=== PATIENT | female | born 1935 | race Hispanic/Latino ===

== ENCOUNTER 2016-06-07 09:10 | Inpatient (IN) | payer MEDICARE, OTHER ==
[2016-06-07 09:58] VITALS: BMI 37.9
[2016-06-07 11:01] LABS: ADD MANUAL DIFF? NO
[2016-06-07 11:23] LABS: BILIRUBIN,TOTAL 0.6 mg/dL (0.2-1.3); CALCIUM 9.8 mg/dL (8.4-10.5); POTASSIUM 4.5 mmol/L (3.6-5.0); TOTAL PROTEIN 7.9 g/dL (5.8-8.3)
[2016-06-07 11:24] LABS: BASO # 0.04 K/mm3 (0.0-2.0); BASO % 0.4 % (0.0-3.0); EOS # 0.3 (0.0-0.7); EOS % 3.7 % (1.5-5.0); GRAN % 56.1 % (50.0-68.0); HEMATOCRIT 35.9 % (36.0-48.0); LYMPH # 2.9 (1.2-3.4); LYMPH % 32.4 % (22.0-35.0); MEAN CELL VOLUME 94.5 fL (80.0-105.0); MEAN CORPUSCULAR HEMOGLOBIN 30.5 pg (25.0-35.0); MEAN CORPUSCULAR HGB CONC 32.3 g/dl (31.0-37.0); MEAN PLATELET VOLUME 11.4 fl (7.0-11.0); MONO # 0.7 (0.1-0.6); MONO % 7.4 % (1.0-6.0); PLATELET COUNT 271 10^3/uL (120.0-450.0); RED CELL DISTRIBUTION WIDTH 14.1 % (11.5-14.5); WHITE BLOOD COUNT 8.9 10^3/ul (4.5-11.0)
[2016-06-07] MEDS ORDERED: Dextrose 50% SYRINGE Inj (50 ml) IVP STA (11:33)
[2016-06-07] MEDS ORDERED: AMPICILLIN IVPB ONE (11:38)
[2016-06-07] MEDS ORDERED: SULBACTAM IVPB ONE (11:38)
--- NOTE | 2016-06-07 11:54 | ED PDOC ---
Arrival/HPI - General Historian: Patient, Family - General Chief Complaint: Lower Extremity Problem/Injury Time Seen by Provider: 06/07/16 10:16 - History of Present Illness Narrative History of Present Illness (Text): 06/07/16 11:52 80-year-old female presents today sent in by Dr. Patterson for osteomyelitis of the right second toe. Patient had second toe amputation in February has been on Levaquin at home. Patient had MRI on the which showed osteomyelitis of the distal metatarsal and proximal phalanx. Patient sent in for admission for amputation. (Haley Pan) Past Medical History - Provider Review Nursing Documentation Reviewed: Yes - Travel History Have you recently traveled outside [place] w/in the past 3 mons?: No - Infectious Disease Hx of Infectious Diseases: None - Reproductive Menopause: Yes - Cardiac Hx Hypertension: Yes - Pulmonary Hx Respiratory Disorders: No - Neurological Hx Neurological Disorder: No - HEENT Hx HEENT Disorder: No - Renal Hx Renal Disorder: No - Endocrine/Metabolic Hx Diabetes Mellitus Type 2: Yes Hx Hypothyroidism: Yes - Hematological/Oncological Hx Blood Disorders: No - Integumentary Hx Dermatological Disorder: No - Musculoskeletal/Rheumatological Hx Arthritis: Yes - Gastrointestinal Hx Gastrointestinal Disorders: No - Genitourinary/Gynecological Hx Reproductive Disorders: No - Psychiatric Hx Psychophysiologic Disorder: Yes Hx Depression: Yes Hx Substance Use: No - Surgical History Hx Amputation: Yes (LEFT GREAT TOE, RIGHT 2ND TOE) Hx Musculoskeletal Surgery: Yes - Anesthesia Hx Anesthesia: Yes Hx Anesthesia Reactions: (not known) Hx Malignant Hyperthermia: No - Suicidal Assessment Feels Threatened In Home Enviroment: No Family/Social History - Physician Review Nursing Documentation Reviewed: Yes Family/Social History: Unknown Family HX Smoking Status: Never Smoked Hx Alcohol Use: No Hx Substance Use: No Hx Substance Use Treatment: No Allergies/Home Meds Allergies/Adverse Reactions: Allergies No Known Allergies Allergy (Verified 06/07/16 09:54) Home Medications: Home Meds Medication Instructions Recorded Confirmed Acetaminophen [Tylenol 325mg tab] 650 mg PO Q4 PRN 12/27/15 06/07/16 Amino Acids/Protein Hydrolys 30 ml PO DAILY 12/27/15 06/07/16 [Pro-Stat Profile Liquid] Insulin Human NPH/Reg [HumuLIN 45 units SC QAM 12/27/15 06/07/16 70/30 (NPH/Reg)] QUEtiapine [Seroquel] 25 mg PO HS 02/23/16 06/07/16 Insulin NPH Hum/Reg Insulin Hm 20 units SC QPM 02/24/16 06/07/16 [Humulin 70-30 Vial] Metoprolol Succinate [Toprol XL] 50 mg PO DAILY 02/24/16 06/07/16 Multivit-Min/FA/Lycopen/Lutein 1 each PO DAILY 02/24/16 06/07/16 [Centrum Silver Tablet] Vitamins A and D [Vitamin A and D] 1 tab PO DAILY 02/24/16 06/07/16 levoFLOXacin [Levaquin] 500 mg PO DAILY 06/07/16 06/07/16 Review of Systems - Review of Systems Constitutional: absent: Fatigue, Fevers Respiratory: absent: SOB, Cough Cardiovascular: absent: Chest Pain, Palpitations Gastrointestinal: absent: Abdominal Pain, Nausea, Vomiting Genitourinary Female: absent: Dysuria Musculoskeletal: absent: Arthralgias Skin: Cellulitis Neurological: absent: Headache Physical Exam Vital Signs Reviewed: Yes Temperature: Afebrile Blood Pressure: Normal Pulse: Regular Respiratory Rate: Normal Appearance: Positive for: Well-Appearing, Non-Toxic, Comfortable Pain Distress: None Mental Status: Positive for: Alert and Oriented X 3 - Systems Exam Head: Present: Atraumatic Respiratory/Chest: Present: Clear to Auscultation Cardiovascular: Present: Regular Rate and Rhythm Lower Extremity: Present: Normal ROM, Swelling, Erythema, Capillary Refill < 2 s , Other (+ edema and warmth noted to left 2nd toe; ). No: CALF TENDERNESS, Tenderness, Deformity Vital Signs Temp Pulse Resp BP Pulse Ox 06/07/16 13:43 68 18 121/63 99 06/07/16 12:37 71 18 122/61 99 06/07/16 11:00 79 18 124/65 99 06/07/16 09:49 98.2 F 82 19 126/61 99 Medical Decision Making ED Course and Treatment: 06/07/16 12:46 I was available for consultation during PA evaluation. The chart reviewed by me , and I agree with disposition. The documented history was done by the physician sr. payroll processor. The documented physical exam was done by physician sr. payroll processor. The documented procedures were done by physician sr. payroll processor. (Dread Dove) 06/07/16 11:54 80-year-old female presents today for admission for right second toe osteomyelitis Patient's sent in with prescription for Unasyn and consult Dr. Oneill. CBC wnl CMP: glucose; 49 finger stick; 39 amp of d50 given. blood cultures pending: Unasyn ordered IV pt reassessment; pt non toxic; fingerstick; 101 eating sandwich in er. case discussed with dr. toledo; who saw patient at bedside discussed patients blood glucose level with dr. dove; impression: osteomyelitis admit to med/surg (Haley Pan) - Lab Interpretations Lab Results: 06/07/16 11:00 06/07/16 11:00 Lab Results 06/07/16 12:35: POC Glucose (mg/dL) 101 06/07/16 11:43: POC Glucose (mg/dL) 38 L* 06/07/16 11:00: WBC 8.9, RBC 3.80, Hgb 11.6 L, Hct 35.9 L, MCV 94.5, MCH 30.5, MCHC 32.3, RDW 14.1, Plt Count 271, MPV 11.4 H, Gran % 56.1, Lymph % (Auto) 32.4 , [place] % (Auto) 7.4 H, Eos % (Auto) 3.7, Baso % (Auto) 0.4, Gran # 5.00, Lymph # 2.9, [place] # 0.7 H, Eos # 0.3, Baso # 0.04, Sodium 140, Potassium 4.5, Chloride 102, Carbon Dioxide 30, Anion Gap 13, BUN 51 H, Creatinine 1.6 H, Est GFR ( Amer) 38, Est GFR (Non-Af Amer) 31, Random Glucose 49 L* D, Calcium 9.8, Total Bilirubin 0.6, AST 50 H, ALT 27, Alkaline Phosphatase 228 H, Total Protein 7.9, Albumin 3.9, Globulin 4.0, Albumin/Globulin Ratio 1.0 L - Medication Orders Current Medication Orders: Acetaminophen (Tylenol 325mg Tab) 650 mg PO Q4 PRN PRN Reason: Pain, Mild (1-3) Atorvastatin Calcium (Lipitor) 20 mg PO DAILY [facility] Furosemide (Lasix) 40 mg PO DAILY [facility]AME Last Admin: 06/07/16 15:58 Dose: Piperacillin Sod/Tazobactam Sod (Zosyn 3.375 In Ns 100ml) 100 mls @ 200 mls/hr IVPB Q8 [facility] PRN Reason: Protocol Stop: 06/14/16 14:01 Insulin Human Lispro (Humalog Med) 0 units SC ACHS [facility] PRN Reason: Protocol Levothyroxine Sodium (Synthroid) 75 mcg PO DAILY [facility] Last Admin: 06/07/16 16:00 Dose: Metoprolol Succinate (Toprol Xl) 50 mg PO DAILY [facility] Last Admin: 06/07/16 16:00 Dose: Non-Formulary Medication (Calcium Carbonate/Vitamin D [Caltrate 600 + D 600 Mg- 200 Iu]) 1 tab PO BID [facility] Pantoprazole Sodium (Protonix Ec Tab) 40 mg PO 0730 [facility] Potassium Chloride (K-Dur 20 Meq Er Tab) 20 meq PO DAILY [facility] Last Admin: 06/07/16 15:58 Dose: Quetiapine Fumarate (Seroquel) 25 mg PO HS [facility] PRN Reason: Protocol Discontinued Medications Dextrose (Dextrose 50% Inj) 50 ml IVP STAT STA Stop: 06/07/16 11:34 Last Admin: 06/07/16 11:52 Dose: 50 ML IVP Administration Document 06/07/16 11:52 EQ (Rec: 06/07/16 11:52 EQ [id number]) Charges for Administration # of IVP Administrations 1 Ampicillin Sodium/Sulbactam Sodium (Unasyn 1 Gm-0.5 Gm) 100 mls @ 100 mls/hr IVPB ONCE ONE PRN Reason: Protocol Stop: 06/07/16 12:37 Last Admin: 06/07/16 12:42 Dose: 100 MLS/HR eMAR Start Stop Document 06/07/16 12:42 EQ (Rec: 06/07/16 12:43 EQ [id number]) Intravenous Solution Start Date 06/07/16 Start Time 12:42 Disposition/Present on Arrival - Present on Arrival Any Indicators Present on Arrival: Yes History of DVT/PE: No History of Uncontrolled Diabetes: Yes Urinary Catheter: No History of Decub. Ulcer: No History Surgical Site Infection Following: None - Disposition Have Diagnosis and Disposition been Completed?: Yes Disposition Time: 11:20 Patient Plan: Admission - Disposition Diagnosis: Osteomyelitis Disposition: HOSPITALIZED Patient Problems: Current Active Problems Problem Status Diagnosed Osteomyelitis Acute Condition: FAIR
[2016-06-07] MEDS ORDERED: Vancomycin 1gm in NS 250ml 250 ML IVPB SCH (13:00)
[2016-06-07] MEDS ORDERED: Levothyroxine 75 MCG TAB PO SCH (13:00)
[2016-06-07] MEDS ORDERED: Metoprolol Succinate 50 mg XL Tab PO SCH (13:00)
--- NOTE | 2016-06-07 13:45 | HP ---
The patient is a 80-year-old white female who was seen by Dr. Patterson this morning. She was being fo llowed by Dr. Patterson in the wound care center. She felt that patient has osteomyelitis of right sec ond toe, so she ordered MRI on 06/04, that shows osteomyelitis of distal metatarsal and proximal phala nx and so she is being referred to be admitted and possible amputation. Denies any fever or chills. No history of nausea or vomiting. She has been strictly controlling her diabetes lately. No histor y of cough, congestion. No nausea or vomiting. PAST MEDICAL HISTORY: Significant for: 1. Insulin-dependent diabetes. 2. Hypertension. 3. Chronic left heel ulcer. 4. Peripheral vascular disease. 5. 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 6. Status post fall and had ____ trochanteric fracture. 7. Morbid obesity. 8. Hypertension. ALLERGIES: She is not allergic to any medications. MEDICATIONS AT HOME: She is on Seroquel 25 at bedtime, potassium 20 mEq daily, Protonix 40 daily, mu ltivitamin, levothyroxine 75 mcg daily, Levemir 8 units at bedtime, atorvastatin 20 mg daily. SOCIAL HISTORY: She is single, lives with her daughter. Denies smoking, drinking or alcohol use. REVIEW OF SYSTEMS: Significant for bilateral hand deformity, difficulty grabbing things with good st rength. 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 Complained of back pain, complained of discomfort in the feet. PHYSICAL EXAMINATION: GENERAL: On examination, she is awake and alert, communicative. VITAL SIGNS: She is afebrile, pulse 79, respirations 18, blood pressure 122/61. LUNGS: Bilateral good airflow, no rhonchi or crackle. HEART: S1, S2 audible, no murmur. ABDOMEN: Soft, nontender, no rebound, no guarding. NEUROLOGIC: The patient is awake and alert, communicative. Moves all extremities. Status post left greater toe and second toe amputation. Left second toe positive erythema, edema. ASSESSMENT AND PLAN: 1. Right second toe osteomyelitis. 2. Insulin-dependent diabetes. 3. Hypertension. 4. Hyperlipidemia. 5. Peripheral vascular disease. 6. Deconditioning and difficulty walking. PLAN: The patient will be started on IV antibiotic. Cultures have been done. We will monitor blood sugar closely. Resume her usual medication. Dr. Patterson and ID on consult. Liam Fernandez MD cc: [phone] TT: 06/07/2016 13:44:27 sn
[2016-06-07] MEDS ORDERED: Piperacillin/Tazobact 3.375 gm 100 ML IVPB SCH (14:00)
[2016-06-07] MEDS: Potassium Chloride 20 mEq ER Tab PO SCH (15:58)
[2016-06-07] MEDS ORDERED: CALCIUM CARBONATE PO SCH (18:00)
[2016-06-07] MEDS ORDERED: VITAMIN D PO SCH (18:00)
[2016-06-07] MEDS ORDERED: [UNRECOGNIZED DRUG - OTHER] PO SCH (18:00)
[2016-06-07] MEDS: Insulin Lispro (humaLOG) MEDIUM Coverage SC SCH ×2 (18:02→22:30)
[2016-06-07] MEDS: Insulin Human NPH/Reg 70/30 Vial(3 ml) SC SCH (18:03)
[2016-06-07] MEDS ORDERED: Dextrose 5%/0.45% NS 1,000 ML IV SCH (19:00)
--- NOTE | 2016-06-07 19:59 | US ---
PROCEDURE: Lower extremity MCKENNA exam HISTORY: Peripheral vascular disease with pain and ulceration.. Diabetes. PHYSICIAN(S): Grant De La Rosa MD. FINDINGS: The resting MCKENNA's are normal: right, 1.01and left, 1.02. The brachial systolic pressures are symmetric. The low thigh pressures and waveforms are relatively normal. The calf PVR waveforms augment normally. No significant gradients are noted across the thighs. The ankle and metatarsal waveforms are relatively normal and symmetric. No significant pressure gradients are noted across the lower legs. IMPRESSION: 1. Relatively normal MCKENNA and PVR examination at rest.
--- NOTE | 2016-06-07 20:51 | CARD ---
APPROVED REPORT EKG Measurement Heart [id number] <Conclusion> Sinus rhythm with 1st degree AV block Moderate voltage criteria for LVH, may be normal variant Cannot rule out Septal infarct, age undetermined Abnormal ECG
[2016-06-07] MEDS ORDERED: Influenza Vaccine 45 MCG/0.5 ml IM ONE (20:52)
[2016-06-07] MEDS ORDERED: Pneumococcal 23-Valent Vaccine IM ONE (20:52)
[2016-06-07] MEDS: Piperacillin/Tazobact 3.375 gm 100 ML IVPB SCH (21:22)
[2016-06-08] MEDS: Piperacillin/Tazobact 3.375 gm 100 ML IVPB SCH ×3 (05:17→23:34)
[2016-06-08] MEDS ORDERED: Lidocaine 2% Inj (20ml) ONE (07:25)
[2016-06-08] MEDS ORDERED: Gentamicin 80 mg/2mL Inj. ONE (07:25)
[2016-06-08] MEDS: Insulin Lispro (humaLOG) MEDIUM Coverage SC SCH ×4 (07:30→21:44)
[2016-06-08] MEDS ORDERED: HYDROmorphone 0.5 mg/0.5 ml ISec IVP PRN (07:52)
[2016-06-08] MEDS ORDERED: Propofol 10 mg/ml Inj (20 ML) ONE (08:02)
[2016-06-08] MEDS ORDERED: Midazolam 5 MG/5 ML VIAL ONE (08:02)
--- NOTE | 2016-06-08 09:28 | PCM.SURG1 ---
Surgeon's Initial Post Op Note - Surgeon's Notes Surgeon: Dr. Patterson Model Set Artist: Dr. Taylor PGY-1 Type of Anesthesia: IV Sedation, Local Anesthesia Administered By: Dr. Owens Pre-Operative Diagnosis: right foot 2nd digit osteomyelitis Operative Findings: see dictation. 16ml 2% lidocaine plain. 3-0 vicryl, 3-0 nylon. KARO drain Post-Operative Diagnosis: same as preop Operation Performed: right foot 2nd digit amputation with metatarsal head resection Specimen/Specimens Removed: bone and soft tissue Estimated Blood Loss: EBL {In ML}: 20 Blood Products Given: N/A Drains Used: Haim Apple Post-Op Condition: Good Date of Surgery/Procedure: 06/08/16 Time of Surgery/Procedure: 08:00
[2016-06-08] MEDS ORDERED: Oxycodone/Acetaminophen 5/325 mg Tab PO PRN ×2 (09:29)
--- NOTE | 2016-06-08 10:41 | RAD ---
HISTORY: pre-op COMPARISON: Comparison is made to 02/23/2016 FINDINGS: LUNGS: No evidence of new infiltrate or consolidation in the lungs. PLEURA: No significant pleural effusion identified, no pneumothorax apparent. CARDIOVASCULAR: Normal. OSSEOUS STRUCTURES: No significant abnormalities. VISUALIZED UPPER ABDOMEN: Normal. OTHER FINDINGS: None. IMPRESSION: No active disease.
[2016-06-08] MEDS: Insulin Human NPH/Reg 70/30 Vial(3 ml) SC SCH ×2 (11:00→17:20)
[2016-06-08] MEDS: Potassium Chloride 20 mEq ER Tab PO SCH (11:15)
[2016-06-08] MEDS: Cholecalciferol 400 Intl Units Tab PO SCH (11:16)
[2016-06-08] MEDS: Levothyroxine 75 MCG TAB PO SCH (11:16)
[2016-06-08] MEDS: Metoprolol Succinate 25 mg XL Tab PO SCH (11:16)
[2016-06-08] MEDS: Pantoprazole 40 mg EC Tab PO SCH (11:16)
[2016-06-08] MEDS ORDERED: Metoprolol Succinate 50 mg XL Tab PO SCH (13:00)
--- NOTE | 2016-06-08 13:20 | PN ---
DATE: 06/08/2016 The patient is a 80-year-old. She is examined lying in bed. She just came from surgery. She had ri ght 2nd toe amputation done today with KARO drain in. PHYSICAL EXAMINATION: GENERAL: She is awake, alert, oriented, communicative, not in any distress. VITAL SIGNS: She is afebrile, pulse 93, respirations 20, blood pressure 157/79. LUNGS: Bilateral fair airflow, no rhonchi or crackle. HEART: S1, S2 audible. ABDOMEN: Soft, obese, nontender, no rebound, no guarding. NEUROLOGIC: She is awake and alert, communicative. EXTREMITIES: Moves all extremities. The right foot is wrapped. The left heel is also wrapped in dr ness. LABORATORY: ESR is 66. Chemistry: Blood sugar is 249. Blood cultures are negative. ASSESSMENT AND PLAN: 1. Right 2nd toe osteomyelitis, status post amputation. 2. Non-insulin dependent diabetes. 3. Hypertension. 4. Left heel ulcer healing. 5. Microvascular disease. 6. Bilateral hand deformities status post multiple surgeries by . 7. Morbid obesity. 8. Hypertension. 9. Healing right buttock ulcer. PLAN: Currently, the patient is on aspirin 81 daily. She is on losartan. Monitor blood sugar. She is on potassium supplementation. She is getting p.o. Lasix, statins, painkillers have been started, Percocet by Dr. Patterson. Started on some Colace for opiate-induced constipation. She is getting Zo syn q. 8 hours and will continue that. We will start her on DVT prophylaxis . Follow up CBC an d CMP in a.m. Liam Fernandez MD cc: [id number] TT: 06/08/2016 13:19:01 Confirmation # [id number] Dictation # [id number]
--- NOTE | 2016-06-08 13:37 | RAD ---
PROCEDURE: Right Foot Radiographs. HISTORY: s/p right foot surgery COMPARISON: Preoperative study 06/07/2016. FINDINGS: BONES: Status post resection of 2nd digit and distal 2nd metatarsal. Surgical drains identified. Otherwise no interval change. Stable appearance of distal 5th metatarsal fracture. JOINTS: Findings suggest Charcot common neuropathic foot. SOFT TISSUES: Normal. OTHER FINDINGS: None. IMPRESSION: Satisfactory postoperative status.
--- NOTE | 2016-06-08 13:59 | CP.PCM.CON ---
History of Present Illness - History of Present Illness History of Present Illness: 80 year old female with PMH of obesity with BMI 38, osteoarthritis, HTN, DM, hypothyroidism, S/P left toe amputation, S/P right hip surgery was sent by Dr. Patterson for admission because of osteomyelitis of the right 2nd toe (proximal phalanx and distal metatarsal area) as seen on the MRI which was done on June 04. The patient is for OR today and I saw her shortly before the surgery. Infectious Diseases consult is requested for antibiotic management. The patient prior to OR had no fever or chills, no nausea or vomiting, no chest pain, no headache, no diarrhea, no dysuria. Social history: no smoking, no alcohol abuse, no illicit drug use Review of Systems - Review of Systems All systems: reviewed and no additional remarkable complaints except (as per HPI ) Past Patient History - Infectious Disease Hx of Infectious Diseases: None - Past Medical History & Family History Past Medical History?: Yes Past Family History: Reviewed and not pertinent - Past Social History Smoking Status: Never Smoked Alcohol: None Drugs: Denies - CARDIAC Hx Hypertension: Yes - PULMONARY Hx Respiratory Disorders: No - NEUROLOGICAL Hx Neurological Disorder: No - HEENT Hx HEENT Problems: No - RENAL Hx Chronic Kidney Disease: No - ENDOCRINE/METABOLIC Hx Diabetes Mellitus Type 2: Yes Hx Hypothyroidism: Yes - HEMATOLOGICAL/ONCOLOGICAL Hx Blood Disorders: No - INTEGUMENTARY Hx Dermatological Problems: No - MUSCULOSKELETAL/RHEUMATOLOGICAL Hx Arthritis: Yes - GASTROINTESTINAL Hx Gastrointestinal Disorders: No - GENITOURINARY/GYNECOLOGICAL Hx Reproductive Disorders: No - PSYCHIATRIC Hx Psychophysiologic Disorder: Yes Hx Depression: Yes Hx Substance Use: No - SURGICAL HISTORY Hx Amputation: Yes (LEFT GREAT TOE, RIGHT 2ND TOE) Hx Musculoskeletal Surgery: Yes - ANESTHESIA Hx Anesthesia: Yes Hx Anesthesia Reactions: (not known) Hx Malignant Hyperthermia: No Meds Allergies/Adverse Reactions: Allergies Allergy/AdvReac Type Severity Reaction Status Date / Time No Known Allergies Allergy Verified 06/07/16 18:35 - Medications Medications: Current Medications Acetaminophen (Tylenol 325mg Tab) 650 mg PO Q4 PRN PRN Reason: Pain, Mild (1-3) Atorvastatin Calcium (Lipitor) 20 mg PO DAILY [facility] Furosemide (Lasix) 40 mg PO DAILY [facility] Vancomycin HCl (Vancomycin 1gm) 250 mls @ 167 mls/hr IVPB Q12H [facility] PRN Reason: Protocol Piperacillin Sod/Tazobactam Sod (Zosyn 3.375 In Ns 100ml) 100 mls @ 200 mls/hr IVPB Q8 [facility] PRN Reason: Protocol Stop: 06/07/16 22:29 Insulin Human Lispro (Humalog Med) 0 units SC ACHS [facility] PRN Reason: Protocol Levothyroxine Sodium (Synthroid) 75 mcg PO DAILY [facility] Metoprolol Succinate (Toprol Xl) 50 mg PO DAILY [facility] Non-Formulary Medication (Calcium Carbonate/Vitamin D [Caltrate 600 + D 600 Mg- 200 Iu]) 1 tab PO BID [facility] Pantoprazole Sodium (Protonix Ec Tab) 40 mg PO 0730 [facility] Potassium Chloride (K-Dur 20 Meq Er Tab) 20 meq PO DAILY [facility] Quetiapine Fumarate (Seroquel) 25 mg PO HS [facility] PRN Reason: Protocol Physical Exam - Constitutional Appears: Non-toxic, No Acute Distress - Head Exam Head Exam: NORMAL INSPECTION - Respiratory Exam Respiratory Exam: Decreased Breath Sounds - Cardiovascular Exam Cardiovascular Exam: +S1, +S2 - GI/Abdominal Exam GI & Abdominal Exam: Soft. absent: Tenderness - Extremities Exam Additional comments: right foot with dressings in place Results - Vital Signs Recent Vital Signs: Last Vital Signs Temp 98.2 F 06/07/16 09:49 Pulse 68 06/07/16 13:43 Resp 18 06/07/16 13:43 BP 121/63 06/07/16 13:43 Pulse Ox 99 06/07/16 13:43 - Labs Result Diagrams: 06/07/16 11:00 06/07/16 11:00 Assessment & Plan - Assessment and Plan (Free Text) Plan: Assessment 2nd right toe and metatarsal head osteomyelitis S/P surgery today chronic renal failure obesity with BMI 38 osteoarthritis HTN DM hypothyroidism S/P left toe amputation S/P right hip surgery Plan Started patient on Zyvox and Zosyn pending blood cx, OR cx and pathology Will follow clinically
[2016-06-08] MEDS: Linezolid 600 mg in D5W 300 ml 300 ML IVPB SCH (14:00)
--- NOTE | 2016-06-08 14:52 | RAD ---
PROCEDURE: Right Foot Radiographs. HISTORY: DM/PVD COMPARISON: 02/26/2016. FINDINGS: BONES: Ostial lipases primarily at the level of the 2nd metatarsal consistent with acute osteomyelitis, these are new findings compared to the prior study. JOINTS: Normal. SOFT TISSUES: Neck considerable soft tissue swelling primarily centered about the 2nd digit. Overall soft tissue swelling is increased compared to the prior study. OTHER FINDINGS: None. IMPRESSION: Finding consistent with an highly suggestive of acute osteomyelitis at the level of the 2nd distal metatarsal.
[2016-06-08 15:56] LABS: HEMATOCRIT 32.4 % (36.0-48.0); MEAN CELL VOLUME 92.8 fL (80.0-105.0); MEAN CORPUSCULAR HEMOGLOBIN 30.4 pg (25.0-35.0); MEAN CORPUSCULAR HGB CONC 32.7 g/dl (31.0-37.0); MEAN PLATELET VOLUME 11.1 fl (7.0-11.0); RED CELL DISTRIBUTION WIDTH 13.9 % (11.5-14.5); WHITE BLOOD COUNT 6.9 10^3/ul (4.5-11.0)
[2016-06-08 16:09] LABS: ALB/GLOB RATIO 0.9 (1.1-1.8); BILIRUBIN,TOTAL 0.5 mg/dL (0.2-1.3); CALCIUM 8.8 mg/dL (8.4-10.5); POTASSIUM 4.3 mmol/L (3.6-5.0); TOTAL PROTEIN 6.7 g/dL (5.8-8.3)
--- NOTE | 2016-06-08 21:26 | OP ---
PROCEDURE DATE: 06/08/2016 SURGEON: Dr. Patterson. ELECTRICAL SYSTEMS DESIGNER: Dr. Alan, PGY 1. ANESTHESIOLOGIST: Dr. Owens. ANESTHESIA: IV sedation with local anesthetic. PREOPERATIVE DIAGNOSIS: Right foot second digit osteomyelitis. POSTOPERATIVE DIAGNOSIS: Right foot second digit osteomyelitis. PROCEDURE PERFORMED: Right foot second digit amputation with metatarsal head resection. INDICATIONS: The patient is a 80-year-old female with the above diagnoses. The patient has exhauste d all conservative treatment at this time and now requires surgical intervention. The patient signed the consent after careful explanation of risks, benefits, complications and alternatives for surgica l procedure. No guarantees were given nor implied. N.p.o. status was confirmed prior to taking the patient to the operating room. The patient was then brought into the operating room and placed on e operating room table in a supine position. Timeout was performed for identification of the correct patient and procedure. After induction of IV sedation, the patient received a total of 16 mL of 2% lidocaine plain in a local block type fashion to the right foot. The right foot was then prepped and draped in a normal sterile manner and the procedure began. No tourniquet was used during the proced ure. DESCRIPTION OF PROCEDURE: Attention was then drawn to the right second digit where a linear longitud inal incision was made just along the distal metatarsal shaft extending as a racquet type incision ar ound the second digit circumferentially using a #15 blade. The incision was then extended down throu gh subcutaneous tissue down to the level of bone. Using a bone clamp to stabilize the toe, all of e soft tissue structures were released and detached from its insertion. The second digit was then di sarticulated from the foot at the level of the second metatarsophalangeal joint. Upon examination of the second digit, the bone was noted to be soft with erosive changes. The specimen was then passed from the operative field and sent to pathology. At this time, using a sagittal saw, the distal aspec t of the second metatarsal at the level of the metatarsal neck was resected. A rongeur was then used to remove a specimen of the second metatarsal and sent to pathology. Using a fresh #15 blade, all n ecrotic and nonviable tissue was then excisionally debrided from the surgical site. The surgical sit e was then copiously flushed with a 3 liter bag of saline using a pulse lavage. At this time, the dhillon bcutaneous tissue was then reapproximated using 3-0 Vicryl, and skin layers were then reapproximated and coapted using 3-0 nylon in a simple suture technique. The right foot was then dressed with Adapt ic, 4 x 4 gauze, Kerlix, and Satish. Immediate capillary refill time was noted to the surgical site. POSTOPERATIVE CONDITION: The patient tolerated the anesthesia and procedure well and was escorted to the recovery room with vital signs stable and neurovascular status intact to the right foot. Podana rodarte will continue to follow the patient while the patient remains in the hospital. The patient will f ollow up with Dr. Patterson upon discharge. MIO ALAN DPM Brinda Patterson DPM cc: [id number] TT: 06/08/2016 21:26:03 spike
[2016-06-09] MEDS: Piperacillin/Tazobact 3.375 gm 100 ML IVPB SCH ×3 (05:31→21:04)
[2016-06-09] MEDS: Levothyroxine 75 MCG TAB PO SCH (08:26)
[2016-06-09] MEDS: Insulin Lispro (humaLOG) MEDIUM Coverage SC SCH ×4 (08:26→22:20)
[2016-06-09] MEDS: Pantoprazole 40 mg EC Tab PO SCH (08:26)
--- NOTE | 2016-06-09 08:49 | CP.PCM.PN ---
<Wil Taylora - Last Filed: 06/09/16 08:45> Subjective - Date & Time of Evaluation Date of Evaluation: 06/09/16 Time of Evaluation: 08:46 - Subjective Subjective: 80 y/o female seen at bedside 1 day s/p right 2nd digit amputation with metatarsal head resection. Patient was seen with attending Dr. Patterson. Patient denies any acute events overnight. Her dressing remains clean,dry,intact, multipodus boot intact to left foot. Patient denies any n/f/c/v/d/sob. Objective - Vital Signs/Intake and Output Vital Signs (last 24 hours): Temp Pulse Resp BP Pulse Ox 98.2 F 71 18 105/59 L 95 06/09/16 08:31 06/09/16 08:31 06/09/16 08:31 06/09/16 08:31 06/09/16 08:31 Intake and Output: 06/09/16 06/09/16 06:59 18:59 Output Total 315 Balance -315 - Medications Medications: Current Medications Acetaminophen (Tylenol 325mg Tab) 650 mg PO Q4 PRN PRN Reason: Pain, Mild (1-3) Last Admin: 06/08/16 17:32 Dose: 650 mg Aspirin (Aspirin Chewable) 81 mg PO DAILY [facility] Last Admin: 06/08/16 11:14 Dose: 81 mg Atorvastatin Calcium (Lipitor) 20 mg PO HS [facility] Last Admin: 06/08/16 21:09 Dose: 20 mg Calcium Carbonate (Caltrate) 600 mg PO BID [facility] Last Admin: 06/08/16 17:21 Dose: 600 mg Docusate Sodium (Colace) 200 mg PO DAILY [facility] Last Admin: 06/08/16 13:00 Dose: 200 mg Enoxaparin Sodium (Lovenox) 40 mg SC DAILY [facility] PRN Reason: Protocol Furosemide (Lasix) 20 mg PO DAILY [facility] Piperacillin Sod/Tazobactam Sod (Zosyn 3.375 In Ns 100ml) 100 mls @ 200 mls/hr IVPB Q8 [facility] PRN Reason: Protocol Stop: 06/14/16 14:01 Last Admin: 06/09/16 05:31 Dose: 200 mls/hr Linezolid (Zyvox 600mg/300ml D5w) 300 mls @ 200 mls/hr IVPB Q12 [facility] PRN Reason: Protocol Stop: 06/15/16 14:01 Last Admin: 06/08/16 14:00 Dose: 200 mls/hr Insulin Human Lispro (Humalog Med) 0 units SC ACHS [facility] PRN Reason: Protocol Last Admin: 06/09/16 08:26 Dose: 1 units Levothyroxine Sodium (Synthroid) 75 mcg PO 0800 [facility] Last Admin: 06/09/16 08:26 Dose: 75 mcg Losartan Potassium (Cozaar) 25 mg PO DAILY [facility] Last Admin: 06/08/16 11:14 Dose: 25 mg Metoprolol Succinate (Toprol Xl) 25 mg PO DAILY [facility] Last Admin: 06/08/16 11:16 Dose: 25 mg Oxycodone/Acetaminophen (Percocet 5/325 Mg Tab) 1 tab PO Q4H PRN PRN Reason: Pain, moderate (4-7) Stop: 06/11/16 09:30 Oxycodone/Acetaminophen (Percocet 5/325 Mg Tab) 2 tab PO Q4H PRN PRN Reason: Pain, severe (8-10) Stop: 06/11/16 09:30 Last Admin: 06/09/16 00:30 Dose: 2 tab Pantoprazole Sodium (Protonix Ec Tab) 40 mg PO 0730 [facility] Last Admin: 06/09/16 08:26 Dose: 40 mg Potassium Chloride (K-Dur 20 Meq Er Tab) 20 meq PO DAILY [facility] Last Admin: 06/08/16 11:15 Dose: 20 meq Quetiapine Fumarate (Seroquel) 50 mg PO HS [facility] PRN Reason: Protocol Last Admin: 06/08/16 21:09 Dose: 50 mg Vitamin D (Vitamin D 400 Intl Units Tab) 400 intlu PO DAILY [facility] Last Admin: 06/08/16 11:16 Dose: 400 intlu - Labs Labs: 06/08/16 15:52 06/08/16 15:52 - Constitutional Appears: Well, Non-toxic, No Acute Distress - Extremities Exam Additional comments: Vasc: palpable DP and PT pulses, CFT < 3 sec to all digits, TG wnl, nonpitting edema to right foot noted neuro: grossly diminished derm: nonpitting edema, no erythema, sutures intact, surgical incision site well coapted,no dehiscence, no drainage, no purulence, no active bleeding, KARO drain intact left heel- superficial ulceration with fibrotic base and hyperkeratotic border measuring 2cm x 2cm x 0.2 cm, mild serous drainage, no purulence, no acute clinical signs of infection ortho: no pain on palpation to surgical site - Neurological Exam Neurological Exam: Alert, Awake, Oriented x3 - Psychiatric Exam Psychiatric exam: Normal Affect, Normal Mood Assessment and Plan - Assessment and Plan (Free Text) Assessment: 80 y/o female seen at bedside 1 day s/p right 2nd digit amputation with metatarsal head resection Plan: patient evaluated and chart reviewed seen at bedside with attending Dr. Patterson labs and vitals reviewed, afebrile continue IV abx as per ID KARO drain pulled from right foot cleansed surgical site with saline, applied xeroform, DSD, kerlix, OLGA LIDIA to right foot cleansed left foot with saline, applied xeroform, DSD, kerlix to left heel continue wearing multipodus boot while in bed podiatry will continue to monitor while patient remains in house <Brinda Patterson - Last Filed: 06/11/16 14:55> Objective - Vital Signs/Intake and Output Vital Signs (last 24 hours): Temp Pulse Resp BP Pulse Ox 98.8 F 84 18 90/64 L 98 06/10/16 16:00 06/10/16 16:00 06/10/16 16:00 06/10/16 16:30 06/10/16 16:00 - Labs Labs: 06/10/16 07:00 06/10/16 07:00 Attending/Attestation - Attestation I have personally seen and examined this patient.: Yes I have fully participated in the care of the patient.: Yes I have reviewed all pertinent clinical information, including history, physical exam and plan: Yes
[2016-06-09] MEDS: Potassium Chloride 20 mEq ER Tab PO SCH (10:01)
[2016-06-09] MEDS: Metoprolol Succinate 25 mg XL Tab PO SCH (10:02)
[2016-06-09] MEDS: Cholecalciferol 400 Intl Units Tab PO SCH (10:02)
[2016-06-09] MEDS: Insulin Human NPH/Reg 70/30 Vial(3 ml) SC SCH ×2 (10:03→17:19)
[2016-06-09] MEDS: Enoxaparin 40 mg Syringe SC SCH (10:03)
[2016-06-09] MEDS: Linezolid 600 mg in D5W 300 ml 300 ML IVPB SCH (10:04)
[2016-06-09] MEDS: Nystatin 100,000 Units/gm Topical Pow(15 gm) TOP SCH ×2 (15:30→17:18)
--- NOTE | 2016-06-10 04:29 | CP.PCM.CON ---
History of Present Illness - History of Present Illness History of Present Illness: 80 year old female with PMH of obesity with BMI 38, osteoarthritis, HTN, DM, hypothyroidism, S/P left toe amputation is admitted for osteomyelitis of the right 2nd toe (proximal phalanx and distal metatarsal area). Surgery consult is requested for sacral decubitous ulcer. This pt is known to Dr. Elliott for treating sacral decubitous ulcer. She had fall injury in 11/2015 and hava been having limited mobility since then. In 12/2015 she developed sacral ulcer and was treated with iodine and sanytyl. Currently wet to dry daily dressing change. Last time dressing change was last night. Pt denies pain on the location and reports that she has been turning sides. Pt reports having lose stool. She was on recent ABX regimen for foot infection. Pt is POD 2 s/p R toe amputation. The patient prior to OR had no fever or chills, no nausea or vomiting, no chest pain, no headache, no diarrhea, no dysuria. WBC 7k. blood Cx has no growth for 48hrs. Social history: no smoking, no alcohol abuse, no illicit drug use PMH: Osteomyelitis, obesity with BMI 38, osteoarthritis, HTN, DM, hypothyroidism PSH: b/l toe amputation Review of Systems - Constitutional Constitutional: absent: Anorexia, Chills, Fatigue, Fever, Malaise - EENT Eyes: absent: Blurred Vision Ears: absent: Decreased Hearing, Dizziness - Cardiovascular Cardiovascular: absent: Chest Pain - Respiratory Respiratory: absent: Cough - Gastrointestinal Gastrointestinal: Diarrhea, Loose Stools. absent: Abdominal Pain Past Patient History - Infectious Disease Hx of Infectious Diseases: None - Past Medical History & Family History Past Medical History?: Yes Past Family History: Reviewed and not pertinent - Past Social History Smoking Status: Never Smoked Alcohol: None Drugs: Denies - CARDIAC Hx Cardiac Disorders: Yes Hx Hypertension: Yes - PULMONARY Hx Respiratory Disorders: No - NEUROLOGICAL Hx Neurological Disorder: No - HEENT Hx HEENT Problems: No - RENAL Hx Chronic Kidney Disease: No - ENDOCRINE/METABOLIC Hx Diabetes Mellitus Type 2: Yes Hx Hypothyroidism: Yes - HEMATOLOGICAL/ONCOLOGICAL Hx Blood Disorders: No - INTEGUMENTARY Hx Dermatological Problems: No - MUSCULOSKELETAL/RHEUMATOLOGICAL Hx Arthritis: Yes - GASTROINTESTINAL Hx Gastrointestinal Disorders: No - GENITOURINARY/GYNECOLOGICAL Hx Reproductive Disorders: No - PSYCHIATRIC Hx Psychophysiologic Disorder: Yes Hx Depression: Yes Hx Substance Use: No - SURGICAL HISTORY Hx Amputation: Yes (LEFT GREAT TOE, RIGHT 2ND TOE) Hx Musculoskeletal Surgery: Yes - ANESTHESIA Hx Anesthesia: Yes Hx Anesthesia Reactions: (not known) Hx Malignant Hyperthermia: No Meds Allergies/Adverse Reactions: Allergies Allergy/AdvReac Type Severity Reaction Status Date / Time No Known Allergies Allergy Verified 06/07/16 18:35 - Medications Medications: Current Medications Acetaminophen (Tylenol 325mg Tab) 650 mg PO Q4 PRN PRN Reason: Pain, Mild (1-3) Last Admin: 06/09/16 21:50 Dose: 650 mg Aspirin (Aspirin Chewable) 81 mg PO DAILY [facility] Last Admin: 06/09/16 10:01 Dose: 81 mg Atorvastatin Calcium (Lipitor) 20 mg PO HS [facility] Last Admin: 06/09/16 21:01 Dose: 20 mg Calcium Carbonate (Caltrate) 600 mg PO BID [facility] Last Admin: 06/09/16 17:18 Dose: 600 mg Docusate Sodium (Colace) 200 mg PO DAILY [facility] Last Admin: 06/09/16 10:06 Dose: Not Given Enoxaparin Sodium (Lovenox) 40 mg SC DAILY [facility] PRN Reason: Protocol Last Admin: 06/09/16 10:03 Dose: 40 mg Furosemide (Lasix) 20 mg PO DAILY [facility] Last Admin: 06/09/16 10:00 Dose: 20 mg Piperacillin Sod/Tazobactam Sod (Zosyn 3.375 In Ns 100ml) 100 mls @ 200 mls/hr IVPB Q8 [facility] PRN Reason: Protocol Stop: 06/14/16 14:01 Last Admin: 06/09/16 21:04 Dose: 200 mls/hr Insulin Human Regular (Humulin R Low) 0 units SC ACHS [facility] PRN Reason: Protocol Levothyroxine Sodium (Synthroid) 75 mcg PO 0800 [facility] Last Admin: 06/09/16 08:26 Dose: 75 mcg Linezolid (Zyvox) 600 mg PO BID [facility] PRN Reason: Protocol Last Admin: 06/09/16 17:18 Dose: 600 mg Losartan Potassium (Cozaar) 25 mg PO DAILY [facility] Last Admin: 06/09/16 10:02 Dose: Not Given Metoprolol Succinate (Toprol Xl) 25 mg PO DAILY [facility] Last Admin: 06/09/16 10:02 Dose: Not Given Nystatin (Nystop Topical Powder) 0 gm TOP BID [facility] Last Admin: 06/09/16 17:18 Dose: 1 unit Oxycodone/Acetaminophen (Percocet 5/325 Mg Tab) 1 tab PO Q4H PRN PRN Reason: Pain, moderate (4-7) Stop: 06/11/16 09:30 Oxycodone/Acetaminophen (Percocet 5/325 Mg Tab) 2 tab PO Q4H PRN PRN Reason: Pain, severe (8-10) Stop: 06/11/16 09:30 Last Admin: 06/09/16 00:30 Dose: 2 tab Pantoprazole Sodium (Protonix Ec Tab) 40 mg PO 0730 [facility] Last Admin: 06/09/16 08:26 Dose: 40 mg Potassium Chloride (K-Dur 20 Meq Er Tab) 20 meq PO DAILY [facility] Last Admin: 06/09/16 10:01 Dose: 20 meq Quetiapine Fumarate (Seroquel) 50 mg PO HS [facility] PRN Reason: Protocol Last Admin: 06/09/16 21:46 Dose: 50 mg Vitamin D (Vitamin D 400 Intl Units Tab) 400 intlu PO DAILY [facility] Last Admin: 06/09/16 10:02 Dose: 400 intlu Physical Exam - Constitutional Appears: No Acute Distress - Head Exam Head Exam: ATRAUMATIC, NORMAL INSPECTION, NORMOCEPHALIC - Eye Exam Eye Exam: EOMI, Normal appearance, PERRL Pupil Exam: NORMAL ACCOMODATION, PERRL - ENT Exam ENT Exam: Mucous Membranes Moist, Normal Exam - Neck Exam Neck exam: Positive for: Normal Inspection - Respiratory Exam Respiratory Exam: Clear to Auscultation Bilateral, NORMAL BREATHING PATTERN - Cardiovascular Exam Cardiovascular Exam: REGULAR RHYTHM - GI/Abdominal Exam GI & Abdominal Exam: Normal Bowel Sounds, Soft. absent: Distended, Firm, Tenderness - Rectal Exam Rectal Exam: NORMAL INSPECTION - Exam Exam: NORMAL INSPECTION - Extremities Exam Extremities exam: Positive for: normal inspection - Back Exam Back exam: NORMAL INSPECTION - Neurological Exam Neurological exam: Alert, CN II-XII Intact, Oriented x3, Reflexes Normal - Psychiatric Exam Psychiatric exam: Normal Affect, Normal Mood - Skin Skin Exam: Dry, Erythema, Intact, Warm Additional comments: L hip: 1cm central excoriation. 3cm erythema. Mild induration. No fluctuant. Optiform in place Results - Vital Signs Recent Vital Signs: Last Vital Signs Temp 98.5 F 06/09/16 16:00 Pulse 92 H 06/09/16 16:00 Resp 18 06/09/16 16:00 BP 131/60 06/09/16 16:00 Pulse Ox 96 06/09/16 16:00 - Labs Result Diagrams: 06/08/16 15:52 06/08/16 15:52 Labs: Laboratory Results - last 24 hr 06/09/16 06/09/16 06/09/16 07:22 11:33 16:07 POC Glucose (mg/dL) 177 H 333 H 176 H 06/09/16 21:51 POC Glucose (mg/dL) 108 Assessment & Plan - Assessment and Plan (Free Text) Assessment: Sacral decubitous ulcer stage 1 -continue dressing change by nursing: wet/dry dressing. Optiform -turn q2 -Medical management -Glucose control -No surgical intervention at this time JC Elliott
[2016-06-10] MEDS: Piperacillin/Tazobact 3.375 gm 100 ML IVPB SCH ×2 (05:29→13:51)
[2016-06-10 07:18] LABS: ADD MANUAL DIFF? NO
[2016-06-10 07:23] LABS: BASO # 0.04 K/mm3 (0.0-2.0); BASO % 0.6 % (0.0-3.0); EOS # 0.5 (0.0-0.7); EOS % 6.7 % (1.5-5.0); GRAN # 3.56 (1.4-6.5); GRAN % 52.2 % (50.0-68.0); HEMATOCRIT 32.7 % (36.0-48.0); LYMPH # 1.9 (1.2-3.4); LYMPH % 27.5 % (22.0-35.0); MEAN CELL VOLUME 93.7 fL (80.0-105.0); MEAN CORPUSCULAR HEMOGLOBIN 29.8 pg (25.0-35.0); MEAN CORPUSCULAR HGB CONC 31.8 g/dl (31.0-37.0); MEAN PLATELET VOLUME 10.9 fl (7.0-11.0); MONO # 0.9 (0.1-0.6); PLATELET COUNT 213 10^3/uL (120.0-450.0); RED CELL DISTRIBUTION WIDTH 14.1 % (11.5-14.5); WHITE BLOOD COUNT 6.8 10^3/ul (4.5-11.0)
[2016-06-10] MEDS ORDERED: Insulin Human NPH/Reg 70/30 Vial(3 ml) SC SCH ×3 (07:30→16:30)
[2016-06-10 07:55] LABS: ALB/GLOB RATIO 0.9 (1.1-1.8); BILIRUBIN,TOTAL 0.9 mg/dL (0.2-1.3); CALCIUM 9.2 mg/dL (8.4-10.5); TOTAL PROTEIN 6.9 g/dL (5.8-8.3)
--- NOTE | 2016-06-10 08:07 | PN ---
DATE: 06/09/2016 The patient is 80 years old, seen and examined, lying in bed, seems to be comfortable. Did walk toda y and is very happy about it. Complaining about blood sugar being high. She is upset about her bloo d sugar being high. Otherwise, doing well. No fever. No chills. No nausea, vomiting. No diarrhea . PHYSICAL EXAMINATION: VITAL SIGNS: She is afebrile, pulse 80, respirations 18, blood pressure 102/51. LUNGS: Bilateral fair airflow. No rhonchi or crackle. HEART: S1, S2 audible. No murmur. ABDOMEN: Soft, obese, nontender. No rebound. No guarding. NEUROLOGIC: She is awake and alert, communicative. Moves all extremities. Right foot is in the jerri ssing. Her right KARO drain was removed. ASSESSMENT: 1. Status post right second toe amputation. 2. Insulin-dependent diabetes. 3. Healing right buttock ulcer. 4. Hypertension. 5. Morbid obesity. 6. Healing left heel ulcer. PLAN: I will request for Dr. Maliha Palmer to evaluate her for better control of her diabetes as her blo od sugar has been fluctuating. We will continue her on DVT prophylaxis. She is on her usual medicat ions. She is currently on Zyvox. I will order for CBC and CMP for a.m. We will request for Dr. Jake alex's evaluation for her buttock ulcer, and I will re-evaluate the patient in a.m. Liam Fernandez MD cc: [phone] TT: 06/10/2016 05:12:55 Confirmation # [id number] Dictation # [id number] tn
[2016-06-10 08:12] LABS: THYROID STIMULATING HORMONE 2.6 mIU/mL (0.46-4.68)
--- NOTE | 2016-06-10 08:20 | CON ---
DATE: 06/09/2016 ROOM: 371. HISTORY OF PRESENT ILLNESS: This is a 80-year-old female with known history of type 2 insulin-requir ing diabetes, presenting here with right foot osteomyelitis and is now being referred for diabetic ev aluation because of persistent hyperglycemic accelerations as noted thereof. PAST MEDICAL HISTORY: As mentioned above, history of type 2 insulin-requiring diabetes on a premixed insulin regimen at home using Humulin 70/30 given as 45 units in a.m. and 20 units in p.m. and curre ntly on a sliding scale coverage also in the hospital; history of hypertensive cardiovascular disease and dyslipidemia; history of hypothyroidism, currently on levothyroxine given at 75 mcg daily; histo ry of coronary artery disease and peripheral arterial disease and vasculopathy, and was previously ad mitted in 02/2016 and underwent a second toe amputation as noted. At this time, she also has osteomy elitis of the distal metatarsal and proximal phalanx of the right second toe and has been scheduled f or toe amputation with this admission. FAMILY HISTORY: Positive for hypertension and diabetes. SOCIAL HISTORY: The patient has a supportive family. No known substance use. REVIEW OF SYSTEMS: Admits to generalized body weakness with easy fatigability and tiredness and subo ptimal energy level. Also admits to episodic bouts of dizziness and lightheadedness, worse on the da y of admission. No chest pains or palpitations or PNDs. Her oral intake has been variable with naus ea, dyspepsia, and vague upper abdominal pains. Also admits to persistent nocturia. PHYSICAL EXAMINATION: GENERAL: This is an overweight female in no apparent distress. VITAL SIGNS: Blood pressure of 144/80, pulse of 74 beats per minute and regular, temperature 98, res pirations 20. Height is 5 feet 6 inches, weight is 235 pounds. HEENT: Head normocephalic. Eyes anicteric with pink conjunctivae. Fundoscopy not possible at this time. Ears, nose and throat otherwise normal. NECK: Supple. Thyroid gland is normal size. No carotid bruits or cervical adenopathy. CARDIOPULMONARY: Revealed an adynamic precordium. S1, S2 is rapid and regular. LUNGS: Show scattered rhonchi. ABDOMEN: Flat, soft with positive bowel sounds. EXTREMITIES: No peripheral edema. Pulses are diminished peripherally, and the right foot shows cell ulitis in the dorsum of the right foot and the previous right second toe amputation. In fact, at thi s time there is a dressing over the recent incisional site of the second digit amputation with metata rsal head resection as noted. LABORATORY DATA: The chemistry showed a BUN of 38, sodium 137, potassium 4.3, chloride 100, CO2 27, glucose 304 and creatinine 1.2. Her glucose levels have ranged from 176-309 and 333 mg/dL. ASSESSMENT: This is a 80-year-old female with uncontrolled and decompensated type 2 insulin-requirin g diabetes, presenting here with osteomyelitis of the right second toe and recently underwent a secon d toe amputation with metatarsal head resection as mentioned. She has diabetic microvascular complic ations of retinopathy and polyneuropathy with diabetic macrovascular complications of coronary artery disease and peripheral arterial disease and vasculopathy. PLAN OF MANAGEMENT: As discussed with the patient and the staff, will modify her current insulin reg imen and titrate and increase her premixed insulin regimen with Humulin 70/30 given as 50 units a.c. breakfast and 30 units a.c. dinner as ordered. Will modify the coverage scale to obviate hypoglycemi a, and detailed orders have been given. Will obtain serial chemistries and supplement accordingly as needed. Will also repeat the thyroid studies and adjust her levothyroxine dose accordingly. Hemogl obin A1c will be sent out to confirm her prior glycemic control, and serial chemistries will be obtai adarsh. Will follow and advise accordingly. Maliha Palmer MD cc: [phone] TT: 06/10/2016 08:19:37 Confirmation # [id number] Dictation # [id number]
[2016-06-10] MEDS: Insulin Reg-LOW-Coverage SC SCH ×3 (08:22→16:45)
[2016-06-10] MEDS: Pantoprazole 40 mg EC Tab PO SCH (08:26)
[2016-06-10] MEDS: Levothyroxine 75 MCG TAB PO SCH (08:27)
[2016-06-10] MEDS: Potassium Chloride 20 mEq ER Tab PO SCH (10:12)
[2016-06-10] MEDS: Enoxaparin 40 mg Syringe SC SCH (10:12)
[2016-06-10] MEDS: Nystatin 100,000 Units/gm Topical Pow(15 gm) TOP SCH (10:12)
[2016-06-10] MEDS: Metoprolol Succinate 25 mg XL Tab PO SCH (10:18)
[2016-06-10] MEDS: Cholecalciferol 400 Intl Units Tab PO SCH (10:18)
--- NOTE | 2016-06-10 11:01 | CP.PCM.PN ---
Subjective - Date & Time of Evaluation Date of Evaluation: 06/10/16 Time of Evaluation: 10:58 - Subjective Subjective: 80 y/o female seen at bedside 2 days s/p right 2nd digit amputation with metatarsal head resection. Patient was seen with attending Dr. Patterson. Patient denies any acute events overnight. Her dressing remains clean,dry,intact, multipodus boot intact to left foot. Patient denies any n/f/c/v/d/sob. Objective - Vital Signs/Intake and Output Vital Signs (last 24 hours): Temp Pulse Resp BP Pulse Ox 97.9 F 90 20 82/46 L 95 06/10/16 08:58 06/10/16 10:23 06/10/16 08:58 06/10/16 10:23 06/10/16 08:58 Intake and Output: 06/10/16 06/10/16 06:59 18:59 Intake Total 600 Output Total 500 Balance 100 - Medications Medications: Current Medications Acetaminophen (Tylenol 325mg Tab) 650 mg PO Q4 PRN PRN Reason: Pain, Mild (1-3) Last Admin: 06/09/16 21:50 Dose: 650 mg Aspirin (Aspirin Chewable) 81 mg PO DAILY [facility] Last Admin: 06/10/16 10:12 Dose: 81 mg Atorvastatin Calcium (Lipitor) 20 mg PO HS [facility] Last Admin: 06/09/16 21:01 Dose: 20 mg Calcium Carbonate (Caltrate) 600 mg PO BID [facility] Last Admin: 06/10/16 10:15 Dose: 600 mg Collagenase (Santyl) 0 gm TOP DAILY [facility] Docusate Sodium (Colace) 200 mg PO DAILY [facility] Last Admin: 06/10/16 10:14 Dose: Not Given Enoxaparin Sodium (Lovenox) 40 mg SC DAILY [facility] PRN Reason: Protocol Last Admin: 06/10/16 10:12 Dose: 40 mg Furosemide (Lasix) 20 mg PO DAILY [facility] Last Admin: 06/10/16 10:16 Dose: 20 mg Piperacillin Sod/Tazobactam Sod (Zosyn 3.375 In Ns 100ml) 100 mls @ 200 mls/hr IVPB Q8 [facility] PRN Reason: Protocol Stop: 06/14/16 14:01 Last Admin: 06/10/16 05:29 Dose: 200 mls/hr Insulin Human Regular (Humulin R Low) 0 units SC ACHS [facility] PRN Reason: Protocol Last Admin: 06/10/16 08:22 Dose: Not Given Levothyroxine Sodium (Synthroid) 75 mcg PO 0800 [facility] Last Admin: 06/10/16 08:27 Dose: 75 mcg Linezolid (Zyvox) 600 mg PO BID [facility] PRN Reason: Protocol Last Admin: 06/10/16 10:12 Dose: 600 mg Losartan Potassium (Cozaar) 25 mg PO DAILY [facility] Last Admin: 06/10/16 10:23 Dose: Not Given Metoprolol Succinate (Toprol Xl) 25 mg PO DAILY [facility] Last Admin: 06/10/16 10:18 Dose: Not Given Nystatin (Nystop Topical Powder) 0 gm TOP BID [facility] Last Admin: 06/10/16 10:12 Dose: 1 unit Oxycodone/Acetaminophen (Percocet 5/325 Mg Tab) 1 tab PO Q4H PRN PRN Reason: Pain, moderate (4-7) Stop: 06/11/16 09:30 Oxycodone/Acetaminophen (Percocet 5/325 Mg Tab) 2 tab PO Q4H PRN PRN Reason: Pain, severe (8-10) Stop: 06/11/16 09:30 Last Admin: 06/09/16 00:30 Dose: 2 tab Pantoprazole Sodium (Protonix Ec Tab) 40 mg PO 0730 [facility] Last Admin: 06/10/16 08:26 Dose: 40 mg Potassium Chloride (K-Dur 20 Meq Er Tab) 20 meq PO DAILY [facility] Last Admin: 06/10/16 10:12 Dose: 20 meq Quetiapine Fumarate (Seroquel) 50 mg PO HS [facility] PRN Reason: Protocol Last Admin: 06/09/16 21:46 Dose: 50 mg Vitamin D (Vitamin D 400 Intl Units Tab) 400 intlu PO DAILY [facility] Last Admin: 06/10/16 10:18 Dose: 400 intlu - Labs Labs: 06/10/16 07:00 06/10/16 07:00 - Constitutional Appears: Well, Non-toxic, No Acute Distress - Extremities Exam Additional comments: dressing to right foot remains c/d/i. Vasc: palpable DP and PT pulses, CFT < 3 sec to all digits, TG wnl, nonpitting edema to right foot noted neuro: grossly diminished derm: nonpitting edema, no erythema, sutures intact, surgical incision site well coapted,no dehiscence, no drainage, no purulence, no active bleeding, KARO drain intact left heel- superficial ulceration with fibrotic base and hyperkeratotic border measuring 2cm x 2cm x 0.2 cm, mild serous drainage, no purulence, no acute clinical signs of infection ortho: no pain on palpation to surgical site - Neurological Exam Neurological Exam: Alert, Awake, Oriented x3 - Psychiatric Exam Psychiatric exam: Normal Affect, Normal Mood Assessment and Plan - Assessment and Plan (Free Text) Assessment: 80 y/o female seen at bedside 2 days s/p right 2nd digit amputation with metatarsal head resection , 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 Patterson labs and vitals reviewed, afebrile continue IV abx as per ID dressing to right foot remains c/d/i. left intact cleansed left foot with saline, gauze, optifoam Rx santyl for left foot continue wearing multipodus boot while in bed podiatry will continue to monitor while patient remains in house
--- NOTE | 2016-06-10 13:40 | PN ---
DATE: 06/10/2016 SUBJECTIVE: The patient is a 80-year-old, seen and examined, doing well. Blood sugar seems to be be tter. Complained of pain in the right foot. No nausea, vomiting or diarrhea. PHYSICAL EXAMINATION: VITAL SIGNS: She is afebrile, pulse 80, respirations 20, blood pressure 120/70. LUNGS: Bilateral good airflow, no rhonchi or crackle. HEART: S1, S2 audible. No murmur. ABDOMEN: Soft, obese, nontender, no rebound, no guarding. NEUROLOGIC: The patient is awake and alert, communicative. LABORATORY EXAMINATION: WBC 6.8, hemoglobin 10.4, hematocrit 32.7, platelets of 213. Chemistry: So dium 138, potassium 4.0, chloride 100, CO2 30, BUN 37, creatinine 1.4, blood sugar of 90, AST 144, AL T 94. Alk phos 245. ASSESSMENT: 1. Status post right second toe osteomyelitis, status post amputation. 2. Hypertension. 3. Insulin-dependent diabetes. 4. Hyperlipidemia. 5. Deconditioning and difficulty walking. 6. Insomnia. PLAN: We will continue patient on current medication. I will discontinue Seroquel. We try her on A tivan for sleep because patient does not want to take Ambien and Seroquel. Her blood sugar is being closely monitored. Dr. Bentley's input noted and appreciated. Liam Fernandez MD cc: [phone] TT: 06/10/2016 13:40:15 Confirmation # [id number] Dictation # [id number] tn
--- NOTE | 2016-06-10 16:17 | PN ---
DATE: 06/10/2016 ROOM: 371 This is a 80-year-old female with recent uncontrolled type 2 insulin-requiring diabetes, presenting h ere with an osteomyelitis of the right second toe and underwent an amputation of the second toe with metatarsal resection thereof and is now being followed closely for metabolic management. Her glycemi c levels are fluctuating, but much improved at this time and today's glucose levels have ranged from 85-196 mg/dL. It was 108 at bedtime last night. The latest chemistry showed a BUN of 37, sodium 138 , potassium 4.0, chloride 100, CO2 of 30, glucose 90 and creatinine 1.4. She has elevated liver [place] saminases as noted thereof. So, for now, we will actually adjust and modify her basal and bolus insulin regimen and lower the Hum ulin 70/30 to 44 units before meals breakfast and 24 units before meals dinner to start today. We wi ll titrate incrementally as indicated to optimize metabolic control. We will continue the low-dose c orrection scale using regular insulin as ordered. We will obtain serial chemistries and supplement a ccordingly as needed. We will follow. Maliha Palmer MD cc: [phone] TT: 06/10/2016 16:16:34 Confirmation # [id number] Dictation # [id number]
--- NOTE | 2016-06-10 16:18 | CP.PCM.PN ---
Subjective - Date & Time of Evaluation Date of Evaluation: 06/10/16 Time of Evaluation: 10:15 - Subjective Subjective: Comfortable in bed, not in distress, no fevers. Objective - Vital Signs/Intake and Output Vital Signs (last 24 hours): Temp Pulse Resp BP Pulse Ox 97.9 F 80 20 120/70 95 06/10/16 08:58 06/10/16 11:00 06/10/16 08:58 06/10/16 11:00 06/10/16 08:58 Intake and Output: 06/10/16 06/10/16 06:59 18:59 Intake Total 600 600 Output Total 500 400 Balance 100 200 - Medications Medications: Current Medications Acetaminophen (Tylenol 325mg Tab) 650 mg PO Q4 PRN PRN Reason: Pain, Mild (1-3) Last Admin: 06/09/16 21:50 Dose: 650 mg Aspirin (Aspirin Chewable) 81 mg PO DAILY [facility] Last Admin: 06/10/16 10:12 Dose: 81 mg Atorvastatin Calcium (Lipitor) 20 mg PO HS [facility] Last Admin: 06/09/16 21:01 Dose: 20 mg Calcium Carbonate (Caltrate) 600 mg PO BID [facility] Last Admin: 06/10/16 10:15 Dose: 600 mg Collagenase (Santyl) 0 gm TOP DAILY [facility] Docusate Sodium (Colace) 200 mg PO DAILY [facility] Last Admin: 06/10/16 10:14 Dose: Not Given Enoxaparin Sodium (Lovenox) 40 mg SC DAILY [facility] PRN Reason: Protocol Last Admin: 06/10/16 10:12 Dose: 40 mg Furosemide (Lasix) 20 mg PO DAILY [facility] Last Admin: 06/10/16 10:16 Dose: 20 mg Piperacillin Sod/Tazobactam Sod (Zosyn 3.375 In Ns 100ml) 100 mls @ 200 mls/hr IVPB Q8 [facility] PRN Reason: Protocol Stop: 06/14/16 14:01 Last Admin: 06/10/16 13:51 Dose: 200 mls/hr Insulin Human Regular (Humulin R Low) 0 units SC ACHS [facility] PRN Reason: Protocol Last Admin: 06/10/16 11:39 Dose: Not Given Levothyroxine Sodium (Synthroid) 75 mcg PO 0800 [facility] Last Admin: 06/10/16 08:27 Dose: 75 mcg Linezolid (Zyvox) 600 mg PO BID [facility] PRN Reason: Protocol Last Admin: 06/10/16 10:12 Dose: 600 mg Lorazepam (Ativan) 2 mg PO HS [facility] PRN Reason: Protocol Losartan Potassium (Cozaar) 25 mg PO DAILY [facility] Last Admin: 06/10/16 10:23 Dose: Not Given Metoprolol Succinate (Toprol Xl) 25 mg PO DAILY [facility] Last Admin: 06/10/16 10:18 Dose: Not Given Nystatin (Nystop Topical Powder) 0 gm TOP BID [facility] Last Admin: 06/10/16 10:12 Dose: 1 unit Oxycodone/Acetaminophen (Percocet 5/325 Mg Tab) 1 tab PO Q4H PRN PRN Reason: Pain, moderate (4-7) Stop: 06/11/16 09:30 Oxycodone/Acetaminophen (Percocet 5/325 Mg Tab) 2 tab PO Q4H PRN PRN Reason: Pain, severe (8-10) Stop: 06/11/16 09:30 Last Admin: 06/09/16 00:30 Dose: 2 tab Pantoprazole Sodium (Protonix Ec Tab) 40 mg PO 0730 [facility] Last Admin: 06/10/16 08:26 Dose: 40 mg Potassium Chloride (K-Dur 20 Meq Er Tab) 20 meq PO DAILY [facility] Last Admin: 06/10/16 10:12 Dose: 20 meq Vitamin D (Vitamin D 400 Intl Units Tab) 400 intlu PO DAILY [facility] Last Admin: 06/10/16 10:18 Dose: 400 intlu - Labs Labs: 06/10/16 07:00 06/10/16 07:00 - Constitutional Appears: Non-toxic, No Acute Distress - Head Exam Head Exam: NORMAL INSPECTION - Neck Exam Neck Exam: absent: Lymphadenopathy, Meningismus - Respiratory Exam Respiratory Exam: Decreased Breath Sounds - Cardiovascular Exam Cardiovascular Exam: +S1, +S2 - GI/Abdominal Exam GI & Abdominal Exam: Soft. absent: Tenderness Assessment and Plan - Assessment and Plan (Free Text) Plan: Assessment 2nd right toe and metatarsal head osteomyelitis S/P surgery POD #2 chronic renal failure obesity with BMI 38 osteoarthritis HTN DM hypothyroidism S/P left toe amputation S/P right hip surgery Plan Started patient on Zyvox and Zosyn pending blood cx, OR cx and pathology Will continue to follow clinically
[2016-06-10 18:16] VITALS: BP 90/64; PULSE 84; RESP 18; TEMP 98.8; O2SAT 98
[2016-06-11] MEDS ORDERED: Insulin Human NPH/Reg 70/30 Vial(3 ml) SC SCH (07:30)
[2016-06-11] MEDS ORDERED: Collagenase 250 Units/gm Ointment(30 gm) TOP SCH (10:00)
== END 2016-06-10 19:48 | DRG 617 ==
LOC: ED 09:10 → ERH 12:47 → 3RSO 13:56
PROVIDERS: ADMIT Internal Medicine; ATTEND Internal Medicine
PROC: 0Y6R0Z0 Detachment at Right 2nd Toe, Complete, Open Approach (ICD-10-PCS; principal; 2016-06-08 07:30)
DX: E11.69 Type 2 diabetes mellitus with other specified complication (principal); M86.8X7 Other osteomyelitis, ankle and foot; E11.65 Type 2 diabetes mellitus with hyperglycemia; E11.22 Type 2 diabetes mellitus with diabetic chronic kidney disease; I13.10 Hypertensive heart and chronic kidney disease without heart failure, with stage 1 through stage 4 chronic kidney disease, or unspecified chronic kidney disease; E11.621 Type 2 diabetes mellitus with foot ulcer; L97.429 Non-pressure chronic ulcer of left heel and midfoot with unspecified severity; E11.51 Type 2 diabetes mellitus with diabetic peripheral angiopathy without gangrene; E78.5 Hyperlipidemia, unspecified; R26.2 Difficulty in walking, not elsewhere classified; E03.9 Hypothyroidism, unspecified; I25.10 Atherosclerotic heart disease of native coronary artery without angina pectoris; N18.9 Chronic kidney disease, unspecified; G47.00 Insomnia, unspecified; M19.90 Unspecified osteoarthritis, unspecified site; E11.319 Type 2 diabetes mellitus with unspecified diabetic retinopathy without macular edema; E11.42 Type 2 diabetes mellitus with diabetic polyneuropathy; E66.01 Morbid (severe) obesity due to excess calories; Z68.38 Body mass index [BMI] 38.0-38.9, adult; Z79.4 Long term (current) use of insulin; Z83.3 Family history of diabetes mellitus; Z82.49 Family history of ischemic heart disease and other diseases of the circulatory system

== ENCOUNTER 2016-06-10 19:44 | Inpatient (IN) | payer OTHER ==
[2016-06-10] MEDS ORDERED: Oxycodone/Acetaminophen 5/325 mg Tab PO PRN ×2 (20:18→20:19)
[2016-06-10] MEDS: Insulin Reg-LOW-Coverage SC SCH (21:48)
[2016-06-10] MEDS ORDERED: Piperacillin/Tazobact 3.375 gm 100 ML IVPB SCH (22:00)
[2016-06-11] MEDS: Piperacillin/Tazobact 3.375 gm 100 ML IVPB SCH ×3 (05:30→21:48)
[2016-06-11] MEDS: Enoxaparin 40 mg Syringe SC SCH (05:31)
[2016-06-11] MEDS: Levothyroxine 75 MCG TAB PO SCH (05:32)
[2016-06-11] MEDS: Pantoprazole 40 mg EC Tab PO SCH (05:32)
[2016-06-11] MEDS: Insulin Reg-LOW-Coverage SC SCH ×4 (06:47→21:47)
[2016-06-11] MEDS: Insulin Human NPH/Reg 70/30 Vial(3 ml) SC SCH (07:30)
[2016-06-11] MEDS: Metoprolol Succinate 25 mg XL Tab PO SCH (07:45)
[2016-06-11] MEDS ORDERED: Metoprolol Succinate 50 mg XL Tab PO SCH (10:00)
[2016-06-11] MEDS: Potassium Chloride 20 mEq ER Tab PO SCH (10:07)
[2016-06-11] MEDS: Collagenase 250 Units/gm Ointment(30 gm) TOP SCH (10:11)
[2016-06-11] MEDS: Nystatin 100,000 Units/gm Topical Pow(15 gm) TOP SCH ×2 (10:11→17:46)
[2016-06-11] MEDS: Cholecalciferol 400 Intl Units Tab PO SCH (10:12)
--- NOTE | 2016-06-11 13:14 | HP ---
HISTORY OF PRESENT ILLNESS: The patient is a 80-year-old who initially came after she was seen by Dr Evelyn Patterson and found to have second toe osteomyelitis after she had MRI done as outpatient, so she was referred for amputation. The patient underwent right second toe amputation on 06/09, transferred to TCU for wound care, rehabilitation, close monitoring of blood sugar. PAST MEDICAL HISTORY: Significant for: 1. Insulin-dependent diabetes. 2. Hypertension. 3. Hyperlipidemia. 4. Morbid obesity. 5. Status post fall, left trochanteric fracture and she received rehabilitation, able to walk with a walker now. ALLERGIES: She is not allergic to any medications. MEDICATIONS AT HOME: She was on Levaquin, but has discontinued. She was on Seroquel 25 at bedtime. She was on Protonix, multivitamin, metoprolol, losartan, levothyroxine, insulin, she is on Lipitor. SOCIAL HISTORY: She is single, lives with her daughter who is very caring. REVIEW OF SYSTEMS: Significant for some right foot discomfort and difficulty walking. PHYSICAL EXAMINATION: GENERAL: She is awake and alert, communicative. VITAL SIGNS: She is afebrile, pulse 87, respirations 20, blood pressure 102/47. LUNGS: Bilateral good airflow, no rhonchi or crackle. HEART: S1, S2 audible. No murmur. ABDOMEN: Soft, nontender, no rebound, no guarding. NEUROLOGIC: The patient is awake and alert. EXTREMITIES: Bilateral legs good airflow. Right foot is in dressing. Left foot is also in dressing because of her healing wound ulcer. ASSESSMENT: 1. Status post right second toe amputation because of osteomyelitis. 2. Hypertension. 3. Hyperlipidemia. PLAN: I will cut down her losartan from 25 to 12.5 in the morning. Hold her Lasix for today since h er blood pressure is running low. She is on metoprolol 25. Will continue on metoprolol. Hold if e blood pressure is below 100. Continue wound care. Monitor blood sugar. and is followin g the patient. Liam Fernandez MD cc: [phone] TT: 06/11/2016 13:14:03 [email or web address]
--- NOTE | 2016-06-11 13:18 | CP.PCM.PN ---
<Heydi Taylor - Last Filed: 06/11/16 13:16> Subjective - Date & Time of Evaluation Date of Evaluation: 06/11/16 Time of Evaluation: 13:16 - Subjective Subjective: 80 y/o female seen at bedside 3 days s/p right 2nd digit amputation with metatarsal head resection.\. Patient denies any acute events overnight. Her dressing remains clean,dry,intact, multipodus boot intact to left foot. Patient denies any n/f/c/v/d/sob. Objective - Vital Signs/Intake and Output Vital Signs (last 24 hours): Temp Pulse Resp BP Pulse Ox 98 F 87 20 107/47 L 87 L 06/11/16 10:00 06/11/16 10:05 06/11/16 10:00 06/11/16 11:31 06/11/16 10:00 Intake and Output: 06/11/16 06/11/16 06:59 18:59 Intake Total 120 Output Total 250 Balance -130 - Medications Medications: Current Medications Acetaminophen (Tylenol 325mg Tab) 650 mg PO Q4 PRN PRN Reason: Pain, Mild (1-3) Last Admin: 06/10/16 21:45 Dose: 650 mg Atorvastatin Calcium (Lipitor) 20 mg PO HS [facility] Last Admin: 06/10/16 21:45 Dose: 20 mg Calcium Carbonate (Caltrate) 600 mg PO BID [facility] Last Admin: 06/11/16 10:04 Dose: 600 mg Collagenase (Santyl) 1 gm TOP DAILY [facility] Last Admin: 06/11/16 10:11 Dose: Not Given Docusate Sodium (Colace) 200 mg PO DAILY [facility] Last Admin: 06/11/16 10:05 Dose: Not Given Enoxaparin Sodium (Lovenox) 40 mg SC 0630 [facility] PRN Reason: Protocol Last Admin: 06/11/16 05:31 Dose: 40 mg Furosemide (Lasix) 20 mg PO DAILY [facility] Last Admin: 06/11/16 11:31 Dose: Not Given Piperacillin Sod/Tazobactam Sod (Zosyn 3.375 In Ns 100ml) 100 mls @ 200 mls/hr IVPB Q8 [facility] PRN Reason: Protocol Stop: 06/17/16 22:01 Last Admin: 06/11/16 05:30 Dose: 200 mls/hr Insulin Human Regular (Humulin R Low) 0 units SC ACHS [facility] PRN Reason: Protocol Last Admin: 06/11/16 12:14 Dose: 1 units Levothyroxine Sodium (Synthroid) 75 mcg PO 0630 [facility] Last Admin: 06/11/16 05:32 Dose: 75 mcg Linezolid (Zyvox) 600 mg PO BID [facility] PRN Reason: Protocol Last Admin: 06/11/16 10:12 Dose: 600 mg Lorazepam (Ativan) 2 mg PO HS [facility] PRN Reason: Protocol Last Admin: 06/10/16 23:04 Dose: 2 mg Losartan Potassium (Cozaar) 12.5 mg PO DAILY [facility] Metoprolol Succinate (Toprol Xl) 25 mg PO BRK [facility] Last Admin: 06/11/16 07:45 Dose: Not Given Nystatin (Nystop Topical Powder) 1 gm TOP BID [facility] Last Admin: 06/11/16 10:11 Dose: 1 applic Oxycodone/Acetaminophen (Percocet 5/325 Mg Tab) 2 tab PO Q4H PRN PRN Reason: severe pain ( 8-10) Stop: 06/13/16 20:19 Oxycodone/Acetaminophen (Percocet 5/325 Mg Tab) 1 tab PO Q4H PRN PRN Reason: moderate pain ( 4-10) Stop: 06/13/16 20:20 Pantoprazole Sodium (Protonix Ec Tab) 40 mg PO 629 [facility] Last Admin: 06/11/16 05:32 Dose: 40 mg Potassium Chloride (K-Dur 20 Meq Er Tab) 20 meq PO DAILY [facility] Last Admin: 06/11/16 10:07 Dose: 20 meq Vitamin D (Vitamin D 400 Intl Units Tab) 400 intlu PO DAILY [facility] Last Admin: 06/11/16 10:12 Dose: 400 intlu - Constitutional Appears: Well, Non-toxic, No Acute Distress - Extremities Exam Additional comments: Vasc: palpable DP and PT pulses, CFT < 3 sec to all digits, TG wnl, nonpitting edema to right foot noted neuro: grossly diminished derm: nonpitting edema, no erythema, sutures intact, surgical incision site well coapted,no dehiscence, no drainage, no purulence, no active bleeding left heel- superficial ulceration with fibrotic base and hyperkeratotic border measuring 2cm x 2cm x 0.2 cm, mild serous drainage, no purulence, no acute clinical signs of infection ortho: no pain on palpation to surgical site - Neurological Exam Neurological Exam: Alert, Awake, Oriented x3 - Psychiatric Exam Psychiatric exam: Normal Affect, Normal Mood Assessment and Plan - Assessment and Plan (Free Text) Assessment: 80 y/o female seen at bedside 3 days s/p right 2nd digit amputation with metatarsal head resection , 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 Owusu labs and vitals reviewed, afebrile continue IV abx as per ID cleansed wounds with saline applied xeroform DSD, kerlix to R foot applied santyl optifoam to L heel continue wearing multipodus boot while in bed podiatry will continue to monitor while patient remains in house <Robby Owusu - Last Filed: 06/12/16 07:26> Objective - Vital Signs/Intake and Output Vital Signs (last 24 hours): Temp Pulse Resp BP Pulse Ox 97.9 F 101 H 18 139/70 96 06/11/16 16:00 06/11/16 16:00 06/11/16 16:00 06/11/16 16:00 06/11/16 16:00 Intake and Output: 06/12/16 06/12/16 06:59 18:59 Intake Total 680 Output Total 600 Balance 80 - Medications Medications: Current Medications Acetaminophen (Tylenol 325mg Tab) 650 mg PO Q4 PRN PRN Reason: Pain, Mild (1-3) Last Admin: 06/11/16 21:50 Dose: 650 mg Atorvastatin Calcium (Lipitor) 20 mg PO HS [facility] Last Admin: 06/11/16 21:48 Dose: 20 mg Calcium Carbonate (Caltrate) 600 mg PO BID [facility] Last Admin: 06/11/16 17:46 Dose: 600 mg Collagenase (Santyl) 1 gm TOP DAILY [facility] Last Admin: 06/11/16 10:11 Dose: Not Given Docusate Sodium (Colace) 200 mg PO DAILY [facility] Last Admin: 06/11/16 10:05 Dose: Not Given Enoxaparin Sodium (Lovenox) 40 mg SC 0630 [facility] PRN Reason: Protocol Last Admin: 06/12/16 05:48 Dose: 40 mg Furosemide (Lasix) 20 mg PO DAILY [facility] Last Admin: 06/11/16 11:31 Dose: Not Given Piperacillin Sod/Tazobactam Sod (Zosyn 3.375 In Ns 100ml) 100 mls @ 200 mls/hr IVPB Q8 [facility] PRN Reason: Protocol Stop: 06/17/16 22:01 Last Admin: 06/12/16 05:47 Dose: 200 mls/hr Insulin Human Regular (Humulin R Low) 0 units SC ACHS [facility] PRN Reason: Protocol Last Admin: 06/12/16 06:55 Dose: 2 units Levothyroxine Sodium (Synthroid) 75 mcg PO 0630 [facility] Last Admin: 06/12/16 05:47 Dose: 75 mcg Linezolid (Zyvox) 600 mg PO BID [facility] PRN Reason: Protocol Last Admin: 06/11/16 17:46 Dose: 600 mg Lorazepam (Ativan) 2 mg PO HS [facility] PRN Reason: Protocol Last Admin: 06/11/16 23:30 Dose: 2 mg Losartan Potassium (Cozaar) 12.5 mg PO DAILY [facility] Metoprolol Succinate (Toprol Xl) 25 mg PO BRK [facility] Last Admin: 06/11/16 07:45 Dose: Not Given Nystatin (Nystop Topical Powder) 1 gm TOP BID [facility] Last Admin: 06/11/16 17:46 Dose: 1 applic Oxycodone/Acetaminophen (Percocet 5/325 Mg Tab) 2 tab PO Q4H PRN PRN Reason: severe pain ( 8-10) Stop: 06/13/16 20:19 Oxycodone/Acetaminophen (Percocet 5/325 Mg Tab) 1 tab PO Q4H PRN PRN Reason: moderate pain ( 4-10) Stop: 06/13/16 20:20 Pantoprazole Sodium (Protonix Ec Tab) 40 mg PO 0630 [facility] Last Admin: 06/12/16 05:47 Dose: 40 mg Potassium Chloride (K-Dur 20 Meq Er Tab) 20 meq PO DAILY [facility] Last Admin: 06/11/16 10:07 Dose: 20 meq Vitamin D (Vitamin D 400 Intl Units Tab) 400 intlu PO DAILY [facility] Last Admin: 06/11/16 10:12 Dose: 400 intlu Attending/Attestation - Attestation I have personally seen and examined this patient.: Yes I have fully participated in the care of the patient.: Yes I have reviewed all pertinent clinical information, including history, physical exam and plan: Yes
[2016-06-11] MEDS ORDERED: Insulin Human NPH/Reg 70/30 Vial(3 ml) SC SCH (16:30)
[2016-06-11 16:33] VITALS: RESP 18
--- NOTE | 2016-06-11 17:04 | CP.PCM.CON ---
History of Present Illness - History of Present Illness History of Present Illness: 80 year old female with PMH of obesity with BMI 36, osteoarthritis, HTN, DM, hypothyroidism, S/P left toe amputation, S/P right hip surgery was initially admitted in [facility] because of infection of the 2nd right toe. It was amputated and she is now transferred to [facility] for continued medical therapy and physical rehabilitation. Infectious Diseases consult is requested to continue her antibiotic therapy. Currently the patient denies ever or chills , no nausea or vomiting, no diarrhea, no dysuria, no chest pain, no SOB, no headache or dizziness, no sore throat, no dysphagia. Her right foot is not hurting currently. Social history: no smoking, no alcohol abuse, no illicit drug use Review of Systems - Review of Systems All systems: reviewed and no additional remarkable complaints except (as per HPI ) Past Patient History - Infectious Disease Hx of Infectious Diseases: None - Tetanus Immunizations Tetanus Immunization: Unknown - Past Medical History & Family History Past Medical History?: Yes Past Family History: Reviewed and not pertinent - Past Social History Smoking Status: Never Smoked Alcohol: None Drugs: Denies - CARDIAC Hx Cardiac Disorders: Yes Hx Hypertension: Yes - PULMONARY Hx Respiratory Disorders: No - NEUROLOGICAL Hx Neurological Disorder: No - HEENT Hx HEENT Problems: No - RENAL Hx Chronic Kidney Disease: No - ENDOCRINE/METABOLIC Hx Diabetes Mellitus Type 2: Yes Hx Hypothyroidism: Yes - HEMATOLOGICAL/ONCOLOGICAL Hx Blood Disorders: No - INTEGUMENTARY Hx Dermatological Problems: No - MUSCULOSKELETAL/RHEUMATOLOGICAL Hx Arthritis: Yes - GASTROINTESTINAL Hx Gastrointestinal Disorders: No - GENITOURINARY/GYNECOLOGICAL Hx Genitourinary Disorders: No - PSYCHIATRIC Hx Psychophysiologic Disorder: Yes Hx Depression: Yes - SURGICAL HISTORY Hx Amputation: Yes (LEFT GREAT TOE, RIGHT 2ND TOE) Hx Musculoskeletal Surgery: Yes - ANESTHESIA Hx Anesthesia: Yes Hx Anesthesia Reactions: (not known) Hx Malignant Hyperthermia: No Meds Allergies/Adverse Reactions: Allergies Allergy/AdvReac Type Severity Reaction Status Date / Time No Known Allergies Allergy Verified 06/10/16 20:02 - Medications Medications: Current Medications Acetaminophen (Tylenol 325mg Tab) 650 mg PO Q4 PRN PRN Reason: Pain, Mild (1-3) Last Admin: 06/10/16 21:45 Dose: 650 mg Atorvastatin Calcium (Lipitor) 20 mg PO HS [facility] Last Admin: 06/10/16 21:45 Dose: 20 mg Calcium Carbonate (Caltrate) 600 mg PO BID [facility] Collagenase (Santyl) 1 gm TOP DAILY [facility] Docusate Sodium (Colace) 200 mg PO DAILY [facility] Enoxaparin Sodium (Lovenox) 40 mg SC 0630 [facility] PRN Reason: Protocol Furosemide (Lasix) 20 mg PO DAILY [facility] Piperacillin Sod/Tazobactam Sod (Zosyn 3.375 In Ns 100ml) 100 mls @ 200 mls/hr IVPB Q8 [facility] PRN Reason: Protocol Stop: 06/17/16 22:01 Insulin Human Regular (Humulin R Low) 0 units SC ACHS [facility] PRN Reason: Protocol Last Admin: 06/10/16 21:48 Dose: Not Given Levothyroxine Sodium (Synthroid) 75 mcg PO 0630 [facility] Linezolid (Zyvox) 600 mg PO BID [facility] PRN Reason: Protocol Lorazepam (Ativan) 2 mg PO HS [facility] PRN Reason: Protocol Losartan Potassium (Cozaar) 25 mg PO DAILY [facility] Metoprolol Succinate (Toprol Xl) 25 mg PO BRK [facility] Nystatin (Nystop Topical Powder) 1 gm TOP BID [facility] Oxycodone/Acetaminophen (Percocet 5/325 Mg Tab) 2 tab PO Q4H PRN PRN Reason: severe pain ( 8-10) Stop: 06/13/16 20:19 Oxycodone/Acetaminophen (Percocet 5/325 Mg Tab) 1 tab PO Q4H PRN PRN Reason: moderate pain ( 4-10) Stop: 06/13/16 20:20 Pantoprazole Sodium (Protonix Ec Tab) 40 mg PO 0630 [facility] Potassium Chloride (K-Dur 20 Meq Er Tab) 20 meq PO DAILY [facility] Vitamin D (Vitamin D 400 Intl Units Tab) 400 intlu PO DAILY [facility] Physical Exam - Constitutional Appears: Non-toxic, No Acute Distress - Head Exam Head Exam: NORMAL INSPECTION - ENT Exam ENT Exam: Mucous Membranes Moist - Neck Exam Neck exam: Negative for: Lymphadenopathy, Meningismus - Respiratory Exam Respiratory Exam: Decreased Breath Sounds - Cardiovascular Exam Cardiovascular Exam: +S1, +S2 - GI/Abdominal Exam GI & Abdominal Exam: Soft. absent: Tenderness - Extremities Exam Additional comments: right foot with dry dressings in place Assessment & Plan - Assessment and Plan (Free Text) Plan: Assessment 2nd right toe and metatarsal head osteomyelitis S/P surgery POD #3 chronic renal failure obesity with BMI 38 osteoarthritis HTN DM hypothyroidism S/P left toe amputation S/P right hip surgery Plan continue Zyvox and Zosyn pending OR cx and pathology Will continue to follow clinically
[2016-06-12] MEDS: Piperacillin/Tazobact 3.375 gm 100 ML IVPB SCH ×3 (05:47→22:27)
[2016-06-12] MEDS: Levothyroxine 75 MCG TAB PO SCH (05:47)
[2016-06-12] MEDS: Pantoprazole 40 mg EC Tab PO SCH (05:47)
[2016-06-12] MEDS: Enoxaparin 40 mg Syringe SC SCH (05:48)
[2016-06-12] MEDS: Insulin Human NPH/Reg 70/30 Vial(3 ml) SC SCH (06:54)
[2016-06-12] MEDS: Insulin Reg-LOW-Coverage SC SCH ×4 (06:55→22:26)
[2016-06-12] MEDS: Metoprolol Succinate 25 mg XL Tab PO SCH (07:47)
--- NOTE | 2016-06-12 11:07 | PN ---
DATE: 06/12/2016 ROOM: 320. SUBJECTIVE: This is a 80-year-old female with recent uncontrolled type 2 insulin-requiring diabetes now being followed closely for metabolic management. She underwent a recent second toe amputation in the right foot for osteomyelitis with concomitant resection of the metatarsal head in the same area and is now being followed closely for metabolic management. She was actually placed on the premixed insulin regimen in the acute medical floor with a low dose correction scale as ordered. Her glycemic levels are fluctuating, but improved as noted today and the latest glucose values as reviewed today showed glucose levels ranging from 202 to 240 and 247 mg/dL. Her latest chemistries are actually pen ding and there were none done for this admission here as noted. So at this time, we will actually mo dify her premixed insulin regimen and increase the Humulin 70/30 to 48 units a.c. breakfast and 28 un its a.c. dinner to start today. We will modify the correction scale using regular insulin at a very low dose algorithm and detailed orders have been given. We will repeat the chemistries and CBC and a lso the thyroid function studies and adjust her dose regimen accordingly. We will follow. Maliha Palmer MD cc: [phone] TT: 06/12/2016 11:06:41 Confirmation # [id number] Dictation # [id number] tn
[2016-06-12] MEDS: Potassium Chloride 20 mEq ER Tab PO SCH (11:13)
[2016-06-12] MEDS: Nystatin 100,000 Units/gm Topical Pow(15 gm) TOP SCH ×2 (11:14→17:18)
[2016-06-12] MEDS: Cholecalciferol 400 Intl Units Tab PO SCH (11:15)
[2016-06-12] MEDS: Collagenase 250 Units/gm Ointment(30 gm) TOP SCH (11:16)
--- NOTE | 2016-06-12 12:50 | PN ---
DATE: 06/12/2016 A 80-year-old female seen at bedside, status post second metatarsal head resection and second digit amputation on the right foot. She denies experiencing any fever, chills, nausea or vomiting and offers no complaints. There are noted to be foam Multi-Podus boots in place at bedside. VITAL SIGNS: Reveal a temperature of 97.9, pulse rate of 83, blood pressure of 124/71, respiratory rate of 18. LABORATORY FINDINGS: Reveal a blood glucose of 202. Most recent white cell count was 6.8, hemoglobin was 10.4, hematocrit was 32.7, platelet count was 213. OBJECTIVE: Surgical site on the right foot presents with amputated right second digit. All sutures are well coapted with no signs of dehiscence, drainage or abscess formation. Left heel presents with a full thickness ulceration that is primarily fibrotic. There is noted to be serous drainage, no purulence. The wound does not probe to tendon or bone. ASSESSMENT: Status post right second digit amputation and second metatarsal head resection, full thickness diabetic left heel ulceration. PLAN: The patient's left heel was examined, cleansed with normal sterile saline and application of Santyl, Xeroform and a dry sterile dressing was applied. The patient's surgical site was redressed with non-stick Adaptic sterile and a dry sterile dressing. The patient's left heel ulcer will be changed tomorrow. We will keep the right surgical dressing on and intact until Tuesday. Robby Owusu DPM cc: [phone] TT: 06/12/2016 12:50:35 Confirmation # [id number] Dictation # [id number] jean HERMOSILLO
--- NOTE | 2016-06-12 12:54 | PN ---
DATE: 06/12/2016 The patient is in bed in no acute distress, nontoxic. On exam, the patient was seen earlier today in room 320 with a temperature of 97, blood pressure is 1 30/70, respiratory rate of 18. EXAMINATION OF HENT: Unremarkable. NECK: Supple. LUNGS: Have decreased breath sounds. HEART EXAMINATION: Normal S1, S2. ABDOMINAL EXAMINATION: Soft, nontender. LABORATORY EXAMINATION: Reviewed. ASSESSMENT AND PLAN: A 80-year-old female seen in room 320, with right 2nd toe and metatarsal head osteomyelitis status post surgery, post-procedure day #4 with a chronic renal failure, obesity, BMI o f 38, with osteoarthritis, hypertension, diabetes, hypothyroidism, status post left toe amputation, s tatus post right hip surgery on Zyvox and Zosyn, and awaiting for OR cultures and pathology report. Will follow with you. Clay Oneill MD cc: [phone] TT: 06/12/2016 12:53:55 Confirmation # [id number] Dictation # [id number] octavio
[2016-06-12] MEDS ORDERED: Insulin Human NPH/Reg 70/30 Vial(3 ml) SC SCH (16:30)
--- NOTE | 2016-06-12 18:30 | PN ---
DATE: 06/12/2016 The patient is a 80-year-old, seen and examined. Complained of diarrhea, had 3 bowel movements sinc e morning. Denies any abdominal pain. States she is sleeping better with Ativan. PHYSICAL EXAMINATION: VITAL SIGNS: She is afebrile, pulse 81, respirations 18, blood pressure 134/63. LUNGS: Bilateral fair airflow, no rhonchi or crackle. HEART: S1, S2 audible. ABDOMEN: Soft, obese, nontender, no rebound, no guarding. NEUROLOGIC: She is awake and alert, communicative. Moves all extremities. EXTREMITIES: Left foot is wrapped in the dressing and so is the right heel. LABORATORY: Blood sugar this morning was 202. ASSESSMENT: 1. Diarrhea, rule out Clostridium difficile. 2. Left second toe amputation secondary to osteomyelitis. 3. Hypertension. 4. Hypothyroidism. PLAN: Currently, the patient is on Zyvox and Zosyn. I will discontinue Colace, give her one dose of loperamide, check stool for C. dif. I will follow up CBC and CMP in a.m. Dr. Maliha Palmer is followin g her for her diabetes. Liam Fernandez MD cc: [phone] TT: 06/12/2016 18:29:31 Confirmation # [id number] Dictation # [id number] octavio
[2016-06-13] MEDS: Enoxaparin 40 mg Syringe SC SCH (05:48)
[2016-06-13] MEDS: Levothyroxine 75 MCG TAB PO SCH (05:49)
[2016-06-13] MEDS: Pantoprazole 40 mg EC Tab PO SCH (05:49)
[2016-06-13] MEDS: Piperacillin/Tazobact 3.375 gm 100 ML IVPB SCH (05:49)
[2016-06-13] MEDS: Insulin Reg-LOW-Coverage SC SCH ×4 (06:29→22:18)
[2016-06-13] MEDS ORDERED: Insulin Human NPH/Reg 70/30 Vial(3 ml) SC SCH ×2 (07:30→16:30)
[2016-06-13 08:02] LABS: ADD MANUAL DIFF? NO
[2016-06-13 08:05] LABS: BASO # 0.04 K/mm3 (0.0-2.0); BASO % 0.6 % (0.0-3.0); EOS # 0.5 (0.0-0.7); GRAN # 3.66 (1.4-6.5); GRAN % 56.5 % (50.0-68.0); HEMATOCRIT 32.4 % (36.0-48.0); LYMPH # 1.7 (1.2-3.4); LYMPH % 26.9 % (22.0-35.0); MEAN CELL VOLUME 93.1 fL (80.0-105.0); MEAN CORPUSCULAR HEMOGLOBIN 30.7 pg (25.0-35.0); MEAN PLATELET VOLUME 11.3 fl (7.0-11.0); MONO # 0.5 (0.1-0.6); PLATELET COUNT 204 10^3/uL (120.0-450.0); RED CELL DISTRIBUTION WIDTH 14.2 % (11.5-14.5); WHITE BLOOD COUNT 6.5 10^3/ul (4.5-11.0)
[2016-06-13 08:23] LABS: ALB/GLOB RATIO 0.9 (1.1-1.8); BILIRUBIN,TOTAL 0.9 mg/dL (0.2-1.3); CALCIUM 8.9 mg/dL (8.4-10.5); TOTAL PROTEIN 7.3 g/dL (5.8-8.3)
[2016-06-13 08:44] LABS: T4 8.3 ug/dL (5.5-11.0)
[2016-06-13] MEDS: Metoprolol Succinate 25 mg XL Tab PO SCH (08:47)
[2016-06-13 08:58] LABS: THYROID STIMULATING HORMONE 4.19 mIU/mL (0.46-4.68)
[2016-06-13] MEDS ORDERED: Cefpodoxime (Vantin) 200 mg Tab PO SCH (10:00)
--- NOTE | 2016-06-13 10:14 | PN ---
DATE: 06/13/2016 The patient is in bed in no acute distress, nontoxic. PHYSICAL EXAMINATION: VITAL SIGNS: Temperature is 98. Blood pressure is 130/70, respiratory rate of 18, heart rate of 81. HEENT: Unremarkable. NECK: Supple. LUNGS: Have decreased breath sounds. HEART: Normal S1, S2. ABDOMEN: Soft. LABORATORY EXAMINATION: Reveals a white count of 6.5, hemoglobin of 10, platelets of 204, BUN of 28, creatinine of 1.2. ASSESSMENT AND PLAN: This is a 80-year-old female with a right second toe metatarsal head osteomyelitis status post surgery, post-procedure 5, chronic renal failure, obesity, osteoarthritis, hypertension, diabetes, hypothyroidism, status post left toe amputation on Zosyn and Zyvox. The patient had diarrhea yesterday, and stool for Clostridium difficile was requested. Review of the chart reveals the patient's surgery of the resection of the head of the metatarsal was amputated and the second digit on 06/08. The pathology report of the toe from 06/08 reveals the patient's portion of the toe showing reparative bone changes and surrounding soft tissue and acute and chronic inflammation with granulation tissue. Resection margin is viable showing inflammation of soft tissue, but no inflammation in the bone. Margins are free of osteomyelitis. Microbiology reveals the blood cultures are negative. Anaerobic cultures of the toe are no organisms seen on gram stain and no growth from the , and earlier cultures did have coag negative enterococcus from the toe on the and corynebacterium. At this point, the patient is postop day #5. We will discontinue the Zyvox and Zosyn since the cultures are negative. We will complete with Vantin x 5 days , pending stool for Clostridium difficile,also will check abdominal ultrasound due to elevated Lfts and alk phos. We will follow closely with you. Clay Oneill MD cc: [phone] TT: 06/13/2016 10:13:23 Confirmation # [id number] Dictation # [id number] jn [id number]
[2016-06-13] MEDS: Potassium Chloride 20 mEq ER Tab PO SCH (10:17)
[2016-06-13] MEDS: Cholecalciferol 400 Intl Units Tab PO SCH (10:18)
[2016-06-13] MEDS: Collagenase 250 Units/gm Ointment(30 gm) TOP SCH (10:19)
[2016-06-13] MEDS: Cefpodoxime (Vantin) 100 mg Tab PO SCH ×2 (10:35→22:23)
[2016-06-13] MEDS: Nystatin 100,000 Units/gm Topical Pow(15 gm) TOP SCH ×2 (10:36→17:27)
--- NOTE | 2016-06-13 11:25 | PN ---
DATE: 06/13/2016 ROOM: 320 U. SUBJECTIVE: This is a 80-year-old female with recent uncontrolled type 2 insulin-requiring diabetes, admitted here with osteomyelitis and underwent an amputation of the right second digit of the right foot, as noted. She has severe underlying diabetic vasculopathy and peripheral arterial disease as n oted. Her oral intake, however, is quite variable with glycemic fluctuations as noted and today's gl ucose levels have ranged from 78 to 89 and 125 mg/dL. Her latest chemistry showed BUN of 28, sodium 138, potassium 4.0, chloride 102, CO2 27, glucose 93 and creatinine 1.2. Her repeat thyroid study sh owed a T4 of 8.3 with a TSH of 4.19. So at this time, we will actually continue the levothyroxine gi brody at 75 mcg daily as ordered. We will also modify the premixed insulin regimen and lower the Humul in 70/30 to 44 units a.c. breakfast and 24 units a.c. dinner to start tonight. We will titrate incr ementally as indicated to optimize metabolic control. We will also continue the low dose correction scale using regular insulin as ordered. We will follow. Maliha Palmer MD cc: [phone] TT: 06/13/2016 11:25:17 Confirmation # [id number] Dictation # [id number] octavio
--- NOTE | 2016-06-13 14:20 | US ---
HISTORY: inc LFT's size of cbd , bg didtention COMPARISON: None. TECHNIQUE: Grayscale imaging was performed. FINDINGS: LIVER: Measures 15.2 cm. There is diffuse increased echogenicity of the liver parenchyma. No mass. No intrahepatic bile duct dilatation. GALLBLADDER: There is sludge within the gallbladder. No gallstones. COMMON BILE DUCT: Measures 3.0 mm. No stones. No dilatation. PANCREAS: Unremarkable as visualized. No mass. No ductal dilatation. RIGHT KIDNEY: Measures 11.8cm. Normal echogenicity. No calculus, mass, or hydronephrosis. LEFT KIDNEY: Measures 9.5cm. Normal echogenicity. No calculus, mass, or hydronephrosis. There is a 1.7 x 0.9 by 1.4 cm cyst in the lower pole. SPLEEN: Normal in size and contour. No mass. AORTA: No aneurysmal dilatation. IVC: Unremarkable. OTHER FINDINGS: None. IMPRESSION: Diffuse increased echogenicity in the liver may reflect hepatic steatosis however parenchymal infectious/ inflammatory etiologies cannot be entirely excluded. Clinical and laboratory correlation is advised. No cholelithiasis or biliary dilatation.
--- NOTE | 2016-06-13 19:05 | PN ---
DATE: 06/13/2016 SUBJECTIVE: The patient is a 80-year-old, seen and examined, lying in bed, complained of diarrhea, h ad 2 bowel movements this morning. Otherwise, doing well. PHYSICAL EXAMINATION: VITAL SIGNS: She is afebrile, pulse 80, respirations 18, blood pressure /53. LUNGS: Bilateral fair airflow, no rhonchi or crackle. HEART: S1, S2 audible. ABDOMEN: Soft, obese, nontender, no rebound, no guarding. NEUROLOGIC: She is awake and alert, communicative, able to move all extremities, but has generalized weakness, unable to walk on her own. Bilateral legs, no edema. Her left foot is in dressing. Righ t heel is in dressing. LABORATORY EXAMINATION: WBC 6.5, hemoglobin 10.7, hematocrit 32.4, platelet of 204. Chemistry: Sod ium 138, potassium 4.0, chloride 102. CO2 of 27, BUN 28, creatinine 1.2. Blood sugar of 93. AST is 183, ALT 141, alkaline phosphatase is 361. Stool for C. diff is pending. ASSESSMENT: 1. Left second toe osteomyelitis, status post amputation. 2. Diarrhea, rule out Clostridium difficile. 3. Insulin-dependent diabetes, being monitored by Dr. Maliha Palmer. 4. Deconditioning and difficulty walking. 5. Hypertension. 6. Hyperlipidemia. 7. Abnormal LFTs. PLAN: I will order for CBC and CMP for morning. If trend is upward, we will get abdominal sonogram. Her laxative has been discontinued. We will follow up on electrolytes in the a.m. Liam Fernandez MD cc: [phone] TT: 06/13/2016 19:04:41 Confirmation # [id number] Dictation # [id number] mn
[2016-06-13] MEDS ORDERED: Alum-Mag Hydrox-Simethicone Susp (30 mL) PO STA (21:09)
--- NOTE | 2016-06-13 21:09 | CP.PCM.PN ---
Subjective - Date & Time of Evaluation Date of Evaluation: 06/13/16 Time of Evaluation: 21:06 - Subjective Subjective: S:Patient was seen at bedside because she requested tylenol.As per nurse LFT's were elevated .She called me to give something else instead of tylenol. Patient does not want liquid mylatna when I offered it with motrin that I ordered. She has mild pain in hands. Medical record was reviewed. O: Last Vital Signs 3 Temp 97 F L 06/13/16 16:00 Pulse 77 06/13/16 16:00 Resp 18 06/13/16 16:00 BP 120/58 L 06/13/16 16:00 Pulse Ox 100 06/13/16 16:00 Awake,alert, not in distress. LUNGS: Normal breathing pattern. SKELETAL:Hands-No deformity.Right middle finger mild flexon deformity? A:Pain in hands. P:Motrin 800 mg PO now, Pepcid 20 mg PO now. Objective - Vital Signs/Intake and Output Vital Signs (last 24 hours): Temp Pulse Resp BP Pulse Ox 97 F L 77 18 120/58 L 100 06/13/16 16:00 06/13/16 16:00 06/13/16 16:00 06/13/16 16:00 06/13/16 16:00 Intake and Output: 06/13/16 06/14/16 18:59 06:59 Intake Total 420 Balance 420 - Medications Medications: Current Medications Acetaminophen (Tylenol 325mg Tab) 650 mg PO Q4 PRN PRN Reason: Pain, Mild (1-3) Last Admin: 06/12/16 22:31 Dose: 650 mg Atorvastatin Calcium (Lipitor) 20 mg PO HS [facility] Last Admin: 06/12/16 21:09 Dose: 20 mg Calcium Carbonate (Caltrate) 600 mg PO BID [facility] Last Admin: 06/13/16 17:29 Dose: 600 mg Cefpodoxime Proxetil (Vantin) 100 mg PO Q12 [facility] PRN Reason: Protocol Stop: 06/18/16 10:01 Last Admin: 06/13/16 10:35 Dose: 100 mg Collagenase (Santyl) 1 gm TOP DAILY [facility] Last Admin: 06/13/16 10:19 Dose: 1 cer Enoxaparin Sodium (Lovenox) 40 mg SC 0630 [facility] PRN Reason: Protocol Last Admin: 06/13/16 05:48 Dose: 40 mg Furosemide (Lasix) 20 mg PO DAILY [facility] Last Admin: 06/13/16 10:37 Dose: 20 mg Insulin Human Regular (Humulin R Low) 0 units SC ACHS [facility] PRN Reason: Protocol Last Admin: 06/13/16 17:26 Dose: 2 units Levothyroxine Sodium (Synthroid) 75 mcg PO 0630 [facility] Last Admin: 06/13/16 05:49 Dose: 75 mcg Loratadine (Claritin) 10 mg PO DAILY [facility] Last Admin: 06/13/16 10:40 Dose: 10 mg Lorazepam (Ativan) 2 mg PO HS [facility] PRN Reason: Protocol Last Admin: 06/12/16 21:09 Dose: 2 mg Losartan Potassium (Cozaar) 12.5 mg PO DAILY [facility] Last Admin: 06/13/16 10:38 Dose: 12.5 mg Metoprolol Succinate (Toprol Xl) 25 mg PO BRK [facility] Last Admin: 06/13/16 08:47 Dose: 25 mg Nystatin (Nystop Topical Powder) 1 gm TOP BID [facility] Last Admin: 06/13/16 17:27 Dose: 1 applic Pantoprazole Sodium (Protonix Ec Tab) 40 mg PO 0630 [facility] Last Admin: 06/13/16 05:49 Dose: 40 mg Potassium Chloride (K-Dur 20 Meq Er Tab) 20 meq PO DAILY [facility] Last Admin: 06/13/16 10:17 Dose: 20 meq Vitamin D (Vitamin D 400 Intl Units Tab) 400 intlu PO DAILY [facility] Last Admin: 06/13/16 10:18 Dose: 400 intlu - Labs Labs: 06/13/16 08:01 06/13/16 08:01
[2016-06-14] MEDS: Pantoprazole 40 mg EC Tab PO SCH (05:33)
[2016-06-14] MEDS: Enoxaparin 40 mg Syringe SC SCH (05:33)
[2016-06-14] MEDS: Levothyroxine 75 MCG TAB PO SCH (05:34)
[2016-06-14 06:12] LABS: ADD MANUAL DIFF? NO
[2016-06-14 06:18] LABS: BASO # 0.03 K/mm3 (0.0-2.0); BASO % 0.5 % (0.0-3.0); EOS # 0.4 (0.0-0.7); EOS % 7.3 % (1.5-5.0); GRAN # 2.74 (1.4-6.5); GRAN % 46.8 % (50.0-68.0); LYMPH # 1.9 (1.2-3.4); LYMPH % 33.1 % (22.0-35.0); MEAN CELL VOLUME 93.8 fL (80.0-105.0); MEAN CORPUSCULAR HEMOGLOBIN 30.6 pg (25.0-35.0); MEAN CORPUSCULAR HGB CONC 32.7 g/dl (31.0-37.0); MEAN PLATELET VOLUME 10.8 fl (7.0-11.0); MONO # 0.7 (0.1-0.6); MONO % 12.3 % (1.0-6.0); PLATELET COUNT 192 10^3/uL (120.0-450.0); WHITE BLOOD COUNT 5.9 10^3/ul (4.5-11.0)
[2016-06-14 06:40] LABS: ALB/GLOB RATIO 0.9 (1.1-1.8); BILIRUBIN,TOTAL 0.6 mg/dL (0.2-1.3); CALCIUM 8.9 mg/dL (8.4-10.5); TOTAL PROTEIN 6.9 g/dL (5.8-8.3)
[2016-06-14] MEDS ORDERED: Insulin Human NPH/Reg 70/30 Vial(3 ml) SC SCH (07:30)
[2016-06-14] MEDS: Metoprolol Succinate 25 mg XL Tab PO SCH (08:21)
[2016-06-14] MEDS: Insulin Reg-LOW-Coverage SC SCH ×4 (08:25→22:41)
[2016-06-14] MEDS: Cholecalciferol 400 Intl Units Tab PO SCH (09:52)
[2016-06-14] MEDS: Potassium Chloride 20 mEq ER Tab PO SCH (09:52)
[2016-06-14] MEDS: Cefpodoxime (Vantin) 100 mg Tab PO SCH ×2 (09:52→22:42)
[2016-06-14] MEDS: Collagenase 250 Units/gm Ointment(30 gm) TOP SCH (09:54)
[2016-06-14] MEDS: Nystatin 100,000 Units/gm Topical Pow(15 gm) TOP SCH ×2 (09:54→17:26)
--- NOTE | 2016-06-14 13:36 | PN ---
DATE: 06/14/2016 SUBJECTIVE: The patient is 80 years old, seen and examined, sitting in chair. Complained of perirec susan burning, also complained of diarrhea. Had 2 loose bowel movements this morning. No abdominal pa in, no nausea. Eating and tolerating. PHYSICAL EXAMINATION: VITAL SIGNS: The patient is afebrile, pulse 76, respirations 18, blood pressure 118/56. LUNGS: Bilateral fair airflow, no rhonchi or crackle. HEART: S1, S2 audible. No murmur. ABDOMEN: Soft, obese, nontender, no rebound, no guarding. NEUROLOGIC: She is awake and alert, communicative, unable to stand up on her own. Bilateral feet ar e in dressing. Her left buttock wound has healed. LABORATORY EXAMINATION: WBC is 5.9, hemoglobin 9.8, hematocrit 30, platelets 192. Chemistry: Sodiu m 139, potassium 4.0, chloride 102, CO2 of 27, BUN 35, creatinine 1.2, blood sugar 153, AST 185, ALT 152, alk phos is 385. She has abdominal sonogram done that shows diffuse increased echogenicity in t he liver, may reflect hepatic steatosis. However, parenchymal infectious inflammatory etiology canno t be entirely excluded ____ laboratory correlation. ASSESSMENT AND PLAN: 1. Abnormal LFTs, probably related to antibiotic. 2. Hypertension. 3. Hyperlipidemia. 4. Insulin dependent diabetes. PLAN: Currently, patient is on Vantin. Her IV antibiotic has been discontinued. She is on DVT prop hylaxis. She is on IV Lasix. She is on beta sesar and levothyroxine. She is on PPI. Stool for C . diff is negative. We will give her 1 dose of Imodium stat and then monitor it and we will reevalua te patient in a.m. Liam Fernandez MD cc: [phone] TT: 06/14/2016 13:35:43 Confirmation # [id number] Dictation # [id number]
--- NOTE | 2016-06-14 15:32 | CP.PCM.PN ---
Subjective - Date & Time of Evaluation Date of Evaluation: 06/14/16 Time of Evaluation: 10:50 - Subjective Subjective: Comfortable in bed, had loose stools the other day but has now resolved. No fevers overnight, no pain in the foot currently. Objective - Vital Signs/Intake and Output Vital Signs (last 24 hours): Temp Pulse Resp BP Pulse Ox 97 F L 76 18 118/56 L 100 06/14/16 10:00 06/14/16 10:00 06/14/16 10:00 06/14/16 10:00 06/14/16 10:00 Intake and Output: 06/14/16 06/14/16 06:59 18:59 Intake Total 420 Balance 420 - Medications Medications: Current Medications Acetaminophen (Tylenol 325mg Tab) 650 mg PO Q4 PRN PRN Reason: Pain, Mild (1-3) Last Admin: 06/12/16 22:31 Dose: 650 mg Atorvastatin Calcium (Lipitor) 20 mg PO HS [facility] Last Admin: 06/13/16 22:22 Dose: 20 mg Calcium Carbonate (Caltrate) 600 mg PO BID [facility] Last Admin: 06/14/16 09:52 Dose: 600 mg Cefpodoxime Proxetil (Vantin) 100 mg PO Q12 [facility] PRN Reason: Protocol Stop: 06/18/16 10:01 Last Admin: 06/14/16 09:52 Dose: 100 mg Collagenase (Santyl) 1 gm TOP DAILY [facility] Last Admin: 06/14/16 09:54 Dose: 1 cer Enoxaparin Sodium (Lovenox) 40 mg SC 0630 [facility] PRN Reason: Protocol Last Admin: 06/14/16 05:33 Dose: 40 mg Furosemide (Lasix) 20 mg PO DAILY [facility] Last Admin: 06/14/16 09:53 Dose: 20 mg Insulin Human Regular (Humulin R Low) 0 units SC ACHS [facility] PRN Reason: Protocol Last Admin: 06/14/16 11:33 Dose: Not Given Levothyroxine Sodium (Synthroid) 75 mcg PO 0630 [facility] Last Admin: 06/14/16 05:34 Dose: 75 mcg Loperamide HCl (Imodium) 2 mg PO QID PRN PRN Reason: Diarrhea Last Admin: 06/14/16 12:47 Dose: 2 mg Lorazepam (Ativan) 2 mg PO HS [facility] PRN Reason: Protocol Last Admin: 06/13/16 22:20 Dose: 2 mg Losartan Potassium (Cozaar) 12.5 mg PO DAILY [facility] Last Admin: 06/14/16 09:52 Dose: 12.5 mg Metoprolol Succinate (Toprol Xl) 25 mg PO BRK [facility] Last Admin: 06/14/16 08:21 Dose: 25 mg Nystatin (Nystop Topical Powder) 1 gm TOP BID [facility] Last Admin: 06/14/16 09:54 Dose: 1 applic Pantoprazole Sodium (Protonix Ec Tab) 40 mg PO 0630 [facility] Last Admin: 06/14/16 05:33 Dose: 40 mg Potassium Chloride (K-Dur 20 Meq Er Tab) 20 meq PO DAILY [facility] Last Admin: 06/14/16 09:52 Dose: 20 meq Vitamin D (Vitamin D 400 Intl Units Tab) 400 intlu PO DAILY [facility] Last Admin: 06/14/16 09:52 Dose: 400 intlu - Labs Labs: 06/14/16 06:00 06/14/16 06:00 - Constitutional Appears: Non-toxic, No Acute Distress - Head Exam Head Exam: NORMAL INSPECTION - Neck Exam Neck Exam: absent: Lymphadenopathy, Meningismus - Respiratory Exam Respiratory Exam: Decreased Breath Sounds - Cardiovascular Exam Cardiovascular Exam: +S1, +S2 - GI/Abdominal Exam GI & Abdominal Exam: Soft. absent: Tenderness Assessment and Plan - Assessment and Plan (Free Text) Plan: Assessment 2nd right toe and metatarsal head osteomyelitis S/P surgery POD #6; no inflammation in the bone noted, and on the margins, it is only the soft tissue that has inflammation chronic renal failure obesity with BMI 38 osteoarthritis HTN DM hypothyroidism S/P left toe amputation S/P right hip surgery Plan continue PO Vantin (day 2 of 5) Will continue to follow clinically; monitor bowel movements
[2016-06-14] MEDS: Insulin Human NPH/Reg 70/30 Vial(3 ml) SC SCH (17:25)
[2016-06-14] MEDS: Vitamins A & D Oint UD Foilpak TOP SCH ×2 (17:27→22:42)
--- NOTE | 2016-06-14 18:45 | PN ---
DATE: 06/14/2016 This is a 80-year-old diabetic female status post amputation of the second digit and second metatarsa l head on her right foot secondary to osteomyelitis and infection. The patient is seen in transition al care. The patient also has an ulceration on her left heel. She is wearing offloading shoes for t he heel and a surgical shoe on the right. I did speak with physical therapy today and the patient is allowed to weightbear with her surgical shoes on. VITAL SIGNS: Noted. Her temperature is 97, blood pressure is 118/56, respirations are 18. LABORATORY DATA: Show a white blood cell count of 5.9. The H and H is 9.8 and 30.0. The platelets are 192 and the granulocytes have come down to 46.8. The lymphocytes are now normal. The patient's chemistry shows a BUN of 35, creatinine is 1.2, blood glucose is 153 in the blood. She does have inc reased liver functions and an increased alk phos. Microbiology for the OR was deep tissue culture an d bone culture was no growth. We are still awaiting the pathology report. The patient's feet were evaluated. She has sutures in the right foot and they are all intact. There is no dehiscence. There is mild edema to the foot and leg. However, there is no cellulitis. There is no fluctuance and there is no pain or discomfort. Capillary refill to the toes is within normal limits. The patient's left leg has the heel ulceration. We have been using Santyl collagenase, whic h has helped with some granulation tissue. At this time, the wound is improved since first being adm itted. She is on IV antibiotics as per infectious disease and there is no sinus tract. There is min imal drainage on the dressing and there are no signs of any infection. ASSESSMENT: A diabetic with neuropathy with a stage III ulceration to the left heel and that is a Wa gner grade II. Status post amputation of the 2nd toe and metatarsal on the right. PLAN OF TREATMENT: As both legs and feet were cleansed, Betadine placed surgical site with dry steri le dressing and Tubigrips for mild edema control. The left was dressed with Santyl foam and a dry st erile dressing and the Tubigrips. The patient's surgical dressing will not be changed until . However, the left heel must be a daily dressing. The patient will be seen in followup. Brinda Patterson DPM cc: [phone] TT: 06/14/2016 18:44:34 Confirmation # [id number] Dictation # [id number] mn
[2016-06-15] MEDS: Enoxaparin 40 mg Syringe SC SCH (06:07)
[2016-06-15] MEDS: Levothyroxine 75 MCG TAB PO SCH (06:08)
[2016-06-15] MEDS: Pantoprazole 40 mg EC Tab PO SCH (06:08)
[2016-06-15] MEDS: Insulin Human NPH/Reg 70/30 Vial(3 ml) SC SCH ×2 (06:46→17:06)
[2016-06-15] MEDS: Insulin Reg-LOW-Coverage SC SCH ×4 (06:46→22:08)
[2016-06-15] MEDS: Metoprolol Succinate 25 mg XL Tab PO SCH (08:38)
--- NOTE | 2016-06-15 09:02 | PN ---
DATE: 06/14/2016 ENDO FOLLOWUP NOTE ROOM: 320. This is a 80-year-old female with recent uncontrolled type 2 insulin-requiring diabetes who recently underwent an amputation of the right second digit in the right foot with underlying osteomyelitis, an d is now being followed closely for metabolic management. Her oral intake is quite variable at this time, and her glycemic fluctuations improved as noted. LABORATORY DATA: Her glucose levels have ranged from 237-280 and 178 mg/dL. The latest chemistry sh owed a BUN of 35, sodium 139, potassium 4.0, chloride 102, CO2 of 27, glucose 153, and creatinine 1.2 . So, at this time, we will modify her premixed insulin regimen and increase the Humulin 70/30 to 46 un its a.c. breakfast and 26 units a.c. dinner to start tonight. We will obtain serial chemistries and supplement accordingly as needed. We will follow. Maliha Palmer MD cc: [phone] TT: 06/15/2016 09:01:43 Confirmation # [id number] Dictation # [id number] jn
[2016-06-15] MEDS: Collagenase 250 Units/gm Ointment(30 gm) TOP SCH (10:46)
[2016-06-15] MEDS: Cholecalciferol 400 Intl Units Tab PO SCH (10:46)
[2016-06-15] MEDS: Potassium Chloride 20 mEq ER Tab PO SCH (10:47)
[2016-06-15] MEDS: Cefpodoxime (Vantin) 100 mg Tab PO SCH ×2 (10:47→21:26)
[2016-06-15] MEDS: Vitamins A & D Oint UD Foilpak TOP SCH ×3 (10:48→17:05)
[2016-06-15] MEDS: Nystatin 100,000 Units/gm Topical Pow(15 gm) TOP SCH ×2 (10:48→17:05)
--- NOTE | 2016-06-15 11:55 | CP.PCM.PN ---
<BrandonHeydi - Last Filed: 06/15/16 11:48> Subjective - Date & Time of Evaluation Date of Evaluation: 06/15/16 Time of Evaluation: 11:48 - Subjective Subjective: 80 y/o female seen at bedside in TCU 7 days s/p right 2nd digit amputation with metatarsal head resection and also for left heel ulceration. Patient denies any acute events overnight. Her dressing remains clean,dry,intact,surgical shoes intact to both feet. Patient denies any n/f/c/v/d/sob. Objective - Vital Signs/Intake and Output Vital Signs (last 24 hours): Temp Pulse Resp BP Pulse Ox 97 F L 89 18 130/73 100 06/14/16 10:00 06/15/16 10:47 06/14/16 10:00 06/15/16 10:47 06/14/16 10:00 Intake and Output: 06/15/16 06/15/16 06:59 18:59 Intake Total 420 Balance 420 - Medications Medications: Current Medications Acetaminophen (Tylenol 325mg Tab) 650 mg PO Q4 PRN PRN Reason: Pain, Mild (1-3) Last Admin: 06/12/16 22:31 Dose: 650 mg Atorvastatin Calcium (Lipitor) 20 mg PO HS [facility] Last Admin: 06/14/16 22:41 Dose: 20 mg Calcium Carbonate (Caltrate) 600 mg PO BID [facility] Last Admin: 06/15/16 10:47 Dose: 600 mg Cefpodoxime Proxetil (Vantin) 100 mg PO Q12 [facility] PRN Reason: Protocol Stop: 06/18/16 10:01 Last Admin: 06/15/16 10:47 Dose: 100 mg Collagenase (Santyl) 1 gm TOP DAILY [facility] Last Admin: 06/15/16 10:46 Dose: 1 cer Enoxaparin Sodium (Lovenox) 40 mg SC 0630 [facility] PRN Reason: Protocol Last Admin: 06/15/16 06:07 Dose: 40 mg Furosemide (Lasix) 20 mg PO DAILY [facility] Last Admin: 06/15/16 10:46 Dose: 20 mg Ibuprofen (Motrin Tab) 400 mg PO Q6H PRN; Protocol PRN Reason: mild pain Insulin Human Regular (Humulin R Low) 0 units SC ACHS [facility] PRN Reason: Protocol Last Admin: 06/15/16 06:46 Dose: Not Given Levothyroxine Sodium (Synthroid) 75 mcg PO 0630 [facility] Last Admin: 06/15/16 06:08 Dose: 75 mcg Loperamide HCl (Imodium) 2 mg PO QID PRN PRN Reason: Diarrhea Last Admin: 06/15/16 10:46 Dose: 2 mg Loratadine (Claritin) 10 mg PO DAILY PRN PRN Reason: itchiness Lorazepam (Ativan) 2 mg PO HS [facility] PRN Reason: Protocol Last Admin: 06/14/16 22:41 Dose: 2 mg Losartan Potassium (Cozaar) 12.5 mg PO DAILY [facility] Last Admin: 06/15/16 10:47 Dose: 12.5 mg Metoprolol Succinate (Toprol Xl) 25 mg PO BRK [facility] Last Admin: 06/15/16 08:38 Dose: 25 mg Nystatin (Nystop Topical Powder) 1 gm TOP BID [facility] Last Admin: 06/15/16 10:48 Dose: 1 applic Pantoprazole Sodium (Protonix Ec Tab) 40 mg PO 629 [facility] Last Admin: 06/15/16 06:08 Dose: 40 mg Potassium Chloride (K-Dur 20 Meq Er Tab) 20 meq PO DAILY [facility] Last Admin: 06/15/16 10:47 Dose: 20 meq Vitamin A (Vitamin A & D Oint Ud Foilpak) 1 ea TOP QID [facility] Last Admin: 06/15/16 10:48 Dose: 1 ea Vitamin D (Vitamin D 400 Intl Units Tab) 400 intlu PO DAILY [facility] Last Admin: 06/15/16 10:46 Dose: 400 intlu - Labs Labs: 06/14/16 06:00 06/14/16 06:00 - Constitutional Appears: Well, Non-toxic, No Acute Distress - Extremities Exam Additional comments: Vasc: palpable DP and PT pulses, CFT < 3 sec to all digits, TG wnl, nonpitting edema to right foot noted neuro: grossly diminished derm: nonpitting edema, no erythema, sutures intact, surgical incision site well coapted,no dehiscence, no drainage, no purulence, no active bleeding left heel- superficial ulceration with fibrotic base and hyperkeratotic border measuring 2cm x 2cm x 0.2 cm, mild serous drainage, no purulence, no acute clinical signs of infection ortho: no pain on palpation to surgical site - Neurological Exam Neurological Exam: Alert, Awake, Oriented x3 - Psychiatric Exam Psychiatric exam: Normal Affect, Normal Mood Assessment and Plan - Assessment and Plan (Free Text) Assessment: 80 y/o female seen at bedside 7 days s/p right 2nd digit amputation with metatarsal head resection , 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 Owusu labs and vitals reviewed, afebrile continue IV abx as per ID cleansed wounds with saline dressing to right foot remains c/d/i left foot cleansed with saline, applied santyl optifoam to L heel continue wearing multipodus boot while in bed podiatry will continue to monitor while patient remains in house <Robby Owusu - Last Filed: 06/15/16 12:41> Objective - Vital Signs/Intake and Output Vital Signs (last 24 hours): Temp Pulse Resp BP Pulse Ox 97 F L 89 18 130/73 100 06/14/16 10:00 06/15/16 10:47 06/14/16 10:00 06/15/16 10:47 06/14/16 10:00 Intake and Output: 06/15/16 06/15/16 06:59 18:59 Intake Total 420 Balance 420 - Medications Medications: Current Medications Acetaminophen (Tylenol 325mg Tab) 650 mg PO Q4 PRN PRN Reason: Pain, Mild (1-3) Last Admin: 06/12/16 22:31 Dose: 650 mg Atorvastatin Calcium (Lipitor) 20 mg PO HS [facility] Last Admin: 06/14/16 22:41 Dose: 20 mg Calcium Carbonate (Caltrate) 600 mg PO BID [facility] Last Admin: 06/15/16 10:47 Dose: 600 mg Cefpodoxime Proxetil (Vantin) 100 mg PO Q12 [facility] PRN Reason: Protocol Stop: 06/18/16 10:01 Last Admin: 06/15/16 10:47 Dose: 100 mg Collagenase (Santyl) 1 gm TOP DAILY [facility] Last Admin: 06/15/16 10:46 Dose: 1 cer Enoxaparin Sodium (Lovenox) 40 mg SC 0630 [facility] PRN Reason: Protocol Last Admin: 06/15/16 06:07 Dose: 40 mg Furosemide (Lasix) 20 mg PO DAILY [facility] Last Admin: 03/28/17 10:46 Dose: 20 mg Ibuprofen (Motrin Tab) 400 mg PO Q6H PRN; Protocol PRN Reason: mild pain Insulin Human Regular (Humulin R Low) 0 units SC ACHS [facility] PRN Reason: Protocol Last Admin: 06/15/16 12:20 Dose: Not Given Levothyroxine Sodium (Synthroid) 75 mcg PO 0630 [facility] Last Admin: 06/15/16 06:08 Dose: 75 mcg Loperamide HCl (Imodium) 2 mg PO QID PRN PRN Reason: Diarrhea Last Admin: 06/15/16 10:46 Dose: 2 mg Loratadine (Claritin) 10 mg PO DAILY PRN PRN Reason: itchiness Lorazepam (Ativan) 2 mg PO HS [facility] PRN Reason: Protocol Last Admin: 06/14/16 22:41 Dose: 2 mg Losartan Potassium (Cozaar) 12.5 mg PO DAILY [facility] Last Admin: 06/15/16 10:47 Dose: 12.5 mg Metoprolol Succinate (Toprol Xl) 25 mg PO BRK [facility] Last Admin: 06/15/16 08:38 Dose: 25 mg Nystatin (Nystop Topical Powder) 1 gm TOP BID [facility] Last Admin: 06/15/16 10:48 Dose: 1 applic Pantoprazole Sodium (Protonix Ec Tab) 40 mg PO 0630 [facility] Last Admin: 06/15/16 06:08 Dose: 40 mg Potassium Chloride (K-Dur 20 Meq Er Tab) 20 meq PO DAILY [facility] Last Admin: 06/15/16 10:47 Dose: 20 meq Vitamin A (Vitamin A & D Oint Ud Foilpak) 1 ea TOP QID [facility] Last Admin: 06/15/16 10:48 Dose: 1 ea Vitamin D (Vitamin D 400 Intl Units Tab) 400 intlu PO DAILY [facility] Last Admin: 06/15/16 10:46 Dose: 400 intlu - Labs Labs: 06/14/16 06:00 06/14/16 06:00 Attending/Attestation - Attestation I have personally seen and examined this patient.: Yes I have fully participated in the care of the patient.: Yes I have reviewed all pertinent clinical information, including history, physical exam and plan: Yes
--- NOTE | 2016-06-15 15:28 | PN ---
DATE: 06/15/2016 ROOM: 320 SUBJECTIVE: This is a 80-year-old female with recent uncontrolled type 2 insulin-requiring diabetes who underwent a right 2nd digit amputation in the right foot following persistent osteomyelitis and i s now being followed closely for metabolic management. Her glycemic levels are fluctuating, but impr dada, and today's glucose levels have ranged from 172-181 and 200 mg/dL. The latest chemistry showed a BUN of 35, sodium 139, potassium 4.0, chloride 102, CO2 27, glucose 153 and creatinine 1.2. So, at this time, we will continue the same premixed insulin regimen to allow for dose equilibration and keep her on the Humulin 70/30 given as 46 units a.c. breakfast and 26 units a.c. dinner as ordere d. Will continue the low-dose correction scale using regular insulin as ordered. Will titrate incre mentally as indicated to optimize metabolic control. Will follow and advise accordingly. Maliha Palmer MD cc: [phone] TT: 06/15/2016 15:27:56 Confirmation # [id number] Dictation # [id number] [email or web address]
[2016-06-16] MEDS: Vitamins A & D Oint UD Foilpak TOP SCH ×5 (01:38→21:38)
--- NOTE | 2016-06-16 02:01 | PN ---
DATE: 06/15/2016 SUBJECTIVE: The patient is a 80-year-old, seen and examined. Still has multiple complaints. She st ates diarrhea seems to be wet, complains of feeling itchy around the mouth and inside the mouth. Als o has some discomfort in her perirectal area because of diarrhea. PHYSICAL EXAMINATION: VITAL SIGNS: She is afebrile, pulse 89, respirations 18, blood pressure 130/73. LUNGS: Bilateral fair airflow, no rhonchi or crackle. HEART: S1, S2 audible. ABDOMEN: Soft, obese, nontender, no rebound, no guarding. NEUROLOGIC: She is awake and alert, sitting in chair and complained of some left foot discomfo rt. ASSESSMENT: 1. Hypertension. 2. Insulin-dependent diabetes. 3. Left second toe amputation because of osteomyelitis. 4. Right heel wound granulating. 5. Hypertension. 6. Hyperlipidemia. 7. Fungal skin rash on her left breast. 8. Hypothyroidism. PLAN: Currently, the patient is on oral Vantin, local wound care by Dr. Patterson is being given for r ecent left foot surgery. We will monitor blood sugar and insulin is being adjusted by Dr. Maliha Palmer. Will reevaluate the patient in a.m. Liam Fernandez MD cc: [phone] TT: 06/16/2016 02:00:41 Confirmation # [id number] Dictation # [id number]
[2016-06-16] MEDS: Enoxaparin 40 mg Syringe SC SCH (05:40)
[2016-06-16] MEDS: Pantoprazole 40 mg EC Tab PO SCH (05:41)
[2016-06-16] MEDS: Levothyroxine 75 MCG TAB PO SCH (05:42)
[2016-06-16] MEDS: Insulin Human NPH/Reg 70/30 Vial(3 ml) SC SCH ×2 (06:57→18:29)
[2016-06-16] MEDS: Insulin Reg-LOW-Coverage SC SCH ×4 (06:58→21:36)
[2016-06-16] MEDS: Metoprolol Succinate 25 mg XL Tab PO SCH (08:32)
--- NOTE | 2016-06-16 09:21 | PN ---
DATE: 06/16/2016 This is a 80-year-old diabetic female seen status post 1 week amputation of the second ray on her rig ht foot and for followup of a left heel ulcer. The patient is seen at bedside. Dressings are clean, dry and intact and her heels are offloaded. The patient is going home Tuesday. The patient's patholo gy report came back and the pathology report is negative for any osteomyelitis remaining in the foot. You will have to look under all visits and you will see the PTH surgical specimen for the toe. The re was inflammation in the soft tissue; however, the resected margin is viable. No inflammation in t he bone. The patient's sutures are intact. There is no dehiscence. There is no edema to the foot a nd there is no cellulitis to the foot. The left heel has an ulceration which is closing; however, th ere is still some slough on the wound bed. There is just one bud of granulation tissue, but this wou nd is clean with no signs of cellulitis, edema, Calor or purulence. LABORATORY DATA: The patient's labs are reviewed. Her last labs were from the . No new labs hav e been ordered since. ASSESSMENT: A diabetic with neuropathy and status post amputation to the right foot with clean bone pathology and heel ulceration, Alcantara 2, on the left heel with no signs of infection. PLAN OF TREATMENT: The right foot was cleansed with Betadine and a dry sterile dressing. That dressi ng will be changed again on Tuesday before patient is to go home. She has visiting nurses and they sh ould resume treatment. That foot is to be changed twice a week by visiting nurses, to cleanse it wit h Betadine and dry sterile dressing. The heel needs to be done Tuesday, Tuesday and Tuesday with Lennon tyl and a dry sterile dressing. The patient will be seen and followed until that time. She also need s Tubigrips to help maintain the edema. Brinda Patterson DPM cc: [phone] TT: 06/16/2016 09:21:12 Confirmation # [id number] Dictation # [id number] [email or web address]
[2016-06-16] MEDS: Potassium Chloride 20 mEq ER Tab PO SCH (11:07)
[2016-06-16] MEDS: Collagenase 250 Units/gm Ointment(30 gm) TOP SCH (11:08)
[2016-06-16] MEDS: Cefpodoxime (Vantin) 100 mg Tab PO SCH ×2 (11:08→21:38)
[2016-06-16] MEDS: Nystatin 100,000 Units/gm Topical Pow(15 gm) TOP SCH ×2 (11:08→18:07)
[2016-06-16] MEDS: Cholecalciferol 400 Intl Units Tab PO SCH (11:10)
--- NOTE | 2016-06-16 12:33 | CP.PCM.PN ---
Subjective - Date & Time of Evaluation Date of Evaluation: 06/16/16 Time of Evaluation: 10:00 - Subjective Subjective: Comfortable in bed, afebrile, not in distress. Objective - Vital Signs/Intake and Output Vital Signs (last 24 hours): Temp Pulse Resp BP Pulse Ox 97 F L 89 18 130/73 100 06/14/16 10:00 06/15/16 10:47 06/14/16 10:00 06/15/16 10:47 06/14/16 10:00 - Medications Medications: Current Medications Acetaminophen (Tylenol 325mg Tab) 650 mg PO Q4 PRN PRN Reason: Pain, Mild (1-3) Last Admin: 06/12/16 22:31 Dose: 650 mg Atorvastatin Calcium (Lipitor) 20 mg PO HS [facility] Last Admin: 06/15/16 21:25 Dose: 20 mg Calcium Carbonate (Caltrate) 600 mg PO BID [facility] Last Admin: 06/15/16 17:04 Dose: 600 mg Cefpodoxime Proxetil (Vantin) 100 mg PO Q12 [facility] PRN Reason: Protocol Stop: 06/18/16 10:01 Last Admin: 06/15/16 21:26 Dose: 100 mg Collagenase (Santyl) 1 gm TOP DAILY [facility] Last Admin: 06/15/16 10:46 Dose: 1 cer Enoxaparin Sodium (Lovenox) 40 mg SC 0630 [facility] PRN Reason: Protocol Last Admin: 06/16/16 05:40 Dose: 40 mg Furosemide (Lasix) 20 mg PO DAILY [facility] Last Admin: 06/15/16 10:46 Dose: 20 mg Ibuprofen (Motrin Tab) 400 mg PO Q6H PRN; Protocol PRN Reason: mild pain Last Admin: 06/15/16 21:25 Dose: 400 mg Insulin Human Regular (Humulin R Low) 0 units SC ACHS [facility] PRN Reason: Protocol Last Admin: 06/16/16 06:58 Dose: Not Given Levothyroxine Sodium (Synthroid) 75 mcg PO 0630 [facility] Last Admin: 06/16/16 05:42 Dose: 75 mcg Loperamide HCl (Imodium) 2 mg PO QID PRN PRN Reason: Diarrhea Last Admin: 06/15/16 10:46 Dose: 2 mg Loratadine (Claritin) 10 mg PO DAILY PRN PRN Reason: itchiness Last Admin: 06/15/16 21:25 Dose: 10 mg Lorazepam (Ativan) 2 mg PO HS [facility] PRN Reason: Protocol Last Admin: 06/15/16 21:24 Dose: 2 mg Losartan Potassium (Cozaar) 12.5 mg PO DAILY [facility] Last Admin: 06/15/16 10:47 Dose: 12.5 mg Metoprolol Succinate (Toprol Xl) 25 mg PO BRK [facility] Last Admin: 06/15/16 08:38 Dose: 25 mg Nystatin (Nystop Topical Powder) 1 gm TOP BID [facility] Last Admin: 06/15/16 17:05 Dose: 1 applic Pantoprazole Sodium (Protonix Ec Tab) 40 mg PO 0630 [facility] Last Admin: 06/16/16 05:41 Dose: 40 mg Potassium Chloride (K-Dur 20 Meq Er Tab) 20 meq PO DAILY [facility] Last Admin: 06/15/16 10:47 Dose: 20 meq Vitamin A (Vitamin A & D Oint Ud Foilpak) 1 ea TOP QID [facility] Last Admin: 06/16/16 01:38 Dose: 1 ea Vitamin D (Vitamin D 400 Intl Units Tab) 400 intlu PO DAILY [facility] Last Admin: 06/15/16 10:46 Dose: 400 intlu - Labs Labs: 06/14/16 06:00 06/14/16 06:00 - Constitutional Appears: Non-toxic, No Acute Distress - Head Exam Head Exam: NORMAL INSPECTION - Respiratory Exam Respiratory Exam: Decreased Breath Sounds - Cardiovascular Exam Cardiovascular Exam: +S1, +S2 - GI/Abdominal Exam GI & Abdominal Exam: Soft. absent: Tenderness Assessment and Plan - Assessment and Plan (Free Text) Plan: Assessment 2nd right toe and metatarsal head osteomyelitis S/P surgery POD #8; no inflammation in the bone noted, and on the margins, it is only the soft tissue that has inflammation chronic renal failure obesity with BMI 38 osteoarthritis HTN DM hypothyroidism S/P left toe amputation S/P right hip surgery Plan continue PO Vantin (day 4 of 5) Will continue to follow clinically; continue to monitor bowel movements
--- NOTE | 2016-06-16 13:21 | PN ---
DATE: 06/16/2016 SUBJECTIVE: The patient is a 80-year-old, seen and examined, sitting in chair, appears to be comfort able, states her diarrhea has subsided and she has some burning in her perirectal area, but it is imp roving. She has discomfort under her left breast. PHYSICAL EXAMINATION: VITAL SIGNS: She is afebrile, pulse 82, respirations 18, blood pressure 95/47. LUNGS: Bilateral good airflow, no rhonchi or crackle. HEART: S1, S2 audible. No murmur. ABDOMEN: Soft, nontender, no rebound, no guarding. NEUROLOGIC: The patient is awake and alert, communicative, moves all extremities. EXTREMITIES: Bilateral feet: They are wrapped in dressing. ASSESSMENT: 1. Status post left second toe amputation because of osteomyelitis. 2. Right heel chronic diabetic ulcer seems to be improving. 3. Insulin-dependent diabetes. 4. Hypertension. 5. Hyperlipidemia. 6. Morbid obesity. PLAN: The patient has been switched to p.o. antibiotics. Continue her on current insulin regimen. She is off of IV antibiotics. Discharge plan is for Tuesday. Liam Fernandez MD cc: [phone] TT: 06/16/2016 13:20:18 Confirmation # [id number] Dictation # [id number]
[2016-06-17] MEDS: Enoxaparin 40 mg Syringe SC SCH (05:36)
[2016-06-17] MEDS: Pantoprazole 40 mg EC Tab PO SCH (05:37)
[2016-06-17] MEDS: Levothyroxine 75 MCG TAB PO SCH (05:38)
[2016-06-17] MEDS: Insulin Reg-LOW-Coverage SC SCH ×4 (06:34→21:52)
[2016-06-17] MEDS: Insulin Human NPH/Reg 70/30 Vial(3 ml) SC SCH ×2 (06:34→18:56)
[2016-06-17] MEDS: Metoprolol Succinate 25 mg XL Tab PO SCH (08:12)
--- NOTE | 2016-06-17 08:14 | PN ---
DATE: 06/16/2016 ROOM: 320. SUBJECTIVE: This is a 80-year-old female with recent uncontrolled type 2 insulin-requiring diabetes now being followed closely for diabetes management. Of note, she underwent a recent toe amputa tion in the right second digit with underlying osteomyelitis and cellulitis of the . Hum ulin 70/30 units a.c. breakfast and 26 units a.c. . Continue to low dose correction ____ _ regular insulin as noted. Maliha Palmer MD cc: [phone] TT: 06/16/2016 16:40:54 Confirmation # [id number] Dictation # [id number] an
--- NOTE | 2016-06-17 09:33 | CP.PCM.PN ---
<BrandonHeydi - Last Filed: 06/17/16 09:32> Subjective - Date & Time of Evaluation Date of Evaluation: 06/17/16 Time of Evaluation: 09:32 - Subjective Subjective: 80 y/o female seen at bedside in TCU 8 days s/p right 2nd digit amputation with metatarsal head resection and also for left heel ulceration. Patient denies any acute events overnight. Her dressing remains clean,dry,intact,surgical shoes intact to both feet. Patient denies any n/f/c/v/d/sob. Objective - Vital Signs/Intake and Output Vital Signs (last 24 hours): Temp Pulse Resp BP Pulse Ox 97 F L 80 18 124/80 96 06/14/16 10:00 06/17/16 08:12 06/16/16 10:00 06/17/16 08:12 06/16/16 10:00 Intake and Output: 06/17/16 06/17/16 06:59 18:59 Intake Total 480 Output Total 400 Balance 80 - Medications Medications: Current Medications Acetaminophen (Tylenol 325mg Tab) 650 mg PO Q4 PRN PRN Reason: Pain, Mild (1-3) Last Admin: 06/12/16 22:31 Dose: 650 mg Atorvastatin Calcium (Lipitor) 20 mg PO HS [facility] Last Admin: 06/16/16 21:37 Dose: 20 mg Calcium Carbonate (Caltrate) 600 mg PO BID [facility] Last Admin: 06/16/16 18:00 Dose: 600 mg Cefpodoxime Proxetil (Vantin) 100 mg PO Q12 [facility] PRN Reason: Protocol Stop: 06/18/16 10:01 Last Admin: 06/16/16 21:38 Dose: 100 mg Collagenase (Santyl) 1 gm TOP DAILY [facility] Last Admin: 06/16/16 11:08 Dose: 1 cer Enoxaparin Sodium (Lovenox) 40 mg SC 0630 [facility] PRN Reason: Protocol Last Admin: 06/17/16 05:36 Dose: 40 mg Furosemide (Lasix) 20 mg PO DAILY [facility] Last Admin: 06/16/16 11:07 Dose: Not Given Ibuprofen (Motrin Tab) 400 mg PO Q6H PRN; Protocol PRN Reason: mild pain Last Admin: 06/16/16 21:38 Dose: 400 mg Insulin Human Regular (Humulin R Low) 0 units SC ACHS [facility] PRN Reason: Protocol Last Admin: 06/17/16 06:34 Dose: Not Given Levothyroxine Sodium (Synthroid) 75 mcg PO 0630 [facility] Last Admin: 06/17/16 05:38 Dose: 75 mcg Loperamide HCl (Imodium) 2 mg PO QID PRN PRN Reason: Diarrhea Last Admin: 06/16/16 21:37 Dose: 2 mg Loratadine (Claritin) 10 mg PO DAILY PRN PRN Reason: itchiness Last Admin: 06/16/16 21:36 Dose: 10 mg Lorazepam (Ativan) 2 mg PO HS [facility] PRN Reason: Protocol Last Admin: 06/16/16 21:35 Dose: 2 mg Losartan Potassium (Cozaar) 12.5 mg PO DAILY [facility] Last Admin: 06/16/16 11:06 Dose: Not Given Metoprolol Succinate (Toprol Xl) 25 mg PO BRK [facility] Last Admin: 06/17/16 08:12 Dose: 25 mg Nystatin (Nystop Topical Powder) 1 gm TOP BID [facility] Last Admin: 06/16/16 18:07 Dose: 1 applic Pantoprazole Sodium (Protonix Ec Tab) 40 mg PO 629 [facility] Last Admin: 06/17/16 05:37 Dose: 40 mg Potassium Chloride (K-Dur 20 Meq Er Tab) 20 meq PO DAILY [facility] Last Admin: 06/16/16 11:07 Dose: 20 meq Vitamin A (Vitamin A & D Oint Ud Foilpak) 1 ea TOP QID [facility] Last Admin: 06/16/16 21:38 Dose: 1 ea Vitamin D (Vitamin D 400 Intl Units Tab) 400 intlu PO DAILY [facility] Last Admin: 06/16/16 11:10 Dose: 400 intlu - Labs Labs: 06/14/16 06:00 06/14/16 06:00 - Constitutional Appears: Well, Non-toxic, No Acute Distress - Extremities Exam Additional comments: Vasc: palpable DP and PT pulses, CFT < 3 sec to all digits, TG wnl, nonpitting edema to right foot noted neuro: grossly diminished derm: nonpitting edema, no erythema, sutures intact, surgical incision site well coapted,no dehiscence, no drainage, no purulence, no active bleeding left heel- superficial ulceration with fibrotic base and hyperkeratotic border measuring 2cm x 2cm x 0.2 cm, mild serous drainage, no purulence, no acute clinical signs of infection ortho: no pain on palpation to surgical site - Neurological Exam Neurological Exam: Alert, Awake, Oriented x3 - Psychiatric Exam Psychiatric exam: Normal Affect, Normal Mood Assessment and Plan - Assessment and Plan (Free Text) Assessment: 80 y/o female seen at bedside 8 days s/p right 2nd digit amputation with metatarsal head resection , 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 Patterson labs and vitals reviewed, afebrile continue IV abx as per ID cleansed wounds with saline dressing to right foot remains c/d/i left foot cleansed with saline, applied santyl optifoam to L heel continue wearing multipodus boot while in bed podiatry will continue to monitor while patient remains in house <Brinda Patterson - Last Filed: 06/20/16 12:26> Objective - Vital Signs/Intake and Output Vital Signs (last 24 hours): Temp Pulse Resp BP Pulse Ox 98.1 F 79 18 111/59 L 98 06/18/16 06:00 06/18/16 10:50 06/18/16 06:00 06/18/16 10:55 06/18/16 06:00 - Labs Labs: 06/14/16 06:00 06/14/16 06:00 Attending/Attestation - Attestation I have personally seen and examined this patient.: Yes I have fully participated in the care of the patient.: Yes I have reviewed all pertinent clinical information, including history, physical exam and plan: Yes
[2016-06-17] MEDS: Potassium Chloride 20 mEq ER Tab PO SCH (09:39)
[2016-06-17] MEDS: Cefpodoxime (Vantin) 100 mg Tab PO SCH ×2 (09:42→21:53)
[2016-06-17] MEDS: Nystatin 100,000 Units/gm Topical Pow(15 gm) TOP SCH ×2 (09:42→18:03)
[2016-06-17] MEDS: Vitamins A & D Oint UD Foilpak TOP SCH ×4 (09:43→21:53)
[2016-06-17] MEDS: Cholecalciferol 400 Intl Units Tab PO SCH (09:43)
[2016-06-17] MEDS: Collagenase 250 Units/gm Ointment(30 gm) TOP SCH (11:39)
--- NOTE | 2016-06-17 13:21 | PN ---
DATE: 06/17/2016 SUBJECTIVE: The patient is a 80-year-old, seen and examined. Still lying in bed. States she feels a little tired today and feels dizzy. PHYSICAL EXAMINATION: VITAL SIGNS: She is afebrile, pulse 81, respirations 18, blood pressure 95/44. LUNGS: Bilateral good airflow, no rhonchi or crackle. HEART: S1, S2 audible. ABDOMEN: Soft, obese, nontender, no rebound, no guarding. NEUROLOGIC: The patient is awake and alert, communicative, walks with a walker with assistance with physical therapist. ASSESSMENT: 1. Left second toe osteomyelitis, status post amputation. 2. Hypertension, now hypotensive. 3. Insulin-dependent diabetes. 4. Deconditioning and difficulty walking. 5. Diarrhea that has resolved, probably secondary to antibiotics. 6. Hypothyroidism that is stable. PLAN: Currently patient is on Vantin. She is on metoprolol 25 daily. We will continue that. She i s on losartan 12.5 and she is also getting Lasix 20 mg daily. We will continue that. Continue her o n DVT prophylaxis. The patient is scheduled to be discharged tomorrow. Will reevaluate the patient in a.m. Liam Fernandez MD cc: [phone] TT: 06/17/2016 13:21:23 Confirmation # [id number] Dictation # [id number] [email or web address]
--- NOTE | 2016-06-17 18:42 | PN ---
DATE: 06/17/2016 ROOM: 320. SUBJECTIVE: This is a 80-year-old female with recent uncontrolled type 2 insulin-requiring diabetes, now being followed closely for metabolic management. She underwent a recent right toe, second digit amputation for underlying osteomyelitis and cellulitis as noted thereof. Her glycemic levels are fl uctuating, but much improved and have ranged from 120-174 mg/dL. Her latest chemistry showed a BUN o f 35, sodium 139, potassium 4.0, chloride 102, CO2 27, glucose 153 and creatinine 1.2. So, at this time, we will continue the same dosing regimen of the premixed insulin regimen as given t wice daily as ordered. We will continue the low-dose correction scale using regular insulin as order ed. We will titrate incrementally as indicated to optimize metabolic control. We will follow. Maliha Palmer MD cc: [phone] TT: 06/17/2016 18:41:46 Confirmation # [id number] Dictation # [id number] sangeeta
[2016-06-18] MEDS: Levothyroxine 75 MCG TAB PO SCH (06:17)
[2016-06-18] MEDS: Enoxaparin 40 mg Syringe SC SCH (06:17)
[2016-06-18] MEDS: Pantoprazole 40 mg EC Tab PO SCH (06:17)
[2016-06-18 06:32] VITALS: TEMP 98.1; O2SAT 98
[2016-06-18] MEDS: Insulin Human NPH/Reg 70/30 Vial(3 ml) SC SCH ×2 (06:38→16:33)
[2016-06-18] MEDS: Insulin Reg-LOW-Coverage SC SCH ×3 (06:40→16:28)
[2016-06-18] MEDS: Metoprolol Succinate 25 mg XL Tab PO SCH (08:35)
[2016-06-18] MEDS: Collagenase 250 Units/gm Ointment(30 gm) TOP SCH (10:17)
[2016-06-18] MEDS: Nystatin 100,000 Units/gm Topical Pow(15 gm) TOP SCH ×2 (10:19→17:59)
[2016-06-18] MEDS: Vitamins A & D Oint UD Foilpak TOP SCH ×3 (10:19→17:59)
[2016-06-18] MEDS: Cholecalciferol 400 Intl Units Tab PO SCH (10:20)
[2016-06-18] MEDS: Potassium Chloride 20 mEq ER Tab PO SCH (10:52)
[2016-06-18 10:55] VITALS: BP 111/59; PULSE 79
--- NOTE | 2016-06-18 15:36 | PN ---
DATE: 06/18/2016 A 80-year-old female seen at bedside in transitional care unit status post right second digit amputat ion with metatarsal head resection. She is also suffering from a chronic left heel ulceration. The patient states she has been afebrile and is offering no new complaints. She states she is set for di scharge today. VITAL SIGNS: The patient's temperature is 98.1, blood pressure of 121/63, pulse rate of 83, respirat ory rate of 18. LABORATORY DATA: Reveal a white count of 5.9, hemoglobin of 9.8, hematocrit of 30, platelet count of 192. OBJECTIVE: Operative site on the right foot presents with sutures intact. There is no drainage. Th ere is no dehiscence. No signs of active bleeding. The area is not cellulitic and shows no signs of ascending cellulitis. There is a chronic left heel ulceration on the left heel. Base of the wound is primarily fibrotic with hyperkeratotic tissue border. The wound measures approximately 2.1 cm x 2 .2 cm x 0.2 cm. There is noted to be minimal serous drainage. There is no purulence, no malodor. T he wound does not probe to tendon or bone, and there are no acute signs of bacterial infection noted. ASSESSMENT: Status post right second digit amputation with accompanying metatarsal head resection, c hronic left heel ulceration secondary to longstanding uncontrolled diabetes. PLAN: The patient was evaluated and his chart was reviewed. The surgical site was dressed with Beta dine and a dry sterile dressing. The left heel was cleansed with normal sterile saline and we will a pply Santyl ointment, Xeroform and a dry sterile dressing. The patient is set for discharge today. She will be discharged home and follow up at the wound center. We will keep a dry sterile dressing o n her operative foot, and her left heel wound needs to be changed daily with an application of saline cleanse, Santyl ointment, Xeroform and a dry sterile dressing. The patient was told to call the off ice immediately or go to the Emergency Room if she experiences fever, chills, nausea or vomiting when discharged. Robby Owusu DPM cc: [phone] TT: 06/18/2016 15:35:07 Confirmation # [id number] Dictation # [id number] mn
--- NOTE | 2016-06-18 21:41 | DS ---
The patient is 80 years old who was admitted with left foot swelling, and she was seen by Dr. Patterson in wound care center. Her left 2nd toe is swollen and red, so had MRI done; that shows osteomyeliti s. The patient ended up having amputation. She also has a chronic wound on her right heel. So, the patient is on acute care floor where she has amputation done, and transferred to TCU for wound care and continuation of antibiotic. The patient will finished her course of IV antibiotics. It was [facility] to [facility]. She received a total of 14 days; did well. No fever, no chills. Did have an episode of diarrhea, probably secondary to antibiotic, that was limiting. Stool for C. difficile was negati ve. On examination, she is awake and alert, communicative. VITAL SIGNS: She is afebrile, pulse 79, respirations 18, her blood pressure 110/59. LUNGS: Bilateral fair airflow. No rhonchi or crackle. HEART: S1, S2 audible. No murmur. ABDOMEN: Soft, nontender, no rebound, no guarding. Obese, no hepatosplenomegaly. NEUROLOGICALLY: The patient is awake and alert; able to communicate. Bilateral legs: No edema. Bilateral Feet: They are in dressing. LABORATORY EXAMINATION: WBC is 5.9, hemoglobin 9.8, hematocrit 30, platelets 192. Chemistry: Blood sugar is 246. Stool for C. diff sent on 06/12 is negative for C. difficile. ASSESSMENT AND PLAN: 1. Left 2nd toe amputation secondary to osteomyelitis. 2. Hypertension. 3. Hyperlipidemia. 4. Insulin-dependent diabetes. 5. Morbid obesity. 6. Deconditioning and difficulty walking. PLAN: The patient is being discharged home on potassium 20 mEq daily, Protonix 40 daily, metoprolol 25 in the morning, Cozaar 25 daily, levothyroxine 75 mcg daily. She is going to be on 70/30 as 20 un its in the evening and 45 units in the morning, Lasix 40 daily, Lipitor 20 mg daily, and she will fol low up with Dr. Patterson next Tuesday, and [facility] visiting nurses will monitor her wound at home. Liam Fernandez MD cc: [phone] TT: 06/18/2016 21:40:32 jn
--- NOTE | 2016-06-20 20:32 | PN ---
DATE: 06/18/2016 ROOM: ____. This is a 80-year-old female with recent uncontrolled type 2 insulin-requiring diabetes, presenting h ere with acute osteomyelitis and ____ on the right toe and now receiving IV antibiotics and also bein g followed closely for metabolic management. Her glycemic levels are fluctuating and have ranged fro m 233-291 and 291 mg/dL. Her latest chemistry showed a BUN of 32, ____, chloride 102, CO2 of 27, glu cose 153 and creatinine 1.2. So, at this time, we will continue the same premixed insulin regimen as given with Humulin 70/30 give n as 44 units before meals breakfast and 24 units before meals dinner as ordered. We will titrate in crementally as indicated to optimize metabolic control. We will follow and advise accordingly. Maliha Palmer MD cc: [phone] TT: 06/18/2016 17:09:19 Confirmation # [id number] Dictation # [id number] sn
== END 2016-06-18 19:34 | disposition home or self-care (01) | DRG 556 ==
LOC: TRCU 19:44
PROVIDERS: ADMIT Internal Medicine; ATTEND Internal Medicine
PROC: F07Z8FZ Transfer Training Treatment using Assistive, Adaptive, Supportive or Protective Equipment (ICD-10-PCS; 2016-06-12)
PROC: F07Z5ZZ Bed Mobility Treatment (ICD-10-PCS; 2016-06-12)
PROC: F07L6YZ Therapeutic Exercise Treatment of Musculoskeletal System - Lower Back / Lower Extremity using Other Equipment (ICD-10-PCS; 2016-06-12)
PROC: F07Z9FZ Gait Training/Functional Ambulation Treatment using Assistive, Adaptive, Supportive or Protective Equipment (ICD-10-PCS; principal; 2016-06-14)
DX: R26.2 Difficulty in walking, not elsewhere classified (principal); E11.69 Type 2 diabetes mellitus with other specified complication; E11.22 Type 2 diabetes mellitus with diabetic chronic kidney disease; M86.8X7 Other osteomyelitis, ankle and foot; Z47.81 Encounter for orthopedic aftercare following surgical amputation; Z89.421 Acquired absence of other right toe(s); E11.40 Type 2 diabetes mellitus with diabetic neuropathy, unspecified; E66.01 Morbid (severe) obesity due to excess calories; L97.429 Non-pressure chronic ulcer of left heel and midfoot with unspecified severity; E11.51 Type 2 diabetes mellitus with diabetic peripheral angiopathy without gangrene; E11.622 Type 2 diabetes mellitus with other skin ulcer; E78.5 Hyperlipidemia, unspecified; I12.9 Hypertensive chronic kidney disease with stage 1 through stage 4 chronic kidney disease, or unspecified chronic kidney disease; N18.9 Chronic kidney disease, unspecified; M19.90 Unspecified osteoarthritis, unspecified site; E03.9 Hypothyroidism, unspecified; E11.65 Type 2 diabetes mellitus with hyperglycemia; R19.7 Diarrhea, unspecified; M79.643 Pain in unspecified hand; B36.9 Superficial mycosis, unspecified; Z68.38 Body mass index [BMI] 38.0-38.9, adult; Z79.4 Long term (current) use of insulin

== ENCOUNTER 2017-03-23 09:37 | Inpatient (IN) | payer MEDICARE, OTHER ==
[2017-03-23 10:05] VITALS: BMI 38.2
--- NOTE | 2017-03-23 10:48 | RAD ---
HISTORY: admission COMPARISON: No prior. FINDINGS: LUNGS: No active pulmonary disease. PLEURA: No significant pleural effusion identified, no pneumothorax apparent. CARDIOVASCULAR: Normal. OSSEOUS STRUCTURES: No significant abnormalities. VISUALIZED UPPER ABDOMEN: Normal. OTHER FINDINGS: None. IMPRESSION: No active disease.
--- NOTE | 2017-03-23 10:52 | ED PDOC ---
Arrival/HPI - General Chief Complaint: Lower Extremity Problem/Injury Time Seen by Provider: 03/23/17 09:59 Historian: Patient, Family - History of Present Illness Narrative History of Present Illness (Text): 03/23/17 10:52 81yo female with PMhx of Diabetes, hypertension, CAD with cardiac catherization referred to ED by Dr. Patterson for admission. The grand daughter who is by the bedside states patient started having pus discharge from the ulccer on her heel 4days ago. She usually sees Dr. Patterson and was seen SECURITIES RESEARCH ANALYST. States wound was cleaned and dress and she is referred to ED for IV abx and debridment. Denies fever, chills, any other complaint. Past Medical History - Provider Review Nursing Documentation Reviewed: Yes - Infectious Disease Hx of Infectious Diseases: None - Tetanus Immunization Tetanus Immunization: Unknown - Cardiac Hx Cardiac Disorders: Yes Hx Hypertension: Yes - Pulmonary Hx Respiratory Disorders: No - Neurological Hx Neurological Disorder: No - HEENT Hx HEENT Disorder: No - Renal Hx Renal Disorder: No - Endocrine/Metabolic Hx Diabetes Mellitus Type 2: Yes Hx Hypothyroidism: Yes - Hematological/Oncological Hx Blood Disorders: No - Integumentary Hx Dermatological Disorder: No - Musculoskeletal/Rheumatological Hx Arthritis: Yes - Gastrointestinal Hx Gastrointestinal Disorders: No - Genitourinary/Gynecological Hx Genitourinary Disorders: No - Psychiatric Hx Psychophysiologic Disorder: Yes Hx Depression: Yes Hx Substance Use: No - Surgical History Hx Amputation: Yes (LEFT GREAT TOE, RIGHT 2ND TOE) Hx Musculoskeletal Surgery: Yes - Anesthesia Hx Anesthesia: Yes Hx Anesthesia Reactions: (not known) Hx Malignant Hyperthermia: No - Suicidal Assessment Feels Threatened In Home Enviroment: No Family/Social History - Physician Review Nursing Documentation Reviewed: Yes Family/Social History: Unknown Family HX Smoking Status: Never Smoked Hx Alcohol Use: No Hx Substance Use: No Hx Substance Use Treatment: No Allergies/Home Meds Allergies/Adverse Reactions: Allergies Penicillins Allergy (Verified 03/23/17 10:27) ITCHING Home Medications: Home Meds Medication Instructions Recorded Confirmed Acetaminophen [Tylenol 325mg tab] 650 mg PO Q4 PRN 12/27/15 03/23/17 Amino Acids/Protein Hydrolys 30 ml PO DAILY 12/27/15 03/23/17 [Pro-Stat Profile Liquid] Insulin Human NPH/Reg [HumuLIN 45 units SC QAM 12/27/15 03/23/17 70/30 (NPH/Reg)] Insulin NPH Hum/Reg Insulin Hm 20 units SC QPM 02/24/16 03/23/17 [Humulin 70-30 Vial] Metoprolol Succinate [Toprol XL] 25 mg PO DAILY 02/24/16 03/23/17 Multivit-Min/FA/Lycopen/Lutein 1 each PO DAILY 02/24/16 03/23/17 [Centrum Silver Tablet] Losartan [Cozaar] 25 mg PO DAILY 06/07/16 03/23/17 Aspirin [Portal Aspirin] 81 mg PO DAILY 03/23/17 03/23/17 QUEtiapine [SEROquel] 25 mg PO HS 03/23/17 03/23/17 Review of Systems - Physician Review All systems were reviewed & negative as marked: Yes - Review of Systems Constitutional: Normal Eyes: Normal ENT: Normal Respiratory: Normal Cardiovascular: Normal Gastrointestinal: Normal Genitourinary Female: Normal Musculoskeletal: Arthralgias (Left heel infection) Skin: Normal Neurological: Normal Endocrine: Normal Hemo/Lymphatic: Normal Psychiatric: Normal Physical Exam Vital Signs Reviewed: Yes Vital Signs Pulse Resp BP Pulse Ox 03/23/17 11:23 81 18 150/78 100 Temperature: Afebrile Blood Pressure: Normal Pulse: Regular Respiratory Rate: Normal Appearance: Positive for: Well-Appearing, Non-Toxic, Comfortable Pain Distress: None Mental Status: Positive for: Alert and Oriented X 3 - Systems Exam Head: Present: Atraumatic, Normocephalic Pupils: Present: PERRL Extroacular Muscles: Present: EOMI Conjunctiva: Present: Normal Mouth: Present: Moist Mucous Membranes Neck: Present: Normal Range of Motion Respiratory/Chest: Present: Clear to Auscultation, Good Air Exchange. No: Respiratory Distress, Accessory Muscle Use Cardiovascular: Present: Regular Rate and Rhythm, Normal S1, S2. No: Murmurs Abdomen: Present: Normal Bowel Sounds. No: Tenderness, Distention, Peritoneal Signs Back: Present: Normal Inspection Upper Extremity: Present: Normal Inspection. No: Cyanosis, Edema Lower Extremity: Present: Other (Clean dressing noted in place to left foot). No: Edema Neurological: Present: GCS=15, CN II-XII Intact, Speech Normal Skin: Present: Warm, Dry, Normal Color. No: Rashes Psychiatric: Present: Alert, Oriented x 3, Normal Insight, Normal Concentration Medical Decision Making ED Course and Treatment: 03/23/17 18:20 Pt with history of diabetic foot, with purulent discharge x 4days. Referred to ED for IV abx and debridment. Case was DW Dr. Fernandez and pt was admitted. - Lab Interpretations Lab Results: 03/23/17 10:40 03/23/17 10:40 Lab Results 03/23/17 10:43: POC Glucose (mg/dL) 89 03/23/17 10:40: Sodium 144, Potassium 4.6, Chloride 102, Carbon Dioxide 31, Anion Gap 15, BUN 27 H, Creatinine 1.1, Est GFR ( Amer) 58, Est GFR (Non- Af Amer) 48, Random Glucose 92, Calcium 10.3, Total Bilirubin 0.6, AST 56 H, ALT 48, Alkaline Phosphatase 238 H, Total Protein 8.1, Albumin 4.1, Globulin 4.0 , Albumin/Globulin Ratio 1.0 L 03/23/17 10:40: PT 12.9 H, INR 1.12 H, APTT 32.4 03/23/17 10:40: WBC 8.5 D, RBC 3.99, Hgb 12.5, Hct 38.3, MCV 96.0, MCH 31.3, MCHC 32.6, RDW 13.1, Plt Count 207, MPV 12.0 H, Gran % 60.6, Lymph % (Auto) 27.2 , Wilkes % (Auto) 8.9 H, Eos % (Auto) 3.1, Baso % (Auto) 0.2, Gran # 5.14, Lymph # 2.3, Wilkes # 0.8 H, Eos # 0.3, Baso # 0.02 - RAD Interpretation Radiology Orders: 03/23/17 10:06 CHEST PORTABLE [RAD] Stat - Medication Orders Current Medication Orders: Acetaminophen (Tylenol 325mg Tab) 650 mg PO Q4 PRN PRN Reason: Pain, Mild (1-3) Aspirin (Ecotrin) 81 mg PO DAILY MAAME Atorvastatin Calcium (Lipitor) 20 mg PO DIN [facility] Last Admin: 03/23/17 17:50 Dose: 20 mg Insulin Human Regular (Humulin R Med) 0 units SC ACHS [facility] PRN Reason: Protocol Last Admin: 03/23/17 17:50 Dose: 1 units MAR Blood Glucose Document 03/23/17 17:50 GM (Rec: 03/23/17 17:51 GM [id number]) Blood Glucose Finger Stick Blood Glucose (70-120) 198 Subcutaneous Administrations Document 03/23/17 17:50 GM (Rec: 03/23/17 17:51 GM [id number]) Charges for Administration # of Subcutaneous Administrations 1 Levothyroxine Sodium (Synthroid) 75 mcg PO DAILY MAAME Lorazepam (Ativan) 2 mg PO HS PRN; Protocol PRN Reason: Anxiety Losartan Potassium (Cozaar) 25 mg PO DAILY MAAME Metoprolol Succinate (Toprol Xl) 25 mg PO DAILY MAAME Pantoprazole Sodium (Protonix Ec Tab) 40 mg PO 30 MAAME Quetiapine Fumarate (Seroquel) 25 mg PO HS PRN; Protocol PRN Reason: Sleep Discontinued Medications Vancomycin HCl (Vancomycin 1gm) 1 gm in 250 mls @ 167 mls/hr IVPB STAT STA PRN Reason: Protocol Stop: 03/23/17 12:59 Last Admin: 03/23/17 12:12 Dose: 167 mls/hr eMAR Start Stop Document 03/23/17 12:12 OCS (Rec: 03/23/17 12:12 [email or web address] Intravenous Solution Start Date 03/23/17 Start Time 12:12 End Date 03/23/17 End time 13:42 Total Infusion Time 90 Disposition/Present on Arrival - Present on Arrival Any Indicators Present on Arrival: No History of DVT/PE: No History of Uncontrolled Diabetes: Yes Urinary Catheter: No History of Decub. Ulcer: Yes History Surgical Site Infection Following: None - Disposition Have Diagnosis and Disposition been Completed?: Yes Diagnosis: Infected wound Disposition: HOSPITALIZED Disposition Time: 11:30 Patient Problems: Current Active Problems Problem Status Onset Infected wound Acute Condition: FAIR
[2017-03-23 10:57] LABS: BASO # 0.02 K/mm3 (0.0-2.0); BASO % 0.2 % (0.0-3.0); EOS # 0.3 (0.0-0.7); EOS % 3.1 % (1.5-5.0); GRAN # 5.14 (1.4-6.5); GRAN % 60.6 % (50.0-68.0); HEMOGLOBIN 12.5 g/dL (12.0-16.0); LYMPH # 2.3 (1.2-3.4); LYMPH % 27.2 % (22.0-35.0); MEAN CORPUSCULAR HEMOGLOBIN 31.3 pg (25.0-35.0); MEAN CORPUSCULAR HGB CONC 32.6 g/dl (31.0-37.0); MONO # 0.8 (0.1-0.6); MONO % 8.9 % (1.0-6.0); RBC 3.99 10^6/uL (3.5-6.1); RED CELL DISTRIBUTION WIDTH 13.1 % (11.5-14.5); WHITE BLOOD COUNT 8.5 10^3/ul (4.5-11.0)
[2017-03-23 11:05] LABS: ALBUMIN 4.1 g/dL (3.0-4.8); CALCIUM 10.3 mg/dL (8.4-10.5)
[2017-03-23 11:26] LABS: INR 1.12 (0.93-1.08); PARTIAL THROMBOPLASTIN TIME 32.4 Seconds (25.1-36.5); PROTHROMBIN TIME 12.9 SECONDS (9.4-12.5)
[2017-03-23] MEDS ORDERED: Vancomycin 1gm in NS 250ml 1 GM/250 ML BAG IVPB STA (11:30)
[2017-03-23] MEDS: Insulin Reg-MEDIUM-Coverage SC SCH ×2 (17:50→22:09)
--- NOTE | 2017-03-24 02:55 | HP ---
HISTORY OF PRESENT ILLNESS: The patient is a 81 years old, known to me from office practice. The patient was seen by Dr. Patterson today. According to her granddaughter who is the nurse in [facility] [place] that she has a little scab on her left heel and when she tried to manipulate and squeeze, a lot of pus came out. She has been watching it for the last three days, so today she was brought to Dr. Patterson who debrided the scab and she was found to have a lot of granulation tissue with tissue, so she is being admitted for IV antibiotics. Denies any fever or chills. No history of nausea or vomiting. No history of diarrhea. The patient has been very compliant with her medication lately and states her blood sugar has been running well. PAST MEDICAL HISTORY: Significant for; 1. Non-insulin dependent diabetes. 2. Hypertension. 3. Hyperlipidemia. 4. History of fall, status post left greater trochanteric fracture, did not require any intervention. 5. Sacral decubitus that has healed. 6. 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 7. Peripheral vascular disease. 8. Deconditioning and difficulty walking. 9. Hyperlipidemia. 10. Intermittent bilateral leg swelling. 11. Hypothyroidism. 12. Right second toe amputation. ALLERGIES: SHE IS ALLERGIC TO PENICILLIN. MEDICATIONS AT HOME: She is on Seroquel 25 mg at bedtime, aspirin 81 daily, Lasix 40 mg daily, omeprazole, Protonix 40 daily, metoprolol 25 daily, losartan 25 daily, levothyroxine 75 mcg daily, lorazepam 2 mg at bedtime, NPH 20 units q.p.m. and 45 units q.a.m., and Lipitor 20 mg daily. SOCIAL HISTORY: She lives with her daughter. Denies smoking or drinking. She walks little distance at a time. PHYSICAL EXAMINATION: GENERAL: She is awake, alert, oriented, and communicative. VITAL SIGNS: She is afebrile, pulse 89, respirations 20, blood pressure 127/78. LUNGS: Bilateral good airflow. No rhonchi or crackles. HEART: S1 and S2 audible. ABDOMEN: Soft and nontender. No rebound. No guarding. NEUROLOGIC: The patient is awake, alert, oriented, and communicative. EXTREMITIES: Her left heel is in the dressing after debridement done by Dr. Patterson. LABORATORY DATA: WBC is 8.5, hemoglobin is 12.5, hematocrit 38, platelet of 207. PT 12.9, INR 1.12. Chemistry: Sodium 144, potassium 4.6, chloride 102, CO2 of 31, BUN 27, creatinine 1.1, blood sugar of 198. LFTs are within normal limits. ASSESSMENT: 1. Left heel cellulitis. 2. Peripheral vascular disease. 3. Non-insulin dependent diabetes. 4. Hypertension. 5. Hyperlipidemia. PLAN: The patient will resume her medication. She has been started on vancomycin and start her on meropenem and Dr. Patterson for consult. We will follow up this patient in the a.m. Liam Fernandez MD
[2017-03-24] MEDS: Aztreonam 1 Gm in NS 100mL 100 ML IVPB SCH ×3 (07:15→21:08)
[2017-03-24 07:46] LABS: CALCIUM 8.9 mg/dL (8.4-10.5)
[2017-03-24 08:12] LABS: ALBUMIN 3.3 g/dL (3.0-4.8)
[2017-03-24] MEDS: Insulin Reg-MEDIUM-Coverage SC SCH ×4 (08:14→21:39)
[2017-03-24] MEDS: Pantoprazole 40 mg EC Tab PO SCH (08:18)
[2017-03-24] MEDS: Levothyroxine 75 MCG TAB PO SCH (09:17)
[2017-03-24] MEDS: Linezolid 600 mg in D5W 300 ml 600 MG/300 ML BAG IVPB SCH ×2 (09:24→21:53)
[2017-03-24] MEDS ORDERED: Metoprolol Succinate 25 mg XL Tab PO SCH (10:00)
[2017-03-24] MEDS ORDERED: Insulin Human NPH/Reg 70/30 Vial(3 ml) SC SCH ×2 (10:00→18:00)
--- NOTE | 2017-03-24 12:53 | CP.PCM.CON ---
History of Present Illness - History of Present Illness History of Present Illness: 81 year old female with PMH of obesity with BMI 38, osteoarthritis, HTN, DM, hypothyroidism, S/P left toe amputation, S/P right hip surgery was sent in by her Diet Counselor because of worsening heel ulcer on her left foot. It has been draining pus for the past 3-4 days and was cleaned as an outpatient by Podiatry. She denies walking barefoot on soil, no fever or chills, no animal contacts with the foot, no soaking of feet in water, no nausea or vomiting, no headache or dizziness, no chest pain, no SOB, no abdominal pain, no diarrhea, no dysuria. Infectious Diseases consult is requested to further evaluate and manage. Review of Systems - Review of Systems All systems: reviewed and no additional remarkable complaints except (as per hPI ) Past Patient History - Infectious Disease Hx of Infectious Diseases: None - Tetanus Immunizations Tetanus Immunization: Unknown - Past Medical History & Family History Past Medical History?: Yes - Past Social History Smoking Status: Never Smoked - CARDIAC Hx Cardiac Disorders: Yes Hx Hypertension: Yes - PULMONARY Hx Respiratory Disorders: No - NEUROLOGICAL Hx Neurological Disorder: No - HEENT Hx HEENT Problems: No - RENAL Hx Chronic Kidney Disease: No - ENDOCRINE/METABOLIC Hx Diabetes Mellitus Type 2: Yes Hx Hypothyroidism: Yes - HEMATOLOGICAL/ONCOLOGICAL Hx Blood Disorders: No - INTEGUMENTARY Hx Dermatological Problems: No - MUSCULOSKELETAL/RHEUMATOLOGICAL Hx Arthritis: Yes - GASTROINTESTINAL Hx Gastrointestinal Disorders: No - GENITOURINARY/GYNECOLOGICAL Hx Genitourinary Disorders: No - PSYCHIATRIC Hx Psychophysiologic Disorder: Yes Hx Depression: Yes Hx Substance Use: No - SURGICAL HISTORY Hx Amputation: Yes (LEFT GREAT TOE, RIGHT 2ND TOE) Hx Musculoskeletal Surgery: Yes - ANESTHESIA Hx Anesthesia: Yes Hx Anesthesia Reactions: (not known) Hx Malignant Hyperthermia: No Meds Allergies/Adverse Reactions: Allergies Allergy/AdvReac Type Severity Reaction Status Date / Time Penicillins Allergy ITCHING Verified 03/23/17 10:27 - Medications Medications: Current Medications Acetaminophen (Tylenol 325mg Tab) 650 mg PO Q4 PRN PRN Reason: Pain, Mild (1-3) Last Admin: 03/23/17 22:14 Dose: 650 mg Aspirin (Ecotrin) 81 mg PO DAILY MAAME Atorvastatin Calcium (Lipitor) 20 mg PO DIN MAAME Last Admin: 03/23/17 17:50 Dose: 20 mg Aztreonam (Azactam 1 Gm) 100 mls @ 100 mls/hr IVPB Q8 MAAME PRN Reason: Protocol Stop: 03/31/17 06:46 Linezolid (Zyvox 600mg/300ml D5w) 600 mg in 300 mls @ 200 mls/hr IVPB Q12 MAAME PRN Reason: Protocol Stop: 03/31/17 10:01 Insulin Human Regular (Humulin R Med) 0 units SC ACHS MAAME PRN Reason: Protocol Last Admin: 03/23/17 22:09 Dose: Not Given Levothyroxine Sodium (Synthroid) 75 mcg PO DAILY MAAME Lorazepam (Ativan) 2 mg PO HS PRN; Protocol PRN Reason: Anxiety Losartan Potassium (Cozaar) 25 mg PO DAILY MAAME Metoprolol Succinate (Toprol Xl) 25 mg PO DAILY MAAME Pantoprazole Sodium (Protonix Ec Tab) 40 mg PO 0730 MAAME Quetiapine Fumarate (Seroquel) 25 mg PO HS PRN; Protocol PRN Reason: Sleep Last Admin: 03/23/17 23:46 Dose: 25 mg Physical Exam - Constitutional Appears: Non-toxic - Head Exam Head Exam: NORMAL INSPECTION - ENT Exam ENT Exam: Mucous Membranes Moist - Neck Exam Neck exam: Negative for: Lymphadenopathy, Meningismus - Respiratory Exam Respiratory Exam: Decreased Breath Sounds - Cardiovascular Exam Cardiovascular Exam: +S1, +S2 - GI/Abdominal Exam GI & Abdominal Exam: Soft. absent: Tenderness Results - Vital Signs Recent Vital Signs: Last Vital Signs Temp 98.4 F 03/23/17 16:00 Pulse 89 03/23/17 16:00 Resp 20 03/23/17 16:00 BP 127/78 03/23/17 16:00 Pulse Ox 97 03/23/17 16:00 - Labs Result Diagrams: 03/23/17 10:40 03/24/17 06:00 Labs: Laboratory Results - last 24 hr 03/23/17 03/23/17 16:29 21:27 POC Glucose (mg/dL) 198 H 241 H Assessment & Plan - Assessment and Plan (Free Text) Plan: Assessment left heel infected ulcer with cellulitis R/O osteomyelitis history of 2nd right toe and metatarsal head osteomyelitis S/P surgery chronic renal failure obesity with BMI 38 osteoarthritis HTN DM hypothyroidism S/P left toe amputation S/P right hip surgery Plan started patient on Zyvox and Azactam pending blood and wound cx; patient to undergo MRI as well and will await results will monitor clinically
--- NOTE | 2017-03-24 13:29 | RAD ---
PROCEDURE: Left Foot Radiographs. HISTORY: heel ulcer left COMPARISON: None. FINDINGS: BONES: There is no evidence of osteomyelitis of the calcaneus. JOINTS: Chronic degenerative changes are seen in the toes. The 1st toe is been amputated. Degenerative changes are also seen in the midfoot. SOFT TISSUES: Normal. OTHER FINDINGS: None. IMPRESSION: No evidence of acute osteomyelitis
--- NOTE | 2017-03-24 13:36 | MRI ---
PROCEDURE: MRI of the left foot without contrast HISTORY: heel ulcer left COMPARISON: TECHNIQUE: MRI of the left foot was performed multiple planes using multiple pulse sequences. FINDINGS: There is no marrow edema to suggest osteomyelitis. Specifically there is no evidence of calcaneal osteomyelitis. There is a soft tissue ulcer in the heel. The Achilles tendon attachment is unremarkable. There is some thickening and abnormal signal intensity of the plantar fascia at the calcaneal attachment. There is also a calcaneal spur. Degenerative changes are seen in the midfoot. IMPRESSION: No evidence of acute osteomyelitis
[2017-03-24] MEDS: Non Formulary Medication (Multivit-Min/Fa/Lycopen/Lutein [Centrum Silver Tablet] 1 EACH) PO SCH (17:24)
[2017-03-24] MEDS: Potassium Chloride 20 mEq ER Tab PO SCH (17:31)
--- NOTE | 2017-03-24 18:22 | US ---
PROCEDURE: Lower extremity MCKENNA exam HISTORY: Peripheral vascular disease with pain and ulceration. Diabetes. PHYSICIAN(S): Grant De La Rosa MD. FINDINGS: The resting MCKENNA's are normal: right, 1.08and left, 1 7. The brachial systolic pressures are symmetric. The low thigh pressures and waveforms are relatively normal. The calf PVR waveforms augment normally. No significant gradients are noted across the thighs. The ankle and metatarsal waveforms are relatively normal and symmetric. No significant pressure gradients are noted across the lower legs. IMPRESSION: 1. Normal MCKENNA and PVR examination at rest.
--- NOTE | 2017-03-24 18:47 | PN ---
DATE: SUBJECTIVE: The patient is a 81-year-old, seen and examined, offers no complaints. No nausea No vomiting. No diarrhea. PHYSICAL EXAMINATION: VITAL SIGNS: She is afebrile. pulse 65, respirations 20, and blood pressure 98/47. HEAD AND NECK: Nonicteric sclerae. [place] conjunctivae. HEART: S1 and S2 audible. ABDOMEN: Soft, nontender. No rebound. No guarding. NEUROLOGIC: The patient is awake, alert, oriented, able to communicate. LABORATORY DATA: ESR is 55. Chemistry, sodium 141, potassium 3.7, chloride 106, CO2 of 25, BUN 29, and creatinine 1.1. Blood sugar is 83. The patient had MRI of the lower extremity done, that shows no evidence of acute osteomyelitis. ASSESSMENT: 1. Left heel cellulitis. 2. Insulin-dependent diabetes. 3. Hypertension, but currently hypotensive. 4. Peripheral vascular disease. 5. Hyperlipidemia. PLAN: The patient's blood sugar is running low. I will cut down her morning insulin from 45 to 35 and monitor blood sugar. Continue antibiotics. Might be a candidate of TCU to complete her course of antibiotics and wound care. Liam Fernandez MD
[2017-03-24] MEDS: Metoprolol Succinate 25 mg XL Tab PO SCH (21:47)
--- NOTE | 2017-03-24 22:00 | CON ---
DATE: 03/24/2017 REFERRING MD: Dr. Fernandez. REASON FOR CONSULTATION: Evaluation of the patient with an elevated BUN who presents for IV antibiotic therapy for left heel infection and cellulitis. The patient is unknown to me. HISTORY OF PRESENT ILLNESS: The patient is a pleasant 81-year-old white female with a left heel infection and cellulitis, coming in for IV antibiotic therapy, history of NIDDM, now on insulin, history of hypertension, hyperlipidemia, history of peripheral vascular disease, past history of mild renal insufficiency, history of hypothyroidism, history of cataract surgery. The patient presents to the hospital for IV antibiotic therapy. On admission, her BUN had been mildly elevated in the 27-29 range. Creatinine has been stable at 1.1. We are asked to evaluate the patient for elevated BUN and to monitor her renal parameters during her time that she will be receiving IV antibiotic therapy. PAST MEDICAL HISTORY: Significant for NIDDM, currently on insulin; hypertension; hyperlipidemia; history of peripheral vascular disease, status post amputation of her left big toe and right second toe. Past history of mild renal insufficiency. History of hypothyroidism, status post partial thyroid resection. History of bilateral cataract surgery. Baseline creatinine in the 1.1 range. MEDICATIONS AT HOME: Include that of Seroquel, aspirin, p.o. Lasix, Protonix, Centrum Silver, Toprol, losartan, Synthroid, Ativan, insulin, Lipitor, Tylenol p.r.n. and potassium. Current medications in hospital include that of Ativan, Azactam, losartan, Ecotrin, insulin, Lipitor, Protonix, Seroquel, Synthroid, Toprol, Tylenol p.r.n., and Zyvox. ALLERGIES: THE PATIENT IS ALLERGIC TO PENICILLIN. SOCIAL HISTORY: No history of cigarette smoking. No history of alcohol use. FAMILY HISTORY: Father of complications of diabetes. Mother of heart disease. REVIEW OF SYSTEMS: GENERAL: The patient states appetite and weight have been stable. ENT: Denies any hearing or visual problems. No history of diabetic retinopathy. PULMONARY: No history of COPD, bronchitis, emphysema, asthma or pneumonia. CARDIAC: No history of ASHD known to the patient. GI: No nausea, vomiting. No diarrhea, no constipation. No abdominal pain. : No history of chronic kidney disease. No history of UTIs. PRIZE FIGHTER: Postmenopausal. ENDOCRINE: Positive diabetes mellitus. MUSCULOSKELETAL: No complaints. NEUROLOGIC: No past history of CVA, TIA, seizures or syncope. HEME/ONC: No history of anemia or malignancy. PSYCHIATRIC HISTORY: Negative. PHYSICAL EXAMINATION: GENERAL: The patient is currently seen on 3R. She is lying comfortable, supine in bed, IV antibiotics are infusing. VITAL SIGNS: Blood pressure is ranging from 98 systolic to 127 systolic, diastolics ranging from 47 to 78. Temperature 98.4. Respiratory rate is 20 with a pulse of 65. HEENT: Exam shows her to be normocephalic, atraumatic. Conjunctivae are pink. Sclerae are nonicteric. Pupils equal, round, and reactive to light and accommodation. Extraocular muscles are intact. Posterior pharynx is normal. NECK: Supple. No neck vein distention. Thyroid resection scar. No bruits. No lymphadenopathy. CHEST: Clear to auscultation and percussion. No rales. No rhonchi or wheezing. CARDIOVASCULAR: Shows a regular rate and rhythm without murmurs, rubs or gallops. ABDOMEN: Soft. Bowel sounds normal. No rebound or guarding. No masses. BACK: No CVAT. No spinal tenderness. EXTREMITIES: Show no cyanosis, clubbing, or edema. She has dressings bilaterally on her feet. These were not removed. NEUROLOGIC: Shows her to be alert and oriented x3 with no gross focal motor or sensory deficits noted. LABORATORY DATA AND IMAGING: Admitting chest x-ray showed no acute pulmonary disease. Labs: CBC, white blood cell count 8.5, hemoglobin 12.5 with a platelet count of 207,000. Coags are normal. Chemistries showed normal electrolytes. BUN 29 today, it was 27 on admission. Creatinine is stable at 1.1. Her baseline creatinine is in the 1 to 1.1 range. She has had elevations of her creatinine to 1.5, 1.6 during the last year. Liver enzymes, mild elevation of AST at 44. Alkaline phosphatase 199. Albumin is 3.3, down from 4.1. Glucose was 241. No urine is available for comment. Microbiology, blood cultures are negative at 24 hours. Outpatient culture of her left heel infection is unavailable to me at time of dictation. ASSESSMENT: 1. Mild elevation of BUN in a patient with a stable creatinine of 1.1. The patient in the past has had mild elevations of her BUN and creatinine, perhaps secondary to diuretic therapy. 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 No urine is available for comment. I will obtain a baseline 24 hr urine for creatinine clearance and protein. 2. Left heel infection with cellulitis. The patient will receive appropriate antibiotic therapy under the guidance of Infectious Disease and Podiatry. 3. History of hypertension. Blood pressure control is acceptable. The patient may continue present blood pressure medication with parameters. 4. History of hyperlipidemia. The patient will continue diet and statin therapy. 5. History of hypothyroidism. The patient will continue thyroid replacement therapy. We will check her T4 and TSH. 6. History of peripheral vascular disease status post amputation of her left big toe and right second toe. PLAN: 1. The patient reassured that at present her renal parameters are close to her baseline range. We will continue to monitor closely. She is receiving IV antibiotic therapy for her left heel infection and cellulitis. At present, the patient may remain on angiotensin receptor sesar therapy, and she may remain off of diuretic therapy unless she develops any edema. 2. Continue to monitor accurate I's and O's. 3. Continue to follow labs on a daily basis. 4. Followup outpatient cultures for her left heel infection. 5. Avoid any nephrotoxic agents. 6. The patient reassured that at present she does not have any significant issue with her kidney, and we will continue to monitor her along with you during her hospitalization. Thank you for letting me partake and share in the care of your patient. Erwin Reyes MD JAIMEE
[2017-03-25] MEDS: Aztreonam 1 Gm in NS 100mL 100 ML IVPB SCH ×3 (05:08→21:45)
[2017-03-25 06:18] LABS: HEMOGLOBIN 10.8 g/dL (12.0-16.0); MEAN CORPUSCULAR HEMOGLOBIN 30.9 pg (25.0-35.0); MEAN CORPUSCULAR HGB CONC 32.1 g/dl (31.0-37.0); MEAN PLATELET VOLUME 12.3 fl (7.0-11.0); RBC 3.5 10^6/uL (3.5-6.1); RED CELL DISTRIBUTION WIDTH 13.4 % (11.5-14.5); WHITE BLOOD COUNT 6.7 10^3/ul (4.5-11.0)
[2017-03-25 06:54] LABS: ALBUMIN 3.3 g/dL (3.0-4.8); CALCIUM 8.3 mg/dL (8.4-10.5); MAGNESIUM 1.9 mg/dL (1.7-2.2)
[2017-03-25 07:43] LABS: T4 7.3 ug/dL (5.5-11.0)
--- NOTE | 2017-03-25 08:41 | PN ---
DATE: 03/24/2017 SUBJECTIVE: This is a 81-year-old diabetic female seen for an infected left heel ulcer. The [facility] at which time she was noted to have cellulitis and purulent drainage coming from an ulceration to her left heel. The patient was admitted at that time. The patient is seen in bedside, her feet are offloaded with boots and she is without any new complaints. PHYSICAL EXAMINATION: VITAL SIGNS: Reviewed. Her temperature is 98.4, pulse was 89, blood pressure is 127/78 and respirations are 20. LABORATORY DATA: Reviewed. Her white blood cell count is 8.5, H and H is 12.5 and 38.3 and platelets of 207. The patient does have ESR of 55. Her chemistries were reviewed. Her SMA was grossly within normal limits, the random glucose was 93 with blood test, her finger stick was 241 yesterday and it is 163 today. AST was 44, ALT 99. C-reactive protein was also high at 5.71. Microbiology, the blood cultures have no growth, after 24 hours. We did do a wound culture yesterday at the [facility], the Gram stain is moderate growth of Gram-positive cocci and moderate gram bacilli. The final culture and sensitivity results are still pending. The patient had a chest x-ray and chest x-ray shows no active disease. The patient's lower extremities were evaluated. She has nonpalpable pedal pulses bilaterally. She does have capillary refill time to her lower extremities. She is missing several digits on her right foot secondary to having had amputations in the past for osteomyelitis. The patient's left foot has a heel ulceration, which has gone on to heal; however, it had reopened over the last week or so at home. The patient did have an extremity ultrasound back in 05/2016 at that time the extremity ultrasound showed she had relatively normal ABIs and PVRs at rest; however, because of the new wound and opening we are going to repeat that test. The patient's left heel has an ulceration on the plantar and lateral aspect measuring approximately 3 cm x 3 cm x 0.3 cm. The tissue at the wound bed is the mix of pale granular tissue with some fiber tissue. There is no sinus tract and there is no longer any pus and we did opened it yesterday at the [facility]. There is no fluctuance or erythema around the heel, it is starting to improve with antibiotics. ASSESSMENT: Diabetic with neuropathy. 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 PLAN OF TREATMENT: We did order a hemoglobin A1c. We ordered a foot x-ray. We also ordered the repeat ABIs as noted above and we ordered MRI to rule out osteomyelitis. The patient dressing was done today with hydrogel, Bactroban ointment has been ordered and that will be placed on the wound with Optifoam. The patient will continue offloading with the pads and she will be seen on a daily basis. She may get up and walk to tolerance. Brinda Patterson DPM
[2017-03-25] MEDS: Insulin Reg-MEDIUM-Coverage SC SCH ×4 (08:43→22:30)
[2017-03-25] MEDS: Pantoprazole 40 mg EC Tab PO SCH (08:43)
[2017-03-25] MEDS: Levothyroxine 75 MCG TAB PO SCH (10:00)
[2017-03-25] MEDS: Potassium Chloride 20 mEq ER Tab PO SCH (10:00)
[2017-03-25] MEDS: Linezolid 600 mg in D5W 300 ml 600 MG/300 ML BAG IVPB SCH ×2 (10:00→21:53)
[2017-03-25] MEDS ORDERED: Insulin Human NPH/Reg 70/30 Vial(3 ml) SC SCH (10:00)
[2017-03-25] MEDS: Insulin Human NPH/Reg 70/30 Vial(3 ml) SC SCH (10:01)
[2017-03-25] MEDS: Furosemide 40 mg/5 mL Oral Soln UD PO SCH ×2 (11:27→12:09)
[2017-03-25] MEDS: Non Formulary Medication (Multivit-Min/Fa/Lycopen/Lutein [Centrum Silver Tablet] 1 EACH) PO SCH (11:28)
[2017-03-25] MEDS ORDERED: Potassium Chloride 20 mEq ER Tab PO SCH (12:28)
--- NOTE | 2017-03-25 12:32 | CP.PCM.PN ---
Subjective - Date & Time of Evaluation Date of Evaluation: 03/25/17 Time of Evaluation: 11:10 - Subjective Subjective: No pain in the left foot or heel, no fevers overnight, not in distress, no diarrhea, no nausea. Objective - Vital Signs/Intake and Output Vital Signs (last 24 hours): Temp Pulse Resp BP Pulse Ox 97.9 F 80 19 113/48 L 96 03/25/17 08:57 03/25/17 08:57 03/25/17 08:57 03/25/17 11:27 03/25/17 08:57 Intake and Output: 03/25/17 03/25/17 06:59 18:59 Intake Total 900 Output Total 400 Balance 500 - Medications Medications: Current Medications Acetaminophen (Tylenol 325mg Tab) 650 mg PO Q4 PRN PRN Reason: Pain, Mild (1-3) Last Admin: 03/23/17 22:14 Dose: 650 mg Aspirin (Ecotrin) 81 mg PO DAILY [facility] Last Admin: 03/25/17 10:00 Dose: 81 mg Atorvastatin Calcium (Lipitor) 20 mg PO DIN [facility] Last Admin: 03/24/17 17:30 Dose: 20 mg Furosemide (Lasix) 20 mg PO DAILY [facility] Last Admin: 03/25/17 11:27 Dose: Not Given Aztreonam (Azactam 1 Gm) 100 mls @ 100 mls/hr IVPB Q8 [facility] PRN Reason: Protocol Stop: 03/31/17 06:46 Last Admin: 03/25/17 05:08 Dose: 100 mls/hr Linezolid (Zyvox 600mg/300ml D5w) 600 mg in 300 mls @ 200 mls/hr IVPB Q12 [facility] PRN Reason: Protocol Stop: 03/31/17 10:01 Last Admin: 03/25/17 10:00 Dose: 200 mls/hr Insulin Human Regular (Humulin R Med) 0 units SC ACHS [facility] PRN Reason: Protocol Last Admin: 03/25/17 08:43 Dose: 3 units Levothyroxine Sodium (Synthroid) 75 mcg PO DAILY [facility] Last Admin: 03/25/17 10:00 Dose: 75 mcg Lorazepam (Ativan) 2 mg PO HS PRN; Protocol PRN Reason: Anxiety Losartan Potassium (Cozaar) 25 mg PO DAILY [facility] Metoprolol Succinate (Toprol Xl) 25 mg PO HS [facility] Last Admin: 03/24/17 21:47 Dose: Not Given Mupirocin (Bactroban Ointment) 0 gm TOP BID [facility] Last Admin: 03/25/17 11:27 Dose: 1 applic Non-Formulary Medication (Multivit-Min/Fa/Lycopen/Lutein [Centrum Silver Tablet] ) 1 each PO DAILY [facility] Last Admin: 03/25/17 11:28 Dose: Not Given Pantoprazole Sodium (Protonix Ec Tab) 40 mg PO 0730 [facility] Last Admin: 03/25/17 08:43 Dose: 40 mg Potassium Chloride (K-Dur 20 Meq Er Tab) 20 meq PO DAILY [facility] Last Admin: 03/25/17 10:00 Dose: 20 meq Quetiapine Fumarate (Seroquel) 25 mg PO HS PRN; Protocol PRN Reason: Sleep Last Admin: 03/25/17 01:17 Dose: 25 mg - Labs Labs: 03/25/17 06:00 03/25/17 06:00 PT 12.9 SECONDS (9.4-12.5) H 03/23/17 10:40 INR 1.12 (0.93-1.08) H 03/23/17 10:40 APTT 32.4 Seconds (25.1-36.5) 03/23/17 10:40 - Constitutional Appears: Non-toxic - Head Exam Head Exam: NORMAL INSPECTION - ENT Exam ENT Exam: Mucous Membranes Moist - Neck Exam Neck Exam: absent: Meningismus - Respiratory Exam Respiratory Exam: Decreased Breath Sounds - Cardiovascular Exam Cardiovascular Exam: +S1, +S2 - GI/Abdominal Exam GI & Abdominal Exam: Soft. absent: Tenderness - Extremities Exam Additional comments: left foot with dressings in place Assessment and Plan - Assessment and Plan (Free Text) Plan: Assessment left heel infected ulcer with cellulitis without evidence of osteomyelitis on MRI history of 2nd right toe and metatarsal head osteomyelitis S/P surgery chronic renal failure obesity with BMI 38 osteoarthritis HTN DM hypothyroidism S/P left toe amputation S/P right hip surgery Plan on Zyvox and Azactam day 2; wound cx showing only E. faecalis; will get EKG - if QT is not prolonged, can switch patient to PO Zyvox and Levaquin for 7-10 days with outpatient follow up with Podiatry Reviewed doppler U/S of left leg which showed normal MCKENNA and PVR
[2017-03-25] MEDS ORDERED: Potassium Chloride 10 mEq ER Tab PO ONE (12:45)
--- NOTE | 2017-03-25 13:31 | PN ---
DATE: SUBJECTIVE: A 81-year-old diabetic female seen at bedside for continued evaluation and management of an infected diabetic left heel wound ulceration. The patient has been afebrile and reports no pain in her heels. OBJECTIVE: VITAL SIGNS: Revealed temperature of 97.9, pulse rate of 80, blood pressure of 113/48, and respiratory rate of 19. EXTREMITIES: Nonpalpable pedal pulses noted bilaterally. Capillary refilling time is delayed. There are noted to be several amputated digits on the right foot. The left foot presents with a full-thickness ulceration that measures approximately 3 x 3 x 0.3 cm. The base of the ulceration is primarily granular tissue with some fibrotic tissue dispersed. There is no purulence to suggest underlying abscess formation. There is no sinus tract. There is no probing to bone. There is no acute active cellulitis clinically noted. LABORATORY DATA: Reveal white count of 6.7, hemoglobin of 10.8, hematocrit of 33.6, and platelet count of 174. Her ESR is elevated at 55. Wound culture was taken on 03/23/2017, which reveals Enterococcus faecalis growth and is sensitive to ampicillin and penicillin. X-rays taken revealed no radiographic evidence of osteomyelitis at the underlying bone and MRI taken reveals no radiographic evidence of cortical destruction at the calcaneal bone underlying the ulceration site. ASSESSMENT: Full-thickness ulceration to the left heel secondary to diabetic neuropathy. PLAN AND TREATMENT: X-rays and MRI reviewed, no evidence of osteomyelitis. Arterial ultrasound reveals relatively normal wave lengths at the ankle and metatarsal. The wound was cleansed with normal sterile saline. We will apply Bactroban ointment, hydrogel, and a dry sterile dressing daily. It is imperative that we continue to offload the heel at all times while in bed and a reverse wedge shoe was ordered to offload the heel when she is ambulating with a walker. Dr. Garcia's note was read and appreciated. We will continue with IV antibiotics as per Infectious Disease and final culture results from 2 days ago. The patient will be seen and followed daily. Robby Owusu DPM
--- NOTE | 2017-03-25 14:08 | PN ---
DATE: SUBJECTIVE: The patient is a 81-year-old female, seen and examined. She is sitting in chair, seems to be comfortable. No nausea, vomiting, or diarrhea. No abdominal pain. No foot pain. PHYSICAL EXAMINATION: VITAL SIGNS: She is afebrile, pulse is 80, respirations are 19, and blood pressure is 113/48. LUNGS: Bilateral fair airflow. No rhonchi or crackle. HEART: Reveals S1 and S2 audible. ABDOMEN: Soft and nontender. No rebound and no guarding. NEUROLOGIC: The patient is awake, alert, and oriented. Able to communicate. EXTREMITIES: Left foot is in the dressing. LABORATORY DATA: WBC of 6.7, hemoglobin of 10.8, hematocrit of 33.6, and platelets of 174. Chemistry: Sodium of 137, potassium of 4.1, chloride of 102, CO2 of 25, BUN of 28, creatinine of 1.1, and blood sugar of 157. Blood cultures are negative. Wound culture done in [facility] shows Enterococcus faecalis in the left heel culture. DIAGNOSTIC DATA: Arterial Doppler was done yesterday that shows normal MCKENNA and PVR. Examination addressed and she had MRI of the left foot done, no evidence of acute osteomyelitis. ASSESSMENT AND PLAN: 1. Left heel diabetic ulcer. 2. Hypertension. 3. Hyperlipidemia. 4. Hypothyroidism. 5. Insulin dependent diabetes. PLAN: Currently, the patient is on Azactam. She is getting local wound treatment. We will continue her on losartan. We will decrease her Lasix to 20 mg daily and potassium also to 10 mEq daily. Since the patient does not have osteomyelitis, she will be maintained on Zyvox and Azactam. Further plan according to supervisor electric motor testing and ID input for disposition plan. Liam Fernandez MD
--- NOTE | 2017-03-25 15:33 | CARD ---
APPROVED REPORT EKG Measurement Heart [id number] <Conclusion> Normal sinus rhythm Voltage criteria for left ventricular hypertrophy Abnormal ECG
--- NOTE | 2017-03-25 17:15 | PN ---
DATE: 03/25/2017 SUBJECTIVE: The patient is seen lying in bed. She is awake, she is alert. She denies any pain. She denies any shortness of breath. She denies any chest tightness. CURRENT MEDICATIONS: Ativan, Azactam, Bactroban, Cozaar 25 daily, aspirin, potassium 10 mEq, Lasix 20, Lipitor 20, Protonix 40, Seroquel, Toprol XL, Tylenol, Zyvox. PHYSICAL EXAMINATION: GENERAL: Morbidly obese elderly lady lying in bed. VITAL SIGNS: Blood pressure 145/73, heart rate 80, respiratory rate 20, temperature 97.9. HEENT: Normocephalic, atraumatic. NECK: Supple, no JVD. LUNGS: Bilateral equal air entry, no rales. CARDIAC: S1 and S2, regular rate and rhythm, no murmur, no rub. ABDOMEN: Obese, distended, soft, nontender, bowel sounds present. EXTREMITIES: Dressing of the left heel, 2+ pitting edema. INTAKE AND OUTPUT: 1740/1200. LABORATORY DATA: WBC 6.5, hemoglobin 10.8, hematocrit 34, platelets 174. Sodium 137, potassium 4.1, chloride 102, CO2 25, BUN 28, creatinine 1.1, glucose 284, calcium 8.3, phosphorus 2.9, magnesium 1.9, albumin 3.3. Cultures negative. Lower extremity MRI, no evidence of acute osteomyelitis. ASSESSMENT: 1. 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 2. Left heel cellulitis. 3. Hypertension. 4. Hyperlipidemia. 5. Hypothyroidism. 6. Peripheral vascular disease. 7. Morbid obesity. PLAN: 1. Followup 24 hour urine. 2. Okay to continue ARB. 3. Continue antibiotics. 4. Avoid nephrotoxins. 5. Will continue to follow with you. Nhung Alejandre MD
[2017-03-25 17:41] VITALS: RESP 20
[2017-03-25] MEDS: Metoprolol Succinate 25 mg XL Tab PO SCH (21:47)
[2017-03-26] MEDS: Aztreonam 1 Gm in NS 100mL 100 ML IVPB SCH (06:30)
[2017-03-26] MEDS ORDERED: Levothyroxine 75 MCG TAB PO SCH (07:00)
[2017-03-26 07:55] LABS: ALBUMIN 3.3 g/dL (3.0-4.8); ALT/SGPT 41 U/L (7-56); AST/SGOT 41 U/L (14-36); BLOOD UREA NITROGEN 23 mg/dL (7-21); CALCIUM 8.7 mg/dL (8.4-10.5); GFR AFRICAN-AMERICAN > 60; GFR NON-AFRICAN AMERICAN 53
[2017-03-26] MEDS ORDERED: Potassium Chloride 10 mEq ER Tab PO SCH (08:00)
[2017-03-26] MEDS: Insulin Reg-MEDIUM-Coverage SC SCH ×2 (08:07→11:43)
[2017-03-26] MEDS: Pantoprazole 40 mg EC Tab PO SCH (08:11)
[2017-03-26 08:13] LABS: MEAN CELL VOLUME 95.5 fl (80.0-105.0); MEAN CORPUSCULAR HEMOGLOBIN 30.9 pg (25.0-35.0); MEAN CORPUSCULAR HGB CONC 32.4 g/dl (31.0-37.0); MEAN PLATELET VOLUME 12.1 fl (7.0-11.0); RBC 3.56 10^6/uL (3.5-6.1); RED CELL DISTRIBUTION WIDTH 13.2 % (11.5-14.5); WHITE BLOOD COUNT 6.8 10^3/ul (4.5-11.0)
[2017-03-26] MEDS: Insulin Human NPH/Reg 70/30 Vial(3 ml) SC SCH (09:34)
[2017-03-26] MEDS: Linezolid 600 mg in D5W 300 ml 600 MG/300 ML BAG IVPB SCH (09:35)
[2017-03-26] MEDS: Non Formulary Medication (Multivit-Min/Fa/Lycopen/Lutein [Centrum Silver Tablet] 1 EACH) PO SCH (09:36)
[2017-03-26 09:46] VITALS: BP 110/48
--- NOTE | 2017-03-26 09:55 | PN ---
DATE: SUBJECTIVE: A 81-year-old diabetic female seen at bedside for continued evaluation and management of a slowly resolving infected left heel ulceration. The patient has been afebrile and continues to report no pain in her heels. Vital signs revealed temperature of 96.9, pulse rate of 80, blood pressure of 124/55, respiratory rate of 20. Laboratory findings reveal a white count of 6.8, hemoglobin of 11, hematocrit of 34, platelet count of 189. Her ESR is elevated at 55. Last culture result shows no organisms preliminarily. X-rays and MRI have ruled out the presence of osteomyelitis. OBJECTIVE: Nonpalpable pedal pulses noted bilaterally. There are noted to be several amputated digits. Capillary filling time is delayed. There is a full-thickness left heel ulceration that measures approximately 3 cm x 3 cm x 0.3 cm. Base of the ulceration remains primarily granular with minimal fibrotic tissue. There is no sinus tracking. There is no probing to bone. There is no purulence or malodor to suggest underlying abscess formation. ASSESSMENT: Full-thickness diabetic ulceration to the left heel. PLAN: A reverse heel wedge shoe was ordered but she needs a MEDIUM SIZE so the large was returned to PT and a new rx for a medium reverse heel wedge shoe will be ordered. The patient's wound was cleansed with normal sterile saline. We will continue to apply Bactroban ointment, a small amount of hydrogel, and a dry sterile dressing daily. We will continue to offload both heels using the foam Multi-Podus Boots at bedside. Dr. Garcia's note was read and appreciated. She is set to be transferred to TCU.The patient can be discharged home on p.o. antibiotics and follow up at the wound center weekly with visiting nurses to come to the home twice weekly to change the dressings after her TCU discharge. The patient will be seen and followed until discharge. Robby Owusu DPM [facility]
[2017-03-26] MEDS ORDERED: Cholecalciferol 1,000 INTLU TAB PO SCH (10:00)
[2017-03-26 11:08] VITALS: PULSE 77; TEMP 98.2; O2SAT 97
--- NOTE | 2017-03-26 12:04 | PN ---
DATE: SUBJECTIVE: Patient has no complaints of any chest pain or shortness of breath or headache or dizziness. PHYSICAL EXAMINATION VITAL SIGNS: Temperature is 96.9, pulse of 87, blood pressure 124/55, respirations 20. GENERAL: The patient is lying in bed, flat, comfortable. HEENT: No oral lesion. Anicteric sclerae. Moist mucosa. NECK: No JVD, adenopathy, or thyromegaly. CARDIOVASCULAR: S1 and S2, regular. No murmurs, rubs, or gallops. LUNGS: Clear to auscultation bilaterally. No wheeze, rales, or rhonchi. ABDOMEN: Bowel sounds are positive, soft, nontender and nondistended. EXTREMITIES: no cyanosis, clubbing or edema. LABORATORY DATA: Reviewed. ASSESSMENT: 1. Acute kidney injury. 2. Left diabetic heel ulcer. 3. Hypertension. 4. Dyslipidemia. 5. Hypothyroidism. 6. Diabetes type 2. 7. Peripheral arterial disease. 8. Obesity with body mass index of 38. PLAN: The patient is currently comfortable. She is on Zyvox and Azactam. The patient's wound cultures showed only Enterococcus faecalis. The patient may need to be switched over to p.o. antibiotics with Zyvox and Levaquin. The patient had an EKG done yesterday. The EKG was lacking for QT prolongation. The patient's QTc is 437. An abnormal QTc is greater than 470 milliseconds. The patient's QTC is considered normal. I will discharge the patient home today. I will have her follow up with her ambulatory service representative and with Dr. Fernandez. CONDITION: Stable.. ACTIVITIES: Increase as tolerated. Chriss Ivey MD
[2017-03-26 12:11] LABS: URINE COLLECTION TIME 24 HOURS; URINE TOTAL VOLUME 2300 mL (800-1400)
[2017-03-26 12:15] LABS: URINE 24 HOUR TOTAL PROTEIN 230 mg/24HR (42-225); URINE CREATININE 22.8 mg/dL
--- NOTE | 2017-03-26 12:46 | CP.PCM.PN ---
Subjective - Date & Time of Evaluation Date of Evaluation: 03/26/17 Time of Evaluation: 11:30 - Subjective Subjective: No new fevers, no pain in the left heel, no diarrhea, no nausea. Objective - Vital Signs/Intake and Output Vital Signs (last 24 hours): Temp Pulse Resp BP Pulse Ox 96.9 F L 87 20 110/48 L 94 L 03/25/17 16:00 03/25/17 21:47 03/25/17 16:00 03/26/17 09:33 03/25/17 16:00 Intake and Output: 03/26/17 03/26/17 06:59 18:59 Intake Total 840 120 Output Total 2300 500 Balance -1460 -380 - Medications Medications: Current Medications Acetaminophen (Tylenol 325mg Tab) 650 mg PO Q4 PRN PRN Reason: Pain, Mild (1-3) Last Admin: 03/23/17 22:14 Dose: 650 mg Aspirin (Ecotrin) 81 mg PO DAILY [facility] Last Admin: 03/26/17 09:33 Dose: 81 mg Atorvastatin Calcium (Lipitor) 20 mg PO DIN [facility] Last Admin: 03/25/17 17:27 Dose: 20 mg Calcium Carbonate (Caltrate) 600 mg PO DAILY [facility] Last Admin: 03/26/17 09:34 Dose: 600 mg Cholecalciferol (Vitamin D) 1,000 intlu PO DAILY [facility] Last Admin: 03/26/17 09:33 Dose: 1,000 intlu Furosemide (Lasix) 20 mg PO DAILY [facility] Last Admin: 03/26/17 09:33 Dose: 20 mg Aztreonam (Azactam 1 Gm) 100 mls @ 100 mls/hr IVPB Q8 [facility] PRN Reason: Protocol Stop: 03/31/17 06:46 Last Admin: 03/26/17 06:30 Dose: 100 mls/hr Linezolid (Zyvox 600mg/300ml D5w) 600 mg in 300 mls @ 200 mls/hr IVPB Q12 [facility] PRN Reason: Protocol Stop: 03/31/17 10:01 Last Admin: 03/26/17 09:35 Dose: 200 mls/hr Insulin Human Regular (Humulin R Med) 0 units SC ACHS [facility] PRN Reason: Protocol Last Admin: 03/26/17 08:07 Dose: Not Given Levothyroxine Sodium (Synthroid) 75 mcg PO 0700 [facility] Last Admin: 03/26/17 06:31 Dose: 75 mcg Lorazepam (Ativan) 2 mg PO HS PRN; Protocol PRN Reason: Anxiety Losartan Potassium (Cozaar) 25 mg PO DAILY [facility] Last Admin: 03/26/17 09:34 Dose: 25 mg Metoprolol Succinate (Toprol Xl) 25 mg PO HS [facility] Last Admin: 03/25/17 21:47 Dose: 25 mg Mupirocin (Bactroban Ointment) 0 gm TOP BID [facility] Last Admin: 03/26/17 09:35 Dose: 1 applic Non-Formulary Medication (Multivit-Min/Fa/Lycopen/Lutein [Centrum Silver Tablet] ) 1 each PO DAILY [facility] Last Admin: 03/26/17 09:36 Dose: Not Given Pantoprazole Sodium (Protonix Ec Tab) 40 mg PO 0730 [facility] Last Admin: 03/26/17 08:11 Dose: 40 mg Potassium Chloride (Klor-Con 10) 10 meq PO BRK [facility] Last Admin: 03/26/17 08:11 Dose: 10 meq Quetiapine Fumarate (Seroquel) 25 mg PO HS PRN; Protocol PRN Reason: Sleep Last Admin: 03/25/17 23:13 Dose: 25 mg - Labs Labs: 03/26/17 07:00 03/26/17 07:00 PT 12.9 SECONDS (9.4-12.5) H 03/23/17 10:40 INR 1.12 (0.93-1.08) H 03/23/17 10:40 APTT 32.4 Seconds (25.1-36.5) 03/23/17 10:40 - Constitutional Appears: Non-toxic - Head Exam Head Exam: NORMAL INSPECTION - Neck Exam Neck Exam: absent: Meningismus - Respiratory Exam Respiratory Exam: Decreased Breath Sounds - Cardiovascular Exam Cardiovascular Exam: +S1, +S2 - GI/Abdominal Exam GI & Abdominal Exam: Soft. absent: Tenderness - Extremities Exam Additional comments: left foot with dressings in place Assessment and Plan - Assessment and Plan (Free Text) Plan: Assessment left heel infected ulcer with cellulitis without evidence of osteomyelitis on MRI history of 2nd right toe and metatarsal head osteomyelitis S/P surgery chronic renal failure obesity with BMI 38 osteoarthritis HTN DM hypothyroidism S/P left toe amputation S/P right hip surgery Plan on Zyvox and Azactam day 3; wound cx showing only E. faecalis; follow repeat wound cx results Reviewed doppler U/S of left leg which showed normal MCKENNA and PVR
--- NOTE | 2017-03-26 15:46 | PN ---
DATE: 03/26/2017 SUBJECTIVE: The patient is seen sitting in a chair. She is awake. She is alert. She is comfortable. She denies any pain. She denies any shortness of breath. PHYSICAL EXAMINATION: GENERAL: Obese elderly lady sitting in chair. VITAL SIGNS; Blood pressure 110/48, heart rate 77, respiratory rate 20, and temperature 98.2. HEENT: Normocephalic, atraumatic. NECK: Supple, no JVD. LUNGS: Bilateral equal air entry, bilateral equal expansion, no rales. CARDIAC: Regular rate and rhythm, no murmur, no rub. ABDOMEN: Obese, distended, soft, and nontender, bowel sounds present. EXTREMITIES: Dressing of the left heel. Trace edema. INTAKE AND OUTPUT: 840/2300. LABORATORY DATA: WBC 6.8, hemoglobin 11, hematocrit 34, and platelets 189. Sodium 141, potassium 3.9, chloride 105, CO2 27, BUN 23, creatinine 1.0, glucose 90, calcium 8.7, AST 41, ALT 41, and albumin 3.3. Urine total volume 2300, urine protein 230, creatinine clearance pending. Cultures negative. CURRENT MEDICATIONS: Ativan, Azactam, calcium carbonate, Cozaar 25, Ecotrin, insulin, potassium chloride 10 mEq daily, Lasix 20 daily, Lipitor, Protonix, Synthroid, Seroquel, Toprol-XL 25, Tylenol, and Zyvox. ASSESSMENT: 1. Acute kidney injury, mild prerenal azotemia, resolved. 2. Underlying chronic kidney disease stage II/III, suspect secondary to age. 3. Morbid obesity. 4. Left heel cellulitis. 5. Hypertension. 6. Hyperlipidemia. 7. Hypothyroidism. 8. Peripheral vascular disease. PLAN: 1. Followup 24-hour urine. 2. Continue current antihypertensives. 3. Continue low-dose Lasix. 4. Continue antibiotics for cellulitis. 5. Avoid nephrotoxins. Nhung Alejandre MD
== END 2017-03-26 13:36 | disposition home or self-care (01) | DRG 638 ==
LOC: ED 09:37 → ERH 11:32 → 3RNO 12:25
PROVIDERS: ADMIT Internal Medicine; ATTEND Internal Medicine
DX: E11.621 Type 2 diabetes mellitus with foot ulcer (principal); L03.116 Cellulitis of left lower limb; L97.429 Non-pressure chronic ulcer of left heel and midfoot with unspecified severity; N17.9 Acute kidney failure, unspecified; E11.22 Type 2 diabetes mellitus with diabetic chronic kidney disease; E11.41 Type 2 diabetes mellitus with diabetic mononeuropathy; I48.91 Unspecified atrial fibrillation; E66.01 Morbid (severe) obesity due to excess calories; E03.9 Hypothyroidism, unspecified; E11.51 Type 2 diabetes mellitus with diabetic peripheral angiopathy without gangrene; E11.622 Type 2 diabetes mellitus with other skin ulcer; E78.5 Hyperlipidemia, unspecified; I12.9 Hypertensive chronic kidney disease with stage 1 through stage 4 chronic kidney disease, or unspecified chronic kidney disease; I25.10 Atherosclerotic heart disease of native coronary artery without angina pectoris; M19.90 Unspecified osteoarthritis, unspecified site; N18.2 Chronic kidney disease, stage 2 (mild); Z68.38 Body mass index [BMI] 38.0-38.9, adult; Z79.4 Long term (current) use of insulin; Z79.82 Long term (current) use of aspirin; Z79.899 Other long term (current) drug therapy; Z82.49 Family history of ischemic heart disease and other diseases of the circulatory system; Z83.3 Family history of diabetes mellitus; Z89.412 Acquired absence of left great toe; Z89.421 Acquired absence of other right toe(s); Z88.0 Allergy status to penicillin; B95.2 Enterococcus as the cause of diseases classified elsewhere

== ENCOUNTER 2017-03-26 13:38 | Inpatient (IN) | payer OTHER ==
[2017-03-26] MEDS: Insulin Reg-MEDIUM-Coverage SC SCH ×2 (17:58→22:10)
[2017-03-26] MEDS: Bacitracin Ointment 30 GM TUBE TOP SCH (17:59)
[2017-03-26] MEDS ORDERED: Linezolid 600 mg in D5W 300 ml 600 MG/300 ML BAG IVPB SCH (18:00)
[2017-03-26] MEDS ORDERED: Pneumococcal 23-Valent Vaccine IM ONE (19:11)
[2017-03-26] MEDS ORDERED: Influenza Vaccine 60 mcg/0.5 mL SYR (4YR UP) IM ONE (19:11)
[2017-03-26] MEDS: Aztreonam 1 Gm in NS 100mL 100 ML IVPB SCH (22:34)
[2017-03-27] MEDS: Pantoprazole 40 mg EC Tab PO SCH (06:34)
[2017-03-27] MEDS: Levothyroxine 75 MCG TAB PO SCH (06:34)
[2017-03-27] MEDS: Aztreonam 1 Gm in NS 100mL 100 ML IVPB SCH ×3 (06:34→22:21)
[2017-03-27] MEDS: Insulin Reg-MEDIUM-Coverage SC SCH ×4 (06:45→22:39)
[2017-03-27] MEDS ORDERED: Aztreonam 1 Gm in NS 100mL 100 ML IVPB SCH (07:45)
[2017-03-27] MEDS: Metoprolol Succinate 25 mg XL Tab PO SCH (08:12)
[2017-03-27] MEDS: Potassium Chloride 10 mEq ER Tab PO SCH (08:12)
[2017-03-27] MEDS ORDERED: Linezolid 600 mg in D5W 300 ml 600 MG/300 ML BAG IVPB SCH (10:00)
[2017-03-27] MEDS: Bacitracin Ointment 30 GM TUBE TOP SCH ×2 (10:22→17:08)
[2017-03-27] MEDS: Cholecalciferol 1,000 INTLU TAB PO SCH (10:23)
[2017-03-27] MEDS: [UNRECOGNIZED DRUG - MIXTURE] PO SCH (10:26)
[2017-03-27] MEDS: Prostat 15 g packet GT SCH (10:30)
--- NOTE | 2017-03-27 11:48 | CP.PCM.CON ---
History of Present Illness - History of Present Illness History of Present Illness: 81 year old female with PMH of obesity with BMI 38, osteoarthritis, HTN, DM, hypothyroidism, S/P left toe amputation, S/P right hip surgery was initially admitted in [facility] because of worsening left heel ulcer. Osteomyelitis was ruled out by MRI but patient still needs wound care and antibiotics. She is now transferred to [facility] for continued medical therapy and physical rehab. Infectious Diseases consult is requested to further evaluate and manage. Currently the patient is comfortable on a chair, not in distress, no pain in the left foot, no fever or chills, no nausea or vomiting, no chest pain, no SOB, no headache or dizziness, no abdominal pain, no diarrhea, no dysuria, no cough or colds. Review of Systems - Review of Systems All systems: reviewed and no additional remarkable complaints except (as per HPI ) Past Patient History - Infectious Disease Hx of Infectious Diseases: None - Tetanus Immunizations Tetanus Immunization: Unknown - Past Medical History & Family History Past Medical History?: Yes - Past Social History Smoking Status: Never Smoked - CARDIAC Hx Cardiac Disorders: Yes Hx Hypertension: Yes - PULMONARY Hx Respiratory Disorders: No - NEUROLOGICAL Hx Neurological Disorder: No - HEENT Hx HEENT Problems: No - RENAL Hx Chronic Kidney Disease: No - ENDOCRINE/METABOLIC Hx Diabetes Mellitus Type 2: Yes Hx Hypothyroidism: Yes - HEMATOLOGICAL/ONCOLOGICAL Hx Blood Disorders: No - INTEGUMENTARY Hx Dermatological Problems: No - MUSCULOSKELETAL/RHEUMATOLOGICAL Hx Falls: Yes - GASTROINTESTINAL Hx Gastrointestinal Disorders: No - GENITOURINARY/GYNECOLOGICAL Hx Genitourinary Disorders: Yes (urgency frequency) Hx Reproductive Disorders: No - PSYCHIATRIC Hx Psychophysiologic Disorder: Yes Hx Depression: Yes Hx Substance Use: No - SURGICAL HISTORY Hx Amputation: Yes (LEFT GREAT TOE, RIGHT 2ND TOE) Hx Musculoskeletal Surgery: Yes - ANESTHESIA Hx Anesthesia: Yes Hx Anesthesia Reactions: (not known) Hx Malignant Hyperthermia: No Meds Allergies/Adverse Reactions: Allergies Allergy/AdvReac Type Severity Reaction Status Date / Time Penicillins Allergy ITCHING Verified 03/26/17 17:25 - Medications Medications: Current Medications Acetaminophen (Tylenol 325mg Tab) 650 mg PO Q4H PRN; Protocol PRN Reason: pain Aspirin (Ecotrin) 81 mg PO 0800 [facility] PRN Reason: Protocol Atorvastatin Calcium (Lipitor) 20 mg PO DIN [facility] PRN Reason: Protocol Last Admin: 03/26/17 17:58 Dose: 20 mg Bacitracin (Bacitracin) 0 gm TOP BID [facility] PRN Reason: Protocol Last Admin: 03/26/17 17:59 Dose: 1 applic Calcium Carbonate (Caltrate) 600 mg PO DAILY [facility] PRN Reason: Protocol Cholecalciferol (Vitamin D) 1,000 intlu PO DAILY [facility] PRN Reason: Protocol Furosemide (Lasix) 20 mg PO DAILY [facility] PRN Reason: Protocol Home Med (Home Med) 1 unit PO DAILY [facility] PRN Reason: Protocol Aztreonam (Azactam 1 Gm) 100 mls @ 100 mls/hr IVPB Q8 [facility] PRN Reason: Protocol Stop: 04/03/17 07:46 Linezolid (Zyvox 600mg/300ml D5w) 600 mg in 300 mls @ 200 mls/hr IVPB Q12 [facility] PRN Reason: Protocol Stop: 04/03/17 10:01 Insulin Human Regular (Humulin R Med) 0 units SC ACHS [facility] PRN Reason: Protocol Last Admin: 03/27/17 06:45 Dose: 1 units Levothyroxine Sodium (Synthroid) 75 mcg PO 0600 [facility] PRN Reason: Protocol Last Admin: 03/27/17 06:34 Dose: 75 mcg Lorazepam (Ativan) 2 mg PO HS PRN; Protocol PRN Reason: Anxiety Losartan Potassium (Cozaar) 25 mg PO DAILY [facility] PRN Reason: Protocol Metoprolol Succinate (Toprol Xl) 25 mg PO BRK [facility] PRN Reason: Protocol Pantoprazole Sodium (Protonix Ec Tab) 40 mg PO 0600 [facility] PRN Reason: Protocol Last Admin: 03/27/17 06:34 Dose: 40 mg Potassium Chloride (Klor-Con 10) 10 meq PO 0800 [facility] PRN Reason: Protocol Quetiapine Fumarate (Seroquel) 25 mg PO HS [facility] PRN Reason: Protocol Last Admin: 03/26/17 22:35 Dose: 25 mg Physical Exam - Constitutional Appears: Non-toxic - Head Exam Head Exam: NORMAL INSPECTION - ENT Exam ENT Exam: Mucous Membranes Moist - Neck Exam Neck exam: Negative for: Lymphadenopathy, Meningismus - Respiratory Exam Respiratory Exam: Decreased Breath Sounds. absent: Rales - Cardiovascular Exam Cardiovascular Exam: +S1, +S2 - GI/Abdominal Exam GI & Abdominal Exam: Soft. absent: Tenderness - Extremities Exam Additional comments: left foot with dressings in place Results - Vital Signs Recent Vital Signs: Last Vital Signs Temp 98.5 F 03/26/17 18:57 Pulse 84 03/26/17 18:57 Resp 18 03/26/17 18:57 BP 98/59 L 03/26/17 18:57 Pulse Ox 98 03/26/17 16:55 - Labs Labs: Laboratory Results - last 24 hr 03/26/17 03/26/17 03/27/17 17:03 21:29 06:40 POC Glucose (mg/dL) 119 H 217 H 173 H Assessment & Plan - Assessment and Plan (Free Text) Plan: Assessment left heel infected ulcer with cellulitis without evidence of osteomyelitis on MRI history of 2nd right toe and metatarsal head osteomyelitis S/P surgery chronic renal failure obesity with BMI 38 osteoarthritis HTN DM hypothyroidism S/P left toe amputation S/P right hip surgery Plan on Zyvox and Azactam day 4; wound cx showing only E. faecalis; follow repeat wound cx results - should complete 7-10 days of antibiotics Reviewed doppler U/S of left leg which showed normal MCKENNA and PVR
--- NOTE | 2017-03-27 12:35 | PN ---
DATE: SUBJECTIVE: The patient's initial H and P reviewed and I agree with. The patient has no complaints of any chest pain. No shortness of breath. No headaches or dizziness. She has been transferred to the transitional care unit for rehab. She has been followed by Nephrology and by Podiatry. PHYSICAL EXAMINATION: VITAL SIGNS: Temperature is 98.5, pulse of 84, blood pressure is 98/59, and respirations are 18. GENERAL: The patient is lying in bed, flat, comfortable. HEENT: No oral lesion. Anicteric sclerae. Moist mucosa. NECK: No JVD, adenopathy, or thyromegaly. CARDIOVASCULAR: S1 and S2, regular. No murmurs, rubs, or gallops. LUNGS: Clear to auscultation bilaterally. No wheeze, rales, or rhonchi. ABDOMEN: Bowel sounds are positive, soft, nontender and nondistended. EXTREMITIES: No cyanosis, clubbing or edema. ASSESSMENT: 1. Acute kidney injury. 2. Left diabetic heel ulcer. 3. Hypertension. 4. Dyslipidemia. 5. Hypothyroidism. 6. Diabetes type 2. 7. Peripheral arterial disease. 8. Obesity with body mass index of 38. PLAN: The patient is on aztreonam for antibiotics. She is going to continue with Caltrate for calcium replacement. The patient is on losartan for her hypertension. She is receiving potassium replacement. She is on Lasix daily. Her creatinine is back to baseline. The patient is on Lipitor for dyslipidemia. She is on Protonix. She is on Synthroid for hypothyroidism. She is also on vitamin D. She is going to continue with linezolid. She is going to follow with Infectious Disease as well. Chriss Ivey MD
--- NOTE | 2017-03-27 16:30 | CP.PCM.PN ---
Subjective - Date & Time of Evaluation Date of Evaluation: 03/27/17 Time of Evaluation: 16:26 - Subjective Subjective: 81 year old diabetic female seen and evaluated in TCU for slowly resolving infected left heel ulceration. Patient hemodynamically stable and NAD. NAEO. Surgical shoes present bilaterally. Denies any pain to left heel. Denies N/V/F/ D/C/SOB. Objective - Vital Signs/Intake and Output Vital Signs (last 24 hours): Temp Pulse Resp BP Pulse Ox 98.3 F 84 18 102/56 L 97 03/27/17 10:24 03/27/17 10:24 03/27/17 10:24 03/27/17 10:24 03/27/17 10:24 - Medications Medications: Current Medications Acetaminophen (Tylenol 325mg Tab) 650 mg PO Q4H PRN; Protocol PRN Reason: pain Aspirin (Ecotrin) 81 mg PO 0800 [facility] PRN Reason: Protocol Last Admin: 03/27/17 08:12 Dose: 81 mg Atorvastatin Calcium (Lipitor) 20 mg PO DIN [facility] PRN Reason: Protocol Last Admin: 03/26/17 17:58 Dose: 20 mg Bacitracin (Bacitracin) 0 gm TOP BID [facility] PRN Reason: Protocol Last Admin: 03/27/17 10:22 Dose: 1 applic Calcium Carbonate (Caltrate) 600 mg PO DAILY [facility] PRN Reason: Protocol Last Admin: 03/27/17 10:22 Dose: 600 mg Cholecalciferol (Vitamin D) 1,000 intlu PO DAILY [facility] PRN Reason: Protocol Last Admin: 03/27/17 10:23 Dose: 1,000 intlu Furosemide (Lasix) 20 mg PO DAILY [facility] PRN Reason: Protocol Last Admin: 03/27/17 10:23 Dose: 20 mg Home Med (Home Med) 1 unit PO DAILY [facility] PRN Reason: Protocol Last Admin: 03/27/17 10:26 Dose: Not Given Aztreonam (Azactam 1 Gm) 100 mls @ 100 mls/hr IVPB 0600,1400,2200 [facility] PRN Reason: Protocol Stop: 04/03/17 07:01 Last Admin: 03/27/17 13:59 Dose: 100 mls/hr Linezolid (Zyvox 600mg/300ml D5w) 600 mg in 300 mls @ 200 mls/hr IVPB 0600, 1800 [facility] PRN Reason: Protocol Stop: 04/03/17 18:01 Insulin Human Regular (Humulin R Med) 0 units SC ACHS [facility] PRN Reason: Protocol Last Admin: 03/27/17 12:21 Dose: 5 units Levothyroxine Sodium (Synthroid) 75 mcg PO 0600 [facility] PRN Reason: Protocol Last Admin: 03/27/17 06:34 Dose: 75 mcg Lorazepam (Ativan) 2 mg PO HS PRN; Protocol PRN Reason: Anxiety Losartan Potassium (Cozaar) 25 mg PO DAILY [facility] PRN Reason: Protocol Last Admin: 03/27/17 10:22 Dose: 25 mg Metoprolol Succinate (Toprol Xl) 25 mg PO BRK [facility] PRN Reason: Protocol Last Admin: 03/27/17 08:12 Dose: 25 mg Pantoprazole Sodium (Protonix Ec Tab) 40 mg PO 0600 [facility] PRN Reason: Protocol Last Admin: 03/27/17 06:34 Dose: 40 mg Potassium Chloride (Klor-Con 10) 10 meq PO 0800 [facility] PRN Reason: Protocol Last Admin: 03/27/17 08:12 Dose: 10 meq Quetiapine Fumarate (Seroquel) 25 mg PO HS [facility] PRN Reason: Protocol Last Admin: 03/26/17 22:35 Dose: 25 mg - Constitutional Appears: Well, Non-toxic, No Acute Distress - Extremities Exam Additional comments: VASC: DP and PT pulses nonpalpable b/l. CFT delayed. Temperature gradient warm to warm. Bilateral lower extremity edema noted. NEURO: Gross sensation absent. DERM: Full thickness ulceration located to plantar aspect of left heel measuring approximately 3 x 3 x 0.3 cm - wound base is primarily granular with minimal fibrotic tissue; mild serosanguinous drainage noted; no purulence, no malodor, no fluctuance, no undermining, no tunneling. ORTHO: Multiple amputated digits. No pain on palpation bilateral lower extremity. - Neurological Exam Neurological Exam: Alert, Awake, Oriented x3 - Psychiatric Exam Psychiatric exam: Normal Affect, Normal Mood Assessment and Plan - Assessment and Plan (Free Text) Assessment: 81 year old female with full thickness diabetic ulceration to left heel Plan: Patient seen and evaluated at bedside Discussed with attending, Dr. Patterson Afebrile Reverse heel wedge shoe ordered however the shoe dispensed was size large. PT notified for re-evaluation and to dispense medium sized shoe. Left heel wound cleansed with normal saline, bactroban applied to wound, and dressed with DSD. Continue heel offloading boots at all times while in bed Continue abx per ID - on Zyvox and Azactam day 4 Podiatry will continue to follow patient while in house
[2017-03-27] MEDS: Linezolid 600 mg in D5W 300 ml 600 MG/300 ML BAG IVPB SCH (17:09)
[2017-03-28] MEDS: Aztreonam 1 Gm in NS 100mL 100 ML IVPB SCH ×3 (06:34→22:07)
[2017-03-28] MEDS: Linezolid 600 mg in D5W 300 ml 600 MG/300 ML BAG IVPB SCH ×2 (06:35→17:45)
[2017-03-28] MEDS: Levothyroxine 75 MCG TAB PO SCH (06:36)
[2017-03-28] MEDS: Pantoprazole 40 mg EC Tab PO SCH (06:36)
[2017-03-28] MEDS: Insulin Reg-MEDIUM-Coverage SC SCH ×4 (06:38→22:07)
[2017-03-28 06:53] LABS: HEMOGLOBIN 10.5 g/dL (12.0-16.0); MEAN CELL VOLUME 95.4 fl (80.0-105.0); MEAN CORPUSCULAR HEMOGLOBIN 30.3 pg (25.0-35.0); MEAN CORPUSCULAR HGB CONC 31.8 g/dl (31.0-37.0); MEAN PLATELET VOLUME 11.7 fl (7.0-11.0); RBC 3.46 10^6/uL (3.5-6.1); RED CELL DISTRIBUTION WIDTH 13.3 % (11.5-14.5); WHITE BLOOD COUNT 5.3 10^3/ul (4.5-11.0)
[2017-03-28 07:47] LABS: ALBUMIN 3.2 g/dL (3.0-4.8); CALCIUM 8.7 mg/dL (8.4-10.5)
[2017-03-28] MEDS: Potassium Chloride 10 mEq ER Tab PO SCH (08:23)
[2017-03-28] MEDS: Metoprolol Succinate 25 mg XL Tab PO SCH (08:23)
[2017-03-28] MEDS: Cholecalciferol 1,000 INTLU TAB PO SCH (10:10)
[2017-03-28] MEDS: Bacitracin Ointment 30 GM TUBE TOP SCH ×2 (10:13→17:38)
[2017-03-28] MEDS: [UNRECOGNIZED DRUG - MIXTURE] PO SCH (10:13)
[2017-03-28] MEDS: Prostat 15 g packet GT SCH (13:40)
--- NOTE | 2017-03-28 14:11 | CP.PCM.PN ---
Subjective - Date & Time of Evaluation Date of Evaluation: 03/28/17 Time of Evaluation: 10:30 - Subjective Subjective: Comfortable, no fevers. Objective - Vital Signs/Intake and Output Vital Signs (last 24 hours): Temp Pulse Resp BP Pulse Ox 98.6 F 80 18 104/58 L 95 03/28/17 06:00 03/28/17 08:23 03/28/17 06:00 03/28/17 08:23 03/28/17 06:00 - Medications Medications: Current Medications Acetaminophen (Tylenol 325mg Tab) 650 mg PO Q4H PRN; Protocol PRN Reason: pain Last Admin: 03/27/17 22:24 Dose: 650 mg Aspirin (Ecotrin) 81 mg PO 0800 [facility] PRN Reason: Protocol Last Admin: 03/28/17 08:23 Dose: 81 mg Atorvastatin Calcium (Lipitor) 20 mg PO DIN [facility] PRN Reason: Protocol Last Admin: 03/27/17 17:08 Dose: 20 mg Bacitracin (Bacitracin) 0 gm TOP BID [facility] PRN Reason: Protocol Last Admin: 03/27/17 17:08 Dose: 1 applic Calcium Carbonate (Caltrate) 600 mg PO DAILY [facility] PRN Reason: Protocol Last Admin: 03/27/17 10:22 Dose: 600 mg Cholecalciferol (Vitamin D) 1,000 intlu PO DAILY [facility] PRN Reason: Protocol Last Admin: 03/27/17 10:23 Dose: 1,000 intlu Furosemide (Lasix) 20 mg PO DAILY [facility] PRN Reason: Protocol Last Admin: 03/27/17 10:23 Dose: 20 mg Home Med (Home Med) 1 unit PO DAILY [facility] PRN Reason: Protocol Last Admin: 03/27/17 10:26 Dose: Not Given Aztreonam (Azactam 1 Gm) 100 mls @ 100 mls/hr IVPB 0600,1400,2200 [facility] PRN Reason: Protocol Stop: 04/03/17 07:01 Last Admin: 03/28/17 06:34 Dose: 100 mls/hr Linezolid (Zyvox 600mg/300ml D5w) 600 mg in 300 mls @ 200 mls/hr IVPB 0600, 1800 [facility] PRN Reason: Protocol Stop: 04/03/17 18:01 Last Admin: 03/28/17 06:35 Dose: 200 mls/hr Insulin Human Regular (Humulin R Med) 0 units SC ACHS [facility] PRN Reason: Protocol Last Admin: 03/28/17 06:38 Dose: 3 units Levothyroxine Sodium (Synthroid) 75 mcg PO 0600 [facility] PRN Reason: Protocol Last Admin: 03/28/17 06:36 Dose: 75 mcg Lorazepam (Ativan) 2 mg PO HS PRN; Protocol PRN Reason: Anxiety Losartan Potassium (Cozaar) 25 mg PO DAILY [facility] PRN Reason: Protocol Last Admin: 03/27/17 10:22 Dose: 25 mg Metoprolol Succinate (Toprol Xl) 25 mg PO BRK [facility] PRN Reason: Protocol Last Admin: 03/28/17 08:23 Dose: Not Given Pantoprazole Sodium (Protonix Ec Tab) 40 mg PO 0600 [facility] PRN Reason: Protocol Last Admin: 03/28/17 06:36 Dose: 40 mg Potassium Chloride (Klor-Con 10) 10 meq PO 0800 [facility] PRN Reason: Protocol Last Admin: 03/28/17 08:23 Dose: 10 meq Quetiapine Fumarate (Seroquel) 25 mg PO HS [facility] PRN Reason: Protocol Last Admin: 03/27/17 22:21 Dose: 25 mg - Labs Labs: 03/28/17 06:30 03/28/17 06:30 - Constitutional Appears: Non-toxic - Head Exam Head Exam: NORMAL INSPECTION - Respiratory Exam Respiratory Exam: Decreased Breath Sounds - Cardiovascular Exam Cardiovascular Exam: +S1, +S2 - GI/Abdominal Exam GI & Abdominal Exam: Soft. absent: Tenderness - Extremities Exam Additional comments: left foot with dressings in place Assessment and Plan - Assessment and Plan (Free Text) Plan: Assessment left heel infected ulcer with cellulitis without evidence of osteomyelitis on MRI history of 2nd right toe and metatarsal head osteomyelitis S/P surgery chronic renal failure obesity with BMI 38 osteoarthritis HTN DM hypothyroidism S/P left toe amputation S/P right hip surgery Plan on Zyvox and Azactam day 5; wound cx showing only E. faecalis; follow repeat wound cx results - should complete 7-10 days of antibiotics Reviewed doppler U/S of left leg which showed normal MCKENNA and PVR
--- NOTE | 2017-03-28 23:33 | CON ---
DATE: 03/28/2017 REASON FOR CONSULTATION: Prerenal azotemia, chronic kidney disease stage 3. HISTORY OF PRESENT ILLNESS: A 81-year-old lady, known to me from recent evaluation on the medical side. The patient was admitted with ulcer of her left heel. The patient was being treated with antibiotics. She was found to have prerenal azotemia/acute kidney injury. She is now in the transitional care unit completing her antibiotics plus receiving physical therapy. She is sitting in chair. She is awake. She is alert. She is comfortable. She denies any pain. She denies any shortness of breath. PAST MEDICAL AND SURGICAL HISTORY: Obesity, osteoarthritis, hypertension, NIDDM, hypothyroidism, history of right hip surgery, chronic kidney disease stage 3. FAMILY HISTORY: Noncontributory. SOCIAL HISTORY: No smoking, no alcohol use, no IV drug abuse. ALLERGIES: PENICILLIN. CURRENT MEDICATIONS: Ativan, Azactam 1 gm q.8, bacitracin, Caltrate, losartan 25 daily, aspirin, insulin, potassium chloride, Lasix, Lipitor, Protonix, Seroquel, Synthroid, Toprol XL, Tylenol, Zyvox. REVIEW OF SYSTEMS: All systems are reviewed, pertinent positives are mentioned in history of presenting illness, rest unremarkable. ASSESSMENT AND PLAN: 1. Morbid obesity. 2. Hypertension. 3. Nsi-ebvvrkb-xrcldocll diabetes mellitus. 4. Chronic kidney disease stage 3. 5. Mild prerenal azotemia. 6. Ulcer left heel. PLAN: 1. Continue ARB. 2. Continue low-dose Lasix. 3. Avoid nephrotoxins. 4. The patient is reassured regarding her renal parameters. Her renal function is stable. I have discussed with her that her renal function is not normal but it is acceptable for her age. Thank you for the courtesy of the consultation. We will follow this patient closely with you. Nhung Alejandre MD
--- NOTE | 2017-03-29 01:56 | CON ---
DATE: IDENTIFYING INFORMATION: The patient is a 81-year-old white female with a past medical history of obesity and with BMI of 38. She also has a history of diabetes mellitus, hypertension, hypothyroidism, osteoarthritis. In 2005, she had a left toe amputation. She also had a right hip surgery and now was admitted because of worsening of the left heel ulcer. Osteomyelitis had been ruled out by MRI, but the patient still needs wound care and was transferred to the TCU. The patient resides with her daughter after having lived by herself, but concern was initiated due to her medical condition. She is [place] she grew up in as a high school graduate. She in her teens and had been until 25 years ago when her of alcohol-related causes (he may have aspirated). The couple had 5 children; however, approximately 9 years ago, her son just short of his 44th birthday, suddenly of an aortic aneurysm. The patient denies a prior psychiatric history, although she gets Ativan p.r.n. and has been on Seroquel 25 mg at bedtime which the patient indicates has been for sleep and that was started by a prior PMD (Dr. Rivers). This was continued by her next PMD, Dr. Guerrero (with both of these physicians having retired). Presently, she is under the care of Dr. Fernandez. She indicates that she keeps busy enough. She presented as being alert, oriented, cooperative, without mood or thought disturbance with her insight and judgment intact. A CBC and differential today showed lowered RBC 3.46, hemoglobin 10.5, hematocrit 33.0. Blood sugar today at 21:35 was 290. She has an elevated BUN also of 27, slightly elevated AST of 66, ALT 62 and elevated alkaline phosphatase of 214. DIAGNOSIS: Sleep disorder, not otherwise specified. I would maintain the patient on present medication. Thank you for this consultation Isac Osuna MD/ PhD
[2017-03-29] MEDS: Aztreonam 1 Gm in NS 100mL 100 ML IVPB SCH ×3 (05:28→22:00)
[2017-03-29] MEDS: Linezolid 600 mg in D5W 300 ml 600 MG/300 ML BAG IVPB SCH ×2 (05:29→18:37)
[2017-03-29] MEDS: Levothyroxine 75 MCG TAB PO SCH (05:29)
[2017-03-29] MEDS: Pantoprazole 40 mg EC Tab PO SCH (05:29)
[2017-03-29] MEDS: Insulin Reg-MEDIUM-Coverage SC SCH ×4 (07:01→22:45)
[2017-03-29] MEDS: Potassium Chloride 10 mEq ER Tab PO SCH (08:16)
[2017-03-29] MEDS: Metoprolol Succinate 25 mg XL Tab PO SCH (08:16)
[2017-03-29] MEDS: [UNRECOGNIZED DRUG - MIXTURE] PO SCH (09:51)
[2017-03-29] MEDS: Cholecalciferol 1,000 INTLU TAB PO SCH (09:52)
[2017-03-29] MEDS: Bacitracin Ointment 30 GM TUBE TOP SCH ×2 (09:57→18:26)
--- NOTE | 2017-03-29 12:23 | CP.PCM.PN ---
<Wayne Flores - Last Filed: 03/29/17 12:08> Subjective - Date & Time of Evaluation Date of Evaluation: 03/29/17 Time of Evaluation: 12:08 - Subjective Subjective: Podiatry note for Dr. Patterson/Dr. Owusu 81 year old diabetic female seen and evaluated in TCU for slowly resolving infected left heel ulceration. Patient is AAO x 3 and NAD resting comfortably in bed at time of visit. Denies any new pedal complaints. Denies any acute overnight events. Surgical shoes present bilaterally. Denies N/V/F/D/C/SOB. Objective - Vital Signs/Intake and Output Vital Signs (last 24 hours): Temp Pulse Resp BP Pulse Ox 98.6 F 80 18 110/54 L 96 03/28/17 17:41 03/29/17 08:16 03/28/17 17:41 03/29/17 09:52 03/28/17 17:41 - Medications Medications: Current Medications Acetaminophen (Tylenol 325mg Tab) 650 mg PO Q4H PRN; Protocol PRN Reason: pain Last Admin: 03/27/17 22:24 Dose: 650 mg Aspirin (Ecotrin) 81 mg PO 0800 [facility]AME PRN Reason: Protocol Last Admin: 03/29/17 08:15 Dose: 81 mg Atorvastatin Calcium (Lipitor) 20 mg PO DIN MAAME PRN Reason: Protocol Last Admin: 03/28/17 17:36 Dose: 20 mg Bacitracin (Bacitracin) 0 gm TOP BID MAAME PRN Reason: Protocol Last Admin: 03/29/17 09:57 Dose: Not Given Calcium Carbonate (Caltrate) 600 mg PO 0800 [facility]AME PRN Reason: Protocol Cholecalciferol (Vitamin D) 1,000 intlu PO DAILY [facility]AME PRN Reason: Protocol Last Admin: 03/29/17 09:52 Dose: 1,000 intlu Collagenase (Santyl) 0 gm TOP DAILY [facility] Furosemide (Lasix) 20 mg PO DAILY [facility]AME PRN Reason: Protocol Last Admin: 03/29/17 09:52 Dose: 20 mg Glipizide (Glucotrol) 2.5 mg PO 0730 [facility]AME PRN Reason: Protocol Last Admin: 03/29/17 09:50 Dose: 2.5 mg Home Med (Home Med) 1 unit PO DAILY [facility]AME PRN Reason: Protocol Last Admin: 03/29/17 09:51 Dose: Not Given Aztreonam (Azactam 1 Gm) 100 mls @ 100 mls/hr IVPB 0600,1400,2200 MAAME PRN Reason: Protocol Stop: 04/03/17 07:01 Last Admin: 03/29/17 05:28 Dose: 100 mls/hr Linezolid (Zyvox 600mg/300ml D5w) 600 mg in 300 mls @ 200 mls/hr IVPB 0600, 1800 [facility]AME PRN Reason: Protocol Stop: 04/03/17 18:01 Last Admin: 03/29/17 05:29 Dose: 200 mls/hr Insulin Human Regular (Humulin R Med) 0 units SC ACHS MAAME PRN Reason: Protocol Last Admin: 03/29/17 07:01 Dose: 3 units Levothyroxine Sodium (Synthroid) 75 mcg PO 0600 [facility]AME PRN Reason: Protocol Last Admin: 03/29/17 05:29 Dose: 75 mcg Lorazepam (Ativan) 2 mg PO HS PRN; Protocol PRN Reason: Anxiety Losartan Potassium (Cozaar) 25 mg PO DAILY [facility]AME PRN Reason: Protocol Last Admin: 03/29/17 09:49 Dose: Not Given Metoprolol Succinate (Toprol Xl) 25 mg PO BRK [facility]AME PRN Reason: Protocol Last Admin: 03/29/17 08:16 Dose: Not Given Pantoprazole Sodium (Protonix Ec Tab) 40 mg PO 0600 MAAME PRN Reason: Protocol Last Admin: 03/29/17 05:29 Dose: 40 mg Potassium Chloride (Klor-Con 10) 10 meq PO 0800 [facility]AME PRN Reason: Protocol Last Admin: 03/29/17 08:16 Dose: 10 meq Quetiapine Fumarate (Seroquel) 25 mg PO HS [facility]AME PRN Reason: Protocol Last Admin: 03/28/17 22:08 Dose: 25 mg - Labs Labs: 03/28/17 06:30 03/28/17 06:30 - Constitutional Appears: Well, Non-toxic, No Acute Distress - Extremities Exam Additional comments: VASC: DP and PT pulses nonpalpable b/l. CFT delayed. Temperature gradient warm to warm. Bilateral lower extremity edema noted. NEURO: Gross sensation absent. DERM: Full thickness ulceration located to plantar aspect of left heel measuring approximately 3 x 3 x 0.3 cm - wound base is primarily granular with moderate fibrotic tissue; mild serosanguinous drainage noted; no purulence, no malodor, no fluctuance, no undermining, no tunneling. ORTHO: Multiple amputated digits. No pain on palpation bilateral lower extremity. 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 Owusu Afebrile, Absent leukocytosis yesterday 03/28/17 Continue abx Wound dressed with bactroban, DSD Santyl ordered to be applied to wound tomorrow Podiatry will continue to follow while patient in house <Robby Owusu - Last Filed: 04/01/17 11:23> Objective - Vital Signs/Intake and Output Vital Signs (last 24 hours): Temp Pulse Resp BP Pulse Ox 98.5 F 91 H 18 122/61 98 03/31/17 17:15 04/01/17 08:11 03/31/17 17:15 04/01/17 08:11 03/31/17 17:15 - Medications Medications: Current Medications Acetaminophen (Tylenol 325mg Tab) 650 mg PO Q4H PRN; Protocol PRN Reason: pain Last Admin: 03/30/17 22:41 Dose: 650 mg Aspirin (Ecotrin) 81 mg PO 0800 [facility]AME PRN Reason: Protocol Last Admin: 04/01/17 08:11 Dose: 81 mg Atorvastatin Calcium (Lipitor) 20 mg PO DIN MAAME PRN Reason: Protocol Last Admin: 03/31/17 17:44 Dose: 20 mg Bacitracin (Bacitracin) 0 gm TOP BID MAAME PRN Reason: Protocol Last Admin: 03/31/17 17:40 Dose: 1 applic Calcium Carbonate (Caltrate) 600 mg PO 0800 MAAME PRN Reason: Protocol Last Admin: 04/01/17 08:10 Dose: 600 mg Cholecalciferol (Vitamin D) 1,000 intlu PO DAILY MAAME PRN Reason: Protocol Last Admin: 03/31/17 11:00 Dose: 1,000 intlu Collagenase (Santyl) 0 gm TOP DAILY [facility] Last Admin: 03/31/17 11:00 Dose: 1 applic Furosemide (Lasix) 20 mg PO DAILY MAAME PRN Reason: Protocol Last Admin: 03/31/17 11:00 Dose: 20 mg Glipizide (Glucotrol) 2.5 mg PO 0730 MAAME PRN Reason: Protocol Last Admin: 04/01/17 08:10 Dose: 2.5 mg Home Med (Home Med) 1 unit PO DAILY MAAME PRN Reason: Protocol Last Admin: 03/31/17 11:00 Dose: Not Given Aztreonam (Azactam 1 Gm) 100 mls @ 100 mls/hr IVPB 0600,1400,2200 MAAME PRN Reason: Protocol Stop: 04/03/17 07:01 Last Admin: 04/01/17 06:36 Dose: 100 mls/hr Linezolid (Zyvox 600mg/300ml D5w) 600 mg in 300 mls @ 200 mls/hr IVPB 0600, 1800 MAAME PRN Reason: Protocol Stop: 04/03/17 18:01 Last Admin: 04/01/17 06:37 Dose: 200 mls/hr Insulin Human Regular (Humulin R Med) 0 units SC ACHS MAAME PRN Reason: Protocol Last Admin: 04/01/17 06:38 Dose: 3 units Levothyroxine Sodium (Synthroid) 75 mcg PO 0600 [facility]AME PRN Reason: Protocol Last Admin: 04/01/17 06:35 Dose: 75 mcg Lorazepam (Ativan) 2 mg PO HS PRN; Protocol PRN Reason: Anxiety Losartan Potassium (Cozaar) 25 mg PO DAILY [facility]AME PRN Reason: Protocol Last Admin: 03/31/17 11:00 Dose: 25 mg Metoprolol Succinate (Toprol Xl) 25 mg PO BRK [facility]AME PRN Reason: Protocol Last Admin: 04/01/17 08:11 Dose: 25 mg Pantoprazole Sodium (Protonix Ec Tab) 40 mg PO 0600 [facility]AME PRN Reason: Protocol Last Admin: 04/01/17 06:35 Dose: 40 mg Potassium Chloride (Klor-Con 10) 10 meq PO 0800 [facility]AME PRN Reason: Protocol Last Admin: 04/01/17 08:11 Dose: 10 meq Quetiapine Fumarate (Seroquel) 25 mg PO HS MAAME PRN Reason: Protocol Last Admin: 03/31/17 22:35 Dose: 25 mg - Labs Labs: 03/28/17 06:30 03/28/17 06:30 Attending/Attestation - Attestation I have personally seen and examined this patient.: Yes I have fully participated in the care of the patient.: Yes I have reviewed all pertinent clinical information, including history, physical exam and plan: Yes
--- NOTE | 2017-03-29 12:36 | CP.PCM.PN ---
Subjective - Date & Time of Evaluation Date of Evaluation: 03/29/17 Time of Evaluation: 10:20 - Subjective Subjective: Comfortable, no fevers, not in distress. Objective - Vital Signs/Intake and Output Vital Signs (last 24 hours): Temp Pulse Resp BP Pulse Ox 98.6 F 80 18 110/54 L 96 03/28/17 17:41 03/29/17 08:16 03/28/17 17:41 03/29/17 08:16 03/28/17 17:41 - Medications Medications: Current Medications Acetaminophen (Tylenol 325mg Tab) 650 mg PO Q4H PRN; Protocol PRN Reason: pain Last Admin: 03/27/17 22:24 Dose: 650 mg Aspirin (Ecotrin) 81 mg PO 0800 [facility]AME PRN Reason: Protocol Last Admin: 03/29/17 08:15 Dose: 81 mg Atorvastatin Calcium (Lipitor) 20 mg PO DIN [facility]AME PRN Reason: Protocol Last Admin: 03/28/17 17:36 Dose: 20 mg Bacitracin (Bacitracin) 0 gm TOP BID [facility]AME PRN Reason: Protocol Last Admin: 03/28/17 17:38 Dose: 1 applic Calcium Carbonate (Caltrate) 600 mg PO 0800 [facility]AME PRN Reason: Protocol Cholecalciferol (Vitamin D) 1,000 intlu PO DAILY [facility]AME PRN Reason: Protocol Last Admin: 03/28/17 10:10 Dose: 1,000 intlu Furosemide (Lasix) 20 mg PO DAILY [facility]AME PRN Reason: Protocol Last Admin: 03/28/17 10:11 Dose: 20 mg Glipizide (Glucotrol) 2.5 mg PO 0730 MAAME PRN Reason: Protocol Home Med (Home Med) 1 unit PO DAILY [facility]AME PRN Reason: Protocol Last Admin: 03/28/17 10:13 Dose: Not Given Aztreonam (Azactam 1 Gm) 100 mls @ 100 mls/hr IVPB 0600,1400,2200 MAAME PRN Reason: Protocol Stop: 04/03/17 07:01 Last Admin: 03/29/17 05:28 Dose: 100 mls/hr Linezolid (Zyvox 600mg/300ml D5w) 600 mg in 300 mls @ 200 mls/hr IVPB 0600, 1800 [facility]AME PRN Reason: Protocol Stop: 04/03/17 18:01 Last Admin: 03/29/17 05:29 Dose: 200 mls/hr Insulin Human Regular (Humulin R Med) 0 units SC ACHS MAAME PRN Reason: Protocol Last Admin: 03/29/17 07:01 Dose: 3 units Levothyroxine Sodium (Synthroid) 75 mcg PO 0600 MAAME PRN Reason: Protocol Last Admin: 03/29/17 05:29 Dose: 75 mcg Lorazepam (Ativan) 2 mg PO HS PRN; Protocol PRN Reason: Anxiety Losartan Potassium (Cozaar) 25 mg PO DAILY [facility]AME PRN Reason: Protocol Last Admin: 03/28/17 10:10 Dose: 25 mg Metoprolol Succinate (Toprol Xl) 25 mg PO BRK MAAME PRN Reason: Protocol Last Admin: 03/29/17 08:16 Dose: Not Given Pantoprazole Sodium (Protonix Ec Tab) 40 mg PO 0600 [facility]AME PRN Reason: Protocol Last Admin: 03/29/17 05:29 Dose: 40 mg Potassium Chloride (Klor-Con 10) 10 meq PO 0800 MAAME PRN Reason: Protocol Last Admin: 03/29/17 08:16 Dose: 10 meq Quetiapine Fumarate (Seroquel) 25 mg PO HS MAAME PRN Reason: Protocol Last Admin: 03/28/17 22:08 Dose: 25 mg - Labs Labs: 03/28/17 06:30 03/28/17 06:30 - Constitutional Appears: Non-toxic, Chronically Ill - Head Exam Head Exam: NORMAL INSPECTION - ENT Exam ENT Exam: Mucous Membranes Moist - Respiratory Exam Respiratory Exam: Decreased Breath Sounds - Cardiovascular Exam Cardiovascular Exam: +S1, +S2 - GI/Abdominal Exam GI & Abdominal Exam: Soft. absent: Tenderness - Extremities Exam Additional comments: left foot with dressings in place Assessment and Plan - Assessment and Plan (Free Text) Plan: Assessment left heel infected ulcer with cellulitis without evidence of osteomyelitis on MRI history of 2nd right toe and metatarsal head osteomyelitis S/P surgery chronic renal failure obesity with BMI 38 osteoarthritis HTN DM hypothyroidism S/P left toe amputation S/P right hip surgery Plan on Zyvox and Azactam day 6; wound cx showing only E. faecalis; follow repeat wound cx results - should complete 7-10 days of antibiotics Reviewed doppler U/S of left leg which showed normal MCKENNA and PVR
--- NOTE | 2017-03-29 17:16 | PN ---
DATE: SUBJECTIVE: The patient is currently seen in the TCU. She is lying comfortable, sitting in a chair. She is continuing antibiotic therapy for the ulcer of her left heel. She appears to be in no acute distress. MEDICATIONS: Medication reviewed. The patient is on Ativan, Azactam, bacitracin, Caltrate, losartan, Ecotrin, Glucotrol, Centrum Silver, insulin, K-Tabs, Lasix, Lipitor, Protonix, Santyl, Seroquel, Synthroid, Toprol, Tylenol p.r.n., vitamin D, and IV Zyvox. OBJECTIVE: VITAL SIGNS: Blood pressure 110/54, heart rate 80, temperature 98.6, respiratory rate is 18. HEENT: Shows her to be normocephalic, atraumatic. Conjunctivae are pale. Sclerae are nonicteric. NECK: Supple. No neck vein distention. CHEST: Clear to auscultation and percussion. No rales, no rhonchi, or wheezing. CARDIOVASCULAR: Shows a regular rate and rhythm without murmurs, rubs, or gallops. ABDOMEN: Soft. Bowel sounds normal. No rebound or guarding or masses. EXTREMITIES: Show no cyanosis, clubbing, or edema. Both legs are wrapped with an Satish bandage. She has dressings on her feet bilaterally. These were not removed. LABORATORY DATA AND IMAGING: CBC from yesterday white blood cell count 5.3, hemoglobin 10.5, platelet count 170,000. Chemistries from yesterday showed normal electrolytes. BUN slightly elevated at 27. The patient is on Lasix, creatinine 1.1, stable. Glucose 227. Calcium 8.7. Mild elevation of her liver enzymes. Albumin is 3.2. ASSESSMENT: 1. Mild elevation of BUN in a patient with a creatinine which is stable at 1-1.1 range. 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 Mild elevation of BUN is likely secondary to continued use of low-dose diuretic therapy. A 24-hour urine was done on acute care showed a creatinine clearance of 35 mL per minute with 230 mg of protein in her urine. 3. Left heel infection with cellulitis. The patient is receiving appropriate antibiotic therapy as per Infectious Disease. 4. History of hypertension. Blood pressure control is acceptable. 5. Hyperlipidemia. The patient will continue diet and statin therapy. 6. History of hypothyroidism. The patient will continue thyroid replacement therapy. 7. History of peripheral vascular disease, status post amputation of her left big toe and right second toe. PLAN: 1. From a renal standpoint, the patient appears to be entirely stable. Slight elevation of BUN is likely secondary to continued use of low-dose diuretic therapy. 2. As per Infectious Disease, the patient will complete a course of IV antibiotic therapy. 3. Continue to monitor her diabetes closely with adjustment of her sliding scale insulin. 4. I will discontinue renal followup at this time. Please re-consult on a p.r.n. basis. Erwin Reyes MD
[2017-03-30] MEDS: Aztreonam 1 Gm in NS 100mL 100 ML IVPB SCH ×3 (05:43→22:38)
[2017-03-30] MEDS: Pantoprazole 40 mg EC Tab PO SCH (05:44)
[2017-03-30] MEDS: Levothyroxine 75 MCG TAB PO SCH (05:44)
[2017-03-30] MEDS: Linezolid 600 mg in D5W 300 ml 600 MG/300 ML BAG IVPB SCH ×2 (05:45→17:18)
[2017-03-30] MEDS: Potassium Chloride 10 mEq ER Tab PO SCH (08:57)
[2017-03-30] MEDS: Metoprolol Succinate 25 mg XL Tab PO SCH (08:58)
[2017-03-30] MEDS ORDERED: Insulin Human NPH/Reg 70/30 Vial(3 ml) SC SCH (10:00)
[2017-03-30] MEDS ORDERED: Collagenase 250 Units/gm Ointment(30 gm) TOP SCH (10:00)
[2017-03-30] MEDS: Bacitracin Ointment 30 GM TUBE TOP SCH ×2 (10:05→17:17)
[2017-03-30] MEDS: [UNRECOGNIZED DRUG - MIXTURE] PO SCH (10:08)
[2017-03-30] MEDS: Cholecalciferol 1,000 INTLU TAB PO SCH (10:11)
[2017-03-30] MEDS: Collagenase 250 Units/gm Ointment(30 gm) TOP SCH (10:11)
[2017-03-30] MEDS: Insulin Reg-MEDIUM-Coverage SC SCH ×3 (11:56→22:58)
--- NOTE | 2017-03-30 16:36 | CP.PCM.PN ---
Subjective - Date & Time of Evaluation Date of Evaluation: 03/30/17 Time of Evaluation: 11:05 - Subjective Subjective: Comfortable, not in distress, afebrile, no nausea or diarrhea. Objective - Vital Signs/Intake and Output Vital Signs (last 24 hours): Temp Pulse Resp BP Pulse Ox 98.5 F 89 17 135/72 96 03/29/17 17:34 03/30/17 08:58 03/29/17 17:34 03/30/17 08:58 03/28/17 17:41 - Medications Medications: Current Medications Acetaminophen (Tylenol 325mg Tab) 650 mg PO Q4H PRN; Protocol PRN Reason: pain Last Admin: 03/29/17 22:07 Dose: 325 mg Aspirin (Ecotrin) 81 mg PO 0800 [facility]AME PRN Reason: Protocol Last Admin: 03/30/17 08:57 Dose: 81 mg Atorvastatin Calcium (Lipitor) 20 mg PO DIN [facility]AME PRN Reason: Protocol Last Admin: 03/29/17 18:35 Dose: 20 mg Bacitracin (Bacitracin) 0 gm TOP BID [facility]AME PRN Reason: Protocol Last Admin: 03/29/17 18:26 Dose: Not Given Calcium Carbonate (Caltrate) 600 mg PO 0800 [facility]AME PRN Reason: Protocol Last Admin: 03/30/17 08:57 Dose: 600 mg Cholecalciferol (Vitamin D) 1,000 intlu PO DAILY [facility] PRN Reason: Protocol Last Admin: 03/29/17 09:52 Dose: 1,000 intlu Collagenase (Santyl) 0 gm TOP DAILY [facility] Furosemide (Lasix) 20 mg PO DAILY [facility]AME PRN Reason: Protocol Last Admin: 03/29/17 09:52 Dose: 20 mg Glipizide (Glucotrol) 2.5 mg PO 0730 [facility]AME PRN Reason: Protocol Last Admin: 03/30/17 08:56 Dose: 2.5 mg Home Med (Home Med) 1 unit PO DAILY [facility]AME PRN Reason: Protocol Last Admin: 03/29/17 09:51 Dose: Not Given Aztreonam (Azactam 1 Gm) 100 mls @ 100 mls/hr IVPB 0600,1400,2200 MAAME PRN Reason: Protocol Stop: 04/03/17 07:01 Last Admin: 03/30/17 05:43 Dose: 100 mls/hr Linezolid (Zyvox 600mg/300ml D5w) 600 mg in 300 mls @ 200 mls/hr IVPB 0600, 1800 MAAME PRN Reason: Protocol Stop: 04/03/17 18:01 Last Admin: 03/30/17 05:45 Dose: 200 mls/hr Insulin Human Regular (Humulin R Med) 0 units SC ACHS [facility]AME PRN Reason: Protocol Last Admin: 03/29/17 22:45 Dose: Not Given Levothyroxine Sodium (Synthroid) 75 mcg PO 0600 [facility]AME PRN Reason: Protocol Last Admin: 03/30/17 05:44 Dose: 75 mcg Lorazepam (Ativan) 2 mg PO HS PRN; Protocol PRN Reason: Anxiety Losartan Potassium (Cozaar) 25 mg PO DAILY [facility]AME PRN Reason: Protocol Last Admin: 03/29/17 09:49 Dose: Not Given Metoprolol Succinate (Toprol Xl) 25 mg PO BRK [facility]AME PRN Reason: Protocol Last Admin: 03/30/17 08:58 Dose: 25 mg Pantoprazole Sodium (Protonix Ec Tab) 40 mg PO 0600 MAAME PRN Reason: Protocol Last Admin: 03/30/17 05:44 Dose: 40 mg Potassium Chloride (Klor-Con 10) 10 meq PO 0800 MAAME PRN Reason: Protocol Last Admin: 03/30/17 08:57 Dose: 10 meq Quetiapine Fumarate (Seroquel) 25 mg PO HS MAAME PRN Reason: Protocol Last Admin: 03/29/17 22:01 Dose: 25 mg - Labs Labs: 03/28/17 06:30 03/28/17 06:30 - Constitutional Appears: Non-toxic - Head Exam Head Exam: NORMAL INSPECTION - ENT Exam ENT Exam: Mucous Membranes Moist - Neck Exam Neck Exam: absent: Meningismus - Respiratory Exam Respiratory Exam: Decreased Breath Sounds - Cardiovascular Exam Cardiovascular Exam: +S1, +S2 - GI/Abdominal Exam GI & Abdominal Exam: Soft. absent: Tenderness - Extremities Exam Additional comments: left foot with dressings in place Assessment and Plan - Assessment and Plan (Free Text) Plan: Assessment left heel infected ulcer with cellulitis without evidence of osteomyelitis on MRI history of 2nd right toe and metatarsal head osteomyelitis S/P surgery chronic renal failure obesity with BMI 38 osteoarthritis HTN DM hypothyroidism S/P left toe amputation S/P right hip surgery Plan on Zyvox and Azactam day 7; wound cx showing only E. faecalis; follow repeat wound cx results - should complete 7-10 days of antibiotics Reviewed doppler U/S of left leg which showed normal MCKENNA and PVR
[2017-03-30] MEDS: Insulin Human NPH/Reg 70/30 Vial(3 ml) SC SCH (17:17)
--- NOTE | 2017-03-30 18:22 | CP.PCM.PN ---
Subjective - Date & Time of Evaluation Date of Evaluation: 03/30/17 Time of Evaluation: 18:20 - Subjective Subjective: Podiatry note for Dr. Patterson/Dr. Owusu 81 year old diabetic female seen and evaluated in TCU for slowly resolving infected left heel ulceration. Patient is AAO x 3 and NAD resting comfortably in chair at time of visit. Denies any new pedal complaints. Denies any acute overnight events. Surgical shoes present bilaterally. Denies N/V/F/D/C/SOB. Objective - Vital Signs/Intake and Output Vital Signs (last 24 hours): Temp Pulse Resp BP Pulse Ox 98 F 90 16 132/63 97 03/30/17 16:00 03/30/17 16:00 03/30/17 16:00 03/30/17 16:00 03/30/17 16:00 - Medications Medications: Current Medications Acetaminophen (Tylenol 325mg Tab) 650 mg PO Q4H PRN; Protocol PRN Reason: pain Last Admin: 03/29/17 22:07 Dose: 325 mg Aspirin (Ecotrin) 81 mg PO 0800 [facility]AME PRN Reason: Protocol Last Admin: 03/30/17 08:57 Dose: 81 mg Atorvastatin Calcium (Lipitor) 20 mg PO DIN [facility]AME PRN Reason: Protocol Last Admin: 03/30/17 17:20 Dose: 20 mg Bacitracin (Bacitracin) 0 gm TOP BID [facility]AME PRN Reason: Protocol Last Admin: 03/30/17 17:17 Dose: 1 applic Calcium Carbonate (Caltrate) 600 mg PO 0800 [facility]AME PRN Reason: Protocol Last Admin: 03/30/17 08:57 Dose: 600 mg Cholecalciferol (Vitamin D) 1,000 intlu PO DAILY [facility]AME PRN Reason: Protocol Last Admin: 03/30/17 10:11 Dose: 1,000 intlu Collagenase (Santyl) 0 gm TOP DAILY [facility]AME Last Admin: 03/30/17 10:11 Dose: 1 applic Furosemide (Lasix) 20 mg PO DAILY [facility]AME PRN Reason: Protocol Last Admin: 03/30/17 10:10 Dose: 20 mg Glipizide (Glucotrol) 2.5 mg PO 0730 [facility]AME PRN Reason: Protocol Last Admin: 03/30/17 08:56 Dose: 2.5 mg Home Med (Home Med) 1 unit PO DAILY [facility]AME PRN Reason: Protocol Last Admin: 03/30/17 10:08 Dose: Not Given Aztreonam (Azactam 1 Gm) 100 mls @ 100 mls/hr IVPB 0600,1400,2200 [facility]AME PRN Reason: Protocol Stop: 04/03/17 07:01 Last Admin: 03/30/17 14:58 Dose: 100 mls/hr Linezolid (Zyvox 600mg/300ml D5w) 600 mg in 300 mls @ 200 mls/hr IVPB 0600, 1800 [facility]AME PRN Reason: Protocol Stop: 04/03/17 18:01 Last Admin: 03/30/17 17:18 Dose: 200 mls/hr Insulin Human Regular (Humulin R Med) 0 units SC ACHS [facility]AME PRN Reason: Protocol Last Admin: 03/30/17 17:17 Dose: 1 units Levothyroxine Sodium (Synthroid) 75 mcg PO 0600 [facility]AME PRN Reason: Protocol Last Admin: 03/30/17 05:44 Dose: 75 mcg Lorazepam (Ativan) 2 mg PO HS PRN; Protocol PRN Reason: Anxiety Losartan Potassium (Cozaar) 25 mg PO DAILY [facility]AME PRN Reason: Protocol Last Admin: 03/30/17 10:09 Dose: 25 mg Metoprolol Succinate (Toprol Xl) 25 mg PO BRK [facility]AME PRN Reason: Protocol Last Admin: 03/30/17 08:58 Dose: 25 mg Pantoprazole Sodium (Protonix Ec Tab) 40 mg PO 0600 [facility]AME PRN Reason: Protocol Last Admin: 03/30/17 05:44 Dose: 40 mg Potassium Chloride (Klor-Con 10) 10 meq PO 0800 [facility]AME PRN Reason: Protocol Last Admin: 03/30/17 08:57 Dose: 10 meq Quetiapine Fumarate (Seroquel) 25 mg PO HS [facility]AME PRN Reason: Protocol Last Admin: 03/29/17 22:01 Dose: 25 mg - Labs Labs: 03/28/17 06:30 03/28/17 06:30 - Constitutional Appears: Well, Non-toxic, No Acute Distress - Extremities Exam Additional comments: VASC: DP and PT pulses nonpalpable b/l. CFT delayed. Temperature gradient warm to warm. Bilateral lower extremity edema noted. NEURO: Gross sensation absent. DERM: Full thickness ulceration located to plantar aspect of left heel measuring approximately 3 x 3 x 0.3 cm - wound base is primarily granular with moderate fibrotic tissue; mild serosanguinous drainage noted; no purulence, no malodor, no fluctuance, no undermining, no tunneling. ORTHO: Multiple amputated digits. No pain on palpation bilateral lower extremity. 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 Leonardo Rhoadesle Santyl applied to posterior heel wound and wound dressed with gauze, kirlix and tubigrip Podiatry will continue to follow while patient in house
--- NOTE | 2017-03-30 21:29 | PN ---
SUBJECTIVE: Patient has no complaints. No headache, no dizziness, no nausea. PHYSICAL EXAMINATION VITAL SIGNS: Temperature is 98, pulse is 90, blood pressure is 132/63, respirations 16. GENERAL: Patient is lying in bed, flat, comfortable. HEENT: No oral lesion. Anicteric sclerae. Moist mucosa. NECK: No JVD, adenopathy, or thyromegaly. CARDIOVASCULAR: S1 and S2, regular. No murmurs, rubs, or gallops. LUNGS: Clear to auscultation bilaterally. No wheeze, rales, or rhonchi. ABDOMEN: Bowel sounds are positive, soft, nontender and nondistended. EXTREMITIES: No cyanosis, clubbing or edema. LABS: White count 5.3, hemoglobin 10.5, creatinine is 1.1. ASSESSMENT: 1. Acute kidney injury, improved. 2. Left diabetic foot ulcer. 3. Hypertension. 4. Dyslipidemia. 5. Hypothyroidism. 6. Diabetes type 2. 7. Peripheral arterial disease. 8. Obesity with BMI of 38. PLAN: The patient is currently comfortable. Patient has creatinine back to baseline at 1.1. She is on Ativan. She is going to continue with calcium replacement. She is on losartan. She is on aspirin. She is going to continue with Glucotrol for her diabetes. She is on insulin for her elevated sugars. Her sugars have been improving as I started her on insulin. The patient is on Lasix daily. She is receiving Synthroid for hypothyroidism. She is on linezolid for her antibiotics. Patient is on Azactam 7 out of 7 days. Doppler's have been normal for signs of peripheral arterial disease. Chriss Ivey MD
[2017-03-31] MEDS: Pantoprazole 40 mg EC Tab PO SCH (06:32)
[2017-03-31] MEDS: Aztreonam 1 Gm in NS 100mL 100 ML IVPB SCH ×3 (06:32→22:36)
[2017-03-31] MEDS: Levothyroxine 75 MCG TAB PO SCH (06:33)
[2017-03-31] MEDS: Insulin Human NPH/Reg 70/30 Vial(3 ml) SC SCH ×2 (06:35→17:42)
[2017-03-31] MEDS: Insulin Reg-MEDIUM-Coverage SC SCH ×4 (06:39→22:43)
[2017-03-31] MEDS: Potassium Chloride 10 mEq ER Tab PO SCH (08:05)
[2017-03-31] MEDS: Linezolid 600 mg in D5W 300 ml 600 MG/300 ML BAG IVPB SCH ×2 (08:39→17:45)
[2017-03-31] MEDS: Metoprolol Succinate 25 mg XL Tab PO SCH (08:40)
[2017-03-31] MEDS: Collagenase 250 Units/gm Ointment(30 gm) TOP SCH (11:00)
[2017-03-31] MEDS: Cholecalciferol 1,000 INTLU TAB PO SCH (11:00)
[2017-03-31] MEDS: Bacitracin Ointment 30 GM TUBE TOP SCH ×2 (11:00→17:40)
[2017-03-31] MEDS: [UNRECOGNIZED DRUG - MIXTURE] PO SCH (11:00)
--- NOTE | 2017-03-31 13:57 | CP.PCM.PN ---
Subjective - Date & Time of Evaluation Date of Evaluation: 03/31/17 Time of Evaluation: 13:55 - Subjective Subjective: Podiatry note for Dr. Patterson/Dr. Owusu 81 year old diabetic female seen and evaluated in TCU for slowly resolving infected left heel ulceration. Patient is AAO x 3 and NAD resting comfortably in chair at time of visit. Denies any new pedal complaints. Denies any acute overnight events. States that PT is going well. Surgical shoes present bilaterally. Denies N/V/F/D/C/SOB. Objective - Vital Signs/Intake and Output Vital Signs (last 24 hours): Temp Pulse Resp BP Pulse Ox 97.9 F 89 18 141/68 96 03/31/17 06:00 03/31/17 11:00 03/31/17 06:00 03/31/17 11:00 03/31/17 06:00 - Medications Medications: Current Medications Acetaminophen (Tylenol 325mg Tab) 650 mg PO Q4H PRN; Protocol PRN Reason: pain Last Admin: 03/30/17 22:41 Dose: 650 mg Aspirin (Ecotrin) 81 mg PO 0800 [facility] PRN Reason: Protocol Last Admin: 03/31/17 08:04 Dose: 81 mg Atorvastatin Calcium (Lipitor) 20 mg PO DIN [facility] PRN Reason: Protocol Last Admin: 03/30/17 17:20 Dose: 20 mg Bacitracin (Bacitracin) 0 gm TOP BID [facility] PRN Reason: Protocol Last Admin: 03/31/17 11:00 Dose: 1 applic Calcium Carbonate (Caltrate) 600 mg PO 0800 [facility] PRN Reason: Protocol Last Admin: 03/31/17 08:03 Dose: 600 mg Cholecalciferol (Vitamin D) 1,000 intlu PO DAILY [facility] PRN Reason: Protocol Last Admin: 03/31/17 11:00 Dose: 1,000 intlu Collagenase (Santyl) 0 gm TOP DAILY [facility] Last Admin: 03/31/17 11:00 Dose: 1 applic Furosemide (Lasix) 20 mg PO DAILY [facility] PRN Reason: Protocol Last Admin: 03/31/17 11:00 Dose: 20 mg Glipizide (Glucotrol) 2.5 mg PO 0730 [facility] PRN Reason: Protocol Last Admin: 03/31/17 08:04 Dose: 2.5 mg Home Med (Home Med) 1 unit PO DAILY [facility] PRN Reason: Protocol Last Admin: 03/31/17 11:00 Dose: Not Given Aztreonam (Azactam 1 Gm) 100 mls @ 100 mls/hr IVPB 0600,1400,2200 [facility] PRN Reason: Protocol Stop: 04/03/17 07:01 Last Admin: 03/31/17 13:38 Dose: 100 mls/hr Linezolid (Zyvox 600mg/300ml D5w) 600 mg in 300 mls @ 200 mls/hr IVPB 0600, 1800 [facility] PRN Reason: Protocol Stop: 04/03/17 18:01 Last Admin: 03/31/17 08:39 Dose: 200 mls/hr Insulin Human Regular (Humulin R Med) 0 units SC ACHS [facility] PRN Reason: Protocol Last Admin: 03/31/17 12:30 Dose: 1 units Levothyroxine Sodium (Synthroid) 75 mcg PO 0600 [facility] PRN Reason: Protocol Last Admin: 03/31/17 06:33 Dose: 75 mcg Lorazepam (Ativan) 2 mg PO HS PRN; Protocol PRN Reason: Anxiety Losartan Potassium (Cozaar) 25 mg PO DAILY [facility] PRN Reason: Protocol Last Admin: 03/31/17 11:00 Dose: 25 mg Metoprolol Succinate (Toprol Xl) 25 mg PO BRK [facility] PRN Reason: Protocol Last Admin: 03/31/17 08:40 Dose: 25 mg Pantoprazole Sodium (Protonix Ec Tab) 40 mg PO 0600 [facility] PRN Reason: Protocol Last Admin: 03/31/17 06:32 Dose: 40 mg Potassium Chloride (Klor-Con 10) 10 meq PO 0800 [facility] PRN Reason: Protocol Last Admin: 03/31/17 08:05 Dose: 10 meq Quetiapine Fumarate (Seroquel) 25 mg PO HS [facility] PRN Reason: Protocol Last Admin: 03/30/17 22:39 Dose: 25 mg - Labs Labs: 03/28/17 06:30 03/28/17 06:30 - Constitutional Appears: Well, Non-toxic, No Acute Distress - Extremities Exam Additional comments: VASC: DP and PT pulses nonpalpable b/l. CFT delayed. Temperature gradient warm to warm. Bilateral lower extremity edema noted. NEURO: Gross sensation absent. DERM: Full thickness ulceration located to plantar aspect of left heel measuring approximately 3 x 3 x 0.3 cm - wound base is primarily granular with moderate fibrotic tissue; mild serosanguinous drainage noted; no purulence, no malodor, no fluctuance, no undermining, no tunneling. ORTHO: Multiple amputated digits. No pain on palpation bilateral lower extremity. 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 Patterson Afebrile Left heel wound mechanically debrided with saline soaked gauze Santyl applied to posterior heel wound and wound dressed with gauze, kirlix and tubigrip No surgical intervention planned at this time Podiatry will continue to follow while patient in house
--- NOTE | 2017-03-31 14:41 | CP.PCM.PN ---
Subjective - Date & Time of Evaluation Date of Evaluation: 03/31/17 Time of Evaluation: 12:15 - Subjective Subjective: Comfortable on a chair, no pain in her left heel currently, no fever, no diarrhea. Objective - Vital Signs/Intake and Output Vital Signs (last 24 hours): Temp Pulse Resp BP Pulse Ox 98 F 90 16 132/63 97 03/30/17 16:00 03/30/17 16:00 03/30/17 16:00 03/30/17 16:00 03/30/17 16:00 - Medications Medications: Current Medications Acetaminophen (Tylenol 325mg Tab) 650 mg PO Q4H PRN; Protocol PRN Reason: pain Last Admin: 03/30/17 22:41 Dose: 650 mg Aspirin (Ecotrin) 81 mg PO 0800 [facility] PRN Reason: Protocol Last Admin: 03/30/17 08:57 Dose: 81 mg Atorvastatin Calcium (Lipitor) 20 mg PO DIN [facility] PRN Reason: Protocol Last Admin: 03/30/17 17:20 Dose: 20 mg Bacitracin (Bacitracin) 0 gm TOP BID [facility] PRN Reason: Protocol Last Admin: 03/30/17 17:17 Dose: 1 applic Calcium Carbonate (Caltrate) 600 mg PO 0800 [facility] PRN Reason: Protocol Last Admin: 03/30/17 08:57 Dose: 600 mg Cholecalciferol (Vitamin D) 1,000 intlu PO DAILY [facility] PRN Reason: Protocol Last Admin: 03/30/17 10:11 Dose: 1,000 intlu Collagenase (Santyl) 0 gm TOP DAILY [facility] Last Admin: 03/30/17 10:11 Dose: 1 applic Furosemide (Lasix) 20 mg PO DAILY [facility] PRN Reason: Protocol Last Admin: 03/30/17 10:10 Dose: 20 mg Glipizide (Glucotrol) 2.5 mg PO 0730 [facility] PRN Reason: Protocol Last Admin: 03/30/17 08:56 Dose: 2.5 mg Home Med (Home Med) 1 unit PO DAILY [facility] PRN Reason: Protocol Last Admin: 03/30/17 10:08 Dose: Not Given Aztreonam (Azactam 1 Gm) 100 mls @ 100 mls/hr IVPB 0600,1400,2200 [facility] PRN Reason: Protocol Stop: 04/03/17 07:01 Last Admin: 03/31/17 06:32 Dose: 100 mls/hr Linezolid (Zyvox 600mg/300ml D5w) 600 mg in 300 mls @ 200 mls/hr IVPB 0600, 1800 [facility] PRN Reason: Protocol Stop: 04/03/17 18:01 Last Admin: 03/30/17 17:18 Dose: 200 mls/hr Insulin Human Regular (Humulin R Med) 0 units SC ACHS [facility] PRN Reason: Protocol Last Admin: 03/31/17 06:39 Dose: Not Given Levothyroxine Sodium (Synthroid) 75 mcg PO 0600 [facility] PRN Reason: Protocol Last Admin: 03/31/17 06:33 Dose: 75 mcg Lorazepam (Ativan) 2 mg PO HS PRN; Protocol PRN Reason: Anxiety Losartan Potassium (Cozaar) 25 mg PO DAILY [facility] PRN Reason: Protocol Last Admin: 03/30/17 10:09 Dose: 25 mg Metoprolol Succinate (Toprol Xl) 25 mg PO BRK [facility] PRN Reason: Protocol Last Admin: 03/30/17 08:58 Dose: 25 mg Pantoprazole Sodium (Protonix Ec Tab) 40 mg PO 0600 [facility] PRN Reason: Protocol Last Admin: 03/31/17 06:32 Dose: 40 mg Potassium Chloride (Klor-Con 10) 10 meq PO 0800 [facility] PRN Reason: Protocol Last Admin: 03/30/17 08:57 Dose: 10 meq Quetiapine Fumarate (Seroquel) 25 mg PO HS [facility] PRN Reason: Protocol Last Admin: 03/30/17 22:39 Dose: 25 mg - Labs Labs: 03/28/17 06:30 03/28/17 06:30 - Constitutional Appears: Non-toxic - Head Exam Head Exam: NORMAL INSPECTION - ENT Exam ENT Exam: Mucous Membranes Moist - Neck Exam Neck Exam: absent: Meningismus - Respiratory Exam Respiratory Exam: Decreased Breath Sounds - Cardiovascular Exam Cardiovascular Exam: +S1, +S2 - GI/Abdominal Exam GI & Abdominal Exam: Soft. absent: Tenderness Assessment and Plan - Assessment and Plan (Free Text) Plan: Assessment left heel infected ulcer with cellulitis without evidence of osteomyelitis on MRI history of 2nd right toe and metatarsal head osteomyelitis S/P surgery chronic renal failure obesity with BMI 38 osteoarthritis HTN DM hypothyroidism S/P left toe amputation S/P right hip surgery Plan on Zyvox and Azactam day 8; wound cx showing only E. faecalis; follow repeat wound cx results - should complete 7-10 days of antibiotics Reviewed doppler U/S of left leg which showed normal MCKENNA and PVR
[2017-04-01] MEDS: Levothyroxine 75 MCG TAB PO SCH (06:35)
[2017-04-01] MEDS: Pantoprazole 40 mg EC Tab PO SCH (06:35)
[2017-04-01] MEDS: Aztreonam 1 Gm in NS 100mL 100 ML IVPB SCH ×3 (06:36→23:17)
[2017-04-01] MEDS: Linezolid 600 mg in D5W 300 ml 600 MG/300 ML BAG IVPB SCH ×2 (06:37→17:23)
[2017-04-01] MEDS: Insulin Reg-MEDIUM-Coverage SC SCH ×4 (06:38→22:55)
[2017-04-01] MEDS: Insulin Human NPH/Reg 70/30 Vial(3 ml) SC SCH ×2 (06:39→17:23)
[2017-04-01] MEDS: Potassium Chloride 10 mEq ER Tab PO SCH (08:11)
[2017-04-01] MEDS: Metoprolol Succinate 25 mg XL Tab PO SCH (08:11)
[2017-04-01] MEDS: Bacitracin Ointment 30 GM TUBE TOP SCH ×2 (10:06→17:22)
[2017-04-01] MEDS: Collagenase 250 Units/gm Ointment(30 gm) TOP SCH (10:09)
[2017-04-01] MEDS: [UNRECOGNIZED DRUG - MIXTURE] PO SCH (10:09)
[2017-04-01] MEDS: Cholecalciferol 1,000 INTLU TAB PO SCH (11:35)
--- NOTE | 2017-04-01 14:05 | CP.PCM.PN ---
Subjective - Date & Time of Evaluation Date of Evaluation: 04/01/17 Time of Evaluation: 12:00 - Subjective Subjective: Comfortable on a chair, no pain in the left foot, no nausea or diarrhea. No fevers. Objective - Vital Signs/Intake and Output Vital Signs (last 24 hours): Temp Pulse Resp BP Pulse Ox 98.5 F 94 H 18 101/46 L 98 03/31/17 17:15 03/31/17 17:15 03/31/17 17:15 03/31/17 17:15 03/31/17 17:15 - Medications Medications: Current Medications Acetaminophen (Tylenol 325mg Tab) 650 mg PO Q4H PRN; Protocol PRN Reason: pain Last Admin: 03/30/17 22:41 Dose: 650 mg Aspirin (Ecotrin) 81 mg PO 0800 [facility] PRN Reason: Protocol Last Admin: 03/31/17 08:04 Dose: 81 mg Atorvastatin Calcium (Lipitor) 20 mg PO DIN [facility] PRN Reason: Protocol Last Admin: 03/31/17 17:44 Dose: 20 mg Bacitracin (Bacitracin) 0 gm TOP BID [facility] PRN Reason: Protocol Last Admin: 03/31/17 17:40 Dose: 1 applic Calcium Carbonate (Caltrate) 600 mg PO 0800 [facility] PRN Reason: Protocol Last Admin: 03/31/17 08:03 Dose: 600 mg Cholecalciferol (Vitamin D) 1,000 intlu PO DAILY [facility] PRN Reason: Protocol Last Admin: 03/31/17 11:00 Dose: 1,000 intlu Collagenase (Santyl) 0 gm TOP DAILY [facility] Last Admin: 03/31/17 11:00 Dose: 1 applic Furosemide (Lasix) 20 mg PO DAILY [facility] PRN Reason: Protocol Last Admin: 03/31/17 11:00 Dose: 20 mg Glipizide (Glucotrol) 2.5 mg PO 0730 [facility] PRN Reason: Protocol Last Admin: 03/31/17 08:04 Dose: 2.5 mg Home Med (Home Med) 1 unit PO DAILY [facility] PRN Reason: Protocol Last Admin: 03/31/17 11:00 Dose: Not Given Aztreonam (Azactam 1 Gm) 100 mls @ 100 mls/hr IVPB 0600,1400,2200 [facility] PRN Reason: Protocol Stop: 04/03/17 07:01 Last Admin: 04/01/17 06:36 Dose: 100 mls/hr Linezolid (Zyvox 600mg/300ml D5w) 600 mg in 300 mls @ 200 mls/hr IVPB 0600, 1800 [facility] PRN Reason: Protocol Stop: 04/03/17 18:01 Last Admin: 04/01/17 06:37 Dose: 200 mls/hr Insulin Human Regular (Humulin R Med) 0 units SC ACHS [facility] PRN Reason: Protocol Last Admin: 04/01/17 06:38 Dose: 3 units Levothyroxine Sodium (Synthroid) 75 mcg PO 0600 [facility] PRN Reason: Protocol Last Admin: 04/01/17 06:35 Dose: 75 mcg Lorazepam (Ativan) 2 mg PO HS PRN; Protocol PRN Reason: Anxiety Losartan Potassium (Cozaar) 25 mg PO DAILY [facility] PRN Reason: Protocol Last Admin: 03/31/17 11:00 Dose: 25 mg Metoprolol Succinate (Toprol Xl) 25 mg PO BRK [facility] PRN Reason: Protocol Last Admin: 03/31/17 08:40 Dose: 25 mg Pantoprazole Sodium (Protonix Ec Tab) 40 mg PO 0600 [facility] PRN Reason: Protocol Last Admin: 04/01/17 06:35 Dose: 40 mg Potassium Chloride (Klor-Con 10) 10 meq PO 0800 [facility] PRN Reason: Protocol Last Admin: 03/31/17 08:05 Dose: 10 meq Quetiapine Fumarate (Seroquel) 25 mg PO HS [facility] PRN Reason: Protocol Last Admin: 03/31/17 22:35 Dose: 25 mg - Labs Labs: 03/28/17 06:30 03/28/17 06:30 - Constitutional Appears: Non-toxic - Head Exam Head Exam: NORMAL INSPECTION - ENT Exam ENT Exam: Mucous Membranes Moist - Neck Exam Neck Exam: absent: Meningismus - Respiratory Exam Respiratory Exam: Decreased Breath Sounds - Cardiovascular Exam Cardiovascular Exam: +S1, +S2 - GI/Abdominal Exam GI & Abdominal Exam: Soft. 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 faecalis; should complete 7 -10 days of antibiotics Reviewed doppler U/S of left leg which showed normal MCKENNA and PVR
--- NOTE | 2017-04-01 18:33 | CP.PCM.PN ---
<Wayne Flores - Last Filed: 04/01/17 18:29> Subjective - Date & Time of Evaluation Date of Evaluation: 04/01/17 Time of Evaluation: 18:30 - Subjective Subjective: Podiatry note for Dr. Patterson/Dr. Owusu 81 year old diabetic female seen and evaluated in TCU for slowly resolving infected left heel ulceration. Patient is AAO x 3 and NAD resting comfortably in chair at time of visit. States that her feet are sore after riding the bike in PT today but says that PT is going well. Denies any acute overnight events. Surgical shoes present bilaterally. Denies N/V/F/D/C/SOB. Objective - Vital Signs/Intake and Output Vital Signs (last 24 hours): Temp Pulse Resp BP Pulse Ox 98.5 F 98 H 18 99/55 L 98 03/31/17 17:15 04/01/17 11:35 03/31/17 17:15 04/01/17 11:35 03/31/17 17:15 - Medications Medications: Current Medications Acetaminophen (Tylenol 325mg Tab) 650 mg PO Q4H PRN; Protocol PRN Reason: pain Last Admin: 03/30/17 22:41 Dose: 650 mg Aspirin (Ecotrin) 81 mg PO 0800 [facility] PRN Reason: Protocol Last Admin: 04/01/17 08:11 Dose: 81 mg Atorvastatin Calcium (Lipitor) 20 mg PO DIN [facility] PRN Reason: Protocol Last Admin: 04/01/17 17:22 Dose: 20 mg Bacitracin (Bacitracin) 0 gm TOP BID [facility] PRN Reason: Protocol Last Admin: 04/01/17 17:22 Dose: 1 applic Calcium Carbonate (Caltrate) 600 mg PO 0800 [facility] PRN Reason: Protocol Last Admin: 04/01/17 08:10 Dose: 600 mg Cholecalciferol (Vitamin D) 1,000 intlu PO DAILY [facility] PRN Reason: Protocol Last Admin: 04/01/17 11:35 Dose: 1,000 intlu Collagenase (Santyl) 0 gm TOP DAILY [facility] Last Admin: 04/01/17 10:09 Dose: 1 applic Furosemide (Lasix) 20 mg PO DAILY [facility] PRN Reason: Protocol Last Admin: 04/01/17 11:35 Dose: 20 mg Glipizide (Glucotrol) 2.5 mg PO 0730 [facility] PRN Reason: Protocol Last Admin: 04/01/17 08:10 Dose: 2.5 mg Home Med (Home Med) 1 unit PO DAILY [facility] PRN Reason: Protocol Last Admin: 04/01/17 10:09 Dose: Not Given Aztreonam (Azactam 1 Gm) 100 mls @ 100 mls/hr IVPB 0600,1400,2200 [facility] PRN Reason: Protocol Stop: 04/03/17 07:01 Last Admin: 04/01/17 14:35 Dose: 100 mls/hr Linezolid (Zyvox 600mg/300ml D5w) 600 mg in 300 mls @ 200 mls/hr IVPB 0600, 1800 [facility] PRN Reason: Protocol Stop: 04/03/17 18:01 Last Admin: 04/01/17 17:23 Dose: 200 mls/hr Insulin Human Regular (Humulin R Med) 0 units SC ACHS [facility] PRN Reason: Protocol Last Admin: 04/01/17 17:22 Dose: Not Given Levothyroxine Sodium (Synthroid) 75 mcg PO 0600 [facility] PRN Reason: Protocol Last Admin: 04/01/17 06:35 Dose: 75 mcg Lorazepam (Ativan) 2 mg PO HS PRN; Protocol PRN Reason: Anxiety Losartan Potassium (Cozaar) 25 mg PO DAILY [facility] PRN Reason: Protocol Last Admin: 04/01/17 11:35 Dose: Not Given Metoprolol Succinate (Toprol Xl) 25 mg PO BRK [facility] PRN Reason: Protocol Last Admin: 04/01/17 08:11 Dose: 25 mg Pantoprazole Sodium (Protonix Ec Tab) 40 mg PO 0600 [facility] PRN Reason: Protocol Last Admin: 04/01/17 06:35 Dose: 40 mg Potassium Chloride (Klor-Con 10) 10 meq PO 0800 [facility] PRN Reason: Protocol Last Admin: 04/01/17 08:11 Dose: 10 meq Quetiapine Fumarate (Seroquel) 25 mg PO HS [facility] PRN Reason: Protocol Last Admin: 03/31/17 22:35 Dose: 25 mg - Labs Labs: 03/28/17 06:30 03/28/17 06:30 - Constitutional Appears: Well, Non-toxic, No Acute Distress - Extremities Exam Additional comments: VASC: DP and PT pulses nonpalpable b/l. CFT delayed. Temperature gradient warm to warm. Bilateral lower extremity edema noted. NEURO: Gross sensation absent. DERM: Full thickness ulceration located to plantar aspect of left heel measuring approximately 3 x 3 x 0.3 cm - wound base is primarily granular with moderate fibrotic tissue; minimal serosanguinous drainage noted; no purulence, no malodor, no fluctuance, no undermining, no tunneling. ORTHO: Multiple amputated digits. No pain on palpation bilateral lower extremity. - Neurological Exam Neurological Exam: Alert, Awake, Oriented x3 - Psychiatric Exam Psychiatric exam: Normal Affect, Normal Mood Assessment and Plan - Assessment and Plan (Free Text) Assessment: 81 year old female with diabetic ulceration to left heel- stable and healing Plan: Patient seen and evaluated at bedside Plan discussed with attending Dr. Owusu Left heel wound mechanically debrided with saline soaked gauze Santyl applied to posterior heel wound and wound dressed with gauze, kirlix and tubigrip No surgical intervention planned at this time Podiatry will continue to follow while patient in house <Robby Owusu - Last Filed: 04/02/17 08:32> Objective - Vital Signs/Intake and Output Vital Signs (last 24 hours): Temp Pulse Resp BP Pulse Ox 97.7 F 96 H 18 132/68 97 04/02/17 06:00 04/02/17 08:21 04/02/17 06:00 04/02/17 08:21 04/02/17 06:00 - Medications Medications: Current Medications Acetaminophen (Tylenol 325mg Tab) 650 mg PO Q4H PRN; Protocol PRN Reason: pain Last Admin: 03/30/17 22:41 Dose: 650 mg Aspirin (Ecotrin) 81 mg PO 0800 [facility] PRN Reason: Protocol Last Admin: 04/02/17 08:20 Dose: 81 mg Atorvastatin Calcium (Lipitor) 20 mg PO DIN [facility] PRN Reason: Protocol Last Admin: 04/01/17 17:22 Dose: 20 mg Bacitracin (Bacitracin) 0 gm TOP BID [facility] PRN Reason: Protocol Last Admin: 04/01/17 17:22 Dose: 1 applic Calcium Carbonate (Caltrate) 600 mg PO 0800 [facility] PRN Reason: Protocol Last Admin: 04/02/17 08:20 Dose: 600 mg Cholecalciferol (Vitamin D) 1,000 intlu PO DAILY [facility] PRN Reason: Protocol Last Admin: 04/01/17 11:35 Dose: 1,000 intlu Collagenase (Santyl) 0 gm TOP DAILY [facility] Last Admin: 04/01/17 10:09 Dose: 1 applic Furosemide (Lasix) 20 mg PO DAILY [facility] PRN Reason: Protocol Last Admin: 04/01/17 11:35 Dose: 20 mg Glipizide (Glucotrol) 2.5 mg PO 0730 [facility] PRN Reason: Protocol Last Admin: 04/02/17 08:19 Dose: 2.5 mg Home Med (Home Med) 1 unit PO DAILY [facility] PRN Reason: Protocol Last Admin: 04/01/17 10:09 Dose: Not Given Aztreonam (Azactam 1 Gm) 100 mls @ 100 mls/hr IVPB 0600,1400,2200 [facility] PRN Reason: Protocol Stop: 04/03/17 07:01 Last Admin: 04/02/17 06:17 Dose: 100 mls/hr Linezolid (Zyvox 600mg/300ml D5w) 600 mg in 300 mls @ 200 mls/hr IVPB 0600, 1800 [facility] PRN Reason: Protocol Stop: 04/03/17 18:01 Last Admin: 04/02/17 06:18 Dose: 200 mls/hr Insulin Human Regular (Humulin R Med) 0 units SC ACHS [facility] PRN Reason: Protocol Last Admin: 04/02/17 06:41 Dose: 5 units Levothyroxine Sodium (Synthroid) 75 mcg PO 0600 [facility] PRN Reason: Protocol Last Admin: 04/02/17 06:19 Dose: 75 mcg Lorazepam (Ativan) 2 mg PO HS PRN; Protocol PRN Reason: Anxiety Losartan Potassium (Cozaar) 25 mg PO DAILY [facility] PRN Reason: Protocol Last Admin: 04/01/17 11:35 Dose: Not Given Metoprolol Succinate (Toprol Xl) 25 mg PO BRK [facility] PRN Reason: Protocol Last Admin: 04/02/17 08:21 Dose: 25 mg Pantoprazole Sodium (Protonix Ec Tab) 40 mg PO 0600 [facility] PRN Reason: Protocol Last Admin: 04/02/17 06:19 Dose: 40 mg Potassium Chloride (Klor-Con 10) 10 meq PO 0800 [facility] PRN Reason: Protocol Last Admin: 04/02/17 08:20 Dose: 10 meq Quetiapine Fumarate (Seroquel) 25 mg PO HS [facility] PRN Reason: Protocol Last Admin: 04/01/17 23:11 Dose: 25 mg - Labs Labs: 03/28/17 06:30 03/28/17 06:30 Attending/Attestation - Attestation I have personally seen and examined this patient.: Yes I have fully participated in the care of the patient.: Yes I have reviewed all pertinent clinical information, including history, physical exam and plan: Yes
[2017-04-02] MEDS: Aztreonam 1 Gm in NS 100mL 100 ML IVPB SCH ×3 (06:17→21:35)
[2017-04-02] MEDS: Linezolid 600 mg in D5W 300 ml 600 MG/300 ML BAG IVPB SCH ×2 (06:18→18:16)
[2017-04-02] MEDS: Pantoprazole 40 mg EC Tab PO SCH (06:19)
[2017-04-02] MEDS: Levothyroxine 75 MCG TAB PO SCH (06:19)
[2017-04-02] MEDS: Insulin Human NPH/Reg 70/30 Vial(3 ml) SC SCH ×2 (06:41→18:13)
[2017-04-02] MEDS: Insulin Reg-MEDIUM-Coverage SC SCH ×4 (06:41→22:45)
[2017-04-02] MEDS: Potassium Chloride 10 mEq ER Tab PO SCH (08:20)
[2017-04-02] MEDS: Metoprolol Succinate 25 mg XL Tab PO SCH (08:21)
[2017-04-02] MEDS: Cholecalciferol 1,000 INTLU TAB PO SCH (11:00)
[2017-04-02] MEDS: Bacitracin Ointment 30 GM TUBE TOP SCH ×2 (11:00→18:12)
--- NOTE | 2017-04-02 11:00 | CP.PCM.PN ---
Subjective - Date & Time of Evaluation Date of Evaluation: 04/02/17 Time of Evaluation: 10:56 - Subjective Subjective: Podiatry note for Dr. Patterson/Dr. Owusu 81 year old diabetic female seen and evaluated in TCU for slowly resolving infected left heel ulceration. Patient is AAO x 3 and NAD resting comfortably in chair at time of visit. Patient is seen wearing compression stockings with dressing clean, and intact. Denies any acute overnight events. Surgical shoes present bilaterally. Denies N/V/F/D/C/SOB. Patient reports that she will be going home tomorrow. Objective - Vital Signs/Intake and Output Vital Signs (last 24 hours): Temp Pulse Resp BP Pulse Ox 97.7 F 96 H 18 132/68 97 04/02/17 06:00 04/02/17 08:21 04/02/17 06:00 04/02/17 08:21 04/02/17 06:00 - Medications Medications: Current Medications Acetaminophen (Tylenol 325mg Tab) 650 mg PO Q4H PRN; Protocol PRN Reason: pain Last Admin: 03/30/17 22:41 Dose: 650 mg Aspirin (Ecotrin) 81 mg PO 0800 [facility] PRN Reason: Protocol Last Admin: 04/02/17 08:20 Dose: 81 mg Atorvastatin Calcium (Lipitor) 20 mg PO DIN [facility] PRN Reason: Protocol Last Admin: 04/01/17 17:22 Dose: 20 mg Bacitracin (Bacitracin) 0 gm TOP BID [facility] PRN Reason: Protocol Last Admin: 04/01/17 17:22 Dose: 1 applic Calcium Carbonate (Caltrate) 600 mg PO 0800 [facility] PRN Reason: Protocol Last Admin: 04/02/17 08:20 Dose: 600 mg Cholecalciferol (Vitamin D) 1,000 intlu PO DAILY [facility] PRN Reason: Protocol Last Admin: 04/01/17 11:35 Dose: 1,000 intlu Collagenase (Santyl) 0 gm TOP DAILY [facility] Last Admin: 04/01/17 10:09 Dose: 1 applic Furosemide (Lasix) 20 mg PO DAILY [facility] PRN Reason: Protocol Last Admin: 04/01/17 11:35 Dose: 20 mg Glipizide (Glucotrol) 2.5 mg PO 0730 [facility] PRN Reason: Protocol Last Admin: 04/02/17 08:19 Dose: 2.5 mg Home Med (Home Med) 1 unit PO DAILY [facility] PRN Reason: Protocol Last Admin: 04/01/17 10:09 Dose: Not Given Aztreonam (Azactam 1 Gm) 100 mls @ 100 mls/hr IVPB 0600,1400,2200 [facility] PRN Reason: Protocol Stop: 04/03/17 07:01 Last Admin: 04/02/17 06:17 Dose: 100 mls/hr Linezolid (Zyvox 600mg/300ml D5w) 600 mg in 300 mls @ 200 mls/hr IVPB 0600, 1800 [facility] PRN Reason: Protocol Stop: 04/03/17 18:01 Last Admin: 04/02/17 06:18 Dose: 200 mls/hr Insulin Human Regular (Humulin R Med) 0 units SC ACHS [facility] PRN Reason: Protocol Last Admin: 04/02/17 06:41 Dose: 5 units Levothyroxine Sodium (Synthroid) 75 mcg PO 0600 [facility] PRN Reason: Protocol Last Admin: 04/02/17 06:19 Dose: 75 mcg Lorazepam (Ativan) 2 mg PO HS PRN; Protocol PRN Reason: Anxiety Losartan Potassium (Cozaar) 25 mg PO DAILY [facility] PRN Reason: Protocol Last Admin: 04/01/17 11:35 Dose: Not Given Metoprolol Succinate (Toprol Xl) 25 mg PO BRK [facility] PRN Reason: Protocol Last Admin: 04/02/17 08:21 Dose: 25 mg Pantoprazole Sodium (Protonix Ec Tab) 40 mg PO 0600 [facility] PRN Reason: Protocol Last Admin: 04/02/17 06:19 Dose: 40 mg Potassium Chloride (Klor-Con 10) 10 meq PO 0800 [facility] PRN Reason: Protocol Last Admin: 04/02/17 08:20 Dose: 10 meq Quetiapine Fumarate (Seroquel) 25 mg PO HS [facility] PRN Reason: Protocol Last Admin: 04/01/17 23:11 Dose: 25 mg - Labs Labs: 03/28/17 06:30 03/28/17 06:30 - Constitutional Appears: Well, No Acute Distress - Extremities Exam Extremities Exam: absent: Calf Tenderness Additional comments: VASC: DP and PT pulses nonpalpable b/l. CFT delayed. Temperature gradient warm to warm. Bilateral lower extremity edema noted. NEURO: Gross sensation absent. DERM: Full thickness ulceration located to plantar aspect of left heel measuring approximately 3 x 3 x 0.3 cm - wound base is primarily granular with moderate fibrotic tissue; minimal serosanguinous drainage noted; no purulence, no malodor, no fluctuance, no undermining, no tunneling. ORTHO: Multiple amputated digits. No pain on palpation bilateral lower extremity. - Neurological Exam Neurological Exam: Alert, Awake, Oriented x3 - Psychiatric Exam Psychiatric exam: Normal Affect, Normal Mood Assessment and Plan - Assessment and Plan (Free Text) Assessment: 81 year old female with diabetic ulceration to left heel- stable and healing Plan: Patient seen and evaluated at bedside Plan discussed with attending Dr. Owusu Left heel cleansed with saline Santyl applied to posterior heel wound and wound dressed with gauze, kirlix and tubigrip No surgical intervention planned at this time Podiatry will continue to follow while patient in house Patient is stable per podiatry standpoint
[2017-04-02] MEDS: Collagenase 250 Units/gm Ointment(30 gm) TOP SCH (11:01)
[2017-04-02] MEDS: [UNRECOGNIZED DRUG - MIXTURE] PO SCH (11:01)
--- NOTE | 2017-04-02 14:26 | PN ---
DATE: 04/02/2017 SUBJECTIVE: Patient is in bed, in no acute distress, nontoxic. PHYSICAL EXAMINATION: VITAL SIGNS: Temperature is 98, blood pressure is 120/70, respiratory rate of 16. HEENT: Unremarkable. NECK: Supple. LUNGS: Have decreased breath sounds. HEART: Normal S1, S2. ABDOMEN: Soft. LABORATORY EXAMINATION: Reveals the patient's white count is 5.3, hemoglobin of 10 and platelets of 170. Creatinine is 1.1. ASSESSMENT AND PLAN: This is a 81-year-old with a left heel infected ulcer and cellulitis and osteomyelitis on MRI with a history of second toe and metatarsal head osteomyelitis status post surgery and chronic renal failure and obesity with a BMI of 38, osteoarthritis, hypertension, diabetes, hypothyroidism on Zyvox and the Azactam day #10 with wound culture showing only Enterococcus faecalis with complete 7-10 days of antibiotics. The aztreonam is still active. We will follow with you. Clay Oneill MD
[2017-04-02 17:09] VITALS: RESP 16; TEMP 98.6; O2SAT 98
[2017-04-03] MEDS: Linezolid 600 mg in D5W 300 ml 600 MG/300 ML BAG IVPB SCH (06:07)
[2017-04-03] MEDS: Aztreonam 1 Gm in NS 100mL 100 ML IVPB SCH (06:07)
[2017-04-03] MEDS: Pantoprazole 40 mg EC Tab PO SCH (06:07)
[2017-04-03] MEDS: Levothyroxine 75 MCG TAB PO SCH (06:07)
[2017-04-03] MEDS: Insulin Reg-MEDIUM-Coverage SC SCH ×2 (07:01→11:55)
[2017-04-03] MEDS: Insulin Human NPH/Reg 70/30 Vial(3 ml) SC SCH (07:02)
[2017-04-03] MEDS: Potassium Chloride 10 mEq ER Tab PO SCH (08:36)
[2017-04-03] MEDS: Metoprolol Succinate 25 mg XL Tab PO SCH (08:37)
[2017-04-03] MEDS: Cholecalciferol 1,000 INTLU TAB PO SCH (09:42)
[2017-04-03 09:46] VITALS: BP 117/56; PULSE 70
[2017-04-03] MEDS: Bacitracin Ointment 30 GM TUBE TOP SCH (10:00)
--- NOTE | 2017-04-03 11:31 | PN ---
DATE: 04/03/2017 SUBJECTIVE: The patient is in bed, in no acute distress and she is doing well. She was seen earlier in 316. PHYSICAL EXAMINATION: VITAL SIGNS: Temperature was 98, blood pressure was 116/50, respiratory rate of 16. HEENT: Unremarkable. NECK: Supple. LUNGS: Have decreased breath sounds. HEART: Normal S1, S2. ABDOMEN: Soft. LABORATORY EXAMINATION: Reveals a white count of 5.3, hemoglobin of 10. Chemistries reveals the patient has a BUN of 27 and creatinine of 1.1. ASSESSMENT: A 81-year-old with a left heel infected ulcer and cellulitis and osteomyelitis on MRI and a history of second toe and metatarsal head osteomyelitis, status post surgery, chronic renal failure and obesity with a body mass index of 38, osteoarthritis, hypertension, diabetes, hypothyroidism. Has had 10 days of Zyvox and Azactam. The patient for possible discharge today. No further antibiotics. We will discontinue the antibiotics and no further antibiotics as outpatient. Clay Oneill MD
[2017-04-03] MEDS: [UNRECOGNIZED DRUG - MIXTURE] PO SCH (12:48)
[2017-04-03] MEDS: Collagenase 250 Units/gm Ointment(30 gm) TOP SCH (12:53)
--- NOTE | 2017-04-03 16:18 | CP.PCM.PN ---
Subjective - Date & Time of Evaluation Date of Evaluation: 04/03/17 Time of Evaluation: 11:30 - Subjective Subjective: Podiatry note for Dr. Patterson/Dr. Owusu 81 year old diabetic female seen and evaluated in TCU for slowly resolving infected left heel ulceration. Patient is AAO x 3 and NAD resting comfortably in chair at time of visit. Patient is seen wearing compression stockings with dressing clean, and intact. Denies any acute overnight events. Surgical shoes present bilaterally. Denies N/V/F/D/C/SOB. Patient will be going home today. Objective - Vital Signs/Intake and Output Vital Signs (last 24 hours): Temp Pulse Resp BP Pulse Ox 98.6 F 70 16 117/56 L 98 04/02/17 16:00 04/03/17 09:43 04/02/17 16:00 04/03/17 09:43 04/02/17 16:00 - Labs Labs: 03/28/17 06:30 03/28/17 06:30 - Constitutional Appears: Well, Non-toxic, No Acute Distress - Extremities Exam Additional comments: VASC: DP and PT pulses nonpalpable b/l. CFT delayed. Temperature gradient warm to warm. Bilateral lower extremity edema noted. NEURO: Gross sensation absent. DERM: Full thickness ulceration located to plantar aspect of left heel measuring approximately 3 x 3 x 0.3 cm - wound base is mix granular with moderate fibrotic tissue; minimal serosanguinous drainage noted; no purulence, no malodor, no fluctuance, no undermining, no tunneling. ORTHO: Multiple amputated digits. No pain on palpation bilateral lower extremity - Neurological Exam Neurological Exam: Alert, Awake, Oriented x3 - Psychiatric Exam Psychiatric exam: Normal Affect, Normal Mood Assessment and Plan - Assessment and Plan (Free Text) Assessment: 81 year old female with diabetic ulceration to left heel- stable and healing Plan: Patient seen and evaluated at bedside Plan discussed with attending Dr. Owusu Left heel cleansed with saline Santyl applied to posterior heel wound and wound dressed with gauze, kirlix and tubigrip No surgical intervention planned at this time Patient is stable per podiatry standpoint to be discharged Nursing visitation in place: will change dressing MWF Patient will f/u with Dr. Patterson in wound care Tuesday
--- NOTE | 2017-04-03 19:03 | DS ---
DISCHARGE DIAGNOSES: 1. Acute kidney injury, resolved. 2. Left foot diabetic ulcer. 3. Hypertension. 4. Diabetes mellitus type 2. 5. Morbid obesity. 6. Peripheral arterial disease. 7. Chronic anemia. HOSPITAL COURSE: The patient was admitted with a heal ulcer, treated with antibiotics. Acute renal failure resolved. Diabetes mellitus type 2 was controlled with current medications. Hypothyroidism treatment continued during hospitalization, ID program evaluation consultant followed during hospitalization. She is being discharged in stable condition. She completed the course of antibiotics for the left heel ulcer and cellulitis. PHYSICAL EXAMINATION ON DISCHARGE: VITAL SIGNS: Temperature 97.8, heart rate is 80 per minute, blood pressure 130/60, respiratory rate 18 per minute. HEENT: Pallor positive. HEENT Normal. NECK: No lymphadenopathy. CHEST: Fair air entry present and equal bilateral. No added sounds. CARDIOVASCULAR: S1 and S2 normal. No murmur. No gallop. ABDOMEN: Soft and nontender. No hepatosplenomegaly. EXTREMITIES: No edema. No cyanosis. FIELD AUDITOR: Alert and oriented x3. No focal sensory, motor deficit. SKIN: No petechiae, no rash. CONDITION ON DISCHARGE: Stable. DISPOSITION: Discharge home. DISCHARGE MEDICATIONS: Seroquel 25 mg p.o. at bedtime, potassium 20 mEq daily, Protonix 40 mg daily, Synthroid 75 mcg daily, losartan 25 mg daily, metoprolol XL 25 mg daily, insulin 20 units 70/30 subcu p.m. and 45 units in the morning, Lasix 40 mg daily, and aspirin 81 mg daily. Follow up with in one week. DIET: Hearty-healthy diet. Activity as tolerated. All prescription given to the patient. Time spent in preparing discharge and coordinating care, 60 minutes Mariya Cruz MD
--- NOTE | 2017-04-03 19:19 | PN ---
DATE: 04/02/2017 FOLLOWUP NOTE SUBJECTIVE: She is comfortable in bed, in no acute distress, participating in physical therapy. Left heel ulcer, improved. Sugar is controlled on current medications. Hypothyroidism controlled with current medications of Synthroid 75 mcg daily. REVIEW OF SYSTEMS: As per HPI. Rest of 12-point review of system reviewed negative. PHYSICAL EXAMINATION GENERAL: Comfortable in bed, in no acute distress. VITAL SIGNS: Temperature 98.7, heart rate 80 per minutes, blood pressure 130/60 and respiratory rate 18 per minute. HEENT: Normal. Oral mucosa pale. NECK: Supple. No lymphadenopathy. CHEST: Fair air entry present equal and bilateral. No added sounds. CARDIOVASCULAR: S1 and S2 normal. No murmur. No gallop. ABDOMEN: Soft and nontender. No hepatosplenomegaly. EXTREMITIES: No edema. CENTRAL NERVOUS SYSTEM: Alert and oriented x3. No focal, sensory or motor deficits. LABORATORY DATA: Reviewed. White blood cells 5.3 and hemoglobin 10.5. Creatinine 1.1. MEDICATIONS: Tylenol 650 q. 6 hours p.r.n., aspirin 81 mg daily, Lipitor 20 mg daily, Azactam b.i.d., Bacitracin local application, vitamin D, Collagenase, glipizide 2.5 mg daily, Synthroid 75 mcg daily and linezolid. ASSESSMENT: 1. Acute kidney injury, resolved. 2. Left foot diabetic ulcer. 3. Hypertension. 4. Diabetes mellitus type 2. 5. Chronic anemia. 6. Peripheral arterial disease. PLAN: We will continue current medications. She is on IV antibiotics as per ID. Tomorrow is the last day of antibiotics. We will do the discharge planning. We will continue Tylenol 650 q. 6 hours p.r.n., Lipitor 20 mg daily. We will continue Synthroid. Continue current dose of insulin. Participating in physical therapy. Condition stable. Discharge plan for tomorrow. Mariya Cruz MD
== END 2017-04-03 15:21 | disposition home or self-care (01) | DRG 638 ==
LOC: TRCU 13:38
PROVIDERS: ADMIT Internal Medicine Nephrology; ATTEND Internal Medicine Nephrology
PROC: F07Z9FZ Gait Training/Functional Ambulation Treatment using Assistive, Adaptive, Supportive or Protective Equipment (ICD-10-PCS; principal; 2017-03-28)
PROC: F07Z8ZZ Transfer Training Treatment (ICD-10-PCS; 2017-03-28)
PROC: F07L6ZZ Therapeutic Exercise Treatment of Musculoskeletal System - Lower Back / Lower Extremity (ICD-10-PCS; 2017-03-28)
PROC: F08Z2FZ Grooming/Personal Hygiene Treatment using Assistive, Adaptive, Supportive or Protective Equipment (ICD-10-PCS; 2017-03-30)
PROC: F08Z1FZ Dressing Techniques Treatment using Assistive, Adaptive, Supportive or Protective Equipment (ICD-10-PCS; 2017-03-30)
PROC: 0HDNXZZ Extraction of Left Foot Skin, External Approach (ICD-10-PCS; 2017-03-31)
DX: E11.621 Type 2 diabetes mellitus with foot ulcer (principal); L97.429 Non-pressure chronic ulcer of left heel and midfoot with unspecified severity; N17.9 Acute kidney failure, unspecified; E11.51 Type 2 diabetes mellitus with diabetic peripheral angiopathy without gangrene; E11.22 Type 2 diabetes mellitus with diabetic chronic kidney disease; L03.116 Cellulitis of left lower limb; I12.9 Hypertensive chronic kidney disease with stage 1 through stage 4 chronic kidney disease, or unspecified chronic kidney disease; N18.3 Chronic kidney disease, stage 3 (moderate); D64.9 Anemia, unspecified; E03.9 Hypothyroidism, unspecified; E66.01 Morbid (severe) obesity due to excess calories; M19.90 Unspecified osteoarthritis, unspecified site; G47.9 Sleep disorder, unspecified; E78.5 Hyperlipidemia, unspecified; B95.2 Enterococcus as the cause of diseases classified elsewhere; Z68.38 Body mass index [BMI] 38.0-38.9, adult; Z79.4 Long term (current) use of insulin; Z89.412 Acquired absence of left great toe; Z89.411 Acquired absence of right great toe; Z88.0 Allergy status to penicillin

== ENCOUNTER 2017-08-01 10:11 | Inpatient (IN) | payer MEDICARE, OTHER ==
[2017-08-01 11:08] LABS: BASO # 0.04 K/mm3 (0.0-2.0); BASO % 0.5 % (0.0-3.0); EOS # 0.3 (0.0-0.7); EOS % 3.5 % (1.5-5.0); GRAN # 4.55 (1.4-6.5); GRAN % 53.1 % (50.0-68.0); HEMOGLOBIN 12.1 g/dL (12.0-16.0); LYMPH # 2.8 (1.2-3.4); LYMPH % 32.4 % (22.0-35.0); MEAN CELL VOLUME 93.9 fl (80.0-105.0); MEAN CORPUSCULAR HEMOGLOBIN 30.9 pg (25.0-35.0); MONO # 0.9 (0.1-0.6); MONO % 10.5 % (1.0-6.0); RBC 3.91 10^6/uL (3.5-6.1); RED CELL DISTRIBUTION WIDTH 13.4 % (11.5-14.5); WHITE BLOOD COUNT 8.6 10^3/ul (4.5-11.0)
[2017-08-01 11:11] LABS: VENOUS BLOOD GAS BASE EXCESS 5.1 mmol/L (0.0-2.0); VENOUS BLOOD GAS PO2 47 mm/Hg (30-55); VENOUS BLOOD PH 7.33 (7.32-7.43)
[2017-08-01 11:13] LABS: ALB/GLOB RATIO 1.1 (1.1-1.8); ALBUMIN 4.2 g/dL (3.0-4.8); CALCIUM 10.3 mg/dL (8.4-10.5)
[2017-08-01 11:16] LABS: INR 1.08 (0.93-1.08); PARTIAL THROMBOPLASTIN TIME 31.8 Seconds (25.1-36.5); PROTHROMBIN TIME 12.4 SECONDS (9.4-12.5)
[2017-08-01] MEDS ORDERED: Vancomycin 1gm in NS 250ml 1 GM/250 ML BAG IVPB STA ×4 (11:28→15:30)
[2017-08-01] MEDS ORDERED: Aztreonam 1 Gm in NS 100mL 100 ML IVPB STA (11:28)
--- NOTE | 2017-08-01 11:50 | ED PDOC ---
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 Dr. Patterson requesting admission concerning failed outpatient antibiotics. Patient reports increased redness in right ankle and lower leg over the past few days. Patient was on unknown antibiotics at home. Patient denies any fever, chills, nausea, vomiting, abdominal pain, chest pain, shortness of breath or any other complaints. Patient reports her sugar usually fluctuates and checks fs 3 times a day. Time/Duration: Other (few days) Symptom Course: Worsening Context: Home Past Medical History - Provider Review Nursing Documentation Reviewed: Yes - Infectious Disease Hx of Infectious Diseases: None - Tetanus Immunization Tetanus Immunization: Unknown - Cardiac Hx Cardiac Disorders: Yes Hx Hypertension: Yes - Pulmonary Hx Respiratory Disorders: No - Neurological Hx Neurological Disorder: No - HEENT Hx HEENT Disorder: No - Renal Hx Renal Disorder: No - Endocrine/Metabolic Hx Diabetes Mellitus Type 2: Yes Hx Hypothyroidism: Yes - Hematological/Oncological Hx Blood Disorders: No - Integumentary Hx Dermatological Disorder: No - Musculoskeletal/Rheumatological Hx Falls: Yes - Gastrointestinal Hx Gastrointestinal Disorders: No - Genitourinary/Gynecological Hx Genitourinary Disorders: Yes (urgency frequency) Hx Reproductive Disorders: No - Psychiatric Hx Psychophysiologic Disorder: Yes Hx Depression: Yes Hx Substance Use: No - Surgical History Hx Amputation: Yes (LEFT GREAT TOE, RIGHT 2ND TOE) Hx Musculoskeletal Surgery: Yes - Anesthesia Hx Anesthesia: Yes Hx Anesthesia Reactions: (not known) Hx Malignant Hyperthermia: No - Suicidal Assessment Feels Threatened In Home Enviroment: No Family/Social History - Physician Review Nursing Documentation Reviewed: Yes Family/Social History: No Known Family HX Smoking Status: Never Smoked Hx Alcohol Use: No Hx Substance Use: No Hx Substance Use Treatment: No Allergies/Home Meds Allergies/Adverse Reactions: Allergies Penicillins Allergy (Verified 08/01/17 10:32) ITCHING Home Medications: Home Meds Medication Instructions Recorded Confirmed Acetaminophen [Tylenol 325mg tab] 650 mg PO Q4 PRN 12/27/15 08/01/17 Amino Acids/Protein Hydrolys 30 ml PO DAILY 12/27/15 08/01/17 [Pro-Stat Profile Liquid] Insulin Human NPH/Reg [HumuLIN 45 units SC QAM 12/27/15 08/01/17 70/30 (NPH/Reg)] Insulin NPH Hum/Reg Insulin Hm 20 units SC QPM 02/24/16 08/01/17 [Humulin 70-30 Vial] Metoprolol Succinate [Toprol XL] 25 mg PO DAILY 02/24/16 08/01/17 Multivit-Min/FA/Lycopen/Lutein 1 each PO DAILY 02/24/16 08/01/17 [Centrum Silver Tablet] Losartan [Cozaar] 25 mg PO DAILY 06/07/16 08/01/17 Aspirin [[place] Aspirin] 81 mg PO DAILY 03/23/17 08/01/17 QUEtiapine [Seroquel] 25 mg PO HS 03/23/17 08/01/17 Review of Systems - Physician Review All systems were reviewed & negative as marked: Yes - Review of Systems Constitutional: absent: Fevers, Night Sweats Respiratory: absent: SOB Cardiovascular: absent: Chest Pain Gastrointestinal: absent: Abdominal Pain, Nausea, Vomiting Skin: Ulcer (infected right heel ulcer), Other (increased redness to right ankle and lower leg) Physical Exam Vital Signs Reviewed: Yes Vital Signs Temp Pulse Resp BP Pulse Ox 08/01/17 10:32 98.3 F 83 18 128/72 100 Temperature: Afebrile Blood Pressure: Normal Pulse: Regular Respiratory Rate: Normal Appearance: Positive for: Well-Appearing Pain Distress: None Mental Status: Positive for: Alert and Oriented X 3 Finger Stick Blood Glucose: 108 - Systems Exam Head: Present: Atraumatic, Normocephalic Conjunctiva: Present: Normal Mouth: Present: Moist Mucous Membranes Neck: Present: Normal Range of Motion Respiratory/Chest: Present: Clear to Auscultation, Good Air Exchange. No: Respiratory Distress, Accessory Muscle Use Cardiovascular: Present: Regular Rate and Rhythm, Normal S1, S2. No: Murmurs Abdomen: No: Tenderness Upper Extremity: Present: Normal Inspection Lower Extremity: Present: NORMAL PULSES (DP pulses intact), Normal ROM, Neurovascularly Intact, Capillary Refill < 2 s, Other (Ulcer noted to right posterior heel with surrounding erythema extending from plantar aspect of heel, ankle and distal 3rd of lower leg). No: Edema, CALF TENDERNESS, Temperature Abnormalties Neurological: Present: GCS=15, Speech Normal Skin: Present: Warm, Dry, Normal Color Psychiatric: Present: Alert, Oriented x 3 Medical Decision Making ED Course and Treatment: 08/01/17 11:41 Impression: A 81 year old female sent in by Dr. Patterson for infected right heel ulcer Plan: -- Labs -- Blood culture -- Azactam and Vancomycin Progress Notes: 08/01/17 12:45 all results discussed with patient in depth; case discussed with the patients family member; pt does not want to be admitted to dr. toledo due to insurance issues. pt does not want to be admitted to dr. mireles; pt and family would prefer to be admitted to hospitalist service. case discussed with Dr. clark in depth; accepts admission impression; cellulitis, infected wound, foot admit to med/surg - Lab Interpretations Lab Results: 08/01/17 10:56 08/01/17 10:56 Lab Results 08/01/17 11:00: pO2 47, VBG pH 7.33, VBG pCO2 62.0 H, VBG HCO3 32.7 H, VBG Total CO2 34.6 H, VBG O2 Sat (Calc) 86.7 H, VBG Base Excess 5.1 H, VBG Potassium 4.1, Glucose 114 H, Lactate 2.1, FiO2 21.0, Sodium 139.0, Chloride 102.0, Venous Blood Potassium 4.1 08/01/17 10:56: PT 12.4, INR 1.08, APTT 31.8 08/01/17 10:56: Sodium 146, Potassium 4.3, Chloride 101, Carbon Dioxide 32, Anion Gap 17, BUN 32 H, Creatinine 1.1, Est GFR ( Amer) 58, Est GFR (Non- Af Amer) 48, Random Glucose 115 H, Calcium 10.3, Total Bilirubin 0.5, AST 46 H D , ALT 29, Alkaline Phosphatase 217 H, Total Protein 8.0, Albumin 4.2, Globulin 3.9, Albumin/Globulin Ratio 1.1 08/01/17 10:56: WBC 8.6 D, RBC 3.91, Hgb 12.1, Hct 36.7, MCV 93.9, MCH 30.9, MCHC 33.0, RDW 13.4, Plt Count 232, MPV 12.0 H, Gran % 53.1, Lymph % (Auto) 32.4 , [place] % (Auto) 10.5 H, Eos % (Auto) 3.5, Baso % (Auto) 0.5, Gran # 4.55, Lymph # (Auto) 2.8, [place] # (Auto) 0.9 H, Eos # (Auto) 0.3, Baso # (Auto) 0.04 08/01/17 10:48: POC Glucose (mg/dL) 108 I have reviewed the lab results: Yes - Medication Orders Current Medication Orders: Vancomycin HCl (Vancomycin 1gm) 1 gm in 250 mls @ 167 mls/hr IVPB STAT STA PRN Reason: Protocol Stop: 08/01/17 12:57 Discontinued Medications Aztreonam (Azactam 1 Gm) 100 mls @ 100 mls/hr IVPB STAT STA PRN Reason: Protocol Stop: 08/01/17 12:27 Last Admin: 08/01/17 12:03 Dose: 100 mls/hr eMAR Start Stop Document 08/01/17 12:03 [facility] (Rec: 08/01/17 12:03 [facility] [id number]) Intravenous Solution Start Date 08/01/17 Start Time 12:03 End Date 08/01/17 End time 12:05 Total Infusion Time 2 - Scribe Statement The provider has reviewed the documentation as recorded by the Gabrielle Andrews Provider Scribe Attestation: All medical record entries made by the Scribe were at my direction and personally dictated by me. I have reviewed the chart and agree that the record accurately reflects my personal performance of the history, physical exam, medical decision making, and the department course for this patient. I have also personally directed, reviewed, and agree with the discharge instructions and disposition. Disposition/Present on Arrival - Present on Arrival Any Indicators Present on Arrival: No History of DVT/PE: No History of Uncontrolled Diabetes: No Urinary Catheter: No History of Decub. Ulcer: No History Surgical Site Infection Following: None - Disposition Have Diagnosis and Disposition been Completed?: Yes Diagnosis: Cellulitis, Infected wound Disposition: HOSPITALIZED Disposition Time: 12:02 Patient Plan: Admission Patient Problems: Current Active Problems Problem Status Onset Cellulitis Acute Infected wound Acute Condition: FAIR
--- NOTE | 2017-08-01 13:25 | CP.PCM.HP ---
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 She is a patient of Dr Patterson patient for non-healing ulcer at the heels of L foot. Wound culture was drawn and showed MRSA sensitive to clindamycin, which patient has finished a 1- week course of that. VNA at home changes dressings. Pt has new diabetic shoes. On 07/18, There is a new open wound to posterior R heel. Dr Patterson endorsed that it could be from the new diabetic shoes. Today's pt went to podiatry and found that her L heel became black/purplish with old wound reopened on L foot. Patient reports increased redness in right ankle and lower leg over the past few days. (+) ambulating difficulty but no pain, (+) urinary frequency ROS - Denies fever, chills, CP, SOB, nausea, vomiting, abdominal pain, dysuria . Patient checl sugar 3 times a day. PMHx: CAD/HTN, no stents DM2 x >30 years. A1C 7.3 (Mar 2017) Hypothyroidism Hx falls Insomnia PSH: amputation of L great toe and R second toe Gamma marisol (ORIF) R hip Thyroid removal for nodule Carpal tunnel surgery R wrist FH: DM, HTN SH: Ambulating with walker. Live with Daughter Kika [phone], who sought her med VNA MWF Smoke never Etoh, holidays only drug - denies All: Penicillins Med: Toprol XL 25, Losartan 25, K-Dur 20 ER Protonix, MV, synthroid 75 mcg, Glargine 46 u qAM Glipizide if BS > 100. 1 table AM, 2 table dinner Quetiapine 25 HS, ativan PRN, PMD: [place] pharmacy: [facility] on [address] Present on Admission - Present on Admission Any Indicators Present on Admission: No Past Patient History - Infectious Disease Hx of Infectious Diseases: None - Tetanus Immunizations Tetanus Immunization: Unknown - Past Medical History & Family History Past Medical History?: Yes - Past Social History Smoking Status: Never Smoked - CARDIAC Hx Cardiac Disorders: Yes Hx Hypertension: Yes - PULMONARY Hx Respiratory Disorders: No - NEUROLOGICAL Hx Neurological Disorder: No - HEENT Hx HEENT Problems: No - RENAL Hx Chronic Kidney Disease: No - ENDOCRINE/METABOLIC Hx Diabetes Mellitus Type 2: Yes Hx Hypothyroidism: Yes - HEMATOLOGICAL/ONCOLOGICAL Hx Blood Disorders: No - INTEGUMENTARY Hx Dermatological Problems: No - MUSCULOSKELETAL/RHEUMATOLOGICAL Hx Falls: Yes - GASTROINTESTINAL Hx Gastrointestinal Disorders: No - GENITOURINARY/GYNECOLOGICAL Hx Genitourinary Disorders: Yes (urgency frequency) Hx Reproductive Disorders: No - PSYCHIATRIC Hx Psychophysiologic Disorder: Yes Hx Depression: Yes Hx Substance Use: No - SURGICAL HISTORY Hx Amputation: Yes (LEFT GREAT TOE, RIGHT 2ND TOE) Hx Musculoskeletal Surgery: Yes - ANESTHESIA Hx Anesthesia: Yes Hx Anesthesia Reactions: (not known) Hx Malignant Hyperthermia: No Meds Allergies/Adverse Reactions: Allergies Allergy/AdvReac Type Severity Reaction Status Date / Time Penicillins Allergy ITCHING Verified 08/01/17 10:32 Physical Exam - Constitutional Appears: No Acute Distress - Head Exam Head Exam: ATRAUMATIC, NORMAL INSPECTION, NORMOCEPHALIC - Eye Exam Eye Exam: EOMI, Normal appearance, PERRL. absent: Scleral icterus Pupil Exam: NORMAL ACCOMODATION - ENT Exam ENT Exam: Mucous Membranes Moist - Neck Exam Neck exam: Negative for: Thyromegaly Additional comments: supple - Respiratory Exam Respiratory Exam: Clear to Auscultation Bilateral, NORMAL BREATHING PATTERN. absent: Rales, Rhonchi, Wheezes - Cardiovascular Exam Cardiovascular Exam: REGULAR RHYTHM, +S1, +S2. absent: Systolic Murmur - GI/Abdominal Exam GI & Abdominal Exam: Normal Bowel Sounds, Soft. absent: Distended, Guarding - Extremities Exam Extremities exam: Positive for: normal capillary refill, pedal edema (pitting), pedal pulses present. Negative for: calf tenderness - Neurological Exam Neurological exam: Alert, Oriented x3 Additional comments: Motor 5/5 UE, 4/5 LE Sensory diminished distal LE b/l. 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 Diabetic ulcers with MRSA cellulitis R ankle R heel necrosis - No leukocytosis. Lactate 2.1. s/p 1 dose of aztreonam and vanco in ED - Repeat wound culture today (08/01) - x-ray ankles to r/o osteomyelitis, ESR, CRP - ID consult - Mutipodus boot on L - Contact isolation - Turn Q2 Hx CAD - ASA, lipitor, toprol 25 Diabetes - pending A1C - Home glargin 45 AM. I'll reduce it to 30u AM - [id number] - Glipizide 2.5 TID Insomia - quetiapine 25 HS Hypothyroidism - synthroid 75 mcg. Prophylaxis - Protonix, heparin Sq q8 s/r/d/w Dr Mancuso <Ricardo Mancuso - Last Filed: 08/01/17 17:06> Results - Vital Signs Recent Vital Signs: Last Vital Signs Temp 97.6 F 08/01/17 14:00 Pulse 78 08/01/17 14:00 Resp 20 08/01/17 14:00 BP 111/47 L 08/01/17 14:00 Pulse Ox 98 08/01/17 14:00 - Labs Result Diagrams: 08/01/17 10:56 08/01/17 10:56 Labs: Laboratory Results - last 24 hr 08/01/17 08/01/17 15:35 16:41 pO2 30 VBG pH 7.39 VBG pCO2 56.0 VBG HCO3 33.9 H VBG Total CO2 35.6 H VBG O2 Sat (Calc) 64.5 VBG Base Excess 7.1 H VBG Potassium 4.8 Sodium 140.0 Chloride 104.0 Glucose 168 H Lactate 2.0 FiO2 21.0 POC Glucose (mg/dL) 155 H Venous Blood Potassium 4.8 Attending/Attestation - Attestation I have personally seen and examined this patient.: Yes I have fully participated in the care of the patient.: Yes I have reviewed all pertinent clinical information: Yes Notes (Text): 08/01/17 17:02 attending note; Patient seen with resident. Patient is a 81-year-old female with asked medical history of hypertension, Diabetes, insomnia, neuropathy, amputation of L great toe and R second toe was sent into ED from wound care center by equipment hire manager for an infected right heel ulcer. patient had recent culture positive for MRSA. Treated with clindamycin. Did not respond to treatment well. Currently sent in for IV anti-biotics. Started on IV vancomycin and Azactam. Patient is allergic to penicillin. diabetes; continue Levemir With sliding scale. Local wound care by podiatry. ID evaluation requested. upon discharge patient will follow up with PMD .
[2017-08-01 13:33] LABS: HDL CHOLESTEROL 40 mg/dL (29-60)
[2017-08-01 13:43] LABS: LDL CHOLESTEROL 47 mg/dL (0-129)
[2017-08-01 13:59] LABS: FREE T4 1.32 ng/dL (0.78-2.19)
[2017-08-01] MEDS ORDERED: Insulin Detemir 100 units/ml Vial (Levemir) SC SCH ×2 (15:15→15:22)
[2017-08-01 15:45] LABS: VENOUS BLOOD GAS BASE EXCESS 7.1 mmol/L (0.0-2.0); VENOUS BLOOD GAS PO2 30 mm/Hg (30-55); VENOUS BLOOD PH 7.39 (7.32-7.43)
[2017-08-01] MEDS ORDERED: Vancomycin 1.5 GM in Sodium Chloride 0.9% 500 ML IVPB ONE (16:15)
--- NOTE | 2017-08-01 16:22 | RAD ---
PROCEDURE: Bilateral Ankle Radiographs. HISTORY: r/o osteomyelitis COMPARISON: None FINDINGS: BONES: Right Ankle: Degenerative changes in the midfoot with flattening of the plantar arch. No evidence of osteomyelitis Left Ankle: Degenerative changes in the midfoot with flattening of the plantar arch. No evidence of osteomyelitis JOINTS: Right Ankle: Normal. No osteoarthritis. Ankle mortise maintained. Talar dome intact. Left Ankle: Normal. No osteoarthritis. Ankle mortise maintained. Talar dome intact. SOFT TISSUES: Right Ankle: Normal. Left Ankle: Normal. OTHER FINDINGS: None. IMPRESSION: Degenerative changes in the midfoot with flattening of the plantar arch. No evidence of osteomyelitis
[2017-08-01] MEDS: Insulin Reg-MEDIUM-Coverage SC SCH ×2 (17:00→22:29)
[2017-08-01] MEDS: Naproxen 275 mg Tab PO SCH (21:45)
[2017-08-02] MEDS ORDERED: Vancomycin 500 mg Inj IVPB ONE (01:00)
[2017-08-02] MEDS ORDERED: Aztreonam 1 Gm in NS 100mL 100 ML IVPB ONE (01:00)
[2017-08-02] MEDS ORDERED: Vancomycin 1.5 GM in Sodium Chloride 0.9% 500 ML IVPB ONE (01:00)
[2017-08-02 01:11] VITALS: BMI 35.8
[2017-08-02] MEDS ORDERED: Pneumococcal 23-Valent Vaccine IM ONE (01:11)
[2017-08-02] MEDS: Aztreonam 1 Gm in NS 100mL 100 ML IVPB SCH ×3 (05:43→21:48)
[2017-08-02] MEDS: Pantoprazole 40 mg EC Tab PO SCH (05:44)
[2017-08-02 06:29] LABS: BASO # 0.04 K/mm3 (0.0-2.0); BASO % 0.6 % (0.0-3.0); EOS # 0.3 (0.0-0.7); EOS % 4.6 % (1.5-5.0); GRAN # 3.81 (1.4-6.5); GRAN % 52.5 % (50.0-68.0); HEMOGLOBIN 10.2 g/dL (12.0-16.0); LYMPH # 2.3 (1.2-3.4); MEAN CORPUSCULAR HEMOGLOBIN 30.5 pg (25.0-35.0); MEAN CORPUSCULAR HGB CONC 32.5 g/dl (31.0-37.0); MEAN PLATELET VOLUME 11.9 fl (7.0-11.0); MONO # 0.8 (0.1-0.6); MONO % 11.3 % (1.0-6.0); RBC 3.34 10^6/uL (3.5-6.1); RED CELL DISTRIBUTION WIDTH 13.6 % (11.5-14.5); WHITE BLOOD COUNT 7.3 10^3/ul (4.5-11.0)
[2017-08-02 06:41] LABS: ALBUMIN 3.1 g/dL (3.0-4.8); CALCIUM 8.8 mg/dL (8.4-10.5)
[2017-08-02] MEDS: Insulin Reg-MEDIUM-Coverage SC SCH (07:43)
[2017-08-02] MEDS ORDERED: Metoprolol Succinate 25 mg XL Tab PO SCH ×2 (08:00→12:02)
[2017-08-02 08:22] VITALS: RESP 20
[2017-08-02] MEDS: Naproxen 275 mg Tab PO SCH (09:07)
[2017-08-02] MEDS: Mupirocin 2% Ointment 15 GM TUBE NS SCH (09:15)
[2017-08-02] MEDS ORDERED: Metoprolol Succinate 50 mg XL Tab PO SCH (10:00)
[2017-08-02] MEDS ORDERED: Levothyroxine 75 MCG TAB PO SCH (10:00)
[2017-08-02] MEDS: Linezolid 600 mg in D5W 300 ml 600 MG/300 ML BAG IVPB SCH ×2 (11:03→23:11)
[2017-08-02] MEDS: Insulin Lispro (humaLOG) LOW Coverage SC SCH ×3 (11:43→21:52)
--- NOTE | 2017-08-02 11:59 | CP.PCM.CON ---
History of Present Illness - History of Present Illness History of Present Illness: 81 year old female with PMH of obesity with BMI 36, osteoarthritis, HTN, DM, hypothyroidism, S/P left toe amputation, S/P right hip surgery was sent in by Dr. Patterson from the wound care center for admission because of worsening right heel ulcer which has been present since 3 weeks ago. It started as an open ulcer and it started getting bigger, with surrounding swelling and erythema and some discharge. The patient has been regularly seeing Dr. Patterson in the wound care center for the left heel ulcer. Prior to this admission, she was recently treated in June 2017 for the left heel ulcer which grew MRSA and was given a week of Clindamycin. She denies animal contacts, no fever or chills, no soaking of her feet in water, no nausea or vomiting, no headache or dizziness, no chest pain, no abdominal pain, no diarrhea, no dysuria. Infectious Diseases consult is requested to further evaluate and manage. Review of Systems - Review of Systems All systems: reviewed and no additional remarkable complaints except (as per HPI ) Past Patient History - Infectious Disease Hx of Infectious Diseases: None - Tetanus Immunizations Tetanus Immunization: Unknown - Past Medical History & Family History Past Medical History?: Yes - Past Social History Smoking Status: Never Smoked - CARDIAC Hx Cardiac Disorders: Yes Hx Hypertension: Yes - PULMONARY Hx Respiratory Disorders: No - NEUROLOGICAL Hx Neurological Disorder: No - HEENT Hx HEENT Problems: No - RENAL Hx Chronic Kidney Disease: No - ENDOCRINE/METABOLIC Hx Diabetes Mellitus Type 2: Yes Hx Hypothyroidism: Yes - HEMATOLOGICAL/ONCOLOGICAL Hx Blood Disorders: No - INTEGUMENTARY Hx Dermatological Problems: No - MUSCULOSKELETAL/RHEUMATOLOGICAL Hx Falls: Yes - GASTROINTESTINAL Hx Gastrointestinal Disorders: No - GENITOURINARY/GYNECOLOGICAL Hx Genitourinary Disorders: Yes (urgency frequency) Hx Reproductive Disorders: No - PSYCHIATRIC Hx Psychophysiologic Disorder: Yes Hx Depression: Yes Hx Substance Use: No - SURGICAL HISTORY Hx Amputation: Yes (LEFT GREAT TOE, RIGHT 2ND TOE) Hx Musculoskeletal Surgery: Yes - ANESTHESIA Hx Anesthesia: Yes Hx Anesthesia Reactions: (not known) Hx Malignant Hyperthermia: No Meds Allergies/Adverse Reactions: Allergies Allergy/AdvReac Type Severity Reaction Status Date / Time Penicillins Allergy ITCHING Verified 08/01/17 22:35 - Medications Medications: Current Medications Acetaminophen (Tylenol 325mg Tab) 650 mg PO Q4 PRN PRN Reason: Pain, Mild (1-3) Aspirin (Ecotrin) 81 mg PO DAILY [facility] Atorvastatin Calcium (Lipitor) 20 mg PO HS [facility] Last Admin: 08/01/17 21:48 Dose: 20 mg Glipizide (Glucotrol) 2.5 mg PO BID [facility] Last Admin: 08/01/17 18:15 Dose: 2.5 mg Heparin Sodium (Porcine) (Heparin) 5,000 units SC Q8 [facility] PRN Reason: Protocol Last Admin: 08/01/17 21:44 Dose: 5,000 units Aztreonam (Azactam 1 Gm) 100 mls @ 100 mls/hr IVPB ONCE ONE PRN Reason: Protocol Stop: 08/02/17 01:59 Vancomycin HCl 1.5 gm/ Sodium (Chloride) 500 mls @ 167 mls/hr IVPB ONCE ONE Stop: 08/02/17 03:59 Insulin Detemir (Levemir) 30 unit SC DAILY [facility] Insulin Human Regular (Humulin R Med) 0 units SC ACHS [facility] PRN Reason: Protocol Last Admin: 08/01/17 17:00 Dose: 1 units Levothyroxine Sodium (Synthroid) 75 mcg PO DAILY [facility] Losartan Potassium (Cozaar) 25 mg PO DAILY [facility] Metoprolol Succinate (Toprol Xl) 25 mg PO BRK [facility] Mupirocin (Bactroban Ointment) 0 gm NS BID [facility] Stop: 08/06/17 10:01 Naproxen (Anaprox) 275 mg PO BID [facility] Last Admin: 08/01/17 21:45 Dose: 275 mg Pantoprazole Sodium (Protonix Ec Tab) 40 mg PO 0600 [facility] Quetiapine Fumarate (Seroquel) 25 mg PO HS [facility] PRN Reason: Protocol Last Admin: 08/01/17 21:48 Dose: 25 mg Physical Exam - Constitutional Appears: Non-toxic, No Acute Distress - Head Exam Head Exam: NORMAL INSPECTION - ENT Exam ENT Exam: Mucous Membranes Moist - Neck Exam Neck exam: Negative for: Lymphadenopathy, Meningismus - Respiratory Exam Respiratory Exam: Decreased Breath Sounds. absent: Rales - Cardiovascular Exam Cardiovascular Exam: +S1, +S2 - GI/Abdominal Exam GI & Abdominal Exam: Soft. absent: Tenderness - Extremities Exam Additional comments: both feet with dressings in place Results - Vital Signs Recent Vital Signs: Last Vital Signs Temp 98.8 F 08/01/17 17:49 Pulse 83 08/01/17 17:49 Resp 19 08/01/17 17:49 BP 109/43 L 08/01/17 17:49 Pulse Ox 96 08/01/17 17:49 - Labs Result Diagrams: 08/02/17 06:00 08/02/17 06:00 Labs: Laboratory Results - last 24 hr 08/01/17 08/01/17 08/01/17 15:35 16:41 21:42 pO2 30 VBG pH 7.39 VBG pCO2 56.0 VBG HCO3 33.9 H VBG Total CO2 35.6 H VBG O2 Sat (Calc) 64.5 VBG Base Excess 7.1 H VBG Potassium 4.8 Sodium 140.0 Chloride 104.0 Glucose 168 H Lactate 2.0 FiO2 21.0 POC Glucose (mg/dL) 155 H 125 H Venous Blood Potassium 4.8 Assessment & Plan - Assessment and Plan (Free Text) Plan: Assessment right heel ulcer, infected, R/O osteomyelitis peripheral arterial disease history of left heel infected ulcer with cellulitis without evidence of osteomyelitis on MRI history of 2nd right toe and metatarsal head osteomyelitis S/P surgery chronic renal failure obesity with BMI 38 osteoarthritis HTN DM hypothyroidism S/P left toe amputation S/P right hip surgery Plan started Zyvox and Azactam pending wound cx , blood cx, MRI of right foot follow up Podiatry recommendations will monitor clinically
[2017-08-02] MEDS ORDERED: Naproxen 275 mg Tab PO PRN (12:02)
--- NOTE | 2017-08-02 12:57 | CP.PCM.PN ---
<Tatum Messer - Last Filed: 08/02/17 12:53> Subjective - Date & Time of Evaluation Date of Evaluation: 08/02/17 Time of Evaluation: 10:15 - Subjective Subjective: IM progress note for Dr. Mancuso-Tatum Messer, PGY-1 Pt S & E at bedside at 0740 Pt reports numbness of B/L feet. Denies F & C, N & V, tolerating diet. Sleeping ok. Moving bowels ok. Per nursing- pt w/candidia under breasts bilaterally- has been holding BP meds due to hypotension, held long acting insulin due to low BS. Objective - Vital Signs/Intake and Output Vital Signs (last 24 hours): Temp Pulse Resp BP Pulse Ox 97.6 F 80 20 101/48 L 97 08/02/17 08:22 08/02/17 09:16 08/02/17 08:22 08/02/17 09:16 08/02/17 08:22 - Medications Medications: Current Medications Acetaminophen (Tylenol 325mg Tab) 650 mg PO Q4 PRN PRN Reason: Pain, Mild (1-3) Aspirin (Ecotrin) 81 mg PO DAILY [facility] Last Admin: 08/02/17 09:06 Dose: 81 mg Atorvastatin Calcium (Lipitor) 20 mg PO HS [facility] Last Admin: 08/01/17 21:48 Dose: 20 mg Heparin Sodium (Porcine) (Heparin) 5,000 units SC Q8 [facility] PRN Reason: Protocol Last Admin: 08/02/17 05:44 Dose: 5,000 units Aztreonam (Azactam 1 Gm) 100 mls @ 100 mls/hr IVPB Q8 [facility] PRN Reason: Protocol Last Admin: 08/02/17 05:43 Dose: 100 mls/hr Linezolid (Zyvox 600mg/300ml D5w) 600 mg in 300 mls @ 200 mls/hr IVPB Q12 [facility] PRN Reason: Protocol Stop: 08/09/17 10:01 Last Admin: 08/02/17 11:03 Dose: 200 mls/hr Insulin Detemir (Levemir) 30 unit SC DAILY [facility] Last Admin: 08/02/17 09:16 Dose: Not Given Insulin Human Lispro (Humalog Low) 0 units SC ACHS [facility] PRN Reason: Protocol Last Admin: 08/02/17 11:43 Dose: 2 units Levothyroxine Sodium (Synthroid) 75 mcg PO ACB [facility] Losartan Potassium (Cozaar) 25 mg PO DAILY [facility] Metoprolol Succinate (Toprol Xl) 25 mg PO BRK [facility] Mupirocin (Bactroban Ointment) 0 gm NS BID [facility] Stop: 08/06/17 10:01 Last Admin: 08/02/17 09:15 Dose: 1 applic Naproxen (Anaprox) 275 mg PO BID PRN PRN Reason: Pain, moderate (4-7) Nystatin (Nystop Topical Powder) 0 gm TOP Q4H [facility] Pantoprazole Sodium (Protonix Ec Tab) 40 mg PO 0600 [facility] Last Admin: 08/02/17 05:44 Dose: 40 mg Quetiapine Fumarate (Seroquel) 25 mg PO HS [facility] PRN Reason: Protocol Last Admin: 08/01/17 21:48 Dose: 25 mg - Labs Labs: 08/02/17 06:00 08/02/17 06:00 PT 12.4 SECONDS (9.4-12.5) 08/01/17 10:56 INR 1.08 (0.93-1.08) 08/01/17 10:56 APTT 31.8 Seconds (25.1-36.5) 08/01/17 10:56 - Constitutional Appears: Non-toxic, No Acute Distress - Head Exam Head Exam: ATRAUMATIC, NORMAL INSPECTION, NORMOCEPHALIC - Eye Exam Eye Exam: EOMI, Normal appearance - ENT Exam ENT Exam: Mucous Membranes Moist, Normal Exam - Neck Exam Neck Exam: Full ROM, Normal Inspection - Respiratory Exam Respiratory Exam: Clear to Ausculation Bilateral, NORMAL BREATHING PATTERN - Cardiovascular Exam Cardiovascular Exam: REGULAR RHYTHM, +S1, +S2 - GI/Abdominal Exam GI & Abdominal Exam: Soft. absent: Distended (obese), Tenderness - Extremities Exam Extremities Exam: Pedal Edema (bilaterally) Additional comments: Left foot with optifoam in place over heel, right foot with kirlex dressing in place around heel/ankle- clean/dry/intact - Neurological Exam Neurological Exam: Alert, Awake, CN II-XII Intact, Oriented x3 - Psychiatric Exam Psychiatric exam: Normal Affect, Normal Mood - Skin Skin Exam: Dry, Intact, Warm. absent: Normal Color (skin darkening of lower extremities bilaterally) Assessment and Plan - Assessment and Plan (Free Text) Assessment: 81F w/PMH sig for CAD, DM, PAD, neuropathy, hx transmetatarsal amputation of L hallux & R 2nd toe, admitted for failure of outpatient Abx for L heel wound Plan: DM foot ulcer of R ankle FU repeat wound fx x-ray neg for osteo Multipodus boots for feet Cont contact isolation Turn Q2H Tylenol PRN Naproxen changed to PRN ID following- Started on zyvox & Azactam, FU cxrs, rec MRI of R foot Poditary following - awaiting recs CAD ASA Lipitor Toprol Cozaar Parameters for BP medication entered DM A1c D/c Glipizide ISS low Accuchecks Hold Levemir if BS<140 CCHO diet Supplements Insomnia Seroquel Hypothyroidism Synthroid Breast candidasis Nystatin topical Monitor GI/DVT ppx Protonix Hep SQ PT/OT eval DW attending Ayde, PGY-1 <Ricardo Mancuso - Last Filed: 08/02/17 14:55> Objective - Vital Signs/Intake and Output Vital Signs (last 24 hours): Temp Pulse Resp BP Pulse Ox 97.6 F 80 20 101/48 L 97 08/02/17 08:22 08/02/17 09:16 08/02/17 08:22 08/02/17 09:16 08/02/17 08:22 - Medications Medications: Current Medications Acetaminophen (Tylenol 325mg Tab) 650 mg PO Q4 PRN PRN Reason: Pain, Mild (1-3) Aspirin (Ecotrin) 81 mg PO DAILY [facility] Last Admin: 08/02/17 09:06 Dose: 81 mg Atorvastatin Calcium (Lipitor) 20 mg PO HS [facility] Last Admin: 08/01/17 21:48 Dose: 20 mg Heparin Sodium (Porcine) (Heparin) 5,000 units SC Q8 [facility] PRN Reason: Protocol Last Admin: 08/02/17 05:44 Dose: 5,000 units Aztreonam (Azactam 1 Gm) 100 mls @ 100 mls/hr IVPB Q8 [facility] PRN Reason: Protocol Last Admin: 08/02/17 05:43 Dose: 100 mls/hr Linezolid (Zyvox 600mg/300ml D5w) 600 mg in 300 mls @ 200 mls/hr IVPB Q12 [facility] PRN Reason: Protocol Stop: 08/09/17 10:01 Last Admin: 08/02/17 11:03 Dose: 200 mls/hr Insulin Detemir (Levemir) 30 unit SC DAILY [facility] Last Admin: 08/02/17 09:16 Dose: Not Given Insulin Human Lispro (Humalog Low) 0 units SC ACHS [facility] PRN Reason: Protocol Last Admin: 08/02/17 11:43 Dose: 2 units Levothyroxine Sodium (Synthroid) 75 mcg PO ACB [facility] Losartan Potassium (Cozaar) 25 mg PO DAILY [facility] Metoprolol Succinate (Toprol Xl) 25 mg PO BRK [facility] Mupirocin (Bactroban Ointment) 0 gm NS BID [facility] Stop: 08/06/17 10:01 Last Admin: 08/02/17 09:15 Dose: 1 applic Naproxen (Anaprox) 275 mg PO BID PRN PRN Reason: Pain, moderate (4-7) Nystatin (Nystop Topical Powder) 0 gm TOP Q4H [facility] Pantoprazole Sodium (Protonix Ec Tab) 40 mg PO 0600 [facility] Last Admin: 08/02/17 05:44 Dose: 40 mg Quetiapine Fumarate (Seroquel) 25 mg PO HS [facility] PRN Reason: Protocol Last Admin: 08/01/17 21:48 Dose: 25 mg - Labs Labs: 08/02/17 06:00 08/02/17 06:00 PT 12.4 SECONDS (9.4-12.5) 08/01/17 10:56 INR 1.08 (0.93-1.08) 08/01/17 10:56 APTT 31.8 Seconds (25.1-36.5) 08/01/17 10:56 Attending/Attestation - Attestation I have personally seen and examined this patient.: Yes I have fully participated in the care of the patient.: Yes I have reviewed all pertinent clinical information, including history, physical exam and plan: Yes Notes (Text): 08/02/17 14:50 attending note; Patient seen and examined with resident. Patient is a 81-year-old female with asked medical history of hypertension, Diabetes, insomnia, neuropathy, amputation of L great toe and R second toe was sent into ED from wound care center by absorber operator for an infected right heel ulcer. patient had recent culture positive for MRSA. Treated with clindamycin as outpatient. Did not respond to treatment well. Currently sent in for IV anti-biotics. Started on IV Zyvox and Azactam. Patient is allergic to penicillin. x-ray of the ankle is negative. MRI of the right foot ordered to rule out osteomyelitis. diabetes; continue sliding scale. patient had episode of hypoglycemia. glipizide discontinued. Levemir on hold. hypertension; continue Cozaar and metoprolol. Holding parameters ordered. Local wound care by podiatry. ID evaluation appreciated. upon discharge patient will follow up with PMD .
[2017-08-02] MEDS: Nystatin 100,000 Units/gm Topical Pow(15 gm) TOP SCH ×3 (14:49→21:53)
--- NOTE | 2017-08-02 16:11 | CP.PCM.CON ---
<Mary Guillaume - Last Filed: 08/02/17 16:16> History of Present Illness - History of Present Illness History of Present Illness: 81 y/o female with PMHx of CAD, Diabetes, PAD, neuropathy, and previous amputations of L great toe and R second toes seen and examined at bedside with attending Dr. Owusu regarding bilateral heel ulcerations. Pt states she was seen in the [facility] yesterday and Dr. Patterson recommended she come into the hospital. She states she has been treated for the left heel black and blue for awhile but states the right heel wound is new and just opened up. Pt states she has been wearing new shoegear and thinks this may be the cause. At present, denies pain to the lower extremities, as she does not have sensation in her feet. Denies F/C/N/V/CP/SOB Review of Systems - Review of Systems All systems: reviewed and no additional remarkable complaints except (per HPI) Past Patient History - Infectious Disease Hx of Infectious Diseases: None - Tetanus Immunizations Tetanus Immunization: Unknown - Past Medical History & Family History Past Medical History?: Yes - Past Social History Smoking Status: Never Smoked - CARDIAC Hx Cardiac Disorders: Yes Hx Hypertension: Yes - PULMONARY Hx Respiratory Disorders: No - NEUROLOGICAL Hx Neurological Disorder: No - HEENT Hx HEENT Problems: No - RENAL Hx Chronic Kidney Disease: No - ENDOCRINE/METABOLIC Hx Diabetes Mellitus Type 2: Yes Hx Hypothyroidism: Yes - HEMATOLOGICAL/ONCOLOGICAL Hx Blood Disorders: No - INTEGUMENTARY Hx Dermatological Problems: No - MUSCULOSKELETAL/RHEUMATOLOGICAL Hx Falls: Yes - GASTROINTESTINAL Hx Gastrointestinal Disorders: No - GENITOURINARY/GYNECOLOGICAL Hx Genitourinary Disorders: Yes (urgency frequency) Hx Reproductive Disorders: No - PSYCHIATRIC Hx Psychophysiologic Disorder: Yes Hx Depression: Yes Hx Substance Use: No - SURGICAL HISTORY Hx Amputation: Yes (LEFT GREAT TOE, RIGHT 2ND TOE) Hx Musculoskeletal Surgery: Yes - ANESTHESIA Hx Anesthesia: Yes Hx Anesthesia Reactions: (not known) Hx Malignant Hyperthermia: No Meds Allergies/Adverse Reactions: Allergies Allergy/AdvReac Type Severity Reaction Status Date / Time Penicillins Allergy ITCHING Verified 08/01/17 22:35 - Medications Medications: Current Medications Acetaminophen (Tylenol 325mg Tab) 650 mg PO Q4 PRN PRN Reason: Pain, Mild (1-3) Aspirin (Ecotrin) 81 mg PO DAILY [facility] Last Admin: 08/02/17 09:06 Dose: 81 mg Atorvastatin Calcium (Lipitor) 20 mg PO HS [facility] Last Admin: 08/01/17 21:48 Dose: 20 mg Heparin Sodium (Porcine) (Heparin) 5,000 units SC Q8 [facility] PRN Reason: Protocol Last Admin: 08/02/17 14:44 Dose: 5,000 units Aztreonam (Azactam 1 Gm) 100 mls @ 100 mls/hr IVPB Q8 [facility] PRN Reason: Protocol Last Admin: 08/02/17 14:47 Dose: 100 mls/hr Linezolid (Zyvox 600mg/300ml D5w) 600 mg in 300 mls @ 200 mls/hr IVPB Q12 [facility] PRN Reason: Protocol Stop: 08/09/17 10:01 Last Admin: 08/02/17 11:03 Dose: 200 mls/hr Insulin Detemir (Levemir) 30 unit SC DAILY [facility] Last Admin: 08/02/17 09:16 Dose: Not Given Insulin Human Lispro (Humalog Low) 0 units SC ACHS [facility] PRN Reason: Protocol Last Admin: 08/02/17 11:43 Dose: 2 units Levothyroxine Sodium (Synthroid) 75 mcg PO ACB [facility] Losartan Potassium (Cozaar) 25 mg PO DAILY [facility] Metoprolol Succinate (Toprol Xl) 25 mg PO BRK [facility] Mupirocin (Bactroban Ointment) 0 gm NS BID [facility] Stop: 08/06/17 10:01 Last Admin: 08/02/17 09:15 Dose: 1 applic Naproxen (Anaprox) 275 mg PO BID PRN PRN Reason: Pain, moderate (4-7) Nystatin (Nystop Topical Powder) 0 gm TOP Q4H [facility] Last Admin: 08/02/17 14:49 Dose: 1 applic Pantoprazole Sodium (Protonix Ec Tab) 40 mg PO 0600 [facility] Last Admin: 08/02/17 05:44 Dose: 40 mg Quetiapine Fumarate (Seroquel) 25 mg PO HS [facility] PRN Reason: Protocol Last Admin: 08/01/17 21:48 Dose: 25 mg Physical Exam - Constitutional Appears: Well, Non-toxic, No Acute Distress - Extremities Exam Additional comments: VASC: DP and PT pulses nonpalpable B/L. CFT delayed but present. Temperature gradient warm to warm. Bilateral non-pitting lower extremity edema noted. NEURO: Gross sensation absent. DERM: Full thickness ulceration located to plantar medial aspect of right heel measuring approximately 2cm x 2cm x 0.2 cm - wound base is a mixture of granular and fibrotic tissue. Mild serosanguinous drainage noted on inner dressing. Mild malodor present. Roselyn wound exhibits skin erythema >2cm in margins. No purulence, no fluctuance, no undermining, no tunneling. Deep tissue injury noted to plantar posterior aspect of left heel with black and blue discoloration. Distal to DTI there is a healed pressure ulceration with overlying hyperkeratotic skin present. ORTHO: Multiple amputated digits. No pain on palpation bilateral lower extremity. - Neurological Exam Neurological exam: Alert, Oriented x3 - Psychiatric Exam Psychiatric exam: Normal Affect, Normal Mood Results - Vital Signs Recent Vital Signs: Last Vital Signs Temp 97.6 F 08/02/17 08:22 Pulse 80 08/02/17 09:16 Resp 20 08/02/17 08:22 BP 101/48 L 08/02/17 09:16 Pulse Ox 97 08/02/17 08:22 - Labs Result Diagrams: 08/02/17 06:00 08/02/17 06:00 Labs: Laboratory Results - last 24 hr 08/01/17 08/01/17 08/02/17 16:41 21:42 06:00 WBC 7.3 RBC 3.34 L Hgb 10.2 L Hct 31.4 L MCV 94.0 MCH 30.5 MCHC 32.5 RDW 13.6 Plt Count 199 MPV 11.9 H Gran % 52.5 Lymph % (Auto) 31.0 Mineral % (Auto) 11.3 H Eos % (Auto) 4.6 Baso % (Auto) 0.6 Gran # 3.81 Lymph # (Auto) 2.3 Mineral # (Auto) 0.8 H Eos # (Auto) 0.3 Baso # (Auto) 0.04 Sodium Potassium Chloride Carbon Dioxide Anion Gap BUN Creatinine Est GFR ( Amer) Est GFR (Non-Af Amer) POC Glucose (mg/dL) 155 H 125 H Random Glucose Calcium Total Bilirubin AST ALT Alkaline Phosphatase Total Protein Albumin Globulin Albumin/Globulin Ratio 08/02/17 08/02/17 08/02/17 06:00 07:38 08:13 WBC RBC Hgb Hct MCV MCH MCHC RDW Plt Count MPV Gran % Lymph % (Auto) Mineral % (Auto) Eos % (Auto) Baso % (Auto) Gran # Lymph # (Auto) Mineral # (Auto) Eos # (Auto) Baso # (Auto) Sodium 145 Potassium 3.8 Chloride 108 H Carbon Dioxide 29 Anion Gap 12 BUN 28 H Creatinine 1.2 Est GFR ( Amer) 52 Est GFR (Non-Af Amer) 43 POC Glucose (mg/dL) 44 L 66 Random Glucose 54 L Calcium 8.8 Total Bilirubin 0.4 AST 35 ALT 25 Alkaline Phosphatase 148 H D Total Protein 6.4 Albumin 3.1 Globulin 3.2 Albumin/Globulin Ratio 1.0 L 08/02/17 08/02/17 11:26 16:01 WBC RBC Hgb Hct MCV MCH MCHC RDW Plt Count MPV Gran % Lymph % (Auto) Mineral % (Auto) Eos % (Auto) Baso % (Auto) Gran # Lymph # (Auto) Mineral # (Auto) Eos # (Auto) Baso # (Auto) Sodium Potassium Chloride Carbon Dioxide Anion Gap BUN Creatinine Est GFR ( Amer) Est GFR (Non-Af Amer) POC Glucose (mg/dL) 233 H 197 H Random Glucose Calcium Total Bilirubin AST ALT Alkaline Phosphatase Total Protein Albumin Globulin Albumin/Globulin Ratio Assessment & Plan - Assessment and Plan (Free Text) Assessment: 81 year old female with 1) right plantar heel ulceration and 2) left heel deep tissue injury Plan: Patient seen and evaluated at bedside with attending Dr. Owusu X-rays (-) for any signs of osteomyelitis Foot MRI taken, report pending New wound cx taken of right heel ulcer Bilateral heel wounds cleansed with saline R heel wound dressed with maxorb, adaptic, ABD, DSD; L heel dressed with xeroform, ABD, DSD Continue heel offloading boots at all times while in bed Continue abx per ID Podiatry will continue to follow patient while in house <Robby Owusu - Last Filed: 08/03/17 18:17> Meds - Medications Medications: Current Medications Acetaminophen (Tylenol 325mg Tab) 650 mg PO Q4 PRN PRN Reason: Pain, Mild (1-3) Aspirin (Ecotrin) 81 mg PO DAILY [facility] Last Admin: 08/03/17 10:36 Dose: 81 mg Atorvastatin Calcium (Lipitor) 20 mg PO HS [facility] Last Admin: 08/02/17 21:52 Dose: 20 mg Cadexomer Iodine (Iodosorb) 0 gm TOP DAILY [facility] Last Admin: 08/03/17 10:37 Dose: 1 gm Heparin Sodium (Porcine) (Heparin) 5,000 units SC Q8 [facility] PRN Reason: Protocol Last Admin: 08/03/17 14:23 Dose: 5,000 units Aztreonam (Azactam 1 Gm) 100 mls @ 100 mls/hr IVPB Q8 [facility] PRN Reason: Protocol Last Admin: 08/03/17 14:23 Dose: 100 mls/hr Linezolid (Zyvox 600mg/300ml D5w) 600 mg in 300 mls @ 200 mls/hr IVPB Q12 [facility] PRN Reason: Protocol Stop: 08/09/17 10:01 Last Admin: 08/03/17 10:36 Dose: 200 mls/hr Insulin Detemir (Levemir) 10 unit SC DAILY [facility] Insulin Human Lispro (Humalog Low) 0 units SC ACHS [facility] PRN Reason: Protocol Last Admin: 08/03/17 17:38 Dose: 2 units Levothyroxine Sodium (Synthroid) 75 mcg PO ACB [facility] Last Admin: 08/03/17 07:56 Dose: 75 mcg Losartan Potassium (Cozaar) 25 mg PO DAILY [facility] Last Admin: 08/03/17 10:36 Dose: 25 mg Metoprolol Succinate (Toprol Xl) 25 mg PO BRK [facility] Last Admin: 08/03/17 07:55 Dose: 25 mg Naproxen (Anaprox) 275 mg PO BID PRN PRN Reason: Pain, moderate (4-7) Last Admin: 08/02/17 21:56 Dose: 275 mg Nystatin (Nystop Topical Powder) 0 gm TOP Q4H [facility] Last Admin: 08/03/17 17:39 Dose: 1 applic Pantoprazole Sodium (Protonix Ec Tab) 40 mg PO 0600 [facility] Last Admin: 08/03/17 06:04 Dose: 40 mg Quetiapine Fumarate (Seroquel) 25 mg PO HS [facility] PRN Reason: Protocol Last Admin: 08/02/17 21:54 Dose: 25 mg Results - Vital Signs Recent Vital Signs: Last Vital Signs Temp 98.5 F 08/03/17 18:08 Pulse 81 08/03/17 18:08 Resp 20 08/03/17 18:08 BP 100/51 L 08/03/17 18:08 Pulse Ox 97 08/03/17 18:08 - Labs Result Diagrams: 08/03/17 06:30 08/03/17 06:30 Labs: Laboratory Results - last 24 hr 08/02/17 08/03/17 08/03/17 21:19 06:09 06:30 WBC 6.4 RBC 3.51 Hgb 10.7 L Hct 32.8 L MCV 93.4 MCH 30.5 MCHC 32.6 RDW 13.3 Plt Count 192 MPV 11.7 H Gran % 54.5 Lymph % (Auto) 29.4 Mineral % (Auto) 9.3 H Eos % (Auto) 6.3 H Baso % (Auto) 0.5 Gran # 3.47 Lymph # (Auto) 1.9 Mineral # (Auto) 0.6 Eos # (Auto) 0.4 Baso # (Auto) 0.03 Sodium Potassium Chloride Carbon Dioxide Anion Gap BUN Creatinine Est GFR ( Amer) Est GFR (Non-Af Amer) POC Glucose (mg/dL) 176 H 149 H Random Glucose Calcium Total Bilirubin AST ALT Alkaline Phosphatase Total Protein Albumin Globulin Albumin/Globulin Ratio 08/03/17 08/03/17 08/03/17 06:30 11:25 16:32 WBC RBC Hgb Hct MCV MCH MCHC RDW Plt Count MPV Gran % Lymph % (Auto) Mineral % (Auto) Eos % (Auto) Baso % (Auto) Gran # Lymph # (Auto) Mineral # (Auto) Eos # (Auto) Baso # (Auto) Sodium 143 Potassium 4.1 Chloride 106 Carbon Dioxide 28 Anion Gap 13 BUN 27 H Creatinine 1.0 Est GFR ( Amer) > 60 Est GFR (Non-Af Amer) 53 POC Glucose (mg/dL) 284 H 231 H Random Glucose 161 H Calcium 8.5 Total Bilirubin 0.3 AST 38 H ALT 28 Alkaline Phosphatase 184 H D Total Protein 6.6 Albumin 3.3 Globulin 3.3 Albumin/Globulin Ratio 1.0 L Attending/Attestation - Attestation I have personally seen and examined this patient.: Yes I have fully participated in the care of the patient.: Yes I have reviewed all pertinent clinical information: Yes
--- NOTE | 2017-08-02 16:33 | MRI ---
PROCEDURE: MRI of the right foot without contrast HISTORY: rule out osteomyelitis COMPARISON: TECHNIQUE: MRI of the right foot was performed in multiple planes using multiple pulse sequences. FINDINGS: There is no marrow edema in the calcaneus to suggest osteomyelitis. There is a large plantar calcaneal spur. The Achilles tendon is unremarkable. Degenerative changes are seen in the midfoot. IMPRESSION: No evidence of osteomyelitis
[2017-08-03] MEDS: Nystatin 100,000 Units/gm Topical Pow(15 gm) TOP SCH ×6 (01:01→17:39)
[2017-08-03] MEDS: Aztreonam 1 Gm in NS 100mL 100 ML IVPB SCH ×3 (06:03→21:59)
[2017-08-03] MEDS: Pantoprazole 40 mg EC Tab PO SCH (06:04)
[2017-08-03 07:11] LABS: BASO # 0.03 K/mm3 (0.0-2.0); BASO % 0.5 % (0.0-3.0); EOS # 0.4 (0.0-0.7); EOS % 6.3 % (1.5-5.0); GRAN # 3.47 (1.4-6.5); GRAN % 54.5 % (50.0-68.0); HEMOGLOBIN 10.7 g/dL (12.0-16.0); LYMPH # 1.9 (1.2-3.4); LYMPH % 29.4 % (22.0-35.0); MEAN CELL VOLUME 93.4 fl (80.0-105.0); MEAN CORPUSCULAR HEMOGLOBIN 30.5 pg (25.0-35.0); MEAN CORPUSCULAR HGB CONC 32.6 g/dl (31.0-37.0); MEAN PLATELET VOLUME 11.7 fl (7.0-11.0); MONO # 0.6 (0.1-0.6); MONO % 9.3 % (1.0-6.0); RBC 3.51 10^6/uL (3.5-6.1); RED CELL DISTRIBUTION WIDTH 13.3 % (11.5-14.5); WHITE BLOOD COUNT 6.4 10^3/ul (4.5-11.0)
[2017-08-03 07:31] LABS: ALBUMIN 3.3 g/dL (3.0-4.8); ALT/SGPT 28 U/L (7-56); AST/SGOT 38 U/L (14-36); BLOOD UREA NITROGEN 27 mg/dL (7-21); CALCIUM 8.5 mg/dL (8.4-10.5); GFR AFRICAN-AMERICAN > 60; GFR NON-AFRICAN AMERICAN 53
[2017-08-03] MEDS: Insulin Lispro (humaLOG) LOW Coverage SC SCH ×4 (07:56→21:56)
[2017-08-03] MEDS: Levothyroxine 75 MCG TAB PO SCH (07:56)
--- NOTE | 2017-08-03 09:19 | CP.PCM.PN ---
Subjective - Date & Time of Evaluation Date of Evaluation: 08/03/17 Time of Evaluation: 09:15 - Subjective Subjective: 81 y/o female seen and evaluated at bedside this morning with attending Dr. Patterson regarding right posterior heel ulceration and left heel deep tissue injury. Pt resting comfortably in bed with multipodus boots on at time of visit. Denies any pain to her lower extremities. Denies F/C/N/V/CP/SOB. Has no new pedal complaints today Objective - Vital Signs/Intake and Output Vital Signs (last 24 hours): Temp Pulse Resp BP Pulse Ox 97.2 F L 98 H 20 145/69 98 08/03/17 08:32 08/03/17 08:32 08/03/17 08:32 08/03/17 08:32 08/03/17 08:32 Intake and Output: 08/03/17 08/03/17 06:59 18:59 Intake Total 540 Output Total 400 Balance 140 - Medications Medications: Current Medications Acetaminophen (Tylenol 325mg Tab) 650 mg PO Q4 PRN PRN Reason: Pain, Mild (1-3) Aspirin (Ecotrin) 81 mg PO DAILY [facility] Last Admin: 08/02/17 09:06 Dose: 81 mg Atorvastatin Calcium (Lipitor) 20 mg PO HS [facility] Last Admin: 08/02/17 21:52 Dose: 20 mg Cadexomer Iodine (Iodosorb) 0 gm TOP DAILY [facility] Heparin Sodium (Porcine) (Heparin) 5,000 units SC Q8 [facility] PRN Reason: Protocol Last Admin: 08/03/17 06:03 Dose: 5,000 units Aztreonam (Azactam 1 Gm) 100 mls @ 100 mls/hr IVPB Q8 [facility] PRN Reason: Protocol Last Admin: 08/03/17 06:03 Dose: 100 mls/hr Linezolid (Zyvox 600mg/300ml D5w) 600 mg in 300 mls @ 200 mls/hr IVPB Q12 [facility] PRN Reason: Protocol Stop: 08/09/17 10:01 Last Admin: 08/02/17 23:11 Dose: 200 mls/hr Insulin Detemir (Levemir) 30 unit SC DAILY [facility] Last Admin: 08/02/17 09:16 Dose: Not Given Insulin Human Lispro (Humalog Low) 0 units SC ACHS [facility] PRN Reason: Protocol Last Admin: 08/03/17 07:56 Dose: Not Given Levothyroxine Sodium (Synthroid) 75 mcg PO ACB [facility] Last Admin: 08/03/17 07:56 Dose: 75 mcg Losartan Potassium (Cozaar) 25 mg PO DAILY [facility] Metoprolol Succinate (Toprol Xl) 25 mg PO BRK [facility] Last Admin: 08/03/17 07:55 Dose: 25 mg Mupirocin (Bactroban Ointment) 0 gm NS BID [facility] Stop: 08/06/17 10:01 Last Admin: 08/02/17 09:15 Dose: 1 applic Naproxen (Anaprox) 275 mg PO BID [facility] PRN Reason: Pain, moderate (4-7) Last Admin: 08/02/17 21:56 Dose: 275 mg Nystatin (Nystop Topical Powder) 0 gm TOP Q4H [facility] Last Admin: 08/03/17 07:56 Dose: 1 applic Pantoprazole Sodium (Protonix Ec Tab) 40 mg PO 0600 [facility] Last Admin: 08/03/17 06:04 Dose: 40 mg Quetiapine Fumarate (Seroquel) 25 mg PO HS [facility] PRN Reason: Protocol Last Admin: 08/02/17 21:54 Dose: 25 mg - Labs Labs: 08/03/17 06:30 08/03/17 06:30 PT 12.4 SECONDS (9.4-12.5) 08/01/17 10:56 INR 1.08 (0.93-1.08) 08/01/17 10:56 APTT 31.8 Seconds (25.1-36.5) 08/01/17 10:56 - Constitutional Appears: Well, Non-toxic, No Acute Distress - Extremities Exam Additional comments: VASC: DP and PT pulses nonpalpable B/L. CFT delayed but present. Temperature gradient warm to warm. Bilateral non-pitting lower extremity edema noted. NEURO: Gross sensation absent. DERM: Full thickness ulceration located to posteromedial aspect of right heel measuring approximately 2cm x 2cm x 0.2 cm - wound base is a mixture of granular and fibrotic tissue. Mild serosanguinous drainage noted on inner dressing. Mild malodor present. Roselyn wound exhibits skin erythema >2cm in margins. No purulence, no fluctuance, no undermining, no tunneling. Deep tissue injury noted to plantar posterior aspect of left heel with black and blue discoloration. Distal to DTI there is a healed pressure ulceration with overlying hyperkeratotic skin present. Central to ulceration is a small open fissure which exhibits minimal sanguinous drainage on inner dressing. No purulence, no fluctuance, no malodor. ORTHO: Multiple amputated digits. No pain on palpation bilateral lower extremity. - Neurological Exam Neurological Exam: Alert, Awake, Oriented x3 - Psychiatric Exam Psychiatric exam: Normal Affect, Normal Mood Assessment and Plan - Assessment and Plan (Free Text) Assessment: 81 year old female with 1) right posterior heel ulceration and 2) left plantar heel deep tissue injury with skin fissure - likely secondary to new diabetic shoes Plan: Patient seen and evaluated at bedside with attending Dr. Patterson X-rays (-) for any signs of osteomyelitis R foot MRI negative for osteomyelitis, no signs of bone marrow edema, no acute findings Wound cx taken of right heel ulcer pending Bilateral heel wounds cleansed with saline R heel wound dressed with iodosorb ABD, DSD; L heel dressed with ABD, DSD Continue heel offloading boots at all times while in bed Pt may be full weight bearing, with regular surgical shoe on R foot, Darco heel relief shoe on L foot (pt has been dispensed heel relief shoe on previous visit) Wounds likely due to new shoegear - pt advised to discontinue upon discharge Continue IV abx per ID - await cx for tailored abx therapy Podiatry will continue to follow patient while in house
[2017-08-03] MEDS: Linezolid 600 mg in D5W 300 ml 600 MG/300 ML BAG IVPB SCH ×2 (10:36→22:00)
[2017-08-03] MEDS: Mupirocin 2% Ointment 15 GM TUBE NS SCH (10:37)
[2017-08-03] MEDS: CADEXOMER IODINE 0.9% GEL 10G TOP SCH (10:37)
--- NOTE | 2017-08-03 14:23 | CP.PCM.DIS ---
Addendum entered and electronically signed by Tatum Messer DO 08/04/17 12:48: Pt requiring 3 night hospital admission prior to transfer to TCU, now ready for transfer after evaluation/acceptance to unit. Pt seen/examined this AM without any new complaints. Ayde, PGY-1 Original Note: <Tatum Messer - Last Filed: 08/03/17 14:38> Provider - Provider Date of Admission: 08/01/17 12:26 Attending physician: Ricardo Mancuso MD Primary care physician: Shaheen Consults: Podiatry- Leonardo Garcia TCU Time Spent in preparation of Discharge (in minutes): 35 Hospital Course - Lab Results Lab Results: Micro Results 08/02/17 16:08 Foot - Right Gram Stain - Final 08/02/17 16:08 Foot - Right Wound Culture - Preliminary Staphylococcus Aureus 08/01/17 16:20 Abdomen Gram Stain - Final 08/01/17 16:20 Abdomen Wound Culture - Final Methicillin Resistant S Aureus Most Recent Lab Values WBC 6.4 10^3/ul (4.5-11.0) 08/03/17 06:30 RBC 3.51 10^6/uL (3.5-6.1) 08/03/17 06:30 Hgb 10.7 g/dL (12.0-16.0) L 08/03/17 06:30 Hct 32.8 % (36.0-48.0) L 08/03/17 06:30 MCV 93.4 fl (80.0-105.0) 08/03/17 06:30 MCH 30.5 pg (25.0-35.0) 08/03/17 06:30 MCHC 32.6 g/dl (31.0-37.0) 08/03/17 06:30 RDW 13.3 % (11.5-14.5) 08/03/17 06:30 Plt Count 192 10^3/uL (120.0-450.0) 08/03/17 06:30 MPV 11.7 fl (7.0-11.0) H 08/03/17 06:30 Gran % 54.5 % (50.0-68.0) 08/03/17 06:30 Lymph % (Auto) 29.4 % (22.0-35.0) 08/03/17 06:30 [place] % (Auto) 9.3 % (1.0-6.0) H 08/03/17 06:30 Eos % (Auto) 6.3 % (1.5-5.0) H 08/03/17 06:30 Baso % (Auto) 0.5 % (0.0-3.0) 08/03/17 06:30 Gran # 3.47 (1.4-6.5) 08/03/17 06:30 Lymph # (Auto) 1.9 (1.2-3.4) 08/03/17 06:30 [place] # (Auto) 0.6 (0.1-0.6) 08/03/17 06:30 Eos # (Auto) 0.4 (0.0-0.7) 08/03/17 06:30 Baso # (Auto) 0.03 K/mm3 (0.0-2.0) 08/03/17 06:30 ESR 100 mm/hr (0.0-20.0) H 08/01/17 11:00 PT 12.4 SECONDS (9.4-12.5) 08/01/17 10:56 INR 1.08 (0.93-1.08) 08/01/17 10:56 APTT 31.8 Seconds (25.1-36.5) 08/01/17 10:56 pO2 30 mm/Hg (30-55) 08/01/17 15:35 VBG pH 7.39 (7.32-7.43) 08/01/17 15:35 VBG pCO2 56.0 (40-60) 08/01/17 15:35 VBG HCO3 33.9 mmol/l (21-28) H 08/01/17 15:35 VBG Total CO2 35.6 mmol.L (22-28) H 08/01/17 15:35 VBG O2 Sat (Calc) 64.5 % (40-65) 08/01/17 15:35 VBG Base Excess 7.1 mmol/L (0.0-2.0) H 08/01/17 15:35 VBG Potassium 4.8 mmol/L (3.6-5.2) 08/01/17 15:35 Sodium 140.0 mmol/L (132-148) 08/01/17 15:35 Chloride 104.0 mmol/L (98-107) 08/01/17 15:35 Glucose 168 mg/dl (65-105) H 08/01/17 15:35 Lactate 2.0 mmol/L (0.7-2.1) 08/01/17 15:35 FiO2 21.0 % 08/01/17 15:35 Sodium 143 mmol/L (132-148) 08/03/17 06:30 Potassium 4.1 mmol/L (3.6-5.0) 08/03/17 06:30 Chloride 106 mmol/L (98-107) 08/03/17 06:30 Carbon Dioxide 28 mmol/L (21-33) 08/03/17 06:30 Anion Gap 13 (10-20) 08/03/17 06:30 BUN 27 mg/dL (7-21) H 08/03/17 06:30 Creatinine 1.0 mg/dl (0.7-1.2) 08/03/17 06:30 Est GFR ( Amer) > 60 08/03/17 06:30 Est GFR (Non-Af Amer) 53 08/03/17 06:30 POC Glucose (mg/dL) 284 mg/dL (65-110) H 08/03/17 11:25 Random Glucose 161 mg/dL (70-110) H 08/03/17 06:30 Hemoglobin A1c 7.7 % (4.2-6.5) H 08/01/17 07:00 Calcium 8.5 mg/dL (8.4-10.5) 08/03/17 06:30 Total Bilirubin 0.3 mg/dL (0.2-1.3) 08/03/17 06:30 AST 38 U/L (14-36) H 08/03/17 06:30 ALT 28 U/L (7-56) 08/03/17 06:30 Alkaline Phosphatase 184 U/L (38-126) H D 08/03/17 06:30 C-React Prot High Sens 12.60 mg/L (1.00-3.00) H 08/01/17 07:00 Total Protein 6.6 g/dL (5.8-8.3) 08/03/17 06:30 Albumin 3.3 g/dL (3.0-4.8) 08/03/17 06:30 Globulin 3.3 gm/dL 08/03/17 06:30 Albumin/Globulin Ratio 1.0 (1.1-1.8) L 08/03/17 06:30 Triglycerides 103 mg/dL (35-160) 08/01/17 07:00 Cholesterol 118 mg/dL (130-200) L 08/01/17 07:00 LDL Cholesterol Direct 47 mg/dL (0-129) 08/01/17 07:00 HDL Cholesterol 40 mg/dL (29-60) 08/01/17 07:00 Free T4 1.32 ng/dL (0.78-2.19) 08/01/17 07:00 TSH 3rd Generation 3.60 mIU/mL (0.46-4.68) 08/01/17 07:00 Venous Blood Potassium 4.8 mmol/L (3.6-5.2) 08/01/17 15:35 - Hospital Course Hospital Course: 81F with PMHx CAD, Diabetes, PAD, neuropathy, 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 She is a patient of Dr Patterson patient for non- healing ulcer at the heels of L foot. Wound culture was drawn and showed MRSA sensitive to clindamycin, which patient has finished a 1- week course of that. VNA at home changes dressings. Pt has new diabetic shoes. On 07/18, There is a new open wound to posterior R heel. Dr Patterson endorsed that it could be from the new diabetic shoes. Today's pt went to podiatry and found that her L heel became black/purplish with old wound reopened on L foot. Patient reports increased redness in right ankle and lower leg over the past few days. Pt admitted to hospital, started on IV Abx. Home meds restarted. Pt seen/ evaluated by podiatry with recs for wound care, foot care, full weight bearing with regular surgical shoe for right foot and Darco heel relief shoe on Left foot. Pt seen/evalauted by ID with recs for Abx therapy. X-ray & MRI of right heel done- negative for osteomyelitis. Pt treated for fungal skin infection under breasts. Pt seen/evaluted by PT with recs for TCU placement due to deconditioning. Pt stable, ready for transfer to TCU. Diagnoses Osteoarthritis DM HTN Hypothyroidism s/p left toe amputation s/p right hip surgery obesity Right heel ulcer- infected PAD chronic renal failure adrian of skin under breast - Date & Time of H&P Date of H&P: 08/01/17 Time of H&P: 13:25 Discharge Exam - Head Exam Head Exam: ATRAUMATIC, NORMAL INSPECTION, NORMOCEPHALIC - Eye Exam Eye Exam: EOMI, Normal appearance - ENT Exam ENT Exam: Mucous Membranes Moist, Normal Exam - Neck Exam Neck exam: Full Rom, Normal Inspection - Respiratory Exam Respiratory Exam: Clear to PA & Lateral, NORMAL BREATHING PATTERN, UNREMARKABLE - Cardiovascular Exam Cardiovascular Exam: REGULAR RHYTHM, +S1, +S2 - GI/Abdominal Exam GI & Abdominal Exam: Normal Bowel Sounds, Soft, Unremarkable. absent: Tenderness - Extremities Exam Additional comments: B/L foot with dressings in place- clean/dry/intact, multipodus boots in place - Neurological Exam Neurological exam: Alert, CN II-XII Intact, Oriented x3 - Psychiatric Exam Psychiatric exam: Normal Affect, Normal Mood - Skin Skin Exam: Dry, Intact, Warm Additional comments: excluding feet. Distal lower extremities with skin darkening Discharge Plan - Follow Up Plan Condition: STABLE Disposition: REHAB FACILITY/REHAB UNIT Additional Instructions: Please re-start all meds as per EMR on hospital admission- no Glipizide <Ricardo Mancuso - Last Filed: 08/03/17 16:21> Provider - Provider Date of Admission: 08/01/17 12:26 Attending physician: Ricardo Mancuso MD Hospital Course - Lab Results Lab Results: Micro Results 08/02/17 16:08 Foot - Right Gram Stain - Final 08/02/17 16:08 Foot - Right Wound Culture - Preliminary Staphylococcus Aureus 08/01/17 16:20 Abdomen Gram Stain - Final 08/01/17 16:20 Abdomen Wound Culture - Final Methicillin Resistant S Aureus Most Recent Lab Values WBC 6.4 10^3/ul (4.5-11.0) 08/03/17 06:30 RBC 3.51 10^6/uL (3.5-6.1) 08/03/17 06:30 Hgb 10.7 g/dL (12.0-16.0) L 08/03/17 06:30 Hct 32.8 % (36.0-48.0) L 08/03/17 06:30 MCV 93.4 fl (80.0-105.0) 08/03/17 06:30 MCH 30.5 pg (25.0-35.0) 08/03/17 06:30 MCHC 32.6 g/dl (31.0-37.0) 08/03/17 06:30 RDW 13.3 % (11.5-14.5) 08/03/17 06:30 Plt Count 192 10^3/uL (120.0-450.0) 08/03/17 06:30 MPV 11.7 fl (7.0-11.0) H 08/03/17 06:30 Gran % 54.5 % (50.0-68.0) 08/03/17 06:30 Lymph % (Auto) 29.4 % (22.0-35.0) 08/03/17 06:30 [place] % (Auto) 9.3 % (1.0-6.0) H 08/03/17 06:30 Eos % (Auto) 6.3 % (1.5-5.0) H 08/03/17 06:30 Baso % (Auto) 0.5 % (0.0-3.0) 08/03/17 06:30 Gran # 3.47 (1.4-6.5) 08/03/17 06:30 Lymph # (Auto) 1.9 (1.2-3.4) 08/03/17 06:30 [place] # (Auto) 0.6 (0.1-0.6) 08/03/17 06:30 Eos # (Auto) 0.4 (0.0-0.7) 08/03/17 06:30 Baso # (Auto) 0.03 K/mm3 (0.0-2.0) 08/03/17 06:30 ESR 100 mm/hr (0.0-20.0) H 08/01/17 11:00 PT 12.4 SECONDS (9.4-12.5) 08/01/17 10:56 INR 1.08 (0.93-1.08) 08/01/17 10:56 APTT 31.8 Seconds (25.1-36.5) 08/01/17 10:56 pO2 30 mm/Hg (30-55) 08/01/17 15:35 VBG pH 7.39 (7.32-7.43) 08/01/17 15:35 VBG pCO2 56.0 (40-60) 08/01/17 15:35 VBG HCO3 33.9 mmol/l (21-28) H 08/01/17 15:35 VBG Total CO2 35.6 mmol.L (22-28) H 08/01/17 15:35 VBG O2 Sat (Calc) 64.5 % (40-65) 08/01/17 15:35 VBG Base Excess 7.1 mmol/L (0.0-2.0) H 08/01/17 15:35 VBG Potassium 4.8 mmol/L (3.6-5.2) 08/01/17 15:35 Sodium 140.0 mmol/L (132-148) 08/01/17 15:35 Chloride 104.0 mmol/L (98-107) 08/01/17 15:35 Glucose 168 mg/dl (65-105) H 08/01/17 15:35 Lactate 2.0 mmol/L (0.7-2.1) 08/01/17 15:35 FiO2 21.0 % 08/01/17 15:35 Sodium 143 mmol/L (132-148) 08/03/17 06:30 Potassium 4.1 mmol/L (3.6-5.0) 08/03/17 06:30 Chloride 106 mmol/L (98-107) 08/03/17 06:30 Carbon Dioxide 28 mmol/L (21-33) 08/03/17 06:30 Anion Gap 13 (10-20) 08/03/17 06:30 BUN 27 mg/dL (7-21) H 08/03/17 06:30 Creatinine 1.0 mg/dl (0.7-1.2) 08/03/17 06:30 Est GFR ( Amer) > 60 08/03/17 06:30 Est GFR (Non-Af Amer) 53 08/03/17 06:30 POC Glucose (mg/dL) 284 mg/dL (65-110) H 08/03/17 11:25 Random Glucose 161 mg/dL (70-110) H 08/03/17 06:30 Hemoglobin A1c 7.7 % (4.2-6.5) H 08/01/17 07:00 Calcium 8.5 mg/dL (8.4-10.5) 08/03/17 06:30 Total Bilirubin 0.3 mg/dL (0.2-1.3) 08/03/17 06:30 AST 38 U/L (14-36) H 08/03/17 06:30 ALT 28 U/L (7-56) 08/03/17 06:30 Alkaline Phosphatase 184 U/L (38-126) H D 08/03/17 06:30 C-React Prot High Sens 12.60 mg/L (1.00-3.00) H 08/01/17 07:00 Total Protein 6.6 g/dL (5.8-8.3) 08/03/17 06:30 Albumin 3.3 g/dL (3.0-4.8) 08/03/17 06:30 Globulin 3.3 gm/dL 08/03/17 06:30 Albumin/Globulin Ratio 1.0 (1.1-1.8) L 08/03/17 06:30 Triglycerides 103 mg/dL (35-160) 08/01/17 07:00 Cholesterol 118 mg/dL (130-200) L 08/01/17 07:00 LDL Cholesterol Direct 47 mg/dL (0-129) 08/01/17 07:00 HDL Cholesterol 40 mg/dL (29-60) 08/01/17 07:00 Free T4 1.32 ng/dL (0.78-2.19) 08/01/17 07:00 TSH 3rd Generation 3.60 mIU/mL (0.46-4.68) 08/01/17 07:00 Venous Blood Potassium 4.8 mmol/L (3.6-5.2) 08/01/17 15:35 Attending/Attestation - Attestation I have personally seen and examined this patient.: Yes I have fully participated in the care of the patient.: Yes I have reviewed all pertinent clinical information, including history, physical exam and plan: Yes Notes (Text): 08/03/17 16:19 attending note; Patient seen and examined with resident. Patient is a 81-year-old female with asked medical history of hypertension, Diabetes, insomnia, neuropathy, amputation of L great toe and R second toe was sent into ED from wound care center by wireworker for an infected right heel ulcer. patient had recent culture positive for MRSA. Treated with clindamycin as outpatient. Started on IV Zyvox and Azactam. Patient is allergic to penicillin. x-ray of the ankle is negative. MRI of the right foot is negative for osteomyelitis. diabetes; continue sliding scale.continue low-dose Levemir. hypertension; continue Cozaar and metoprolol. case discussed with podiatry and ID in detail. TCU evaluation requested. upon discharge patient will follow up with PMD . 08/03/17 16:21
[2017-08-03] MEDS ORDERED: Insulin Detemir 100 units/ml Vial (Levemir) SC SCH (16:20)
[2017-08-03 18:08] VITALS: O2SAT 97
--- NOTE | 2017-08-03 20:55 | PN ---
DATE: 08/03/2017 SUBJECTIVE: The patient is in bed, in no acute distress, nontoxic. No fevers and chills. PHYSICAL EXAMINATION: VITAL SIGNS: Temperature is 98, blood pressure is 100/50, respiratory rate of 20, heart rate of 94. HEENT: Unremarkable. NECK: Supple. LUNGS: Have decreased breath sounds. HEART: Normal S1 and S2. ABDOMEN: Soft, nontender. LABORATORY DATA: Reveals a white count of 6.4, hemoglobin of 10, platelets of 192. Chemistries reveals a BUN of 27, creatinine of 1. Microbiology reveals the abdominal culture is positive for MRSA that was from 08/01/2017, and there is staph aureus from the right foot and sensitivity of that is still pending. Review of orders reveals the patient to be on aztreonam and Zyvox. ASSESSMENT AND PLAN: This is a 81-year-old female who was seen early this morning in room 368, bed 1. Awake and alert, with right heel ulcer with staph aureus, and the patient is diabetic, hypertensive, osteomyelitis with an MRI which is negative for bones. The patient for a possible transfer to transitional care. Of note, the MRI is negative. We will follow with you. Case discussed with primary medical doctor. Clay Oneill MD
[2017-08-04] MEDS: Nystatin 100,000 Units/gm Topical Pow(15 gm) TOP SCH ×4 (01:51→13:10)
[2017-08-04] MEDS: Pantoprazole 40 mg EC Tab PO SCH (05:35)
[2017-08-04] MEDS: Aztreonam 1 Gm in NS 100mL 100 ML IVPB SCH (05:35)
[2017-08-04 06:43] LABS: BASO # 0.02 K/mm3 (0.0-2.0); BASO % 0.3 % (0.0-3.0); EOS # 0.4 (0.0-0.7); EOS % 6.8 % (1.5-5.0); GRAN # 2.7 (1.4-6.5); GRAN % 47.3 % (50.0-68.0); HEMOGLOBIN 10.1 g/dL (12.0-16.0); LYMPH # 2.1 (1.2-3.4); LYMPH % 36.2 % (22.0-35.0); MEAN CORPUSCULAR HEMOGLOBIN 30.5 pg (25.0-35.0); MEAN CORPUSCULAR HGB CONC 32.5 g/dl (31.0-37.0); MEAN PLATELET VOLUME 12.2 fl (7.0-11.0); MONO # 0.5 (0.1-0.6); MONO % 9.4 % (1.0-6.0); RBC 3.31 10^6/uL (3.5-6.1); RED CELL DISTRIBUTION WIDTH 13.2 % (11.5-14.5); WHITE BLOOD COUNT 5.7 10^3/ul (4.5-11.0)
[2017-08-04 06:51] LABS: ALB/GLOB RATIO 0.9 (1.1-1.8); ALT/SGPT 25 U/L (7-56); AST/SGOT 35 U/L (14-36); BLOOD UREA NITROGEN 25 mg/dL (7-21); CALCIUM 8.2 mg/dL (8.4-10.5); GFR AFRICAN-AMERICAN > 60; GFR NON-AFRICAN AMERICAN 53
[2017-08-04] MEDS: Levothyroxine 75 MCG TAB PO SCH (07:55)
[2017-08-04 08:03] VITALS: PULSE 76; TEMP 97.7
[2017-08-04] MEDS: Linezolid 600 mg in D5W 300 ml 600 MG/300 ML BAG IVPB SCH (09:06)
[2017-08-04] MEDS: Insulin Lispro (humaLOG) LOW Coverage SC SCH ×2 (09:06→13:09)
[2017-08-04] MEDS: CADEXOMER IODINE 0.9% GEL 10G TOP SCH (09:07)
[2017-08-04 09:14] VITALS: BP 154/78
--- NOTE | 2017-08-04 14:08 | CP.PCM.PN ---
Subjective - Date & Time of Evaluation Date of Evaluation: 08/04/17 Time of Evaluation: 11:01 - Subjective Subjective: Podiatry Progress Note- Dr. Patterson 81 year old female seen and evaluated at bedside this morning with attending Dr. Patterson regarding right posterior heel ulceration and left heel deep tissue injury. Pt resting comfortably in bed with multipodus boots on at time of visit. Denies any pain to her lower extremities. Denies F/C/N/V/CP/SOB. Has no new pedal complaints today Objective - Vital Signs/Intake and Output Vital Signs (last 24 hours): Temp Pulse Resp BP Pulse Ox 97.7 F 76 20 154/78 H 97 08/04/17 08:03 08/04/17 08:03 08/04/17 08:03 08/04/17 09:05 08/04/17 08:03 Intake and Output: 08/04/17 08/04/17 06:59 18:59 Intake Total 420 Balance 420 - Medications Medications: Current Medications Acetaminophen (Tylenol 325mg Tab) 650 mg PO Q4 PRN PRN Reason: Pain, Mild (1-3) Aspirin (Ecotrin) 81 mg PO DAILY [facility] Last Admin: 08/04/17 09:05 Dose: 81 mg Atorvastatin Calcium (Lipitor) 20 mg PO HS [facility] Last Admin: 08/03/17 21:59 Dose: 20 mg Cadexomer Iodine (Iodosorb) 0 gm TOP DAILY [facility] Last Admin: 08/04/17 09:07 Dose: Not Given Heparin Sodium (Porcine) (Heparin) 5,000 units SC Q8 [facility] PRN Reason: Protocol Last Admin: 08/04/17 13:10 Dose: 5,000 units Insulin Detemir (Levemir) 10 unit SC DAILY [facility] Last Admin: 08/04/17 09:05 Dose: 10 unit Insulin Human Lispro (Humalog Low) 0 units SC ACHS [facility] PRN Reason: Protocol Last Admin: 08/04/17 13:09 Dose: 3 units Levothyroxine Sodium (Synthroid) 75 mcg PO ACB [facility] Last Admin: 08/04/17 07:55 Dose: 75 mcg Linezolid (Zyvox) 600 mg PO BID [facility] PRN Reason: Protocol Stop: 08/09/17 18:01 Losartan Potassium (Cozaar) 25 mg PO DAILY [facility] Last Admin: 08/04/17 09:05 Dose: 25 mg Metoprolol Succinate (Toprol Xl) 25 mg PO BRK [facility] Last Admin: 08/03/17 07:55 Dose: 25 mg Naproxen (Anaprox) 275 mg PO BID PRN PRN Reason: Pain, moderate (4-7) Last Admin: 08/02/17 21:56 Dose: 275 mg Nystatin (Nystop Topical Powder) 0 gm TOP Q4H [facility] Last Admin: 08/04/17 13:10 Dose: 1 applic Pantoprazole Sodium (Protonix Ec Tab) 40 mg PO 0600 [facility] Last Admin: 08/04/17 05:35 Dose: 40 mg Quetiapine Fumarate (Seroquel) 25 mg PO HS [facility] PRN Reason: Protocol Last Admin: 08/03/17 22:00 Dose: 25 mg - Labs Labs: 08/04/17 05:30 08/04/17 05:45 PT 12.4 SECONDS (9.4-12.5) 08/01/17 10:56 INR 1.08 (0.93-1.08) 08/01/17 10:56 APTT 31.8 Seconds (25.1-36.5) 08/01/17 10:56 - Constitutional Appears: Well, Non-toxic, No Acute Distress - Extremities Exam Extremities Exam: absent: Calf Tenderness Additional comments: VASC: DP and PT pulses nonpalpable B/L. CFT delayed but present. Temperature gradient warm to warm. Bilateral non-pitting lower extremity edema noted. NEURO: Gross sensation absent. DERM: Full thickness ulceration located to posteromedial aspect of right heel measuring approximately 2cm x 2cm x 0.2 cm - wound base is a mixture of granular and fibrotic tissue. Mild serosanguinous drainage noted on inner dressing. Mild malodor present. Roselyn wound exhibits skin erythema >2cm in margins. No purulence, no fluctuance, no undermining, no tunneling. Deep tissue injury noted to plantar posterior aspect of left heel with black and blue discoloration. Distal to DTI there is a healed pressure ulceration with overlying hyperkeratotic skin present. Central to ulceration is a small open fissure which exhibits minimal sanguinous drainage on inner dressing. No purulence, no fluctuance, no malodor. ORTHO: Multiple amputated digits. No pain on palpation bilateral lower extremity. - Neurological Exam Neurological Exam: Alert, Awake, Oriented x3 - Psychiatric Exam Psychiatric exam: Normal Affect, Normal Mood Assessment and Plan - Assessment and Plan (Free Text) Assessment: 81 year old female with 1) right posterior heel ulceration and 2) left plantar heel deep tissue injury with skin fissure - likely secondary to new diabetic shoes Plan: Patient seen and evaluated at bedside with attending Dr. Patterson X-rays (-) for any signs of osteomyelitis R foot MRI negative for osteomyelitis, no signs of bone marrow edema, no acute findings Wound cx taken of right heel ulcer pending Bilateral heel wounds cleansed with saline R heel wound dressed with iodosorb ABD, DSD; L heel dressed with ABD, DSD Continue heel offloading boots at all times while in bed Pt may be full weight bearing, with regular surgical shoe on R foot, Darco heel relief shoe on L foot (pt has been dispensed heel relief shoe on previous visit ) Wounds likely due to new shoegear - pt advised to discontinue upon discharge Continue IV abx per ID - await cx for tailored abx therapy Podiatry will continue to follow patient while in house
--- NOTE | 2017-08-04 15:17 | PN ---
DATE: 08/04/2017 SUBJECTIVE: The patient is in bed, in no acute distress, was seen in [facility], bed 1. No fevers. No chills. PHYSICAL EXAMINATION: VITAL SIGNS: Temperature is 98, blood pressure is 162/80, respiratory rate of 20, heart rate of 94. HEENT: Examination of HEENT is unremarkable. NECK: Supple. LUNGS: Have decreased breath sounds. HEART: Normal S1 and S2. ABDOMEN: Soft, nontender. No rebound. No guarding. No masses. LABORATORY DATA: Laboratory examination reveals a white count of 5.7, hemoglobin of 10, platelets of 184. Coagulation is noted and chemistries reveals a BUN of 25, creatinine of 1 and microbiology reveals right foot with MRSA. Sensitive to linezolid. Vancomycin CHIKA is less than 0.5. Review of the orders reveals the patient is on IV Zyvox and the Azactam. ASSESSMENT AND PLAN: A 81-year-old female who was seen earlier today in [facility], bed 1. Awake and alert with a right heel ulcer with methicillin-resistant Staphylococcus aureus, diabetic, hypertensive with a negative MRI for osteomyelitis. We will change to p.o. Zyvox. Discontinue the aztreonam. Local wound care. We will follow with you. Of note that the patient was started on Seroquel by . Concerned about drug to drug interaction with the Zyvox. We will follow closely. This patient is allergic to penicillin and the methicillin-resistant Staphylococcus aureus is resistant to doxycycline. Limited options. Maybe able to use vancomycin. The patient has GFR of 53. We will complete a short course of Zyvox. lCay Oneill MD
[2017-08-04] MEDS ORDERED: Insulin Detemir 100 units/ml Vial (Levemir) SC SCH (16:35)
--- NOTE | 2017-08-05 01:27 | CON ---
DATE: 08/02/2017 The patient is a 81-year-old white female, admitted presently to treatment of an infected right heel ulcer. 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 She is under the care of Dr. Patterson for a nonhealing ulcer at the heels of her left foot. I had seen the patient in this past March. Her life was reviewed at that time and is reviewed presently. She is a . She has five children, one of whom of a cerebrovascular incident. She had been started on Seroquel for sleep initially by her PMD, Dr. Yany Rivers, continued by Dr. Guerrero (both of whom have retired) and continued on this by her present PMD, Dr. Fernandez). She is a [employer] [place], high school graduate. She is living at the daughter because of her ambulatory and medical condition, but seems to be in good spirits presently, alert, oriented, cooperative, had good recall of our prior interaction and seems quite competent and likable. A CBC and differential today shows a hemoglobin 10.1, hematocrit 31.1. A biochemical profile shows elevated BUN of 25 and elevated blood glucose of 292. Blood pressure 154/78, temperature 97.7, respiratory rate 20, pulse rate 76. The patient can stay on her present medication regimen, would likely benefit from transfer to the TCU. I have no specific new recommendations for this woman who has chronic sleep difficulties. Isac Osuna MD/ PhD
== END 2017-08-04 16:33 | DRG 638 ==
LOC: ED 10:11 → ERH 12:26 → 3RNO 13:11
PROVIDERS: ADMIT Internal Medicine; ATTEND Internal Medicine
DX: E11.621 Type 2 diabetes mellitus with foot ulcer (principal); L97.419 Non-pressure chronic ulcer of right heel and midfoot with unspecified severity; L97.429 Non-pressure chronic ulcer of left heel and midfoot with unspecified severity; L03.115 Cellulitis of right lower limb; B95.62 Methicillin resistant Staphylococcus aureus infection as the cause of diseases classified elsewhere; E11.40 Type 2 diabetes mellitus with diabetic neuropathy, unspecified; E11.51 Type 2 diabetes mellitus with diabetic peripheral angiopathy without gangrene; E11.22 Type 2 diabetes mellitus with diabetic chronic kidney disease; I12.9 Hypertensive chronic kidney disease with stage 1 through stage 4 chronic kidney disease, or unspecified chronic kidney disease; E11.649 Type 2 diabetes mellitus with hypoglycemia without coma; I25.10 Atherosclerotic heart disease of native coronary artery without angina pectoris; N18.9 Chronic kidney disease, unspecified; B37.2 Candidiasis of skin and nail; E03.9 Hypothyroidism, unspecified; G47.00 Insomnia, unspecified; M19.90 Unspecified osteoarthritis, unspecified site; E66.9 Obesity, unspecified; Z68.36 Body mass index [BMI] 36.0-36.9, adult; Z89.412 Acquired absence of left great toe; Z89.421 Acquired absence of other right toe(s); Z88.0 Allergy status to penicillin

== ENCOUNTER 2017-08-04 16:33 | Inpatient (IN) | payer OTHER ==
--- NOTE | 2017-08-04 17:24 | CP.PCM.DIS ---
Provider - Provider Date of Admission: 08/04/17 16:33 Attending physician: Ricardo Mancuso MD Time Spent in preparation of Discharge (in minutes): 35 Hospital Course - Hospital Course Hospital Course: attending note; Patient seen and examined with resident. 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 patient had recent culture positive for MRSA. Treated with clindamycin as outpatient. currently on IV Zyvox and Azactam. Patient is allergic to penicillin. x-ray of the ankle is negative. MRI of the right foot is negative for osteomyelitis. diabetes; continue sliding scale.continue low-dose Levemir. hypertension; continue Cozaar and metoprolol. case discussed with podiatry and ID in detail. patient will be transferred to TCU for physical therapy and gait training. Wound Care evaluation by podiatry appreciated. upon discharge patient will follow up with PMD . Diagnosis; Right heel ulcer Diabetes MRSA infection Hypertension Depression Discharge Exam - Head Exam Head Exam: NORMAL INSPECTION - ENT Exam ENT Exam: Mucous Membranes Moist - Respiratory Exam Respiratory Exam: NORMAL BREATHING PATTERN - Cardiovascular Exam Cardiovascular Exam: REGULAR RHYTHM - GI/Abdominal Exam GI & Abdominal Exam: Normal Bowel Sounds. absent: Rebound, Rigid - Extremities Exam Additional comments: R heel in dressing left heel in dressing. pulse intact - Neurological Exam Neurological exam: Alert, Oriented x3 - Psychiatric Exam Psychiatric exam: Normal Affect - Skin Skin Exam: Normal Color Discharge Plan - Follow Up Plan Condition: GOOD Disposition: HOME/ ROUTINE
[2017-08-04] MEDS ORDERED: Insulin Lispro (humaLOG) LOW Coverage SC SCH ×2 (17:57→22:00)
[2017-08-04] MEDS: Nystatin 100,000 Units/gm Topical Pow(15 gm) TOP SCH ×2 (18:19→22:19)
[2017-08-04] MEDS: Insulin Detemir 100 units/ml Vial (Levemir) SC SCH (22:17)
[2017-08-04] MEDS: Insulin Lispro (humaLOG) LOW Coverage SC SCH (22:39)
[2017-08-04] MEDS ORDERED: Pneumococcal 23-Valent Vaccine IM ONE (23:30)
[2017-08-05] MEDS: Levothyroxine 75 MCG TAB PO SCH (06:42)
[2017-08-05] MEDS: Pantoprazole 40 mg EC Tab PO SCH (06:42)
[2017-08-05] MEDS: Insulin Lispro (humaLOG) LOW Coverage SC SCH ×4 (06:43→21:43)
[2017-08-05] MEDS: Multivitamin Therapeutic Tab PO SCH (10:00)
[2017-08-05] MEDS: Cholecalciferol 1,000 INTLU TAB PO SCH (10:01)
[2017-08-05] MEDS: Nystatin 100,000 Units/gm Topical Pow(15 gm) TOP SCH ×5 (10:05→21:44)
[2017-08-05] MEDS: Metoprolol Succinate 25 mg XL Tab PO SCH (10:06)
--- NOTE | 2017-08-05 13:26 | CP.PCM.CON ---
History of Present Illness - History of Present Illness History of Present Illness: 81 year old female with PMH of obesity with BMI 36, osteoarthritis, HTN, DM, hypothyroidism, S/P left toe amputation, S/P right hip surgery was [place] [facility] [place] of new right heel ulcer which was infected. Wound cx grew MRSA and MRI of the foot did not reveal osteomyelitis. She has been doing better and is now transferred to [facility] for continued medical therapy and physical rehab. Infectious diseases consult is requested to continue her antibiotic therapy. She is comfortable on a chair, less pain in the right foot, no nausea or vomiting, no chest pain, no abdominal pain, no headache or dizziness, no SOB, no cough or colds, no diarrhea, no dysuria. Review of Systems - Review of Systems All systems: reviewed and no additional remarkable complaints except Past Patient History - Infectious Disease Hx of Infectious Diseases: None - Tetanus Immunizations Tetanus Immunization: Unknown - Past Medical History & Family History Past Medical History?: Yes - Past Social History Smoking Status: Never Smoked - CARDIAC Hx Cardiac Disorders: Yes Hx Hypertension: Yes - PULMONARY Hx Respiratory Disorders: No - NEUROLOGICAL Hx Neurological Disorder: No - HEENT Hx HEENT Problems: No - RENAL Hx Chronic Kidney Disease: No - ENDOCRINE/METABOLIC Hx Diabetes Mellitus Type 2: Yes Hx Hypothyroidism: Yes - HEMATOLOGICAL/ONCOLOGICAL Hx Blood Disorders: No - INTEGUMENTARY Hx Dermatological Problems: No - MUSCULOSKELETAL/RHEUMATOLOGICAL Hx Falls: Yes - GASTROINTESTINAL Hx Gastrointestinal Disorders: No - GENITOURINARY/GYNECOLOGICAL Hx Genitourinary Disorders: Yes (URINARY FREQUENCY,URGENCY) Hx Reproductive Disorders: No - PSYCHIATRIC Hx Psychophysiologic Disorder: Yes Hx Depression: Yes Hx Substance Use: No - SURGICAL HISTORY Hx Amputation: Yes (LEFT GREAT TOE, RIGHT 2ND TOE) Hx Musculoskeletal Surgery: Yes - ANESTHESIA Hx Anesthesia: Yes Hx Anesthesia Reactions: (not known) Hx Malignant Hyperthermia: No Meds Allergies/Adverse Reactions: Allergies Allergy/AdvReac Type Severity Reaction Status Date / Time Penicillins Allergy ITCHING Verified 08/01/17 22:35 - Medications Medications: Current Medications Acetaminophen (Tylenol 325mg Tab) 650 mg PO Q4H PRN; Protocol PRN Reason: Pain, Mild (1-3) Aspirin (Ecotrin) 81 mg PO 0800 MAAME PRN Reason: Protocol Last Admin: 08/05/17 10:00 Dose: 81 mg Atorvastatin Calcium (Lipitor) 20 mg PO DIN MAAME PRN Reason: Protocol Cadexomer Iodine (Iodosorb) 0 gm TOP DAILY MAAME PRN Reason: Protocol Calcium Carbonate (Caltrate) 600 mg PO DAILY MAAME PRN Reason: Protocol Last Admin: 08/05/17 09:59 Dose: 600 mg Cholecalciferol (Vitamin D) 1,000 intlu PO DAILY MAAME PRN Reason: Protocol Last Admin: 08/05/17 10:01 Dose: 1,000 intlu Heparin Sodium (Porcine) (Heparin) 5,000 units SC Q8 MAAME PRN Reason: Protocol Last Admin: 08/05/17 06:45 Dose: 5,000 units Insulin Detemir (Levemir) 20 unit SC HS MAAME PRN Reason: Protocol Last Admin: 08/04/17 22:17 Dose: 20 unit Insulin Human Lispro (Humalog Low) 0 units SC ACHS MAAME PRN Reason: Protocol Last Admin: 08/05/17 06:43 Dose: 2 units Levothyroxine Sodium (Synthroid) 75 mcg PO 0600 MAAME PRN Reason: Protocol Last Admin: 08/05/17 06:42 Dose: 75 mcg Linezolid (Zyvox) 600 mg PO BID MAAME PRN Reason: Protocol Stop: 08/10/17 10:01 Last Admin: 08/05/17 10:01 Dose: 600 mg Losartan Potassium (Cozaar) 25 mg PO DAILY MAAME PRN Reason: Protocol Last Admin: 08/05/17 10:04 Dose: Not Given Metoprolol Succinate (Toprol Xl) 25 mg PO BRK MAAME PRN Reason: Protocol Last Admin: 08/05/17 10:06 Dose: Not Given Multivitamins (Thera Tab) 1 tab PO 0800 MAAME PRN Reason: Protocol Last Admin: 08/05/17 10:00 Dose: 1 tab Nystatin (Nystop Topical Powder) 0 gm TOP Q4H MAAME PRN Reason: Protocol Last Admin: 08/05/17 10:05 Dose: 1 applic Pantoprazole Sodium (Protonix Ec Tab) 40 mg PO 0600 MAAME PRN Reason: Protocol Last Admin: 08/05/17 06:42 Dose: 40 mg Quetiapine Fumarate (Seroquel) 25 mg PO HS MAAME PRN Reason: Protocol Last Admin: 08/04/17 22:19 Dose: 25 mg Physical Exam - Constitutional Appears: Non-toxic, No Acute Distress - Head Exam Head Exam: NORMAL INSPECTION - ENT Exam ENT Exam: Mucous Membranes Moist - Neck Exam Neck exam: Negative for: Lymphadenopathy, Meningismus - Respiratory Exam Respiratory Exam: absent: Rales, Rhonchi - Cardiovascular Exam Cardiovascular Exam: +S1, +S2 - GI/Abdominal Exam GI & Abdominal Exam: Soft. absent: Tenderness - Extremities Exam Additional comments: both feet with dressings in place Results - Vital Signs Recent Vital Signs: Last Vital Signs Temp 98.2 F 08/04/17 23:21 Pulse 88 08/04/17 23:21 Resp 18 08/04/17 23:21 BP 103/60 08/05/17 10:04 Pulse Ox 100 08/04/17 17:00 - Labs Labs: Laboratory Results - last 24 hr 08/05/17 08/05/17 08/05/17 02:02 06:39 11:10 POC Glucose (mg/dL) 236 H 201 H 239 H Assessment & Plan - Assessment and Plan (Free Text) Plan: Assessment right heel ulcer, infected with MRSA with no evidence of osteomyelitis on MRI peripheral arterial disease history of left heel infected ulcer with cellulitis without evidence of osteomyelitis on MRI history of 2nd right toe and metatarsal head osteomyelitis S/P surgery chronic renal failure obesity with BMI 38 osteoarthritis HTN DM hypothyroidism S/P left toe amputation S/P right hip surgery Plan continue Zyvox and will monitor the patient clinically
--- NOTE | 2017-08-05 17:36 | CP.PCM.HP ---
<GlendaLio - Last Filed: 08/05/17 17:44> History of Present Illness - History of Present Illness History of Present Illness: PGY1 Medicine H+P for Dr. Mancuso 81F with PMHx CAD, Diabetes, PAD, neuropathy, past amputation of L great toe and R second toes, who was originally sent into ED from wound care center by coppersmith helper for an infected right heel ulcer. Patient was admitted and treat for her right heel wound. Wound cultures showed MRSA sensitive to clindamycin, which patient has finished a 1- week course of that. Home meds were restarted. Pt seen/evaluated by podiatry with recs for wound care, foot care, full weight bearing with regular surgical shoe for right foot and Darco heel relief shoe on Left foot. Pt seen/evalauted by ID with recs for Abx therapy. X-ray & MRI of right heel were negative for osteomyelitis. Patient was also treated for fungal skin infection under breasts. Physical Therapy saw patient and recommended for TCU placement due to deconditioning. Patient reports difficulty with ambulation but no pain. Patient has no complaints today. Denies fevers, chills, nausea, vomiting, chest pain, shortness of breath, palpitations, abdominal pain, dysuria, lightheadedness, dizziness. PMD: [facility] Podiatry: Leonardo PMHx: CAD (no stents), HTN, DM2, Hypothyroidism, Hx falls, Insomnia PSH: Amputation of L great toe and R second toe, Gamma marisol (ORIF) R hip, Thyroid removal for nodule, Carpal tunnel surgery R wrist FH: DM, HTN SH: Ambulating with walker. Live with Daughter Kika , who sought her med Denies tobacco, social alcohol and denies illicit drug use Allergies : Penicillins Present on Admission - Present on Admission Any Indicators Present on Admission: No Review of Systems - Review of Systems All systems: reviewed and no additional remarkable complaints except - Constitutional Constitutional: As Per HPI - EENT Eyes: As Per HPI Ears: As Per HPI Nose/Mouth/Throat: As Per HPI - Breasts Breasts: As Per HPI - Cardiovascular Cardiovascular: As Per HPI - Respiratory Respiratory: As Per HPI - Gastrointestinal Gastrointestinal: As Per HPI - Genitourinary Genitourinary: As Per HPI - Menstruation Menstruation: As Per HPI - Musculoskeletal Musculoskeletal: As Per HPI - Integumentary Integumentary: As Per HPI - Neurological Neurological: As Per HPI - Psychiatric Psychiatric: As Per HPI - Endocrine Endocrine: As Per HPI - Hematologic/Lymphatic Hematologic: As Per HPI Past Patient History - Infectious Disease Hx of Infectious Diseases: None - Tetanus Immunizations Tetanus Immunization: Unknown - Past Medical History & Family History Past Medical History?: Yes - Past Social History Smoking Status: Never Smoked - CARDIAC Hx Cardiac Disorders: Yes Hx Hypertension: Yes - PULMONARY Hx Respiratory Disorders: No - NEUROLOGICAL Hx Neurological Disorder: No - HEENT Hx HEENT Problems: No - RENAL Hx Chronic Kidney Disease: No - ENDOCRINE/METABOLIC Hx Diabetes Mellitus Type 2: Yes Hx Hypothyroidism: Yes - HEMATOLOGICAL/ONCOLOGICAL Hx Blood Disorders: No - INTEGUMENTARY Hx Dermatological Problems: No - MUSCULOSKELETAL/RHEUMATOLOGICAL Hx Falls: Yes - GASTROINTESTINAL Hx Gastrointestinal Disorders: No - GENITOURINARY/GYNECOLOGICAL Hx Genitourinary Disorders: Yes (URINARY FREQUENCY,URGENCY) Hx Reproductive Disorders: No - PSYCHIATRIC Hx Psychophysiologic Disorder: Yes Hx Depression: Yes Hx Substance Use: No - SURGICAL HISTORY Hx Amputation: Yes (LEFT GREAT TOE, RIGHT 2ND TOE) Hx Musculoskeletal Surgery: Yes - ANESTHESIA Hx Anesthesia: Yes Hx Anesthesia Reactions: (not known) Hx Malignant Hyperthermia: No Meds Allergies/Adverse Reactions: Allergies Allergy/AdvReac Type Severity Reaction Status Date / Time Penicillins Allergy ITCHING Verified 08/01/17 22:35 Physical Exam - Constitutional Appears: Non-toxic, No Acute Distress - Head Exam Head Exam: ATRAUMATIC, NORMOCEPHALIC - Eye Exam Eye Exam: EOMI, Normal appearance - ENT Exam ENT Exam: Mucous Membranes Moist - Neck Exam Neck exam: Negative for: Lymphadenopathy - Respiratory Exam Respiratory Exam: Clear to Auscultation Bilateral, NORMAL BREATHING PATTERN. absent: Accessory Muscle Use, Rales, Rhonchi, Wheezes, Respiratory Distress - Cardiovascular Exam Cardiovascular Exam: REGULAR RHYTHM, +S1, +S2 - GI/Abdominal Exam GI & Abdominal Exam: Normal Bowel Sounds, Soft. absent: Distended, Firm, Guarding, Rigid, Tenderness - Extremities Exam Extremities exam: Negative for: calf tenderness, pedal edema Additional comments: Dressings on both feet in place. - Neurological Exam Neurological exam: Alert, CN II-XII Intact, Oriented x3 - Psychiatric Exam Psychiatric exam: Normal Affect, Normal Mood - Skin Skin Exam: Dry, Warm Results - Vital Signs Recent Vital Signs: Last Vital Signs Temp 98.3 F 08/05/17 16:30 Pulse 84 08/05/17 16:30 Resp 18 08/05/17 16:30 BP 123/55 L 08/05/17 16:30 Pulse Ox 98 08/05/17 16:30 - Labs Labs: Laboratory Results - last 24 hr 08/05/17 08/05/17 08/05/17 02:02 06:39 11:10 POC Glucose (mg/dL) 236 H 201 H 239 H Assessment & Plan - Assessment and Plan (Free Text) Assessment: Elizabeth Cheng, 81F, with PMHx CAD, Diabetes, PAD, neuropathy, past amputation of L great toe and R second toes, was sent into ED from wound care center by coppersmith helper for an infected right heel ulcer failed outpatient clindamycin and R heel 1x1 necrosis. Treated with IV antibiotics and transferred to TCU for rehab. 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 Garcia - Podiatry consulted, Dr. Patterson - Linezolid 600mg PO BID (first dose 08/05, last dose 08/10) - Multipodus Boot - Dressings per podiatry Fungal Rash - Nystatin Powder Hx CAD/HTN - ASA 81 mg PO daily - Losartan 25mg PO daily - Metoprolol Succ. 25mg PO BRK Diabetes - Levemir 20 units SC HS - ISS - low Insomia - Psych consulted, Dr. Osuna - quetiapine 25 PO HS Hypothyroidism - synthroid 75 mcg PO daily Prophylactic Care - Protonix - Lovenox 40mg SC daily Case discussed with Dr. Jamee Vaca Glenda PGY1 <Ricardo Mancuso - Last Filed: 08/05/17 18:01> Results - Vital Signs Recent Vital Signs: Last Vital Signs Temp 98.3 F 08/05/17 16:30 Pulse 84 08/05/17 16:30 Resp 18 08/05/17 16:30 BP 123/55 L 08/05/17 16:30 Pulse Ox 98 08/05/17 16:30 - Labs Labs: Laboratory Results - last 24 hr 08/05/17 08/05/17 08/05/17 02:02 06:39 11:10 POC Glucose (mg/dL) 236 H 201 H 239 H Attending/Attestation - Attestation I have personally seen and examined this patient.: Yes I have fully participated in the care of the patient.: Yes I have reviewed all pertinent clinical information: Yes Notes (Text): 08/05/17 18:00 attending note; Patient seen and examined with resident in TCU. 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 patient had recent culture positive for MRSA. Currently on by mouth Zyvox. Patient is allergic to penicillin. x-ray of the ankle is negative. MRI of the right foot is negative for osteomyelitis. Continue offloading boot. diabetes; continue sliding scale.continue low-dose Levemir. Adjust dose as needed. hypertension; continue Cozaar and metoprolol. upon discharge patient will follow up with PMD .
[2017-08-05] MEDS: Insulin Detemir 100 units/ml Vial (Levemir) SC SCH (21:43)
[2017-08-06] MEDS: Enoxaparin 40 mg Syringe SC SCH (05:32)
[2017-08-06] MEDS: Pantoprazole 40 mg EC Tab PO SCH (05:33)
[2017-08-06] MEDS: Levothyroxine 75 MCG TAB PO SCH (05:33)
[2017-08-06] MEDS: Nystatin 100,000 Units/gm Topical Pow(15 gm) TOP SCH ×6 (05:39→22:37)
[2017-08-06] MEDS: Insulin Lispro (humaLOG) LOW Coverage SC SCH ×2 (07:24→12:33)
[2017-08-06] MEDS: Cholecalciferol 1,000 INTLU TAB PO SCH (09:15)
[2017-08-06] MEDS: Multivitamin Therapeutic Tab PO SCH (09:15)
[2017-08-06] MEDS: Metoprolol Succinate 25 mg XL Tab PO SCH (09:15)
[2017-08-06] MEDS ORDERED: Enoxaparin 40 mg Syringe SC SCH (10:00)
--- NOTE | 2017-08-06 10:02 | CP.PCM.PN ---
<Kirstie Mejia - Last Filed: 08/06/17 09:59> Subjective - Date & Time of Evaluation Date of Evaluation: 08/06/17 Time of Evaluation: 09:59 - Subjective Subjective: Podiatry Progress Note- Dr. Owusu 81 year old female seen and evaluated at bedside this morning with attending Dr. Owusu regarding right posterior heel ulceration and left heel deep tissue injury. Pt resting comfortably in her chair without multipodus boots. Denies any pain to her lower extremities. Denies F/C/N/V/CP/SOB. Has no new pedal complaints today Objective - Vital Signs/Intake and Output Vital Signs (last 24 hours): Temp Pulse Resp BP Pulse Ox 98.3 F 84 18 90/45 L 98 08/05/17 16:30 08/05/17 16:30 08/05/17 16:30 08/06/17 09:15 08/05/17 16:30 - Medications Medications: Current Medications Acetaminophen (Tylenol 325mg Tab) 650 mg PO Q4H PRN; Protocol PRN Reason: Pain, Mild (1-3) Aspirin (Ecotrin) 81 mg PO 0800 MAAME PRN Reason: Protocol Last Admin: 08/06/17 09:14 Dose: 81 mg Atorvastatin Calcium (Lipitor) 20 mg PO DIN MAAME PRN Reason: Protocol Last Admin: 08/05/17 17:35 Dose: 20 mg Cadexomer Iodine (Iodosorb) 0 gm TOP DAILY MAAME PRN Reason: Protocol Calcium Carbonate (Caltrate) 600 mg PO DAILY MAAME PRN Reason: Protocol Last Admin: 08/06/17 09:10 Dose: 600 mg Cholecalciferol (Vitamin D) 1,000 intlu PO DAILY MAAME PRN Reason: Protocol Last Admin: 08/06/17 09:15 Dose: 1,000 intlu Enoxaparin Sodium (Lovenox) 40 mg SC 0600 MAAME PRN Reason: Protocol Last Admin: 08/06/17 05:32 Dose: 40 mg Insulin Detemir (Levemir) 20 unit SC HS MAAME PRN Reason: Protocol Last Admin: 08/05/17 21:43 Dose: 20 unit Insulin Human Lispro (Humalog Low) 0 units SC ACHS MAAME PRN Reason: Protocol Last Admin: 08/06/17 07:24 Dose: 3 units Levothyroxine Sodium (Synthroid) 75 mcg PO 0600 MAAME PRN Reason: Protocol Last Admin: 08/06/17 05:33 Dose: 75 mcg Linezolid (Zyvox) 600 mg PO BID MAAME PRN Reason: Protocol Stop: 08/10/17 10:01 Last Admin: 08/06/17 09:16 Dose: 600 mg Losartan Potassium (Cozaar) 25 mg PO DAILY MAAME PRN Reason: Protocol Last Admin: 08/06/17 09:14 Dose: Not Given Metoprolol Succinate (Toprol Xl) 25 mg PO BRK MAAME PRN Reason: Protocol Last Admin: 08/06/17 09:15 Dose: Not Given Multivitamins (Thera Tab) 1 tab PO 0800 MAAME PRN Reason: Protocol Last Admin: 08/06/17 09:15 Dose: 1 tab Nystatin (Nystop Topical Powder) 0 gm TOP Q4H MAAME PRN Reason: Protocol Last Admin: 08/06/17 09:15 Dose: 1 applic Pantoprazole Sodium (Protonix Ec Tab) 40 mg PO 0600 MAAME PRN Reason: Protocol Last Admin: 08/06/17 05:33 Dose: 40 mg Quetiapine Fumarate (Seroquel) 25 mg PO HS MAAME PRN Reason: Protocol Last Admin: 08/05/17 21:44 Dose: 25 mg - Constitutional Appears: Well, Non-toxic, No Acute Distress - Extremities Exam Additional comments: lower extremity focused exam: VASC: DP and PT pulses non-palpable B/L. CFT delayed but present. Temperature gradient warm to warm. Bilateral non-pitting lower extremity edema noted. NEURO: Gross sensation absent. DERM: Full thickness ulceration located to posteromedial aspect of right heel measuring approximately 2 cm x 2 cm x 0.2 cm - wound base is a mixture of granular and fibrotic tissue. Mild serosanguinous drainage noted on inner dressing. Mild malodor present. Roselyn wound exhibits skin erythema >2cm in margins. No purulence, no fluctuance, no undermining, no tunneling. Deep tissue injury noted to plantar posterior aspect of left heel with black and blue discoloration. Distal to DTI there is a healed pressure ulceration with overlying hyperkeratotic skin present. Central to ulceration is a small open fissure which exhibits minimal sanguinous drainage on inner dressing. No purulence, no fluctuance, no malodor. ORTHO: Multiple amputated digits. No pain on palpation bilateral lower extremity. - Neurological Exam Neurological Exam: Alert, Awake, Oriented x3 - Psychiatric Exam Psychiatric exam: Normal Affect, Normal Mood Assessment and Plan - Assessment and Plan (Free Text) Assessment: 81 year old female with 1) right posterior heel ulceration and 2) left plantar heel deep tissue injury with skin fissure - likely secondary to new diabetic shoes Plan: Patient seen and evaluated at bedside with attending Dr. Patterson X-rays (-) for any signs of osteomyelitis R foot MRI negative for osteomyelitis, no signs of bone marrow edema, no acute findings Right foot cx-MRSA Bilateral heel wounds cleansed with saline R heel wound dressed with iodosorb ABD, DSD; L heel dressed with ABD, DSD, L leg dressed with optifoam Bactroban ordered, to be applied to left leg Continue heel offloading boots at all times while in bed Pt may be full weight bearing, with regular surgical shoe on R foot, Darco heel relief shoe on L foot (pt has been dispensed heel relief shoe on previous visit ) Wounds likely due to new shoegear - pt advised to discontinue upon discharge Continue IV abx per ID Podiatry will continue to follow patient while in house <Robby Owusu - Last Filed: 08/09/17 11:49> Objective - Vital Signs/Intake and Output Vital Signs (last 24 hours): Temp Pulse Resp BP Pulse Ox 98.7 F 80 18 92/41 L 96 08/09/17 11:27 08/09/17 11:27 08/09/17 11:27 08/09/17 11:27 08/09/17 11:27 - Medications Medications: Current Medications Acetaminophen (Tylenol 325mg Tab) 650 mg PO Q4H PRN; Protocol PRN Reason: Pain, Mild (1-3) Last Admin: 08/06/17 22:46 Dose: 650 mg Aspirin (Ecotrin) 81 mg PO 0800 MAAME PRN Reason: Protocol Last Admin: 08/09/17 08:50 Dose: 81 mg Atorvastatin Calcium (Lipitor) 20 mg PO DIN MAAME PRN Reason: Protocol Last Admin: 08/08/17 17:15 Dose: 20 mg Cadexomer Iodine (Iodosorb) 0 gm TOP DAILY MAAME PRN Reason: Protocol Last Admin: 08/08/17 10:08 Dose: 1 gm Calcium Carbonate (Caltrate) 600 mg PO DAILY MAAME PRN Reason: Protocol Last Admin: 08/09/17 10:34 Dose: 600 mg Cholecalciferol (Vitamin D) 1,000 intlu PO DAILY MAAME PRN Reason: Protocol Last Admin: 08/09/17 10:36 Dose: 1,000 intlu Collagenase (Santyl) 1 gm TOP DAILY MAAME Diphenhydramine HCl (Benadryl) 12.5 mg PO BID PRN PRN Reason: Itching / Pruritus Last Admin: 08/08/17 05:23 Dose: 12.5 mg Diphenhydramine HCl (Benadryl) 25 mg PO HS PRN PRN Reason: Insomnia Last Admin: 08/08/17 22:20 Dose: 25 mg Enoxaparin Sodium (Lovenox) 40 mg SC 0600 MAAME PRN Reason: Protocol Last Admin: 08/09/17 07:00 Dose: 40 mg Insulin Detemir (Levemir) 30 unit SC HS MAAME PRN Reason: Protocol Last Admin: 08/08/17 21:54 Dose: 30 unit Insulin Human Regular (Humulin R Med) 0 units SC ACHS MAAME PRN Reason: Protocol Last Admin: 08/09/17 07:00 Dose: 1 units Levothyroxine Sodium (Synthroid) 75 mcg PO 0600 MAAME PRN Reason: Protocol Last Admin: 08/09/17 07:01 Dose: 75 mcg Losartan Potassium (Cozaar) 25 mg PO DAILY MAAME PRN Reason: Protocol Last Admin: 08/08/17 10:45 Dose: 25 mg Metoprolol Succinate (Toprol Xl) 25 mg PO BRK MAAME PRN Reason: Protocol Last Admin: 08/09/17 08:51 Dose: 25 mg Multivitamins (Thera Tab) 1 tab PO 0800 MAAME PRN Reason: Protocol Last Admin: 08/09/17 08:51 Dose: 1 tab Mupirocin (Bactroban Ointment) 0 gm TOP DAILY MAAME Last Admin: 08/08/17 10:08 Dose: 1 oin Nystatin (Nystop Topical Powder) 0 gm TOP Q4H MAAME PRN Reason: Protocol Last Admin: 08/09/17 10:36 Dose: 1 applic Pantoprazole Sodium (Protonix Ec Tab) 40 mg PO 0600 MAAME PRN Reason: Protocol Last Admin: 08/09/17 07:00 Dose: 40 mg Quetiapine Fumarate (Seroquel) 25 mg PO HS MAAME PRN Reason: Protocol Attending/Attestation - Attestation I have personally seen and examined this patient.: Yes I have fully participated in the care of the patient.: Yes I have reviewed all pertinent clinical information, including history, physical exam and plan: Yes
--- NOTE | 2017-08-06 11:25 | PN ---
DATE: 08/06/2017 SUBJECTIVE: The patient is in bed in no acute distress, nontoxic. No fevers. OBJECTIVE: VITAL SIGNS: Temperature is 98, blood pressure is 120/70, respiratory rate of 18. HEENT: Examination is unremarkable. NECK: Supple. LUNGS: Have decreased breath sounds. HEART: Normal S1, S2. ABDOMEN: Soft, nontender. No rebound or guarding. No masses. DATA: Laboratory examination is noted. Microbiology is reviewed. ASSESSMENT AND PLAN: This is a 81-year-old female seen in room 315 with obesity, body mass index of 36, osteoarthritis, hypertension, diabetes, hypothyroidism, status post left toe amputation, status post right hip surgery initially admitted because of a right heel ulcer, which is infected, grew MRSA; MRI did not show osteomyelitis, currently with right heel ulcer with MRSA cellulitis, which is improving. We will complete a short course of Zyvox. We will follow with you. Clay Oneill MD
[2017-08-06] MEDS ORDERED: Insulin Detemir 100 units/ml Vial (Levemir) SC SCH (14:41)
[2017-08-06] MEDS: Insulin Reg-MEDIUM-Coverage SC SCH ×2 (17:24→21:47)
--- NOTE | 2017-08-06 21:43 | CON ---
DATE: 08/06/2017 HISTORY OF PRESENT ILLNESS: Patient is a 81-year-old white female who is being treated in the transitional care unit and for her Psychiatry was requested and psychiatric consult due to patient being on Seroquel. I reviewed patient's note including patient's recent hospitalization on the medical floor. Patient was seen by Dr. Osuna at that time, who indicated medication regimen. Patient is currently taking Seroquel and reported this medication has been beneficial for sleep. Patient denies of any psychotic symptoms and indicated that Seroquel is only being given to her for sleep difficulties. Patient was alert and oriented to month, year, location and circumstances this morning, I agree with Dr. Osuna, she appears to be in fairly good spirits, can communicate and eat well, and she is well aware of Dr. Osuna's visit with her a few days ago. Patient again denies any hallucinations, and her thought process is organized and coherent and her responses are relevant and consistent with questioning. Patient denies having any new issues. She denies being suicidal or homicidal. She denies hallucinations as noted, and presents fairly well. Her insight and judgment are considered to fair. VITAL SIGNS: Reviewed. LABORATORY DATA: Reviewed. RELEVANT PSYCHIATRIC MEDICATIONS: Only include Seroquel 25 mg at bedtime being prescribed for sleep difficulty. IMPRESSION: Chronic sleep difficulties. Patient denies other symptoms at this time. RECOMMENDATIONS: We will continue with Seroquel 25 mg at bedtime and there is no indications to change her medication at this time. Patient feels this medication is beneficial for her. Patient is stable and there appears to be no acute psychiatric issues at this time. She is not a danger to herself or others. Psychiatry will sign off at this time. Please re-consult as necessary if there are any acute changes to patient's presentation. Vandana Galaviz MD
[2017-08-07] MEDS: Mupirocin 2% Ointment 15 GM TUBE TOP SCH ×2 (00:01→14:45)
[2017-08-07] MEDS: Nystatin 100,000 Units/gm Topical Pow(15 gm) TOP SCH ×7 (02:55→21:21)
[2017-08-07] MEDS: Enoxaparin 40 mg Syringe SC SCH (05:39)
[2017-08-07] MEDS: Pantoprazole 40 mg EC Tab PO SCH (05:40)
[2017-08-07] MEDS: Levothyroxine 75 MCG TAB PO SCH (05:40)
[2017-08-07] MEDS: Insulin Reg-MEDIUM-Coverage SC SCH ×4 (06:51→21:49)
[2017-08-07] MEDS: Multivitamin Therapeutic Tab PO SCH (08:10)
[2017-08-07] MEDS: Metoprolol Succinate 25 mg XL Tab PO SCH (08:11)
--- NOTE | 2017-08-07 09:46 | CP.PCM.PN ---
<Lio Doshi - Last Filed: 08/07/17 09:42> Subjective - Date & Time of Evaluation Date of Evaluation: 08/07/17 Time of Evaluation: 08:00 - Subjective Subjective: PGY1 Medicine Note for Dr. Mancuso Patient seen and examined this morning at bedside. No acute events overnight. Patient was sitting up eating breakfast in bed. She states she is feeling well and has walking well with her therapy. She had a few questions about antibiotics and the duration need to treat her infection. Dr. Mancuso addressed all of the patient's questions and gave her a chance to ask any additional questions. Patient also reported mild itching on her upper extremities. Mild relief with moisturizing cream. Patient stated she was happy and did not have any more questions. Denies fevers, chills, nausea, vomiting, chest pain, shortness of breath, palpitations, abdominal pain, dysuria, lightheadedness, dizziness. Objective - Vital Signs/Intake and Output Vital Signs (last 24 hours): Temp Pulse Resp BP Pulse Ox 98.3 F 79 18 106/57 L 98 08/05/17 16:30 08/07/17 08:11 08/05/17 16:30 08/07/17 08:11 08/05/17 16:30 - Medications Medications: Current Medications Acetaminophen (Tylenol 325mg Tab) 650 mg PO Q4H PRN; Protocol PRN Reason: Pain, Mild (1-3) Last Admin: 08/06/17 22:46 Dose: 650 mg Aspirin (Ecotrin) 81 mg PO 0800 [facility]AME PRN Reason: Protocol Last Admin: 08/07/17 08:10 Dose: 81 mg Atorvastatin Calcium (Lipitor) 20 mg PO DIN [facility]AME PRN Reason: Protocol Last Admin: 08/06/17 17:25 Dose: 20 mg Cadexomer Iodine (Iodosorb) 0 gm TOP DAILY [facility]AME PRN Reason: Protocol Calcium Carbonate (Caltrate) 600 mg PO DAILY [facility]AME PRN Reason: Protocol Last Admin: 08/06/17 09:10 Dose: 600 mg Cholecalciferol (Vitamin D) 1,000 intlu PO DAILY [facility]AME PRN Reason: Protocol Last Admin: 08/06/17 09:15 Dose: 1,000 intlu Enoxaparin Sodium (Lovenox) 40 mg SC 0600 [facility]AME PRN Reason: Protocol Last Admin: 08/07/17 05:39 Dose: 40 mg Insulin Detemir (Levemir) 30 unit SC HS [facility]AME PRN Reason: Protocol Insulin Human Regular (Humulin R Med) 0 units SC ACHS MAAME PRN Reason: Protocol Last Admin: 08/07/17 06:51 Dose: 3 units Levothyroxine Sodium (Synthroid) 75 mcg PO 0600 [facility]AME PRN Reason: Protocol Last Admin: 08/07/17 05:40 Dose: 75 mcg Linezolid (Zyvox) 600 mg PO BID MAAME PRN Reason: Protocol Stop: 08/10/17 10:01 Last Admin: 08/06/17 17:26 Dose: 600 mg Losartan Potassium (Cozaar) 25 mg PO DAILY [facility]AME PRN Reason: Protocol Last Admin: 08/06/17 09:14 Dose: Not Given Metoprolol Succinate (Toprol Xl) 25 mg PO BRK [facility]AME PRN Reason: Protocol Last Admin: 08/07/17 08:11 Dose: 25 mg Multivitamins (Thera Tab) 1 tab PO 0800 MAAME PRN Reason: Protocol Last Admin: 08/07/17 08:10 Dose: 1 tab Mupirocin (Bactroban Ointment) 0 gm TOP DAILY [facility] Last Admin: 08/07/17 00:01 Dose: Not Given Nystatin (Nystop Topical Powder) 0 gm TOP Q4H [facility]AME PRN Reason: Protocol Last Admin: 08/07/17 05:51 Dose: Not Given Pantoprazole Sodium (Protonix Ec Tab) 40 mg PO 0600 [facility]AME PRN Reason: Protocol Last Admin: 08/07/17 05:40 Dose: 40 mg - Constitutional Appears: Non-toxic, No Acute Distress - Head Exam Head Exam: ATRAUMATIC, NORMOCEPHALIC - Eye Exam Eye Exam: Normal appearance - ENT Exam ENT Exam: Mucous Membranes Moist - Respiratory Exam Respiratory Exam: NORMAL BREATHING PATTERN. absent: Accessory Muscle Use, Respiratory Distress - Cardiovascular Exam Cardiovascular Exam: +S1 - GI/Abdominal Exam GI & Abdominal Exam: Soft. absent: Distended, Firm, Guarding, Rigid, Tenderness - Extremities Exam Extremities Exam: Pedal Edema (non pitting edema b/l). absent: Calf Tenderness Additional comments: UE: No erythema noted. skin has normal appearance b/l. LE: pressure ulcer boots in place b/l Right foot dressing in place. * Per podiatry note, full thickness ulceration located to posteromedial aspect of right heel measuring approximately 2 cm x 2 cm x 0.2 cm - wound base is a mixture of granular and fibrotic tissue. Mild serosanguinous drainage noted on inner dressing. - Neurological Exam Neurological Exam: Alert, Awake, Oriented x3 - Psychiatric Exam Psychiatric exam: Normal Affect, Normal Mood - Skin Skin Exam: Dry, Warm Assessment and Plan - Assessment and Plan (Free Text) Assessment: Elizabeth Cheng, 81F, with PMHx CAD, Diabetes, PAD, neuropathy, past amputation of L great toe and R second toes, was sent into ED from wound care center by [employer] for an infected right heel ulcer failed outpatient clindamycin and R heel 1x1 necrosis. Treated with IV antibiotics and transferred to TCU for rehab. 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 Garcia - Podiatry consulted, Dr. Pattreson - Linezolid 600mg PO BID (first dose 08/05, last dose 08/10) - Multipodus Boot - Dressings per podiatry Fungal Rash - Nystatin Powder Hx CAD/HTN - ASA 81 mg PO daily - Losartan 25mg PO daily - Metoprolol Succ. 25mg PO BRK - Atorvastatin 20 mg PO HS Diabetes - Levemir 20 units SC HS --> increased to 30 units SC HS - ISS - low Insomia - Psych consulted, Dr. Osuna - patient does not want to speak to psych any longer as she does not having any mental complaints. - quetiapine 25 PO HS Hypothyroidism - synthroid 75 mcg PO daily Upper Extremity Pruritus - No erythema noted, normal skin appearance - Patient to use moisturizing cream as needed - Benadryl 12.5mg PO BID prn Prophylactic Care - Protonix 40mg PO dialy - Lovenox 40mg SC daily Case discussed with Dr. Jamee Vaca Glenda PGY1 <Ricardo Mancuso - Last Filed: 08/07/17 10:38> Objective - Vital Signs/Intake and Output Vital Signs (last 24 hours): Temp Pulse Resp BP Pulse Ox 98.2 F 79 20 106/57 L 99 08/06/17 16:00 08/07/17 10:08 08/06/17 16:00 08/07/17 10:08 08/06/17 16:00 - Medications Medications: Current Medications Acetaminophen (Tylenol 325mg Tab) 650 mg PO Q4H PRN; Protocol PRN Reason: Pain, Mild (1-3) Last Admin: 08/06/17 22:46 Dose: 650 mg Aspirin (Ecotrin) 81 mg PO 0800 [facility]AME PRN Reason: Protocol Last Admin: 08/07/17 08:10 Dose: 81 mg Atorvastatin Calcium (Lipitor) 20 mg PO DIN [facility] PRN Reason: Protocol Last Admin: 08/06/17 17:25 Dose: 20 mg Cadexomer Iodine (Iodosorb) 0 gm TOP DAILY [facility] PRN Reason: Protocol Calcium Carbonate (Caltrate) 600 mg PO DAILY [facility] PRN Reason: Protocol Last Admin: 08/07/17 10:08 Dose: 600 mg Cholecalciferol (Vitamin D) 1,000 intlu PO DAILY [facility] PRN Reason: Protocol Last Admin: 08/07/17 10:11 Dose: 1,000 intlu Diphenhydramine HCl (Benadryl) 12.5 mg PO BID PRN PRN Reason: Itching / Pruritus Enoxaparin Sodium (Lovenox) 40 mg SC 0600 [facility]AME PRN Reason: Protocol Last Admin: 08/07/17 05:39 Dose: 40 mg Insulin Detemir (Levemir) 30 unit SC HS [facility] PRN Reason: Protocol Insulin Human Regular (Humulin R Med) 0 units SC ACHS [facility] PRN Reason: Protocol Last Admin: 08/07/17 06:51 Dose: 3 units Levothyroxine Sodium (Synthroid) 75 mcg PO 0600 [facility]AME PRN Reason: Protocol Last Admin: 08/07/17 05:40 Dose: 75 mcg Linezolid (Zyvox) 600 mg PO BID [facility]AME PRN Reason: Protocol Stop: 08/10/17 10:01 Last Admin: 08/07/17 10:11 Dose: 600 mg Losartan Potassium (Cozaar) 25 mg PO DAILY [facility] PRN Reason: Protocol Last Admin: 08/07/17 10:08 Dose: 25 mg Metoprolol Succinate (Toprol Xl) 25 mg PO BRK [facility] PRN Reason: Protocol Last Admin: 08/07/17 08:11 Dose: 25 mg Multivitamins (Thera Tab) 1 tab PO 0800 [facility]AME PRN Reason: Protocol Last Admin: 08/07/17 08:10 Dose: 1 tab Mupirocin (Bactroban Ointment) 0 gm TOP DAILY [facility] Last Admin: 08/07/17 00:01 Dose: Not Given Nystatin (Nystop Topical Powder) 0 gm TOP Q4H [facility] PRN Reason: Protocol Last Admin: 08/07/17 10:10 Dose: 1 applic Pantoprazole Sodium (Protonix Ec Tab) 40 mg PO 0600 [facility]AME PRN Reason: Protocol Last Admin: 08/07/17 05:40 Dose: 40 mg Attending/Attestation - Attestation I have personally seen and examined this patient.: Yes I have fully participated in the care of the patient.: Yes I have reviewed all pertinent clinical information, including history, physical exam and plan: Yes Notes (Text): 08/07/17 10:36 attending note; Patient seen and examined with resident in TCU. 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 patient had recent culture positive for MRSA. Currently on by mouth Zyvox. Patient is allergic to penicillin. x-ray of the ankle is negative. MRI of the right foot is negative for osteomyelitis. Continue offloading boot per podiatry. continue local wound care. diabetes; continue sliding scale.continue low-dose Levemir. dose increased. hypertension; continue Cozaar and metoprolol. upon discharge patient will follow up with PMD .
[2017-08-07] MEDS: Cholecalciferol 1,000 INTLU TAB PO SCH (10:11)
[2017-08-07] MEDS: CADEXOMER IODINE 0.9% GEL 10G TOP SCH (10:48)
--- NOTE | 2017-08-07 11:10 | PN ---
DATE: 08/07/2017 SUBJECTIVE: The patient is in bed, in no acute distress, nontoxic. PHYSICAL EXAMINATION: VITAL SIGNS: Temperature is 98, blood pressure is 90/40, respiratory rate of 18. HEENT: Unremarkable. ASSESSMENT AND PLAN: This is a 81-year-old female was seen earlier today in room 315 with obesity, body mass index of 36, osteoarthritis, hypertension, diabetes, hypothyroidism, status post left toe amputation, status post right hip surgery initially admitted because of a right heel ulcer, grew methicillin-resistant Staphylococcus aureus. MRI did not show any osteomyelitis. Currently has heel ulcer with methicillin-resistant Staphylococcus aureus cellulitis and she is improving. Short course of Zyvox p.o. The patient was started on Seroquel by Dr. Mancuso for sleep. We will discontinue that, concerned about drug-drug interaction and serotonin syndrome, will discontinue Zyvox within the next 24 to 48 hours. Clay Oneill MD
--- NOTE | 2017-08-07 12:14 | CP.PCM.PN ---
Subjective - Date & Time of Evaluation Date of Evaluation: 08/07/17 Time of Evaluation: 12:11 - Subjective Subjective: Podiatry Progress Note- Dr. Patterson 81 year old female seen and evaluated at bedside this morning regarding right posterior heel ulceration and left heel deep tissue injury. Pt resting comfortably in her chair without multipodus boots. Denies any pain to her lower extremities. Denies F/C/N/V/CP/SOB. Has no new pedal complaints today Objective - Vital Signs/Intake and Output Vital Signs (last 24 hours): Temp Pulse Resp BP Pulse Ox 98.2 F 79 20 106/57 L 99 08/06/17 16:00 08/07/17 10:08 08/06/17 16:00 08/07/17 10:08 08/06/17 16:00 - Medications Medications: Current Medications Acetaminophen (Tylenol 325mg Tab) 650 mg PO Q4H PRN; Protocol PRN Reason: Pain, Mild (1-3) Last Admin: 08/06/17 22:46 Dose: 650 mg Aspirin (Ecotrin) 81 mg PO 0800 [facility]AME PRN Reason: Protocol Last Admin: 08/07/17 08:10 Dose: 81 mg Atorvastatin Calcium (Lipitor) 20 mg PO DIN [facility]AME PRN Reason: Protocol Last Admin: 08/06/17 17:25 Dose: 20 mg Cadexomer Iodine (Iodosorb) 0 gm TOP DAILY [facility] PRN Reason: Protocol Calcium Carbonate (Caltrate) 600 mg PO DAILY [facility] PRN Reason: Protocol Last Admin: 08/07/17 10:08 Dose: 600 mg Cholecalciferol (Vitamin D) 1,000 intlu PO DAILY [facility] PRN Reason: Protocol Last Admin: 08/07/17 10:11 Dose: 1,000 intlu Diphenhydramine HCl (Benadryl) 12.5 mg PO BID PRN PRN Reason: Itching / Pruritus Enoxaparin Sodium (Lovenox) 40 mg SC 0600 [facility]AME PRN Reason: Protocol Last Admin: 08/07/17 05:39 Dose: 40 mg Insulin Detemir (Levemir) 30 unit SC HS [facility] PRN Reason: Protocol Insulin Human Regular (Humulin R Med) 0 units SC ACHS [facility] PRN Reason: Protocol Last Admin: 08/07/17 06:51 Dose: 3 units Levothyroxine Sodium (Synthroid) 75 mcg PO 0600 [facility] PRN Reason: Protocol Last Admin: 08/07/17 05:40 Dose: 75 mcg Linezolid (Zyvox) 600 mg PO BID [facility] PRN Reason: Protocol Stop: 08/10/17 10:01 Last Admin: 08/07/17 10:11 Dose: 600 mg Losartan Potassium (Cozaar) 25 mg PO DAILY [facility] PRN Reason: Protocol Last Admin: 08/07/17 10:08 Dose: 25 mg Metoprolol Succinate (Toprol Xl) 25 mg PO BRK [facility]AME PRN Reason: Protocol Last Admin: 08/07/17 08:11 Dose: 25 mg Multivitamins (Thera Tab) 1 tab PO 0800 [facility] PRN Reason: Protocol Last Admin: 08/07/17 08:10 Dose: 1 tab Mupirocin (Bactroban Ointment) 0 gm TOP DAILY [facility] Last Admin: 08/07/17 00:01 Dose: Not Given Nystatin (Nystop Topical Powder) 0 gm TOP Q4H [facility] PRN Reason: Protocol Last Admin: 08/07/17 10:10 Dose: 1 applic Pantoprazole Sodium (Protonix Ec Tab) 40 mg PO 0600 [facility]AME PRN Reason: Protocol Last Admin: 08/07/17 05:40 Dose: 40 mg - Constitutional Appears: Well, Non-toxic, No Acute Distress - Extremities Exam Additional comments: lower extremity focused exam: VASC: DP and PT pulses non-palpable B/L. CFT delayed but present. Temperature gradient warm to warm. Bilateral non-pitting lower extremity edema noted. NEURO: Gross sensation absent. DERM: Full thickness ulceration located to posteromedial aspect of right heel measuring approximately 2 cm x 2 cm x 0.2 cm - wound base is a mixture of granular and fibrotic tissue. Mild serosanguinous drainage noted on inner dressing. No malodor present. Roselyn wound exhibits skin erythema >2cm in margins. No purulence, no fluctuance, no undermining, no tunneling. Deep tissue injury noted to plantar posterior aspect of left heel with black and blue discoloration. Distal to DTI there is a healed pressure ulceration with overlying hyperkeratotic skin present. Central to ulceration is a small open fissure which exhibits minimal sanguinous drainage on inner dressing. No purulence, no fluctuance, no malodor. Small scab noted to the anterior aspect of the leg leg, no drainage, no malodor, no acute signs of infection noted. ORTHO: Multiple amputated digits. No pain on palpation bilateral lower extremity. - Neurological Exam Neurological Exam: Alert, Awake, Oriented x3 - Psychiatric Exam Psychiatric exam: Normal Affect, Normal Mood Assessment and Plan - Assessment and Plan (Free Text) Assessment: 81 year old female with 1) right posterior heel ulceration and 2) left plantar heel deep tissue injury with skin fissure - likely secondary to new diabetic shoes 3) left anterior duenas wound-healed Plan: Patient seen and evaluated at bedside Discussed with attending Dr. Patterson X-rays (-) for any signs of osteomyelitis R foot MRI negative for osteomyelitis, no signs of bone marrow edema, no acute findings Right foot cx-MRSA Bilateral heel wounds cleansed with saline R heel wound dressed with iodosorb ABD, DSD; L heel dressed with ABD, DSD, L leg dressed with bactroban,optifoam Bactroban ordered, to be applied to left leg Continue heel offloading boots at all times while in bed Pt may be full weight bearing, with regular surgical shoe on R foot, Darco heel relief shoe on L foot (pt has been dispensed heel relief shoe on previous visit ) Wounds likely due to new shoegear - pt advised to discontinue upon discharge Continue IV abx per ID Podiatry will continue to follow patient while in house
[2017-08-07] MEDS: Insulin Detemir 100 units/ml Vial (Levemir) SC SCH (21:48)
[2017-08-07] MEDS: DiphenhydrAMINE 12.5 mg/5 ml LIQ UD (5 ml) PO PRN (21:51)
[2017-08-08] MEDS: Nystatin 100,000 Units/gm Topical Pow(15 gm) TOP SCH ×6 (02:00→21:26)
[2017-08-08] MEDS: Enoxaparin 40 mg Syringe SC SCH (05:21)
[2017-08-08] MEDS: Pantoprazole 40 mg EC Tab PO SCH (05:22)
[2017-08-08] MEDS: Levothyroxine 75 MCG TAB PO SCH (05:22)
[2017-08-08] MEDS: DiphenhydrAMINE 12.5 mg/5 ml LIQ UD (5 ml) PO PRN (05:23)
[2017-08-08] MEDS: Insulin Reg-MEDIUM-Coverage SC SCH ×3 (06:56→21:53)
[2017-08-08] MEDS: Metoprolol Succinate 25 mg XL Tab PO SCH (07:53)
[2017-08-08] MEDS: Multivitamin Therapeutic Tab PO SCH (07:53)
[2017-08-08] MEDS: CADEXOMER IODINE 0.9% GEL 10G TOP SCH (10:08)
[2017-08-08] MEDS: Mupirocin 2% Ointment 15 GM TUBE TOP SCH (10:08)
[2017-08-08] MEDS: Cholecalciferol 1,000 INTLU TAB PO SCH (10:09)
--- NOTE | 2017-08-08 10:49 | CP.PCM.PCO ---
Physician Communication Note - Physician Communication Note Physician Communication Note: psychiatric team signed off
--- NOTE | 2017-08-08 14:25 | CP.PCM.PN ---
Subjective - Date & Time of Evaluation Date of Evaluation: 08/08/17 Time of Evaluation: 14:20 - Subjective Subjective: Podiatry Progress Note- Dr. Patterson 81 year old female seen and evaluated at bedside for right posterior heel ulceration and left heel deep tissue injury. Pt resting comfortably in her chair. Patient reports that she is doing well. Denies any pain to her lower extremities. Denies F/C/N/V/CP/SOB. Has no new pedal complaints today Objective - Vital Signs/Intake and Output Vital Signs (last 24 hours): Temp Pulse Resp BP Pulse Ox 98.2 F 82 16 114/63 98 08/07/17 16:00 08/08/17 10:45 08/07/17 16:00 08/08/17 10:45 08/07/17 16:00 - Medications Medications: Current Medications Acetaminophen (Tylenol 325mg Tab) 650 mg PO Q4H PRN; Protocol PRN Reason: Pain, Mild (1-3) Last Admin: 08/06/17 22:46 Dose: 650 mg Aspirin (Ecotrin) 81 mg PO 0800 MAAME PRN Reason: Protocol Last Admin: 08/08/17 07:53 Dose: 81 mg Atorvastatin Calcium (Lipitor) 20 mg PO DIN [facility]AME PRN Reason: Protocol Last Admin: 08/07/17 18:02 Dose: 20 mg Cadexomer Iodine (Iodosorb) 0 gm TOP DAILY [facility] PRN Reason: Protocol Last Admin: 08/08/17 10:08 Dose: 1 gm Calcium Carbonate (Caltrate) 600 mg PO DAILY [facility] PRN Reason: Protocol Last Admin: 08/08/17 10:09 Dose: 600 mg Cholecalciferol (Vitamin D) 1,000 intlu PO DAILY [facility] PRN Reason: Protocol Last Admin: 08/08/17 10:09 Dose: 1,000 intlu Diphenhydramine HCl (Benadryl) 12.5 mg PO BID PRN PRN Reason: Itching / Pruritus Last Admin: 08/08/17 05:23 Dose: 12.5 mg Diphenhydramine HCl (Benadryl) 25 mg PO HS PRN PRN Reason: Insomnia Last Admin: 08/07/17 23:36 Dose: 25 mg Enoxaparin Sodium (Lovenox) 40 mg SC 0600 [facility]AME PRN Reason: Protocol Last Admin: 08/08/17 05:21 Dose: 40 mg Insulin Detemir (Levemir) 30 unit SC HS [facility] PRN Reason: Protocol Last Admin: 08/07/17 21:48 Dose: 30 unit Insulin Human Regular (Humulin R Med) 0 units SC ACHS [facility] PRN Reason: Protocol Last Admin: 08/08/17 12:21 Dose: 1 units Levothyroxine Sodium (Synthroid) 75 mcg PO 0600 [facility]AME PRN Reason: Protocol Last Admin: 08/08/17 05:22 Dose: 75 mcg Linezolid (Zyvox) 600 mg PO BID [facility]AME PRN Reason: Protocol Stop: 08/10/17 10:01 Last Admin: 08/08/17 10:09 Dose: 600 mg Losartan Potassium (Cozaar) 25 mg PO DAILY [facility] PRN Reason: Protocol Last Admin: 08/08/17 10:45 Dose: 25 mg Metoprolol Succinate (Toprol Xl) 25 mg PO BRK [facility] PRN Reason: Protocol Last Admin: 08/08/17 07:53 Dose: 25 mg Multivitamins (Thera Tab) 1 tab PO 0800 [facility] PRN Reason: Protocol Last Admin: 08/08/17 07:53 Dose: 1 tab Mupirocin (Bactroban Ointment) 0 gm TOP DAILY [facility] Last Admin: 08/08/17 10:08 Dose: 1 oin Nystatin (Nystop Topical Powder) 0 gm TOP Q4H [facility] PRN Reason: Protocol Last Admin: 08/08/17 13:14 Dose: Not Given Pantoprazole Sodium (Protonix Ec Tab) 40 mg PO 0600 [facility] PRN Reason: Protocol Last Admin: 08/08/17 05:22 Dose: 40 mg - Constitutional Appears: Well, Non-toxic, No Acute Distress - Extremities Exam Extremities Exam: absent: Calf Tenderness Additional comments: lower extremity focused exam: VASC: DP and PT pulses non-palpable B/L. CFT delayed but present. Temperature gradient warm to warm. Bilateral non-pitting lower extremity edema noted. NEURO: Gross sensation absent. DERM: Full thickness ulceration located to posteromedial aspect of right heel measuring approximately 2 cm x 2 cm x 0.2 cm - wound base is mainly necrotic with fibrous tissue. No malodor present. Roselyn wound exhibits skin erythema has improved, less. No purulence, no fluctuance, no undermining, no tunneling. Deep tissue injury noted to plantar posterior aspect of left heel with black and blue discoloration. Distal to DTI there is a healed pressure ulceration with overlying hyperkeratotic skin present. Central to ulceration is a small open fissure which exhibits minimal sanguinous drainage on inner dressing. No purulence, no fluctuance, no malodor. Small scab noted to the anterior aspect of the leg leg, no drainage, no malodor, no acute signs of infection noted. ORTHO: Multiple amputated digits. No pain on palpation bilateral lower extremity. - Neurological Exam Neurological Exam: Alert, Awake, Oriented x3 Assessment and Plan - Assessment and Plan (Free Text) Assessment: 81 year old female with 1) right posterior heel ulceration and 2) left plantar heel deep tissue injury with skin fissure - likely secondary to new diabetic shoes 3) left anterior duenas wound Plan: Patient seen and evaluated at bedside Discussed with attending Dr. Patterson X-rays (-) for any signs of osteomyelitis R foot MRI negative for osteomyelitis, no signs of bone marrow edema, no acute findings Right foot cx-MRSA Bilateral heel wounds cleansed with saline Iodosorb discontinued. Will order Santyl for tomorrow Wounds all cleansed with saline solution; R heel wound dressed with mupricin and optifoam; L heel dressed with bactroban,optifoam, L anterior ulceration dressed with bactroban and optifoam Bactroban ordered, to be applied to left leg Continue heel offloading boots at all times while in bed Pt may be full weight bearing, with regular surgical shoe on R foot, Darco heel relief shoe on L foot (pt has been dispensed heel relief shoe on previous visit ) Wounds likely due to new shoegear - pt advised to discontinue upon discharge Continue IV abx per ID Podiatry will continue to follow patient while in house
--- NOTE | 2017-08-08 17:13 | CP.PCM.PN ---
Subjective - Date & Time of Evaluation Date of Evaluation: 08/08/17 Time of Evaluation: 09:55 - Subjective Subjective: Comfortable, less pain in the feet. Concerned she's not getting Seroquel. Objective - Vital Signs/Intake and Output Vital Signs (last 24 hours): Temp Pulse Resp BP Pulse Ox 98.2 F 89 16 119/59 L 98 08/07/17 16:00 08/07/17 16:00 08/07/17 16:00 08/07/17 16:00 08/07/17 16:00 - Medications Medications: Current Medications Acetaminophen (Tylenol 325mg Tab) 650 mg PO Q4H PRN; Protocol PRN Reason: Pain, Mild (1-3) Last Admin: 08/06/17 22:46 Dose: 650 mg Aspirin (Ecotrin) 81 mg PO 0800 [facility]AME PRN Reason: Protocol Last Admin: 08/07/17 08:10 Dose: 81 mg Atorvastatin Calcium (Lipitor) 20 mg PO DIN [facility]AME PRN Reason: Protocol Last Admin: 08/07/17 18:02 Dose: 20 mg Cadexomer Iodine (Iodosorb) 0 gm TOP DAILY [facility] PRN Reason: Protocol Last Admin: 08/07/17 10:48 Dose: 1 gm Calcium Carbonate (Caltrate) 600 mg PO DAILY [facility] PRN Reason: Protocol Last Admin: 08/07/17 10:08 Dose: 600 mg Cholecalciferol (Vitamin D) 1,000 intlu PO DAILY [facility] PRN Reason: Protocol Last Admin: 08/07/17 10:11 Dose: 1,000 intlu Diphenhydramine HCl (Benadryl) 12.5 mg PO BID PRN PRN Reason: Itching / Pruritus Last Admin: 08/08/17 05:23 Dose: 12.5 mg Diphenhydramine HCl (Benadryl) 25 mg PO HS PRN PRN Reason: Insomnia Last Admin: 08/07/17 23:36 Dose: 25 mg Enoxaparin Sodium (Lovenox) 40 mg SC 0600 [facility]AME PRN Reason: Protocol Last Admin: 08/08/17 05:21 Dose: 40 mg Insulin Detemir (Levemir) 30 unit SC HS [facility] PRN Reason: Protocol Last Admin: 08/07/17 21:48 Dose: 30 unit Insulin Human Regular (Humulin R Med) 0 units SC ACHS [facility] PRN Reason: Protocol Last Admin: 08/07/17 21:49 Dose: Not Given Levothyroxine Sodium (Synthroid) 75 mcg PO 0600 [facility] PRN Reason: Protocol Last Admin: 08/08/17 05:22 Dose: 75 mcg Linezolid (Zyvox) 600 mg PO BID [facility]AME PRN Reason: Protocol Stop: 08/10/17 10:01 Last Admin: 08/07/17 18:03 Dose: 600 mg Losartan Potassium (Cozaar) 25 mg PO DAILY [facility] PRN Reason: Protocol Last Admin: 08/07/17 10:08 Dose: 25 mg Metoprolol Succinate (Toprol Xl) 25 mg PO BRK [facility] PRN Reason: Protocol Last Admin: 08/07/17 08:11 Dose: 25 mg Multivitamins (Thera Tab) 1 tab PO 0800 [facility]AME PRN Reason: Protocol Last Admin: 08/07/17 08:10 Dose: 1 tab Mupirocin (Bactroban Ointment) 0 gm TOP DAILY [facility] Last Admin: 08/07/17 14:45 Dose: 2 oin Nystatin (Nystop Topical Powder) 0 gm TOP Q4H [facility] PRN Reason: Protocol Last Admin: 08/08/17 05:26 Dose: Not Given Pantoprazole Sodium (Protonix Ec Tab) 40 mg PO 0600 [facility] PRN Reason: Protocol Last Admin: 08/08/17 05:22 Dose: 40 mg - Constitutional Appears: Non-toxic, Chronically Ill - Head Exam Head Exam: NORMAL INSPECTION - Neck Exam Neck Exam: absent: Meningismus - Cardiovascular Exam Cardiovascular Exam: +S1, +S2 - GI/Abdominal Exam GI & Abdominal Exam: Soft. absent: Tenderness Assessment and Plan - Assessment and Plan (Free Text) Plan: Assessment right heel ulcer, infected with MRSA with no evidence of osteomyelitis on MRI peripheral arterial disease history of left heel infected ulcer with cellulitis without evidence of osteomyelitis on MRI history of 2nd right toe and metatarsal head osteomyelitis S/P surgery chronic renal failure obesity with BMI 38 osteoarthritis HTN DM hypothyroidism S/P left toe amputation S/P right hip surgery Plan will d/c Zyvox today and will monitor the patient clinically patient may resume her Seroquel once Zyvox is discontinued
[2017-08-08] MEDS: Insulin Detemir 100 units/ml Vial (Levemir) SC SCH (21:54)
--- NOTE | 2017-08-09 06:50 | CP.PCM.PN ---
<Simon Owens - Last Filed: 08/09/17 11:28> Subjective - Date & Time of Evaluation Date of Evaluation: 08/09/17 Time of Evaluation: 06:00 - Subjective Subjective: Patient seen and evaluated bedside. No acute issues overnight. Patient denies any complaints. Denies chest pain, shortness of breath, fever, chills or any other complaints at this time. Objective - Vital Signs/Intake and Output Vital Signs (last 24 hours): Temp Pulse Resp BP Pulse Ox 98.2 F 96 H 16 114/63 93 L 08/07/17 16:00 08/08/17 16:36 08/07/17 16:00 08/08/17 10:45 08/08/17 16:36 - Medications Medications: Current Medications Acetaminophen (Tylenol 325mg Tab) 650 mg PO Q4H PRN; Protocol PRN Reason: Pain, Mild (1-3) Last Admin: 08/06/17 22:46 Dose: 650 mg Aspirin (Ecotrin) 81 mg PO 0800 MAAME PRN Reason: Protocol Last Admin: 08/08/17 07:53 Dose: 81 mg Atorvastatin Calcium (Lipitor) 20 mg PO DIN MAAME PRN Reason: Protocol Last Admin: 08/08/17 17:15 Dose: 20 mg Cadexomer Iodine (Iodosorb) 0 gm TOP DAILY MAAME PRN Reason: Protocol Last Admin: 08/08/17 10:08 Dose: 1 gm Calcium Carbonate (Caltrate) 600 mg PO DAILY MAAME PRN Reason: Protocol Last Admin: 08/08/17 10:09 Dose: 600 mg Cholecalciferol (Vitamin D) 1,000 intlu PO DAILY MAAME PRN Reason: Protocol Last Admin: 08/08/17 10:09 Dose: 1,000 intlu Collagenase (Santyl) 1 gm TOP DAILY [facility]AME Diphenhydramine HCl (Benadryl) 12.5 mg PO BID PRN PRN Reason: Itching / Pruritus Last Admin: 08/08/17 05:23 Dose: 12.5 mg Diphenhydramine HCl (Benadryl) 25 mg PO HS PRN PRN Reason: Insomnia Last Admin: 08/08/17 22:20 Dose: 25 mg Enoxaparin Sodium (Lovenox) 40 mg SC 0600 MAAME PRN Reason: Protocol Last Admin: 08/08/17 05:21 Dose: 40 mg Insulin Detemir (Levemir) 30 unit SC HS MAAME PRN Reason: Protocol Last Admin: 08/08/17 21:54 Dose: 30 unit Insulin Human Regular (Humulin R Med) 0 units SC ACHS MAAME PRN Reason: Protocol Last Admin: 08/08/17 21:53 Dose: Not Given Levothyroxine Sodium (Synthroid) 75 mcg PO 0600 MAAME PRN Reason: Protocol Last Admin: 08/08/17 05:22 Dose: 75 mcg Losartan Potassium (Cozaar) 25 mg PO DAILY MAAME PRN Reason: Protocol Last Admin: 08/08/17 10:45 Dose: 25 mg Metoprolol Succinate (Toprol Xl) 25 mg PO BRK MAAME PRN Reason: Protocol Last Admin: 08/08/17 07:53 Dose: 25 mg Multivitamins (Thera Tab) 1 tab PO 0800 MAAME PRN Reason: Protocol Last Admin: 08/08/17 07:53 Dose: 1 tab Mupirocin (Bactroban Ointment) 0 gm TOP DAILY [facility] Last Admin: 08/08/17 10:08 Dose: 1 oin Nystatin (Nystop Topical Powder) 0 gm TOP Q4H MAAME PRN Reason: Protocol Last Admin: 08/08/17 21:26 Dose: 1 applic Pantoprazole Sodium (Protonix Ec Tab) 40 mg PO 0600 MAAME PRN Reason: Protocol Last Admin: 08/08/17 05:22 Dose: 40 mg - Constitutional Appears: Non-toxic, No Acute Distress - Eye Exam Eye Exam: Normal appearance - ENT Exam ENT Exam: Mucous Membranes Moist - Neck Exam Neck Exam: Normal Inspection - Cardiovascular Exam Cardiovascular Exam: REGULAR RHYTHM - GI/Abdominal Exam GI & Abdominal Exam: Soft - Extremities Exam Additional comments: bandage on lower extremity - Neurological Exam Neurological Exam: Alert, Awake, Oriented x3 Assessment and Plan - Assessment and Plan (Free Text) Assessment: Elizabeth Cheng, 81F, with PMHx CAD, Diabetes, PAD, neuropathy, past 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 Treated with IV antibiotics and transferred to TCU for rehab. 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 Garcia - Podiatry consulted, Dr. Patterson - Linezolid 600mg finished course - Multipodus Boot - Dressings per podiatry Fungal Rash - Nystatin Powder Hx CAD/HTN - ASA 81 mg PO daily - Losartan 25mg PO daily - Metoprolol Succ. 25mg PO BRK - Atorvastatin 20 mg PO HS Diabetes - Levemir 20 units SC HS --> increased to 30 units SC HS - ISS - low Insomia - Psych consulted, Dr. Osuna - patient does not want to speak to psych any longer as she does not having any mental complaints. - quetiapine 25 PO HS Hypothyroidism - synthroid 75 mcg PO daily Upper Extremity Pruritus - No erythema noted, normal skin appearance - Patient to use moisturizing cream as needed - Benadryl 12.5mg PO BID prn Prophylactic Care - Protonix 40mg PO dialy - Lovenox 40mg SC daily <Diego Haley - Last Filed: 08/09/17 12:29> Objective - Vital Signs/Intake and Output Vital Signs (last 24 hours): Temp Pulse Resp BP Pulse Ox 98.7 F 80 18 92/41 L 96 08/09/17 11:27 08/09/17 11:27 08/09/17 11:27 08/09/17 11:27 08/09/17 11:27 - Medications Medications: Current Medications Acetaminophen (Tylenol 325mg Tab) 650 mg PO Q4H PRN; Protocol PRN Reason: Pain, Mild (1-3) Last Admin: 08/06/17 22:46 Dose: 650 mg Aspirin (Ecotrin) 81 mg PO 0800 MAAME PRN Reason: Protocol Last Admin: 08/09/17 08:50 Dose: 81 mg Atorvastatin Calcium (Lipitor) 20 mg PO DIN MAAME PRN Reason: Protocol Last Admin: 08/08/17 17:15 Dose: 20 mg Cadexomer Iodine (Iodosorb) 0 gm TOP DAILY [facility]AME PRN Reason: Protocol Last Admin: 08/08/17 10:08 Dose: 1 gm Calcium Carbonate (Caltrate) 600 mg PO DAILY [facility]AME PRN Reason: Protocol Last Admin: 08/09/17 10:34 Dose: 600 mg Cholecalciferol (Vitamin D) 1,000 intlu PO DAILY [facility]AME PRN Reason: Protocol Last Admin: 05/22/18 10:36 Dose: 1,000 intlu Collagenase (Santyl) 1 gm TOP DAILY [facility] Diphenhydramine HCl (Benadryl) 12.5 mg PO BID PRN PRN Reason: Itching / Pruritus Last Admin: 08/08/17 05:23 Dose: 12.5 mg Diphenhydramine HCl (Benadryl) 25 mg PO HS PRN PRN Reason: Insomnia Last Admin: 08/08/17 22:20 Dose: 25 mg Enoxaparin Sodium (Lovenox) 40 mg SC 0600 MAAME PRN Reason: Protocol Last Admin: 08/09/17 07:00 Dose: 40 mg Insulin Detemir (Levemir) 30 unit SC HS MAAME PRN Reason: Protocol Last Admin: 08/08/17 21:54 Dose: 30 unit Insulin Human Regular (Humulin R Med) 0 units SC ACHS MAAME PRN Reason: Protocol Last Admin: 08/09/17 07:00 Dose: 1 units Levothyroxine Sodium (Synthroid) 75 mcg PO 0600 MAAME PRN Reason: Protocol Last Admin: 08/09/17 07:01 Dose: 75 mcg Losartan Potassium (Cozaar) 25 mg PO DAILY [facility]AME PRN Reason: Protocol Last Admin: 08/08/17 10:45 Dose: 25 mg Metoprolol Succinate (Toprol Xl) 25 mg PO BRK MAAME PRN Reason: Protocol Last Admin: 08/09/17 08:51 Dose: 25 mg Multivitamins (Thera Tab) 1 tab PO 0800 MAAME PRN Reason: Protocol Last Admin: 08/09/17 08:51 Dose: 1 tab Mupirocin (Bactroban Ointment) 0 gm TOP DAILY [facility]AME Last Admin: 08/08/17 10:08 Dose: 1 oin Nystatin (Nystop Topical Powder) 0 gm TOP Q4H MAAME PRN Reason: Protocol Last Admin: 08/09/17 10:36 Dose: 1 applic Pantoprazole Sodium (Protonix Ec Tab) 40 mg PO 0600 MAAME PRN Reason: Protocol Last Admin: 08/09/17 07:00 Dose: 40 mg Quetiapine Fumarate (Seroquel) 25 mg PO HS MAAME PRN Reason: Protocol Attending/Attestation - Attestation I have personally seen and examined this patient.: Yes I have fully participated in the care of the patient.: Yes I have reviewed all pertinent clinical information, including history, physical exam and plan: Yes Notes (Text): 08/09/17 12:27 81 year old female with past medical history of hypertension, diabetes, neuropathy and left great / right second toe amputations who was sent by wound care center for infected right heel ulcer. Recent culture was positive for MRSA. Xray and MRI were negative for osteomyelitis. She is being followed by ID and podiatry. She was completed course of zyvox as per ID. Continue with wound care as per podiatry. Continue with physical therapy while in TCU. Diego Haley MD Hospitalist.
[2017-08-09] MEDS: Nystatin 100,000 Units/gm Topical Pow(15 gm) TOP SCH ×5 (07:00→21:54)
[2017-08-09] MEDS: Enoxaparin 40 mg Syringe SC SCH (07:00)
[2017-08-09] MEDS: Pantoprazole 40 mg EC Tab PO SCH (07:00)
[2017-08-09] MEDS: Insulin Reg-MEDIUM-Coverage SC SCH ×4 (07:00→22:28)
[2017-08-09] MEDS: Levothyroxine 75 MCG TAB PO SCH (07:01)
[2017-08-09] MEDS: Multivitamin Therapeutic Tab PO SCH (08:51)
[2017-08-09] MEDS: Metoprolol Succinate 25 mg XL Tab PO SCH (08:51)
[2017-08-09] MEDS ORDERED: Collagenase 250 Units/gm Ointment(30 gm) TOP SCH (10:00)
[2017-08-09] MEDS: Cholecalciferol 1,000 INTLU TAB PO SCH (10:36)
--- NOTE | 2017-08-09 14:45 | PN ---
DATE: 08/09/2017 SUBJECTIVE: The patient seen in bed, in no acute distress, nontoxic. PHYSICAL EXAMINATION: VITAL SIGNS: Temperature is 98, blood pressure is 100/60, respiratory rate of 18, heart rate of 96. HEENT: Examination of HEENT is unremarkable. NECK: Supple. LUNGS: Have decreased breath sounds. HEART: Normal S1, S2. ABDOMINAL: Soft, nontender. LABORATORY DATA: Laboratory examination is reviewed. Review of medications reveals the patient is off of antibiotics. ASSESSMENT AND PLAN: A 81-year-old female, who is seen earlier today in room 315, doing well with a right heel ulcer was infected with methicillin-resistant Staphylococcus aureus with no evidence of osteomyelitis on the MRI in a patient with peripheral arterial disease and diabetes, hypertension, hypothyroidism and right hip surgery, had left toe amputation. Complete the Zyvox therapy and now the patient is back on Seroquel. We will follow with you. The patient is for possible discharge. Clay Oneill MD
--- NOTE | 2017-08-09 15:26 | CP.PCM.PN ---
<Jason Pruett - Last Filed: 08/09/17 15:23> Subjective - Date & Time of Evaluation Date of Evaluation: 08/09/17 Time of Evaluation: 15:23 - Subjective Subjective: Podiatry Progress Note- Dr. Owusu 81 year old female seen and evaluated at bedside for right posterior heel ulceration and left heel deep tissue injury. Pt resting comfortably in her chair. Patient reports that she is doing well. Denies any pain to her lower extremities. Reports that she has been doing well in physical therapy. Denies F/ C/N/V/CP/SOB. Has no new pedal complaints today Objective - Vital Signs/Intake and Output Vital Signs (last 24 hours): Temp Pulse Resp BP Pulse Ox 98.7 F 80 18 92/41 L 96 08/09/17 11:27 08/09/17 11:27 08/09/17 11:27 08/09/17 11:27 08/09/17 11:27 - Medications Medications: Current Medications Acetaminophen (Tylenol 325mg Tab) 650 mg PO Q4H PRN; Protocol PRN Reason: Pain, Mild (1-3) Last Admin: 08/06/17 22:46 Dose: 650 mg Aspirin (Ecotrin) 81 mg PO 0800 MAAME PRN Reason: Protocol Last Admin: 08/09/17 08:50 Dose: 81 mg Atorvastatin Calcium (Lipitor) 20 mg PO DIN MAAME PRN Reason: Protocol Last Admin: 08/08/17 17:15 Dose: 20 mg Cadexomer Iodine (Iodosorb) 0 gm TOP DAILY MAAME PRN Reason: Protocol Last Admin: 08/08/17 10:08 Dose: 1 gm Calcium Carbonate (Caltrate) 600 mg PO DAILY MAAME PRN Reason: Protocol Last Admin: 08/09/17 10:34 Dose: 600 mg Cholecalciferol (Vitamin D) 1,000 intlu PO DAILY MAAME PRN Reason: Protocol Last Admin: 08/09/17 10:36 Dose: 1,000 intlu Collagenase (Santyl) 1 gm TOP DAILY [facility]AME Diphenhydramine HCl (Benadryl) 12.5 mg PO BID PRN PRN Reason: Itching / Pruritus Last Admin: 08/08/17 05:23 Dose: 12.5 mg Diphenhydramine HCl (Benadryl) 25 mg PO HS PRN PRN Reason: Insomnia Last Admin: 08/08/17 22:20 Dose: 25 mg Enoxaparin Sodium (Lovenox) 40 mg SC 0600 MAAME PRN Reason: Protocol Last Admin: 08/09/17 07:00 Dose: 40 mg Insulin Detemir (Levemir) 30 unit SC HS MAAME PRN Reason: Protocol Last Admin: 08/08/17 21:54 Dose: 30 unit Insulin Human Regular (Humulin R Med) 0 units SC ACHS MAAME PRN Reason: Protocol Last Admin: 08/09/17 12:30 Dose: 3 units Levothyroxine Sodium (Synthroid) 75 mcg PO 0600 MAAME PRN Reason: Protocol Last Admin: 08/09/17 07:01 Dose: 75 mcg Losartan Potassium (Cozaar) 25 mg PO DAILY MAAME PRN Reason: Protocol Last Admin: 08/08/17 10:45 Dose: 25 mg Metoprolol Succinate (Toprol Xl) 25 mg PO BRK MAAME PRN Reason: Protocol Last Admin: 08/09/17 08:51 Dose: 25 mg Multivitamins (Thera Tab) 1 tab PO 0800 MAAME PRN Reason: Protocol Last Admin: 08/09/17 08:51 Dose: 1 tab Mupirocin (Bactroban Ointment) 0 gm TOP DAILY [facility] Last Admin: 08/08/17 10:08 Dose: 1 oin Nystatin (Nystop Topical Powder) 0 gm TOP Q4H MAAME PRN Reason: Protocol Last Admin: 08/09/17 14:00 Dose: Not Given Pantoprazole Sodium (Protonix Ec Tab) 40 mg PO 0600 MAAME PRN Reason: Protocol Last Admin: 08/09/17 07:00 Dose: 40 mg Quetiapine Fumarate (Seroquel) 25 mg PO HS MAAME PRN Reason: Protocol - Constitutional Appears: Well, Non-toxic, No Acute Distress - Extremities Exam Extremities Exam: absent: Calf Tenderness Additional comments: Lower extremity focused exam: VASC: DP and PT pulses non-palpable B/L. CFT delayed but present. Temperature gradient warm to warm. Bilateral non-pitting lower extremity edema noted. NEURO: Gross sensation absent. DERM: Full thickness ulceration located to posteromedial aspect of right heel measuring approximately 2 cm x 2 cm x 0.2 cm - wound base is mainly necrotic with fibrous tissue. No malodor present. Roselyn wound exhibits skin erythema has improved, less. No purulence, no fluctuance, no undermining, no tunneling. Deep tissue injury noted to plantar posterior aspect of left heel with black and blue discoloration. Distal to DTI there is a healed pressure ulceration with overlying hyperkeratotic skin present. Central to ulceration is a small open fissure which exhibits minimal sanguinous drainage on inner dressing. No purulence, no fluctuance, no malodor. Small scab noted to the anterior aspect of the leg leg, no drainage, no malodor, no acute signs of infection noted. ORTHO: Multiple amputated digits. No pain on palpation bilateral lower extremity. - Neurological Exam Neurological Exam: Alert, Awake, Oriented x3 - Psychiatric Exam Psychiatric exam: Normal Affect, Normal Mood Assessment and Plan - Assessment and Plan (Free Text) Assessment: 81 year old female with 1) right posterior heel ulceration and 2) left plantar heel deep tissue injury with skin fissure - likely secondary to new diabetic shoes 3) left anterior duenas wound Plan: Patient seen and evaluated at bedside Discussed with attending Dr. Owusu X-rays (-) for any signs of osteomyelitis R foot MRI negative for osteomyelitis, no signs of bone marrow edema, no acute findings Right foot cx-MRSA Bilateral heel wounds cleansed with saline Wounds all cleansed with saline solution; R heel wound dressed with Santyl and Optifoam; L heel dressed with bactroban,optifoam, L anterior ulceration dressed with bactroban and optifoam Bactroban ordered, to be applied to left leg Continue heel offloading boots at all times while in bed Pt may be full weight bearing, with regular surgical shoe on R foot, Darco heel relief shoe on L foot (pt has been dispensed heel relief shoe on previous visit ) Wounds likely due to new shoegear - pt advised to discontinue upon discharge Continue IV abx per ID Podiatry will continue to follow patient while in house <Robby Owusu - Last Filed: 08/12/17 11:24> Objective - Vital Signs/Intake and Output Vital Signs (last 24 hours): Temp Pulse Resp BP Pulse Ox 97.3 F L 93 H 18 99/46 L 98 08/11/17 10:00 08/11/17 16:21 08/11/17 10:00 08/12/17 08:18 08/11/17 16:21 - Medications Medications: Current Medications Acetaminophen (Tylenol 325mg Tab) 650 mg PO Q4H PRN; Protocol PRN Reason: Pain, Mild (1-3) Last Admin: 08/06/17 22:46 Dose: 650 mg Aspirin (Ecotrin) 81 mg PO 0800 MAAME PRN Reason: Protocol Last Admin: 08/12/17 08:19 Dose: 81 mg Atorvastatin Calcium (Lipitor) 20 mg PO DIN MAAME PRN Reason: Protocol Last Admin: 08/11/17 17:38 Dose: 20 mg Cadexomer Iodine (Iodosorb) 0 gm TOP DAILY MAAME PRN Reason: Protocol Last Admin: 08/11/17 14:26 Dose: Not Given Calcium Carbonate (Caltrate) 600 mg PO DAILY MAAME PRN Reason: Protocol Last Admin: 08/12/17 09:23 Dose: 600 mg Cholecalciferol (Vitamin D) 1,000 intlu PO DAILY MAAME PRN Reason: Protocol Last Admin: 08/11/17 09:48 Dose: 1,000 intlu Collagenase (Santyl) 0 gm TOP DAILY [facility] Last Admin: 08/11/17 09:44 Dose: Not Given Diphenhydramine HCl (Benadryl) 12.5 mg PO BID PRN PRN Reason: Itching / Pruritus Last Admin: 08/08/17 05:23 Dose: 12.5 mg Diphenhydramine HCl (Benadryl) 25 mg PO HS PRN PRN Reason: Insomnia Last Admin: 08/08/17 22:20 Dose: 25 mg Enoxaparin Sodium (Lovenox) 40 mg SC 0600 MAAME PRN Reason: Protocol Last Admin: 08/12/17 05:21 Dose: 40 mg Insulin Detemir (Levemir) 30 unit SC HS MAAME PRN Reason: Protocol Last Admin: 08/11/17 21:46 Dose: 30 unit Insulin Human Regular (Humulin R High) 0 units SC ACHS MAAME PRN Reason: Protocol Last Admin: 08/12/17 06:57 Dose: 4 units Insulin Human Regular (Humulin R) 3 units SC AC [facility] Last Admin: 08/12/17 07:30 Dose: Not Given Levothyroxine Sodium (Synthroid) 75 mcg PO 0600 MAAME PRN Reason: Protocol Last Admin: 08/12/17 05:22 Dose: 75 mcg Losartan Potassium (Cozaar) 12.5 mg PO DAILY MAAME PRN Reason: Protocol Metoprolol Succinate (Toprol Xl) 25 mg PO BRK MAAME PRN Reason: Protocol Last Admin: 08/12/17 08:18 Dose: Not Given Multivitamins (Thera Tab) 1 tab PO 0800 MAAME PRN Reason: Protocol Last Admin: 08/12/17 08:19 Dose: 1 tab Mupirocin (Bactroban Ointment) 0 gm TOP DAILY [facility] Last Admin: 08/11/17 09:41 Dose: Not Given Nystatin (Nystop Topical Powder) 0 gm TOP Q4H MAAME PRN Reason: Protocol Last Admin: 08/12/17 05:21 Dose: 1 applic Pantoprazole Sodium (Protonix Ec Tab) 40 mg PO 0600 MAAME PRN Reason: Protocol Last Admin: 08/12/17 05:22 Dose: 40 mg Quetiapine Fumarate (Seroquel) 25 mg PO HS MAAME PRN Reason: Protocol Last Admin: 08/11/17 21:48 Dose: 25 mg Attending/Attestation - Attestation I have personally seen and examined this patient.: Yes I have fully participated in the care of the patient.: Yes I have reviewed all pertinent clinical information, including history, physical exam and plan: Yes
[2017-08-09] MEDS: Mupirocin 2% Ointment 15 GM TUBE TOP SCH (17:46)
[2017-08-09] MEDS: CADEXOMER IODINE 0.9% GEL 10G TOP SCH (17:54)
[2017-08-09] MEDS: Insulin Detemir 100 units/ml Vial (Levemir) SC SCH (22:28)
[2017-08-10] MEDS: Nystatin 100,000 Units/gm Topical Pow(15 gm) TOP SCH ×6 (03:10→21:22)
[2017-08-10] MEDS: Insulin Reg-MEDIUM-Coverage SC SCH (07:26)
[2017-08-10] MEDS: Pantoprazole 40 mg EC Tab PO SCH (07:27)
[2017-08-10] MEDS: Enoxaparin 40 mg Syringe SC SCH (07:27)
[2017-08-10] MEDS: Levothyroxine 75 MCG TAB PO SCH (07:28)
[2017-08-10] MEDS: Metoprolol Succinate 25 mg XL Tab PO SCH (08:16)
[2017-08-10] MEDS: Multivitamin Therapeutic Tab PO SCH (08:16)
[2017-08-10] MEDS: CADEXOMER IODINE 0.9% GEL 10G TOP SCH (09:49)
[2017-08-10] MEDS: Mupirocin 2% Ointment 15 GM TUBE TOP SCH (09:50)
[2017-08-10] MEDS: Collagenase 250 Units/gm Ointment(30 gm) TOP SCH (09:51)
[2017-08-10] MEDS: Cholecalciferol 1,000 INTLU TAB PO SCH (09:51)
--- NOTE | 2017-08-10 11:29 | PN ---
DATE: 08/10/2017 SUBJECTIVE: The patient is in bed, in no acute distress, nontoxic. PHYSICAL EXAMINATION: VITAL SIGNS: Temperature is 99 and blood pressure is 120/70, respiratory rate of 18, heart rate of 80. HEENT: Examination of HEENT is unremarkable. NECK: Supple. LUNGS: Have decreased breath sounds. HEART: Normal S1, S2. ABDOMEN: Soft, nontender. LABORATORY EXAMINATION: I reviewed. ASSESSMENT AND PLAN: This is a 81-year-old female, seen earlier this morning in 315 with right heel ulcer with methicillin-resistant Staphylococcus aureus with no evidence of osteomyelitis on MRI with peripheral arterial disease and diabetes, hypertension and hypothyroidism, right hip surgery, left toe amputation. Complete the Zyvox therapy. Review of orders reveals the patient is currently off of antibiotics. Clay Oneill MD
[2017-08-10] MEDS: Insulin Reg-HIGH-Coverage SC SCH ×3 (11:45→22:25)
--- NOTE | 2017-08-10 17:07 | CP.PCM.PN ---
Subjective - Date & Time of Evaluation Date of Evaluation: 08/10/17 Time of Evaluation: 17:04 - Subjective Subjective: Podiatry Progress Note- Dr. Patterson 81 year old female seen and evaluated at bedside for right posterior heel ulceration and left heel deep tissue injury with anterior leg ulcer. Patient is seen resting comfortably in her chair, in NAD, and AA0x3. Patient reports that she is doing well. Continues to do physical therapy. Denies any pain to her lower extremities . Denies F/C/N/V/CP/SOB. Has no new pedal complaints today Objective - Vital Signs/Intake and Output Vital Signs (last 24 hours): Temp Pulse Resp BP Pulse Ox 97.4 F L 84 18 84/49 L 96 08/10/17 10:00 08/10/17 10:00 08/10/17 10:00 08/10/17 10:00 08/10/17 10:00 - Medications Medications: Current Medications Acetaminophen (Tylenol 325mg Tab) 650 mg PO Q4H PRN; Protocol PRN Reason: Pain, Mild (1-3) Last Admin: 08/06/17 22:46 Dose: 650 mg Aspirin (Ecotrin) 81 mg PO 0800 MAAME PRN Reason: Protocol Last Admin: 08/10/17 08:17 Dose: 81 mg Atorvastatin Calcium (Lipitor) 20 mg PO DIN MAAME PRN Reason: Protocol Last Admin: 08/09/17 17:55 Dose: 20 mg Cadexomer Iodine (Iodosorb) 0 gm TOP DAILY [facility]AME PRN Reason: Protocol Last Admin: 08/10/17 09:49 Dose: 10 gm Calcium Carbonate (Caltrate) 600 mg PO DAILY [facility]AME PRN Reason: Protocol Last Admin: 08/10/17 09:52 Dose: 600 mg Cholecalciferol (Vitamin D) 1,000 intlu PO DAILY [facility]AME PRN Reason: Protocol Last Admin: 08/10/17 09:51 Dose: 1,000 intlu Collagenase (Santyl) 0 gm TOP DAILY [facility] Last Admin: 08/10/17 09:51 Dose: Not Given Diphenhydramine HCl (Benadryl) 12.5 mg PO BID PRN PRN Reason: Itching / Pruritus Last Admin: 08/08/17 05:23 Dose: 12.5 mg Diphenhydramine HCl (Benadryl) 25 mg PO HS PRN PRN Reason: Insomnia Last Admin: 08/08/17 22:20 Dose: 25 mg Enoxaparin Sodium (Lovenox) 40 mg SC 0600 MAAME PRN Reason: Protocol Last Admin: 08/10/17 07:27 Dose: 40 mg Insulin Detemir (Levemir) 30 unit SC HS MAAME PRN Reason: Protocol Last Admin: 08/09/17 22:28 Dose: 30 unit Insulin Human Regular (Humulin R High) 0 units SC ACHS MAAME PRN Reason: Protocol Last Admin: 08/10/17 11:45 Dose: 7 units Levothyroxine Sodium (Synthroid) 75 mcg PO 0600 MAAME PRN Reason: Protocol Last Admin: 08/10/17 07:28 Dose: 75 mcg Losartan Potassium (Cozaar) 25 mg PO DAILY [facility]AME PRN Reason: Protocol Last Admin: 08/10/17 09:52 Dose: Not Given Metoprolol Succinate (Toprol Xl) 25 mg PO BRK MAAME PRN Reason: Protocol Last Admin: 08/10/17 08:16 Dose: 25 mg Multivitamins (Thera Tab) 1 tab PO 0800 MAAME PRN Reason: Protocol Last Admin: 08/10/17 08:16 Dose: 1 tab Mupirocin (Bactroban Ointment) 0 gm TOP DAILY [facility] Last Admin: 08/10/17 09:50 Dose: Not Given Nystatin (Nystop Topical Powder) 0 gm TOP Q4H MAAME PRN Reason: Protocol Last Admin: 08/10/17 15:00 Dose: 1 applic Pantoprazole Sodium (Protonix Ec Tab) 40 mg PO 0600 MAAME PRN Reason: Protocol Last Admin: 08/10/17 07:27 Dose: 40 mg Quetiapine Fumarate (Seroquel) 25 mg PO HS MAAME PRN Reason: Protocol Last Admin: 08/09/17 21:54 Dose: 25 mg - Constitutional Appears: Well, Non-toxic, No Acute Distress - Extremities Exam Extremities Exam: absent: Calf Tenderness Additional comments: Lower extremity focused exam: VASC: DP and PT pulses non-palpable B/L. CFT delayed but present. Temperature gradient warm to warm. Bilateral non-pitting lower extremity edema noted. NEURO: Gross sensation absent. DERM: Full thickness ulceration located to posteromedial aspect of right heel measuring approximately 2 cm x 2 cm x 0.2 cm - wound base is mainly necrotic with fibrous tissue. No malodor present. Roselyn wound exhibits skin erythema has improved, less. No purulence, no fluctuance, no undermining, no tunneling. Deep tissue injury noted to plantar posterior aspect of left heel with black and blue discoloration. Distal to DTI there is a healed pressure ulceration with overlying hyperkeratotic skin present. Central to ulceration is a small open fissure which exhibits minimal sanguinous drainage on inner dressing. No purulence, no fluctuance, no malodor. Small scab noted to the anterior aspect of the leg leg, no drainage, no malodor, no acute signs of infection noted. ORTHO: Multiple amputated digits. No pain on palpation bilateral lower extremity. - Psychiatric Exam Psychiatric exam: Normal Affect, Normal Mood Assessment and Plan - Assessment and Plan (Free Text) Assessment: 81 year old female with 1) right posterior heel ulceration and 2) left plantar heel deep tissue injury with skin fissure - likely secondary to new diabetic shoes 3) left anterior duenas wound Plan: Patient seen and evaluated at bedside Discussed with attending Dr. Owusu X-rays (-) for any signs of osteomyelitis R foot MRI negative for osteomyelitis, no signs of bone marrow edema, no acute findings Right foot cx-MRSA Bilateral heel wounds cleansed with saline Wounds all cleansed with saline solution; Using a #15 blade, R heel necrotic tissue sharply excisionally debrided to level of healthier epithelized tissue without incident. Patient tolerated the procedure well without incident. Wound dressed with Santyl and Optifoam; L heel dressed and L anterior ulceration dressed with optifoam Continue heel offloading boots at all times while in bed Pt may be full weight bearing, with regular surgical shoe on R foot, Darco heel relief shoe on L foot (pt has been dispensed heel relief shoe on previous visit ) Wounds likely due to new shoegear - pt advised to discontinue upon discharge Podiatry will continue to follow patient while in house
[2017-08-10] MEDS: Insulin Detemir 100 units/ml Vial (Levemir) SC SCH (21:20)
[2017-08-11] MEDS: Nystatin 100,000 Units/gm Topical Pow(15 gm) TOP SCH ×6 (02:39→22:50)
[2017-08-11] MEDS: Enoxaparin 40 mg Syringe SC SCH (05:37)
[2017-08-11] MEDS: Levothyroxine 75 MCG TAB PO SCH (05:37)
[2017-08-11] MEDS: Pantoprazole 40 mg EC Tab PO SCH (05:38)
[2017-08-11] MEDS: Insulin Reg-HIGH-Coverage SC SCH ×4 (08:17→21:48)
[2017-08-11] MEDS: Metoprolol Succinate 25 mg XL Tab PO SCH (08:19)
[2017-08-11] MEDS: Multivitamin Therapeutic Tab PO SCH (08:19)
[2017-08-11] MEDS: Mupirocin 2% Ointment 15 GM TUBE TOP SCH (09:41)
[2017-08-11] MEDS: Collagenase 250 Units/gm Ointment(30 gm) TOP SCH (09:44)
[2017-08-11] MEDS: Cholecalciferol 1,000 INTLU TAB PO SCH (09:48)
--- NOTE | 2017-08-11 13:21 | CP.PCM.PN ---
Subjective - Date & Time of Evaluation Date of Evaluation: 08/11/17 Time of Evaluation: 13:17 - Subjective Subjective: Podiatry Progress Note- Dr. Patterson 81 year old female seen and evaluated at bedside for right posterior heel ulceration and left heel deep tissue injury with anterior leg ulcer. Patient is seen resting comfortably in her chair, in NAD, and AA0x3. Patient reports that she will be going home soon. She reports she is improving and feeling well. Denies acute overnight events. Denies nausea, fever, shortness of breath, chest pains or chills. No new pedal complaints. Dressing is clean dry intact without strikethrough Objective - Vital Signs/Intake and Output Vital Signs (last 24 hours): Temp Pulse Resp BP Pulse Ox 97.3 F L 84 18 93/53 L 92 L 08/11/17 10:00 08/11/17 10:00 08/11/17 10:00 08/11/17 10:00 08/11/17 10:00 - Medications Medications: Current Medications Acetaminophen (Tylenol 325mg Tab) 650 mg PO Q4H PRN; Protocol PRN Reason: Pain, Mild (1-3) Last Admin: 08/06/17 22:46 Dose: 650 mg Aspirin (Ecotrin) 81 mg PO 0800 MAAME PRN Reason: Protocol Last Admin: 08/11/17 08:16 Dose: 81 mg Atorvastatin Calcium (Lipitor) 20 mg PO DIN MAAME PRN Reason: Protocol Last Admin: 08/10/17 17:51 Dose: 20 mg Cadexomer Iodine (Iodosorb) 0 gm TOP DAILY MAAME PRN Reason: Protocol Last Admin: 08/10/17 09:49 Dose: 10 gm Calcium Carbonate (Caltrate) 600 mg PO DAILY MAAME PRN Reason: Protocol Last Admin: 08/11/17 09:41 Dose: 600 mg Cholecalciferol (Vitamin D) 1,000 intlu PO DAILY MAAME PRN Reason: Protocol Last Admin: 08/11/17 09:48 Dose: 1,000 intlu Collagenase (Santyl) 0 gm TOP DAILY MAAME Last Admin: 08/11/17 09:44 Dose: Not Given Diphenhydramine HCl (Benadryl) 12.5 mg PO BID PRN PRN Reason: Itching / Pruritus Last Admin: 08/08/17 05:23 Dose: 12.5 mg Diphenhydramine HCl (Benadryl) 25 mg PO HS PRN PRN Reason: Insomnia Last Admin: 08/08/17 22:20 Dose: 25 mg Enoxaparin Sodium (Lovenox) 40 mg SC 0600 MAAME PRN Reason: Protocol Last Admin: 08/11/17 05:37 Dose: 40 mg Insulin Detemir (Levemir) 30 unit SC HS MAAME PRN Reason: Protocol Last Admin: 08/10/17 21:20 Dose: 30 unit Insulin Human Regular (Humulin R High) 0 units SC ACHS MAAME PRN Reason: Protocol Last Admin: 08/11/17 12:06 Dose: 7 units Levothyroxine Sodium (Synthroid) 75 mcg PO 0600 MAAME PRN Reason: Protocol Last Admin: 08/11/17 05:37 Dose: 75 mcg Losartan Potassium (Cozaar) 25 mg PO DAILY MAAME PRN Reason: Protocol Last Admin: 08/11/17 09:41 Dose: Not Given Metoprolol Succinate (Toprol Xl) 25 mg PO BRK MAAME PRN Reason: Protocol Last Admin: 08/11/17 08:19 Dose: Not Given Multivitamins (Thera Tab) 1 tab PO 0800 MAAME PRN Reason: Protocol Last Admin: 08/11/17 08:19 Dose: 1 tab Mupirocin (Bactroban Ointment) 0 gm TOP DAILY MAAME Last Admin: 08/11/17 09:41 Dose: Not Given Nystatin (Nystop Topical Powder) 0 gm TOP Q4H MAAME PRN Reason: Protocol Last Admin: 08/11/17 09:43 Dose: 1 applic Pantoprazole Sodium (Protonix Ec Tab) 40 mg PO 0600 MAAME PRN Reason: Protocol Last Admin: 08/11/17 05:38 Dose: 40 mg Quetiapine Fumarate (Seroquel) 25 mg PO HS MAAME PRN Reason: Protocol Last Admin: 08/10/17 21:22 Dose: 25 mg - Constitutional Appears: Well, Non-toxic, No Acute Distress - Extremities Exam Extremities Exam: absent: Calf Tenderness Additional comments: Lower extremity focused exam: VASC: DP and PT pulses non-palpable B/L. CFT delayed but present. Temperature gradient warm to warm. Bilateral non-pitting lower extremity edema noted. NEURO: Gross sensation absent. DERM: Full thickness ulceration located to posteromedial aspect of right heel measuring approximately 2 cm x 2 cm x 0.2 cm - wound base is mainly necrotic with fibrous tissue. No malodor present. Roselyn wound exhibits skin erythema has improved, less. No purulence, no fluctuance, no undermining, no tunneling. Deep tissue injury noted to plantar posterior aspect of left heel with black and blue discoloration. Distal to DTI there is a healed pressure ulceration with overlying hyperkeratotic skin present. Central to ulceration is a small open fissure which exhibits minimal sanguinous drainage on inner dressing. No purulence, no fluctuance, no malodor. Small scab noted to the anterior aspect of the leg leg, no drainage, no malodor, no acute signs of infection noted. ORTHO: Multiple amputated digits. No pain on palpation bilateral lower extremity. - Neurological Exam Neurological Exam: Alert, Awake, Oriented x3 - Psychiatric Exam Psychiatric exam: Normal Affect, Normal Mood Assessment and Plan - Assessment and Plan (Free Text) Assessment: 81 year old female with 1) right posterior heel ulceration and 2) left plantar heel deep tissue injury with skin fissure - likely secondary to new diabetic shoes 3) left anterior duenas wound Plan: Patient seen and evaluated at bedside Discussed with attending Dr. Patterson X-rays (-) for any signs of osteomyelitis R foot MRI negative for osteomyelitis, no signs of bone marrow edema, no acute findings Right foot cx-MRSA Bilateral heel wounds cleansed with saline Wounds all cleansed with saline solution; Right wound dressed with Santyl and Optifoam; L heel dressed and L anterior ulceration dressed with optifoam Continue heel offloading boots at all times while in bed Pt may be full weight bearing, with regular surgical shoe on R foot, Darco heel relief shoe on L foot (pt has been dispensed heel relief shoe on previous visit) Will follow up with Dr. Patterson on Tuesday upon discharge Wounds likely due to new shoegear - pt advised to discontinue upon discharge Podiatry will continue to follow patient while in house
[2017-08-11] MEDS: CADEXOMER IODINE 0.9% GEL 10G TOP SCH (14:26)
--- NOTE | 2017-08-11 15:09 | CP.PCM.PN ---
<Carleen Richardson - Last Filed: 08/11/17 15:05> Subjective - Date & Time of Evaluation Date of Evaluation: 08/11/17 Time of Evaluation: 08:00 - Subjective Subjective: PGY-[address] Haley Pt was asleep, easily awaken. Tolerated PT well. No acute complaint. Objective - Vital Signs/Intake and Output Vital Signs (last 24 hours): Temp Pulse Resp BP Pulse Ox 97.3 F L 84 18 93/53 L 92 L 08/11/17 10:00 08/11/17 10:00 08/11/17 10:00 08/11/17 10:00 08/11/17 10:00 - Medications Medications: Current Medications Acetaminophen (Tylenol 325mg Tab) 650 mg PO Q4H PRN; Protocol PRN Reason: Pain, Mild (1-3) Last Admin: 08/06/17 22:46 Dose: 650 mg Aspirin (Ecotrin) 81 mg PO 0800 MAAME PRN Reason: Protocol Last Admin: 08/11/17 08:16 Dose: 81 mg Atorvastatin Calcium (Lipitor) 20 mg PO DIN MAAME PRN Reason: Protocol Last Admin: 08/10/17 17:51 Dose: 20 mg Cadexomer Iodine (Iodosorb) 0 gm TOP DAILY MAAME PRN Reason: Protocol Last Admin: 08/11/17 14:26 Dose: Not Given Calcium Carbonate (Caltrate) 600 mg PO DAILY MAAME PRN Reason: Protocol Last Admin: 08/11/17 09:41 Dose: 600 mg Cholecalciferol (Vitamin D) 1,000 intlu PO DAILY MAAME PRN Reason: Protocol Last Admin: 08/11/17 09:48 Dose: 1,000 intlu Collagenase (Santyl) 0 gm TOP DAILY MAAME Last Admin: 08/11/17 09:44 Dose: Not Given Diphenhydramine HCl (Benadryl) 12.5 mg PO BID PRN PRN Reason: Itching / Pruritus Last Admin: 08/08/17 05:23 Dose: 12.5 mg Diphenhydramine HCl (Benadryl) 25 mg PO HS PRN PRN Reason: Insomnia Last Admin: 08/08/17 22:20 Dose: 25 mg Enoxaparin Sodium (Lovenox) 40 mg SC 0600 MAAME PRN Reason: Protocol Last Admin: 08/11/17 05:37 Dose: 40 mg Insulin Detemir (Levemir) 30 unit SC HS MAAME PRN Reason: Protocol Last Admin: 08/10/17 21:20 Dose: 30 unit Insulin Human Regular (Humulin R High) 0 units SC ACHS MAAME PRN Reason: Protocol Last Admin: 08/11/17 12:06 Dose: 7 units Insulin Human Regular (Humulin R) 3 units SC AC MAAME Levothyroxine Sodium (Synthroid) 75 mcg PO 0600 MAAME PRN Reason: Protocol Last Admin: 08/11/17 05:37 Dose: 75 mcg Losartan Potassium (Cozaar) 12.5 mg PO DAILY MAAME PRN Reason: Protocol Metoprolol Succinate (Toprol Xl) 25 mg PO BRK MAAME PRN Reason: Protocol Last Admin: 08/11/17 08:19 Dose: Not Given Multivitamins (Thera Tab) 1 tab PO 0800 ON LICENSE OF [facility] PRN Reason: Protocol Last Admin: 08/11/17 08:19 Dose: 1 tab Mupirocin (Bactroban Ointment) 0 gm TOP DAILY ON LICENSE OF [facility] Last Admin: 08/11/17 09:41 Dose: Not Given Nystatin (Nystop Topical Powder) 0 gm TOP Q4H MAAME PRN Reason: Protocol Last Admin: 08/11/17 14:26 Dose: 1 applic Pantoprazole Sodium (Protonix Ec Tab) 40 mg PO 0600 ON LICENSE OF [facility] PRN Reason: Protocol Last Admin: 08/11/17 05:38 Dose: 40 mg Quetiapine Fumarate (Seroquel) 25 mg PO HS MAAME PRN Reason: Protocol Last Admin: 08/10/17 21:22 Dose: 25 mg - Constitutional Appears: No Acute Distress - Head Exam Head Exam: ATRAUMATIC, NORMAL INSPECTION, NORMOCEPHALIC - Eye Exam Eye Exam: EOMI, Normal appearance, PERRL. absent: Scleral icterus Pupil Exam: NORMAL ACCOMODATION - ENT Exam ENT Exam: Mucous Membranes Moist - Neck Exam Additional comments: supple, no jvd - Respiratory Exam Respiratory Exam: Clear to Ausculation Bilateral, NORMAL BREATHING PATTERN. absent: Rales, Rhonchi, Wheezes - Cardiovascular Exam Cardiovascular Exam: REGULAR RHYTHM, +S1, +S2 - GI/Abdominal Exam GI & Abdominal Exam: Soft, Normal Bowel Sounds. 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 Treated with Vancomycin and Azactam and transferred to TCU for rehab. 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 Garcia - Podiatry consulted, Dr. Patterson - Linezolid 600mg finished course - Multipodus Boot - Dressings per podiatry Fungal Rash - Nystatin Powder Hx CAD/HTN BP 90s - ASA 81 mg PO daily - Losartan is lowered to 12.5 daily - Metoprolol Succ. 25mg PO BRK - Atorvastatin 20 mg PO HS Diabetes, sugar 200 - Levemir 20 units SC HS --> increased to 30 units SC HS - ISS - high - Add standing 3 regular insulin with meal Insomia - Psych consulted, Dr. Osuna - patient does not want to speak to psych any longer as she does not having any mental complaints. - quetiapine 25 PO HS Hypothyroidism - synthroid 75 mcg PO daily Upper Extremity Pruritus - No erythema noted, normal skin appearance - Patient to use moisturizing cream as needed - Benadryl 12.5mg PO BID prn Prophylactic Care - Protonix 40mg PO dialy - Lovenox 40mg SC daily Dispositon - home tomorrow s/r/d/w Dr Haley <Diego Haley - Last Filed: 08/11/17 15:12> Objective - Vital Signs/Intake and Output Vital Signs (last 24 hours): Temp Pulse Resp BP Pulse Ox 97.3 F L 84 18 93/53 L 92 L 08/11/17 10:00 08/11/17 10:00 08/11/17 10:00 08/11/17 10:00 08/11/17 10:00 - Medications Medications: Current Medications Acetaminophen (Tylenol 325mg Tab) 650 mg PO Q4H PRN; Protocol PRN Reason: Pain, Mild (1-3) Last Admin: 08/06/17 22:46 Dose: 650 mg Aspirin (Ecotrin) 81 mg PO 0800 MAAME PRN Reason: Protocol Last Admin: 08/11/17 08:16 Dose: 81 mg Atorvastatin Calcium (Lipitor) 20 mg PO DIN MAAME PRN Reason: Protocol Last Admin: 08/10/17 17:51 Dose: 20 mg Cadexomer Iodine (Iodosorb) 0 gm TOP DAILY MAAME PRN Reason: Protocol Last Admin: 08/11/17 14:26 Dose: Not Given Calcium Carbonate (Caltrate) 600 mg PO DAILY MAAME PRN Reason: Protocol Last Admin: 08/11/17 09:41 Dose: 600 mg Cholecalciferol (Vitamin D) 1,000 intlu PO DAILY MAAME PRN Reason: Protocol Last Admin: 08/11/17 09:48 Dose: 1,000 intlu Collagenase (Santyl) 0 gm TOP DAILY MAAME Last Admin: 08/11/17 09:44 Dose: Not Given Diphenhydramine HCl (Benadryl) 12.5 mg PO BID PRN PRN Reason: Itching / Pruritus Last Admin: 08/08/17 05:23 Dose: 12.5 mg Diphenhydramine HCl (Benadryl) 25 mg PO HS PRN PRN Reason: Insomnia Last Admin: 08/08/17 22:20 Dose: 25 mg Enoxaparin Sodium (Lovenox) 40 mg SC 0600 MAAME PRN Reason: Protocol Last Admin: 08/11/17 05:37 Dose: 40 mg Insulin Detemir (Levemir) 30 unit SC HS MAAME PRN Reason: Protocol Last Admin: 08/10/17 21:20 Dose: 30 unit Insulin Human Regular (Humulin R High) 0 units SC ACHS MAAME PRN Reason: Protocol Last Admin: 08/11/17 12:06 Dose: 7 units Insulin Human Regular (Humulin R) 3 units SC AC MAAME Levothyroxine Sodium (Synthroid) 75 mcg PO 0600 MAAME PRN Reason: Protocol Last Admin: 08/11/17 05:37 Dose: 75 mcg Losartan Potassium (Cozaar) 12.5 mg PO DAILY MAAME PRN Reason: Protocol Metoprolol Succinate (Toprol Xl) 25 mg PO BRK MAAME PRN Reason: Protocol Last Admin: 08/11/17 08:19 Dose: Not Given Multivitamins (Thera Tab) 1 tab PO 0800 MAAME PRN Reason: Protocol Last Admin: 08/11/17 08:19 Dose: 1 tab Mupirocin (Bactroban Ointment) 0 gm TOP DAILY MAAME Last Admin: 08/11/17 09:41 Dose: Not Given Nystatin (Nystop Topical Powder) 0 gm TOP Q4H MAAME PRN Reason: Protocol Last Admin: 08/11/17 14:26 Dose: 1 applic Pantoprazole Sodium (Protonix Ec Tab) 40 mg PO 0600 MAAME PRN Reason: Protocol Last Admin: 08/11/17 05:38 Dose: 40 mg Quetiapine Fumarate (Seroquel) 25 mg PO HS MAAME PRN Reason: Protocol Last Admin: 08/10/17 21:22 Dose: 25 mg Attending/Attestation - Attestation I have personally seen and examined this patient.: Yes I have fully participated in the care of the patient.: Yes I have reviewed all pertinent clinical information, including history, physical exam and plan: Yes Notes (Text): 08/11/17 15:11 81 year old female with past medical history of hypertension, diabetes, neuropathy and left great / right second toe amputations who was sent by wound care center for infected right heel ulcer. Recent culture was positive for MRSA. Xray and MRI were negative for osteomyelitis. She is being followed by ID and podiatry. She was completed course of zyvox. Continue with wound care as per podiatry. Continue with physical therapy while in TCU. She is on levemir and insulin ss for diabetes. Blood pressure has been running low, patient is asymptomatic. Will reduce her losartan dose and monitor. Patient is doing well. D/c planning tomorrow. Diego Haley MD Hospitalist.
[2017-08-11] MEDS: Insulin Regular 1 UNITS/0.01 ML ML SC SCH (17:38)
[2017-08-11] MEDS: Insulin Detemir 100 units/ml Vial (Levemir) SC SCH (21:46)
--- NOTE | 2017-08-11 22:39 | PN ---
DATE: 08/11/2017 SUBJECTIVE: The patient is in bed, in no acute distress, nontoxic. PHYSICAL EXAMINATION: GENERAL: The patient is comfortable, was seen early this morning in room 315. VITAL SIGNS: Temperature of 97, blood pressure is 93/50, respiratory rate of 18, and heart rate of 93. HEENT: Unremarkable. NECK: Supple. LUNGS: Have decreased breath sounds. HEART: Normal S1, S2. ABDOMEN: Soft. LABORATORY EXAMINATION: I reviewed. The patient's review of orders reveals the patient to be off of antibiotics. ASSESSMENT AND PLAN: This is a 81-year-old female with right heel ulcer and methicillin-resistant Staphylococcus aureus, no evidence of osteomyelitis on MRI, peripheral artery disease, diabetes, hypertension, hypothyroidism, right hip surgery, left toe amputation, on Zyvox, completed currently, off of antibiotics, afebrile. Clay Oneill MD
[2017-08-12] MEDS: Nystatin 100,000 Units/gm Topical Pow(15 gm) TOP SCH ×3 (02:05→12:15)
[2017-08-12] MEDS: Enoxaparin 40 mg Syringe SC SCH (05:21)
[2017-08-12] MEDS: Pantoprazole 40 mg EC Tab PO SCH (05:22)
[2017-08-12] MEDS: Levothyroxine 75 MCG TAB PO SCH (05:22)
[2017-08-12] MEDS: Insulin Reg-HIGH-Coverage SC SCH ×2 (06:57→12:14)
[2017-08-12] MEDS: Insulin Regular 1 UNITS/0.01 ML ML SC SCH ×2 (07:30→12:15)
[2017-08-12] MEDS: Metoprolol Succinate 25 mg XL Tab PO SCH (08:18)
[2017-08-12] MEDS: Multivitamin Therapeutic Tab PO SCH (08:19)
[2017-08-12 12:13] VITALS: BP 95/44; PULSE 78
[2017-08-12 13:40] VITALS: RESP 16; TEMP 98.2; O2SAT 92
--- NOTE | 2017-08-12 14:14 | CP.PCM.DIS ---
Provider - Provider Date of Admission: 08/04/17 16:33 Attending physician: Diego Haley MD Hospital Course - Lab Results Lab Results: Most Recent Lab Values POC Glucose (mg/dL) 181 mg/dL (65-110) H 08/12/17 11:57 Discharge Exam - Head Exam Head Exam: ATRAUMATIC, NORMAL INSPECTION, NORMOCEPHALIC Discharge Plan - Discharge Medications Prescriptions: Aspirin [Ecotrin] 81 mg PO 0800 #30 tabec Atorvastatin [Lipitor] 20 mg PO DIN #30 tab Calcium Carbonate [Caltrate] 600 mg PO DAILY #30 tab Cholecalciferol [Vitamin D 1000 IU] 1,000 intlu PO DAILY #30 tab Collagenase [Santyl] 0 gm TOP DAILY #1 tube Insulin Regular [HumuLIN R] 3 units SC AC 30 Days ml Insulin Detemir [Levemir] 30 unit SC HS 30 Days unit Levothyroxine [Synthroid] 75 mcg PO 0600 #14 tab Losartan [Cozaar] 12.5 mg PO DAILY #14 tab Metoprolol Tartrate [Lopressor] 12.5 mg PO BID #28 tab Multivitamin Therapeutic Tab [Thera Tab] 1 tab PO 0800 #14 tab Mupirocin 2% Ointment [Bactroban Ointment] 1 appl TOP DAILY #1 tube Nystatin [Nystop Topical Powder] 0 gm TOP Q4H #1 bottle Pantoprazole [Protonix EC Tab] 40 mg PO 0600 #14 ect QUEtiapine [Seroquel] 25 mg PO HS #14 tab - Follow Up Plan Condition: GOOD Disposition: HOME/ ROUTINE Instructions: Cellulitis and Erysipelas (Skin Infections), Preventing Falls in the Older Adult, Diabetic Foot Ulcer (DC), Diabetes Type 2 (DC), Diabetic Neuropathy (DC), Coronary Heart Disease (DC) Additional Instructions: 1. Discontinue the diabetic shoe. This is likely causing heel ulcer. 2. Follow up with Dr Jamison, Primary care doctor, in 1 week after discharge 3. Follow up with Dr. Ramirez, Podiatry, within 1 week after discharge 4. Hold losartan, because recent blood pressure was in 90s. As for metoprolol, because it is a lower dose, need to take twice daily. Hold metoprolol if HR is less than 60
--- NOTE | 2017-08-12 14:45 | CP.PCM.PN ---
Subjective - Date & Time of Evaluation Date of Evaluation: 08/12/17 Time of Evaluation: 10:30 - Subjective Subjective: No fevers, not in distress, improved pain in the right foot, no diarrhea. Going home today. Objective - Vital Signs/Intake and Output Vital Signs (last 24 hours): Temp Pulse Resp BP Pulse Ox 97.3 F L 93 H 18 93/53 L 98 08/11/17 10:00 08/11/17 16:21 08/11/17 10:00 08/11/17 10:00 08/11/17 16:21 - Medications Medications: Current Medications Acetaminophen (Tylenol 325mg Tab) 650 mg PO Q4H PRN; Protocol PRN Reason: Pain, Mild (1-3) Last Admin: 08/06/17 22:46 Dose: 650 mg Aspirin (Ecotrin) 81 mg PO 0800 MAAME PRN Reason: Protocol Last Admin: 08/11/17 08:16 Dose: 81 mg Atorvastatin Calcium (Lipitor) 20 mg PO DIN MAAME PRN Reason: Protocol Last Admin: 08/11/17 17:38 Dose: 20 mg Cadexomer Iodine (Iodosorb) 0 gm TOP DAILY MAAME PRN Reason: Protocol Last Admin: 08/11/17 14:26 Dose: Not Given Calcium Carbonate (Caltrate) 600 mg PO DAILY MAAME PRN Reason: Protocol Last Admin: 08/11/17 09:41 Dose: 600 mg Cholecalciferol (Vitamin D) 1,000 intlu PO DAILY MAAME PRN Reason: Protocol Last Admin: 08/11/17 09:48 Dose: 1,000 intlu Collagenase (Santyl) 0 gm TOP DAILY MAAME Last Admin: 08/11/17 09:44 Dose: Not Given Diphenhydramine HCl (Benadryl) 12.5 mg PO BID PRN PRN Reason: Itching / Pruritus Last Admin: 08/08/17 05:23 Dose: 12.5 mg Diphenhydramine HCl (Benadryl) 25 mg PO HS PRN PRN Reason: Insomnia Last Admin: 08/08/17 22:20 Dose: 25 mg Enoxaparin Sodium (Lovenox) 40 mg SC 0600 MAAME PRN Reason: Protocol Last Admin: 08/12/17 05:21 Dose: 40 mg Insulin Detemir (Levemir) 30 unit SC HS MAAME PRN Reason: Protocol Last Admin: 08/11/17 21:46 Dose: 30 unit Insulin Human Regular (Humulin R High) 0 units SC ACHS MAAME PRN Reason: Protocol Last Admin: 08/11/17 21:48 Dose: Not Given Insulin Human Regular (Humulin R) 3 units SC AC [facility] Last Admin: 08/11/17 17:38 Dose: 3 units Levothyroxine Sodium (Synthroid) 75 mcg PO 0600 MAAME PRN Reason: Protocol Last Admin: 08/12/17 05:22 Dose: 75 mcg Losartan Potassium (Cozaar) 12.5 mg PO DAILY MAAME PRN Reason: Protocol Metoprolol Succinate (Toprol Xl) 25 mg PO BRK MAAME PRN Reason: Protocol Last Admin: 08/11/17 08:19 Dose: Not Given Multivitamins (Thera Tab) 1 tab PO 0800 MAAME PRN Reason: Protocol Last Admin: 08/11/17 08:19 Dose: 1 tab Mupirocin (Bactroban Ointment) 0 gm TOP DAILY [facility] Last Admin: 08/11/17 09:41 Dose: Not Given Nystatin (Nystop Topical Powder) 0 gm TOP Q4H MAAME PRN Reason: Protocol Last Admin: 08/12/17 05:21 Dose: 1 applic Pantoprazole Sodium (Protonix Ec Tab) 40 mg PO 0600 MAAME PRN Reason: Protocol Last Admin: 08/12/17 05:22 Dose: 40 mg Quetiapine Fumarate (Seroquel) 25 mg PO HS MAAME PRN Reason: Protocol Last Admin: 08/11/17 21:48 Dose: 25 mg - Constitutional Appears: Chronically Ill - Head Exam Head Exam: NORMAL INSPECTION - ENT Exam ENT Exam: Mucous Membranes Moist - Neck Exam Neck Exam: absent: Lymphadenopathy, Meningismus - Respiratory Exam Respiratory Exam: Decreased Breath Sounds - Cardiovascular Exam Cardiovascular Exam: +S1, +S2 - GI/Abdominal Exam GI & Abdominal Exam: Soft. absent: Tenderness Assessment and Plan - Assessment and Plan (Free Text) Plan: Assessment right heel ulcer, infected with MRSA with no evidence of osteomyelitis on MRI - S/P treatment with antibiotics peripheral arterial disease history of left heel infected ulcer with cellulitis without evidence of osteomyelitis on MRI history of 2nd right toe and metatarsal head osteomyelitis S/P surgery chronic renal failure obesity with BMI 38 osteoarthritis HTN DM hypothyroidism S/P left toe amputation S/P right hip surgery Plan monitor the patient off antibiotics
--- NOTE | 2017-08-12 21:40 | CP.PCM.PN ---
<Jason Pruett - Last Filed: 08/12/17 21:37> Subjective - Date & Time of Evaluation Date of Evaluation: 08/12/17 Time of Evaluation: 13:00 - Subjective Subjective: Podiatry Progress Note- Dr. Owusu 81 year old female seen and evaluated at bedside for right posterior heel ulceration and left heel deep tissue injury with anterior leg ulcer. Patient is seen resting comfortably in her chair, in NAD, and AA0x3. Patient is going home today.Feeling well. Denies acute overnight events. Denies nausea, fever, shortness of breath, chest pains or chills. No new pedal complaints. Dressing is clean dry intact without strikethrough Objective - Vital Signs/Intake and Output Vital Signs (last 24 hours): Temp Pulse Resp BP Pulse Ox 98.2 F 78 16 95/44 L 92 L 08/12/17 10:00 08/12/17 12:12 08/12/17 10:00 08/12/17 12:12 08/12/17 10:00 - Constitutional Appears: Well, Non-toxic, No Acute Distress - Extremities Exam Extremities Exam: absent: Calf Tenderness Additional comments: Lower extremity focused exam: VASC: DP and PT pulses non-palpable B/L. CFT delayed but present. Temperature gradient warm to warm. Bilateral non-pitting lower extremity edema noted. NEURO: Gross sensation absent. DERM: Full thickness ulceration located to posteromedial aspect of right heel measuring approximately 2 cm x 2 cm x 0.2 cm - wound base is mainly necrotic with fibrous tissue. No malodor present. Roselyn wound exhibits skin erythema has improved, less. No purulence, no fluctuance, no undermining, no tunneling. Deep tissue injury noted to plantar posterior aspect of left heel with black and blue discoloration. Distal to DTI there is a healed pressure ulceration with overlying hyperkeratotic skin present. Central to ulceration is a small open fissure which exhibits minimal sanguinous drainage on inner dressing. No purulence, no fluctuance, no malodor. Small scab noted to the anterior aspect of the leg leg, no drainage, no malodor, no acute signs of infection noted. ORTHO: Multiple amputated digits. No pain on palpation bilateral lower extremity. - Neurological Exam Neurological Exam: Alert, Awake, Oriented x3 - Psychiatric Exam Psychiatric exam: Normal Affect, Normal Mood Assessment and Plan - Assessment and Plan (Free Text) Assessment: 81 year old female with 1) right posterior heel ulceration and 2) left plantar heel deep tissue injury with skin fissure - likely secondary to new diabetic shoes 3) left anterior duenas wound Plan: Patient seen and evaluated at bedside Discussed with attending Dr. Patterson X-rays (-) for any signs of osteomyelitis R foot MRI negative for osteomyelitis, no signs of bone marrow edema, no acute findings Right foot cx-MRSA Bilateral heel wounds cleansed with saline Wounds all cleansed with saline solution; Right wound dressed with Santyl and Optifoam; L heel dressed and L anterior ulceration dressed with optifoam Continue heel offloading boots at all times while in bed Pt may be full weight bearing, with regular surgical shoe on R foot, Darco heel relief shoe on L foot (pt has been dispensed heel relief shoe on previous visit) Will follow up with Dr. Patterson on Tuesday upon discharge Wounds likely due to new shoegear - pt advised to discontinue upon discharge Upon discharge, patient will continue to change dressing daily: Right wound dressed with Santyl and Optifoam; L heel dressed and L anterior ulceration dressed with optifoam or bandage Patient to make an appointment with Dr. Patterson upon discharge <Robby Owusu - Last Filed: 08/13/17 08:42> Objective - Vital Signs/Intake and Output Vital Signs (last 24 hours): Temp Pulse Resp BP Pulse Ox 98.2 F 78 16 95/44 L 92 L 08/12/17 10:00 08/12/17 12:12 08/12/17 10:00 08/12/17 12:12 08/12/17 10:00 Attending/Attestation - Attestation I have personally seen and examined this patient.: Yes I have fully participated in the care of the patient.: Yes I have reviewed all pertinent clinical information, including history, physical exam and plan: Yes
== END 2017-08-12 17:04 | disposition home health service (06) | DRG 638 ==
LOC: TRCU 16:33
PROVIDERS: ADMIT Internal Medicine; ATTEND Internal Medicine
PROC: F07Z9FZ Gait Training/Functional Ambulation Treatment using Assistive, Adaptive, Supportive or Protective Equipment (ICD-10-PCS; principal; 2017-08-06)
PROC: F07L6YZ Therapeutic Exercise Treatment of Musculoskeletal System - Lower Back / Lower Extremity using Other Equipment (ICD-10-PCS; 2017-08-08)
PROC: F08Z2FZ Grooming/Personal Hygiene Treatment using Assistive, Adaptive, Supportive or Protective Equipment (ICD-10-PCS; 2017-08-08)
PROC: F08Z1FZ Dressing Techniques Treatment using Assistive, Adaptive, Supportive or Protective Equipment (ICD-10-PCS; 2017-08-08)
DX: E11.621 Type 2 diabetes mellitus with foot ulcer (principal); L97.419 Non-pressure chronic ulcer of right heel and midfoot with unspecified severity; L03.115 Cellulitis of right lower limb; E11.51 Type 2 diabetes mellitus with diabetic peripheral angiopathy without gangrene; E11.40 Type 2 diabetes mellitus with diabetic neuropathy, unspecified; B95.62 Methicillin resistant Staphylococcus aureus infection as the cause of diseases classified elsewhere; I25.10 Atherosclerotic heart disease of native coronary artery without angina pectoris; I10 Essential (primary) hypertension; F32.9 Major depressive disorder, single episode, unspecified; M19.90 Unspecified osteoarthritis, unspecified site; E66.9 Obesity, unspecified; E03.9 Hypothyroidism, unspecified; B36.9 Superficial mycosis, unspecified; R23.4 Changes in skin texture; G47.00 Insomnia, unspecified; Z79.4 Long term (current) use of insulin; Z89.412 Acquired absence of left great toe; Z68.38 Body mass index [BMI] 38.0-38.9, adult; Z88.0 Allergy status to penicillin; Z89.422 Acquired absence of other left toe(s)

== ENCOUNTER 2017-10-04 17:25 | Observation (INO) | payer MEDICARE, OTHER ==
[2017-10-04 17:36] VITALS: BMI 35.5
[2017-10-04] MEDS ORDERED: Sodium Chloride 0.9% 250 ML IV SCH (18:15)
--- NOTE | 2017-10-04 18:26 | ED PDOC ---
Arrival/HPI - History of Present Illness Time/Duration: 24 hours Symptom Onset: Sudden Activities at Onset: Light Context: Home <Emily Stevens - Last Filed: 10/04/17 21:51> <SincereVicki Ronnie - Last Filed: 10/04/17 23:08> - General Chief Complaint: GI Problem Time Seen by Provider: 10/04/17 17:46 - History of Present Illness Narrative History of Present Illness (Text): 10/04/17 18:20 This is a 81 year old female with PMH of HT, diabetes, peripheral neuropathy and foot ulcers presenting to the ER for one day history of vomiting and nausea. Patient admits to 15-20 episodes of NBNB vomiting and associated nausea that began when she woke up at 6am. She denies unusual food intake and has been taking doxycycline for a week for a right foot ulcer. She has not had an appetite today and has been unable to take her medications due to the vomiting. She denies CP, SOB, headaches, dizziness, abdominal pain, diarrhea, constipation, hematemesis, hematochezia, urinary symptoms, fevers, chills, recent travel, recent sickness and sick contacts at home. She is compliant with her medications. PCP: Dr. Jamison Aircraft Ordnance Technician: Dr. Samson (Emily Stevens) Past Medical History - Provider Review Nursing Documentation Reviewed: Yes - Infectious Disease Hx of Infectious Diseases: None - Tetanus Immunization Tetanus Immunization: Unknown - Cardiac Hx Cardiac Disorders: Yes Hx Hypertension: Yes - Pulmonary Hx Respiratory Disorders: No - Neurological Hx Neurological Disorder: No - HEENT Hx HEENT Disorder: No - Renal Hx Renal Disorder: No - Endocrine/Metabolic Hx Endocrine Disorders: Yes Hx Diabetes Mellitus Type 2: Yes Hx Hypothyroidism: Yes - Hematological/Oncological Hx Blood Disorders: No - Integumentary Hx Dermatological Disorder: Yes Hx Cellulitis: Yes - Musculoskeletal/Rheumatological Hx Musculoskeletal Disorders: Yes Hx Falls: Yes - Gastrointestinal Hx Gastrointestinal Disorders: No - Genitourinary/Gynecological Hx Genitourinary Disorders: Yes (URINARY FREQUENCY,URGENCY) Hx Reproductive Disorders: No - Psychiatric Hx Psychophysiologic Disorder: Yes Hx Depression: Yes Hx Substance Use: No - Surgical History Hx Amputation: Yes Hx Musculoskeletal Surgery: Yes - Anesthesia Hx Anesthesia: Yes Hx Anesthesia Reactions: (not known) Hx Malignant Hyperthermia: No - Suicidal Assessment Feels Threatened In Home Enviroment: No <Emily Stevens - Last Filed: 10/04/17 21:51> Family/Social History - Physician Review Nursing Documentation Reviewed: Yes Family/Social History: Unknown Family HX Smoking Status: Never Smoked Hx Alcohol Use: Yes (HOLIDAYS) Hx Substance Use: No Hx Substance Use Treatment: No <Emily Stevens - Last Filed: 10/04/17 21:51> Allergies/Home Meds <Emily Stevens - Last Filed: 10/04/17 21:51> <Vicki Post - Last Filed: 10/04/17 23:08> Allergies/Adverse Reactions: Allergies Penicillins Allergy (Verified 10/04/17 17:32) ITCHING Home Medications: Home Meds Medication Instructions Recorded Confirmed GlipiZIDE [Glucotrol] 2.5 mg PO TID 08/01/17 10/04/17 Doxycycline Hyclate [Doryx] 100 mg PO BID 10/04/17 10/04/17 Insulin Glargine,Hum.rec.anlog 46 unit SC DAILY 10/04/17 10/04/17 [Basaglar Kwikpen U-100] Losartan [Cozaar] 25 mg PO DAILY 10/04/17 10/04/17 Metoprolol Tartrate [Lopressor] 25 mg PO DAILY 10/04/17 10/04/17 Potassium Chloride [Klor-Con M20] 10 meq PO DAILY 10/04/17 10/04/17 Review of Systems - Physician Review All systems were reviewed & negative as marked: Yes - Review of Systems Constitutional: Normal. absent: Fevers Eyes: Normal. absent: Vision Changes ENT: Normal Respiratory: Normal. absent: SOB, Cough, Wheezing Cardiovascular: Normal. absent: Chest Pain, Palpitations, Syncope Gastrointestinal: Nausea, Vomiting. absent: Abdominal Pain, Constipation, Diarrhea, Hematochezia, Hematemesis Genitourinary Female: Normal. absent: Dysuria, Frequency, Hematuria Musculoskeletal: Normal Neurological: Normal. absent: Dizziness Endocrine: Normal. absent: Diaphoresis, Polyuria Psychiatric: Normal <Emily Stevens - Last Filed: 10/04/17 21:51> Physical Exam Vital Signs Reviewed: Yes Temperature: Afebrile Blood Pressure: Normal Pulse: Regular Respiratory Rate: Normal Appearance: Positive for: Well-Appearing, Non-Toxic, Comfortable Pain Distress: None Mental Status: Positive for: Alert and Oriented X 3 - Systems Exam Head: Present: Atraumatic, Normocephalic Pupils: Present: PERRL Extroacular Muscles: Present: EOMI Conjunctiva: Present: Normal Mouth: Present: Moist Mucous Membranes Neck: Present: Normal Range of Motion Respiratory/Chest: Present: Clear to Auscultation, Good Air Exchange. No: Respiratory Distress, Accessory Muscle Use, Wheezes Cardiovascular: Present: Regular Rate and Rhythm, Normal S1, S2. No: Murmurs Abdomen: Present: Normal Bowel Sounds. No: Tenderness, Distention, Peritoneal Signs, Rebound, Guarding, McBurney's Point Tender, Rovsing's Sign Present Back: Present: Normal Inspection Upper Extremity: Present: Normal Inspection. No: Cyanosis, Edema Lower Extremity: Present: Normal Inspection. No: Edema Neurological: Present: GCS=15, CN II-XII Intact, Speech Normal, Motor Func Grossly Intact, Normal Sensory Function, Normal 2Pt Descrimination Skin: Present: Warm, Dry, Normal Color. No: Rashes Psychiatric: Present: Alert, Oriented x 3, Normal Insight, Normal Concentration <Emily Stevens - Last Filed: 10/04/17 21:51> Vital Signs Temp Pulse Resp BP Pulse Ox 10/04/17 22:37 98.5 F 99 H 18 156/93 H 99 10/04/17 18:58 98.7 F 97 H 18 160/85 H 96 10/04/17 17:44 98.7 F 97 H 18 146/71 99 Medical Decision Making <Emily Stevens - Last Filed: 10/04/17 21:51> <Vicki Post - Last Filed: 10/04/17 23:08> ED Course and Treatment: 10/04/17 18:28 Impression: This is a 81 year old female with PMH of HT, diabetes, neuropathy and foot ulcers presenting to the ER for one day history of vomiting and nausea. Differential: Gastritis vs gastroenteritis vs diabetic gastroparesis vs stroke Plan: Ordered blood work and troponin. Will get Head CT to assess for stroke. Progress: 10/04/17 18:30 Patient resting comfortably, vital signs are stable and afebrile. 10/04/17 20:25 Patient unable to tolerate food and vomited. (Emily Stevens) 10/04/17 19:48 Patient seen by resident and then evaluated by me. Reports multiple episodes of vomiting today. No abdominal pain, no diarrhea/constipation or urinary complaints. Reports that she thinks symptoms are caused by Day 8 doxycycline. EKG shows sinus tachycardia at 101bpm with LAD and LVH. CT head shows Chronic ischemic changes bilaterally. Labs at baseline. 10/04/17 20:10 Patient has intractable vomiting and continued to vomit on reevaluation. Will observe under Dr. Fernandez. Dr. Patterson consult placed as patient gets wound care from her and Dr. Patterson aware that patient to be admitted. CT abd/ pelvis added to r/o intrabdominal pathology 10/04/17 23:07 FINDINGS: There is diffuse colonic diverticulosis without diverticulitis, bowel inflammation, obstruction, free intraperitoneal air, or ascites. The appendix is normal. Mild bibasilar atelectasis. Trace sludge in the gallbladder without evidence of acute cholecystitis. Pancreatic atrophy without visualized focal lesion. The liver, spleen, adrenal glands, uterus, adnexa, and urinary bladder are normal. Left renal scarring. No hydronephrosis or pyelonephritis on either side. Atherosclerosis of the abdominal aorta without aneurysm or dissection. There are severe chronic degenerative changes present throughout the spine. Moderate bilateral hip osteoarthritis with bilateral heterotopic ossification. Postsurgical changes in the right proximal femur. Healed left pubic fractures. IMPRESSION: No acute or pelvic abnormalities. Chronic findings as described. (Vicki Post) - Lab Interpretations Lab Results: 10/04/17 18:49 10/04/17 18:49 Lab Results 10/04/17 18:49: Sodium 141, Potassium 5.0, Chloride 101, Carbon Dioxide 28, Anion Gap 17, BUN 29 H, Creatinine 0.8, Est GFR ( Amer) > 60, Est GFR ( Non-Af Amer) > 60, Random Glucose 184 H, Calcium 9.5, Phosphorus 2.8, Magnesium 2.2, Total Bilirubin 0.8, AST 49 H D, ALT 31, Alkaline Phosphatase 228 H, Total Creatine Kinase 95, Troponin I < 0.01 D, Total Protein 8.2, Albumin 4.1, Globulin 4.1, Albumin/Globulin Ratio 1.0 L, Lipase 15 L 10/04/17 18:49: WBC 11.5 H D, RBC 3.98, Hgb 12.4 D, Hct 36.6, MCV 92.0, MCH 31.2, MCHC 33.9, RDW 13.6, Plt Count 259, MPV 11.7 H, Gran % 84.6 H, Lymph % ( Auto) 11.7 L, [place] % (Auto) 3.5, Eos % (Auto) 0.0 L, Baso % (Auto) 0.2, Gran # 9.75 H, Lymph # (Auto) 1.4, [place] # (Auto) 0.4, Eos # (Auto) 0.0, Baso # (Auto) 0.02 - RAD Interpretation Radiology Orders: 10/04/17 18:07 HEAD W/O CONTRAST [CT] Stat - Medication Orders Current Medication Orders: Aspirin (Ecotrin) 81 mg PO 0800 MAAME Atorvastatin Calcium (Lipitor) 20 mg PO DIN MAAME Calcium Carbonate (Caltrate) 600 mg PO DAILY MAAME Cholecalciferol (Vitamin D) 1,000 intlu PO DAILY MAAME Glipizide (Glucotrol) 2.5 mg PO TID MAAME Sodium Chloride (Sodium Chloride 0.45%) 1,000 mls @ 100 mls/hr IV .Q10H MAAME Insulin Human Lispro (Humalog Med) 0 units SC ACHS MAAME PRN Reason: Protocol Levothyroxine Sodium (Synthroid) 75 mcg PO 0600 MAAME Losartan Potassium (Cozaar) 25 mg PO DAILY MAAME Metoprolol Tartrate (Lopressor) 25 mg PO DAILY [facility] Multivitamins (Thera Tab) 1 tab PO 0800 MAAME Potassium Chloride (Klor-Con 10) 10 meq PO DAILY MAAME Quetiapine Fumarate (Seroquel) 25 mg PO HS MAAME PRN Reason: Protocol Discontinued Medications Diphenhydramine HCl (Benadryl) 12.5 mg IVP STAT STA Stop: 10/04/17 20:15 Last Admin: 10/04/17 20:36 Dose: 12.5 mg IVP Administration Document 10/04/17 20:36 OCS (Rec: 10/04/17 20:36 [email or web address] Charges for Administration # of IVP Administrations 1 Diphenhydramine HCl (Benadryl) 12.5 mg IVP STAT STA Stop: 10/04/17 22:19 Sodium Chloride (Sodium Chloride 0.9%) 250 mls @ 250 mls/hr IV .Q1H MAAME Last Admin: 10/04/17 18:30 Dose: 250 mls/hr eMAR Start Stop Document 10/04/17 18:30 OCS (Rec: 10/04/17 18:31 [email or web address] Intravenous Solution Start Date 10/04/17 Start Time 18:31 End Date 10/04/17 End time 19:31 Total Infusion Time 60 Metoclopramide HCl (Reglan) 10 mg IVP STAT STA Stop: 10/04/17 20:22 Last Admin: 10/04/17 20:36 Dose: 10 mg IVP Administration Document 10/04/17 20:36 OCS (Rec: 10/04/17 20:36 [email or web address] Charges for Administration # of IVP Administrations 1 Ondansetron HCl (Zofran Inj) 4 mg IVP STAT STA Stop: 10/04/17 18:08 Last Admin: 10/04/17 18:29 Dose: 4 mg IVP Administration Document 10/04/17 18:29 OCS (Rec: 10/04/17 18:29 [email or web address] Charges for Administration # of IVP Administrations 1 - PA / [employer] END FINDER / Resident Statement / has reviewed & agrees with the documentation as recorded. / has examined the patient and agrees with the treatment plan. <Emily Stevens - Last Filed: 10/04/17 21:51> Disposition/Present on Arrival - Present on Arrival Any Indicators Present on Arrival: No History of DVT/PE: No History of Uncontrolled Diabetes: No Urinary Catheter: No History of Decub. Ulcer: No History Surgical Site Infection Following: None - Disposition Have Diagnosis and Disposition been Completed?: Yes Patient Plan: Observation <Emily Stevens - Last Filed: 10/04/17 21:51> - Present on Arrival Any Indicators Present on Arrival: No - Disposition Have Diagnosis and Disposition been Completed?: Yes Disposition Time: 20:31 Patient Plan: Observation <Vicki Post - Last Filed: 10/04/17 23:08> - Disposition Diagnosis: Intractable vomiting Disposition: HOSPITALIZED Patient Problems: Current Active Problems Problem Status Onset Intractable vomiting Acute Condition: FAIR
[2017-10-04 19:03] LABS: BASO # 0.02 K/mm3 (0.0-2.0); BASO % 0.2 % (0.0-3.0); GRAN # 9.75 (1.4-6.5); GRAN % 84.6 % (50.0-68.0); HEMOGLOBIN 12.4 g/dL (12.0-16.0); LYMPH # 1.4 (1.2-3.4); LYMPH % 11.7 % (22.0-35.0); MEAN CORPUSCULAR HEMOGLOBIN 31.2 pg (25.0-35.0); MEAN CORPUSCULAR HGB CONC 33.9 g/dl (31.0-37.0); MEAN PLATELET VOLUME 11.7 fl (7.0-11.0); MONO # 0.4 (0.1-0.6); MONO % 3.5 % (1.0-6.0); RBC 3.98 10^6/uL (3.5-6.1); RED CELL DISTRIBUTION WIDTH 13.6 % (11.5-14.5); WHITE BLOOD COUNT 11.5 10^3/ul (4.5-11.0)
[2017-10-04 19:10] LABS: ALBUMIN 4.1 g/dL (3.0-4.8); CALCIUM 9.5 mg/dL (8.4-10.5); GFR AFRICAN-AMERICAN > 60; GFR NON-AFRICAN AMERICAN > 60; LIPASE 15 U/L (23-300)
[2017-10-04 19:11] LABS: ALT/SGPT 31 U/L (7-56); AST/SGOT 49 U/L (14-36); BLOOD UREA NITROGEN 29 mg/dL (7-21)
[2017-10-04 19:20] LABS: TROPONIN I < 0.01 ng/mL
[2017-10-04] MEDS ORDERED: DiphenhydrAMINE 50 mg/ml Inj IVP STA ×3 (20:05→22:18)
[2017-10-04] MEDS ORDERED: DiphenhydrAMINE 12.5 mg/5 ml LIQ UD (5 ml) PO STA (20:11)
[2017-10-04 20:51] LABS: URINE BILIRUBIN NEGATIVE (NEGATIVE); URINE BLOOD TRACE-INTACT (NEGATIVE); URINE GLUCOSE (UA) NEGATIVE (NEGATIVE); URINE LEUKOCYTE ESTERASE NEGATIVE Leu/uL (NEGATIVE); URINE PROTEIN NEGATIVE mg/dL (<30 mg/dL); URINE UROBILINOGEN 0.2 E.U./dL (<1 E.U./dL)
[2017-10-04 20:52] LABS: URINE APPEARANCE CLEAR (CLEAR); URINE COLOR YELLOW (YELLOW)
[2017-10-04 21:02] LABS: URINE RBC 0 - 2 /hpf (0-2); URINE WBC NEGATIVE /hpf (0-6)
[2017-10-05] MEDS: Sodium Chloride 0.45% 1,000 ML IV SCH ×2 (00:44→10:21)
[2017-10-05] MEDS ORDERED: Pneumococcal 23-Valent Vaccine IM ONE (02:09)
[2017-10-05] MEDS: Levothyroxine 75 MCG TAB PO SCH (06:52)
[2017-10-05] MEDS: Insulin Lispro (humaLOG) MEDIUM Coverage SC SCH ×4 (07:16→21:29)
--- NOTE | 2017-10-05 08:42 | CT ---
Date of service: 10/04/2017 PROCEDURE: CT HEAD WITHOUT CONTRAST. HISTORY: vomiting COMPARISON: 01/02/2013. TECHNIQUE: Axial computed tomography images were obtained through the head/brain without intravenous contrast. Radiation dose: Total exam DLP = 854.54 mGy-cm. This CT exam was performed using one or more of the following dose reduction techniques: Automated exposure control, adjustment of the mA and/or kV according to patient size, and/or use of iterative reconstruction technique. FINDINGS: HEMORRHAGE: No intracranial hemorrhage. BRAIN: There are mild chronic microangiopathic changes. There is no mass, mass effect or abnormal extra-axial fluid collection. There is no territorial infarction. There are coarse atherosclerotic calcifications in the cavernous carotid arteries. VENTRICLES: There is mild age-related global parenchymal volume loss and proportionate enlargement of the ventricles and cortical sulci. CALVARIUM: There is no calvarial fracture or extracranial soft tissue swelling. PARANASAL SINUSES: Predominantly clear. MASTOID AIR CELLS: Predominantly clear. OTHER FINDINGS: None. IMPRESSION: No acute intracranial abnormality. Mild chronic microangiopathic changes and mild age-related global parenchymal volume loss. A preliminary report was provided by [employer] services.
[2017-10-05] MEDS: Multivitamin Therapeutic Tab PO SCH (08:53)
--- NOTE | 2017-10-05 09:26 | CARD ---
APPROVED REPORT Date of service: 10/04/2017 EKG Measurement Heart [id number] ND 206P46 [id number] <Conclusion> Sinus tachycardia Left axis deviation Left ventricular hypertrophy with repolarization abnormality Prolonged ND interval.
--- NOTE | 2017-10-05 09:53 | CT ---
Date of service: 10/04/2017 PROCEDURE: CT Abdomen and Pelvis with contrast HISTORY: intractable vomiting COMPARISON: None. TECHNIQUE: Contrast dose: 138 mL of Omni 350 Radiation dose: Total exam DLP = 1214 mGy-cm. This CT exam was performed using one or more of the following dose reduction techniques: Automated exposure control, adjustment of the mA and/or kV according to patient size, and/or use of iterative reconstruction technique. FINDINGS: LOWER THORAX: Unremarkable. LIVER: Unremarkable. No gross lesion or ductal dilatation. GALLBLADDER AND BILE DUCTS: Unremarkable. PANCREAS: Unremarkable. No gross lesion or ductal dilatation. SPLEEN: Unremarkable. ADRENALS: Unremarkable. No mass. KIDNEYS AND URETERS: Unremarkable. No hydronephrosis. No solid mass. VASCULATURE: Unremarkable. No aortic aneurysm. BOWEL: Unremarkable. No obstruction. No gross mural thickening. APPENDIX: Normal appendix. PERITONEUM: Unremarkable. No free fluid. No free air. LYMPH NODES: Unremarkable. No enlarged lymph nodes. BLADDER: Unremarkable. REPRODUCTIVE: Unremarkable. BONES: Degenerative changes in the left hip. Previous internal fixation right hip. Degenerative changes in the lumbar spine OTHER FINDINGS: The report concurs with the preliminary [employer] report IMPRESSION: No acute intracranial findings
[2017-10-05] MEDS: Potassium Chloride 10 mEq ER Tab PO SCH (10:17)
[2017-10-05] MEDS: Cholecalciferol 1,000 INTLU TAB PO SCH (10:18)
--- NOTE | 2017-10-05 11:13 | CP.PCM.CON ---
<Jason Pruett - Last Filed: 10/05/17 11:23> History of Present Illness - History of Present Illness History of Present Illness: Podiatry Consult Note Dr. Patterson/Dr. Owusu 81 y/o female with PMHx of CAD, Diabetes, PAD, neuropathy, and previous amputations of L great toe and R second toes seen and examined at bedside with attending Dr. Patterson regarding bilateral heel ulcerations and blister on right 3rd digit, and superficial abrasion on left 2nd digit. Patient is seen resting comfortably in bed, in NAD, and AA0x3. Patient was admitted for intractable vomiting. Patient reports she thinks it's from the antibiotics that she was taking. Currently denies any lower extremity pain. Denies calf pain or tenderness. Reports have been having change dressing as instructed. Denies any fever, shortness of breath, chest pains or chills. Past Patient History - Infectious Disease Hx of Infectious Diseases: None - Tetanus Immunizations Tetanus Immunization: Unknown - Past Medical History & Family History Past Medical History?: Yes - Past Social History Smoking Status: Never Smoked - CARDIAC Hx Cardiac Disorders: Yes Hx Hypercholesterolemia: Yes Hx Hypertension: Yes - PULMONARY Hx Respiratory Disorders: No - NEUROLOGICAL Hx Neurological Disorder: No - HEENT Hx HEENT Problems: Yes Hx Cataracts: Yes (repair ou) - RENAL Hx Chronic Kidney Disease: No - ENDOCRINE/METABOLIC Hx Endocrine Disorders: Yes Hx Diabetes Mellitus Type 2: Yes Hx Hypothyroidism: Yes - HEMATOLOGICAL/ONCOLOGICAL Hx Blood Disorders: No - INTEGUMENTARY Hx Dermatological Problems: No - MUSCULOSKELETAL/RHEUMATOLOGICAL Hx Musculoskeletal Disorders: Yes Hx Arthritis: Yes Hx Falls: No Hx Fractures: Yes (vertebrae) - GASTROINTESTINAL Hx Gastrointestinal Disorders: No - GENITOURINARY/GYNECOLOGICAL Hx Genitourinary Disorders: Yes (URINARY FREQUENCY,URGENCY) - PSYCHIATRIC Hx Psychophysiologic Disorder: Yes Hx Depression: Yes (denied) Hx Substance Use: No - SURGICAL HISTORY Hx Surgeries: Yes Hx Amputation: Yes (L 1st toe, R 2nd toe) Hx Musculoskeletal Surgery: Yes Hx Orthopedic Surgery: Yes Other/Comment: FGx R hip with marisol insertion, carpal tunnel surgery bilaterally, partial thyroidectomy, - ANESTHESIA Hx Anesthesia: Yes Hx Anesthesia Reactions: (not known) Hx Malignant Hyperthermia: No Meds Allergies/Adverse Reactions: Allergies Allergy/AdvReac Type Severity Reaction Status Date / Time Penicillins Allergy Intermediate ITCHING Verified 10/05/17 02:19 - Medications Medications: Current Medications Aspirin (Ecotrin) 81 mg PO 0800 [facility] Last Admin: 10/05/17 08:52 Dose: 81 mg Atorvastatin Calcium (Lipitor) 20 mg PO DIN [facility] Last Admin: 10/05/17 00:41 Dose: 20 mg Calcium Carbonate (Caltrate) 600 mg PO DAILY [facility] Last Admin: 10/05/17 10:13 Dose: 600 mg Cholecalciferol (Vitamin D) 1,000 intlu PO DAILY [facility] Last Admin: 10/05/17 10:18 Dose: 1,000 intlu Glipizide (Glucotrol) 2.5 mg PO TID [facility] Last Admin: 10/05/17 10:15 Dose: 2.5 mg Sodium Chloride (Sodium Chloride 0.45%) 1,000 mls @ 100 mls/hr IV .Q10H [facility] Last Admin: 10/05/17 10:21 Dose: 100 mls/hr Insulin Human Lispro (Humalog Med) 0 units SC ACHS [facility] PRN Reason: Protocol Last Admin: 10/05/17 07:16 Dose: Not Given Levothyroxine Sodium (Synthroid) 75 mcg PO 0600 [facility] Last Admin: 10/05/17 06:52 Dose: 75 mcg Losartan Potassium (Cozaar) 25 mg PO DAILY [facility] Last Admin: 10/05/17 10:14 Dose: 25 mg Metoprolol Tartrate (Lopressor) 25 mg PO DAILY [facility] Last Admin: 10/05/17 10:17 Dose: Not Given Multivitamins (Thera Tab) 1 tab PO 0800 [facility] Last Admin: 10/05/17 08:53 Dose: 1 tab Potassium Chloride (Klor-Con 10) 10 meq PO DAILY [facility] Last Admin: 10/05/17 10:17 Dose: 10 meq Quetiapine Fumarate (Seroquel) 25 mg PO HS [facility] PRN Reason: Protocol Last Admin: 10/05/17 00:42 Dose: 25 mg Physical Exam - Extremities Exam Extremities exam: Negative for: calf tenderness Additional comments: Lower extremity focused exam: VASC: DP and PT pulses non-palpable B/L. CFT delayed but present. Temperature gradient warm to warm. Bilateral non-pitting lower extremity edema noted. NEURO: Gross sensation absent. DERM: Full thickness ulceration located to posteromedial aspect of right heel measuring approximately 2 cm x 2 cm x 0.2 cm - wound base is mixture of fibrotic and granular tissue. No malodor present. No erythema. No purulence, no fluctuance, no undermining, no tunneling. Deep tissue injury noted to plantar posterior aspect of left heel- almost resolving. Small dried blood blister noted to the dorsum of the right 3rd digit, very superficial abrasion of left 2nd digit. No clinical signs of infection. No malodor present. No erythema. No purulence, no fluctuance, no undermining, no tunneling. ORTHO: Multiple amputated digits. No pain on palpation bilateral lower extremity. Results - Vital Signs Recent Vital Signs: Last Vital Signs Temp 98.2 F 10/04/17 23:28 Pulse 105 H 10/04/17 23:28 Resp 20 10/04/17 23:28 BP 109/62 10/05/17 10:17 Pulse Ox 99 10/04/17 23:00 - Labs Result Diagrams: 10/04/17 18:49 10/04/17 18:49 Labs: Laboratory Results - last 24 hr 10/04/17 20:40 Urine Color Yellow Urine Appearance Clear Urine pH 6.0 Ur Specific [place] 1.010 Urine Protein Negative Urine Glucose (UA) Negative Urine Ketones Negative Urine Blood Trace-intact H Urine Nitrate Negative Urine Bilirubin Negative Urine Urobilinogen 0.2 Ur Leukocyte Esterase Negative Urine RBC 0 - 2 Urine WBC Negative Ur Epithelial Cells 1 - 3 Assessment & Plan - Assessment and Plan (Free Text) Assessment: 81 year old female with 1) right posterior heel ulceration secondary to DM and pressure 2) left plantar heel deep tissue injury secondary to DM and pressure 3 ) left 2nd digit superficial abrasion secondary to shoegear 4) right 3rd digit dried blood blister secondary shoegear All wounds stable with no clinical signs of infection Plan: Patient seen and evaluated at bedside Discussed plan with attending Dr. Patterson WBC=11.5, leukocytosis not from lower extremity wounds Bilaterally foot wounds cleansed with saline solution Dressed left and right heels with maxosorb and optifoam Dressed right 3rd digit dried blood blister with dsd and paper tape Left superficial abrasion left open to air dry Ordered multipodus boots to be worn at all times when in bed Patient may WBAT in [employer] shoes Thank you for allowing us to participate in patient's care Upon discharge, patient may continue current dressing regimen at home with silver, dsd to wounds Patient will follow up with Dr. Patterson within 1 week in wound care <Brinda Patterson - Last Filed: 10/09/17 16:46> Results - Vital Signs Recent Vital Signs: Last Vital Signs Temp 97.7 F 10/06/17 06:00 Pulse 87 10/06/17 06:00 Resp 18 10/06/17 06:00 BP 140/71 10/06/17 06:00 Pulse Ox 95 10/06/17 06:00 - Labs Result Diagrams: 10/06/17 06:00 10/06/17 06:00 Attending/Attestation - Attestation I have personally seen and examined this patient.: Yes I have fully participated in the care of the patient.: Yes I have reviewed all pertinent clinical information: Yes
[2017-10-05] MEDS ORDERED: Sodium Chloride 0.45% 1,000 ML IV SCH (19:26)
[2017-10-05] MEDS: Nystatin 100,000 Units/gm Topical Pow(15 gm) TOP SCH (22:16)
[2017-10-06] MEDS: Levothyroxine 75 MCG TAB PO SCH (06:12)
[2017-10-06 06:37] LABS: BASO # 0.03 K/mm3 (0.0-2.0); BASO % 0.4 % (0.0-3.0); EOS # 0.4 (0.0-0.7); EOS % 5.3 % (1.5-5.0); GRAN # 3.22 (1.4-6.5); GRAN % 46.4 % (50.0-68.0); HEMOGLOBIN 10.6 g/dL (12.0-16.0); LYMPH # 2.5 (1.2-3.4); LYMPH % 36.5 % (22.0-35.0); MEAN CELL VOLUME 93.4 fl (80.0-105.0); MEAN CORPUSCULAR HEMOGLOBIN 30.5 pg (25.0-35.0); MEAN CORPUSCULAR HGB CONC 32.6 g/dl (31.0-37.0); MEAN PLATELET VOLUME 11.1 fl (7.0-11.0); MONO # 0.8 (0.1-0.6); MONO % 11.4 % (1.0-6.0); RBC 3.48 10^6/uL (3.5-6.1); RED CELL DISTRIBUTION WIDTH 13.6 % (11.5-14.5)
[2017-10-06 06:48] LABS: WHITE BLOOD COUNT 6.9 10^3/ul (4.5-11.0)
[2017-10-06 06:53] LABS: ALB/GLOB RATIO 0.9 (1.1-1.8); ALBUMIN 3.2 g/dL (3.0-4.8); ALT/SGPT 32 U/L (7-56); AST/SGOT 40 U/L (14-36); BLOOD UREA NITROGEN 19 mg/dL (7-21); CALCIUM 8.7 mg/dL (8.4-10.5); GFR AFRICAN-AMERICAN > 60; GFR NON-AFRICAN AMERICAN > 60
--- NOTE | 2017-10-06 08:09 | HP ---
HISTORY OF PRESENT ILLNESS: The patient is 81 years old who has been followed by Dr. Patterson as outpatient. She had wound on her right third toe; for that, she was given antibiotics, doxycycline for 2 weeks. She started to have diarrhea that got worse yesterday. She felt nauseous, has been throwing up, was unable to hold any liquids, so she came to emergency room because of generalized weakness, intractable nausea, and was admitted overnight. She denies any fever or chills. No history of hemoptysis. No hematemesis. PAST MEDICAL HISTORY: She has a past medical history significant for; 1. Insulin-dependent diabetes. 2. Peripheral vascular disease. 3. History of coronary artery disease, status post angioplasty. 4. Diabetic neuropathy. 5. 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 She is also under care of Dr. Patterson for her chronic bilateral heel ulcerations. ALLERGIES: SHE IS ALLERGIC TO PENICILLIN. MEDICATIONS: At home, she is on aspirin 81 daily, Seroquel 25 at bedtime, potassium 10 mEq daily, multivitamin, metoprolol, losartan, levothyroxine, glipizide 5 mg twice a day. SOCIAL HISTORY: She lives with her daughter. Denies smoking, drinking or alcohol use. PHYSICAL EXAMINATION: GENERAL: She is awake, alert, oriented, communicative. VITAL SIGNS: She is afebrile, pulse 105, respirations 20, blood pressure 107/63. LUNGS: Bilateral fair airflow. No rhonchi or crackle. HEART: S1 and S2 audible. ABDOMEN: Soft, nontender. No rebound. No guarding. NEUROLOGICAL: She is awake, alert, oriented, communicative. Moves all extremities. EXTREMITIES: Right foot is in the dressing, and third toe wound seems to be healing. ASSESSMENT: 1. Status post intractable nausea probably secondary to oral antibiotics, not nauseous anymore. 2. insulin dependent diabetes. 3. Hypertension. 4. Hyperlipidemia. 5. Peripheral vascular disease. 6. Dehydration. PLAN: We will advance her diet. Follow up her CBC and CMP in a.m. Patient continued to tolerate her diet and her electrolytes improved. She will be discharged in the a.m. Liam Fernandez MD [facility] # [id number]
[2017-10-06 09:03] VITALS: BP 140/71; PULSE 87; RESP 18; TEMP 97.7; O2SAT 95
[2017-10-06] MEDS: Insulin Lispro (humaLOG) MEDIUM Coverage SC SCH ×4 (10:06→17:00)
[2017-10-06] MEDS: Multivitamin Therapeutic Tab PO SCH (10:11)
[2017-10-06] MEDS: Potassium Chloride 10 mEq ER Tab PO SCH (10:11)
[2017-10-06] MEDS: Cholecalciferol 1,000 INTLU TAB PO SCH (10:11)
[2017-10-06] MEDS: Nystatin 100,000 Units/gm Topical Pow(15 gm) TOP SCH ×2 (10:12→17:01)
--- NOTE | 2017-10-06 13:11 | CP.PCM.PN ---
<Jason Pruett - Last Filed: 10/06/17 13:07> Subjective - Date & Time of Evaluation Date of Evaluation: 10/06/17 Time of Evaluation: 13:07 - Subjective Subjective: Podiatry Progress Note Dr. Patterson/Dr. Owusu 81 y/o female with PMHx of CAD, Diabetes, PAD, neuropathy, and previous amputations of L great toe and R second toes seen and examined at bedside with attending Dr. Patterson regarding bilateral heel ulcerations and dried blood blister on right 3rd digit, and superficial abrasion on left 2nd digit. Patient is seen resting comfortably in bed, in NAD, and AA0x3. Patient reports that she ate breakfast this morning. Denies of any vomiting. Denies nausea, fever, shortness of breath, chest pains or chills. No other pedal complaints at this time. Denies of calf tenderness or pain Objective - Vital Signs/Intake and Output Vital Signs (last 24 hours): Temp Pulse Resp BP Pulse Ox 97.7 F 87 18 140/71 95 10/06/17 06:00 10/06/17 06:00 10/06/17 06:00 10/06/17 06:00 10/06/17 06:00 Intake and Output: 10/06/17 10/06/17 06:59 18:59 Intake Total 1480 Balance 1480 - Medications Medications: Current Medications Aspirin (Ecotrin) 81 mg PO 0800 [facility] Last Admin: 10/06/17 10:11 Dose: 81 mg Atorvastatin Calcium (Lipitor) 20 mg PO DIN [facility] Last Admin: 10/05/17 17:36 Dose: 20 mg Calcium Carbonate (Caltrate) 600 mg PO DAILY [facility] Last Admin: 10/06/17 10:11 Dose: 600 mg Cholecalciferol (Vitamin D) 1,000 intlu PO DAILY [facility] Last Admin: 10/06/17 10:11 Dose: 1,000 intlu Diphenhydramine HCl (Benadryl) 25 mg PO Q6 PRN PRN Reason: Itching / Pruritus Last Admin: 10/05/17 22:16 Dose: 25 mg Glipizide (Glucotrol) 2.5 mg PO TID [facility] Last Admin: 10/06/17 10:11 Dose: 2.5 mg Sodium Chloride (Sodium Chloride 0.45%) 1,000 mls @ 40 mls/hr IV .Q24H [facility] Last Admin: 10/05/17 20:30 Dose: 40 mls/hr Insulin Human Lispro (Humalog Med) 0 units SC ACHS [facility] PRN Reason: Protocol Last Admin: 10/06/17 11:40 Dose: Not Given Levothyroxine Sodium (Synthroid) 75 mcg PO 0600 [facility] Last Admin: 10/06/17 06:12 Dose: 75 mcg Losartan Potassium (Cozaar) 25 mg PO DAILY [facility] Last Admin: 10/06/17 10:11 Dose: 25 mg Metoprolol Tartrate (Lopressor) 25 mg PO DAILY [facility] Last Admin: 10/06/17 10:11 Dose: 25 mg Multivitamins (Thera Tab) 1 tab PO 0800 [facility] Last Admin: 10/06/17 10:11 Dose: 1 tab Nystatin (Nystop Topical Powder) 0 gm TOP BID [facility] Last Admin: 10/06/17 10:12 Dose: Not Given Potassium Chloride (Klor-Con 10) 10 meq PO DAILY [facility] Last Admin: 10/06/17 10:11 Dose: 10 meq Quetiapine Fumarate (Seroquel) 25 mg PO HS [facility] PRN Reason: Protocol Last Admin: 10/05/17 21:28 Dose: 25 mg - Labs Labs: 10/06/17 06:00 10/06/17 06:00 - Constitutional Appears: Well, Non-toxic, No Acute Distress - Extremities Exam Extremities Exam: absent: Calf Tenderness Additional comments: Lower extremity focused exam: VASC: DP and PT pulses non-palpable B/L. CFT delayed but present. Temperature gradient warm to warm. Bilateral non-pitting lower extremity edema noted. NEURO: Gross sensation absent. DERM: Full thickness ulceration located to posteromedial aspect of right heel measuring approximately 2 cm x 2 cm x 0.2 cm - wound base is mixture of fibrotic and granular tissue. No malodor present. No erythema. No purulence, no fluctuance, no undermining, no tunneling. Deep tissue injury noted to plantar posterior aspect of left heel- almost resolving. Small dried blood blister noted to the dorsum of the right 3rd digit, very superficial abrasion of left 2nd digit. No clinical signs of infection. No malodor present. No erythema. No purulence, no fluctuance, no undermining, no tunneling. ORTHO: Multiple amputated digits. No pain on palpation bilateral lower extremity. - Neurological Exam Neurological Exam: Alert, Awake, Oriented x3 - Psychiatric Exam Psychiatric exam: Normal Affect, Normal Mood Assessment and Plan - Assessment and Plan (Free Text) Assessment: 81 year old female with 1) right posterior heel ulceration secondary to DM and pressure 2) left plantar heel deep tissue injury secondary to DM and pressure 3 ) left 2nd digit superficial abrasion secondary to shoegear 4) right 3rd digit dried blood blister secondary shoegear All wounds stable with no clinical signs of infection Plan: Patient seen and evaluated at bedside Discussed plan with attending Dr. Patterson WBC=6.9, afebrile Bilaterally foot wounds cleansed with saline solution Dressed left and right heels with maxosorb and optifoam Dressed right 3rd digit dried blood blister with dsd and paper tape Left superficial abrasion left open to air dry Ordered multipodus boots to be worn at all times when in bed Patient may WBAT in [employer] shoes Thank you for allowing us to participate in patient's care Upon discharge, patient may continue current dressing regimen at home with silver, dsd to wounds Patient will follow up with Dr. Patterson within 1 week in wound care <Brinda Patterson - Last Filed: 10/09/17 16:48> Objective - Vital Signs/Intake and Output Vital Signs (last 24 hours): Temp Pulse Resp BP Pulse Ox 97.7 F 87 18 140/71 95 10/06/17 06:00 10/06/17 06:00 10/06/17 06:00 10/06/17 06:00 10/06/17 06:00 - Labs Labs: 10/06/17 06:00 10/06/17 06:00 Attending/Attestation - Attestation I have personally seen and examined this patient.: Yes I have fully participated in the care of the patient.: Yes I have reviewed all pertinent clinical information, including history, physical exam and plan: Yes
--- NOTE | 2017-10-06 16:10 | DS ---
HISTORY OF PRESENT ILLNESS: The patient is 81 years old, seen and examined, doing well. Had this morning, after some time felt funny when she took her medication. Otherwise, doing well. No nausea or vomiting. No diarrhea. PHYSICAL EXAMINATION: VITAL SIGNS: She is afebrile, pulse 87, respiration 18, blood pressure 140/71. LUNGS: Bilateral good airflow. No rhonchi or crackle. HEART: S1 and S2 audible. ABDOMEN: Soft, nontender. No rebound. No guarding. NEUROLOGICAL: The patient is awake, alert, oriented, able to communicate. EXTREMITIES: Her right foot is in the dressing, status post second toe amputation in remote past and she has dry wound on the third toe. LABORATORY EXAM: WBC 6.9, hemoglobin 10.6, hematocrit 32.5, platelet 211. Chemistry: Sodium 141, potassium 4.2, chloride 106, CO2 of 28, BUN 19, creatinine 0.9, blood sugar of 156. ASSESSMENT: 1. Intractable nausea that has resolved secondary to doxycycline. 2. Questionable gastroparesis. 3. Hypertension. 4. Insulin-dependent diabetes. 5. Morbid obesity. 6. Peripheral vascular disease, status post multiple toe amputations. PLAN: The patient is doing well. I will order for Zofran and the patient can be discharged. She will follow up with Dr. Patterson as outpatient. Liam Fernandez MD
== END 2017-10-06 17:45 | disposition home or self-care (01) ==
LOC: ED 17:25 → ERH 20:20 → 3RSO 22:55
PROVIDERS: ADMIT Internal Medicine; ATTEND Internal Medicine
DX: R11.0 Nausea (principal); T36.4X5A Adverse effect of tetracyclines, initial encounter; I10 Essential (primary) hypertension; E11.42 Type 2 diabetes mellitus with diabetic polyneuropathy; E11.51 Type 2 diabetes mellitus with diabetic peripheral angiopathy without gangrene; E11.621 Type 2 diabetes mellitus with foot ulcer; E03.9 Hypothyroidism, unspecified; E78.00 Pure hypercholesterolemia, unspecified; E78.5 Hyperlipidemia, unspecified; E86.0 Dehydration; I25.10 Atherosclerotic heart disease of native coronary artery without angina pectoris; L97.409 Non-pressure chronic ulcer of unspecified heel and midfoot with unspecified severity; L97.519 Non-pressure chronic ulcer of other part of right foot with unspecified severity; E66.01 Morbid (severe) obesity due to excess calories; Z79.4 Long term (current) use of insulin; Z89.412 Acquired absence of left great toe; Z89.421 Acquired absence of other right toe(s); Z98.61 Coronary angioplasty status; S90.424A Blister (nonthermal), right lesser toe(s), initial encounter; S90.415A Abrasion, left lesser toe(s), initial encounter; Z98.42 Cataract extraction status, left eye; Z98.41 Cataract extraction status, right eye; M19.90 Unspecified osteoarthritis, unspecified site; Z87.81 Personal history of (healed) traumatic fracture; Z88.0 Allergy status to penicillin; Z68.35 Body mass index [BMI] 35.0-35.9, adult
CPT/HCPCS: 36415; 70450; 74177; 80053; 81001; 82550; 82948; 83690; 83735; 84100; 84484; 85025; 93005; 96361; 96374; 96375; 97110; 97116; 97162; 99285; G0378; G8978; G8979; J1200; J2405; J2765; J7030; Q9967

== ENCOUNTER 2017-10-24 10:38 | Inpatient (IN) | payer MEDICARE, OTHER ==
[2017-10-24 10:38] VITALS: BMI 35.5
[2017-10-24] MEDS ORDERED: Meropenem IV 1 gm in NS 100 ML IVPB STA (11:22)
[2017-10-24] MEDS ORDERED: Vancomycin 1gm in NS 250ml 1 GM/250 ML BAG IVPB STA (11:22)
--- NOTE | 2017-10-24 11:26 | ED PDOC ---
Arrival/HPI - General Chief Complaint: Lower Extremity Problem/Injury Time Seen by Provider: 10/24/17 10:43 Historian: Patient - History of Present Illness Narrative History of Present Illness (Text): 10/24/17 11:20 81 year old female, with past medical history of CAD, Diabetes, PAD, peripheral neuropathy, and previous amputations of L great toe and R second toes, was referred to the Emergency department for evaluation of worsening right 3rd toe infection today. Patient states she was started on Vibramycin by Dr. Patterson one week ago for right 3rd toe infection however, symptoms worsened since then. Patient was seen in the wound care center today for the worsening symptoms and was referred to the Emergency department for evaluation. Patient additionally informs developing similar symptoms in the left foot and requests medical attention. Patient denies any fever, chills, nausea, vomiting, diarrhea, abdominal pain, chest pain, shortness of breath, trauma or any other complaints. PMD: Dr. Fernandez Time/Duration: Prior to Arrival Symptom Onset: Gradual Symptom Course: Unchanged Activities at Onset: Light Past Medical History - Provider Review Nursing Documentation Reviewed: Yes - Infectious Disease Hx of Infectious Diseases: None - Tetanus Immunization Tetanus Immunization: Unknown - Cardiac Hx Cardiac Disorders: Yes Hx Hypertension: Yes - Pulmonary Hx Respiratory Disorders: No - Neurological Hx Neurological Disorder: No - HEENT Hx HEENT Disorder: Yes Hx Cataracts: Yes - Renal Hx Renal Disorder: No - Endocrine/Metabolic Hx Endocrine Disorders: Yes Hx Diabetes Mellitus Type 2: Yes Hx Hypothyroidism: Yes - Hematological/Oncological Hx Blood Disorders: No - Integumentary Hx Dermatological Disorder: No - Musculoskeletal/Rheumatological Hx Musculoskeletal Disorders: Yes Hx Arthritis: Yes - Gastrointestinal Hx Gastrointestinal Disorders: No - Genitourinary/Gynecological Hx Genitourinary Disorders: Yes - Psychiatric Hx Psychophysiologic Disorder: Yes Hx Depression: Yes Hx Substance Use: No - Surgical History Hx Amputation: Yes (L 1st toe, R 2nd toe) Hx Musculoskeletal Surgery: Yes Hx Orthopedic Surgery: Yes - Anesthesia Hx Anesthesia: Yes Hx Anesthesia Reactions: (not known) Hx Malignant Hyperthermia: No - Suicidal Assessment Feels Threatened In Home Enviroment: No Family/Social History - Physician Review Nursing Documentation Reviewed: Yes Family/Social History: No Known Family HX Smoking Status: Never Smoked Hx Alcohol Use: No Hx Substance Use: No Hx Substance Use Treatment: No Allergies/Home Meds Allergies/Adverse Reactions: Allergies Penicillins Allergy (Intermediate, Verified 10/24/17 14:10) ITCHING Home Medications: Home Meds Medication Instructions Recorded Confirmed GlipiZIDE [Glucotrol] 2.5 mg PO DAILY PRN 08/01/17 10/24/17 Insulin Glargine,Hum.rec.anlog 46 unit SC DAILY 10/04/17 10/24/17 [Basaglar Kwikpen U-100] Losartan [Cozaar] 25 mg PO DAILY 10/04/17 10/24/17 Metoprolol Tartrate [Lopressor] 25 mg PO DAILY 10/04/17 10/24/17 Potassium Chloride [Klor-Con M20] 10 meq PO QOTHERDAY 10/04/17 10/24/17 GlipiZIDE [Glucotrol] 2 tab PO ACD 10/05/17 10/24/17 Review of Systems - Physician Review All systems were reviewed & negative as marked: Yes - Review of Systems Constitutional: Normal. absent: Fevers Eyes: Normal ENT: Normal Respiratory: Normal. absent: SOB Cardiovascular: Normal. absent: Chest Pain Gastrointestinal: Normal. absent: Abdominal Pain, Diarrhea, Nausea, Vomiting Genitourinary Female: Normal Musculoskeletal: Normal Skin: Ulcer, Other (right 3rd toe infection) Neurological: Normal Endocrine: Normal Hemo/Lymphatic: Normal Psychiatric: Normal Physical Exam Vital Signs Reviewed: Yes Vital Signs Temp Pulse Resp BP Pulse Ox 10/24/17 15:10 88 18 151/76 H 97 10/24/17 13:20 87 18 164/79 H 98 10/24/17 11:16 98.1 F 90 16 148/80 98 Temperature: Afebrile Blood Pressure: Normal Pulse: Regular Respiratory Rate: Normal Appearance: Positive for: Well-Appearing, Non-Toxic, Comfortable Pain Distress: None Mental Status: Positive for: Alert and Oriented X 3 - Systems Exam Head: Present: Atraumatic, Normocephalic Pupils: Present: PERRL Extroacular Muscles: Present: EOMI Conjunctiva: Present: Normal Respiratory/Chest: Present: Clear to Auscultation, Good Air Exchange. No: Respiratory Distress, Accessory Muscle Use Cardiovascular: Present: Regular Rate and Rhythm, Normal S1, S2. No: Murmurs Abdomen: No: Tenderness, Distention, Peritoneal Signs Upper Extremity: Present: Normal Inspection. No: Cyanosis, Edema Lower Extremity: Present: Normal Inspection, Neurovascularly Intact, Other ( Left great toe and Right second toes amputation noted). No: Edema Neurological: Present: GCS=15, CN II-XII Intact, Speech Normal Skin: Present: Warm, Dry, Normal Color, Other (dark spots noted on dorsal side aspect of 3rd toe with redness and warmth. Ulcer noted at back of right heel. ) . No: Rashes Psychiatric: Present: Alert, Oriented x 3, Normal Insight, Normal Concentration Medical Decision Making ED Course and Treatment: 10/24/17 11:30 Impression: 81 year old female presents to the Emergency department for worsening right 3rd toe infection. Plan: -- VBG -- EKG -- Labs -- Chest X-ray -- Meropenem -- Vancomycin -- Blood Culture -- Urine Culture -- X-ray of Right foot -- Urinalysis -- Reassess and disposition Prior Visits: Notes and results from previous visits were reviewed. Progress Notes: 10/24/17 11:43 EKG: NSR at [address] elevations, 1st degree AV block, LAD, LVH Patient was treated with antibiotics for gangrene of her toe and ulcer. Case was discussed in detail with Dr. Patterson and Dr. Fernandez. Consult placed for Dr. Oneill as per Dr. Fernandez's request. Patient's CXR showed possible infiltrate but patient does not have a cough. Is already on abx. CXR 2 view ordered and completed with no PNA. - Lab Interpretations Lab Results: 10/24/17 12:00 10/24/17 12:00 Lab Results 10/24/17 12:20: Urine Color Yellow, Urine Appearance Clear, Urine pH 6.0, Ur Specific Heber 1.010, Urine Protein Negative, Urine Glucose (UA) Negative, Urine Ketones Negative, Urine Blood Negative, Urine Nitrate Negative, Urine Bilirubin Negative, Urine Urobilinogen 0.2, Ur Leukocyte Esterase Trace H, Urine RBC 0 - 2, Urine WBC 2 - 5, Ur Epithelial Cells 4 - 5, Urine Bacteria Mod 10/24/17 12:00: TSH 3rd Generation 3.39 10/24/17 12:00: Sodium 144, Chloride 102, Potassium 5.2 H, Carbon Dioxide 32, Anion Gap 15, BUN 26 H, Creatinine 1.0, Est GFR ( Amer) > 60, Est GFR ( Non-Af Amer) 53, Random Glucose 200 H, Calcium 9.8, Phosphorus 3.5, Magnesium 2.1, Total Bilirubin 0.4, AST 39 H, ALT 20, Alkaline Phosphatase 212 H D, Total Protein 8.0, Albumin 4.0, Globulin 4.0, Albumin/Globulin Ratio 1.0 L 10/24/17 12:00: pO2 29 L, VBG pH 7.31 L, VBG pCO2 65.0 H, VBG HCO3 32.7 H, VBG Total CO2 34.7 H, VBG O2 Sat (Calc) 55.0, VBG Base Excess 4.4 H, VBG Potassium 4.5, Sodium 140.0, Chloride 103.0, Glucose 203 H, Lactate 2.0, FiO2 21.0, Venous Blood Potassium 4.5 10/24/17 12:00: PT 12.5, INR 1.09, APTT 30.8 10/24/17 12:00: WBC 9.6 D, RBC 3.90, Hgb 12.1, Hct 36.8, MCV 94.4, MCH 31.0, MCHC 32.9, RDW 13.6, Plt Count 237, MPV 11.6 H, Gran % 69.9 H, Lymph % (Auto) 21.4 L, Norman % (Auto) 6.8 H, Eos % (Auto) 1.7, Baso % (Auto) 0.2, Gran # 6.70 H , Lymph # (Auto) 2.1, Norman # (Auto) 0.7 H, Eos # (Auto) 0.2, Baso # (Auto) 0.02 - RAD Interpretation Radiology Orders: 10/24/17 11:22 CHEST PORTABLE [RAD] Stat 10/24/17 11:26 FOOT RIGHT 3 VIEWS ROUTINE [RAD] Stat Pressfitter: Radiologist - EKG Interpretation Interpreted by ED Physician: Yes Type: 12 lead EKG - Medication Orders Current Medication Orders: Discontinued Medications Meropenem (Merrem Iv 1 Gm Premix) 100 mls @ 100 mls/hr IVPB STAT STA PRN Reason: Protocol Stop: 10/24/17 12:21 Last Admin: 10/24/17 12:02 Dose: 100 mls/hr eMAR Start Stop Document 10/24/17 12:02 HI (Rec: 10/24/17 12:02 MA [id number]) Intravenous Solution Start Date 10/24/17 Start Time 12:02 Vancomycin HCl (Vancomycin 1gm) 1 gm in 250 mls @ 167 mls/hr IVPB STAT STA PRN Reason: Protocol Stop: 10/24/17 12:51 Last Admin: 10/24/17 13:14 Dose: 167 mls/hr eMAR Start Stop Document 10/24/17 13:14 HI (Rec: 10/24/17 13:15 MA [id number]) Intravenous Solution Start Date 10/24/17 Start Time 13:15 - Scribe Statement The provider has reviewed the documentation as recorded by the Scribe Roberth Crowley. All medical record entries made by the Maryibe were at my direction and personally dictated by me. I have reviewed the chart and agree that the record accurately reflects my personal performance of the history, physical exam, medical decision making, and the department course for this patient. I have also personally directed, reviewed, and agree with the discharge instructions and disposition. Disposition/Present on Arrival - Present on Arrival Any Indicators Present on Arrival: Yes History of DVT/PE: No History of Uncontrolled Diabetes: Yes Urinary Catheter: No History of Decub. Ulcer: No History Surgical Site Infection Following: None - Disposition Have Diagnosis and Disposition been Completed?: Yes Diagnosis: Osteomyelitis, Toe gangrene Disposition Time: 13:25 Patient Plan: Admission Condition: FAIR
--- NOTE | 2017-10-24 12:08 | RAD ---
Date of service: 10/24/2017 HISTORY: Sepsis Patient COMPARISON: No prior. FINDINGS: LUNGS: The lungs are well inflated. There is diffuse haziness in the right lung. The left lung is clear. PLEURA: No significant pleural effusion identified, no pneumothorax apparent. CARDIOVASCULAR: The heart is normal in size. Atherosclerotic aortic arch calcifications are present. OSSEOUS STRUCTURES: No significant abnormalities. VISUALIZED UPPER ABDOMEN: Normal. OTHER FINDINGS: None. IMPRESSION: Diffuse haziness in the right lung may represent layering pleural effusion or pulmonary edema. Follow-up PA and lateral radiographs are recommended for further evaluation.
[2017-10-24 12:11] LABS: VENOUS BLOOD GAS BASE EXCESS 4.4 mmol/L (0.0-2.0); VENOUS BLOOD GAS PO2 29 mm/Hg (30-55); VENOUS BLOOD PH 7.31 (7.32-7.43)
[2017-10-24 12:15] LABS: BASO # 0.02 K/mm3 (0.0-2.0); BASO % 0.2 % (0.0-3.0); EOS # 0.2 (0.0-0.7); EOS % 1.7 % (1.5-5.0); GRAN # 6.7 (1.4-6.5); GRAN % 69.9 % (50.0-68.0); HEMOGLOBIN 12.1 g/dL (12.0-16.0); LYMPH # 2.1 (1.2-3.4); LYMPH % 21.4 % (22.0-35.0); MEAN CELL VOLUME 94.4 fl (80.0-105.0); MEAN CORPUSCULAR HGB CONC 32.9 g/dl (31.0-37.0); MEAN PLATELET VOLUME 11.6 fl (7.0-11.0); MONO # 0.7 (0.1-0.6); MONO % 6.8 % (1.0-6.0); RBC 3.9 10^6/uL (3.5-6.1); RED CELL DISTRIBUTION WIDTH 13.6 % (11.5-14.5); WHITE BLOOD COUNT 9.6 10^3/ul (4.5-11.0)
[2017-10-24 12:22] LABS: INR 1.09; PROTHROMBIN TIME 12.5 SECONDS (9.4-12.5)
[2017-10-24 12:24] LABS: URINE BILIRUBIN NEGATIVE (NEGATIVE); URINE BLOOD NEGATIVE (NEGATIVE); URINE GLUCOSE (UA) NEGATIVE (NEGATIVE); URINE LEUKOCYTE ESTERASE TRACE Leu/uL (NEGATIVE); URINE PROTEIN NEGATIVE mg/dL (<30 mg/dL); URINE UROBILINOGEN 0.2 E.U./dL (<1 E.U./dL)
[2017-10-24 12:25] LABS: URINE APPEARANCE CLEAR (CLEAR); URINE COLOR YELLOW (YELLOW)
[2017-10-24 12:25] LABS: PARTIAL THROMBOPLASTIN TIME 30.8 Seconds (25.1-36.5)
[2017-10-24 12:29] LABS: URINE BACTERIA MOD (NEG); URINE RBC 0 - 2 /hpf (0-2)
[2017-10-24 12:36] LABS: ALT/SGPT 20 U/L (7-56); AST/SGOT 39 U/L (14-36); BLOOD UREA NITROGEN 26 mg/dL (7-21); CALCIUM 9.8 mg/dL (8.4-10.5); GFR AFRICAN-AMERICAN > 60; GFR NON-AFRICAN AMERICAN 53
--- NOTE | 2017-10-24 14:42 | RAD ---
Date of service: 10/24/2017 PROCEDURE: Right Foot Radiographs. HISTORY: r/o osteomyel COMPARISON: None. FINDINGS: BONES: Amputation of the distal 2nd metatarsal. Old fracture deformity of the 5th metatarsal. No evidence of osteomyelitis JOINTS: Normal. SOFT TISSUES: Normal. OTHER FINDINGS: None. IMPRESSION: No evidence of acute osteomyelitis
[2017-10-24 15:27] LABS: VENOUS BLOOD GAS BASE EXCESS 5.6 mmol/L (0.0-2.0); VENOUS BLOOD GAS PO2 37 mm/Hg (30-55); VENOUS BLOOD PH 7.35 (7.32-7.43)
--- NOTE | 2017-10-24 16:20 | RAD ---
HISTORY: COMPARISON: 10/24/2017. TECHNIQUE: Chest PA and lateral FINDINGS: LINES AND TUBES: None. LUNG AND PLEURA: The lungs are well inflated and clear. No pleural effusion or pneumothorax. HEART AND MEDIASTINUM: The heart is not enlarged. The hilar and mediastinal contours are within normal limits. SKELETAL STRUCTURES: The bony structures are within normal limits for the patient's age. VISUALIZED UPPER ABDOMEN: Normal. OTHER FINDINGS: None. IMPRESSION: No active pulmonary disease.
[2017-10-24] MEDS ORDERED: Pneumococcal 23-Valent Vaccine IM ONE (19:45)
[2017-10-24] MEDS: Linezolid 600 mg in D5W 300 ml 600 MG/300 ML BAG IVPB SCH (21:31)
--- NOTE | 2017-10-24 22:33 | CARD ---
APPROVED REPORT Date of service: 10/24/2017 EKG Measurement Heart [id number] <Conclusion> Sinus rhythm with 1st degree AV block Left axis deviation Moderate voltage criteria for LVH, may be normal variant Abnormal ECG
[2017-10-25] MEDS ORDERED: Levothyroxine 75 MCG TAB PO SCH (06:00)
--- NOTE | 2017-10-25 06:04 | HP ---
Copied To: Liam Fernandez MD Attending MD: Liam Fernandez MD HISTORY OF PRESENT ILLNESS: The patient is 81 years old, she was being followed by Dr. Patterson [facility]. Today when she was seen in [facility], she was found to have worsening wound infection of her right third toe. The patient was recently seen by Dr. Patterson, who started her on doxycycline a week ago, but did not improve; so, she came to the emergency room. No history of fever. No chills. No nausea, vomiting or diarrhea. No hemoptysis. No hematemesis. No abdominal pain. The patient also have bilateral heel ulcer that is also under care of Dr. Patterson. PAST MEDICAL HISTORY: Significant for: 1. Coronary artery disease, status post angioplasty. 2. Insulin-dependent diabetes. 3. Peripheral artery disease. 4. Chronic anemia. 5. Bilateral leg swelling. ALLERGIES: SHE IS ALLERGIC TO PENICILLIN. MEDICATIONS: At home, she is on aspirin 81 daily, glipizide two tablets 2.5 before dinner and 2.5 in the morning, she is on calcium carbonate, atorvastatin 20 mg at dinner time, Seroquel 25 at bedtime, potassium chloride 20 daily, Zofran 4 mg every 6 p.r.n. metoprolol 25 daily, Cozaar 25 daily, levothyroxine 75 mcg daily. SOCIAL HISTORY: She lives with her daughter. Denies smoking, drinking or alcohol use. PHYSICAL EXAMINATION: GENERAL: She is awake, alert, oriented, communicative. VITAL SIGNS: She is afebrile, pulse 92, respirations 16, blood pressure 154/91. LUNGS: Bilateral fair airflow. No rhonchi or crackle. HEART: S1 and S2 audible. ABDOMEN: Soft, obese, nontender. No rebound. No guarding. NEUROLOGICAL: The patient is awake, alert, oriented, communicative. Moves all extremities. EXTREMITIES: Right foot is in the dressing, done by Dr. Patterson. Bilateral leg +1 edema. LABORATORY EXAM: WBC is 9.6, hemoglobin 12, hematocrit 36, platelet of 237. PT 12.5, INR 1.09. Chemistry: Sodium 144, potassium 5.2, chloride 102, CO2 32, BUN 26, creatinine 1, blood sugar 200, AST 39. Alk phos 212. Urinalysis is unremarkable. ASSESSMENT: 1. Worsening foot ulcer. 2. Bilateral heel ulcer. 3. Hypertension. 4. Insulin-dependent diabetes. 5. Hyperlipidemia. 6. Coronary artery disease, status post angioplasty. PLAN: The patient is being admitted on Med-Surg floor. Start IV antibiotics. Local wound care will be done by podiatry team. We will resume her medications, monitor her blood sugar. Follow up electrolytes. We will follow up patient in a.m. Liam Fernandez MD
[2017-10-25] MEDS: Pantoprazole 40 mg EC Tab PO SCH (06:12)
[2017-10-25] MEDS: Levothyroxine 75 MCG TAB PO SCH (06:12)
[2017-10-25 07:01] LABS: BASO # 0.02 K/mm3 (0.0-2.0); BASO % 0.3 % (0.0-3.0); EOS # 0.3 (0.0-0.7); EOS % 4.9 % (1.5-5.0); GRAN # 3.61 (1.4-6.5); GRAN % 53.6 % (50.0-68.0); HEMOGLOBIN 10.2 g/dL (12.0-16.0); LYMPH % 29.8 % (22.0-35.0); MEAN CELL VOLUME 92.9 fl (80.0-105.0); MEAN CORPUSCULAR HEMOGLOBIN 30.4 pg (25.0-35.0); MEAN CORPUSCULAR HGB CONC 32.7 g/dl (31.0-37.0); MEAN PLATELET VOLUME 11.5 fl (7.0-11.0); MONO # 0.8 (0.1-0.6); MONO % 11.4 % (1.0-6.0); RBC 3.36 10^6/uL (3.5-6.1); RED CELL DISTRIBUTION WIDTH 13.8 % (11.5-14.5); WHITE BLOOD COUNT 6.7 10^3/ul (4.5-11.0)
[2017-10-25] MEDS ORDERED: Multivitamin Therapeutic Tab PO SCH (08:00)
[2017-10-25] MEDS: Multivitamin Therapeutic Tab PO SCH (08:09)
[2017-10-25] MEDS: Insulin Detemir 100 units/ml Vial (Levemir) SC SCH ×2 (08:09→21:40)
[2017-10-25 08:16] LABS: CALCIUM 8.7 mg/dL (8.4-10.5)
[2017-10-25 08:17] LABS: ALB/GLOB RATIO 0.9 (1.1-1.8); ALBUMIN 3.2 g/dL (3.0-4.8)
[2017-10-25] MEDS: Cholecalciferol 1,000 INTLU TAB PO SCH (09:17)
[2017-10-25] MEDS: Linezolid 600 mg in D5W 300 ml 600 MG/300 ML BAG IVPB SCH (09:18)
[2017-10-25] MEDS ORDERED: Cholecalciferol 1,000 INTLU TAB PO SCH (10:00)
--- NOTE | 2017-10-25 11:20 | CP.PCM.CON ---
<Samantha William - Last Filed: 10/25/17 11:31> History of Present Illness - History of Present Illness History of Present Illness: PGY-3 infectious disease consult for Dr. Garcia's service 81 yo female with past medical history of CAD, Diabetes, PAD, peripheral neuropathy, and previous amputations of the left great toe and right second toe , presented to the Emergency department for evaluation of worsening right 3rd toe infection. Patient states she first noticed a small infectious of the right second few months ago and was seeing podiatry. She states that despite this the ulcer continued to worsen. She was started on Vibramycin by podiatry about one week however, symptoms worsened since then. Patient was seen in the wound care center and was referred to the Emergency department for evaluation. Patient states that she had similar symptoms in the left foot with her left 2nd toes also appearing red. She also reports previous heel ulcer of both feet, and states that her continuity manager told her that the right heel ulcer is worsening. Patient denies any pain, stating that both feet ore numb. Patient denies any fever, chills, nausea, vomiting, diarrhea, abdominal pain, chest pain, shortness of breath, trauma or any other complaints. PMH: CAD, PAD, Hypercholesterolemia, HTN, diabetes on insulin, hypothyriodism, GERD, peripheral neuropathy PSH: Amputation of left 1st toes, right 2nd toe, left hip repair, carpal tunnel and cubital tunnel, cataract extraction social history: denies smoking or illicit drug use, occasional alcohol use allergy: penicillins- rash and pruritus family history: father had diabetes require below knee amputation Review of Systems - Review of Systems All systems: reviewed and no additional remarkable complaints except Past Patient History - Infectious Disease Hx of Infectious Diseases: None - Tetanus Immunizations Tetanus Immunization: Unknown - Past Medical History & Family History Past Medical History?: Yes - Past Social History Smoking Status: Never Smoked - CARDIAC Hx Cardiac Disorders: Yes (CAD) Hx Hypercholesterolemia: Yes Hx Hypertension: Yes - PULMONARY Hx Respiratory Disorders: No - NEUROLOGICAL Hx Neurological Disorder: Yes (PHERIPHERAL NEUROPATHY) - HEENT Hx HEENT Problems: Yes Hx Cataracts: Yes - RENAL Hx Chronic Kidney Disease: No - ENDOCRINE/METABOLIC Hx Endocrine Disorders: Yes Hx Diabetes Mellitus Type 2: Yes Hx Hypothyroidism: Yes - HEMATOLOGICAL/ONCOLOGICAL Hx Blood Disorders: No - INTEGUMENTARY Hx Dermatological Problems: Yes Other/Comment: 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 BILATERAL HEEL PRESSURE ULCER STAGE 2. RIGHT 3RD TOE GANGRENE-DIABETIC FOOT ULCER. L GREAT TOE AND RIGHT 2ND TOE AMPUATED. - MUSCULOSKELETAL/RHEUMATOLOGICAL Hx Musculoskeletal Disorders: Yes (CARPAL TUNNEL AND CUBITAL TUNNEL-CONTRACTED FINGERS) Hx Arthritis: Yes Hx Falls: Yes Hx Fractures: Yes (L HIP FX) Hx Unsteady Gait: Yes (WHEELCHAIR BOUDN) - GASTROINTESTINAL Hx Gastrointestinal Disorders: No - GENITOURINARY/GYNECOLOGICAL Hx Genitourinary Disorders: Yes Hx Incontinence: Yes - PSYCHIATRIC Hx Psychophysiologic Disorder: Yes Hx Depression: Yes Hx Substance Use: No - SURGICAL HISTORY Hx Surgeries: Yes Hx Amputation: Yes (L 1st toe, R 2nd toe) Hx Cardiac Catheterization: Yes Hx Musculoskeletal Surgery: Yes Hx Orthopedic Surgery: Yes - ANESTHESIA Hx Anesthesia: Yes Hx Anesthesia Reactions: (not known) Hx Malignant Hyperthermia: No Meds Allergies/Adverse Reactions: Allergies Allergy/AdvReac Type Severity Reaction Status Date / Time Penicillins Allergy Intermediate ITCHING Verified 10/24/17 14:10 - Medications Medications: Current Medications Acetaminophen (Tylenol 325mg Tab) 650 mg PO Q6H PRN PRN Reason: Fever >100.4 F Aspirin (Ecotrin) 81 mg PO 0800 [facility] Last Admin: 10/25/17 08:09 Dose: 81 mg Atorvastatin Calcium (Lipitor) 20 mg PO DIN [facility] Last Admin: 10/24/17 22:13 Dose: 20 mg Calcium Carbonate (Caltrate) 600 mg PO DAILY [facility] Last Admin: 10/25/17 09:17 Dose: 600 mg Cholecalciferol (Vitamin D) 1,000 intlu PO DAILY [facility] Last Admin: 10/25/17 09:17 Dose: 1,000 intlu Glipizide (Glucotrol) 2.5 mg PO ACB [facility] Last Admin: 10/25/17 08:09 Dose: 2.5 mg Glipizide (Glucotrol) 5 mg PO ACD [facility] Linezolid (Zyvox 600mg/300ml D5w) 600 mg in 300 mls @ 200 mls/hr IVPB Q12 [facility] PRN Reason: Protocol Stop: 10/31/17 22:01 Last Admin: 10/25/17 09:18 Dose: 200 mls/hr Insulin Detemir (Levemir) 23 unit SC ACBHS [facility] Last Admin: 10/25/17 08:09 Dose: 23 u Levothyroxine Sodium (Synthroid) 75 mcg PO 0600 [facility] Last Admin: 10/25/17 06:12 Dose: 75 mcg Losartan Potassium (Cozaar) 25 mg PO 1800 [facility] Meloxicam (Mobic) 15 mg PO DAILY [facility] Last Admin: 10/25/17 10:56 Dose: 15 mg Metoprolol Tartrate (Lopressor) 25 mg PO DAILY [facility] Last Admin: 10/25/17 09:17 Dose: 25 mg Multivitamins (Thera Tab) 1 tab PO 0800 [facility] Last Admin: 10/25/17 08:09 Dose: 1 tab Nystatin (Mycostatin Cream) 0 ea TOP BID [facility] Ondansetron HCl (Zofran Tab) 4 mg PO Q8H PRN PRN Reason: Nausea/Vomiting Pantoprazole Sodium (Protonix Ec Tab) 40 mg PO 0600 [facility] Last Admin: 10/25/17 06:12 Dose: 40 mg Potassium Chloride (K-Dur 20 Meq Er Tab) 10 meq PO QOTHERDAY [facility] Quetiapine Fumarate (Seroquel) 25 mg PO HS [facility] PRN Reason: Protocol Last Admin: 10/24/17 21:31 Dose: 25 mg Physical Exam - Constitutional Appears: No Acute Distress - Head Exam Head Exam: ATRAUMATIC, NORMOCEPHALIC - Eye Exam Eye Exam: EOMI - ENT Exam ENT Exam: Mucous Membranes Moist - Respiratory Exam Respiratory Exam: Clear to Auscultation Bilateral, NORMAL BREATHING PATTERN. absent: Rhonchi, Wheezes, Respiratory Distress - Cardiovascular Exam Cardiovascular Exam: REGULAR RHYTHM, +S1, +S2. absent: Bradycardia, Tachycardia , Diastolic murmur, Systolic Murmur - GI/Abdominal Exam GI & Abdominal Exam: Normal Bowel Sounds, Soft. absent: Distended, Firm, Guarding, Tenderness - Extremities Exam Additional comments: right foot ulcer of 3rd toe, no erythema, heel ulcer draining left 2nd toe erythema, left heel ulcer no erythema, no drainage Results - Vital Signs Recent Vital Signs: Last Vital Signs Temp 97.6 F 10/25/17 08:50 Pulse 73 10/25/17 09:17 Resp 18 10/25/17 08:50 BP 106/53 L 10/25/17 09:17 Pulse Ox 96 10/25/17 08:50 - Labs Result Diagrams: 10/25/17 06:20 10/25/17 06:20 Labs: Laboratory Results - last 24 hr 10/24/17 10/24/17 10/24/17 15:23 18:00 21:48 WBC RBC Hgb Hct MCV MCH MCHC RDW Plt Count MPV Gran % Lymph % (Auto) [place] % (Auto) Eos % (Auto) Baso % (Auto) Gran # Lymph # (Auto) [place] # (Auto) Eos # (Auto) Baso # (Auto) pO2 37 VBG pH 7.35 VBG pCO2 60.0 VBG HCO3 33.1 H VBG Total CO2 34.9 H VBG O2 Sat (Calc) 74.4 H VBG Base Excess 5.6 H VBG Potassium 4.9 Sodium 142.0 Chloride 105.0 Glucose 130 H Lactate 1.3 FiO2 21.0 Potassium Carbon Dioxide Anion Gap BUN Creatinine Est GFR ( Amer) Est GFR (Non-Af Amer) POC Glucose (mg/dL) 150 H 221 H Random Glucose Calcium Total Bilirubin AST ALT Alkaline Phosphatase Total Protein Albumin Globulin Albumin/Globulin Ratio Venous Blood Potassium 4.9 10/25/17 10/25/17 10/25/17 06:20 06:20 07:28 WBC 6.7 D RBC 3.36 L Hgb 10.2 L Hct 31.2 L MCV 92.9 MCH 30.4 MCHC 32.7 RDW 13.8 Plt Count 206 MPV 11.5 H Gran % 53.6 Lymph % (Auto) 29.8 [place] % (Auto) 11.4 H Eos % (Auto) 4.9 Baso % (Auto) 0.3 Gran # 3.61 Lymph # (Auto) 2.0 [place] # (Auto) 0.8 H Eos # (Auto) 0.3 Baso # (Auto) 0.02 pO2 VBG pH VBG pCO2 VBG HCO3 VBG Total CO2 VBG O2 Sat (Calc) VBG Base Excess VBG Potassium Sodium 140 Chloride 103 Glucose Lactate FiO2 Potassium 4.3 Carbon Dioxide 28 Anion Gap 13 BUN 29 H Creatinine 1.2 Est GFR ( Amer) 52 Est GFR (Non-Af Amer) 43 POC Glucose (mg/dL) 104 Random Glucose 129 H Calcium 8.7 Total Bilirubin 0.4 AST 27 ALT 25 Alkaline Phosphatase 148 H D Total Protein 6.6 Albumin 3.2 Globulin 3.4 Albumin/Globulin Ratio 0.9 L Venous Blood Potassium Assessment & Plan - Assessment and Plan (Free Text) Assessment: 81 yo female with past medical history of CAD, Diabetes, PAD, peripheral neuropathy, and previous amputations of the left great toe and right second toe , presented with worsening right 3rd toe infection and previous heel ulcers. Wound culture from 10/17/17 grow MRSA. Patient is afebrile without leukocytosis. foot xray did not show evidence of osteomyelitis. Will start patient on IV linezolid. Podiatry is consulted. Consider MRI to rule out oesteomyeltitis and arterial dopplers due to history of PAD. Will order CRP. 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 Will follow up MRSA screen of the nares. follow up wound, blood and urine cultures. case reviewed and discussed with attending, Dr. Garcia <Virgil Garcia - Last Filed: 10/25/17 19:32> Meds - Medications Medications: Current Medications Acetaminophen (Tylenol 325mg Tab) 650 mg PO Q6H PRN PRN Reason: Fever >100.4 F Aspirin (Ecotrin) 81 mg PO 0800 [facility] Last Admin: 10/25/17 08:09 Dose: 81 mg Atorvastatin Calcium (Lipitor) 20 mg PO DIN [facility] Last Admin: 10/25/17 19:04 Dose: 20 mg Calcium Carbonate (Caltrate) 600 mg PO DAILY [facility] Last Admin: 10/25/17 09:17 Dose: 600 mg Cholecalciferol (Vitamin D) 1,000 intlu PO DAILY [facility] Last Admin: 10/25/17 09:17 Dose: 1,000 intlu Glipizide (Glucotrol) 2.5 mg PO ACB [facility] Last Admin: 10/25/17 08:09 Dose: 2.5 mg Glipizide (Glucotrol) 5 mg PO ACD [facility] Last Admin: 10/25/17 19:04 Dose: 5 mg Insulin Detemir (Levemir) 23 unit SC ACBHS [facility] Last Admin: 10/25/17 08:09 Dose: 23 u Levothyroxine Sodium (Synthroid) 75 mcg PO 0600 [facility] Last Admin: 10/25/17 06:12 Dose: 75 mcg Linezolid (Zyvox) 600 mg PO BID [facility] PRN Reason: Protocol Losartan Potassium (Cozaar) 25 mg PO 1800 [facility] Last Admin: 10/25/17 19:05 Dose: 25 mg Meloxicam (Mobic) 15 mg PO DAILY [facility] Last Admin: 10/25/17 10:56 Dose: 15 mg Metoprolol Tartrate (Lopressor) 25 mg PO DAILY [facility] Last Admin: 10/25/17 09:17 Dose: 25 mg Multivitamins (Thera Tab) 1 tab PO 0800 [facility] Last Admin: 10/25/17 08:09 Dose: 1 tab Nystatin (Mycostatin Cream) 0 ea TOP BID [facility] Last Admin: 10/25/17 19:11 Dose: Not Given Ondansetron HCl (Zofran Tab) 4 mg PO Q8H PRN PRN Reason: Nausea/Vomiting Pantoprazole Sodium (Protonix Ec Tab) 40 mg PO 0600 [facility] Last Admin: 10/25/17 06:12 Dose: 40 mg Potassium Chloride (K-Dur 20 Meq Er Tab) 10 meq PO QOTHERDAY [facility] Quetiapine Fumarate (Seroquel) 25 mg PO HS [facility] PRN Reason: Protocol Last Admin: 10/24/17 21:31 Dose: 25 mg Results - Vital Signs Recent Vital Signs: Last Vital Signs Temp 97.8 F 10/25/17 17:30 Pulse 78 10/25/17 19:05 Resp 19 10/25/17 17:30 BP 138/65 10/25/17 19:05 Pulse Ox 97 10/25/17 17:30 - Labs Result Diagrams: 10/25/17 06:20 10/25/17 06:20 Labs: Laboratory Results - last 24 hr 10/24/17 10/24/17 10/25/17 18:00 21:48 06:20 WBC 6.7 D RBC 3.36 L Hgb 10.2 L Hct 31.2 L MCV 92.9 MCH 30.4 MCHC 32.7 RDW 13.8 Plt Count 206 MPV 11.5 H Gran % 53.6 Lymph % (Auto) 29.8 [place] % (Auto) 11.4 H Eos % (Auto) 4.9 Baso % (Auto) 0.3 Gran # 3.61 Lymph # (Auto) 2.0 [place] # (Auto) 0.8 H Eos # (Auto) 0.3 Baso # (Auto) 0.02 Sodium Potassium Chloride Carbon Dioxide Anion Gap BUN Creatinine Est GFR ( Amer) Est GFR (Non-Af Amer) POC Glucose (mg/dL) 150 H 221 H Random Glucose Calcium Total Bilirubin AST ALT Alkaline Phosphatase C-Reactive Protein Total Protein Albumin Globulin Albumin/Globulin Ratio 10/25/17 10/25/17 10/25/17 06:20 07:28 11:00 WBC RBC Hgb Hct MCV MCH MCHC RDW Plt Count MPV Gran % Lymph % (Auto) [place] % (Auto) Eos % (Auto) Baso % (Auto) Gran # Lymph # (Auto) [place] # (Auto) Eos # (Auto) Baso # (Auto) Sodium 140 Potassium 4.3 Chloride 103 Carbon Dioxide 28 Anion Gap 13 BUN 29 H Creatinine 1.2 Est GFR ( Amer) 52 Est GFR (Non-Af Amer) 43 POC Glucose (mg/dL) 104 Random Glucose 129 H Calcium 8.7 Total Bilirubin 0.4 AST 27 ALT 25 Alkaline Phosphatase 148 H D C-Reactive Protein 9.40 Total Protein 6.6 Albumin 3.2 Globulin 3.4 Albumin/Globulin Ratio 0.9 L 10/25/17 11:21 WBC RBC Hgb Hct MCV MCH MCHC RDW Plt Count MPV Gran % Lymph % (Auto) [place] % (Auto) Eos % (Auto) Baso % (Auto) Gran # Lymph # (Auto) [place] # (Auto) Eos # (Auto) Baso # (Auto) Sodium Potassium Chloride Carbon Dioxide Anion Gap BUN Creatinine Est GFR ( Amer) Est GFR (Non-Af Amer) POC Glucose (mg/dL) 237 H Random Glucose Calcium Total Bilirubin AST ALT Alkaline Phosphatase C-Reactive Protein Total Protein Albumin Globulin Albumin/Globulin Ratio Assessment & Plan - Assessment and Plan (Free Text) Assessment: Infectious Diseases Attending Physician Addendum/ Attestation Patient seen and examined, discussed with director medical surgical. I have reviewed the pertinent clinical information for the patient. I agree with the above findings , assessment and plan. In addition, we have started the patient on Zyvox for right foot skin and skin structure infection, growing MRSA on the 3rd toe, R/O osteomyelitis, R/O PAD. Discussed with Dr. Owusu - will check MRI of right foot , check MCKENNA's and will monitor clinically.
[2017-10-25] MEDS: Nystatin 100,000 Units/gm Cream(15 gm) TOP SCH ×2 (12:32→19:11)
--- NOTE | 2017-10-25 16:04 | CP.PCM.CON ---
<Wayne Flores - Last Filed: 10/25/17 15:55> History of Present Illness - History of Present Illness History of Present Illness: Podiatry Consult note for Dr. Owusu 81F with PMHx CAD, Diabetes, PAD, peripheral neuropathy, and previous amputations of the left great toe and right second toe seen at bedside for multiple b/l LE wounds. Patient is well known to our service and was sent to ED yesterday by Dr. Patterson for infected right third toe infection, right heel ulcer and left second digit ulceration. Patient states that she has noticed the area surrounding her right third digit ulceration getting increasingly red over the last few days. She is AAO x 3 and NAD at time of visit. Denies any further pedal complaints at this time. Denies any recent N/V/F/C/CP/SOB/D/posterior calf pain when squeezed. Review of Systems - Review of Systems All systems: reviewed and no additional remarkable complaints except Review of Systems: as per HPI Past Patient History - Infectious Disease Hx of Infectious Diseases: None - Tetanus Immunizations Tetanus Immunization: Unknown - Past Medical History & Family History Past Medical History?: Yes - Past Social History Smoking Status: Never Smoked - CARDIAC Hx Cardiac Disorders: Yes (CAD) Hx Hypercholesterolemia: Yes Hx Hypertension: Yes - PULMONARY Hx Respiratory Disorders: No - NEUROLOGICAL Hx Neurological Disorder: Yes (PHERIPHERAL NEUROPATHY) - HEENT Hx HEENT Problems: Yes Hx Cataracts: Yes - RENAL Hx Chronic Kidney Disease: No - ENDOCRINE/METABOLIC Hx Endocrine Disorders: Yes Hx Diabetes Mellitus Type 2: Yes Hx Hypothyroidism: Yes - HEMATOLOGICAL/ONCOLOGICAL Hx Blood Disorders: No - INTEGUMENTARY Hx Dermatological Problems: Yes Other/Comment: MASD-UNDER BREAST SKIN FOLD AND STOMACH FOLD. BILATERAL HEEL PRESSURE ULCER STAGE 2. RIGHT 3RD TOE GANGRENE-DIABETIC FOOT ULCER. L GREAT TOE AND RIGHT 2ND TOE AMPUATED. - MUSCULOSKELETAL/RHEUMATOLOGICAL Hx Musculoskeletal Disorders: Yes (CARPAL TUNNEL AND CUBITAL TUNNEL-CONTRACTED FINGERS) Hx Arthritis: Yes Hx Falls: Yes Hx Fractures: Yes (L HIP FX) Hx Unsteady Gait: Yes (WHEELCHAIR BOUDN) - GASTROINTESTINAL Hx Gastrointestinal Disorders: No - GENITOURINARY/GYNECOLOGICAL Hx Genitourinary Disorders: Yes Hx Incontinence: Yes - PSYCHIATRIC Hx Psychophysiologic Disorder: Yes Hx Depression: Yes Hx Substance Use: No - SURGICAL HISTORY Hx Surgeries: Yes Hx Amputation: Yes (L 1st toe, R 2nd toe) Hx Cardiac Catheterization: Yes Hx Musculoskeletal Surgery: Yes Hx Orthopedic Surgery: Yes - ANESTHESIA Hx Anesthesia: Yes Hx Anesthesia Reactions: (not known) Hx Malignant Hyperthermia: No Meds Allergies/Adverse Reactions: Allergies Allergy/AdvReac Type Severity Reaction Status Date / Time Penicillins Allergy Intermediate ITCHING Verified 10/24/17 14:10 - Medications Medications: Current Medications Acetaminophen (Tylenol 325mg Tab) 650 mg PO Q6H PRN PRN Reason: Fever >100.4 F Aspirin (Ecotrin) 81 mg PO 0800 [facility] Last Admin: 10/25/17 08:09 Dose: 81 mg Atorvastatin Calcium (Lipitor) 20 mg PO DIN [facility] Last Admin: 10/24/17 22:13 Dose: 20 mg Calcium Carbonate (Caltrate) 600 mg PO DAILY [facility] Last Admin: 10/25/17 09:17 Dose: 600 mg Cholecalciferol (Vitamin D) 1,000 intlu PO DAILY [facility] Last Admin: 10/25/17 09:17 Dose: 1,000 intlu Glipizide (Glucotrol) 2.5 mg PO ACB [facility] Last Admin: 10/25/17 08:09 Dose: 2.5 mg Glipizide (Glucotrol) 5 mg PO ACD [facility] Linezolid (Zyvox 600mg/300ml D5w) 600 mg in 300 mls @ 200 mls/hr IVPB Q12 [facility] PRN Reason: Protocol Stop: 10/31/17 22:01 Last Admin: 10/25/17 09:18 Dose: 200 mls/hr Insulin Detemir (Levemir) 23 unit SC ACBHS [facility] Last Admin: 10/25/17 08:09 Dose: 23 u Levothyroxine Sodium (Synthroid) 75 mcg PO 0600 [facility] Last Admin: 10/25/17 06:12 Dose: 75 mcg Losartan Potassium (Cozaar) 25 mg PO 1800 [facility] Meloxicam (Mobic) 15 mg PO DAILY [facility] Last Admin: 10/25/17 10:56 Dose: 15 mg Metoprolol Tartrate (Lopressor) 25 mg PO DAILY [facility] Last Admin: 10/25/17 09:17 Dose: 25 mg Multivitamins (Thera Tab) 1 tab PO 0800 [facility] Last Admin: 10/25/17 08:09 Dose: 1 tab Nystatin (Mycostatin Cream) 0 ea TOP BID [facility] Last Admin: 10/25/17 12:32 Dose: 1 applic Ondansetron HCl (Zofran Tab) 4 mg PO Q8H PRN PRN Reason: Nausea/Vomiting Pantoprazole Sodium (Protonix Ec Tab) 40 mg PO 0600 [facility] Last Admin: 10/25/17 06:12 Dose: 40 mg Potassium Chloride (K-Dur 20 Meq Er Tab) 10 meq PO QOTHERDAY [facility] Quetiapine Fumarate (Seroquel) 25 mg PO HS [facility] PRN Reason: Protocol Last Admin: 10/24/17 21:31 Dose: 25 mg Physical Exam - Constitutional Appears: Well, Non-toxic, No Acute Distress - Extremities Exam Additional comments: LE focused exam Vasc: DP/PT pulses faintly palpable 1/4 b/l. Skin temperature warm to warm from proximal to distal. CFT < 3 seconds to all digits b/l. Moderate edema noted to right third digit and left second digit. Neuro: Epicritic and protective sensation grossly absent b/l Derm: Right third digit - 1 cm x 1 cm x 0.3 cm dorsal third digit ulceration noted. Mild periwound erythema, minimal serous drainage, no malodor, no purulence, negative probe to bone, no tracking/tunneling/undermining noted. No other clinical signs of infection noted Right heel - 3 cm x 2 cm x 0.3 cm posterior right heel ulceration. Mild periwound erythema, minimal serous drainage, no malodor, no purulence, negative probe to bone, no tracking/tunneling/undermining noted. No other clinical signs of infection noted Left second digit - 0.1 cm x 0.1 cm x 0.1 cm dorsal second digit ulceration. Mild periwound erythema, minimal serous drainage, no malodor, no purulence, negative probe to bone, no tracking/tunneling/undermining noted. No other clinical signs of infection noted MSK: No POP to any ulceration site. ROM WNL at all major joints for age. MMT 4/ 5 in all major muscle groups. No other gross deformities noted - Neurological Exam Neurological exam: Alert, Oriented x3 - Psychiatric Exam Psychiatric exam: Normal Affect, Normal Mood Results - Vital Signs Recent Vital Signs: Last Vital Signs Temp 97.6 F 10/25/17 08:50 Pulse 73 10/25/17 09:17 Resp 18 08/07/18 08:50 BP 106/53 L 10/25/17 09:17 Pulse Ox 96 10/25/17 08:50 - Labs Result Diagrams: 10/25/17 06:20 10/25/17 06:20 Labs: Laboratory Results - last 24 hr 10/24/17 10/24/17 10/25/17 18:00 21:48 06:20 WBC 6.7 D RBC 3.36 L Hgb 10.2 L Hct 31.2 L MCV 92.9 MCH 30.4 MCHC 32.7 RDW 13.8 Plt Count 206 MPV 11.5 H Gran % 53.6 Lymph % (Auto) 29.8 Milam % (Auto) 11.4 H Eos % (Auto) 4.9 Baso % (Auto) 0.3 Gran # 3.61 Lymph # (Auto) 2.0 Milam # (Auto) 0.8 H Eos # (Auto) 0.3 Baso # (Auto) 0.02 Sodium Potassium Chloride Carbon Dioxide Anion Gap BUN Creatinine Est GFR ( Amer) Est GFR (Non-Af Amer) POC Glucose (mg/dL) 150 H 221 H Random Glucose Calcium Total Bilirubin AST ALT Alkaline Phosphatase Total Protein Albumin Globulin Albumin/Globulin Ratio 10/25/17 10/25/17 10/25/17 06:20 07:28 11:21 WBC RBC Hgb Hct MCV MCH MCHC RDW Plt Count MPV Gran % Lymph % (Auto) Milam % (Auto) Eos % (Auto) Baso % (Auto) Gran # Lymph # (Auto) Milam # (Auto) Eos # (Auto) Baso # (Auto) Sodium 140 Potassium 4.3 Chloride 103 Carbon Dioxide 28 Anion Gap 13 BUN 29 H Creatinine 1.2 Est GFR ( Amer) 52 Est GFR (Non-Af Amer) 43 POC Glucose (mg/dL) 104 237 H Random Glucose 129 H Calcium 8.7 Total Bilirubin 0.4 AST 27 ALT 25 Alkaline Phosphatase 148 H D Total Protein 6.6 Albumin 3.2 Globulin 3.4 Albumin/Globulin Ratio 0.9 L Assessment & Plan - Assessment and Plan (Free Text) Assessment: 81F seen for multiple b/l LE wounds Plan: Patient seen and evaluated with Dr. Owusu Afebrile, absent leukocytosis Continue IV abx per ID F/u Wound cx Right foot XR: No evidence of acute osteomyelitis F/u MRI right foot F/u LE arterial duplex Wounds cleansed with normal saline Wounds dressed with Poly-mem pink, DSD No plan for surgical intervention at this time Podiatry will continue to followl while patient in house - Date & Time Date: 10/25/17 Time: 16:08 <TremainemikejarvisSunshinetae - Last Filed: 10/25/17 16:49> Meds - Medications Medications: Current Medications Acetaminophen (Tylenol 325mg Tab) 650 mg PO Q6H PRN PRN Reason: Fever >100.4 F Aspirin (Ecotrin) 81 mg PO 0800 [facility] Last Admin: 10/25/17 08:09 Dose: 81 mg Atorvastatin Calcium (Lipitor) 20 mg PO DIN [facility] Last Admin: 10/24/17 22:13 Dose: 20 mg Calcium Carbonate (Caltrate) 600 mg PO DAILY [facility] Last Admin: 10/25/17 09:17 Dose: 600 mg Cholecalciferol (Vitamin D) 1,000 intlu PO DAILY [facility] Last Admin: 10/25/17 09:17 Dose: 1,000 intlu Glipizide (Glucotrol) 2.5 mg PO ACB [facility] Last Admin: 10/25/17 08:09 Dose: 2.5 mg Glipizide (Glucotrol) 5 mg PO ACD [facility] Linezolid (Zyvox 600mg/300ml D5w) 600 mg in 300 mls @ 200 mls/hr IVPB Q12 [facility] PRN Reason: Protocol Stop: 10/31/17 22:01 Last Admin: 10/25/17 09:18 Dose: 200 mls/hr Insulin Detemir (Levemir) 23 unit SC ACBHS [facility] Last Admin: 10/25/17 08:09 Dose: 23 u Levothyroxine Sodium (Synthroid) 75 mcg PO 0600 [facility] Last Admin: 10/25/17 06:12 Dose: 75 mcg Losartan Potassium (Cozaar) 25 mg PO 1800 [facility] Meloxicam (Mobic) 15 mg PO DAILY [facility] Last Admin: 10/25/17 10:56 Dose: 15 mg Metoprolol Tartrate (Lopressor) 25 mg PO DAILY [facility] Last Admin: 10/25/17 09:17 Dose: 25 mg Multivitamins (Thera Tab) 1 tab PO 0800 [facility] Last Admin: 10/25/17 08:09 Dose: 1 tab Nystatin (Mycostatin Cream) 0 ea TOP BID [facility] Last Admin: 10/25/17 12:32 Dose: 1 applic Ondansetron HCl (Zofran Tab) 4 mg PO Q8H PRN PRN Reason: Nausea/Vomiting Pantoprazole Sodium (Protonix Ec Tab) 40 mg PO 0600 [facility] Last Admin: 10/25/17 06:12 Dose: 40 mg Potassium Chloride (K-Dur 20 Meq Er Tab) 10 meq PO QOTHERDAY [facility] Quetiapine Fumarate (Seroquel) 25 mg PO HS [facility] PRN Reason: Protocol Last Admin: 10/24/17 21:31 Dose: 25 mg Results - Vital Signs Recent Vital Signs: Last Vital Signs Temp 97.6 F 10/25/17 08:50 Pulse 73 10/25/17 09:17 Resp 18 10/25/17 08:50 BP 106/53 L 10/25/17 09:17 Pulse Ox 96 10/25/17 08:50 - Labs Result Diagrams: 10/25/17 06:20 10/25/17 06:20 Labs: Laboratory Results - last 24 hr 10/24/17 10/24/17 10/25/17 18:00 21:48 06:20 WBC 6.7 D RBC 3.36 L Hgb 10.2 L Hct 31.2 L MCV 92.9 MCH 30.4 MCHC 32.7 RDW 13.8 Plt Count 206 MPV 11.5 H Gran % 53.6 Lymph % (Auto) 29.8 Milam % (Auto) 11.4 H Eos % (Auto) 4.9 Baso % (Auto) 0.3 Gran # 3.61 Lymph # (Auto) 2.0 Milam # (Auto) 0.8 H Eos # (Auto) 0.3 Baso # (Auto) 0.02 Sodium Potassium Chloride Carbon Dioxide Anion Gap BUN Creatinine Est GFR ( Amer) Est GFR (Non-Af Amer) POC Glucose (mg/dL) 150 H 221 H Random Glucose Calcium Total Bilirubin AST ALT Alkaline Phosphatase C-Reactive Protein Total Protein Albumin Globulin Albumin/Globulin Ratio 10/25/17 10/25/17 10/25/17 06:20 07:28 11:00 WBC RBC Hgb Hct MCV MCH MCHC RDW Plt Count MPV Gran % Lymph % (Auto) Milam % (Auto) Eos % (Auto) Baso % (Auto) Gran # Lymph # (Auto) Milam # (Auto) Eos # (Auto) Baso # (Auto) Sodium 140 Potassium 4.3 Chloride 103 Carbon Dioxide 28 Anion Gap 13 BUN 29 H Creatinine 1.2 Est GFR ( Amer) 52 Est GFR (Non-Af Amer) 43 POC Glucose (mg/dL) 104 Random Glucose 129 H Calcium 8.7 Total Bilirubin 0.4 AST 27 ALT 25 Alkaline Phosphatase 148 H D C-Reactive Protein 9.40 Total Protein 6.6 Albumin 3.2 Globulin 3.4 Albumin/Globulin Ratio 0.9 L 10/25/17 11:21 WBC RBC Hgb Hct MCV MCH MCHC RDW Plt Count MPV Gran % Lymph % (Auto) Milam % (Auto) Eos % (Auto) Baso % (Auto) Gran # Lymph # (Auto) Milam # (Auto) Eos # (Auto) Baso # (Auto) Sodium Potassium Chloride Carbon Dioxide Anion Gap BUN Creatinine Est GFR ( Amer) Est GFR (Non-Af Amer) POC Glucose (mg/dL) 237 H Random Glucose Calcium Total Bilirubin AST ALT Alkaline Phosphatase C-Reactive Protein Total Protein Albumin Globulin Albumin/Globulin Ratio Attending/Attestation - Attestation I have personally seen and examined this patient.: Yes I have fully participated in the care of the patient.: Yes I have reviewed all pertinent clinical information: Yes
--- NOTE | 2017-10-25 18:10 | PN ---
Copied To: Liam Fernandez MD Attending MD: Liam Fernandez MD DATE: 10/25/2017 SUBJECTIVE: The patient is 81 years old, seen and examined, lying in bed, seems to be comfortable. Complained of bilateral hand pain, especially when she gets up in the morning. Complained of having rash under the breast. No significant pain at the surgical site in the feet wound because of neuropathy. PHYSICAL EXAMINATION: VITAL SIGNS: She is afebrile, pulse 73, respirations 18, and blood pressure 106/53. LUNGS: Bilateral fair airflow. No rhonchi or crackle. HEART: S1 and S2 audible. ABDOMEN: Soft, obese, and nontender. No rebound, no guarding. NEUROLOGIC: She is awake, alert, oriented, and communicative. EXTREMITIES: She has bilateral heel erythema and had ulcer on her heel and also right foot toe dressing done by a punch finisher. LABORATORY EXAM: WBC is 6.7, hemoglobin 10.2, hematocrit 31.3, and platelets 206. Chemistry: Sodium 140, potassium 4.3, chloride 103, CO2 of 28. BUN 29, creatinine 1.2. Blood sugar of 104. ASSESSMENT: 1. Bilateral heel ulcer, right worse than the left, right toe cellulitis. 2. Hypertension. 3. Hov-mjtnlfo-hehtrmpfq diabetes. 4. Hyperlipidemia. 5. Hypothyroidism. 6. Under breast fungal infection. PLAN: Currently, the patient is on Zyvox. Local wound care will be done by Podiatry team. We will monitor blood sugar. Out of bed to chair. We will follow up the patient in a.m. Laim Fernandez MD
[2017-10-26] MEDS: Pantoprazole 40 mg EC Tab PO SCH (06:09)
[2017-10-26] MEDS: Levothyroxine 75 MCG TAB PO SCH (06:09)
[2017-10-26 07:04] LABS: HEMOGLOBIN 10.7 g/dL (12.0-16.0); MEAN CELL VOLUME 92.7 fl (80.0-105.0); MEAN CORPUSCULAR HEMOGLOBIN 30.1 pg (25.0-35.0); MEAN CORPUSCULAR HGB CONC 32.4 g/dl (31.0-37.0); MEAN PLATELET VOLUME 11.5 fl (7.0-11.0); RBC 3.56 10^6/uL (3.5-6.1); RED CELL DISTRIBUTION WIDTH 13.5 % (11.5-14.5); WHITE BLOOD COUNT 6.3 10^3/ul (4.5-11.0)
[2017-10-26 07:22] LABS: ALB/GLOB RATIO 0.9 (1.1-1.8); ALBUMIN 3.2 g/dL (3.0-4.8); ALT/SGPT 16 U/L (7-56); AST/SGOT 26 U/L (14-36); BLOOD UREA NITROGEN 24 mg/dL (7-21); CALCIUM 8.7 mg/dL (8.4-10.5); GFR AFRICAN-AMERICAN > 60; GFR NON-AFRICAN AMERICAN 53
[2017-10-26] MEDS: Multivitamin Therapeutic Tab PO SCH (08:43)
[2017-10-26] MEDS: Insulin Detemir 100 units/ml Vial (Levemir) SC SCH ×2 (08:44→22:14)
[2017-10-26] MEDS: Cholecalciferol 1,000 INTLU TAB PO SCH (09:36)
[2017-10-26] MEDS ORDERED: Potassium Chloride 20 mEq ER Tab PO SCH (10:00)
--- NOTE | 2017-10-26 10:44 | MRI ---
Date of service: 10/25/2017 PROCEDURE: MRI of the right foot without contrast HISTORY: eval osteo COMPARISON: TECHNIQUE: MRI of the right foot was performed in multiple planes using multiple pulse sequences. FINDINGS: There is marrow edema in the 3rd distal phalanx consistent with osteomyelitis. There is also soft tissue swelling and edema. There has been amputation of the 2nd digit. There is a small fluid collection adjacent to the flexor tendon of the 1st digit. This is most likely a small synovial cyst and is of doubtful significance. There is tendinopathy or partial tear of the peroneus longus tendon IMPRESSION: Marrow edema in the 3rd distal phalanx consistent with osteomyelitis.
--- NOTE | 2017-10-26 11:39 | CP.PCM.PN ---
<Samantha William - Last Filed: 10/26/17 11:41> Subjective - Date & Time of Evaluation Date of Evaluation: 10/26/17 Time of Evaluation: 07:30 - Subjective Subjective: PGY-3 Infectious disease progress note for Dr. Garcia's service Patient seen and examined at bedside, no acute distress. Patient states that over night she felt an odd sensation in her 3rd right toe which she states is unusual because she has numbness in bilateral feet. Yesterday podiatry redressed the wounds. She denies chest pain, fever, chills, n/v, sob. She is tolerating his diet. Objective - Vital Signs/Intake and Output Vital Signs (last 24 hours): Temp Pulse Resp BP Pulse Ox 97.5 F L 77 20 142/74 98 10/26/17 08:31 10/26/17 09:36 10/26/17 08:31 10/26/17 09:36 10/26/17 08:31 Intake and Output: 10/26/17 10/26/17 06:59 18:59 Intake Total 240 Output Total 400 Balance -160 - Medications Medications: Current Medications Acetaminophen (Tylenol 325mg Tab) 650 mg PO Q6H PRN PRN Reason: Fever >100.4 F Aspirin (Ecotrin) 81 mg PO 0800 [facility] Last Admin: 10/26/17 08:44 Dose: 81 mg Atorvastatin Calcium (Lipitor) 20 mg PO DIN [facility] Last Admin: 10/25/17 19:04 Dose: 20 mg Calcium Carbonate (Caltrate) 600 mg PO DAILY [facility] Last Admin: 10/26/17 09:35 Dose: 600 mg Cholecalciferol (Vitamin D) 1,000 intlu PO DAILY [facility] Last Admin: 10/26/17 09:36 Dose: 1,000 intlu Docusate Sodium (Colace) 100 mg PO BID [facility] Last Admin: 10/26/17 11:30 Dose: 100 mg Glipizide (Glucotrol) 2.5 mg PO ACB [facility] Last Admin: 10/26/17 08:43 Dose: 2.5 mg Glipizide (Glucotrol) 5 mg PO ACD [facility] Last Admin: 10/25/17 19:04 Dose: 5 mg Insulin Detemir (Levemir) 23 unit SC ACBHS [facility] Last Admin: 10/26/17 08:44 Dose: 23 u Levothyroxine Sodium (Synthroid) 75 mcg PO 0600 [facility] Last Admin: 10/26/17 06:09 Dose: 75 mcg Linezolid (Zyvox) 600 mg PO BID [facility] PRN Reason: Protocol Last Admin: 10/26/17 09:35 Dose: 600 mg Losartan Potassium (Cozaar) 25 mg PO 1800 [facility] Last Admin: 10/25/17 19:05 Dose: 25 mg Meloxicam (Mobic) 15 mg PO DAILY [facility] Last Admin: 10/26/17 09:37 Dose: 15 mg Metoprolol Tartrate (Lopressor) 25 mg PO DAILY [facility] Last Admin: 10/26/17 09:36 Dose: 25 mg Multivitamins (Thera Tab) 1 tab PO 0800 [facility] Last Admin: 10/26/17 08:43 Dose: 1 tab Nystatin (Mycostatin Cream) 0 ea TOP BID [facility] Last Admin: 10/25/17 19:11 Dose: Not Given Ondansetron HCl (Zofran Tab) 4 mg PO Q8H PRN PRN Reason: Nausea/Vomiting Pantoprazole Sodium (Protonix Ec Tab) 40 mg PO 0600 [facility] Last Admin: 10/26/17 06:09 Dose: 40 mg Potassium Chloride (K-Dur 20 Meq Er Tab) 10 meq PO QOTHERDAY [facility] Last Admin: 10/26/17 09:35 Dose: 10 meq Quetiapine Fumarate (Seroquel) 25 mg PO HS [facility] PRN Reason: Protocol Last Admin: 10/25/17 21:40 Dose: 25 mg - Labs Labs: 10/26/17 06:30 10/26/17 06:30 PT 12.5 SECONDS (9.4-12.5) 10/24/17 12:00 INR 1.09 10/24/17 12:00 APTT 30.8 Seconds (25.1-36.5) 10/24/17 12:00 - Constitutional Appears: Well, No Acute Distress - Head Exam Head Exam: ATRAUMATIC, NORMOCEPHALIC - Eye Exam Eye Exam: EOMI, Normal appearance - ENT Exam ENT Exam: Mucous Membranes Moist - Respiratory Exam Respiratory Exam: Clear to Ausculation Bilateral, NORMAL BREATHING PATTERN. absent: Rales, Rhonchi, Wheezes, Respiratory Distress - Cardiovascular Exam Cardiovascular Exam: REGULAR RHYTHM. absent: Bradycardia, Tachycardia - GI/Abdominal Exam GI & Abdominal Exam: Soft, Normal Bowel Sounds. absent: Distended, Firm, Tenderness - Extremities Exam Additional comments: dressing on right 3rd toes clean dry and intact, right heel dressing clean, dry and intact - Neurological Exam Neurological Exam: Alert, Awake, Oriented x3 Assessment and Plan - Assessment and Plan (Free Text) Assessment: 81 yo female with past medical history of CAD, Diabetes, PAD, peripheral neuropathy, and previous amputations of the left great toe and right second toe , presented with worsening right 3rd toe infection and previous heel ulcers. Wound culture from 10/17/17 grow MRSA. Patient is continues to be afebrile without leukocytosis. foot xray did not show evidence of osteomyelitis. Patient poor IV access, linezolid IV changed to PO. Podiatry is following, changed dressing yesterday. MRI of the foot official read pending, to rule out osteomyeltitis. Arterial dopplers pending. CRP is within normal limits. 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 Will follow up MRSA screen of the nares. blood cultures show no growth after 24 hours, follow up wound, and urine cultures. case reviewed and discussed with attending, Dr. Garcia <Virgil Garcia - Last Filed: 10/26/17 17:09> Objective - Vital Signs/Intake and Output Vital Signs (last 24 hours): Temp Pulse Resp BP Pulse Ox 97.5 F L 77 20 142/74 98 10/26/17 08:31 10/26/17 09:36 10/26/17 08:31 10/26/17 09:36 10/26/17 08:31 Intake and Output: 10/26/17 10/26/17 06:59 18:59 Intake Total 240 Output Total 400 Balance -160 - Medications Medications: Current Medications Acetaminophen (Tylenol 325mg Tab) 650 mg PO Q6H PRN PRN Reason: Fever >100.4 F Aspirin (Ecotrin) 81 mg PO 0800 [facility] Last Admin: 10/26/17 08:44 Dose: 81 mg Atorvastatin Calcium (Lipitor) 20 mg PO DIN [facility] Last Admin: 10/25/17 19:04 Dose: 20 mg Calcium Carbonate (Caltrate) 600 mg PO DAILY [facility] Last Admin: 10/26/17 09:35 Dose: 600 mg Cholecalciferol (Vitamin D) 1,000 intlu PO DAILY [facility] Last Admin: 10/26/17 09:36 Dose: 1,000 intlu Docusate Sodium (Colace) 100 mg PO BID [facility] Last Admin: 10/26/17 11:30 Dose: 100 mg Glipizide (Glucotrol) 2.5 mg PO ACB [facility] Last Admin: 10/26/17 08:43 Dose: 2.5 mg Glipizide (Glucotrol) 5 mg PO ACD [facility] Last Admin: 10/25/17 19:04 Dose: 5 mg Insulin Detemir (Levemir) 23 unit SC ACBHS [facility] Last Admin: 10/26/17 08:44 Dose: 23 u Levothyroxine Sodium (Synthroid) 75 mcg PO 0600 [facility] Last Admin: 10/26/17 06:09 Dose: 75 mcg Linezolid (Zyvox) 600 mg PO BID [facility] PRN Reason: Protocol Last Admin: 10/26/17 09:35 Dose: 600 mg Losartan Potassium (Cozaar) 25 mg PO 1800 [facility] Last Admin: 10/25/17 19:05 Dose: 25 mg Meloxicam (Mobic) 15 mg PO DAILY [facility] Last Admin: 10/26/17 09:37 Dose: 15 mg Metoprolol Tartrate (Lopressor) 25 mg PO DAILY [facility] Last Admin: 10/26/17 09:36 Dose: 25 mg Multivitamins (Thera Tab) 1 tab PO 0800 [facility] Last Admin: 10/26/17 08:43 Dose: 1 tab Mupirocin (Bactroban Ointment) 0 gm TOP BID [facility] Nystatin (Mycostatin Cream) 0 ea TOP BID [facility] Last Admin: 10/25/17 19:11 Dose: Not Given Ondansetron HCl (Zofran Tab) 4 mg PO Q8H PRN PRN Reason: Nausea/Vomiting Pantoprazole Sodium (Protonix Ec Tab) 40 mg PO 0600 [facility] Last Admin: 10/26/17 06:09 Dose: 40 mg Potassium Chloride (K-Dur 20 Meq Er Tab) 10 meq PO QOTHERDAY [facility] Last Admin: 10/26/17 09:35 Dose: 10 meq Quetiapine Fumarate (Seroquel) 25 mg PO HS [facility] PRN Reason: Protocol Last Admin: 10/25/17 21:40 Dose: 25 mg - Labs Labs: 10/26/17 06:30 10/26/17 06:30 PT 12.5 SECONDS (9.4-12.5) 10/24/17 12:00 INR 1.09 10/24/17 12:00 APTT 30.8 Seconds (25.1-36.5) 10/24/17 12:00 Assessment and Plan - Assessment and Plan (Free Text) Assessment: Infectious Diseases Attending Physician Addendum Patient seen and examined, discussed with medical review coordinator. I have reviewed the pertinent clinical information for the patient, including history of present illness, medical, personal and social histories, lab results and imaging findings. I agree with the above findings, assessment and plan. In addition, will continue Zyvox for this patient with right 3rd toe skin and skin structure infection with MRSA and with evidence of osteomyelitis on MRI. Follow up further plans of Podiatry. If no amputation is to be done, will continue Zyvox for 4 weeks with weekly ESR, CRP, CBC, CMP while on Zyvox with outpatient follow up at the wound care center with Dr. Patterson.
--- NOTE | 2017-10-26 13:26 | PN ---
Copied To: Liam Fernandez MD Attending MD: Liam Fernandez MD DATE: 10/26/2017 SUBJECTIVE: The patient is 81 years old, seen and examined, lying in bed, seems to be comfortable. Complaining of some pain to the heel, complaining of pain in the right forefoot. PHYSICAL EXAMINATION: VITAL SIGNS: She is afebrile, pulse 70, respirations 20, blood pressure 142/74. LUNGS: Bilateral fair airflow. No rhonchi or crackle. HEART: S1 and S2 audible. ABDOMEN: Soft, obese, nontender. No rebound, no guarding. NEUROLOGIC: She is awake, alert, oriented, communicative. EXTREMITIES: Moves all extremities. Both feet are in the dressing. LABORATORY DATA: WBC is 6.3, hemoglobin 10.7, hematocrit 33, platelets 202. Chemistry, sodium 140, potassium 4, chloride 105, CO2 of 28, BUN 24, creatinine 1. Blood sugar 193. She had a MRI of the foot done that shows marrow edema in the third distal phalanx consistent with osteomyelitis. Leg Doppler is pending. ASSESSMENT: 1. Right third toe osteomyelitis. 2. Peripheral vascular disease. 3. [id number] diabetes. 4. Hypertension. 5. Hyperlipidemia. PLAN: Currently the patient is on p.o. Zyvox because of poor IV access, I guess we need to give patient 4 to 6 weeks of antibiotics, she would need PICC line, we will reach out to Infectious Disease if we can treat her with p.o. Zyvox or she needs IV antibiotics, then we will make a plan according to that. Liam Fernandez MD
--- NOTE | 2017-10-26 13:43 | CP.PCM.PN ---
Subjective - Date & Time of Evaluation Date of Evaluation: 10/26/17 Time of Evaluation: 13:40 - Subjective Subjective: Podiatry Progress Note for Dr. Patterson 81F seen and evaluated at bedside for right third digit ulceration, left second digit ulceration and right heel ulceration. Patient is AAO x 3 and NAD, resting comfortably in bed at time of visit. Denies any pain to any of her wound sites. Denies any acute overnight events. Denies any new pedal complaints at this time. Denies any recent N/V/F/C/CP/SOB/D/posterior calf pain when squeezed. Objective - Vital Signs/Intake and Output Vital Signs (last 24 hours): Temp Pulse Resp BP Pulse Ox 97.5 F L 77 20 142/74 98 10/26/17 08:31 10/26/17 09:36 10/26/17 08:31 10/26/17 09:36 10/26/17 08:31 Intake and Output: 10/26/17 10/26/17 06:59 18:59 Intake Total 240 Output Total 400 Balance -160 - Medications Medications: Current Medications Acetaminophen (Tylenol 325mg Tab) 650 mg PO Q6H PRN PRN Reason: Fever >100.4 F Aspirin (Ecotrin) 81 mg PO 0800 [facility] Last Admin: 10/26/17 08:44 Dose: 81 mg Atorvastatin Calcium (Lipitor) 20 mg PO DIN [facility] Last Admin: 10/25/17 19:04 Dose: 20 mg Calcium Carbonate (Caltrate) 600 mg PO DAILY [facility] Last Admin: 10/26/17 09:35 Dose: 600 mg Cholecalciferol (Vitamin D) 1,000 intlu PO DAILY [facility] Last Admin: 10/26/17 09:36 Dose: 1,000 intlu Docusate Sodium (Colace) 100 mg PO BID [facility] Last Admin: 10/26/17 11:30 Dose: 100 mg Glipizide (Glucotrol) 2.5 mg PO ACB [facility] Last Admin: 10/26/17 08:43 Dose: 2.5 mg Glipizide (Glucotrol) 5 mg PO ACD [facility] Last Admin: 10/25/17 19:04 Dose: 5 mg Insulin Detemir (Levemir) 23 unit SC ACBHS [facility] Last Admin: 10/26/17 08:44 Dose: 23 u Levothyroxine Sodium (Synthroid) 75 mcg PO 0600 [facility] Last Admin: 10/26/17 06:09 Dose: 75 mcg Linezolid (Zyvox) 600 mg PO BID [facility] PRN Reason: Protocol Last Admin: 10/26/17 09:35 Dose: 600 mg Losartan Potassium (Cozaar) 25 mg PO 1800 [facility] Last Admin: 10/25/17 19:05 Dose: 25 mg Meloxicam (Mobic) 15 mg PO DAILY [facility] Last Admin: 10/26/17 09:37 Dose: 15 mg Metoprolol Tartrate (Lopressor) 25 mg PO DAILY [facility] Last Admin: 10/26/17 09:36 Dose: 25 mg Multivitamins (Thera Tab) 1 tab PO 0800 [facility] Last Admin: 10/26/17 08:43 Dose: 1 tab Mupirocin (Bactroban Ointment) 0 gm TOP BID [facility] Nystatin (Mycostatin Cream) 0 ea TOP BID [facility] Last Admin: 10/25/17 19:11 Dose: Not Given Ondansetron HCl (Zofran Tab) 4 mg PO Q8H PRN PRN Reason: Nausea/Vomiting Pantoprazole Sodium (Protonix Ec Tab) 40 mg PO 0600 [facility] Last Admin: 10/26/17 06:09 Dose: 40 mg Potassium Chloride (K-Dur 20 Meq Er Tab) 10 meq PO QOTHERDAY [facility] Last Admin: 10/26/17 09:35 Dose: 10 meq Quetiapine Fumarate (Seroquel) 25 mg PO HS [facility] PRN Reason: Protocol Last Admin: 10/25/17 21:40 Dose: 25 mg - Labs Labs: 10/26/17 06:30 10/26/17 06:30 PT 12.5 SECONDS (9.4-12.5) 10/24/17 12:00 INR 1.09 10/24/17 12:00 APTT 30.8 Seconds (25.1-36.5) 10/24/17 12:00 - Constitutional Appears: Well, Non-toxic, No Acute Distress - Extremities Exam Additional comments: LE focused exam Vasc: DP/PT pulses faintly palpable 1/4 b/l. Skin temperature warm to warm from proximal to distal. CFT < 3 seconds to all digits b/l. Moderate edema noted to right third digit and left second digit improved since yesterday. Neuro: Epicritic and protective sensation grossly absent b/l Derm: Right third digit - 1 cm x 1 cm x 0.3 cm dorsal third digit ulceration noted. No periwound erythema, minimal serous drainage, no malodor, no purulence , negative probe to bone, no tracking/tunneling/undermining noted. Dorsal eschar noted surrounding wound. No other clinical signs of infection noted Right heel - 3 cm x 2 cm x 0.3 cm posterior right heel ulceration. Mild periwound erythema, minimal serous drainage, no malodor, no purulence, negative probe to bone, no tracking/tunneling/undermining noted. No other clinical signs of infection noted Left second digit - 0.1 cm x 0.1 cm x 0.1 cm dorsal second digit ulceration. Mild periwound erythema, minimal serous drainage, no malodor, no purulence, negative probe to bone, no tracking/tunneling/undermining noted. No other clinical signs of infection noted MSK: No POP to any ulceration site. ROM WNL at all major joints for age. MMT 4/ 5 in all major muscle groups. No other gross deformities noted - Neurological Exam Neurological Exam: Alert, Awake, Oriented x3 - Psychiatric Exam Psychiatric exam: Normal Affect, Normal Mood Assessment and Plan - Assessment and Plan (Free Text) Assessment: 81F seen and evaluated at bedside for right third digit ulceration, left second digit ulceration and right heel ulceration Plan: Patient seen and evaluated with Dr. Patterson Afebrile, absent leukocytosis Continue abx per ID Wound cx R foot pending MRI R foot: OM third digit Normal MCKENNA/PVRs b/l Surgical shoes ordered for patient Bactroban ordered for patient Digital wounds dressed with polymem pink, optifoam Both heels dressed with optifoam Both feet placed in heel offloading boots Discussed surgical vs. abx treatment for OM No plan for surgical intervention at this time; will attempt watermelon inspector abx for R foot OM Podiatry will continue to follow while patient in house
[2017-10-26] MEDS: Nystatin 100,000 Units/gm Cream(15 gm) TOP SCH ×2 (14:00→18:25)
--- NOTE | 2017-10-26 15:12 | US ---
PROCEDURE: Lower extremity MCKENNA exam HISTORY: Peripheral vascular disease with pain and ulceration. Diabetes. PHYSICIAN(S): Grant De La Rosa MD. FINDINGS: The resting MCKENNA's are normal: right, 1.08and left, 1.12. The brachial systolic pressures are symmetric. The high thigh pressures and waveforms are relatively normal. The calf PVR waveforms augment normally. No significant gradients are noted across the thighs. The ankle and metatarsal waveforms are relatively normal and symmetric. No significant pressure gradients are noted across the lower legs. IMPRESSION: 1. Normal MCKENNA and PVR examination at rest.
[2017-10-26] MEDS: Mupirocin 2% Ointment 15 GM TUBE TOP SCH (18:20)
[2017-10-26] MEDS ORDERED: DiphenhydrAMINE 1% 1 EA TUBE TOP PRN (19:56)
[2017-10-27] MEDS: Levothyroxine 75 MCG TAB PO SCH (05:23)
[2017-10-27] MEDS: Pantoprazole 40 mg EC Tab PO SCH (05:23)
[2017-10-27] MEDS: Insulin Detemir 100 units/ml Vial (Levemir) SC SCH (07:57)
[2017-10-27] MEDS: Multivitamin Therapeutic Tab PO SCH (07:58)
[2017-10-27 09:18] VITALS: BP 117/59; PULSE 73; RESP 20; TEMP 97.7; O2SAT 96
[2017-10-27] MEDS: Nystatin 100,000 Units/gm Cream(15 gm) TOP SCH ×2 (09:31→17:03)
[2017-10-27] MEDS: Mupirocin 2% Ointment 15 GM TUBE TOP SCH ×2 (09:31→17:03)
[2017-10-27] MEDS: Cholecalciferol 1,000 INTLU TAB PO SCH (09:31)
--- NOTE | 2017-10-27 10:49 | CP.PCM.PN ---
Subjective - Date & Time of Evaluation Date of Evaluation: 10/27/17 Time of Evaluation: 10:42 - Subjective Subjective: Podiatry Progress Note for Dr. Patterson 81F seen and evaluated at bedside for right third digit ulceration with underlying osteomyelitis, left second digit ulceration and right heel ulceration. Patient is AAO x 3 and NAD, resting comfortably in bed at time of visit. Denies any pain to any of her wound sites. Denies any acute overnight events. Denies any new pedal complaints at this time. Denies any recent N/V/F/C/ CP/SOB/D/posterior calf pain when squeezed. Objective - Vital Signs/Intake and Output Vital Signs (last 24 hours): Temp Pulse Resp BP Pulse Ox 97.7 F 73 20 117/59 L 96 10/27/17 06:00 10/27/17 06:00 10/27/17 06:00 10/27/17 06:00 10/27/17 06:00 - Medications Medications: Current Medications Acetaminophen (Tylenol 325mg Tab) 650 mg PO Q6H PRN PRN Reason: Fever >100.4 F Aspirin (Ecotrin) 81 mg PO 0800 [facility] Last Admin: 10/27/17 07:58 Dose: 81 mg Atorvastatin Calcium (Lipitor) 20 mg PO DIN [facility] Last Admin: 10/26/17 18:18 Dose: 20 mg Calcium Carbonate (Caltrate) 600 mg PO DAILY [facility] Last Admin: 10/27/17 09:31 Dose: 600 mg Cholecalciferol (Vitamin D) 1,000 intlu PO DAILY [facility] Last Admin: 10/27/17 09:31 Dose: 1,000 intlu Diphenhydramine HCl (Benadryl Maximum Strength 1%) 1 ea TOP Q6H PRN PRN Reason: Itching / Pruritus Last Admin: 10/26/17 20:34 Dose: 1 dose Docusate Sodium (Colace) 100 mg PO BID [facility] Last Admin: 10/27/17 09:30 Dose: 100 mg Glipizide (Glucotrol) 2.5 mg PO ACB [facility] Last Admin: 10/27/17 07:58 Dose: 2.5 mg Glipizide (Glucotrol) 5 mg PO ACD [facility] Last Admin: 10/26/17 18:19 Dose: 5 mg Insulin Detemir (Levemir) 23 unit SC ACBHS [facility] Last Admin: 10/27/17 07:57 Dose: 23 units Levothyroxine Sodium (Synthroid) 75 mcg PO 0600 [facility] Last Admin: 10/27/17 05:23 Dose: 75 mcg Linezolid (Zyvox) 600 mg PO BID [facility] PRN Reason: Protocol Last Admin: 10/27/17 09:31 Dose: 600 mg Losartan Potassium (Cozaar) 25 mg PO 1800 [facility] Last Admin: 10/26/17 18:19 Dose: 25 mg Meloxicam (Mobic) 15 mg PO DAILY [facility] Last Admin: 10/27/17 09:31 Dose: 15 mg Metoprolol Tartrate (Lopressor) 25 mg PO DAILY [facility] Last Admin: 10/27/17 09:31 Dose: 25 mg Multivitamins (Thera Tab) 1 tab PO 0800 [facility] Last Admin: 10/27/17 07:58 Dose: 1 tab Mupirocin (Bactroban Ointment) 0 gm TOP BID [facility] Last Admin: 10/27/17 09:31 Dose: Not Given Nystatin (Mycostatin Cream) 0 ea TOP BID [facility] Last Admin: 10/27/17 09:31 Dose: Not Given Ondansetron HCl (Zofran Tab) 4 mg PO Q8H PRN PRN Reason: Nausea/Vomiting Pantoprazole Sodium (Protonix Ec Tab) 40 mg PO 0600 [facility] Last Admin: 10/27/17 05:23 Dose: 40 mg Potassium Chloride (K-Dur 20 Meq Er Tab) 10 meq PO QOTHERDAY [facility] Last Admin: 10/26/17 09:35 Dose: 10 meq Quetiapine Fumarate (Seroquel) 25 mg PO HS [facility] PRN Reason: Protocol Last Admin: 10/26/17 22:14 Dose: 25 mg - Labs Labs: 10/26/17 06:30 10/26/17 06:30 PT 12.5 SECONDS (9.4-12.5) 10/24/17 12:00 INR 1.09 10/24/17 12:00 APTT 30.8 Seconds (25.1-36.5) 10/24/17 12:00 - Constitutional Appears: Well, Non-toxic, No Acute Distress - Extremities Exam Additional comments: LE focused exam Vasc: DP/PT pulses faintly palpable 1/4 b/l. Skin temperature warm to warm from proximal to distal. CFT < 3 seconds to all digits b/l. Moderate edema noted to right third digit and left second digit Neuro: Epicritic and protective sensation grossly absent b/l Derm: Right third digit - 1 cm x 1 cm x 0.3 cm dorsal third digit ulceration noted. No periwound erythema, minimal serous drainage, no malodor, no purulence , negative probe to bone, no tracking/tunneling/undermining noted. Dorsal eschar noted surrounding wound. No other clinical signs of infection noted Right heel - 3 cm x 2 cm x 0.3 cm posterior right heel ulceration. Mild periwound erythema, minimal serous drainage, no malodor, no purulence, negative probe to bone, no tracking/tunneling/undermining noted. No other clinical signs of infection noted Left second digit - 0.1 cm x 0.1 cm x 0.1 cm dorsal second digit ulceration. No periwound erythema or serous drainage, no malodor, no purulence, negative probe to bone, no tracking/tunneling/undermining noted. No other clinical signs of infection noted MSK: No POP to any ulceration site. ROM WNL at all major joints for age. MMT 4/ 5 in all major muscle groups. No other gross deformities noted - Neurological Exam Neurological Exam: Alert, Awake, Oriented x3 - Psychiatric Exam Psychiatric exam: Normal Affect, Normal Mood Assessment and Plan - Assessment and Plan (Free Text) Assessment: 81F seen and evaluated at bedside for right third digit ulceration with underlying OM, left second digit ulceration and right heel ulceration Plan: Patient seen and evaluated with Dr. Patterson Afebrile, absent leukocytosis Wound cx R foot: MRSA, Proteus Mirabilis R foot MRI: Marrow edema in the third distal phalanx, consistent with osteomyelitis Continue IV abx per ID LE arterial duplex: Normal MCKENNA/PVR at rest Right third digit and left second digit wounds dressed with bactroban, Telfa, DSD R heel dressed with bactroban, optifoam L heel dressed with optifoam Diabetic shoes without heels modified on right side so that there is no pressure on the toes when they are worn by cutting out the toe box. Pt is to wear shoes at all times while weight bearing Patient to where offloading heel shoes at all times while in bed No plan for surgical intervention from podiatry at this time Will treat OM with intermediate card tender PO abx per ID Podiatry will continue to follow while patient in house
[2017-10-27] MEDS ORDERED: levoFLOXacin 750 MG TAB PO SCH (12:00)
--- NOTE | 2017-10-27 12:57 | CP.PCM.PN ---
<Samantha William - Last Filed: 10/27/17 13:08> Subjective - Date & Time of Evaluation Date of Evaluation: 10/27/17 Time of Evaluation: 09:00 - Subjective Subjective: PGY-3 Infectious disease progress note for Dr. Garcia's service Patient seen and examined at bedside, no acute distress. Podiatry dressed the wounds. Patient denies chest pain, fever, chills, n/v, sob. She is tolerating his diet. Objective - Vital Signs/Intake and Output Vital Signs (last 24 hours): Temp Pulse Resp BP Pulse Ox 97.7 F 73 20 117/59 L 96 10/27/17 06:00 10/27/17 06:00 10/27/17 06:00 10/27/17 06:00 10/27/17 06:00 - Medications Medications: Current Medications Acetaminophen (Tylenol 325mg Tab) 650 mg PO Q6H PRN PRN Reason: Fever >100.4 F Aspirin (Ecotrin) 81 mg PO 0800 [facility] Last Admin: 10/27/17 07:58 Dose: 81 mg Atorvastatin Calcium (Lipitor) 20 mg PO DIN [facility] Last Admin: 10/26/17 18:18 Dose: 20 mg Calcium Carbonate (Caltrate) 600 mg PO DAILY [facility] Last Admin: 10/27/17 09:31 Dose: 600 mg Cholecalciferol (Vitamin D) 1,000 intlu PO DAILY [facility] Last Admin: 10/27/17 09:31 Dose: 1,000 intlu Diphenhydramine HCl (Benadryl Maximum Strength 1%) 1 ea TOP Q6H PRN PRN Reason: Itching / Pruritus Last Admin: 10/26/17 20:34 Dose: 1 dose Docusate Sodium (Colace) 100 mg PO BID [facility] Last Admin: 10/27/17 09:30 Dose: 100 mg Glipizide (Glucotrol) 2.5 mg PO ACB [facility] Last Admin: 10/27/17 07:58 Dose: 2.5 mg Glipizide (Glucotrol) 5 mg PO ACD [facility] Last Admin: 10/26/17 18:19 Dose: 5 mg Insulin Detemir (Levemir) 23 unit SC ACBHS [facility] Last Admin: 10/27/17 07:57 Dose: 23 units Levofloxacin (Levaquin) 750 mg PO DAILY [facility] PRN Reason: Protocol Levothyroxine Sodium (Synthroid) 75 mcg PO 0600 [facility] Last Admin: 10/27/17 05:23 Dose: 75 mcg Linezolid (Zyvox) 600 mg PO BID [facility] PRN Reason: Protocol Last Admin: 10/27/17 09:31 Dose: 600 mg Losartan Potassium (Cozaar) 25 mg PO 1800 [facility] Last Admin: 10/26/17 18:19 Dose: 25 mg Meloxicam (Mobic) 15 mg PO DAILY [facility] Last Admin: 10/27/17 09:31 Dose: 15 mg Metoprolol Tartrate (Lopressor) 25 mg PO DAILY [facility] Last Admin: 10/27/17 09:31 Dose: 25 mg Multivitamins (Thera Tab) 1 tab PO 0800 [facility] Last Admin: 10/27/17 07:58 Dose: 1 tab Mupirocin (Bactroban Ointment) 0 gm TOP BID [facility] Last Admin: 10/27/17 09:31 Dose: Not Given Nystatin (Mycostatin Cream) 0 ea TOP BID [facility] Last Admin: 10/27/17 09:31 Dose: Not Given Ondansetron HCl (Zofran Tab) 4 mg PO Q8H PRN PRN Reason: Nausea/Vomiting Pantoprazole Sodium (Protonix Ec Tab) 40 mg PO 0600 [facility] Last Admin: 10/27/17 05:23 Dose: 40 mg Potassium Chloride (K-Dur 20 Meq Er Tab) 10 meq PO QOTHERDAY [facility] Last Admin: 10/26/17 09:35 Dose: 10 meq Quetiapine Fumarate (Seroquel) 25 mg PO HS [facility] PRN Reason: Protocol Last Admin: 10/26/17 22:14 Dose: 25 mg - Labs Labs: 10/26/17 06:30 10/26/17 06:30 PT 12.5 SECONDS (9.4-12.5) 10/24/17 12:00 INR 1.09 10/24/17 12:00 APTT 30.8 Seconds (25.1-36.5) 10/24/17 12:00 - Constitutional Appears: Well, No Acute Distress - Head Exam Head Exam: ATRAUMATIC, NORMAL INSPECTION, NORMOCEPHALIC - Eye Exam Eye Exam: EOMI, Normal appearance - ENT Exam ENT Exam: Mucous Membranes Moist - Respiratory Exam Respiratory Exam: Clear to Ausculation Bilateral, NORMAL BREATHING PATTERN. absent: Rhonchi, Wheezes, Respiratory Distress - Cardiovascular Exam Cardiovascular Exam: REGULAR RHYTHM, +S1, +S2. absent: Bradycardia, Tachycardia - GI/Abdominal Exam GI & Abdominal Exam: Soft, Normal Bowel Sounds. 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 Wound culture from 10/17/17 grow MRSA. Patient is continues to be afebrile. Podiatry is following. MRI of the foot with evidence of osteomyeltitis. Wound cultures grew proteus and MRSA. Discussed with podiatry, no surgical intervention at this time, will continue linezolid for 4 weeks. Arterial dopplers were with normal limits. 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 Will follow up MRSA screen of the nares. case reviewed and discussed with attending, Dr. Garcia <Virgil Garcia - Last Filed: 10/27/17 15:03> Objective - Vital Signs/Intake and Output Vital Signs (last 24 hours): Temp Pulse Resp BP Pulse Ox 97.7 F 73 20 117/59 L 96 10/27/17 06:00 10/27/17 06:00 10/27/17 06:00 10/27/17 06:00 10/27/17 06:00 - Medications Medications: Current Medications Acetaminophen (Tylenol 325mg Tab) 650 mg PO Q6H PRN PRN Reason: Fever >100.4 F Aspirin (Ecotrin) 81 mg PO 0800 [facility] Last Admin: 10/27/17 07:58 Dose: 81 mg Atorvastatin Calcium (Lipitor) 20 mg PO DIN [facility] Last Admin: 10/26/17 18:18 Dose: 20 mg Calcium Carbonate (Caltrate) 600 mg PO DAILY [facility] Last Admin: 10/27/17 09:31 Dose: 600 mg Cholecalciferol (Vitamin D) 1,000 intlu PO DAILY [facility] Last Admin: 10/27/17 09:31 Dose: 1,000 intlu Diphenhydramine HCl (Benadryl Maximum Strength 1%) 1 ea TOP Q6H PRN PRN Reason: Itching / Pruritus Last Admin: 10/26/17 20:34 Dose: 1 dose Docusate Sodium (Colace) 100 mg PO BID [facility] Last Admin: 10/27/17 09:30 Dose: 100 mg Glipizide (Glucotrol) 2.5 mg PO ACB [facility] Last Admin: 10/27/17 07:58 Dose: 2.5 mg Glipizide (Glucotrol) 5 mg PO ACD [facility] Last Admin: 10/26/17 18:19 Dose: 5 mg Insulin Detemir (Levemir) 23 unit SC ACBHS [facility] Last Admin: 10/27/17 07:57 Dose: 23 units Levofloxacin (Levaquin) 750 mg PO DAILY [facility] PRN Reason: Protocol Last Admin: 10/27/17 13:13 Dose: 750 mg Levothyroxine Sodium (Synthroid) 75 mcg PO 0600 [facility] Last Admin: 10/27/17 05:23 Dose: 75 mcg Linezolid (Zyvox) 600 mg PO BID [facility] PRN Reason: Protocol Last Admin: 10/27/17 09:31 Dose: 600 mg Losartan Potassium (Cozaar) 25 mg PO 1800 [facility] Last Admin: 10/26/17 18:19 Dose: 25 mg Meloxicam (Mobic) 15 mg PO DAILY [facility] Last Admin: 10/27/17 09:31 Dose: 15 mg Metoprolol Tartrate (Lopressor) 25 mg PO DAILY [facility] Last Admin: 10/27/17 09:31 Dose: 25 mg Multivitamins (Thera Tab) 1 tab PO 0800 [facility] Last Admin: 10/27/17 07:58 Dose: 1 tab Mupirocin (Bactroban Ointment) 0 gm TOP BID [facility] Last Admin: 10/27/17 09:31 Dose: Not Given Nystatin (Mycostatin Cream) 0 ea TOP BID [facility] Last Admin: 10/27/17 09:31 Dose: Not Given Ondansetron HCl (Zofran Tab) 4 mg PO Q8H PRN PRN Reason: Nausea/Vomiting Pantoprazole Sodium (Protonix Ec Tab) 40 mg PO 0600 [facility] Last Admin: 10/27/17 05:23 Dose: 40 mg Potassium Chloride (K-Dur 20 Meq Er Tab) 10 meq PO QOTHERDAY [facility] Last Admin: 10/26/17 09:35 Dose: 10 meq Quetiapine Fumarate (Seroquel) 25 mg PO HS [facility] PRN Reason: Protocol Last Admin: 10/26/17 22:14 Dose: 25 mg - Labs Labs: 10/26/17 06:30 10/26/17 06:30 PT 12.5 SECONDS (9.4-12.5) 10/24/17 12:00 INR 1.09 10/24/17 12:00 APTT 30.8 Seconds (25.1-36.5) 10/24/17 12:00 Assessment and Plan - Assessment and Plan (Free Text) Assessment: Infectious Diseases Attending Physician Addendum Patient seen and examined, discussed with biomedical service engineer. I have reviewed the pertinent clinical information for the patient, including history of present illness, medical, personal and social histories, lab results and imaging findings. I agree with the above findings, assessment and plan. In addition, will continue the patient on Zyvox and will add Levaquin for this patient with right 3rd toe osteomyelitis, with MRSA and Proteus. Will need 4-6 weeks of antibiotics with weekly ESR, CRP, CBC, CMP while on antibiotics, with regular follow up at the wound care center. Discussed with Dr. Patterson.
--- NOTE | 2017-10-27 16:21 | DS ---
Copied To: Liam Fernandez MD Attending MD: Liam Fernandez MD HISTORY OF PRESENT ILLNESS: The patient is 81 years old, seen and examined, was admitted because of worsening wound of her both heels and right third toe. MRI showed osteomyelitis so she is being transferred to TCU for wound care and continuation of her antibiotic and physical therapy. PHYSICAL EXAMINATION: GENERAL: She is awake, alert, oriented, communicative. VITAL SIGNS: She is afebrile, pulse 73, respirations 20, blood pressure 117/59. LUNGS: Bilateral fair airflow. No rhonchi or crackle. HEART: S1 and S2 audible. ABDOMEN: Soft, obese, nontender. No rebound. No guarding. NEUROLOGICAL: She is awake, alert, oriented, able to communicate. LABORATORY EXAM: Her MRI shows osteomyelitis of right third toe and arterial Doppler shows normal ABIs and PVR examination at rest. ASSESSMENT: 1. Right third toe osteomyelitis. 2. Non-insulin dependent diabetes. 3. Hypertension. 4. Hyperlipidemia. 5. Bilateral heel ulcer. 6. Chronic constipation. PLAN: We will continue patient on current medication. She is on p.o. Zyvox because of poor IV access. She will be transferred to TCU where wound care will be done by podiatry team. We will monitor her blood sugar and continue her regular medication. Continue her on Zyvox. Liam Fernandez MD
== END 2017-10-27 18:46 | DRG 638 ==
LOC: ED 10:38 → ERH 13:25 → 3RSO 17:56
PROVIDERS: ADMIT Internal Medicine; ATTEND Internal Medicine
DX: E11.69 Type 2 diabetes mellitus with other specified complication (principal); M86.9 Osteomyelitis, unspecified; E11.52 Type 2 diabetes mellitus with diabetic peripheral angiopathy with gangrene; E11.621 Type 2 diabetes mellitus with foot ulcer; I25.10 Atherosclerotic heart disease of native coronary artery without angina pectoris; I10 Essential (primary) hypertension; E78.00 Pure hypercholesterolemia, unspecified; L89.622 Pressure ulcer of left heel, stage 2; L89.612 Pressure ulcer of right heel, stage 2; B95.62 Methicillin resistant Staphylococcus aureus infection as the cause of diseases classified elsewhere; E11.42 Type 2 diabetes mellitus with diabetic polyneuropathy; L03.031 Cellulitis of right toe; L97.509 Non-pressure chronic ulcer of other part of unspecified foot with unspecified severity; E78.5 Hyperlipidemia, unspecified; E03.9 Hypothyroidism, unspecified; K59.09 Other constipation; D64.9 Anemia, unspecified; K21.9 Gastro-esophageal reflux disease without esophagitis; Z79.4 Long term (current) use of insulin; Z98.61 Coronary angioplasty status; Z89.412 Acquired absence of left great toe; Z89.421 Acquired absence of other right toe(s); Z88.0 Allergy status to penicillin

== ENCOUNTER 2017-10-27 18:20 | Inpatient (IN) | payer OTHER ==
[2017-10-27] MEDS ORDERED: DiphenhydrAMINE 1% 1 EA TUBE TOP PRN (19:04)
[2017-10-27] MEDS ORDERED: Dextrose 50% SYRINGE Inj (50 ml) IV PRN (19:31)
[2017-10-27] MEDS: Insulin Detemir 100 units/ml Vial (Levemir) SC SCH (22:20)
[2017-10-27] MEDS ORDERED: Pneumococcal 23-Valent Vaccine IM ONE (23:52)
[2017-10-28] MEDS: Pantoprazole 40 mg EC Tab PO SCH (06:05)
[2017-10-28] MEDS: levoFLOXacin 750 MG TAB PO SCH (09:16)
[2017-10-28] MEDS: Cholecalciferol 1,000 INTLU TAB PO SCH (09:17)
[2017-10-28] MEDS: Nystatin 100,000 Units/gm Cream(15 gm) TOP SCH ×3 (10:35→18:12)
[2017-10-28] MEDS: Mupirocin 2% Ointment 15 GM TUBE TOP SCH ×2 (10:35→18:09)
--- NOTE | 2017-10-28 12:16 | CP.PCM.CON ---
<Wayne Flores - Last Filed: 10/28/17 12:12> History of Present Illness - History of Present Illness History of Present Illness: Podiatry Consult note for Dr. Owusu 81F with PMHx CAD, Diabetes, PAD, peripheral neuropathy, and previous amputations of the left great toe and right second toe seen at bedside for infected right third toe infection, right heel ulcer and left second digit ulceration. She is AAO x 3 and NAD at time of visit. Denies any further pedal complaints at this time. Denies any acute overnight events. Denies any recent N/ V/F/C/CP/SOB/D/posterior calf pain when squeezed. Review of Systems - Review of Systems All systems: reviewed and no additional remarkable complaints except Review of Systems: as per HPI Past Patient History - Infectious Disease Hx of Infectious Diseases: None - Tetanus Immunizations Tetanus Immunization: Unknown - Past Medical History & Family History Past Medical History?: Yes - Past Social History Smoking Status: Never Smoked - CARDIAC Hx Cardiac Disorders: Yes Hx Congestive Heart Failure: Yes Hx Hypercholesterolemia: Yes Hx Hypertension: Yes - PULMONARY Hx Respiratory Disorders: No - NEUROLOGICAL Hx Neurological Disorder: Yes (PHERIPHERAL NEUROPATHY) - HEENT Hx HEENT Problems: Yes Hx Cataracts: Yes - RENAL Hx Chronic Kidney Disease: No - ENDOCRINE/METABOLIC Hx Diabetes Mellitus Type 2: Yes Hx Hypothyroidism: Yes - HEMATOLOGICAL/ONCOLOGICAL Hx Blood Disorders: No - INTEGUMENTARY Hx Dermatological Problems: Yes Other/Comment: MASD-UNDER BREAST SKIN FOLD AND STOMACH FOLD. BILATERAL HEEL PRESSURE ULCER STAGE 2. RIGHT 3RD TOE GANGRENE-DIABETIC FOOT ULCER. L GREAT TOE AND RIGHT 2ND TOE AMPUATED. - MUSCULOSKELETAL/RHEUMATOLOGICAL Hx Arthritis: Yes - GASTROINTESTINAL Hx Gastrointestinal Disorders: Yes (GERD) - GENITOURINARY/GYNECOLOGICAL Hx Genitourinary Disorders: Yes (INCONTINENT) Hx Reproductive Disorders: No - PSYCHIATRIC Hx Psychophysiologic Disorder: Yes Hx Depression: Yes Hx Substance Use: No - SURGICAL HISTORY Hx Surgeries: Yes Hx Amputation: Yes (L 1st toe, R 2nd toe) Hx Cardiac Catheterization: Yes Hx Musculoskeletal Surgery: Yes Hx Orthopedic Surgery: Yes - ANESTHESIA Hx Anesthesia: Yes Hx Anesthesia Reactions: (not known) Hx Malignant Hyperthermia: No Meds Allergies/Adverse Reactions: Allergies Allergy/AdvReac Type Severity Reaction Status Date / Time Penicillins Allergy Intermediate ITCHING Verified 10/24/17 14:10 - Medications Medications: Current Medications Acetaminophen (Tylenol 325mg Tab) 650 mg PO Q6H PRN PRN Reason: Fever >100.4 F Aspirin (Ecotrin) 81 mg PO 0800 [facility] Last Admin: 10/28/17 08:02 Dose: 81 mg Atorvastatin Calcium (Lipitor) 20 mg PO DIN [facility] Calcium Carbonate (Caltrate) 600 mg PO DAILY [facility] Last Admin: 10/28/17 09:16 Dose: 600 mg Cholecalciferol (Vitamin D) 1,000 intlu PO DAILY [facility] Last Admin: 10/28/17 09:17 Dose: 1,000 intlu Dextrose (Dextrose 50% Inj) 0 ml IV STAT PRN; Protocol PRN Reason: Hypoglycemia Protocol Diphenhydramine HCl (Benadryl Maximum Strength 1%) 0 ea TOP Q6H PRN PRN Reason: Itching / Pruritus Docusate Sodium (Colace) 100 mg PO BID [facility] Last Admin: 10/28/17 09:16 Dose: 100 mg Glipizide (Glucotrol) 5 mg PO 1700 [facility] Glipizide (Glucotrol) 2.5 mg PO 0800 [facility] Last Admin: 10/28/17 08:08 Dose: Not Given Dextrose (Dextrose 5% In Water 1000 Ml) 1,000 mls @ 0 mls/hr IV .Q0M PRN; Protocol; Per Protocol PRN Reason: Hypoglycemia Protocol Insulin Detemir (Levemir) 23 unit SC [facility] Last Admin: 10/27/17 22:20 Dose: 23 u Levofloxacin (Levaquin) 750 mg PO DAILY [facility] PRN Reason: Protocol Last Admin: 10/28/17 09:16 Dose: 750 mg Linezolid (Zyvox) 600 mg PO BID [facility] PRN Reason: Protocol Last Admin: 10/28/17 09:17 Dose: 600 mg Losartan Potassium (Cozaar) 25 mg PO DAILY [facility] Meloxicam (Mobic) 15 mg PO DAILY [facility] Last Admin: 10/28/17 09:17 Dose: 15 mg Metoprolol Tartrate (Lopressor) 25 mg PO 0800 [facility] Last Admin: 10/28/17 08:05 Dose: Not Given Mupirocin (Bactroban Ointment) 0 gm TOP BID [facility] Last Admin: 10/28/17 10:35 Dose: 1 applic Nystatin (Mycostatin Cream) 0 ea TOP TID [facility] Last Admin: 10/28/17 10:35 Dose: 1 applic Ondansetron HCl (Zofran Tab) 8 mg PO Q8H PRN PRN Reason: Nausea/Vomiting Pantoprazole Sodium (Protonix Ec Tab) 40 mg PO 0600 [facility] Last Admin: 10/28/17 06:05 Dose: 40 mg Potassium Chloride (Klor-Con 10) 10 meq PO QOTHERDAY [facility] Quetiapine Fumarate (Seroquel) 25 mg PO HS [facility] PRN Reason: Protocol Last Admin: 10/27/17 21:30 Dose: 25 mg Physical Exam - Constitutional Appears: Well, Non-toxic, No Acute Distress - Extremities Exam Additional comments: LE focused exam Vasc: DP/PT pulses faintly palpable 1/4 b/l. Skin temperature warm to warm from proximal to distal. CFT < 3 seconds to all digits b/l. Moderate edema noted to right third digit and left second digit Neuro: Epicritic and protective sensation grossly absent b/l Derm: Right third digit - 1 cm x 1 cm x 0.3 cm dorsal third digit ulceration noted. No periwound erythema, minimal serous drainage, no malodor, no purulence , negative probe to bone, no tracking/tunneling/undermining noted. Dorsal eschar noted surrounding wound. No other clinical signs of infection noted. Wound appears to be stable at this time. Right heel - 3 cm x 2 cm x 0.3 cm posterior right heel ulceration. Mild periwound erythema, minimal serous drainage, no malodor, no purulence, negative probe to bone, no tracking/tunneling/undermining noted. No other clinical signs of infection noted Left second digit - 0.1 cm x 0.1 cm x 0.1 cm dorsal second digit ulceration. No periwound erythema or serous drainage, no malodor, no purulence, negative probe to bone, no tracking/tunneling/undermining noted. No other clinical signs of infection noted MSK: No POP to any ulceration site. ROM WNL at all major joints for age. MMT 4/ 5 in all major muscle groups. No other gross deformities noted - Neurological Exam Neurological exam: Alert, Oriented x3 - Psychiatric Exam Psychiatric exam: Normal Affect, Normal Mood Results - Vital Signs Recent Vital Signs: Last Vital Signs Temp 98 F 10/27/17 23:38 Pulse 72 10/28/17 08:05 Resp 18 10/27/17 23:38 BP 105/52 L 10/28/17 08:05 Pulse Ox - Labs Labs: Laboratory Results - last 24 hr 10/27/17 10/28/17 10/28/17 22:20 06:50 07:12 POC Glucose (mg/dL) 142 H 55 L 70 10/28/17 12:02 POC Glucose (mg/dL) 119 H Assessment & Plan - Assessment and Plan (Free Text) Assessment: 81F seen and evaluated at bedside for right third digit ulceration with underlying OM, left second digit ulceration and right heel ulceration Plan: Patient seen and evaluated with Dr. Owusu Afebrile Wound cx: Proteus Mirabilis, MRSA Continue abx per ID R foot MRI: Marrow edema in the third distal phalanx, consistent with osteomyelitis Continue IV abx per ID LE arterial duplex: Normal CMKENNA/PVR at rest Right third digit and left second digit wounds dressed with bactroban, Telfa, DSD R heel dressed with bactroban, optifoam L heel dressed with optifoam Both legs dressed with tubigrip Patient to WBAT in diabetic shoes No plan for surgical intervention from podiatry at this time Will treat OM with senior living PO abx per ID Podiatry will continue to follow while patient in house - Date & Time Date: 10/28/17 Time: 12:19 <Robby Owusu - Last Filed: 10/28/17 19:28> Meds - Medications Medications: Current Medications Acetaminophen (Tylenol 325mg Tab) 650 mg PO Q6H PRN PRN Reason: Fever >100.4 F Aspirin (Ecotrin) 81 mg PO 0800 [facility] Last Admin: 10/28/17 08:02 Dose: 81 mg Atorvastatin Calcium (Lipitor) 20 mg PO DIN [facility] Last Admin: 10/28/17 18:00 Dose: 20 mg Calcium Carbonate (Caltrate) 600 mg PO DAILY [facility] Last Admin: 10/28/17 09:16 Dose: 600 mg Cholecalciferol (Vitamin D) 1,000 intlu PO DAILY [facility] Last Admin: 10/28/17 09:17 Dose: 1,000 intlu Dextrose (Dextrose 50% Inj) 0 ml IV STAT PRN; Protocol PRN Reason: Hypoglycemia Protocol Diphenhydramine HCl (Benadryl Maximum Strength 1%) 0 ea TOP Q6H PRN PRN Reason: Itching / Pruritus Docusate Sodium (Colace) 100 mg PO BID [facility] Last Admin: 10/28/17 18:10 Dose: 100 mg Glipizide (Glucotrol) 5 mg PO 1700 [facility] Last Admin: 10/28/17 18:11 Dose: 5 mg Glipizide (Glucotrol) 2.5 mg PO 0800 [facility] Last Admin: 10/28/17 08:08 Dose: Not Given Dextrose (Dextrose 5% In Water 1000 Ml) 1,000 mls @ 0 mls/hr IV .Q0M PRN; Protocol; Per Protocol PRN Reason: Hypoglycemia Protocol Insulin Detemir (Levemir) 23 unit SC [facility] Last Admin: 10/27/17 22:20 Dose: 23 u Levofloxacin (Levaquin) 750 mg PO DAILY [facility] PRN Reason: Protocol Last Admin: 10/28/17 09:16 Dose: 750 mg Linezolid (Zyvox) 600 mg PO BID [facility] PRN Reason: Protocol Last Admin: 10/28/17 18:14 Dose: 600 mg Losartan Potassium (Cozaar) 25 mg PO DAILY [facility] Last Admin: 10/28/17 18:14 Dose: 25 mg Meloxicam (Mobic) 15 mg PO DAILY [facility] Last Admin: 10/28/17 09:17 Dose: 15 mg Metoprolol Tartrate (Lopressor) 25 mg PO 0800 [facility] Last Admin: 10/28/17 08:05 Dose: Not Given Mupirocin (Bactroban Ointment) 0 gm TOP BID [facility] Last Admin: 10/28/17 18:09 Dose: 1 applic Nystatin (Mycostatin Cream) 0 ea TOP TID [facility] Last Admin: 10/28/17 18:12 Dose: 1 applic Ondansetron HCl (Zofran Tab) 8 mg PO Q8H PRN PRN Reason: Nausea/Vomiting Pantoprazole Sodium (Protonix Ec Tab) 40 mg PO 0600 [facility] Last Admin: 10/28/17 06:05 Dose: 40 mg Potassium Chloride (Klor-Con 10) 10 meq PO QOTHERDAY [facility] Quetiapine Fumarate (Seroquel) 25 mg PO HS [facility] PRN Reason: Protocol Last Admin: 10/27/17 21:30 Dose: 25 mg Results - Vital Signs Recent Vital Signs: Last Vital Signs Temp 98.4 F 10/28/17 16:00 Pulse 86 10/28/17 18:14 Resp 20 10/28/17 16:00 BP 133/68 10/28/17 18:14 Pulse Ox 97 10/28/17 16:00 - Labs Labs: Laboratory Results - last 24 hr 10/27/17 10/28/17 10/28/17 22:20 06:50 07:12 POC Glucose (mg/dL) 142 H 55 L 70 10/28/17 10/28/17 12:02 16:44 POC Glucose (mg/dL) 119 H 148 H Attending/Attestation - Attestation I have personally seen and examined this patient.: Yes I have fully participated in the care of the patient.: Yes I have reviewed all pertinent clinical information: Yes
--- NOTE | 2017-10-28 12:58 | CP.PCM.CON ---
<Samantha William - Last Filed: 10/28/17 12:56> History of Present Illness - History of Present Illness History of Present Illness: PGY-3 infectious disease consult for Dr. Garcia's service 81 yo female with past medical history of CAD, Diabetes, PAD, peripheral neuropathy, and previous amputations of the left great toe and right second toe , orginally admitted to hospital for worsening right 3rd toe infection, found to have osteromyelitis. Patient was transferred to TCU for further physical therapy. Podiatry continues to follow patient, changed dressing yesterday. Patient also has bilateral heel ulcers. Patient was started on linezolid and levaquin for osteomyelitis, will continue for about 4 weeks. Patient denies any pain, stating that both feet ore numb. Patient denies any fever, chills, nausea , vomiting, diarrhea, abdominal pain, chest pain, shortness of breath, trauma or any other complaints. PMH: CAD, PAD, Hypercholesterolemia, HTN, diabetes on insulin, hypothyriodism, GERD, peripheral neuropathy PSH: Amputation of left 1st toes, right 2nd toe, left hip repair, carpal tunnel and cubital tunnel, cataract extraction social history: denies smoking or illicit drug use, occasional alcohol use allergy: penicillins- rash and pruritus family history: father had diabetes require below knee amputation Review of Systems - Review of Systems All systems: reviewed and no additional remarkable complaints except Past Patient History - Infectious Disease Hx of Infectious Diseases: None - Tetanus Immunizations Tetanus Immunization: Unknown - Past Medical History & Family History Past Medical History?: Yes - Past Social History Smoking Status: Never Smoked - CARDIAC Hx Cardiac Disorders: Yes Hx Congestive Heart Failure: Yes Hx Hypercholesterolemia: Yes Hx Hypertension: Yes - PULMONARY Hx Respiratory Disorders: No - NEUROLOGICAL Hx Neurological Disorder: Yes (PHERIPHERAL NEUROPATHY) - HEENT Hx HEENT Problems: Yes Hx Cataracts: Yes - RENAL Hx Chronic Kidney Disease: No - ENDOCRINE/METABOLIC Hx Diabetes Mellitus Type 2: Yes Hx Hypothyroidism: Yes - HEMATOLOGICAL/ONCOLOGICAL Hx Blood Disorders: No - INTEGUMENTARY Hx Dermatological Problems: Yes Other/Comment: MASD-UNDER BREAST SKIN FOLD AND STOMACH FOLD. BILATERAL HEEL PRESSURE ULCER STAGE 2. RIGHT 3RD TOE GANGRENE-DIABETIC FOOT ULCER. L GREAT TOE AND RIGHT 2ND TOE AMPUATED. - MUSCULOSKELETAL/RHEUMATOLOGICAL Hx Arthritis: Yes - GASTROINTESTINAL Hx Gastrointestinal Disorders: Yes (GERD) - GENITOURINARY/GYNECOLOGICAL Hx Genitourinary Disorders: Yes (INCONTINENT) Hx Reproductive Disorders: No - PSYCHIATRIC Hx Psychophysiologic Disorder: Yes Hx Depression: Yes Hx Substance Use: No - SURGICAL HISTORY Hx Surgeries: Yes Hx Amputation: Yes (L 1st toe, R 2nd toe) Hx Cardiac Catheterization: Yes Hx Musculoskeletal Surgery: Yes Hx Orthopedic Surgery: Yes - ANESTHESIA Hx Anesthesia: Yes Hx Anesthesia Reactions: (not known) Hx Malignant Hyperthermia: No Meds Allergies/Adverse Reactions: Allergies Allergy/AdvReac Type Severity Reaction Status Date / Time Penicillins Allergy Intermediate ITCHING Verified 10/24/17 14:10 - Medications Medications: Current Medications Acetaminophen (Tylenol 325mg Tab) 650 mg PO Q6H PRN PRN Reason: Fever >100.4 F Aspirin (Ecotrin) 81 mg PO 0800 [facility] Last Admin: 10/28/17 08:02 Dose: 81 mg Atorvastatin Calcium (Lipitor) 20 mg PO DIN [facility] Calcium Carbonate (Caltrate) 600 mg PO DAILY [facility] Last Admin: 10/28/17 09:16 Dose: 600 mg Cholecalciferol (Vitamin D) 1,000 intlu PO DAILY [facility] Last Admin: 10/28/17 09:17 Dose: 1,000 intlu Dextrose (Dextrose 50% Inj) 0 ml IV STAT PRN; Protocol PRN Reason: Hypoglycemia Protocol Diphenhydramine HCl (Benadryl Maximum Strength 1%) 0 ea TOP Q6H PRN PRN Reason: Itching / Pruritus Docusate Sodium (Colace) 100 mg PO BID [facility] Last Admin: 10/28/17 09:16 Dose: 100 mg Glipizide (Glucotrol) 5 mg PO 1700 [facility] Glipizide (Glucotrol) 2.5 mg PO 0800 [facility] Last Admin: 10/28/17 08:08 Dose: Not Given Dextrose (Dextrose 5% In Water 1000 Ml) 1,000 mls @ 0 mls/hr IV .Q0M PRN; Protocol; Per Protocol PRN Reason: Hypoglycemia Protocol Insulin Detemir (Levemir) 23 unit SC [facility] Last Admin: 10/27/17 22:20 Dose: 23 u Levofloxacin (Levaquin) 750 mg PO DAILY [facility] PRN Reason: Protocol Last Admin: 10/28/17 09:16 Dose: 750 mg Linezolid (Zyvox) 600 mg PO BID [facility] PRN Reason: Protocol Last Admin: 10/28/17 09:17 Dose: 600 mg Losartan Potassium (Cozaar) 25 mg PO DAILY [facility] Meloxicam (Mobic) 15 mg PO DAILY [facility] Last Admin: 10/28/17 09:17 Dose: 15 mg Metoprolol Tartrate (Lopressor) 25 mg PO 0800 [facility] Last Admin: 10/28/17 08:05 Dose: Not Given Mupirocin (Bactroban Ointment) 0 gm TOP BID [facility] Last Admin: 10/28/17 10:35 Dose: 1 applic Nystatin (Mycostatin Cream) 0 ea TOP TID [facility] Last Admin: 10/28/17 10:35 Dose: 1 applic Ondansetron HCl (Zofran Tab) 8 mg PO Q8H PRN PRN Reason: Nausea/Vomiting Pantoprazole Sodium (Protonix Ec Tab) 40 mg PO 0600 [facility] Last Admin: 10/28/17 06:05 Dose: 40 mg Potassium Chloride (Klor-Con 10) 10 meq PO QOTHERDAY [facility] Quetiapine Fumarate (Seroquel) 25 mg PO HS [facility] PRN Reason: Protocol Last Admin: 10/27/17 21:30 Dose: 25 mg Physical Exam - Constitutional Appears: Well, No Acute Distress - Head Exam Head Exam: ATRAUMATIC, NORMAL INSPECTION, NORMOCEPHALIC - Eye Exam Eye Exam: EOMI, Normal appearance - ENT Exam ENT Exam: Mucous Membranes Moist - Respiratory Exam Respiratory Exam: Clear to Auscultation Bilateral, NORMAL BREATHING PATTERN. absent: Rhonchi, Wheezes, Respiratory Distress - Cardiovascular Exam Cardiovascular Exam: REGULAR RHYTHM. absent: Bradycardia, Tachycardia, Diastolic murmur, Systolic Murmur - GI/Abdominal Exam GI & Abdominal Exam: Normal Bowel Sounds, Soft. absent: Diminished Bowel Sounds , Distended, Firm, Tenderness - Extremities Exam Additional comments: dressing of right foot clean, dry and intact - Neurological Exam Neurological exam: Alert, Oriented x3 - Skin Skin Exam: Dry, Intact, Normal Color, Warm Results - Vital Signs Recent Vital Signs: Last Vital Signs Temp 98 F 10/27/17 23:38 Pulse 72 10/28/17 08:05 Resp 18 10/27/17 23:38 BP 105/52 L 10/28/17 08:05 Pulse Ox - Labs Labs: Laboratory Results - last 24 hr 10/27/17 10/28/17 10/28/17 22:20 06:50 07:12 POC Glucose (mg/dL) 142 H 55 L 70 10/28/17 12:02 POC Glucose (mg/dL) 119 H Assessment & Plan - Assessment and Plan (Free Text) Assessment: 81 yo female with past medical history of CAD, Diabetes, PAD, peripheral neuropathy, and previous amputations of the left great toe and right second toe , presented with worsening right 3rd toe infection found to have oseteomyelitis with MRSA and proteus and MRSA. MRSA screen of the nares was negative. At this time podiatry recommends no surgical intervention therefore will continue levaquin and linezolid for 4 weeks. Will have weekly ESR, CRP, CBC, CMP while on antibiotics and regular wound care. case reviewed and discussed with attending, Dr. Garcia <Virgil Garcia S - Last Filed: 10/28/17 16:40> Meds - Medications Medications: Current Medications Acetaminophen (Tylenol 325mg Tab) 650 mg PO Q6H PRN PRN Reason: Fever >100.4 F Aspirin (Ecotrin) 81 mg PO 0800 [facility] Last Admin: 10/28/17 08:02 Dose: 81 mg Atorvastatin Calcium (Lipitor) 20 mg PO DIN [facility] Calcium Carbonate (Caltrate) 600 mg PO DAILY [facility] Last Admin: 10/28/17 09:16 Dose: 600 mg Cholecalciferol (Vitamin D) 1,000 intlu PO DAILY [facility] Last Admin: 10/28/17 09:17 Dose: 1,000 intlu Dextrose (Dextrose 50% Inj) 0 ml IV STAT PRN; Protocol PRN Reason: Hypoglycemia Protocol Diphenhydramine HCl (Benadryl Maximum Strength 1%) 0 ea TOP Q6H PRN PRN Reason: Itching / Pruritus Docusate Sodium (Colace) 100 mg PO BID [facility] Last Admin: 10/28/17 09:16 Dose: 100 mg Glipizide (Glucotrol) 5 mg PO 1700 [facility] Glipizide (Glucotrol) 2.5 mg PO 0800 [facility] Last Admin: 10/28/17 08:08 Dose: Not Given Dextrose (Dextrose 5% In Water 1000 Ml) 1,000 mls @ 0 mls/hr IV .Q0M PRN; Protocol; Per Protocol PRN Reason: Hypoglycemia Protocol Insulin Detemir (Levemir) 23 unit SC HS [facility] Last Admin: 10/27/17 22:20 Dose: 23 u Levofloxacin (Levaquin) 750 mg PO DAILY [facility] PRN Reason: Protocol Last Admin: 10/28/17 09:16 Dose: 750 mg Linezolid (Zyvox) 600 mg PO BID [facility] PRN Reason: Protocol Last Admin: 10/28/17 09:17 Dose: 600 mg Losartan Potassium (Cozaar) 25 mg PO DAILY [facility] Meloxicam (Mobic) 15 mg PO DAILY [facility] Last Admin: 10/28/17 09:17 Dose: 15 mg Metoprolol Tartrate (Lopressor) 25 mg PO 0800 [facility] Last Admin: 10/28/17 08:05 Dose: Not Given Mupirocin (Bactroban Ointment) 0 gm TOP BID [facility] Last Admin: 10/28/17 10:35 Dose: 1 applic Nystatin (Mycostatin Cream) 0 ea TOP TID [facility] Last Admin: 10/28/17 14:02 Dose: 1 applic Ondansetron HCl (Zofran Tab) 8 mg PO Q8H PRN PRN Reason: Nausea/Vomiting Pantoprazole Sodium (Protonix Ec Tab) 40 mg PO 0600 [facility] Last Admin: 10/28/17 06:05 Dose: 40 mg Potassium Chloride (Klor-Con 10) 10 meq PO QOTHERDAY [facility] Quetiapine Fumarate (Seroquel) 25 mg PO [facility] PRN Reason: Protocol Last Admin: 10/27/17 21:30 Dose: 25 mg Results - Vital Signs Recent Vital Signs: Last Vital Signs Temp 98 F 10/27/17 23:38 Pulse 72 10/28/17 08:05 Resp 18 10/27/17 23:38 BP 105/52 L 10/28/17 08:05 Pulse Ox - Labs Labs: Laboratory Results - last 24 hr 10/27/17 10/28/17 10/28/17 22:20 06:50 07:12 POC Glucose (mg/dL) 142 H 55 L 70 10/28/17 12:02 POC Glucose (mg/dL) 119 H Assessment & Plan - Assessment and Plan (Free Text) Assessment: Infectious Diseases Attending Physician Addendum Patient seen and examined, discussed with emergency medical dispatcher. I have reviewed the pertinent clinical information for the patient, including history of present illness, medical, personal and social histories, lab results and imaging findings. I agree with the above findings, assessment and plan. In addition, will continue the patient on Zyvox and Levaquin for this patient with right 3rd toe osteomyelitis, with MRSA and Proteus. Will need 4-6 weeks of antibiotics with weekly ESR, CRP, CBC, CMP while on antibiotics, with regular follow up at the wound care center. Discussed with Dr. Patterson yesterday.
--- NOTE | 2017-10-28 20:20 | HP ---
Copied To: Liam Fernandez MD Attending MD: Liam Fernandez MD HISTORY OF PRESENT ILLNESS: The patient is 81 years old, known to me from multiple previous admissions, was sent by Dr. Patterson to ER because of worsening heel wound, so she was admitted on acute care floor, had MRI done that shows osteomyelitis of third toe, has been on antibiotics. She was on IV Zyvox because of poor IV access. It was switched to p.o. Zyvox and Levaquin, was sent to TCU last night to continue her antibiotic and wound care. PAST MEDICAL HISTORY: She has significant past medical history of; 1. Multiple toe amputation. She has been under the care of Dr. Patterson for heel wounds. 2. Non-insulin dependent diabetes. 3. Hypertension. 4. Hyperlipidemia. ALLERGIES: SHE IS ALLERGIC TO PENICILLIN. MEDICATIONS: At home, she is on; 1. Seroquel 25 at bedtime. 2. Potassium 10 mEq daily. 3. Multivitamin. 4. Metoprolol 25 daily. 5. Losartan 25 daily. 6. Levothyroxine 75 mcg daily. She is on Synthroid 75 mcg daily. 7. Glipizide 2.5 mg daily. 8. Caltrate. 9. Atorvastatin. 10. Aspirin. SOCIAL HISTORY: She lives with her daughter. Denies smoking or drinking. REVIEW OF SYSTEMS: Significant for right foot pain. PHYSICAL EXAMINATION: GENERAL: She is awake, alert, oriented, and communicative. VITAL SIGNS: She is afebrile, pulse 72, respirations 18, and blood pressure 105/52. LUNGS: Bilateral fair airflow. No rhonchi or crackle. HEART: S1 and S2 audible. ABDOMEN: Soft, nontender. No rebound. No guarding. NEUROLOGIC: She is awake and alert, able to communicate. Both legs, they are in the dressing. ASSESSMENT: 1. Right third toe osteomyelitis. 2. Non-insulin dependent diabetes. 3. Hypertension. 4. Hyperlipidemia. 5. Hypothyroidism. 6. Deconditioning and difficulty walking. PLAN: The patient will be maintained on her usual medications. She is on Levaquin 750 daily and she is on p.o. Zyvox, we will continue that. Local wound care will be done by the Podiatry team. Liam Fernandez MD [facility] # [id number]
[2017-10-28] MEDS: Insulin Detemir 100 units/ml Vial (Levemir) SC SCH (22:17)
[2017-10-29] MEDS: Pantoprazole 40 mg EC Tab PO SCH (06:02)
[2017-10-29] MEDS: Potassium Chloride 10 mEq ER Tab PO SCH (10:22)
[2017-10-29] MEDS: Cholecalciferol 1,000 INTLU TAB PO SCH (10:23)
[2017-10-29] MEDS: levoFLOXacin 750 MG TAB PO SCH (10:23)
--- NOTE | 2017-10-29 10:52 | CP.PCM.PN ---
<Shanna Jane - Last Filed: 10/29/17 10:49> Subjective - Date & Time of Evaluation Date of Evaluation: 10/29/17 Time of Evaluation: 10:50 - Subjective Subjective: Podiatry Consult note for Dr. Owusu 81F seen at bedside for infected right third toe infection, right heel ulcer and left second digit ulceration. She is AAO x 3 and NAD at time of visit. Denies any further pedal complaints at this time. Denies any acute overnight events. Denies any recent N/V/F/C/CP/SOB/D/posterior calf pain when squeezed. Objective - Vital Signs/Intake and Output Vital Signs (last 24 hours): Temp Pulse Resp BP Pulse Ox 98.3 F 80 18 99/60 L 97 10/29/17 09:06 10/29/17 10:25 10/29/17 09:06 10/29/17 10:25 10/28/17 16:00 - Medications Medications: Current Medications Acetaminophen (Tylenol 325mg Tab) 650 mg PO Q6H PRN PRN Reason: Fever >100.4 F Aspirin (Ecotrin) 81 mg PO 0800 [facility] Last Admin: 10/29/17 10:22 Dose: 81 mg Atorvastatin Calcium (Lipitor) 20 mg PO DIN [facility] Last Admin: 10/28/17 18:00 Dose: 20 mg Calcium Carbonate (Caltrate) 600 mg PO DAILY [facility] Last Admin: 10/29/17 10:23 Dose: 600 mg Cholecalciferol (Vitamin D) 1,000 intlu PO DAILY [facility] Last Admin: 10/29/17 10:23 Dose: 1,000 intlu Dextrose (Dextrose 50% Inj) 0 ml IV STAT PRN; Protocol PRN Reason: Hypoglycemia Protocol Diphenhydramine HCl (Benadryl Maximum Strength 1%) 0 ea TOP Q6H PRN PRN Reason: Itching / Pruritus Docusate Sodium (Colace) 100 mg PO BID [facility] Last Admin: 10/29/17 10:16 Dose: Not Given Glipizide (Glucotrol) 5 mg PO 1700 [facility] Last Admin: 10/28/17 18:11 Dose: 5 mg Glipizide (Glucotrol) 2.5 mg PO 0800 [facility] Last Admin: 10/29/17 10:24 Dose: 2.5 mg Dextrose (Dextrose 5% In Water 1000 Ml) 1,000 mls @ 0 mls/hr IV .Q0M PRN; Protocol; Per Protocol PRN Reason: Hypoglycemia Protocol Insulin Detemir (Levemir) 23 unit SC [facility] Last Admin: 10/28/17 22:17 Dose: 23 u Levofloxacin (Levaquin) 750 mg PO DAILY [facility] PRN Reason: Protocol Last Admin: 10/29/17 10:23 Dose: 750 mg Losartan Potassium (Cozaar) 25 mg PO DAILY [facility] Last Admin: 10/29/17 10:23 Dose: Not Given Meloxicam (Mobic) 15 mg PO DAILY [facility] Last Admin: 10/29/17 10:26 Dose: 15 mg Metoprolol Tartrate (Lopressor) 25 mg PO 0800 [facility] Last Admin: 10/29/17 10:25 Dose: Not Given Mupirocin (Bactroban Ointment) 0 gm TOP BID [facility] Last Admin: 10/28/17 18:09 Dose: 1 applic Nystatin (Mycostatin Cream) 0 ea TOP TID [facility] Last Admin: 10/28/17 18:12 Dose: 1 applic Ondansetron HCl (Zofran Tab) 8 mg PO Q8H PRN PRN Reason: Nausea/Vomiting Pantoprazole Sodium (Protonix Ec Tab) 40 mg PO 0600 [facility] Last Admin: 10/29/17 06:02 Dose: 40 mg Potassium Chloride (Klor-Con 10) 10 meq PO QOTHERDAY [facility] Last Admin: 10/29/17 10:22 Dose: 10 meq Quetiapine Fumarate (Seroquel) 25 mg PO [facility] PRN Reason: Protocol Last Admin: 10/28/17 22:17 Dose: 25 mg - Constitutional Appears: Well, Non-toxic, No Acute Distress - Head Exam Head Exam: ATRAUMATIC, NORMOCEPHALIC - Extremities Exam Additional comments: LE focused exam Vasc: DP/PT pulses faintly palpable 1/4 b/l. Skin temperature warm to warm from proximal to distal. CFT < 3 seconds to all digits b/l. Moderate edema noted to right third digit and left second digit Neuro: Epicritic and protective sensation grossly absent b/l Derm: Right third digit - 1 cm x 1 cm x 0.3 cm dorsal third digit ulceration noted. No periwound erythema, minimal serous drainage, no malodor, no purulence , negative probe to bone, no tracking/tunneling/undermining noted. Dorsal eschar noted surrounding wound. No other clinical signs of infection noted. Wound appears to be stable at this time. Right heel - 3 cm x 2 cm x 0.3 cm posterior right heel ulceration. Mild periwound erythema, minimal serous drainage, no malodor, no purulence, negative probe to bone, no tracking/tunneling/undermining noted. No other clinical signs of infection noted Left second digit - 0.1 cm x 0.1 cm x 0.1 cm dorsal second digit ulceration. No periwound erythema or serous drainage, no malodor, no purulence, negative probe to bone, no tracking/tunneling/undermining noted. No other clinical signs of infection noted MSK: No POP to any ulceration site. ROM WNL at all major joints for age. MMT 4/ 5 in all major muscle groups. No other gross deformities noted - Neurological Exam Neurological Exam: Alert, Awake, Oriented x3 - Psychiatric Exam Psychiatric exam: Normal Affect, Normal Mood Assessment and Plan - Assessment and Plan (Free Text) Assessment: 81F seen and evaluated at bedside for right third digit ulceration with underlying OM, left second digit ulceration and right heel ulceration Plan: Patient seen and evaluated with Dr. Owusu Wound cx: Proteus Mirabilis, MRSA Continue abx per ID R foot MRI: Marrow edema in the third distal phalanx, consistent with osteomyelitis Continue IV abx per ID LE arterial duplex: Normal MCKENNA/PVR at rest Right third digit and left second digit wounds dressed with bactroban, Telfa, DSD R heel dressed with bactroban, optifoam L heel dressed with optifoam Both legs dressed with tubigrip Patient wearing Multipodus boots Patient to WBAT in diabetic shoes No plan for surgical intervention from podiatry at this time Will treat OM with terminal supervisor PO abx per ID Podiatry will continue to follow while patient in house <Robby Owusu - Last Filed: 10/29/17 13:51> Objective - Vital Signs/Intake and Output Vital Signs (last 24 hours): Temp Pulse Resp BP Pulse Ox 98.3 F 80 18 99/60 L 97 10/29/17 09:06 10/29/17 10:25 10/29/17 09:06 10/29/17 10:25 10/28/17 16:00 - Medications Medications: Current Medications Acetaminophen (Tylenol 325mg Tab) 650 mg PO Q6H PRN PRN Reason: Fever >100.4 F Aspirin (Ecotrin) 81 mg PO 0800 [facility] Last Admin: 10/29/17 10:22 Dose: 81 mg Atorvastatin Calcium (Lipitor) 20 mg PO DIN [facility] Last Admin: 10/28/17 18:00 Dose: 20 mg Calcium Carbonate (Caltrate) 600 mg PO DAILY [facility] Last Admin: 10/29/17 10:23 Dose: 600 mg Cholecalciferol (Vitamin D) 1,000 intlu PO DAILY [facility] Last Admin: 10/29/17 10:23 Dose: 1,000 intlu Dextrose (Dextrose 50% Inj) 0 ml IV STAT PRN; Protocol PRN Reason: Hypoglycemia Protocol Diphenhydramine HCl (Benadryl Maximum Strength 1%) 0 ea TOP Q6H PRN PRN Reason: Itching / Pruritus Docusate Sodium (Colace) 100 mg PO BID [facility] Last Admin: 10/29/17 10:16 Dose: Not Given Glipizide (Glucotrol) 5 mg PO 1700 [facility] Last Admin: 10/28/17 18:11 Dose: 5 mg Glipizide (Glucotrol) 2.5 mg PO 0800 [facility] Last Admin: 10/29/17 10:24 Dose: 2.5 mg Dextrose (Dextrose 5% In Water 1000 Ml) 1,000 mls @ 0 mls/hr IV .Q0M PRN; Protocol; Per Protocol PRN Reason: Hypoglycemia Protocol Insulin Detemir (Levemir) 23 unit SC [facility] Last Admin: 10/28/17 22:17 Dose: 23 u Levofloxacin (Levaquin) 750 mg PO DAILY [facility] PRN Reason: Protocol Last Admin: 10/29/17 10:23 Dose: 750 mg Losartan Potassium (Cozaar) 25 mg PO DAILY [facility] Last Admin: 10/29/17 10:23 Dose: Not Given Meloxicam (Mobic) 15 mg PO DAILY [facility] Last Admin: 10/29/17 10:26 Dose: 15 mg Metoprolol Tartrate (Lopressor) 25 mg PO 0800 [facility] Last Admin: 10/29/17 10:25 Dose: Not Given Mupirocin (Bactroban Ointment) 0 gm TOP BID [facility] Last Admin: 10/29/17 11:00 Dose: 1 applic Nystatin (Mycostatin Cream) 0 ea TOP TID [facility] Last Admin: 10/29/17 13:46 Dose: Not Given Ondansetron HCl (Zofran Tab) 8 mg PO Q8H PRN PRN Reason: Nausea/Vomiting Pantoprazole Sodium (Protonix Ec Tab) 40 mg PO 0600 [facility] Last Admin: 10/29/17 06:02 Dose: 40 mg Potassium Chloride (Klor-Con 10) 10 meq PO QOTHERDAY [facility] Last Admin: 10/29/17 10:22 Dose: 10 meq Quetiapine Fumarate (Seroquel) 25 mg PO HS [facility] PRN Reason: Protocol Last Admin: 10/28/17 22:17 Dose: 25 mg Attending/Attestation - Attestation I have personally seen and examined this patient.: Yes I have fully participated in the care of the patient.: Yes I have reviewed all pertinent clinical information, including history, physical exam and plan: Yes
[2017-10-29] MEDS: Mupirocin 2% Ointment 15 GM TUBE TOP SCH ×2 (11:00→17:32)
[2017-10-29] MEDS: Nystatin 100,000 Units/gm Cream(15 gm) TOP SCH ×3 (11:57→17:32)
--- NOTE | 2017-10-29 15:06 | CP.PCM.PN ---
Subjective - Date & Time of Evaluation Date of Evaluation: 10/29/17 Time of Evaluation: 12:20 - Subjective Subjective: No increased pain in the foot, no fevers, no nausea, no diarrhea. Objective - Vital Signs/Intake and Output Vital Signs (last 24 hours): Temp Pulse Resp BP Pulse Ox 98.4 F 86 20 133/68 97 10/28/17 16:00 10/28/17 18:14 10/28/17 16:00 10/28/17 18:14 10/28/17 16:00 - Medications Medications: Current Medications Acetaminophen (Tylenol 325mg Tab) 650 mg PO Q6H PRN PRN Reason: Fever >100.4 F Aspirin (Ecotrin) 81 mg PO 0800 [facility] Last Admin: 10/28/17 08:02 Dose: 81 mg Atorvastatin Calcium (Lipitor) 20 mg PO DIN [facility] Last Admin: 10/28/17 18:00 Dose: 20 mg Calcium Carbonate (Caltrate) 600 mg PO DAILY [facility] Last Admin: 10/28/17 09:16 Dose: 600 mg Cholecalciferol (Vitamin D) 1,000 intlu PO DAILY [facility] Last Admin: 10/28/17 09:17 Dose: 1,000 intlu Dextrose (Dextrose 50% Inj) 0 ml IV STAT PRN; Protocol PRN Reason: Hypoglycemia Protocol Diphenhydramine HCl (Benadryl Maximum Strength 1%) 0 ea TOP Q6H PRN PRN Reason: Itching / Pruritus Docusate Sodium (Colace) 100 mg PO BID [facility] Last Admin: 10/28/17 18:10 Dose: 100 mg Glipizide (Glucotrol) 5 mg PO 1700 [facility] Last Admin: 10/28/17 18:11 Dose: 5 mg Glipizide (Glucotrol) 2.5 mg PO 0800 [facility] Last Admin: 10/28/17 08:08 Dose: Not Given Dextrose (Dextrose 5% In Water 1000 Ml) 1,000 mls @ 0 mls/hr IV .Q0M PRN; Protocol; Per Protocol PRN Reason: Hypoglycemia Protocol Insulin Detemir (Levemir) 23 unit SC HS [facility] Last Admin: 10/28/17 22:17 Dose: 23 u Levofloxacin (Levaquin) 750 mg PO DAILY [facility] PRN Reason: Protocol Last Admin: 10/28/17 09:16 Dose: 750 mg Linezolid (Zyvox) 600 mg PO BID [facility] PRN Reason: Protocol Last Admin: 10/28/17 18:14 Dose: 600 mg Losartan Potassium (Cozaar) 25 mg PO DAILY [facility] Last Admin: 10/28/17 18:14 Dose: 25 mg Meloxicam (Mobic) 15 mg PO DAILY [facility] Last Admin: 10/28/17 09:17 Dose: 15 mg Metoprolol Tartrate (Lopressor) 25 mg PO 0800 [facility] Last Admin: 10/28/17 08:05 Dose: Not Given Mupirocin (Bactroban Ointment) 0 gm TOP BID [facility] Last Admin: 10/28/17 18:09 Dose: 1 applic Nystatin (Mycostatin Cream) 0 ea TOP TID [facility] Last Admin: 10/28/17 18:12 Dose: 1 applic Ondansetron HCl (Zofran Tab) 8 mg PO Q8H PRN PRN Reason: Nausea/Vomiting Pantoprazole Sodium (Protonix Ec Tab) 40 mg PO 0600 [facility] Last Admin: 10/29/17 06:02 Dose: 40 mg Potassium Chloride (Klor-Con 10) 10 meq PO QOTHERDAY [facility] Quetiapine Fumarate (Seroquel) 25 mg PO HS [facility] PRN Reason: Protocol Last Admin: 10/28/17 22:17 Dose: 25 mg - Constitutional Appears: Non-toxic, Chronically Ill - Head Exam Head Exam: NORMAL INSPECTION - Neck Exam Neck Exam: absent: Meningismus - Respiratory Exam Respiratory Exam: Decreased Breath Sounds - Cardiovascular Exam Cardiovascular Exam: +S1, +S2 - GI/Abdominal Exam GI & Abdominal Exam: Soft. 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
[2017-10-29] MEDS: Insulin Detemir 100 units/ml Vial (Levemir) SC SCH (22:46)
--- NOTE | 2017-10-29 23:05 | PN ---
Copied To: Liam Fernandez MD Attending MD: Liam Fernandez MD DATE: 10/29/2017 SUBJECTIVE: The patient is 81 years old, seen and examined, lying in bed, seems to be comfortable. Complained of left hand pain off and on, complained of fluctuating sugar numbers. OBJECTIVE: VITAL SIGNS: She is afebrile, pulse rate 98, respirations 20, blood pressure 149/84. LUNGS: Bilateral fair airflow. No rhonchi or crackle. HEART: S1 and S2 audible. ABDOMEN: Soft, nontender. No rebound, no guarding. NEUROLOGIC: She is awake, alert, oriented, communicative, moves all extremities. EXTREMITIES: Right foot is in the dressing so as the left foot and heel. She did not like the specialized shoes that were arranged for her. She said her right third toe rubs in there and she feels uncomfortable. LABORATORY EXAM: Her blood sugar is 149. ASSESSMENT: 1. Right third toe osteomyelitis. 2. Non-insulin dependent diabetes. 3. Hypertension. 4. Hyperlipidemia. PLAN: The patient is on Levaquin and Zyvox as per ID. Local wound care is being done by Podiatry team. Encourage ambulation and monitor blood sugar. We follow up the patient in a.m. Liam Fernandez MD
[2017-10-30] MEDS: Pantoprazole 40 mg EC Tab PO SCH (06:39)
--- NOTE | 2017-10-30 09:33 | CP.PCM.PN ---
<Shanna Jane - Last Filed: 10/30/17 09:30> Subjective - Date & Time of Evaluation Date of Evaluation: 10/30/17 Time of Evaluation: 09:30 - Subjective Subjective: Podiatry Consult note for Dr. Owusu 81 y/o female seen at bedside for infected right third toe infection, right heel ulcer and left second digit ulceration. She is AAO x 3 and NAD at time of visit. Patient reports she is unable to walk in the shoe-gear during therapy as they feel uncomfortable. Denies any further pedal complaints at this time. Denies any acute overnight events. Denies any recent N/V/F/C/CP/SOB/D/posterior calf pain when squeezed. Objective - Vital Signs/Intake and Output Vital Signs (last 24 hours): Temp Pulse Resp BP Pulse Ox 98.4 F 91 H 20 137/72 98 10/29/17 16:00 10/29/17 22:45 10/29/17 16:00 10/29/17 22:45 10/29/17 16:00 - Medications Medications: Current Medications Acetaminophen (Tylenol 325mg Tab) 650 mg PO Q6H PRN PRN Reason: Fever >100.4 F Aspirin (Ecotrin) 81 mg PO 0800 [facility] Last Admin: 10/30/17 08:03 Dose: 81 mg Atorvastatin Calcium (Lipitor) 20 mg PO DIN [facility] Last Admin: 10/29/17 17:30 Dose: 20 mg Calcium Carbonate (Caltrate) 600 mg PO DAILY [facility] Last Admin: 10/29/17 10:23 Dose: 600 mg Cholecalciferol (Vitamin D) 1,000 intlu PO DAILY [facility] Last Admin: 10/29/17 10:23 Dose: 1,000 intlu Dextrose (Dextrose 50% Inj) 0 ml IV STAT PRN; Protocol PRN Reason: Hypoglycemia Protocol Diphenhydramine HCl (Benadryl Maximum Strength 1%) 0 ea TOP Q6H PRN PRN Reason: Itching / Pruritus Docusate Sodium (Colace) 100 mg PO BID [facility] Last Admin: 10/29/17 17:27 Dose: Not Given Glipizide (Glucotrol) 5 mg PO 1700 [facility] Last Admin: 10/29/17 17:30 Dose: 5 mg Glipizide (Glucotrol) 2.5 mg PO 0800 [facility] Last Admin: 10/30/17 08:03 Dose: 2.5 mg Dextrose (Dextrose 5% In Water 1000 Ml) 1,000 mls @ 0 mls/hr IV .Q0M PRN; Protocol; Per Protocol PRN Reason: Hypoglycemia Protocol Insulin Detemir (Levemir) 23 unit SC [facility] Last Admin: 10/29/17 22:46 Dose: 23 u Levofloxacin (Levaquin) 750 mg PO DAILY [facility] PRN Reason: Protocol Last Admin: 10/29/17 10:23 Dose: 750 mg Losartan Potassium (Cozaar) 25 mg PO DAILY [facility] Last Admin: 10/29/17 10:23 Dose: Not Given Meloxicam (Mobic) 15 mg PO DAILY PRN PRN Reason: pain in hand Last Admin: 10/29/17 22:47 Dose: 15 mg Metoprolol Tartrate (Lopressor) 25 mg PO [facility] Last Admin: 10/29/17 22:45 Dose: 25 mg Mupirocin (Bactroban Ointment) 0 gm TOP BID [facility] Last Admin: 10/29/17 17:32 Dose: Not Given Nystatin (Mycostatin Cream) 0 ea TOP TID [facility] Last Admin: 10/29/17 17:32 Dose: Not Given Ondansetron HCl (Zofran Tab) 8 mg PO Q8H PRN PRN Reason: Nausea/Vomiting Pantoprazole Sodium (Protonix Ec Tab) 40 mg PO 0600 [facility] Last Admin: 10/30/17 06:39 Dose: 40 mg Potassium Chloride (Klor-Con 10) 10 meq PO QOTHERDAY [facility] Last Admin: 10/29/17 10:22 Dose: 10 meq Quetiapine Fumarate (Seroquel) 25 mg PO [facility] PRN Reason: Protocol Last Admin: 10/29/17 22:45 Dose: 25 mg - Constitutional Appears: Well, Non-toxic, No Acute Distress - Head Exam Head Exam: ATRAUMATIC, NORMOCEPHALIC - Extremities Exam Additional comments: LE focused exam Vasc: DP/PT pulses faintly palpable 1/4 b/l. Skin temperature warm to warm from proximal to distal. CFT < 3 seconds to all digits b/l. Moderate edema noted to right third digit and left second digit Neuro: Epicritic and protective sensation grossly absent b/l Derm: Right third digit - 1 cm x 1 cm x 0.3 cm dorsal third digit ulceration noted. No periwound erythema, minimal serous drainage, no malodor, no purulence , negative probe to bone, no tracking/tunneling/undermining noted. Dorsal eschar noted surrounding wound. No other clinical signs of infection noted. Wound appears to be stable at this time. Right heel - 3 cm x 2 cm x 0.3 cm posterior right heel ulceration. Mild periwound erythema, minimal serous drainage, no malodor, no purulence, negative probe to bone, no tracking/tunneling/undermining noted. No other clinical signs of infection noted Left second digit - 0.1 cm x 0.1 cm x 0.1 cm dorsal second digit ulceration. No periwound erythema or serous drainage, no malodor, no purulence, negative probe to bone, no tracking/tunneling/undermining noted. No other clinical signs of infection noted MSK: No POP to any ulceration site. ROM WNL at all major joints for age. MMT 4/ 5 in all major muscle groups. No other gross deformities noted - Neurological Exam Neurological Exam: Alert, Awake, Oriented x3 - Psychiatric Exam Psychiatric exam: Normal Affect, Normal Mood Assessment and Plan - Assessment and Plan (Free Text) Assessment: 81 y/o female seen and evaluated at bedside for right third digit ulceration with underlying OM, left second digit ulceration and right heel ulceration Plan: Patient seen and evaluated Wound cx: Proteus Mirabilis, MRSA Continue abx per ID R foot MRI: Marrow edema in the third distal phalanx, consistent with osteomyelitis Continue IV abx per ID LE arterial duplex: Normal MCKENNA/PVR at rest Right third digit and left second digit wounds dressed with bactroban, Telfa, DSD R heel dressed with bactroban, optifoam L heel dressed with optifoam Both legs dressed with tubigrip Patient wearing Multipodus boots Patient to WBAT in diabetic shoes No plan for surgical intervention from podiatry at this time Will treat OM with correction PO abx per ID Podiatry will continue to follow while patient in house <Robby Owusu - Last Filed: 10/31/17 08:03> Objective - Vital Signs/Intake and Output Vital Signs (last 24 hours): Temp Pulse Resp BP Pulse Ox 98.1 F 89 20 153/71 H 98 10/30/17 16:00 10/30/17 22:38 10/30/17 16:00 10/30/17 22:38 10/30/17 16:00 - Medications Medications: Current Medications Acetaminophen (Tylenol 325mg Tab) 650 mg PO Q6H PRN PRN Reason: Fever >100.4 F Aspirin (Ecotrin) 81 mg PO 0800 [facility] Last Admin: 10/30/17 08:03 Dose: 81 mg Atorvastatin Calcium (Lipitor) 20 mg PO DIN [facility] Last Admin: 10/30/17 17:31 Dose: 20 mg Calcium Carbonate (Caltrate) 600 mg PO DAILY [facility] Last Admin: 10/30/17 10:47 Dose: 600 mg Cholecalciferol (Vitamin D) 1,000 intlu PO DAILY [facility] Last Admin: 10/30/17 10:49 Dose: 1,000 intlu Dextrose (Dextrose 50% Inj) 0 ml IV STAT PRN; Protocol PRN Reason: Hypoglycemia Protocol Diphenhydramine HCl (Benadryl Maximum Strength 1%) 0 ea TOP Q6H PRN PRN Reason: Itching / Pruritus Docusate Sodium (Colace) 100 mg PO BID [facility] Last Admin: 10/30/17 17:30 Dose: Not Given Glipizide (Glucotrol) 5 mg PO 1700 [facility] Last Admin: 10/30/17 17:31 Dose: 5 mg Glipizide (Glucotrol) 2.5 mg PO 0800 [facility] Last Admin: 10/30/17 08:03 Dose: 2.5 mg Dextrose (Dextrose 5% In Water 1000 Ml) 1,000 mls @ 0 mls/hr IV .Q0M PRN; Protocol; Per Protocol PRN Reason: Hypoglycemia Protocol Insulin Detemir (Levemir) 23 unit SC HS [facility] Last Admin: 10/30/17 22:42 Dose: 23 u Levofloxacin (Levaquin) 750 mg PO DAILY [facility] PRN Reason: Protocol Last Admin: 10/30/17 10:48 Dose: 750 mg Levothyroxine Sodium (Synthroid) 75 mcg PO 0600 [facility] PRN Reason: Protocol Last Admin: 10/31/17 06:03 Dose: 75 mcg Linezolid (Zyvox) 600 mg PO BID [facility] PRN Reason: Protocol Last Admin: 10/30/17 17:31 Dose: 600 mg Losartan Potassium (Cozaar) 25 mg PO DAILY [facility] Last Admin: 10/30/17 10:47 Dose: 25 mg Meloxicam (Mobic) 15 mg PO DAILY PRN PRN Reason: pain in hand Last Admin: 10/30/17 22:38 Dose: 15 mg Metoprolol Tartrate (Lopressor) 25 mg PO HS [facility] Last Admin: 10/30/17 22:38 Dose: 25 mg Mupirocin (Bactroban Ointment) 0 gm TOP BID [facility] Last Admin: 10/30/17 17:30 Dose: Not Given Nystatin (Mycostatin Cream) 0 ea TOP TID [facility] Last Admin: 10/30/17 17:31 Dose: Not Given Ondansetron HCl (Zofran Tab) 8 mg PO Q8H PRN PRN Reason: Nausea/Vomiting Pantoprazole Sodium (Protonix Ec Tab) 40 mg PO 0600 [facility] Last Admin: 10/31/17 06:03 Dose: 40 mg Potassium Chloride (Klor-Con 10) 10 meq PO QOTHERDAY [facility] Last Admin: 10/29/17 10:22 Dose: 10 meq Quetiapine Fumarate (Seroquel) 25 mg PO [facility] PRN Reason: Protocol Last Admin: 10/30/17 22:38 Dose: 25 mg Attending/Attestation - Attestation I have personally seen and examined this patient.: Yes I have fully participated in the care of the patient.: Yes I have reviewed all pertinent clinical information, including history, physical exam and plan: Yes
[2017-10-30] MEDS: Mupirocin 2% Ointment 15 GM TUBE TOP SCH ×2 (10:47→17:30)
[2017-10-30] MEDS: levoFLOXacin 750 MG TAB PO SCH (10:48)
[2017-10-30] MEDS: Cholecalciferol 1,000 INTLU TAB PO SCH (10:49)
[2017-10-30] MEDS: Nystatin 100,000 Units/gm Cream(15 gm) TOP SCH ×3 (10:49→17:31)
--- NOTE | 2017-10-30 17:12 | CP.PCM.PN ---
Subjective - Date & Time of Evaluation Date of Evaluation: 10/30/17 Time of Evaluation: 12:35 - Subjective Subjective: No fevers, not in distress, no nausea or diarrhea. Objective - Vital Signs/Intake and Output Vital Signs (last 24 hours): Temp Pulse Resp BP Pulse Ox 98.3 F 80 18 99/60 L 97 10/29/17 09:06 10/29/17 10:25 10/29/17 09:06 10/29/17 10:25 10/28/17 16:00 - Medications Medications: Current Medications Acetaminophen (Tylenol 325mg Tab) 650 mg PO Q6H PRN PRN Reason: Fever >100.4 F Aspirin (Ecotrin) 81 mg PO 0800 [facility] Last Admin: 10/29/17 10:22 Dose: 81 mg Atorvastatin Calcium (Lipitor) 20 mg PO DIN [facility] Last Admin: 10/28/17 18:00 Dose: 20 mg Calcium Carbonate (Caltrate) 600 mg PO DAILY [facility] Last Admin: 10/29/17 10:23 Dose: 600 mg Cholecalciferol (Vitamin D) 1,000 intlu PO DAILY [facility] Last Admin: 10/29/17 10:23 Dose: 1,000 intlu Dextrose (Dextrose 50% Inj) 0 ml IV STAT PRN; Protocol PRN Reason: Hypoglycemia Protocol Diphenhydramine HCl (Benadryl Maximum Strength 1%) 0 ea TOP Q6H PRN PRN Reason: Itching / Pruritus Docusate Sodium (Colace) 100 mg PO BID [facility] Last Admin: 10/29/17 10:16 Dose: Not Given Glipizide (Glucotrol) 5 mg PO 1700 [facility] Last Admin: 10/28/17 18:11 Dose: 5 mg Glipizide (Glucotrol) 2.5 mg PO 0800 [facility] Last Admin: 10/29/17 10:24 Dose: 2.5 mg Dextrose (Dextrose 5% In Water 1000 Ml) 1,000 mls @ 0 mls/hr IV .Q0M PRN; Protocol; Per Protocol PRN Reason: Hypoglycemia Protocol Insulin Detemir (Levemir) 23 unit SC HS [facility] Last Admin: 10/28/17 22:17 Dose: 23 u Levofloxacin (Levaquin) 750 mg PO DAILY [facility] PRN Reason: Protocol Last Admin: 10/29/17 10:23 Dose: 750 mg Losartan Potassium (Cozaar) 25 mg PO DAILY [facility] Last Admin: 10/29/17 10:23 Dose: Not Given Meloxicam (Mobic) 15 mg PO DAILY [facility] Last Admin: 10/29/17 10:26 Dose: 15 mg Metoprolol Tartrate (Lopressor) 25 mg PO 0800 [facility] Last Admin: 10/29/17 10:25 Dose: Not Given Mupirocin (Bactroban Ointment) 0 gm TOP BID [facility] Last Admin: 10/29/17 11:00 Dose: 1 applic Nystatin (Mycostatin Cream) 0 ea TOP TID [facility] Last Admin: 10/29/17 13:46 Dose: Not Given Ondansetron HCl (Zofran Tab) 8 mg PO Q8H PRN PRN Reason: Nausea/Vomiting Pantoprazole Sodium (Protonix Ec Tab) 40 mg PO 0600 [facility] Last Admin: 10/29/17 06:02 Dose: 40 mg Potassium Chloride (Klor-Con 10) 10 meq PO QOTHERDAY [facility] Last Admin: 10/29/17 10:22 Dose: 10 meq Quetiapine Fumarate (Seroquel) 25 mg PO HS [facility] PRN Reason: Protocol Last Admin: 10/28/17 22:17 Dose: 25 mg - Constitutional Appears: Non-toxic, Chronically Ill - Head Exam Head Exam: NORMAL INSPECTION - ENT Exam ENT Exam: Mucous Membranes Moist - Neck Exam Neck Exam: absent: Meningismus - Respiratory Exam Respiratory Exam: Decreased Breath Sounds - Cardiovascular Exam Cardiovascular Exam: +S1, +S2 - GI/Abdominal Exam GI & Abdominal Exam: Soft. 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 and Proteus history of right heel ulcer, infected with MRSA with no evidence of osteomyelitis on MRI - S/P treatment with antibiotics peripheral arterial disease history of left heel infected ulcer with cellulitis without evidence of osteomyelitis on MRI history of 2nd right toe and metatarsal head osteomyelitis S/P surgery chronic renal failure obesity with BMI 38 osteoarthritis HTN DM hypothyroidism S/P left toe amputation S/P right hip surgery Plan continue Zyvox and Levaquin to complete 4-6 weeks of antibiotics with weekly ESR , CRP, CBC, CMP with outpatient follow up with Podiatry onc discharged
--- NOTE | 2017-10-30 22:19 | PN ---
Copied To: Mariya Cruz MD Attending MD: Mariya Cruz MD DATE: 10/30/2017 SUBJECTIVE: Comfortable in bed, in no acute distress. No pain. Blood sugar is elevated. OBJECTIVE: GENERAL: Comfortable in bed, in no acute distress. VITAL SIGNS: Afebrile, temperature 98.7; heart rate is 84 per minute; respiratory rate 18 per minute; blood pressure 130/70. HEENT: Pallor positive. NECK: No lymphadenopathy. CHEST: Air entry present and equal, bilateral. No added sounds. CARDIOVASCULAR: S1, S2 normal. No murmur. No gallop. ABDOMEN: Soft, nontender. EXTREMITY: Right foot in dressing. LABORATORY DATA: Labs reviewed. MEDICATIONS: Reviewed. ASSESSMENT: Right toe osteomyelitis, noninsulin-dependent diabetes mellitus, hypertension, hyperlipidemia. PLAN: Currently on IV antibiotics, Levaquin and Zyvox. ID is following, note reviewed. Wound care by Podiatry team. Encouraged ambulation. Medications reviewed. Mariya Cruz MD
[2017-10-30] MEDS: Insulin Detemir 100 units/ml Vial (Levemir) SC SCH (22:42)
[2017-10-31] MEDS: Pantoprazole 40 mg EC Tab PO SCH (06:03)
[2017-10-31] MEDS: Levothyroxine 75 MCG TAB PO SCH (06:03)
[2017-10-31] MEDS: Mupirocin 2% Ointment 15 GM TUBE TOP SCH ×2 (10:40→17:39)
[2017-10-31] MEDS: levoFLOXacin 750 MG TAB PO SCH (10:53)
[2017-10-31] MEDS: Potassium Chloride 10 mEq ER Tab PO SCH (10:53)
[2017-10-31] MEDS: Nystatin 100,000 Units/gm Cream(15 gm) TOP SCH ×3 (10:54→17:39)
[2017-10-31] MEDS: Cholecalciferol 1,000 INTLU TAB PO SCH (10:54)
--- NOTE | 2017-10-31 12:58 | CP.PCM.PN ---
<Aaron Jones - Last Filed: 10/31/17 12:54> Subjective - Date & Time of Evaluation Date of Evaluation: 10/31/17 Time of Evaluation: 12:54 - Subjective Subjective: Podiatry Consult note for Dr. Owusu 81 y/o female seen at bedside for infected right third toe infection, right heel ulcer and left second digit ulceration. She is AAO x 3 and NAD at time of visit. Patient reports she is unable to walk in the shoe-gear during therapy as they feel uncomfortable. Denies any further pedal complaints at this time. Denies any acute overnight events. Denies any recent N/V/F/C/CP/SOB/D/posterior calf pain when squeezed. Objective - Vital Signs/Intake and Output Vital Signs (last 24 hours): Temp Pulse Resp BP Pulse Ox 98.1 F 89 20 92/46 L 98 10/30/17 16:00 10/30/17 22:38 10/30/17 16:00 10/31/17 10:55 10/30/17 16:00 - Medications Medications: Current Medications Acetaminophen (Tylenol 325mg Tab) 650 mg PO Q6H PRN PRN Reason: Fever >100.4 F Aspirin (Ecotrin) 81 mg PO 0800 [facility] Last Admin: 10/31/17 08:36 Dose: 81 mg Atorvastatin Calcium (Lipitor) 20 mg PO DIN [facility] Last Admin: 10/30/17 17:31 Dose: 20 mg Calcium Carbonate (Caltrate) 600 mg PO DAILY [facility] Last Admin: 10/31/17 10:51 Dose: 600 mg Cholecalciferol (Vitamin D) 1,000 intlu PO DAILY [facility] Last Admin: 10/31/17 10:54 Dose: 1,000 intlu Dextrose (Dextrose 50% Inj) 0 ml IV STAT PRN; Protocol PRN Reason: Hypoglycemia Protocol Diphenhydramine HCl (Benadryl Maximum Strength 1%) 0 ea TOP Q6H PRN PRN Reason: Itching / Pruritus Docusate Sodium (Colace) 100 mg PO BID [facility] Last Admin: 10/31/17 10:53 Dose: Not Given Furosemide (Lasix) 20 mg PO 0600 [facility] Glipizide (Glucotrol) 5 mg PO 1700 [facility] Last Admin: 10/30/17 17:31 Dose: 5 mg Glipizide (Glucotrol) 5 mg PO 0800 [facility] Dextrose (Dextrose 5% In Water 1000 Ml) 1,000 mls @ 0 mls/hr IV .Q0M PRN; Protocol; Per Protocol PRN Reason: Hypoglycemia Protocol Insulin Detemir (Levemir) 30 unit SC HS [facility] Levofloxacin (Levaquin) 750 mg PO DAILY [facility] PRN Reason: Protocol Last Admin: 10/31/17 10:53 Dose: 750 mg Levothyroxine Sodium (Synthroid) 75 mcg PO 0600 [facility] PRN Reason: Protocol Last Admin: 10/31/17 06:03 Dose: 75 mcg Linezolid (Zyvox) 600 mg PO BID [facility] PRN Reason: Protocol Last Admin: 10/31/17 10:54 Dose: 600 mg Losartan Potassium (Cozaar) 25 mg PO DAILY [facility] Last Admin: 10/31/17 10:55 Dose: Not Given Meloxicam (Mobic) 15 mg PO DAILY PRN PRN Reason: pain in hand Last Admin: 10/30/17 22:38 Dose: 15 mg Metoprolol Tartrate (Lopressor) 25 mg PO [facility] Last Admin: 10/30/17 22:38 Dose: 25 mg Mupirocin (Bactroban Ointment) 0 gm TOP BID [facility] Last Admin: 10/31/17 10:40 Dose: 1 applic Nystatin (Mycostatin Cream) 0 ea TOP TID [facility] Last Admin: 10/31/17 10:54 Dose: 1 applic Ondansetron HCl (Zofran Tab) 8 mg PO Q8H PRN PRN Reason: Nausea/Vomiting Pantoprazole Sodium (Protonix Ec Tab) 40 mg PO 0600 [facility] Last Admin: 10/31/17 06:03 Dose: 40 mg Potassium Chloride (Klor-Con 10) 10 meq PO QOTHERDAY [facility] Last Admin: 10/31/17 10:53 Dose: 10 meq Quetiapine Fumarate (Seroquel) 25 mg PO [facility] PRN Reason: Protocol Last Admin: 10/30/17 22:38 Dose: 25 mg - Constitutional Appears: Well, Non-toxic, No Acute Distress - Extremities Exam Additional comments: LE focused exam Vasc: DP/PT pulses faintly palpable 1/4 b/l. Skin temperature warm to warm from proximal to distal. CFT < 3 seconds to all digits b/l. Moderate edema noted to right third digit and left second digit Neuro: Epicritic and protective sensation grossly absent b/l Derm: Right third digit - 1 cm x 1 cm x 0.3 cm dorsal third digit ulceration noted. No periwound erythema, minimal serous drainage, no malodor, no purulence , negative probe to bone, no tracking/tunneling/undermining noted. Dorsal eschar noted surrounding wound. No other clinical signs of infection noted. Wound appears to be stable at this time. Right heel - 3 cm x 2 cm x 0.3 cm posterior right heel ulceration. Mild periwound erythema, minimal serous drainage, no malodor, no purulence, negative probe to bone, no tracking/tunneling/undermining noted. No other clinical signs of infection noted Left second digit - healed MSK: No POP to any ulceration site. ROM WNL at all major joints for age. MMT 4/ 5 in all major muscle groups. No other gross deformities noted - Neurological Exam Neurological Exam: Alert, Awake, Oriented x3 - Psychiatric Exam Psychiatric exam: Normal Affect, Normal Mood Assessment and Plan - Assessment and Plan (Free Text) Assessment: 81 y/o female seen and evaluated at bedside for right third digit ulceration with underlying OM, left second digit ulceration (healed) and right heel ulceration Plan: Patient seen and evaluated with attending Dr. Owusu Labs, vitals and charts reviewed Wound cx: Proteus Mirabilis, MRSA R foot MRI: Marrow edema in the third distal phalanx, consistent with osteomyelitis Continue IV abx per ID LE arterial duplex: Normal MCKENNA/PVR at rest Right third digit wound dressed with bactroban, DSD, tape R heel dressed with bactroban, optifoam L heel dressed with optifoam Both legs dressed with tubigrip Patient wearing Multipodus boots Surgical shoe ordered - WBAT in a surgical shoe No plan for surgical intervention from podiatry at this time Will treat OM with skilled nursing PO abx per ID Podiatry will continue to follow while patient in hous <Robby Owusu - Last Filed: 10/31/17 14:53> Objective - Vital Signs/Intake and Output Vital Signs (last 24 hours): Temp Pulse Resp BP Pulse Ox 98.1 F 82 20 92/46 L 97 10/30/17 16:00 10/31/17 13:30 10/30/17 16:00 10/31/17 10:55 10/31/17 13:30 - Medications Medications: Current Medications Acetaminophen (Tylenol 325mg Tab) 650 mg PO Q6H PRN PRN Reason: Fever >100.4 F Aspirin (Ecotrin) 81 mg PO 0800 [facility] Last Admin: 10/31/17 08:36 Dose: 81 mg Atorvastatin Calcium (Lipitor) 20 mg PO DIN [facility] Last Admin: 10/30/17 17:31 Dose: 20 mg Calcium Carbonate (Caltrate) 600 mg PO DAILY [facility] Last Admin: 10/31/17 10:51 Dose: 600 mg Cholecalciferol (Vitamin D) 1,000 intlu PO DAILY [facility] Last Admin: 10/31/17 10:54 Dose: 1,000 intlu Dextrose (Dextrose 50% Inj) 0 ml IV STAT PRN; Protocol PRN Reason: Hypoglycemia Protocol Diphenhydramine HCl (Benadryl Maximum Strength 1%) 0 ea TOP Q6H PRN PRN Reason: Itching / Pruritus Docusate Sodium (Colace) 100 mg PO BID [facility] Last Admin: 10/31/17 10:53 Dose: Not Given Furosemide (Lasix) 20 mg PO 0600 [facility] Glipizide (Glucotrol) 5 mg PO 1700 [facility] Last Admin: 10/30/17 17:31 Dose: 5 mg Glipizide (Glucotrol) 5 mg PO 0800 [facility] Dextrose (Dextrose 5% In Water 1000 Ml) 1,000 mls @ 0 mls/hr IV .Q0M PRN; Protocol; Per Protocol PRN Reason: Hypoglycemia Protocol Insulin Detemir (Levemir) 30 unit SC HS [facility] Levofloxacin (Levaquin) 750 mg PO DAILY [facility] PRN Reason: Protocol Last Admin: 10/31/17 10:53 Dose: 750 mg Levothyroxine Sodium (Synthroid) 75 mcg PO 0600 [facility] PRN Reason: Protocol Last Admin: 10/31/17 06:03 Dose: 75 mcg Linezolid (Zyvox) 600 mg PO BID [facility] PRN Reason: Protocol Last Admin: 10/31/17 10:54 Dose: 600 mg Losartan Potassium (Cozaar) 25 mg PO DAILY [facility] Last Admin: 10/31/17 10:55 Dose: Not Given Meloxicam (Mobic) 15 mg PO DAILY PRN PRN Reason: pain in hand Last Admin: 10/30/17 22:38 Dose: 15 mg Metoprolol Tartrate (Lopressor) 25 mg PO HS [facility] Last Admin: 10/30/17 22:38 Dose: 25 mg Mupirocin (Bactroban Ointment) 0 gm TOP BID [facility] Last Admin: 10/31/17 10:40 Dose: 1 applic Nystatin (Mycostatin Cream) 0 ea TOP TID [facility] Last Admin: 10/31/17 14:08 Dose: Not Given Ondansetron HCl (Zofran Tab) 8 mg PO Q8H PRN PRN Reason: Nausea/Vomiting Pantoprazole Sodium (Protonix Ec Tab) 40 mg PO 0600 [facility] Last Admin: 10/31/17 06:03 Dose: 40 mg Potassium Chloride (Klor-Con 10) 10 meq PO QOTHERDAY [facility] Last Admin: 10/31/17 10:53 Dose: 10 meq Quetiapine Fumarate (Seroquel) 25 mg PO HS [facility] PRN Reason: Protocol Last Admin: 10/30/17 22:38 Dose: 25 mg Attending/Attestation - Attestation I have personally seen and examined this patient.: Yes I have fully participated in the care of the patient.: Yes I have reviewed all pertinent clinical information, including history, physical exam and plan: Yes
--- NOTE | 2017-10-31 15:46 | PN ---
Copied To: Liam Fernandez MD Attending MD: Liam Fernandez MD DATE: 10/31/2017 SUBJECTIVE: The patient is 81 years old, seen and examined, sitting in chair, seems to be comfortable. No nausea, vomiting, or diarrhea. PHYSICAL EXAMINATION: VITAL SIGNS: She is afebrile, pulse 89, respirations 20, and blood pressure 92/46. LUNGS: Bilateral good airflow. No rhonchi or crackle. HEART: S1 and S2 audible. ABDOMEN: Soft and nontender. No rebound, no guarding. NEUROLOGIC: She is awake, alert, oriented, and communicative. LABORATORY EXAM: Blood sugar this morning was 610 and after noon is 140. ASSESSMENT: 1. Right third toe osteomyelitis. 2. Hypertension. 3. Hyperlipidemia. 4. Hypothyroidism. 5. Insulin-dependent diabetes. 6. Deconditioning and difficulty walking. PLAN: I will increase her glipizide to 5 mg before breakfast and 5 mg before dinner. Currently, the patient is on p.o. Zyvox. She is also on p.o. Levaquin. I will also increase her Levemir to 30 units at night since her morning blood sugar is running high. We will reevaluate the patient in a.m. Liam Fernandez MD
--- NOTE | 2017-10-31 20:51 | CP.PCM.PN ---
Subjective - Date & Time of Evaluation Date of Evaluation: 10/31/17 Time of Evaluation: 12:30 - Subjective Subjective: No fevers, not in distress, no increased pain in the right foot, no nausea, no diarrhea. Objective - Vital Signs/Intake and Output Vital Signs (last 24 hours): Temp Pulse Resp BP Pulse Ox 98.1 F 87 20 137/67 98 10/30/17 16:00 10/30/17 16:00 10/30/17 16:00 10/30/17 16:00 10/30/17 16:00 - Medications Medications: Current Medications Acetaminophen (Tylenol 325mg Tab) 650 mg PO Q6H PRN PRN Reason: Fever >100.4 F Aspirin (Ecotrin) 81 mg PO 0800 [facility] Last Admin: 10/30/17 08:03 Dose: 81 mg Atorvastatin Calcium (Lipitor) 20 mg PO DIN [facility] Last Admin: 10/29/17 17:30 Dose: 20 mg Calcium Carbonate (Caltrate) 600 mg PO DAILY [facility] Last Admin: 10/30/17 10:47 Dose: 600 mg Cholecalciferol (Vitamin D) 1,000 intlu PO DAILY [facility] Last Admin: 10/30/17 10:49 Dose: 1,000 intlu Dextrose (Dextrose 50% Inj) 0 ml IV STAT PRN; Protocol PRN Reason: Hypoglycemia Protocol Diphenhydramine HCl (Benadryl Maximum Strength 1%) 0 ea TOP Q6H PRN PRN Reason: Itching / Pruritus Docusate Sodium (Colace) 100 mg PO BID [facility] Last Admin: 10/30/17 10:55 Dose: 100 mg Glipizide (Glucotrol) 5 mg PO 1700 [facility] Last Admin: 10/29/17 17:30 Dose: 5 mg Glipizide (Glucotrol) 2.5 mg PO 0800 [facility] Last Admin: 10/30/17 08:03 Dose: 2.5 mg Dextrose (Dextrose 5% In Water 1000 Ml) 1,000 mls @ 0 mls/hr IV .Q0M PRN; Protocol; Per Protocol PRN Reason: Hypoglycemia Protocol Insulin Detemir (Levemir) 23 unit SC HS [facility] Last Admin: 10/29/17 22:46 Dose: 23 u Levofloxacin (Levaquin) 750 mg PO DAILY [facility] PRN Reason: Protocol Last Admin: 10/30/17 10:48 Dose: 750 mg Levothyroxine Sodium (Synthroid) 75 mcg PO 0600 [facility] PRN Reason: Protocol Linezolid (Zyvox) 600 mg PO BID [facility] PRN Reason: Protocol Last Admin: 10/30/17 11:48 Dose: 600 mg Losartan Potassium (Cozaar) 25 mg PO DAILY [facility] Last Admin: 10/30/17 10:47 Dose: 25 mg Meloxicam (Mobic) 15 mg PO DAILY PRN PRN Reason: pain in hand Last Admin: 10/29/17 22:47 Dose: 15 mg Metoprolol Tartrate (Lopressor) 25 mg PO HS [facility] Last Admin: 10/29/17 22:45 Dose: 25 mg Mupirocin (Bactroban Ointment) 0 gm TOP BID [facility] Last Admin: 10/30/17 10:47 Dose: 1 applic Nystatin (Mycostatin Cream) 0 ea TOP TID [facility] Last Admin: 10/30/17 13:19 Dose: Not Given Ondansetron HCl (Zofran Tab) 8 mg PO Q8H PRN PRN Reason: Nausea/Vomiting Pantoprazole Sodium (Protonix Ec Tab) 40 mg PO 0600 [facility] Last Admin: 10/30/17 06:39 Dose: 40 mg Potassium Chloride (Klor-Con 10) 10 meq PO QOTHERDAY [facility] Last Admin: 10/29/17 10:22 Dose: 10 meq Quetiapine Fumarate (Seroquel) 25 mg PO [facility] PRN Reason: Protocol Last Admin: 10/29/17 22:45 Dose: 25 mg - Constitutional Appears: Non-toxic, Chronically Ill - Head Exam Head Exam: NORMAL INSPECTION - Respiratory Exam Respiratory Exam: Decreased Breath Sounds - Cardiovascular Exam Cardiovascular Exam: +S1, +S2 - GI/Abdominal Exam GI & Abdominal Exam: Soft. 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 and Proteus history of right heel ulcer, infected with MRSA with no evidence of osteomyelitis on MRI - S/P treatment with antibiotics peripheral arterial disease history of left heel infected ulcer with cellulitis without evidence of osteomyelitis on MRI history of 2nd right toe and metatarsal head osteomyelitis S/P surgery chronic renal failure obesity with BMI 38 osteoarthritis HTN DM hypothyroidism S/P left toe amputation S/P right hip surgery Plan continue Zyvox and Levaquin to complete 4-6 weeks of antibiotics with weekly ESR , CRP, CBC, CMP with outpatient follow up with Podiatry once discharged
[2017-10-31] MEDS: Insulin Detemir 100 units/ml Vial (Levemir) SC SCH (22:17)
[2017-11-01] MEDS: Pantoprazole 40 mg EC Tab PO SCH (05:51)
[2017-11-01] MEDS: Levothyroxine 75 MCG TAB PO SCH (05:51)
[2017-11-01] MEDS: Cholecalciferol 1,000 INTLU TAB PO SCH (09:39)
[2017-11-01] MEDS: levoFLOXacin 750 MG TAB PO SCH (09:39)
[2017-11-01] MEDS: Mupirocin 2% Ointment 15 GM TUBE TOP SCH ×2 (09:41→17:33)
[2017-11-01] MEDS: Nystatin 100,000 Units/gm Cream(15 gm) TOP SCH ×3 (09:41→17:33)
--- NOTE | 2017-11-01 13:52 | CP.PCM.PN ---
Subjective - Date & Time of Evaluation Date of Evaluation: 11/01/17 Time of Evaluation: 09:55 - Subjective Subjective: Comfortable, no fevers, no nausea, no abdominal pain, no diarrhea. Objective - Vital Signs/Intake and Output Vital Signs (last 24 hours): Temp Pulse Resp BP Pulse Ox 97.9 F 72 18 147/75 96 10/31/17 16:30 10/31/17 16:30 10/31/17 16:30 10/31/17 16:30 10/31/17 16:30 - Medications Medications: Current Medications Acetaminophen (Tylenol 325mg Tab) 650 mg PO Q6H PRN PRN Reason: Fever >100.4 F Aspirin (Ecotrin) 81 mg PO 0800 [facility] Last Admin: 10/31/17 08:36 Dose: 81 mg Atorvastatin Calcium (Lipitor) 20 mg PO DIN [facility] Last Admin: 10/31/17 17:40 Dose: 20 mg Calcium Carbonate (Caltrate) 600 mg PO DAILY [facility] Last Admin: 10/31/17 10:51 Dose: 600 mg Cholecalciferol (Vitamin D) 1,000 intlu PO DAILY [facility] Last Admin: 10/31/17 10:54 Dose: 1,000 intlu Dextrose (Dextrose 50% Inj) 0 ml IV STAT PRN; Protocol PRN Reason: Hypoglycemia Protocol Diphenhydramine HCl (Benadryl Maximum Strength 1%) 0 ea TOP Q6H PRN PRN Reason: Itching / Pruritus Docusate Sodium (Colace) 100 mg PO BID [facility] Last Admin: 10/31/17 17:41 Dose: Not Given Furosemide (Lasix) 20 mg PO 0600 [facility] Glipizide (Glucotrol) 5 mg PO 1700 [facility] Last Admin: 10/31/17 17:40 Dose: 5 mg Glipizide (Glucotrol) 5 mg PO 0800 [facility] Dextrose (Dextrose 5% In Water 1000 Ml) 1,000 mls @ 0 mls/hr IV .Q0M PRN; Protocol; Per Protocol PRN Reason: Hypoglycemia Protocol Insulin Detemir (Levemir) 30 unit SC HS [facility] Levofloxacin (Levaquin) 750 mg PO DAILY [facility] PRN Reason: Protocol Last Admin: 10/31/17 10:53 Dose: 750 mg Levothyroxine Sodium (Synthroid) 75 mcg PO 0600 [facility] PRN Reason: Protocol Last Admin: 10/31/17 06:03 Dose: 75 mcg Linezolid (Zyvox) 600 mg PO BID [facility] PRN Reason: Protocol Last Admin: 10/31/17 17:41 Dose: 600 mg Losartan Potassium (Cozaar) 25 mg PO DAILY [facility] Last Admin: 10/31/17 10:55 Dose: Not Given Meloxicam (Mobic) 15 mg PO DAILY PRN PRN Reason: pain in hand Last Admin: 10/30/17 22:38 Dose: 15 mg Metoprolol Tartrate (Lopressor) 25 mg PO HS [facility] Last Admin: 10/30/17 22:38 Dose: 25 mg Mupirocin (Bactroban Ointment) 0 gm TOP BID [facility] Last Admin: 10/31/17 17:39 Dose: Not Given Nystatin (Mycostatin Cream) 0 ea TOP TID [facility] Last Admin: 10/31/17 17:39 Dose: Not Given Ondansetron HCl (Zofran Tab) 8 mg PO Q8H PRN PRN Reason: Nausea/Vomiting Pantoprazole Sodium (Protonix Ec Tab) 40 mg PO 0600 [facility] Last Admin: 10/31/17 06:03 Dose: 40 mg Potassium Chloride (Klor-Con 10) 10 meq PO QOTHERDAY [facility] Last Admin: 10/31/17 10:53 Dose: 10 meq Quetiapine Fumarate (Seroquel) 25 mg PO [facility] PRN Reason: Protocol Last Admin: 10/30/17 22:38 Dose: 25 mg - Constitutional Appears: Chronically Ill - Head Exam Head Exam: NORMAL INSPECTION - ENT Exam ENT Exam: Mucous Membranes Moist - Neck Exam Neck Exam: absent: Meningismus - Respiratory Exam Respiratory Exam: Decreased Breath Sounds - Cardiovascular Exam Cardiovascular Exam: +S1, +S2 - GI/Abdominal Exam GI & Abdominal Exam: Soft. 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 and Proteus history of right heel ulcer, infected with MRSA with no evidence of osteomyelitis on MRI - S/P treatment with antibiotics peripheral arterial disease history of left heel infected ulcer with cellulitis without evidence of osteomyelitis on MRI history of 2nd right toe and metatarsal head osteomyelitis S/P surgery chronic renal failure obesity with BMI 38 osteoarthritis HTN DM hypothyroidism S/P left toe amputation S/P right hip surgery Plan continue Zyvox and Levaquin (Day 4) to complete 4-6 weeks of antibiotics with weekly ESR, CRP, CBC, CMP with outpatient follow up with Podiatry once discharged
--- NOTE | 2017-11-01 14:30 | PN ---
Copied To: Liam Fernandez MD Attending MD: Liam Fernandez MD DATE: 11/01/2017 SUBJECTIVE: The patient is 81 years old, seen and examined, lying in bed, seems to be comfortable. No nausea, no vomiting, no diarrhea. PHYSICAL EXAMINATION: VITAL SIGNS: The patient is afebrile, pulse 72, respirations 18, blood pressure 104/58. LUNGS: Bilateral good airflow. No rhonchi or crackle. HEART: S1, S2 audible. ABDOMEN: Soft, nontender. No rebound, no guarding. NEUROLOGICAL: The patient is awake, alert, oriented, communicative. EXTREMITIES: Bilateral legs, +1 edema. Her both feet are wrapped in a dressing done by the teacher theater arts. LABORATORY DATA: Blood sugar is 127. ASSESSMENT AND PLAN: 1. Right third toe osteomyelitis. 2. Hypertension. 3. Hyperlipidemia. 4. [id number] diabetes. PLAN: Currently, the patient is on Levaquin 750 daily and she is on Zyvox 600 twice a day. We will monitor blood sugar, encourage ambulation. We will follow up the patient in the morning. Liam Fernandez MD
--- NOTE | 2017-11-01 16:53 | CP.PCM.PN ---
<Aaron Jones - Last Filed: 11/01/17 16:50> Subjective - Date & Time of Evaluation Date of Evaluation: 11/01/17 Time of Evaluation: 16:50 - Subjective Subjective: Podiatry Consult note for Dr. Owusu 81 y/o female seen at bedside for infected right third toe infection, right heel ulcer and left second digit ulceration. She is AAO x 3 and NAD at time of visit. Reports that she got her surgical shoes today. Denies any further pedal complaints at this time. Denies any acute overnight events. Denies any recent N/ V/F/C/CP/SOB/D/posterior calf pain when squeezed. Objective - Vital Signs/Intake and Output Vital Signs (last 24 hours): Temp Pulse Resp BP Pulse Ox 97.9 F 68 18 104/58 L 96 10/31/17 16:30 11/01/17 09:40 10/31/17 16:30 11/01/17 09:40 10/31/17 16:30 - Medications Medications: Current Medications Acetaminophen (Tylenol 325mg Tab) 650 mg PO Q6H PRN PRN Reason: Fever >100.4 F Aspirin (Ecotrin) 81 mg PO 0800 [facility] Last Admin: 11/01/17 08:37 Dose: 81 mg Atorvastatin Calcium (Lipitor) 20 mg PO DIN [facility] Last Admin: 10/31/17 17:40 Dose: 20 mg Calcium Carbonate (Caltrate) 600 mg PO DAILY [facility] Last Admin: 11/01/17 09:39 Dose: 600 mg Cholecalciferol (Vitamin D) 1,000 intlu PO DAILY [facility] Last Admin: 11/01/17 09:39 Dose: 1,000 intlu Dextrose (Dextrose 50% Inj) 0 ml IV STAT PRN; Protocol PRN Reason: Hypoglycemia Protocol Diphenhydramine HCl (Benadryl Maximum Strength 1%) 0 ea TOP Q6H PRN PRN Reason: Itching / Pruritus Docusate Sodium (Colace) 100 mg PO BID [facility] Last Admin: 11/01/17 09:38 Dose: 100 mg Furosemide (Lasix) 20 mg PO 0600 [facility] Last Admin: 11/01/17 06:19 Dose: Not Given Glipizide (Glucotrol) 5 mg PO 1700 [facility] Last Admin: 10/31/17 17:40 Dose: 5 mg Glipizide (Glucotrol) 5 mg PO 0800 [facility] Last Admin: 11/01/17 08:38 Dose: 5 mg Dextrose (Dextrose 5% In Water 1000 Ml) 1,000 mls @ 0 mls/hr IV .Q0M PRN; Protocol; Per Protocol PRN Reason: Hypoglycemia Protocol Insulin Detemir (Levemir) 30 unit [address] [facility] Last Admin: 10/31/17 22:17 Dose: 30 u Levofloxacin (Levaquin) 750 mg PO DAILY [facility] PRN Reason: Protocol Last Admin: 11/01/17 09:39 Dose: 750 mg Levothyroxine Sodium (Synthroid) 75 mcg PO 0600 [facility] PRN Reason: Protocol Last Admin: 11/01/17 05:51 Dose: 75 mcg Linezolid (Zyvox) 600 mg PO BID [facility] PRN Reason: Protocol Last Admin: 11/01/17 09:38 Dose: 600 mg Losartan Potassium (Cozaar) 25 mg PO DAILY [facility] Last Admin: 11/01/17 09:40 Dose: Not Given Meloxicam (Mobic) 15 mg PO DAILY PRN PRN Reason: pain in hand Last Admin: 10/30/17 22:38 Dose: 15 mg Metoprolol Tartrate (Lopressor) 25 mg PO [facility] Last Admin: 10/31/17 21:40 Dose: 25 mg Mupirocin (Bactroban Ointment) 0 gm TOP BID [facility] Last Admin: 11/01/17 09:41 Dose: 1 applic Nystatin (Mycostatin Cream) 0 ea TOP TID [facility] Last Admin: 11/01/17 09:41 Dose: 1 applic Ondansetron HCl (Zofran Tab) 8 mg PO Q8H PRN PRN Reason: Nausea/Vomiting Pantoprazole Sodium (Protonix Ec Tab) 40 mg PO 0600 [facility] Last Admin: 11/01/17 05:51 Dose: 40 mg Potassium Chloride (Klor-Con 10) 10 meq PO QOTHERDAY [facility] Last Admin: 10/31/17 10:53 Dose: 10 meq Quetiapine Fumarate (Seroquel) 25 [address] [facility] PRN Reason: Protocol Last Admin: 10/31/17 21:37 Dose: 25 mg - Constitutional Appears: Well, Non-toxic, No Acute Distress - Extremities Exam Additional comments: LE focused exam Vasc: DP/PT pulses faintly palpable 1/4 b/l. Skin temperature warm to warm from proximal to distal. CFT < 3 seconds to all digits b/l. Moderate edema noted to right third digit and left second digit Neuro: Epicritic and protective sensation grossly absent b/l Derm: Right third digit - 1 cm x 1 cm x 0.3 cm dorsal third digit ulceration noted. No periwound erythema, minimal serous drainage, no malodor, no purulence , negative probe to bone, no tracking/tunneling/undermining noted. Dorsal eschar noted surrounding wound. No other clinical signs of infection noted. Wound appears to be stable at this time. Right heel - 3 cm x 2 cm x 0.3 cm posterior right heel ulceration. Mild periwound erythema, minimal serous drainage, no malodor, no purulence, negative probe to bone, no tracking/tunneling/undermining noted. No other clinical signs of infection noted Left second digit - 0.1 cm x 0.1 cm x 0.1 cm dorsal second digit ulceration. No periwound erythema or serous drainage, no malodor, no purulence, negative probe to bone, no tracking/tunneling/undermining noted. No other clinical signs of infection noted MSK: No POP to any ulceration site. ROM WNL at all major joints for age. MMT 4/ 5 in all major muscle groups. No other gross deformities noted - Neurological Exam Neurological Exam: Alert, Awake, Oriented x3 - Psychiatric Exam Psychiatric exam: Normal Affect, Normal Mood Assessment and Plan - Assessment and Plan (Free Text) Assessment: 81 y/o female seen and evaluated at bedside for right third digit ulceration with underlying OM, left second digit ulceration and right heel ulceration Plan: Patient seen and evaluated with attending Dr. Owusu Labs, vitals and charts reviewed Wound cx: Proteus Mirabilis, MRSA R foot MRI: Marrow edema in the third distal phalanx, consistent with osteomyelitis Continue IV abx per ID LE arterial duplex: Normal MCKENNA/PVR at rest Right third digit wound dressed with bactroban, DSD, tape R heel dressed with bactroban, optifoam L heel dressed with optifoam Both legs dressed with tubigrip Patient wearing Surgical shoe Surgical shoe ordered - WBAT in a surgical shoe No plan for surgical intervention from podiatry at this time Will treat OM with terminal operations supervisor PO abx per ID Podiatry will continue to follow while patient in house <Robby Owusu - Last Filed: 11/02/17 09:25> Objective - Vital Signs/Intake and Output Vital Signs (last 24 hours): Temp Pulse Resp BP Pulse Ox 98.4 F 90 18 122/59 L 98 11/01/17 16:00 11/01/17 22:18 11/01/17 16:00 11/02/17 06:35 11/01/17 16:00 - Medications Medications: Current Medications Acetaminophen (Tylenol 325mg Tab) 650 mg PO Q6H PRN PRN Reason: Fever >100.4 F Aspirin (Ecotrin) 81 mg PO 0800 [facility] Last Admin: 11/02/17 08:08 Dose: 81 mg Atorvastatin Calcium (Lipitor) 20 mg PO DIN [facility] Last Admin: 11/01/17 17:31 Dose: 20 mg Calcium Carbonate (Caltrate) 600 mg PO DAILY [facility] Last Admin: 11/01/17 09:39 Dose: 600 mg Cholecalciferol (Vitamin D) 1,000 intlu PO DAILY [facility] Last Admin: 11/01/17 09:39 Dose: 1,000 intlu Dextrose (Dextrose 50% Inj) 0 ml IV STAT PRN; Protocol PRN Reason: Hypoglycemia Protocol Diphenhydramine HCl (Benadryl Maximum Strength 1%) 0 ea TOP Q6H PRN PRN Reason: Itching / Pruritus Docusate Sodium (Colace) 100 mg PO BID [facility] Last Admin: 11/01/17 17:31 Dose: 100 mg Furosemide (Lasix) 20 mg PO 0600 [facility] Last Admin: 11/02/17 06:35 Dose: Not Given Glipizide (Glucotrol) 5 mg PO 1700 [facility] Last Admin: 11/01/17 17:31 Dose: 5 mg Glipizide (Glucotrol) 5 mg PO 0800 [facility] Last Admin: 11/02/17 08:08 Dose: 5 mg Dextrose (Dextrose 5% In Water 1000 Ml) 1,000 mls @ 0 mls/hr IV .Q0M PRN; Protocol; Per Protocol PRN Reason: Hypoglycemia Protocol Insulin Detemir (Levemir) 30 unit SC HS [facility] Last Admin: 11/01/17 22:19 Dose: 30 u Levofloxacin (Levaquin) 750 mg PO 0900 [facility] PRN Reason: Protocol Levothyroxine Sodium (Synthroid) 75 mcg PO 0600 [facility] PRN Reason: Protocol Last Admin: 11/02/17 06:32 Dose: 75 mcg Linezolid (Zyvox) 600 mg PO BID [facility] PRN Reason: Protocol Last Admin: 11/01/17 17:32 Dose: 600 mg Losartan Potassium (Cozaar) 25 mg PO DAILY [facility] Last Admin: 11/01/17 09:40 Dose: Not Given Meloxicam (Mobic) 15 mg PO DAILY PRN PRN Reason: pain in hand Last Admin: 10/30/17 22:38 Dose: 15 mg Metoprolol Tartrate (Lopressor) 25 mg PO HS [facility] Last Admin: 11/01/17 22:18 Dose: 25 mg Mupirocin (Bactroban Ointment) 0 gm TOP BID [facility] Last Admin: 11/01/17 17:33 Dose: 1 applic Nystatin (Mycostatin Cream) 0 ea TOP TID [facility] Last Admin: 11/01/17 17:33 Dose: 1 applic Ondansetron HCl (Zofran Tab) 8 mg PO Q8H PRN PRN Reason: Nausea/Vomiting Pantoprazole Sodium (Protonix Ec Tab) 40 mg PO 0600 [facility] Last Admin: 11/02/17 06:32 Dose: 40 mg Potassium Chloride (Klor-Con 10) 10 meq PO QOTHERDAY [facility] Last Admin: 10/31/17 10:53 Dose: 10 meq Quetiapine Fumarate (Seroquel) 25 mg PO HS [facility] PRN Reason: Protocol Last Admin: 11/01/17 22:18 Dose: 25 mg Attending/Attestation - Attestation I have personally seen and examined this patient.: Yes I have fully participated in the care of the patient.: Yes I have reviewed all pertinent clinical information, including history, physical exam and plan: Yes
[2017-11-01] MEDS: Insulin Detemir 100 units/ml Vial (Levemir) SC SCH (22:19)
[2017-11-02] MEDS: Pantoprazole 40 mg EC Tab PO SCH (06:32)
[2017-11-02] MEDS: Levothyroxine 75 MCG TAB PO SCH (06:32)
[2017-11-02] MEDS: Mupirocin 2% Ointment 15 GM TUBE TOP SCH ×2 (09:42→17:15)
[2017-11-02] MEDS: Nystatin 100,000 Units/gm Cream(15 gm) TOP SCH ×3 (09:42→17:16)
[2017-11-02] MEDS: levoFLOXacin 750 MG TAB PO SCH (09:44)
--- NOTE | 2017-11-02 09:45 | PN ---
Copied To: Clay Oneill MD Attending MD: Clay Oneill MD DATE: 11/02/2017 SUBJECTIVE: The patient is in bed, in no acute distress, nontoxic. PHYSICAL EXAMINATION: VITAL SIGNS: On exam, temperature is 98, blood pressure is 120/50, respiratory rate of 18, heart rate of 84. HEENT: Examination of HEENT is unremarkable. NECK: Supple. LUNGS: Have decreased breath sounds. HEART: Normal S1, S2. ABDOMEN: Soft, nontender. LABORATORY DATA: Laboratory examination is reviewed. 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 Currently on Zyvox and Levaquin day #5, would complete 4-6 weeks of antibiotics with a weekly sed rate, C-reactive protein, CBC and chemistries. Careful followup with Hematology and platelets. Prolonged use of Zyvox caused bone marrow suppression. Clay Oneill MD
[2017-11-02] MEDS: Cholecalciferol 1,000 INTLU TAB PO SCH (09:46)
[2017-11-02] MEDS: Potassium Chloride 10 mEq ER Tab PO SCH (09:46)
--- NOTE | 2017-11-02 10:44 | CP.PCM.PN ---
<Aixa Janejamal - Last Filed: 11/02/17 10:41> Subjective - Date & Time of Evaluation Date of Evaluation: 11/02/17 Time of Evaluation: 10:41 - Subjective Subjective: Podiatry Consult note for Dr. Owusu 81 y/o female seen and evaluated at bedside for infected right third toe infection, right heel ulcer and left second digit ulceration. She is AAO x 3 and NAD at time of visit. Patient is sitting comfortably in chair bedside. Denies any further pedal complaints at this time. Denies any acute overnight events. Denies any recent N/V/F/C/CP/SOB/D/posterior calf pain when squeezed. Objective - Vital Signs/Intake and Output Vital Signs (last 24 hours): Temp Pulse Resp BP Pulse Ox 98.7 F 86 18 92/47 L 98 11/02/17 10:00 11/02/17 10:00 11/02/17 10:00 11/02/17 10:00 11/02/17 10:00 - Medications Medications: Current Medications Acetaminophen (Tylenol 325mg Tab) 650 mg PO Q6H PRN PRN Reason: Fever >100.4 F Aspirin (Ecotrin) 81 mg PO 0800 [facility] Last Admin: 11/02/17 08:08 Dose: 81 mg Atorvastatin Calcium (Lipitor) 20 mg PO DIN [facility] Last Admin: 11/01/17 17:31 Dose: 20 mg Calcium Carbonate (Caltrate) 600 mg PO DAILY [facility] Last Admin: 11/02/17 09:44 Dose: 600 mg Cholecalciferol (Vitamin D) 1,000 intlu PO DAILY [facility] Last Admin: 11/02/17 09:46 Dose: 1,000 intlu Dextrose (Dextrose 50% Inj) 0 ml IV STAT PRN; Protocol PRN Reason: Hypoglycemia Protocol Diphenhydramine HCl (Benadryl Maximum Strength 1%) 0 ea TOP Q6H PRN PRN Reason: Itching / Pruritus Docusate Sodium (Colace) 100 mg PO BID [facility] Last Admin: 11/02/17 09:45 Dose: Not Given Furosemide (Lasix) 20 mg PO 0600 [facility] Last Admin: 11/02/17 06:35 Dose: Not Given Glipizide (Glucotrol) 5 mg PO 1700 [facility] Last Admin: 11/01/17 17:31 Dose: 5 mg Glipizide (Glucotrol) 5 mg PO 0800 [facility] Last Admin: 11/02/17 08:08 Dose: 5 mg Dextrose (Dextrose 5% In Water 1000 Ml) 1,000 mls @ 0 mls/hr IV .Q0M PRN; Protocol; Per Protocol PRN Reason: Hypoglycemia Protocol Insulin Detemir (Levemir) [address] [facility] Last Admin: 11/01/17 22:19 Dose: 30 u Levofloxacin (Levaquin) 750 mg PO 0900 [facility] PRN Reason: Protocol Last Admin: 11/02/17 09:44 Dose: 750 mg Levothyroxine Sodium (Synthroid) 75 mcg PO 0600 [facility] PRN Reason: Protocol Last Admin: 11/02/17 06:32 Dose: 75 mcg Linezolid (Zyvox) 600 mg PO BID [facility] PRN Reason: Protocol Last Admin: 11/02/17 09:46 Dose: 600 mg Losartan Potassium (Cozaar) 25 mg PO DAILY [facility] Last Admin: 11/02/17 09:45 Dose: Not Given Meloxicam (Mobic) 15 mg PO DAILY PRN PRN Reason: pain in hand Last Admin: 10/30/17 22:38 Dose: 15 mg Metoprolol Tartrate (Lopressor) [address] [facility] Last Admin: 11/01/17 22:18 Dose: 25 mg Mupirocin (Bactroban Ointment) 0 gm TOP BID [facility] Last Admin: 11/02/17 09:42 Dose: 1 applic Nystatin (Mycostatin Cream) 0 ea TOP TID [facility] Last Admin: 11/02/17 09:42 Dose: 1 applic Ondansetron HCl (Zofran Tab) 8 mg PO Q8H PRN PRN Reason: Nausea/Vomiting Pantoprazole Sodium (Protonix Ec Tab) 40 mg PO 0600 [facility] Last Admin: 11/02/17 06:32 Dose: 40 mg Potassium Chloride (Klor-Con 10) 10 meq PO QOTHERDAY [facility] Last Admin: 11/02/17 09:46 Dose: 10 meq Quetiapine Fumarate (Seroquel) [address] [facility] PRN Reason: Protocol Last Admin: 11/01/17 22:18 Dose: 25 mg - Constitutional Appears: Well, Non-toxic, No Acute Distress - Head Exam Head Exam: ATRAUMATIC, NORMOCEPHALIC - Extremities Exam Additional comments: LE focused exam Vasc: DP/PT pulses faintly palpable 1/4 b/l. Skin temperature warm to warm from proximal to distal. CFT < 3 seconds to all digits b/l. Moderate edema noted to right third digit and left second digit Neuro: Epicritic and protective sensation grossly absent b/l Derm: Right third digit - 1 cm x 1 cm x 0.3 cm dorsal third digit ulceration noted. No periwound erythema, minimal serous drainage, no malodor, no purulence , negative probe to bone, no tracking/tunneling/undermining noted. Dorsal eschar noted surrounding wound. No other clinical signs of infection noted. Wound appears to be stable at this time. Right heel - 3 cm x 2 cm x 0.3 cm posterior right heel ulceration. Mild periwound erythema, minimal serous drainage, no malodor, no purulence, negative probe to bone, no tracking/tunneling/undermining noted. No other clinical signs of infection noted Left second digit - 0.1 cm x 0.1 cm x 0.1 cm dorsal second digit ulceration. No periwound erythema or serous drainage, no malodor, no purulence, negative probe to bone, no tracking/tunneling/undermining noted. No other clinical signs of infection noted Left heel- fibrogranular wound to plantar heel with no active drainage, no malodor, no probe to bone, no tunneling, no tracking, no clinical signs of infection noted MSK: No POP to any ulceration site. ROM WNL at all major joints for age. MMT 4/ 5 in all major muscle groups. No other gross deformities noted - Neurological Exam Neurological Exam: Alert, Awake, Oriented x3 - Psychiatric Exam Psychiatric exam: Normal Affect, Normal Mood Assessment and Plan - Assessment and Plan (Free Text) Assessment: 81 y/o female seen and evaluated at bedside for right third digit ulceration with underlying OM, left second digit ulceration and bilateral heel ulcerations Plan: Patient seen and evaluated with attending Dr. Owusu Labs, vitals and charts reviewed Wound cx: Proteus Mirabilis, MRSA R foot MRI: Marrow edema in the third distal phalanx, consistent with osteomyelitis Continue IV abx per ID LE arterial duplex: Normal MCKENNA/PVR at rest Right third digit wound dressed with bactroban, DSD, tape R heel dressed with bactroban, optifoam L heel dressed with bactroban, optifoam Santyl ordered for the wound to the left heel Both legs dressed with tubigrip Patient to continue wearing the surgical shoe No plan for surgical intervention from podiatry at this time Will treat OM with water server PO abx per ID Podiatry will continue to follow while patient in house <Robby Owusu - Last Filed: 11/02/17 14:20> Objective - Vital Signs/Intake and Output Vital Signs (last 24 hours): Temp Pulse Resp BP Pulse Ox 98.7 F 86 18 92/47 L 98 11/02/17 10:00 11/02/17 10:00 11/02/17 10:00 11/02/17 10:00 11/02/17 10:00 - Medications Medications: Current Medications Acetaminophen (Tylenol 325mg Tab) 650 mg PO Q6H PRN PRN Reason: Fever >100.4 F Aspirin (Ecotrin) 81 mg PO 0800 [facility] Last Admin: 11/02/17 08:08 Dose: 81 mg Atorvastatin Calcium (Lipitor) 20 mg PO DIN [facility] Last Admin: 11/01/17 17:31 Dose: 20 mg Calcium Carbonate (Caltrate) 600 mg PO DAILY [facility] Last Admin: 11/02/17 09:44 Dose: 600 mg Cholecalciferol (Vitamin D) 1,000 intlu PO DAILY [facility] Last Admin: 11/02/17 09:46 Dose: 1,000 intlu Collagenase (Santyl) 0 gm TOP DAILY [facility] Dextrose (Dextrose 50% Inj) 0 ml IV STAT PRN; Protocol PRN Reason: Hypoglycemia Protocol Diphenhydramine HCl (Benadryl Maximum Strength 1%) 0 ea TOP Q6H PRN PRN Reason: Itching / Pruritus Diphenhydramine HCl (Benadryl) 25 mg PO Q6 PRN PRN Reason: Itching / Pruritus Docusate Sodium (Colace) 100 mg PO BID [facility] Last Admin: 11/02/17 09:45 Dose: Not Given Furosemide (Lasix) 20 mg PO 0600 [facility] Last Admin: 11/02/17 06:35 Dose: Not Given Glipizide (Glucotrol) 5 mg PO 1700 [facility] Last Admin: 11/01/17 17:31 Dose: 5 mg Glipizide (Glucotrol) 5 mg PO 0800 [facility] Last Admin: 11/02/17 08:08 Dose: 5 mg Dextrose (Dextrose 5% In Water 1000 Ml) 1,000 mls @ 0 mls/hr IV .Q0M PRN; Protocol; Per Protocol PRN Reason: Hypoglycemia Protocol Insulin Detemir (Levemir) [address] [facility] Last Admin: 11/01/17 22:19 Dose: 30 u Levofloxacin (Levaquin) 750 mg PO 0900 [facility] PRN Reason: Protocol Last Admin: 11/02/17 09:44 Dose: 750 mg Levothyroxine Sodium (Synthroid) 75 mcg PO 0600 [facility] PRN Reason: Protocol Last Admin: 11/02/17 06:32 Dose: 75 mcg Linezolid (Zyvox) 600 mg PO BID [facility] PRN Reason: Protocol Last Admin: 11/02/17 09:46 Dose: 600 mg Losartan Potassium (Cozaar) 25 mg PO DAILY [facility] Last Admin: 11/02/17 09:45 Dose: Not Given Meloxicam (Mobic) 15 mg PO DAILY PRN PRN Reason: pain in hand Last Admin: 10/30/17 22:38 Dose: 15 mg Metoprolol Tartrate (Lopressor) [address] [facility] Last Admin: 11/01/17 22:18 Dose: 25 mg Mupirocin (Bactroban Ointment) 0 gm TOP BID [facility] Last Admin: 11/02/17 09:42 Dose: 1 applic Nystatin (Mycostatin Cream) 0 ea TOP TID [facility] Last Admin: 11/02/17 14:17 Dose: Not Given Ondansetron HCl (Zofran Tab) 8 mg PO Q8H PRN PRN Reason: Nausea/Vomiting Pantoprazole Sodium (Protonix Ec Tab) 40 mg PO 0600 [facility] Last Admin: 11/02/17 06:32 Dose: 40 mg Potassium Chloride (Klor-Con 10) 10 meq PO QOTHERDAY [facility] Last Admin: 11/02/17 09:46 Dose: 10 meq Quetiapine Fumarate (Seroquel) [address] [facility] PRN Reason: Protocol Last Admin: 11/01/17 22:18 Dose: 25 mg Attending/Attestation - Attestation I have personally seen and examined this patient.: Yes I have fully participated in the care of the patient.: Yes I have reviewed all pertinent clinical information, including history, physical exam and plan: Yes
--- NOTE | 2017-11-02 12:48 | PN ---
Copied To: Liam Fernandez MD Attending MD: Liam Fernandez MD DATE: 11/02/2017 SUBJECTIVE: The patient is 81 years old, seen and examined. Seems to be happy, doing well. Making progress in therapy. Eating and tolerating. No nausea, vomiting, diarrhea. No abdominal pain. No rectal bleeding. No constipation. PHYSICAL EXAMINATION: VITAL SIGNS: She is afebrile, pulse 86, respirations 18, blood pressure 92/47. LUNGS: Bilateral good airflow. No rhonchi or crackle. HEART: S1 and S2 audible. ABDOMEN: Soft, obese, nontender. No rebound. No guarding. NEUROLOGICAL: The patient is awake, alert, oriented, able to communicate. LABORATORY EXAM: Blood sugar is 184. ASSESSMENT: 1. Right third toe osteomyelitis. 2. Rrr-lojqcxa-khfljulbi diabetes. 3. Hypertension. 4. Hyperlipidemia. 5. Deconditioning and difficulty walking. PLAN: Currently, the patient is on Levaquin and Zyvox. We will continue on current regimen of insulin. Start her on Zyvox. We will follow up the patient in the a.m. Liam Fernandez MD
[2017-11-02] MEDS: Insulin Detemir 100 units/ml Vial (Levemir) SC SCH (21:59)
[2017-11-03] MEDS: Levothyroxine 75 MCG TAB PO SCH (06:15)
[2017-11-03] MEDS: Pantoprazole 40 mg EC Tab PO SCH (06:15)
[2017-11-03] MEDS: levoFLOXacin 750 MG TAB PO SCH (10:00)
[2017-11-03] MEDS ORDERED: Collagenase 250 Units/gm Ointment(30 gm) TOP SCH (10:00)
--- NOTE | 2017-11-03 10:25 | CP.PCM.PN ---
<Aaron Jones - Last Filed: 11/03/17 10:23> Subjective - Date & Time of Evaluation Date of Evaluation: 11/03/17 Time of Evaluation: 10:23 - Subjective Subjective: Podiatry Consult note for Dr. Owusu 81 y/o female seen and evaluated at bedside for infected right third toe infection, right heel ulcer and left second digit ulceration. She is AAO x 3 and NAD at time of visit. Patient is sitting comfortably in bed. Denies any further pedal complaints at this time. Denies any acute overnight events. Denies any recent N/V/F/C/CP/SOB/D/posterior calf pain when squeezed. Objective - Vital Signs/Intake and Output Vital Signs (last 24 hours): Temp Pulse Resp BP Pulse Ox 98.6 F 101 H 18 110/62 97 11/02/17 16:00 11/02/17 22:07 11/02/17 16:00 11/03/17 06:17 11/02/17 16:16 - Medications Medications: Current Medications Acetaminophen (Tylenol 325mg Tab) 650 mg PO Q6H PRN PRN Reason: Fever >100.4 F Aspirin (Ecotrin) 81 mg PO 0800 [facility] Last Admin: 11/02/17 08:08 Dose: 81 mg Atorvastatin Calcium (Lipitor) 20 mg PO DIN [facility] Last Admin: 11/02/17 17:16 Dose: 20 mg Calcium Carbonate (Caltrate) 600 mg PO DAILY [facility] Last Admin: 11/02/17 09:44 Dose: 600 mg Cholecalciferol (Vitamin D) 1,000 intlu PO DAILY [facility] Last Admin: 11/02/17 09:46 Dose: 1,000 intlu Collagenase (Santyl) 0 gm TOP DAILY [facility] Dextrose (Dextrose 50% Inj) 0 ml IV STAT PRN; Protocol PRN Reason: Hypoglycemia Protocol Diphenhydramine HCl (Benadryl Maximum Strength 1%) 0 ea TOP Q6H PRN PRN Reason: Itching / Pruritus Diphenhydramine HCl (Benadryl) 25 mg PO Q6 PRN PRN Reason: Itching / Pruritus Last Admin: 11/02/17 19:40 Dose: 25 mg Docusate Sodium (Colace) 100 mg PO BID [facility] Last Admin: 11/02/17 17:19 Dose: 100 mg Furosemide (Lasix) 20 mg PO 0600 [facility] Last Admin: 11/03/17 06:17 Dose: 20 mg Glipizide (Glucotrol) 5 mg PO 1700 [facility] Last Admin: 11/02/17 17:16 Dose: 5 mg Glipizide (Glucotrol) 5 mg PO 0800 [facility] Last Admin: 11/02/17 08:08 Dose: 5 mg Dextrose (Dextrose 5% In Water 1000 Ml) 1,000 mls @ 0 mls/hr IV .Q0M PRN; Protocol; Per Protocol PRN Reason: Hypoglycemia Protocol Insulin Detemir (Levemir) 30 unit SC [facility] Last Admin: 11/02/17 21:59 Dose: Not Given Levofloxacin (Levaquin) 750 mg PO 0900 [facility] PRN Reason: Protocol Last Admin: 11/02/17 09:44 Dose: 750 mg Levothyroxine Sodium (Synthroid) 75 mcg PO 0600 [facility] PRN Reason: Protocol Last Admin: 11/03/17 06:15 Dose: 75 mcg Linezolid (Zyvox) 600 mg PO BID [facility] PRN Reason: Protocol Last Admin: 11/02/17 17:11 Dose: 600 mg Losartan Potassium (Cozaar) 25 mg PO DAILY [facility] Last Admin: 11/02/17 09:45 Dose: Not Given Meloxicam (Mobic) 15 mg PO DAILY PRN PRN Reason: pain in hand Last Admin: 11/02/17 22:08 Dose: 15 mg Metoprolol Tartrate (Lopressor) 25 mg PO [facility] Last Admin: 11/02/17 22:07 Dose: 25 mg Mupirocin (Bactroban Ointment) 0 gm TOP BID [facility] Last Admin: 11/02/17 17:15 Dose: 1 applic Nystatin (Mycostatin Cream) 0 ea TOP TID [facility] Last Admin: 11/02/17 17:16 Dose: 1 applic Ondansetron HCl (Zofran Tab) 8 mg PO Q8H PRN PRN Reason: Nausea/Vomiting Pantoprazole Sodium (Protonix Ec Tab) 40 mg PO 0600 [facility] Last Admin: 11/03/17 06:15 Dose: 40 mg Potassium Chloride (Klor-Con 10) 10 meq PO QOTHERDAY [facility] Last Admin: 11/02/17 09:46 Dose: 10 meq Quetiapine Fumarate (Seroquel) 25 mg PO HS [facility] PRN Reason: Protocol Last Admin: 11/02/17 22:02 Dose: 25 mg - Constitutional Appears: Well, Non-toxic, No Acute Distress - Extremities Exam Additional comments: LE focused exam Vasc: DP/PT pulses faintly palpable 1/4 b/l. Skin temperature warm to warm from proximal to distal. CFT < 3 seconds to all digits b/l. Moderate edema noted to right third digit and left second digit Neuro: Epicritic and protective sensation grossly absent b/l Derm: Right third digit - 1 cm x 1 cm x 0.3 cm dorsal third digit ulceration noted. No periwound erythema, minimal serous drainage, no malodor, no purulence , negative probe to bone, no tracking/tunneling/undermining noted. Dorsal eschar noted surrounding wound. No other clinical signs of infection noted. Wound appears to be stable at this time. Right heel - 3 cm x 2 cm x 0.3 cm posterior right heel ulceration. Mild periwound erythema, minimal serous drainage, no malodor, no purulence, negative probe to bone, no tracking/tunneling/undermining noted. No other clinical signs of infection noted Left second digit - 0.1 cm x 0.1 cm x 0.1 cm dorsal second digit ulceration. No periwound erythema or serous drainage, no malodor, no purulence, negative probe to bone, no tracking/tunneling/undermining noted. No other clinical signs of infection noted Left heel- fibrogranular wound to plantar heel with no active drainage, no malodor, no probe to bone, no tunneling, no tracking, no clinical signs of infection noted MSK: No POP to any ulceration site. ROM WNL at all major joints for age. MMT 4/ 5 in all major muscle groups. No other gross deformities noted - Neurological Exam Neurological Exam: Alert, Awake, Oriented x3 Assessment and Plan - Assessment and Plan (Free Text) Assessment: 81 y/o female seen and evaluated at bedside for right third digit ulceration with underlying OM, left second digit ulceration and bilateral heel ulcerations Plan: Patient seen and evaluated with attending Dr. Owusu Labs, vitals and charts reviewed Wound cx: Proteus Mirabilis, MRSA R foot MRI: Marrow edema in the third distal phalanx, consistent with osteomyelitis Continue IV abx per ID LE arterial duplex: Normal MCKENNA/PVR at rest Right third digit wound dressed with bactroban, DSD, tape R heel dressed with bactroban, optifoam L heel dressed with bactroban, optifoam Santyl ordered for the wound to the left heel Both legs dressed with tubigrip Patient to continue wearing the surgical shoe No plan for surgical intervention from podiatry at this time Will treat OM with senior care PO abx per ID Podiatry will continue to follow while patient in house <Robby Owusu - Last Filed: 11/04/17 17:02> Objective - Vital Signs/Intake and Output Vital Signs (last 24 hours): Temp Pulse Resp BP Pulse Ox 98.2 F 93 H 16 108/56 L 100 11/04/17 10:00 11/04/17 11:58 11/04/17 10:00 11/04/17 10:00 11/04/17 11:58 - Medications Medications: Current Medications Acetaminophen (Tylenol 325mg Tab) 650 mg PO Q6H PRN PRN Reason: Fever >100.4 F Aspirin (Ecotrin) 81 mg PO 0800 [facility] Last Admin: 11/04/17 08:29 Dose: 81 mg Atorvastatin Calcium (Lipitor) 20 mg PO DIN [facility] Last Admin: 11/03/17 17:24 Dose: 20 mg Calcium Carbonate (Caltrate) 600 mg PO DAILY [facility] Last Admin: 11/04/17 09:52 Dose: 600 mg Cholecalciferol (Vitamin D) 1,000 intlu PO DAILY [facility] Last Admin: 11/04/17 09:53 Dose: 1,000 intlu Collagenase (Santyl) 0 gm TOP DAILY [facility] Last Admin: 11/03/17 11:00 Dose: 1 applic Dextrose (Dextrose 50% Inj) 0 ml IV STAT PRN; Protocol PRN Reason: Hypoglycemia Protocol Diphenhydramine HCl (Benadryl Maximum Strength 1%) 0 ea TOP Q6H PRN PRN Reason: Itching / Pruritus Diphenhydramine HCl (Benadryl) 25 mg PO Q6 PRN PRN Reason: Itching / Pruritus Last Admin: 11/02/17 19:40 Dose: 25 mg Docusate Sodium (Colace) 100 mg PO BID [facility] Last Admin: 11/04/17 09:52 Dose: 100 mg Furosemide (Lasix) 20 mg PO 0600 [facility] Last Admin: 08/17/18 06:05 Dose: Not Given Glipizide (Glucotrol) 5 mg PO 1700 [facility] Last Admin: 11/03/17 17:24 Dose: 5 mg Glipizide (Glucotrol) 5 mg PO 0800 [facility] Last Admin: 11/04/17 08:30 Dose: 5 mg Dextrose (Dextrose 5% In Water 1000 Ml) 1,000 mls @ 0 mls/hr IV .Q0M PRN; Protocol; Per Protocol PRN Reason: Hypoglycemia Protocol Insulin Detemir (Levemir) 30 unit SC [facility] Last Admin: 11/03/17 22:14 Dose: 30 u Levofloxacin (Levaquin) 750 mg PO 0900 [facility] PRN Reason: Protocol Last Admin: 11/04/17 09:53 Dose: 750 mg Levothyroxine Sodium (Synthroid) 75 mcg PO 0600 [facility] PRN Reason: Protocol Last Admin: 11/04/17 06:04 Dose: 75 mcg Linezolid (Zyvox) 600 mg PO BID [facility] PRN Reason: Protocol Last Admin: 11/04/17 09:53 Dose: 600 mg Losartan Potassium (Cozaar) 25 mg PO DAILY [facility] Last Admin: 11/04/17 09:52 Dose: 25 mg Meloxicam (Mobic) 15 mg PO DAILY PRN PRN Reason: pain in hand Last Admin: 11/03/17 22:19 Dose: 15 mg Metoprolol Tartrate (Lopressor) 25 mg PO [facility] Last Admin: 11/03/17 22:17 Dose: Not Given Mupirocin (Bactroban Ointment) 0 gm TOP BID [facility] Last Admin: 11/03/17 17:23 Dose: 1 applic Nystatin (Mycostatin Cream) 0 ea TOP TID [facility] Last Admin: 11/03/17 17:22 Dose: 1 applic Ondansetron HCl (Zofran Tab) 8 mg PO Q8H PRN PRN Reason: Nausea/Vomiting Pantoprazole Sodium (Protonix Ec Tab) 40 mg PO 0600 [facility] Last Admin: 11/04/17 06:04 Dose: 40 mg Potassium Chloride (Klor-Con 10) 10 meq PO QOTHERDAY [facility] Last Admin: 11/04/17 09:53 Dose: 10 meq Quetiapine Fumarate (Seroquel) 25 mg PO [facility] PRN Reason: Protocol Last Admin: 11/03/17 22:13 Dose: 25 mg Attending/Attestation - Attestation I have personally seen and examined this patient.: Yes I have fully participated in the care of the patient.: Yes I have reviewed all pertinent clinical information, including history, physical exam and plan: Yes
[2017-11-03] MEDS: Cholecalciferol 1,000 INTLU TAB PO SCH (10:56)
[2017-11-03] MEDS: Nystatin 100,000 Units/gm Cream(15 gm) TOP SCH ×3 (11:03→17:22)
[2017-11-03] MEDS: Mupirocin 2% Ointment 15 GM TUBE TOP SCH ×2 (11:03→17:23)
[2017-11-03 14:37] VITALS: TEMP 98.2
--- NOTE | 2017-11-03 16:08 | PN ---
Copied To: Clay Oneill MD Attending MD: Clay Oneill MD DATE: 11/03/2017 SUBJECTIVE: The patient is in bed, in no acute distress, nontoxic. PHYSICAL EXAMINATION: VITAL SIGNS: On exam, temperature is 98, blood pressure is 110/60, respiratory rate of 18, heart rate of 97. HEENT: Examination of HEENT is unremarkable. NECK: Supple. LUNGS: Have decreased breath sounds. HEART: Normal S1, S2. ABDOMEN: Soft, nontender. LABORATORY DATA: Laboratory examination is reviewed. 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 On Zyvox and Levaquin, day #6, would complete 4-6 weeks of antibiotics with a weekly CBC, SMA-18, sed rate, C-reactive protein. Concerned about a prolonged use of Zyvox and bone marrow toxicity. We will follow closely. Review of orders revealed the Zyvox requires renewal, which we will do so and the Levaquin is active. Clay Oneill MD
--- NOTE | 2017-11-03 20:35 | PN ---
Copied To: Liam Fernandez MD Attending MD: Liam Fernandez MD DATE: 11/03/2017 SUBJECTIVE: The patient is 81 years old, seen and examined, ambulating with the walker. No nausea or vomiting. No diarrhea. Eating and tolerating. No constipation. PHYSICAL EXAMINATION: VITAL SIGNS: She is afebrile, pulse 96, respirations 18, blood pressure 128/76. LUNGS: Bilateral fair airflow. No rhonchi or crackle. HEART: S1 and S2 audible. ABDOMEN: Soft, nontender. No rebound. No guarding. NEUROLOGIC: The patient is awake, alert, oriented. Able to communicate. LABORATORY EXAM: Blood sugar this morning was 155 and after dinner was 147 and before dinner was 133. ASSESSMENT: 1. Right third toe osteomyelitis. 2. Non-insulin dependent diabetes. 3. Hypertension. 4. Hyperlipidemia. 5. Peripheral vascular disease. PLAN: We will continue the patient on Levaquin and p.o. Zyvox. We will continue to monitor blood sugar. She is currently on Levemir 30 units at bedtime. She is on Zyvox 600 twice a day, we will continue that. Possible plan for discharge in a.m. Liam Fernandez MD
[2017-11-03] MEDS: Insulin Detemir 100 units/ml Vial (Levemir) SC SCH (22:14)
[2017-11-04] MEDS: Levothyroxine 75 MCG TAB PO SCH (06:04)
[2017-11-04] MEDS: Pantoprazole 40 mg EC Tab PO SCH (06:04)
[2017-11-04] MEDS: Cholecalciferol 1,000 INTLU TAB PO SCH (09:53)
[2017-11-04] MEDS: Potassium Chloride 10 mEq ER Tab PO SCH (09:53)
[2017-11-04] MEDS: levoFLOXacin 750 MG TAB PO SCH (09:53)
[2017-11-04 12:19] VITALS: PULSE 93; O2SAT 100
--- NOTE | 2017-11-04 13:47 | CP.PCM.PN ---
Subjective - Date & Time of Evaluation Date of Evaluation: 11/04/17 Time of Evaluation: 12:15 - Subjective Subjective: Patient is excited to go home today, no fevers, not in distress, no increased pain in the right foot, no diarrhea. Objective - Vital Signs/Intake and Output Vital Signs (last 24 hours): Temp Pulse Resp BP Pulse Ox 98.2 F 93 H 18 98/59 L 100 11/03/17 16:00 11/04/17 11:58 11/03/17 16:00 11/04/17 06:05 11/04/17 11:58 - Medications Medications: Current Medications Acetaminophen (Tylenol 325mg Tab) 650 mg PO Q6H PRN PRN Reason: Fever >100.4 F Aspirin (Ecotrin) 81 mg PO 0800 [facility] Last Admin: 11/04/17 08:29 Dose: 81 mg Atorvastatin Calcium (Lipitor) 20 mg PO DIN [facility] Last Admin: 11/03/17 17:24 Dose: 20 mg Calcium Carbonate (Caltrate) 600 mg PO DAILY [facility] Last Admin: 11/04/17 09:52 Dose: 600 mg Cholecalciferol (Vitamin D) 1,000 intlu PO DAILY [facility] Last Admin: 11/04/17 09:53 Dose: 1,000 intlu Collagenase (Santyl) 0 gm TOP DAILY [facility] Last Admin: 11/03/17 11:00 Dose: 1 applic Dextrose (Dextrose 50% Inj) 0 ml IV STAT PRN; Protocol PRN Reason: Hypoglycemia Protocol Diphenhydramine HCl (Benadryl Maximum Strength 1%) 0 ea TOP Q6H PRN PRN Reason: Itching / Pruritus Diphenhydramine HCl (Benadryl) 25 mg PO Q6 PRN PRN Reason: Itching / Pruritus Last Admin: 11/02/17 19:40 Dose: 25 mg Docusate Sodium (Colace) 100 mg PO BID [facility] Last Admin: 11/04/17 09:52 Dose: 100 mg Furosemide (Lasix) 20 mg PO 0600 [facility] Last Admin: 11/04/17 06:05 Dose: Not Given Glipizide (Glucotrol) 5 mg PO 1700 [facility] Last Admin: 11/03/17 17:24 Dose: 5 mg Glipizide (Glucotrol) 5 mg PO 0800 [facility] Last Admin: 11/04/17 08:30 Dose: 5 mg Dextrose (Dextrose 5% In Water 1000 Ml) 1,000 mls @ 0 mls/hr IV .Q0M PRN; Protocol; Per Protocol PRN Reason: Hypoglycemia Protocol Insulin Detemir (Levemir) 30 unit SC [facility] Last Admin: 11/03/17 22:14 Dose: 30 u Levofloxacin (Levaquin) 750 mg PO 0900 [facility] PRN Reason: Protocol Last Admin: 11/04/17 09:53 Dose: 750 mg Levothyroxine Sodium (Synthroid) 75 mcg PO 0600 [facility] PRN Reason: Protocol Last Admin: 11/04/17 06:04 Dose: 75 mcg Linezolid (Zyvox) 600 mg PO BID [facility] PRN Reason: Protocol Last Admin: 11/04/17 09:53 Dose: 600 mg Losartan Potassium (Cozaar) 25 mg PO DAILY [facility] Last Admin: 11/04/17 09:52 Dose: 25 mg Meloxicam (Mobic) 15 mg PO DAILY PRN PRN Reason: pain in hand Last Admin: 11/03/17 22:19 Dose: 15 mg Metoprolol Tartrate (Lopressor) 25 mg PO [facility] Last Admin: 11/03/17 22:17 Dose: Not Given Mupirocin (Bactroban Ointment) 0 gm TOP BID [facility] Last Admin: 11/03/17 17:23 Dose: 1 applic Nystatin (Mycostatin Cream) 0 ea TOP TID [facility] Last Admin: 11/03/17 17:22 Dose: 1 applic Ondansetron HCl (Zofran Tab) 8 mg PO Q8H PRN PRN Reason: Nausea/Vomiting Pantoprazole Sodium (Protonix Ec Tab) 40 mg PO 0600 [facility] Last Admin: 11/04/17 06:04 Dose: 40 mg Potassium Chloride (Klor-Con 10) 10 meq PO QOTHERDAY [facility] Last Admin: 11/04/17 09:53 Dose: 10 meq Quetiapine Fumarate (Seroquel) 25 mg PO [facility] PRN Reason: Protocol Last Admin: 11/03/17 22:13 Dose: 25 mg - Constitutional Appears: Non-toxic, Chronically Ill - Head Exam Head Exam: NORMAL INSPECTION - Respiratory Exam Respiratory Exam: Decreased Breath Sounds - Cardiovascular Exam Cardiovascular Exam: +S1, +S2 - GI/Abdominal Exam GI & Abdominal Exam: Soft. 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 and Proteus history of right heel ulcer, infected with MRSA with no evidence of osteomyelitis on MRI - S/P treatment with antibiotics peripheral arterial disease history of left heel infected ulcer with cellulitis without evidence of osteomyelitis on MRI history of 2nd right toe and metatarsal head osteomyelitis S/P surgery chronic renal failure obesity with BMI 38 osteoarthritis HTN DM hypothyroidism S/P left toe amputation S/P right hip surgery Plan continue Zyvox and Levaquin (Day 7) to complete 4-6 weeks of antibiotics with weekly ESR, CRP, CBC, CMP with outpatient follow up with Podiatry once discharged
--- NOTE | 2017-11-04 14:37 | CP.PCM.PN ---
<Aaron Jones - Last Filed: 11/04/17 14:36> Subjective - Date & Time of Evaluation Date of Evaluation: 11/04/17 Time of Evaluation: 14:36 - Subjective Subjective: Podiatry Consult note for Dr. Owusu 81 y/o female seen and evaluated at bedside for infected right third toe infection, right heel ulcer and left second digit ulceration. She is AAO x 3 and NAD at time of visit. Patient is sitting comfortably in the chair. Denies any further pedal complaints at this time. Denies any acute overnight events. Denies any recent N/V/F/C/CP/SOB/D/posterior calf pain when squeezed. Objective - Vital Signs/Intake and Output Vital Signs (last 24 hours): Temp Pulse Resp BP Pulse Ox 98.2 F 93 H 18 98/59 L 100 11/03/17 16:00 11/04/17 11:58 11/03/17 16:00 11/04/17 06:05 11/04/17 11:58 - Medications Medications: Current Medications Acetaminophen (Tylenol 325mg Tab) 650 mg PO Q6H PRN PRN Reason: Fever >100.4 F Aspirin (Ecotrin) 81 mg PO 0800 [facility] Last Admin: 11/04/17 08:29 Dose: 81 mg Atorvastatin Calcium (Lipitor) 20 mg PO DIN [facility] Last Admin: 11/03/17 17:24 Dose: 20 mg Calcium Carbonate (Caltrate) 600 mg PO DAILY [facility] Last Admin: 11/04/17 09:52 Dose: 600 mg Cholecalciferol (Vitamin D) 1,000 intlu PO DAILY [facility] Last Admin: 11/04/17 09:53 Dose: 1,000 intlu Collagenase (Santyl) 0 gm TOP DAILY [facility] Last Admin: 11/03/17 11:00 Dose: 1 applic Dextrose (Dextrose 50% Inj) 0 ml IV STAT PRN; Protocol PRN Reason: Hypoglycemia Protocol Diphenhydramine HCl (Benadryl Maximum Strength 1%) 0 ea TOP Q6H PRN PRN Reason: Itching / Pruritus Diphenhydramine HCl (Benadryl) 25 mg PO Q6 PRN PRN Reason: Itching / Pruritus Last Admin: 11/02/17 19:40 Dose: 25 mg Docusate Sodium (Colace) 100 mg PO BID [facility] Last Admin: 11/04/17 09:52 Dose: 100 mg Furosemide (Lasix) 20 mg PO 0600 [facility] Last Admin: 11/04/17 06:05 Dose: Not Given Glipizide (Glucotrol) 5 mg PO 1700 [facility] Last Admin: 11/03/17 17:24 Dose: 5 mg Glipizide (Glucotrol) 5 mg PO 0800 [facility] Last Admin: 11/04/17 08:30 Dose: 5 mg Dextrose (Dextrose 5% In Water 1000 Ml) 1,000 mls @ 0 mls/hr IV .Q0M PRN; Protocol; Per Protocol PRN Reason: Hypoglycemia Protocol Insulin Detemir (Levemir) 30 unit SC [facility] Last Admin: 11/03/17 22:14 Dose: 30 u Levofloxacin (Levaquin) 750 mg PO 0900 [facility] PRN Reason: Protocol Last Admin: 11/04/17 09:53 Dose: 750 mg Levothyroxine Sodium (Synthroid) 75 mcg PO 0600 [facility] PRN Reason: Protocol Last Admin: 11/04/17 06:04 Dose: 75 mcg Linezolid (Zyvox) 600 mg PO BID [facility] PRN Reason: Protocol Last Admin: 11/04/17 09:53 Dose: 600 mg Losartan Potassium (Cozaar) 25 mg PO DAILY [facility] Last Admin: 11/04/17 09:52 Dose: 25 mg Meloxicam (Mobic) 15 mg PO DAILY PRN PRN Reason: pain in hand Last Admin: 11/03/17 22:19 Dose: 15 mg Metoprolol Tartrate (Lopressor) 25 mg PO [facility] Last Admin: 11/03/17 22:17 Dose: Not Given Mupirocin (Bactroban Ointment) 0 gm TOP BID [facility] Last Admin: 11/03/17 17:23 Dose: 1 applic Nystatin (Mycostatin Cream) 0 ea TOP TID [facility] Last Admin: 11/03/17 17:22 Dose: 1 applic Ondansetron HCl (Zofran Tab) 8 mg PO Q8H PRN PRN Reason: Nausea/Vomiting Pantoprazole Sodium (Protonix Ec Tab) 40 mg PO 0600 [facility] Last Admin: 11/04/17 06:04 Dose: 40 mg Potassium Chloride (Klor-Con 10) 10 meq PO QOTHERDAY [facility] Last Admin: 11/04/17 09:53 Dose: 10 meq Quetiapine Fumarate (Seroquel) 25 mg PO HS [facility] PRN Reason: Protocol Last Admin: 11/03/17 22:13 Dose: 25 mg - Constitutional Appears: Well, Non-toxic, No Acute Distress - Extremities Exam Additional comments: LE focused exam Vasc: DP/PT pulses faintly palpable 1/4 b/l. Skin temperature warm to warm from proximal to distal. CFT < 3 seconds to all digits b/l. Moderate edema noted to right third digit and left second digit Neuro: Epicritic and protective sensation grossly absent b/l Derm: Right third digit - 1 cm x 1 cm x 0.3 cm dorsal third digit ulceration noted. No periwound erythema, minimal serous drainage, no malodor, no purulence , negative probe to bone, no tracking/tunneling/undermining noted. Dorsal eschar noted surrounding wound. No other clinical signs of infection noted. Wound appears to be stable at this time. Right heel - 3 cm x 2 cm x 0.3 cm posterior right heel ulceration. Mild periwound erythema, minimal serous drainage, no malodor, no purulence, negative probe to bone, no tracking/tunneling/undermining noted. No other clinical signs of infection noted Left second digit - 0.1 cm x 0.1 cm x 0.1 cm dorsal second digit ulceration. No periwound erythema or serous drainage, no malodor, no purulence, negative probe to bone, no tracking/tunneling/undermining noted. No other clinical signs of infection noted Left heel- fibrogranular wound to plantar heel with no active drainage, no malodor, no probe to bone, no tunneling, no tracking, no clinical signs of infection noted MSK: No POP to any ulceration site. ROM WNL at all major joints for age. MMT 4/ 5 in all major muscle groups. No other gross deformities noted - Neurological Exam Neurological Exam: Alert, Awake, Oriented x3 - Psychiatric Exam Psychiatric exam: Normal Affect, Normal Mood Assessment and Plan - Assessment and Plan (Free Text) Assessment: 81 y/o female seen and evaluated at bedside for right third digit ulceration with underlying OM, left second digit ulceration and bilateral heel ulcerations Plan: Patient seen and evaluated with attending Dr. Owusu Labs, vitals and charts reviewed Wound cx: Proteus Mirabilis, MRSA R foot MRI: Marrow edema in the third distal phalanx, consistent with osteomyelitis Continue IV abx per ID LE arterial duplex: Normal MCKENNA/PVR at rest Right third digit wound dressed with bactroban, DSD, tape R heel dressed with bactroban, optifoam L heel dressed with bactroban, optifoam Santyl ordered for the wound to the left heel Both legs dressed with tubigrip Patient to continue wearing the surgical shoe No plan for surgical intervention from podiatry at this time Will treat OM with moth exterminator PO abx per ID Upon discharge, please follow up at the wound care center for further care Podiatry will continue to follow while patient in house <Robby Owusu - Last Filed: 11/04/17 17:10> Objective - Vital Signs/Intake and Output Vital Signs (last 24 hours): Temp Pulse Resp BP Pulse Ox 98.2 F 93 H 16 108/56 L 100 11/04/17 10:00 11/04/17 11:58 11/04/17 10:00 11/04/17 10:00 11/04/17 11:58 - Medications Medications: Current Medications Acetaminophen (Tylenol 325mg Tab) 650 mg PO Q6H PRN PRN Reason: Fever >100.4 F Aspirin (Ecotrin) 81 mg PO 0800 [facility] Last Admin: 11/04/17 08:29 Dose: 81 mg Atorvastatin Calcium (Lipitor) 20 mg PO DIN [facility] Last Admin: 11/03/17 17:24 Dose: 20 mg Calcium Carbonate (Caltrate) 600 mg PO DAILY [facility] Last Admin: 11/04/17 09:52 Dose: 600 mg Cholecalciferol (Vitamin D) 1,000 intlu PO DAILY [facility] Last Admin: 11/04/17 09:53 Dose: 1,000 intlu Collagenase (Santyl) 0 gm TOP DAILY [facility] Last Admin: 11/03/17 11:00 Dose: 1 applic Dextrose (Dextrose 50% Inj) 0 ml IV STAT PRN; Protocol PRN Reason: Hypoglycemia Protocol Diphenhydramine HCl (Benadryl Maximum Strength 1%) 0 ea TOP Q6H PRN PRN Reason: Itching / Pruritus Diphenhydramine HCl (Benadryl) 25 mg PO Q6 PRN PRN Reason: Itching / Pruritus Last Admin: 11/02/17 19:40 Dose: 25 mg Docusate Sodium (Colace) 100 mg PO BID [facility] Last Admin: 11/04/17 09:52 Dose: 100 mg Furosemide (Lasix) 20 mg PO 0600 [facility] Last Admin: 11/04/17 06:05 Dose: Not Given Glipizide (Glucotrol) 5 mg PO 1700 [facility] Last Admin: 11/03/17 17:24 Dose: 5 mg Glipizide (Glucotrol) 5 mg PO 0800 [facility] Last Admin: 11/04/17 08:30 Dose: 5 mg Dextrose (Dextrose 5% In Water 1000 Ml) 1,000 mls @ 0 mls/hr IV .Q0M PRN; Protocol; Per Protocol PRN Reason: Hypoglycemia Protocol Insulin Detemir (Levemir) 30 unit SC [facility] Last Admin: 11/03/17 22:14 Dose: 30 u Levofloxacin (Levaquin) 750 mg PO 0900 [facility] PRN Reason: Protocol Last Admin: 11/04/17 09:53 Dose: 750 mg Levothyroxine Sodium (Synthroid) 75 mcg PO 0600 [facility] PRN Reason: Protocol Last Admin: 11/04/17 06:04 Dose: 75 mcg Linezolid (Zyvox) 600 mg PO BID [facility] PRN Reason: Protocol Last Admin: 11/04/17 09:53 Dose: 600 mg Losartan Potassium (Cozaar) 25 mg PO DAILY [facility] Last Admin: 11/04/17 09:52 Dose: 25 mg Meloxicam (Mobic) 15 mg PO DAILY PRN PRN Reason: pain in hand Last Admin: 11/03/17 22:19 Dose: 15 mg Metoprolol Tartrate (Lopressor) 25 mg PO [facility] Last Admin: 11/03/17 22:17 Dose: Not Given Mupirocin (Bactroban Ointment) 0 gm TOP BID [facility] Last Admin: 11/03/17 17:23 Dose: 1 applic Nystatin (Mycostatin Cream) 0 ea TOP TID [facility] Last Admin: 11/03/17 17:22 Dose: 1 applic Ondansetron HCl (Zofran Tab) 8 mg PO Q8H PRN PRN Reason: Nausea/Vomiting Pantoprazole Sodium (Protonix Ec Tab) 40 mg PO 0600 [facility] Last Admin: 11/04/17 06:04 Dose: 40 mg Potassium Chloride (Klor-Con 10) 10 meq PO QOTHERDAY [facility] Last Admin: 11/04/17 09:53 Dose: 10 meq Quetiapine Fumarate (Seroquel) 25 mg PO HS [facility] PRN Reason: Protocol Last Admin: 11/03/17 22:13 Dose: 25 mg Attending/Attestation - Attestation I have personally seen and examined this patient.: Yes I have fully participated in the care of the patient.: Yes I have reviewed all pertinent clinical information, including history, physical exam and plan: Yes
[2017-11-04 16:55] VITALS: BP 108/56; RESP 16
--- NOTE | 2017-11-05 03:39 | DS ---
Copied To: Liam Fernandez MD Attending MD: Liam Fernandez MD HISTORY OF PRESENT ILLNESS: The patient is a 81-year-old who was admitted initially with worsening bilateral heel ulcer, right third toe ulcer. She was sent [facility] for further evaluation. She had MRI done, shows osteomyelitis of the right third toe. She was transferred to TCU for wound care, close monitoring, monitoring of blood sugar. Her stay was uneventful. Received p.o. Zyvox and Levaquin, did well. Being discharged today. PHYSICAL EXAMINATION: GENERAL: She is awake, alert, oriented, communicative. VITAL SIGNS: She is afebrile, pulse 93, respiration 18, blood pressure 101/64. LUNGS: Bilateral fair airflow. No rhonchi or crackle. HEART: S1 and S2 audible. ABDOMEN: Soft, nontender. No rebound, no guarding. NEUROLOGIC: The patient is awake, alert, oriented, communicative. EXTREMITIES: Moves all extremities. Able to ambulate with a walker. LABORATORY DATA: Blood sugar is 99. ASSESSMENT: 1. Right third toe osteomyelitis. 2. Peripheral vascular disease. 3. Hypertension. 4. Hyperlipidemia. 5. Insulin-dependent diabetes. 6. Bilateral heel ulcer, improving. PLAN: The patient is being discharged home on Levaquin and Zyvox as recommended by ID for a total of 4 to 6 weeks and she will follow up with her PMD. Liam Fernandez MD
== END 2017-11-04 17:49 | disposition home health service (06) | DRG 556 ==
LOC: TRCU 18:20
PROVIDERS: ADMIT Internal Medicine; ATTEND Internal Medicine
PROC: F07L6YZ Therapeutic Exercise Treatment of Musculoskeletal System - Lower Back / Lower Extremity using Other Equipment (ICD-10-PCS; principal; 2017-10-28)
PROC: F07Z9FZ Gait Training/Functional Ambulation Treatment using Assistive, Adaptive, Supportive or Protective Equipment (ICD-10-PCS; 2017-10-29)
PROC: F07Z8ZZ Transfer Training Treatment (ICD-10-PCS; 2017-10-30)
PROC: F08Z1FZ Dressing Techniques Treatment using Assistive, Adaptive, Supportive or Protective Equipment (ICD-10-PCS; 2017-10-31)
PROC: F08Z2ZZ Grooming/Personal Hygiene Treatment (ICD-10-PCS; 2017-10-31)
DX: R26.2 Difficulty in walking, not elsewhere classified (principal); M86.8X7 Other osteomyelitis, ankle and foot; L97.419 Non-pressure chronic ulcer of right heel and midfoot with unspecified severity; L97.429 Non-pressure chronic ulcer of left heel and midfoot with unspecified severity; E11.69 Type 2 diabetes mellitus with other specified complication; E11.621 Type 2 diabetes mellitus with foot ulcer; L97.529 Non-pressure chronic ulcer of other part of left foot with unspecified severity; E11.42 Type 2 diabetes mellitus with diabetic polyneuropathy; E11.51 Type 2 diabetes mellitus with diabetic peripheral angiopathy without gangrene; I11.0 Hypertensive heart disease with heart failure; I50.9 Heart failure, unspecified; E78.5 Hyperlipidemia, unspecified; E03.9 Hypothyroidism, unspecified; E78.00 Pure hypercholesterolemia, unspecified; I25.10 Atherosclerotic heart disease of native coronary artery without angina pectoris; E66.9 Obesity, unspecified; K21.9 Gastro-esophageal reflux disease without esophagitis; M19.90 Unspecified osteoarthritis, unspecified site; B95.62 Methicillin resistant Staphylococcus aureus infection as the cause of diseases classified elsewhere; B96.4 Proteus (mirabilis) (morganii) as the cause of diseases classified elsewhere; Z79.4 Long term (current) use of insulin; Z88.0 Allergy status to penicillin; Z83.3 Family history of diabetes mellitus; Z68.38 Body mass index [BMI] 38.0-38.9, adult; Z89.422 Acquired absence of other left toe(s)

== ENCOUNTER 2018-05-03 18:01 | Inpatient (IN) | payer MEDICARE, OTHER ==
[2018-05-03 18:14] VITALS: BMI 37.9
[2018-05-03] MEDS ORDERED: Vancomycin 1gm in NS 250ml 1 GM/250 ML BAG IVPB STA (18:39)
[2018-05-03] MEDS ORDERED: Aztreonam 2 Gm in NS 100mL 100 ML IVPB STA (18:43)
[2018-05-03 18:54] LABS: BASO # 0.02 K/mm3 (0.0-2.0); BASO % 0.2 % (0.0-3.0); EOS # 0.2 (0.0-0.7); EOS % 1.9 % (1.5-5.0); HEMOGLOBIN 11.7 g/dL (12.0-16.0); LYMPH # 2.7 (1.2-3.4); LYMPH % 29.3 % (22.0-35.0); MEAN CORPUSCULAR HEMOGLOBIN 30.9 pg (25.0-35.0); MEAN CORPUSCULAR HGB CONC 32.5 g/dl (31.0-37.0); MEAN PLATELET VOLUME 11.9 fl (7.0-11.0); MONO # 0.6 (0.1-0.6); MONO % 6.5 % (1.0-6.0); RBC 3.79 10^6/uL (3.5-6.1); RED CELL DISTRIBUTION WIDTH 13.4 % (11.5-14.5); WHITE BLOOD COUNT 9.2 10^3/uL (4.5-11.0)
[2018-05-03 18:57] LABS: ALBUMIN 4.2 g/dL (3.0-4.8); CALCIUM 9.9 mg/dL (8.4-10.5); INR 1.17; PARTIAL THROMBOPLASTIN TIME 36.6 Seconds (26.9-38.3)
[2018-05-03 19:05] LABS: VENOUS BLOOD GAS BASE EXCESS 6.7 mmol/L (0.0-2.0); VENOUS BLOOD GAS PO2 27 mm/Hg (30-55); VENOUS BLOOD PH 7.39 (7.32-7.43)
--- NOTE | 2018-05-03 20:41 | ED PDOC ---
Arrival/HPI - General Chief Complaint: Abnormal Skin Integrity Historian: Patient, Family - History of Present Illness Narrative History of Present Illness (Text): 05/03/18 20:19 Patient is an 82 yo female past medical history of peripheral vascular disease, cardiac disease, diabetes, presents to the Emergency Department with history of worsening right heel ulcer over the past 5 days. Patient noted a "scab" 5 days ago, noted by visiting nurse to right heel. It was re-evaluated two days later and had worsened as per visiting nurse, who communicated with corporate compliance manager and patient was started on Ciprofloxacin. Redness and ulcer reportedly worsened since starting antibiotics. Patient denies any chest pain or shortness of breath. Denies any new leg pain or swelling. Denies shakes or chills. Denies calf pain. Denies headaches. Denies any ulcerations to left leg. 05/03/18 20:21 Past Medical History - Infectious Disease Hx of Infectious Diseases: None - Tetanus Immunization Tetanus Immunization: Unknown - Cardiac Hx Cardiac Disorders: Yes (CAD,) Hx Hypertension: Yes - Pulmonary Hx Respiratory Disorders: No - Neurological Hx Neurological Disorder: Yes (PHERIPHERAL NEUROPATHY) - HEENT Hx HEENT Disorder: Yes Hx Cataracts: Yes - Renal Hx Renal Disorder: No - Endocrine/Metabolic Hx Diabetes Mellitus Type 2: Yes Hx Hypothyroidism: Yes - Hematological/Oncological Hx Blood Disorders: No - Integumentary Hx Dermatological Disorder: Yes Other/Comment: L GREAT TOE AND RIGHT 2ND TOE AMPUATED. - Musculoskeletal/Rheumatological Hx Falls: Yes Other/Comment: multiple toe amputations - Gastrointestinal Hx Gastroesophageal Reflux: Yes - Genitourinary/Gynecological Hx Genitourinary Disorders: Yes - Psychiatric Hx Emotional Abuse: No Hx Physical Abuse: No Hx Substance Use: No - Surgical History Hx Orthopedic Surgery: Yes (toe amputations) Other/Comment: carpal tunnel. R hip marisol - Anesthesia Hx Anesthesia: Yes Hx Anesthesia Reactions: No Hx Malignant Hyperthermia: No - Suicidal Assessment Feels Threatened In Home Enviroment: No Family/Social History Family/Social History: Unknown Family HX Smoking Status: Never Smoked Hx Alcohol Use: No Hx Substance Use: No Hx Substance Use Treatment: No Allergies/Home Meds Allergies/Adverse Reactions: Allergies Penicillins Allergy (Intermediate, Verified 10/28/17 23:52) ITCHING Home Medications: Home Meds Medication Instructions Recorded Confirmed Aspirin [Adult Aspirin] 1 tab PO DAILY 05/03/18 05/03/18 Atorvastatin [Lipitor] 1 tab PO HS 05/03/18 05/03/18 Calcium Carbonate/Vitamin D3 1 tab PO DAILY 05/03/18 05/03/18 [Caltrate 600 + D Soft Chew Tab] Cholecalciferol (Vitamin D3) 1 tab PO DAILY 05/03/18 05/03/18 [Vitamin D3] Furosemide [Lasix] 1 tab PO DAILY 05/03/18 05/03/18 Glipizide [Glipizide ER] 1 tab PO TID 05/03/18 05/03/18 Insulin Glargine,Hum.rec.anlog 46 unit SC DAILY 05/03/18 05/03/18 [Basaglar Kwikpen U-100] Levothyroxine Sodium [Levoxyl] 1 tab PO DAILY 05/03/18 05/03/18 Losartan [Cozaar] 1 tab PO DAILY 05/03/18 05/03/18 Metoprolol Tartrate [Lopressor] 1 tab PO DAILY 05/03/18 05/03/18 Multivit-Min/FA/Lycopen/Lutein 1 tab PO DAILY 05/03/18 05/03/18 [Centrum Silver Tablet] Potassium Chloride [Klor-Con M20] 0.5 tab PO DAILY 05/03/18 05/03/18 QUEtiapine [Seroquel] 1 tab PO HS 05/03/18 05/03/18 Ranitidine HCl [Acid Unit Supervisor] 1 tab PO DAILY 05/03/18 05/03/18 Review of Systems - Review of Systems Constitutional: absent: Fatigue, Fevers Respiratory: absent: SOB, Cough Cardiovascular: absent: Chest Pain, Edema, [place] Gastrointestinal: absent: Abdominal Pain, Nausea, Vomiting Genitourinary Female: absent: Dysuria, Frequency, Urine Output Changes Musculoskeletal: Other (heel pain, right). absent: Back Pain Skin: Ulcer, Cellulitis Neurological: absent: Focal Weakness Endocrine: absent: Polyuria Hemo/Lymphatic: absent: Easy Bleeding Psychiatric: absent: Depression Physical Exam Vital Signs Reviewed: Yes Vital Signs Temp Pulse Resp BP Pulse Ox 05/03/18 18:18 99.7 F H 98 H 19 135/79 100 Appearance: Positive for: Well-Appearing, Non-Toxic, Comfortable Pain Distress: None Mental Status: Positive for: Alert and Oriented X 3 Finger Stick Blood Glucose: 223 - Systems Exam Head: Present: Atraumatic Extroacular Muscles: Present: EOMI Conjunctiva: No: Injected Mouth: Present: Moist Mucous Membranes Pharnyx: No: ERYTHEMA Nose (Internal): Present: Normal Inspection Neck: Present: Normal Range of Motion. No: Meningeal Signs Respiratory/Chest: Present: Clear to Auscultation. No: Respiratory Distress Cardiovascular: Present: Regular Rate and Rhythm, Murmurs Abdomen: No: Tenderness, Distention, Peritoneal Signs Back: No: CVA Tenderness, Midline Tenderness Upper Extremity: No: Cyanosis Lower Extremity: Present: Other (ulcer noted to right heel, prior amputation to toes right foot and left foot, no acute ulcerations noted to toes, there is no acute calf pain or streaking, there is full range of motion at hip, knee and ankle) Psychiatric: Present: Alert, Normal Insight, Normal Concentration Medical Decision Making ED Course and Treatment: 05/03/18 20:48 Patient present with family who supplements history. On exam she denies any pain or discomfort. Her skin is warm and dry. Distal pulses intact. She has prior hx of diabetes and PVD as per family with past history of amputations. I consulted with infectious disease, Dr. Garcia, patient initiated on Azactam and Vancomycin, this was reviewed with patient and family. Denies chest pain or shortness of breath. Labs reviewed. Xrays obtained. Cannot exclude risk of osteomyelitis although patient at this time does not ap pear septic, not tachycardic, not tachypneic, not hypotensive, initial lactate unremarkable. Case d/w Dr. Fernandez, accepts admission to her service. - Lab Interpretations Lab Results: pO2 27 mm/Hg (30-55) L 05/03/18 18:36 VBG pH 7.39 (7.32-7.43) 05/03/18 18:36 VBG pCO2 55.0 (40-60) 05/03/18 18:36 VBG HCO3 33.3 mmol/l (21-28) H 05/03/18 18:36 VBG Total CO2 35.0 mmol.L (22-28) H 05/03/18 18:36 VBG O2 Sat (Calc) 69.9 % (40-65) H 05/03/18 18:36 VBG Base Excess 6.7 mmol/L (0.0-2.0) H 05/03/18 18:36 VBG Potassium 5.2 mmol/L (3.6-5.2) 05/03/18 18:36 Sodium 141.0 mmol/L (132-148) 05/03/18 18:36 Chloride 107.0 mmol/L (98-107) 05/03/18 18:36 Glucose 223 mg/dl (65-105) H 05/03/18 18:36 Lactate 1.9 mmol/L (0.7-2.1) 05/03/18 18:36 FiO2 21.0 % 05/03/18 18:36 PT 13.0 SECONDS (9.4-12.5) H 05/03/18 18:36 INR 1.17 05/03/18 18:36 APTT 36.6 Seconds (26.9-38.3) 05/03/18 18:36 Total Bilirubin 0.4 mg/dL (0.2-1.3) 05/03/18 18:36 AST 48 U/L (14-36) H D 05/03/18 18:36 ALT 29 U/L (7-56) 05/03/18 18:36 Alkaline Phosphatase 212 U/L (38-126) H 05/03/18 18:36 Total Protein 8.4 g/dL (5.8-8.3) H 05/03/18 18:36 Albumin 4.2 g/dL (3.0-4.8) 05/03/18 18:36 Globulin 4.1 gm/dL 05/03/18 18:36 Albumin/Globulin Ratio 1.0 (1.1-1.8) L 05/03/18 18:36 - RAD Interpretation Radiology Orders: 05/03/18 18:33 HEEL RIGHT [RAD] Stat 05/03/18 18:35 CHEST ONE VIEW [RAD] Stat - Medication Orders Current Medication Orders: Aspirin (Ecotrin) 81 mg PO DAILY [facility] Atorvastatin Calcium (Lipitor) 20 mg PO HS [facility] Calcium/Vitamin D (Oscal-D 250 Mg-125 Units Tab) 2 tab PO DAILY [facility] Famotidine (Pepcid) 20 mg PO DAILY [facility] Furosemide (Lasix) 40 mg IVP DAILY [facility] Glipizide (Glucotrol Xl) 5 mg PO ACBD [facility] Insulin Detemir (Levemir) 23 unit SC Q12 [facility] Insulin Human Lispro (Humalog Med) 0 units SC ACHS [facility]; Protocol Levothyroxine Sodium (Synthroid) 50 mcg PO DAILY [facility] Losartan Potassium (Cozaar) 25 mg PO DAILY [facility] Metoprolol Tartrate (Lopressor) 50 mg PO BID [facility] Multivitamins/Minerals (Therapeutic-M Tab) 1 tab PO DAILY [facility] Potassium Chloride (Klor-Con 10) 10 meq PO DAILY [facility] Quetiapine Fumarate (Seroquel) 25 mg PO HS [facility]; Protocol Discontinued Medications Aspirin (Ecotrin) 1 mg PO DAILY [facility] Atorvastatin Calcium (Lipitor) 1 mg PO HS [facility] Atorvastatin Calcium (Lipitor) 10 mg PO HS [facility] Glipizide (Glucotrol Xl) 1 mg PO TID [facility] Vancomycin HCl (Vancomycin 1gm) 1 gm in 250 mls @ 167 mls/hr IVPB STAT [facility]; Protocol Stop: 05/03/18 20:08 Aztreonam (Azactam 2 Gm) 100 mls @ 100 mls/hr IVPB STAT [facility]; Protocol Stop: 05/03/18 19:42 Last Admin: 05/03/18 19:05 Dose: 100 mls/hr eMAR Start Stop Document 05/03/18 19:05 MA (Rec: 05/03/18 19:06 MA [id number]) Intravenous Solution Start Date 05/03/18 Start Time 19:06 Levothyroxine Sodium (Synthroid) 1,000 mcg PO DAILY [facility] Losartan Potassium (Cozaar) 1 mg PO DAILY [facility] Metoprolol Tartrate (Lopressor) 1 mg PO DAILY [facility] Metoprolol Tartrate (Lopressor) 25 mg PO DAILY [facility] Non-Formulary Medication (Ranitidine Hcl [Acid Unit Supervisor]) 1 tab PO DAILY [facility] Potassium Chloride (K-Dur 20 Meq Er Tab) meq PO DAILY [facility] Quetiapine Fumarate (Seroquel) 1 mg PO HS [facility]; Protocol Disposition/Present on Arrival - Present on Arrival Any Indicators Present on Arrival: Yes History of DVT/PE: No History of Uncontrolled Diabetes: Yes Urinary Catheter: No History of Decub. Ulcer: No History Surgical Site Infection Following: None - Disposition Have Diagnosis and Disposition been Completed?: Yes Diagnosis: Infected wound, Cellulitis Disposition: HOSPITALIZED Disposition Time: 19:00 Patient Plan: Admission Condition: SERIOUS
--- NOTE | 2018-05-03 22:51 | HP ---
DATE OF EXAM: 05/03/2018 HISTORY OF PRESENT ILLNESS: Patient is an 89-year-old white female who came to emergency room because of worsening right heel wound. She has been having low grade fever. Patient is being followed by Dr. Patterson and she was evaluated by the visiting nurses and there was increasingly erythema, so she was brought to Emergency Room for further evaluation. Patient is known to me from multiple previous admissions. Patient denies any fever. No chills. No nausea or vomiting. No diarrhea. PAST MEDICAL HISTORY: Significant for; 1. Hypertension. 2. Non-insulin dependent diabetes. 3. Generalized osteoarthritis. 4. 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 5. Peripheral vascular disease. ALLERGIES: PATIENT IS ALLERGIC TO PENICILLIN. MEDICATION AT HOME: She is on Basaglar 46 units at bedtime, glipizide 2.5 mg twice a day, Seroquel 25 mg daily, multivitamin, vitamin D. She is on potassium 10 mEq daily, metoprolol 150 mg twice a day, losartan 25 daily, Lipitor 20 mg daily, ranitidine 150 mg daily, levothyroxine 50 mcg daily, and aspirin 81 mg daily. SOCIAL HISTORY: She lives with her daughter, denies smoking, drinking, alcohol use. PHYSICAL EXAMINATION: GENERAL: Patient is awake, alert, oriented, able to communicate. VITAL SIGNS: Temperature 99.7, pulse 90, respiration 19, and blood pressure 135/79. LUNGS: Bilateral clear air flow. No rhonchi or crackles. HEART: S1 and S2 audible. ABDOMEN: Soft and nontender. No rebound and no guarding. NEUROLOGIC: Patient is awake, alert, oriented, able to communicate. Right foot is in the dressing. LABORATORY DATA: WBC 9.2, hemoglobin 11.7, hematocrit 36, and platelets 208. PT 13.0, INR 1.17. Chemistry; sodium 140, potassium 4.0, chloride 102, CO2 of 30, BUN 46, creatinine 1.2, and blood sugar of 208. LFTs are within normal limits. Alk phos 212, total protein 8.4. X-ray chest is unremarkable. X-ray of the heel, no obvious structures. ASSESSMENT AND PLAN: 1. Worsening right heel ulcer. 2. Peripheral vascular disease. 3. Non-insulin dependent diabetes. 4. Hypertension. 5. Hyperlipidemia. PLAN: Patient is given Azactam. She will be given vancomycin. We will monitor her blood sugar. Dr. Patterson for consult. Dr. Oneill has been consulted too. They will follow up with patient soon. We will follow up patient in the a.m.. Liam Fernandez MD
[2018-05-03] MEDS: Insulin Lispro (humaLOG) MEDIUM Coverage SC SCH (23:02)
[2018-05-03 23:11] LABS: URINE BILIRUBIN NEGATIVE (NEGATIVE); URINE BLOOD NEGATIVE (NEGATIVE); URINE GLUCOSE (UA) NEGATIVE (NEGATIVE); URINE LEUKOCYTE ESTERASE NEGATIVE Leu/uL (NEGATIVE); URINE PROTEIN NEGATIVE mg/dL (<30 mg/dL); URINE UROBILINOGEN 0.2 E.U./dL (<1 E.U./dL)
[2018-05-03 23:13] LABS: URINE APPEARANCE CLEAR (CLEAR); URINE COLOR YELLOW (YELLOW)
[2018-05-04] MEDS: Levothyroxine 50 MCG TAB PO SCH (06:18)
[2018-05-04] MEDS ORDERED: Vancomycin 1gm in NS 250ml 1 GM/250 ML BAG IVPB STA (06:40)
--- NOTE | 2018-05-04 08:12 | RAD ---
Date of service: 05/03/2018 HISTORY: weakness COMPARISON: Portable chest 11/09/2017. FINDINGS: LUNGS: No active pulmonary disease. PLEURA: No significant pleural effusion identified, no pneumothorax apparent. CARDIOVASCULAR: No aortic atherosclerotic calcification present. Normal cardiac size. No pulmonary vascular congestion. OSSEOUS STRUCTURES: No significant abnormalities. VISUALIZED UPPER ABDOMEN: Normal. OTHER FINDINGS: None. IMPRESSION: No interval acute cardiopulmonary disease appreciated.
--- NOTE | 2018-05-04 08:14 | RAD ---
Date of service: 05/03/2018 PROCEDURE: Radiographs of the right calcaneus/hindfoot. HISTORY: eval for osteo COMPARISON: None available. TECHNIQUE: Frontal and lateral radiographs of the calcaneus. FINDINGS: No fracture of the calcaneus is appreciated. Gross joint space narrowing and articular cortical sclerosis are identified at the subtalar joint and are moderate to severe at the tibiotalar joint. Is advanced degenerative joint disease also seen throughout the midfoot joints diffusely. Prominent soft tissue edema seen the dorsal midfoot soft tissues with a large plantar calcaneal spur evident. Heterogeneous calcifications seen in the incidentally captured distal leg soft tissues anteriorly as well as posteriorly which are nonspecific they may be postinfectious or postinflammatory or even chronic venous disease. IMPRESSION: No acute fracture or dislocation of the right calcaneus/hindfoot as imaged. Advanced degenerative changes are appreciated and there is a large plantar calcaneal spur. Midfoot dorsal soft tissue edema identified.
[2018-05-04] MEDS: GlipiZIDE 5 mg SR Tab PO SCH ×2 (08:16→17:23)
[2018-05-04] MEDS: Calcium-Vit D 250 mg-125 Units Tab UD PO SCH (09:52)
[2018-05-04] MEDS: Potassium Chloride 10 mEq ER Tab PO SCH (09:52)
[2018-05-04] MEDS ORDERED: GlipiZIDE 2.5 mg SR Tab PO SCH (10:00)
[2018-05-04] MEDS ORDERED: RANITIDINE HCL PO SCH (10:00)
[2018-05-04] MEDS ORDERED: Levothyroxine 50 MCG TAB PO SCH (10:00)
[2018-05-04] MEDS ORDERED: Potassium Chloride 20 mEq ER Tab PO SCH (10:00)
[2018-05-04] MEDS ORDERED: Levothyroxine 75 MCG TAB PO SCH (10:00)
[2018-05-04] MEDS: Insulin Detemir 100 units/ml Vial (Levemir) SC SCH ×2 (10:03→22:17)
[2018-05-04] MEDS: Multivitamin With Minerals Tab PO SCH (10:04)
[2018-05-04] MEDS: Insulin Lispro (humaLOG) MEDIUM Coverage SC SCH ×4 (10:10→22:19)
--- NOTE | 2018-05-04 12:29 | CP.PCM.CON ---
<Shanna Jane - Last Filed: 05/04/18 12:26> History of Present Illness - History of Present Illness History of Present Illness: Podiatry Consult note: Dr. Owusu 82 year old F with PMHx CAD, Diabetes, PAD, peripheral neuropathy, and previous amputations seen at bedside with Dr. Lebron for infected right heel ulcer. She is AAO x 3 and NAD at time of visit. Patient is very well known to the podiatry service. Patient has nursing service that regularly changes her right heel ulcer dressing. As per nursing, patient wound worsened over a span of 2 days. Patient was put on PO Cipro prior to arrival to the hospital. Patient reports she wears her Multipodus boots every night, however, not during the day. Denies any further pedal complaints at this time. Denies any acute overnight events. Denies any recent N/V/F/C/CP/SOB/D/posterior calf pain when squeezed. Review of Systems - Review of Systems All systems: reviewed and no additional remarkable complaints except Review of Systems: As per HPI Past Patient History - Infectious Disease Hx of Infectious Diseases: None - Tetanus Immunizations Tetanus Immunization: Unknown - Past Medical History & Family History Past Medical History?: Yes - Past Social History Smoking Status: Never Smoked - CARDIAC Hx Cardiac Disorders: Yes (CAD,) Hx Hypertension: Yes - PULMONARY Hx Respiratory Disorders: No - NEUROLOGICAL Hx Neurological Disorder: Yes (PHERIPHERAL NEUROPATHY) - HEENT Hx HEENT Problems: Yes Hx Cataracts: Yes - RENAL Hx Chronic Kidney Disease: No - ENDOCRINE/METABOLIC Hx Diabetes Mellitus Type 2: Yes Hx Hypothyroidism: Yes - HEMATOLOGICAL/ONCOLOGICAL Hx Blood Disorders: No - INTEGUMENTARY Hx Dermatological Problems: Yes Other/Comment: L GREAT TOE AND RIGHT 2ND TOE AMPUATED. - MUSCULOSKELETAL/RHEUMATOLOGICAL Hx Falls: Yes Other/Comment: multiple toe amputations - GASTROINTESTINAL Hx Gastroesophageal Reflux: Yes - GENITOURINARY/GYNECOLOGICAL Hx Genitourinary Disorders: Yes - PSYCHIATRIC Hx Emotional Abuse: No Hx Physical Abuse: No Hx Substance Use: No - SURGICAL HISTORY Hx Orthopedic Surgery: Yes (toe amputations) Other/Comment: carpal tunnel. R hip marisol - ANESTHESIA Hx Anesthesia: Yes Hx Anesthesia Reactions: No Hx Malignant Hyperthermia: No Meds Allergies/Adverse Reactions: Allergies Allergy/AdvReac Type Severity Reaction Status Date / Time Penicillins Allergy Intermediate ITCHING Verified 10/28/17 23:52 - Medications Medications: Current Medications Aspirin (Ecotrin) 81 mg PO DAILY [facility] Last Admin: 05/04/18 09:51 Dose: 81 mg Atorvastatin Calcium (Lipitor) 20 mg PO HS [facility] Last Admin: 05/03/18 23:01 Dose: 20 mg Calcium/Vitamin D (Oscal-D 250 Mg-125 Units Tab) 2 tab PO DAILY [facility] Last Admin: 05/04/18 09:52 Dose: 2 tab Famotidine (Pepcid) 20 mg PO DAILY [facility] Last Admin: 05/04/18 09:53 Dose: 20 mg Furosemide (Lasix) 40 mg IVP DAILY [facility] Last Admin: 05/04/18 10:03 Dose: 40 mg Glipizide (Glucotrol Xl) 5 mg PO ACBD [facility] Last Admin: 05/04/18 08:16 Dose: 5 mg Aztreonam (Azactam 1 Gm) 100 mls @ 100 mls/hr IVPB Q8 [facility]; Protocol Stop: 05/11/18 14:01 Insulin Detemir (Levemir) 23 unit SC Q12 [facility] Last Admin: 05/04/18 10:03 Dose: 23 units Insulin Human Lispro (Humalog Med) 0 units SC ACHS [facility]; Protocol Last Admin: 05/04/18 11:37 Dose: 1 unit Levothyroxine Sodium (Synthroid) 50 mcg PO 0600 [facility] Last Admin: 05/04/18 06:18 Dose: 50 mcg Losartan Potassium (Cozaar) 25 mg PO DAILY [facility] Last Admin: 05/04/18 09:52 Dose: 25 mg Metoprolol Tartrate (Lopressor) 50 mg PO BID [facility] Last Admin: 05/04/18 10:03 Dose: 50 mg Multivitamins/Minerals (Therapeutic-M Tab) 1 tab PO DAILY [facility] Last Admin: 05/04/18 10:04 Dose: 1 tab Mupirocin (Bactroban Ointment) 10 gm TOP BID [facility] Potassium Chloride (Klor-Con 10) 10 meq PO DAILY [facility] Last Admin: 05/04/18 09:52 Dose: 10 meq Quetiapine Fumarate (Seroquel) 25 mg PO HS [facility]; Protocol Last Admin: 05/03/18 23:01 Dose: 25 mg Physical Exam - Constitutional Appears: Well, Non-toxic, No Acute Distress - Head Exam Head Exam: ATRAUMATIC, NORMOCEPHALIC - Extremities Exam Additional comments: LE focused exam Vasc: DP/PT pulses faintly palpable 1/4 b/l. Skin temperature warm to warm from proximal to distal. CFT < 3 seconds to all digits b/l. Moderate edema diffusely Neuro: Epicritic and protective sensation grossly absent b/l Derm: Right heel - 2.5 cm x 2.5 cm x 0.3 cm posterior right heel ulceration with Mild periwound erythema, wound bed 80% angry granular tissue with 20% necrotic central patch, minimal serous drainage, no malodor, no purulence, negative probe to bone, no tracking/tunneling/undermining noted. Left heel- no wound to plantar heel at this time MSK: No POP to any ulceration site. ROM WNL at all major joints for age. MMT 4/5 in all major muscle groups. No other gross deformities noted - Neurological Exam Neurological exam: Alert, Oriented x3 - Psychiatric Exam Psychiatric exam: Normal Affect, Normal Mood Results - Vital Signs Recent Vital Signs: Last Vital Signs Temp 98 F 05/04/18 07:55 Pulse 81 05/04/18 10:03 Resp 20 05/04/18 07:55 BP 121/60 05/04/18 10:03 Pulse Ox 97 05/04/18 07:55 - Labs Result Diagrams: 05/03/18 18:28 05/03/18 18:36 Labs: Laboratory Results - last 24 hr 05/03/18 05/03/18 05/03/18 18:28 18:36 18:36 WBC 9.2 RBC 3.79 Hgb 11.7 L D Hct 36.0 MCV 95.0 MCH 30.9 MCHC 32.5 RDW 13.4 Plt Count 208 MPV 11.9 H Neut % (Auto) 62.1 Lymph % (Auto) 29.3 [place] % (Auto) 6.5 H Eos % (Auto) 1.9 Baso % (Auto) 0.2 Lymph # (Auto) 2.7 [place] # (Auto) 0.6 Eos # (Auto) 0.2 Baso # (Auto) 0.02 Absolute Neuts (auto) 5.73 PT 13.0 H INR 1.17 APTT 36.6 pO2 27 L VBG pH 7.39 VBG pCO2 55.0 VBG HCO3 33.3 H VBG Total CO2 35.0 H VBG O2 Sat (Calc) 69.9 H VBG Base Excess 6.7 H VBG Potassium 5.2 Sodium 141.0 Chloride 107.0 Glucose 223 H Lactate 1.9 FiO2 21.0 Potassium Carbon Dioxide Anion Gap BUN Creatinine Est GFR ( Amer) Est GFR (Non-Af Amer) POC Glucose (mg/dL) Random Glucose Calcium Phosphorus Magnesium Total Bilirubin AST ALT Alkaline Phosphatase Total Protein Albumin Globulin Albumin/Globulin Ratio Venous Blood Potassium 5.2 Urine Color Urine Appearance Urine pH Ur Specific [place] Urine Protein Urine Glucose (UA) Urine Ketones Urine Blood Urine Nitrate Urine Bilirubin Urine Urobilinogen Ur Leukocyte Esterase 05/03/18 05/03/18 05/03/18 18:36 18:56 21:05 WBC RBC Hgb Hct MCV MCH MCHC RDW Plt Count MPV Neut % (Auto) Lymph % (Auto) [place] % (Auto) Eos % (Auto) Baso % (Auto) Lymph # (Auto) [place] # (Auto) Eos # (Auto) Baso # (Auto) Absolute Neuts (auto) PT INR APTT pO2 VBG pH VBG pCO2 VBG HCO3 VBG Total CO2 VBG O2 Sat (Calc) VBG Base Excess VBG Potassium Sodium 140 Chloride 102 Glucose Lactate FiO2 Potassium 5.0 Carbon Dioxide 30 Anion Gap 12 BUN 46 H Creatinine 1.2 Est GFR ( Amer) 52 Est GFR (Non-Af Amer) 43 POC Glucose (mg/dL) 223 H 185 H Random Glucose 208 H Calcium 9.9 Phosphorus 3.6 Magnesium 1.9 Total Bilirubin 0.4 AST 48 H D ALT 29 Alkaline Phosphatase 212 H Total Protein 8.4 H Albumin 4.2 Globulin 4.1 Albumin/Globulin Ratio 1.0 L Venous Blood Potassium Urine Color Urine Appearance Urine pH Ur Specific [place] Urine Protein Urine Glucose (UA) Urine Ketones Urine Blood Urine Nitrate Urine Bilirubin Urine Urobilinogen Ur Leukocyte Esterase 05/03/18 05/04/18 05/04/18 23:06 07:18 11:04 WBC RBC Hgb Hct MCV MCH MCHC RDW Plt Count MPV Neut % (Auto) Lymph % (Auto) [place] % (Auto) Eos % (Auto) Baso % (Auto) Lymph # (Auto) [place] # (Auto) Eos # (Auto) Baso # (Auto) Absolute Neuts (auto) PT INR APTT pO2 VBG pH VBG pCO2 VBG HCO3 VBG Total CO2 VBG O2 Sat (Calc) VBG Base Excess VBG Potassium Sodium Chloride Glucose Lactate FiO2 Potassium Carbon Dioxide Anion Gap BUN Creatinine Est GFR ( Amer) Est GFR (Non-Af Amer) POC Glucose (mg/dL) 107 164 H Random Glucose Calcium Phosphorus Magnesium Total Bilirubin AST ALT Alkaline Phosphatase Total Protein Albumin Globulin Albumin/Globulin Ratio Venous Blood Potassium Urine Color Yellow Urine Appearance Clear Urine pH 6.0 Ur Specific [place] 1.015 Urine Protein Negative Urine Glucose (UA) Negative Urine Ketones Negative Urine Blood Negative Urine Nitrate Negative Urine Bilirubin Negative Urine Urobilinogen 0.2 Ur Leukocyte Esterase Negative Assessment & Plan - Assessment and Plan (Free Text) Assessment: 81 y/o female seen and evaluated at bedside for right heel ulcerations, admitted for IV Abx Plan: Patient seen and evaluated with attending Dr. Owusu Labs, vitals and charts reviewed R heel X-ray: no signs of osteomyelitis noted LE arterial duplex (10/25): Normal MCKENNA/PVR at rest R heel dressed with maxorb, adaptic, DSD L heel dressed with optifoam Bactroban ordered Wound Culture ordered Right foot MRI ordered, without contrast Multipodus boots to be worn at all times Continue PO abx per ID Infectious disease consult- recommendations appreciated Podiatry will continue to follow while patient in house Thank you for the podiatry consult and allowing to take part in patient care - Date & Time Date: 05/04/18 Time: 12:32 <Robby Owusu - Last Filed: 05/05/18 11:59> Meds - Medications Medications: Current Medications Aspirin (Ecotrin) 81 mg PO DAILY [facility] Last Admin: 05/05/18 10:09 Dose: 81 mg Atorvastatin Calcium (Lipitor) 20 mg PO HS [facility] Last Admin: 05/04/18 22:17 Dose: 20 mg Calcium/Vitamin D (Oscal-D 250 Mg-125 Units Tab) 2 tab PO DAILY [facility] Last Admin: 05/05/18 10:10 Dose: 2 tab Famotidine (Pepcid) 20 mg PO DAILY [facility] Last Admin: 05/05/18 10:10 Dose: 20 mg Ferrous Gluconate (Fergon) 324 mg PO TID [facility] Last Admin: 05/05/18 10:14 Dose: 324 mg Furosemide (Lasix) 40 mg IVP DAILY [facility] Last Admin: 05/05/18 10:06 Dose: 40 mg Glipizide (Glucotrol Xl) 5 mg PO ACBD [facility] Last Admin: 05/05/18 08:01 Dose: 5 mg Aztreonam (Azactam 1 Gm) 100 mls @ 100 mls/hr IVPB Q8 [facility]; Protocol Stop: 05/11/18 14:01 Last Admin: 05/05/18 05:49 Dose: 100 mls/hr Insulin Detemir (Levemir) 23 unit SC Q12 [facility] Last Admin: 05/05/18 10:04 Dose: 23 units Insulin Human Lispro (Humalog Med) 0 units SC ACHS [facility]; Protocol Last Admin: 05/05/18 11:41 Dose: Not Given Levothyroxine Sodium (Synthroid) 50 mcg PO 0600 [facility] Last Admin: 05/05/18 06:59 Dose: 50 mcg Losartan Potassium (Cozaar) 25 mg PO DAILY [facility] Last Admin: 05/05/18 10:11 Dose: 25 mg Metoprolol Tartrate (Lopressor) 50 mg PO BID [facility] Last Admin: 05/05/18 10:09 Dose: 50 mg Multivitamins/Minerals (Therapeutic-M Tab) 1 tab PO DAILY [facility] Last Admin: 05/05/18 10:08 Dose: 1 tab Mupirocin (Bactroban Ointment) 0 gm TOP BID [facility] Last Admin: 05/05/18 10:13 Dose: 1 applic Nystatin (Nystop Topical Powder) 0 gm TOP BID [facility] Last Admin: 05/05/18 10:13 Dose: 1 applic Potassium Chloride (Klor-Con 10) 10 meq PO DAILY [facility] Last Admin: 05/05/18 10:09 Dose: 10 meq Quetiapine Fumarate (Seroquel) 25 mg PO HS [facility]; Protocol Last Admin: 05/04/18 22:18 Dose: 25 mg Results - Vital Signs Recent Vital Signs: Last Vital Signs Temp 98 F 05/05/18 08:15 Pulse 66 05/05/18 10:11 Resp 19 05/05/18 08:15 BP 109/49 L 05/05/18 10:11 Pulse Ox 95 05/05/18 08:15 - Labs Result Diagrams: 05/05/18 06:15 05/05/18 06:15 Labs: Laboratory Results - last 24 hr 05/04/18 05/04/18 05/05/18 16:02 21:11 06:15 WBC 6.6 D RBC 3.36 L Hgb 10.2 L Hct 32.1 L MCV 95.5 MCH 30.4 MCHC 31.8 RDW 13.7 Plt Count 178 MPV 12.1 H Sodium Potassium Chloride Carbon Dioxide Anion Gap BUN Creatinine Est GFR ( Amer) Est GFR (Non-Af Amer) POC Glucose (mg/dL) 203 H 130 H Random Glucose Calcium Total Bilirubin AST ALT Alkaline Phosphatase Total Protein Albumin Globulin Albumin/Globulin Ratio 05/05/18 05/05/18 05/05/18 06:15 07:09 11:08 WBC RBC Hgb Hct MCV MCH MCHC RDW Plt Count MPV Sodium 139 Potassium 3.9 Chloride 104 Carbon Dioxide 28 Anion Gap 10 BUN 42 H Creatinine 1.6 H Est GFR ( Amer) 38 Est GFR (Non-Af Amer) 31 POC Glucose (mg/dL) 101 133 H Random Glucose 128 H Calcium 8.8 Total Bilirubin 0.4 AST 44 H ALT 23 Alkaline Phosphatase 178 H Total Protein 6.8 Albumin 3.4 Globulin 3.4 Albumin/Globulin Ratio 1.0 L Attending/Attestation - Attestation I have personally seen and examined this patient.: Yes I have fully participated in the care of the patient.: Yes I have reviewed all pertinent clinical information: Yes
[2018-05-04] MEDS: Aztreonam 1 Gm in NS 100mL 100 ML IVPB SCH ×2 (13:18→22:16)
--- NOTE | 2018-05-04 14:50 | CP.PCM.CON ---
History of Present Illness - History of Present Illness History of Present Illness: 82 year old female with PMH of obesity with BMI 38, osteoarthritis, HTN, DM, hypothyroidism, S/P left toe amputation, S/P right hip surgery came in to [facility] after her visiting nurse noted that the right heel ulcer was worsening over the past 5 days. She was prescribed Ciprofloxacin as an outpatient by Podiatry but the ulcer still worsened. The patient denies fever or chills, no oozing from the right heel, denies specific trauma to the foot, no nausea or vomiting, no headache or dizziness, no chest pain, no SOB, no cough or rhinorrhea, no diarrhea, no dysuria. She also denies animal contacts, denies soaking her feet in water. Infectious diseases consult is requested to further evaluate and manage. Review of Systems - Review of Systems All systems: reviewed and no additional remarkable complaints except (as per HPI) Past Patient History - Infectious Disease Hx of Infectious Diseases: None - Tetanus Immunizations Tetanus Immunization: Unknown - Past Medical History & Family History Past Medical History?: Yes - Past Social History Smoking Status: Never Smoked - CARDIAC Hx Cardiac Disorders: Yes (CAD,) Hx Hypertension: Yes - PULMONARY Hx Respiratory Disorders: No - NEUROLOGICAL Hx Neurological Disorder: Yes (PHERIPHERAL NEUROPATHY) - HEENT Hx HEENT Problems: Yes Hx Cataracts: Yes - RENAL Hx Chronic Kidney Disease: No - ENDOCRINE/METABOLIC Hx Diabetes Mellitus Type 2: Yes Hx Hypothyroidism: Yes - HEMATOLOGICAL/ONCOLOGICAL Hx Blood Disorders: No - INTEGUMENTARY Hx Dermatological Problems: Yes Other/Comment: L GREAT TOE AND RIGHT 2ND TOE AMPUATED. - MUSCULOSKELETAL/RHEUMATOLOGICAL Hx Falls: Yes Other/Comment: multiple toe amputations - GASTROINTESTINAL Hx Gastroesophageal Reflux: Yes - GENITOURINARY/GYNECOLOGICAL Hx Genitourinary Disorders: Yes - PSYCHIATRIC Hx Emotional Abuse: No Hx Physical Abuse: No Hx Substance Use: No - SURGICAL HISTORY Hx Orthopedic Surgery: Yes (toe amputations) Other/Comment: carpal tunnel. R hip marisol - ANESTHESIA Hx Anesthesia: Yes Hx Anesthesia Reactions: No Hx Malignant Hyperthermia: No Meds Allergies/Adverse Reactions: Allergies Allergy/AdvReac Type Severity Reaction Status Date / Time Penicillins Allergy Intermediate ITCHING Verified 10/28/17 23:52 - Medications Medications: Current Medications Aspirin (Ecotrin) 81 mg PO DAILY [facility] Atorvastatin Calcium (Lipitor) 20 mg PO HS [facility] Last Admin: 05/03/18 23:01 Dose: 20 mg Calcium/Vitamin D (Oscal-D 250 Mg-125 Units Tab) 2 tab PO DAILY [facility] Famotidine (Pepcid) 20 mg PO DAILY [facility] Furosemide (Lasix) 40 mg IVP DAILY [facility] Glipizide (Glucotrol Xl) 5 mg PO ACBD [facility] Aztreonam (Azactam 1 Gm) 100 mls @ 100 mls/hr IVPB Q8 [facility]; Protocol Stop: 05/11/18 14:01 Vancomycin HCl (Vancomycin 1gm) 1 gm in 250 mls @ 167 mls/hr IVPB [facility]; Protocol Stop: 05/04/18 08:09 Insulin Detemir (Levemir) 23 unit SC Q12 [facility] Insulin Human Lispro (Humalog Med) 0 units SC ACHS [facility]; Protocol Last Admin: 05/03/18 23:02 Dose: Not Given Levothyroxine Sodium (Synthroid) 50 mcg PO 0600 [facility] Last Admin: 05/04/18 06:18 Dose: 50 mcg Losartan Potassium (Cozaar) 25 mg PO DAILY [facility] Metoprolol Tartrate (Lopressor) 50 mg PO BID [facility] Multivitamins/Minerals (Therapeutic-M Tab) 1 tab PO DAILY [facility] Potassium Chloride (Klor-Con 10) 10 meq PO DAILY [facility] Quetiapine Fumarate (Seroquel) 25 mg PO HS [facility]; Protocol Last Admin: 05/03/18 23:01 Dose: 25 mg Physical Exam - Constitutional Appears: Non-toxic, No Acute Distress, Chronically Ill - Head Exam Head Exam: NORMAL INSPECTION - ENT Exam ENT Exam: Mucous Membranes Moist - Neck Exam Neck exam: Negative for: Lymphadenopathy, Meningismus - Respiratory Exam Respiratory Exam: Decreased Breath Sounds - Cardiovascular Exam Cardiovascular Exam: +S1, +S2 - GI/Abdominal Exam GI & Abdominal Exam: Soft. absent: Tenderness - Extremities Exam Additional comments: right foot with dry dressings in place Results - Vital Signs Recent Vital Signs: Last Vital Signs Temp 98.5 F 05/03/18 20:00 Pulse 88 05/03/18 20:15 Resp 20 05/03/18 20:30 BP 140/62 05/03/18 20:15 Pulse Ox 100 05/03/18 20:15 - Labs Result Diagrams: 05/03/18 18:28 05/03/18 18:36 Labs: Laboratory Results - last 24 hr 05/03/18 05/03/18 05/03/18 18:28 18:36 18:36 WBC 9.2 RBC 3.79 Hgb 11.7 L D Hct 36.0 MCV 95.0 MCH 30.9 MCHC 32.5 RDW 13.4 Plt Count 208 MPV 11.9 H Neut % (Auto) 62.1 Lymph % (Auto) 29.3 [place] % (Auto) 6.5 H Eos % (Auto) 1.9 Baso % (Auto) 0.2 Lymph # (Auto) 2.7 [place] # (Auto) 0.6 Eos # (Auto) 0.2 Baso # (Auto) 0.02 Absolute Neuts (auto) 5.73 PT 13.0 H INR 1.17 APTT 36.6 pO2 27 L VBG pH 7.39 VBG pCO2 55.0 VBG HCO3 33.3 H VBG Total CO2 35.0 H VBG O2 Sat (Calc) 69.9 H VBG Base Excess 6.7 H VBG Potassium 5.2 Sodium 141.0 Chloride 107.0 Glucose 223 H Lactate 1.9 FiO2 21.0 Potassium Carbon Dioxide Anion Gap BUN Creatinine Est GFR ( Amer) Est GFR (Non-Af Amer) POC Glucose (mg/dL) Random Glucose Calcium Phosphorus Magnesium Total Bilirubin AST ALT Alkaline Phosphatase Total Protein Albumin Globulin Albumin/Globulin Ratio Venous Blood Potassium 5.2 Urine Color Urine Appearance Urine pH Ur Specific [place] Urine Protein Urine Glucose (UA) Urine Ketones Urine Blood Urine Nitrate Urine Bilirubin Urine Urobilinogen Ur Leukocyte Esterase 05/03/18 05/03/18 05/03/18 18:36 18:56 21:05 WBC RBC Hgb Hct MCV MCH MCHC RDW Plt Count MPV Neut % (Auto) Lymph % (Auto) [place] % (Auto) Eos % (Auto) Baso % (Auto) Lymph # (Auto) [place] # (Auto) Eos # (Auto) Baso # (Auto) Absolute Neuts (auto) PT INR APTT pO2 VBG pH VBG pCO2 VBG HCO3 VBG Total CO2 VBG O2 Sat (Calc) VBG Base Excess VBG Potassium Sodium 140 Chloride 102 Glucose Lactate FiO2 Potassium 5.0 Carbon Dioxide 30 Anion Gap 12 BUN 46 H Creatinine 1.2 Est GFR ( Amer) 52 Est GFR (Non-Af Amer) 43 POC Glucose (mg/dL) 223 H 185 H Random Glucose 208 H Calcium 9.9 Phosphorus 3.6 Magnesium 1.9 Total Bilirubin 0.4 AST 48 H D ALT 29 Alkaline Phosphatase 212 H Total Protein 8.4 H Albumin 4.2 Globulin 4.1 Albumin/Globulin Ratio 1.0 L Venous Blood Potassium Urine Color Urine Appearance Urine pH Ur Specific [place] Urine Protein Urine Glucose (UA) Urine Ketones Urine Blood Urine Nitrate Urine Bilirubin Urine Urobilinogen Ur Leukocyte Esterase 05/03/18 23:06 WBC RBC Hgb Hct MCV MCH MCHC RDW Plt Count MPV Neut % (Auto) Lymph % (Auto) [place] % (Auto) Eos % (Auto) Baso % (Auto) Lymph # (Auto) [place] # (Auto) Eos # (Auto) Baso # (Auto) Absolute Neuts (auto) PT INR APTT pO2 VBG pH VBG pCO2 VBG HCO3 VBG Total CO2 VBG O2 Sat (Calc) VBG Base Excess VBG Potassium Sodium Chloride Glucose Lactate FiO2 Potassium Carbon Dioxide Anion Gap BUN Creatinine Est GFR ( Amer) Est GFR (Non-Af Amer) POC Glucose (mg/dL) Random Glucose Calcium Phosphorus Magnesium Total Bilirubin AST ALT Alkaline Phosphatase Total Protein Albumin Globulin Albumin/Globulin Ratio Venous Blood Potassium Urine Color Yellow Urine Appearance Clear Urine pH 6.0 Ur Specific [place] 1.015 Urine Protein Negative Urine Glucose (UA) Negative Urine Ketones Negative Urine Blood Negative Urine Nitrate Negative Urine Bilirubin Negative Urine Urobilinogen 0.2 Ur Leukocyte Esterase Negative Assessment & Plan - Assessment and Plan (Free Text) Plan: Assessment right heel ulcer, worsening, probably infected, R/O osteomyelitis 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 Linezolid) history of hypoglycemia, R/O drug-induced (i.e. Levaquin) history of right heel ulcer, infected with MRSA with no evidence of osteomyelitis on MRI - S/P treatment with antibiotics peripheral arterial disease history of left heel infected ulcer with cellulitis without evidence of osteomyelitis on MRI history of 2nd right toe and metatarsal head osteomyelitis S/P surgery chronic renal failure obesity with BMI 38 osteoarthritis HTN DM hypothyroidism S/P left toe amputation S/P right hip surgery Plan started intermittent Vancomycin IV and Azactam pending blood cx, wound cx will await results of MRI Podiatry following and discussed the case with them will monitor clinically
--- NOTE | 2018-05-04 15:14 | PN ---
DATE: 05/04/2018 SUBJECTIVE: The patient is 82 years old, seen and examined, lying in bed, seems to be comfortable. Denies any nausea or vomiting. Eating and tolerating. PHYSICAL EXAMINATION VITAL SIGNS: She is afebrile. Pulse 85, respirations 20, and blood pressure 121/60. LUNGS: Bilateral fair airflow. No rhonchi or crackles. HEART: S1 and S2, audible. ABDOMEN: Soft, obese and nontender. No rebound. No guarding. NEUROLOGIC: She is awake, alert, oriented, able to communicate. LABORATORY DATA: WBC is 9.2, hemoglobin 11.27, hematocrit 36, and platelet is 208. Chemistry, blood sugar is 164. Wound cultures are pending. MRI of the right foot has been ordered. ASSESSMENT 1. Right heel ulcer. 2. Peripheral vascular disease. 3. Insulin-dependant diabetes. 4. Hypertension. 5. Hyperlipidemia. 6. PENICILLIN ALLERGY. PLAN: The patient is currently on Azactam. Local wound care is being done by podiatry team. We will resume her medication, monitor her blood sugar, nystatin for her under the breast. I will continue her on current medication. We will follow up with MRI report and make further recommendations. Liam Fernandez MD
--- NOTE | 2018-05-04 15:26 | CARD ---
APPROVED REPORT Date of service: 05/03/2018 EKG Measurement Heart [id number] <Conclusion> Sinus rhythm with 1st degree AV block Voltage criteria for left ventricular hypertrophy Abnormal ECG
--- NOTE | 2018-05-04 16:18 | CP.PCM.APN ---
Subjective - Date & Time of Evaluation Date of Evaluation: 05/04/18 Time of Evaluation: 10:45 - Subjective Subjective: Pt. seen and examined, in bed resting comfortabley. Denied pain to right heel, denied any other complaints. Objective - Vital Signs/Intake and Output Vital Signs (last 24 hours): Temp Pulse Resp BP Pulse Ox 98 F 81 20 121/60 97 05/04/18 07:55 05/04/18 10:03 05/04/18 07:55 05/04/18 10:03 05/04/18 07:55 Intake and Output: 05/04/18 05/04/18 06:59 18:59 Intake Total 240 Output Total 1000 Balance -760 - Medications Medications: Current Medications Aspirin (Ecotrin) 81 mg PO DAILY [facility] Last Admin: 05/04/18 09:51 Dose: 81 mg Atorvastatin Calcium (Lipitor) 20 mg PO HS [facility] Last Admin: 05/03/18 23:01 Dose: 20 mg Calcium/Vitamin D (Oscal-D 250 Mg-125 Units Tab) 2 tab PO DAILY [facility] Last Admin: 05/04/18 09:52 Dose: 2 tab Famotidine (Pepcid) 20 mg PO DAILY [facility] Last Admin: 05/04/18 09:53 Dose: 20 mg Ferrous Gluconate (Fergon) 324 mg PO TID [facility] Last Admin: 05/04/18 13:17 Dose: 324 mg Furosemide (Lasix) 40 mg IVP DAILY [facility] Last Admin: 05/04/18 10:03 Dose: 40 mg Glipizide (Glucotrol Xl) 5 mg PO ACBD [facility] Last Admin: 05/04/18 08:16 Dose: 5 mg Aztreonam (Azactam 1 Gm) 100 mls @ 100 mls/hr IVPB Q8 [facility]; Protocol Stop: 05/11/18 14:01 Last Admin: 05/04/18 13:18 Dose: 100 mls/hr Insulin Detemir (Levemir) 23 unit SC Q12 [facility] Last Admin: 05/04/18 10:03 Dose: 23 units Insulin Human Lispro (Humalog Med) 0 units SC ACHS [facility]; Protocol Last Admin: 05/04/18 11:37 Dose: 1 unit Levothyroxine Sodium (Synthroid) 50 mcg PO 0600 [facility] Last Admin: 05/04/18 06:18 Dose: 50 mcg Losartan Potassium (Cozaar) 25 mg PO DAILY [facility] Last Admin: 05/04/18 09:52 Dose: 25 mg Metoprolol Tartrate (Lopressor) 50 mg PO BID [facility] Last Admin: 05/04/18 10:03 Dose: 50 mg Multivitamins/Minerals (Therapeutic-M Tab) 1 tab PO DAILY [facility] Last Admin: 05/04/18 10:04 Dose: 1 tab Mupirocin (Bactroban Ointment) 0 gm TOP BID [facility] Nystatin (Nystop Topical Powder) 0 gm TOP BID [facility] Potassium Chloride (Klor-Con 10) 10 meq PO DAILY [facility] Last Admin: 05/04/18 09:52 Dose: 10 meq Quetiapine Fumarate (Seroquel) 25 mg PO HS [facility]; Protocol Last Admin: 05/03/18 23:01 Dose: 25 mg - Labs Labs: 05/03/18 18:28 05/03/18 18:36 PT 13.0 SECONDS (9.4-12.5) H 05/03/18 18:36 INR 1.17 05/03/18 18:36 APTT 36.6 Seconds (26.9-38.3) 05/03/18 18:36 - Constitutional Appears: Well, Non-toxic - Head Exam Head Exam: NORMOCEPHALIC - Eye Exam Eye Exam: Normal appearance - Neck Exam Neck Exam: Full ROM - Respiratory Exam Respiratory Exam: NORMAL BREATHING PATTERN - Cardiovascular Exam Cardiovascular Exam: REGULAR RHYTHM, +S1, +S2 - GI/Abdominal Exam GI & Abdominal Exam: absent: Bruit, Distended, Firm, Guarding, Rigid, Soft, Tenderness, Diminished Bowel Sounds, Hernia, Hyperactive Bowel Sounds, Hypoactive Bowel Sounds, Normal Bowel Sounds, Organomegaly, Pulsatile Mass, Rebound, Mass - Rectal Exam Rectal Exam: Deferred - Exam Exam: absent: Circumcision, NORMAL INSPECTION, Scrotal Swelling, Testicular Tenderness, Uretheral Discharge, Testicular Vertical Lie, Bladder Distension Speculum exam: absent: Cervical Discharge, Erythema, Foreign Body, Laceration, NORMAL SPECULUM EXAM, Tissue, Vaginal Bleeding, Vaginal Discharge Bimanual exam: absent: Adenexal Mass, Adnexal, Cervical Motion Tendernes, NORMAL BIMANUAL EXAM, Uterine Enlargement, Uterine Tenderness - Extremities Exam Additional comments: Right foot with heel ulcer, wrapped with dressing. - Neurological Exam Neurological Exam: Alert, Awake, Oriented x3 - Psychiatric Exam Psychiatric exam: Normal Affect, Normal Mood - Skin Skin Exam: Dry, Intact, Normal Color, Warm Assessment and Plan - Assessment and Plan (Free Text) Assessment: Impressions Heel X-Ray 05/03/18 18:33 IMPRESSION: No acute fracture or dislocation of the right calcaneus/hindfoot as imaged. Advanced degenerative changes are appreciated and there is a large plantar calcaneal spur. Midfoot dorsal soft tissue edema identified. Chest X-Ray 05/03/18 18:35 IMPRESSION: No interval acute cardiopulmonary disease appreciated. Laboratory Results WBC 9.2 10^3/uL (4.5-11.0) 05/03/18 18: RBC 3.79 10^6/uL (3.5-6.1) 05/03/18 18: Hgb 11.7 g/dL (12.0-16.0) L D 05/03/18 18: Hct 36.0 % (36.0-48.0) 05/03/18: MCV 95.0 fl (80.0-105.0) 05/03/18 18: MCH 30.9 pg (25.0-35.0) 05/03/18 18: MCHC 32.5 g/dl (31.0-37.0) 05/03/18 18: RDW 13.4 % (11.5-14.5) 05/03/18 18: Plt Count 208 10^3/uL (120.0-450.0) 05/03/18 18: MPV 11.9 fl (7.0-11.0) H 05/03/18 18: Neut % (Auto) 62.1 % (50.0-68.0) 05/03/18 18: Lymph % (Auto) 29.3 % (22.0-35.0) 05/03/18 18: Thurston % (Auto) 6.5 % (1.0-6.0) H 05/03/18 18: Eos % (Auto) 1.9 % (1.5-5.0) 05/03/18 18: Baso % (Auto) 0.2 % (0.0-3.0) 05/03/18 18: Lymph # (Auto) 2.7 (1.2-3.4) 05/03/18 18:28 Thurston # (Auto) 0.6 (0.1-0.6) 05/03/18 18:28 Eos # (Auto) 0.2 (0.0-0.7) 05/03/18 18:28 Baso # (Auto) 0.02 K/mm3 (0.0-2.0) 05/03/18 18:28 Absolute Neuts (auto) 5.73 (1.4-6.5) 05/03/18 18:28 PT 13.0 SECONDS (9.4-12.5) H 05/03/18 18:36 INR 1.17 05/03/18 18:36 APTT 36.6 Seconds (26.9-38.3) 05/03/18 18:36 pO2 27 mm/Hg (30-55) L 05/03/18 18:36 VBG pH 7.39 (7.32-7.43) 05/03/18 18:36 VBG pCO2 55.0 (40-60) 05/03/18 18:36 VBG HCO3 33.3 mmol/l (21-28) H 05/03/18 18:36 VBG Total CO2 35.0 mmol.L (22-28) H 05/03/18 18:36 VBG O2 Sat (Calc) 69.9 % (40-65) H 05/03/18 18:36 VBG Base Excess 6.7 mmol/L (0.0-2.0) H 05/03/18 18:36 VBG Potassium 5.2 mmol/L (3.6-5.2) 05/03/18 18:36 Sodium 141.0 mmol/L (132-148) 05/03/18 18:36 Chloride 107.0 mmol/L (98-107) 05/03/18 18:36 Glucose 223 mg/dl (65-105) H 05/03/18 18:36 Lactate 1.9 mmol/L (0.7-2.1) 05/03/18 18:36 FiO2 21.0 % 05/03/18 18:36 Sodium 140 mmol/L (132-148) 05/03/18 18:36 Potassium 5.0 mmol/L (3.6-5.0) 05/03/18 18:36 Chloride 102 mmol/L (98-107) 05/03/18 18:36 Carbon Dioxide 30 mmol/L (21-33) 05/03/18 18:36 Anion Gap 12 (10-20) 05/03/18 18:36 BUN 46 mg/dL (7-21) H 05/03/18 18:36 Creatinine 1.2 mg/dl (0.7-1.2) 05/03/18 18:36 Est GFR ( Amer) 52 05/03/18 18:36 Est GFR (Non-Af Amer) 43 05/03/18 18:36 POC Glucose (mg/dL) 203 mg/dL (65-110) H 05/04/18 16:02 Random Glucose 208 mg/dL (70-110) H 05/03/18 18:36 Calcium 9.9 mg/dL (8.4-10.5) 05/03/18 18:36 Phosphorus 3.6 mg/dL (2.5-4.5) 05/03/18 18:36 Magnesium 1.9 mg/dL (1.7-2.2) 05/03/18 18:36 Total Bilirubin 0.4 mg/dL (0.2-1.3) 05/03/18 18:36 AST 48 U/L (14-36) H D 05/03/18 18:36 ALT 29 U/L (7-56) 05/03/18 18:36 Alkaline Phosphatase 212 U/L (38-126) H 05/03/18 18:36 Total Protein 8.4 g/dL (5.8-8.3) H 05/03/18 18:36 Albumin 4.2 g/dL (3.0-4.8) 05/03/18 18:36 Globulin 4.1 gm/dL 05/03/18 18:36 Albumin/Globulin Ratio 1.0 (1.1-1.8) L 05/03/18 18:36 Venous Blood Potassium 5.2 mmol/L (3.6-5.2) 05/03/18 18:36 Urine Color Yellow (YELLOW) 05/03/18 23:06 Urine Appearance Clear (CLEAR) 05/03/18 23:06 Urine pH 6.0 (4.7-8.0) 05/03/18 23:06 Ur Specific [place] 1.015 (1.005-1.035) 05/03/18 23:06 Urine Protein Negative mg/dL (<30 mg/dL) 05/03/18 23:06 Urine Glucose (UA) Negative mg/dL (NEGATIVE) 05/03/18 23:06 Urine Ketones Negative mg/dL (NEGATIVE) 05/03/18 23:06 Urine Blood Negative (NEGATIVE) 05/03/18 23:06 Urine Nitrate Negative (NEGATIVE) 05/03/18 23:06 Urine Bilirubin Negative (NEGATIVE) 05/03/18 23:06 Urine Urobilinogen 0.2 E.U./dL (<1 E.U./dL) 05/03/18 23:06 Ur Leukocyte Esterase Negative Jimmie/uL (NEGATIVE) 05/03/18 23:06 Assessment: 82 year old female with PMH of obesity with BMI 38, osteoarthritis, HTN, DM, hypothyroidism, S/P left toe amputation, S/P right hip surgery [place] [facility] [place] nurse noted that the right heel ulcer was worsening over the past 5 days. She was prescribed Ciprofloxacin as an outpatient by Podiatry but the ulcer still worsened, admitted with infected right heel ulcer, with infectious disease consulted, podiatry consulted. Plan: 1. Cellulitis/ infected ulcer right heel - wound cx results pending, MRI results pending, Antibiotics as per I.D. 2. Right heel ulcer Treatment , recs per podiatry, Mri pending for eval of osteo 3.. IDDM continue insulin and oral hypoglycemic, monitor blood glucose. Will continue to monitor clinical status and follow closely pt. eval pending.
--- NOTE | 2018-05-04 17:11 | MRI ---
Date of service: 05/04/2018 PROCEDURE: MRI of the right foot HISTORY: r/o right heel osteomyelitis COMPARISON: TECHNIQUE: MRI of the right foot was performed in multiple planes using multiple pulse sequences. FINDINGS: The bone marrow signal intensity is normal. There is no marrow edema to suggest osteomyelitis. There is a large calcaneal spur along the plantar aspect of the calcaneus with some thickening of the plantar fascia. Degenerative changes are seen in the midfoot with loss of the normal arch. There loss of the normal fat planes in the sinus tarsi. Ossified fragments are seen within or along side the peroneal tendons. There is subcutaneous edema over the dorsum of the foot. IMPRESSION: No evidence of osteomyelitis
[2018-05-04] MEDS: Mupirocin 2% Ointment 15 GM TUBE TOP SCH (17:13)
[2018-05-04] MEDS: Nystatin 100,000 Units/gm Topical Pow(15 gm) TOP SCH (17:26)
[2018-05-05] MEDS: Aztreonam 1 Gm in NS 100mL 100 ML IVPB SCH ×3 (05:49→21:15)
[2018-05-05 06:32] LABS: HEMOGLOBIN 10.2 g/dL (12.0-16.0); MEAN CELL VOLUME 95.5 fl (80.0-105.0); MEAN CORPUSCULAR HEMOGLOBIN 30.4 pg (25.0-35.0); MEAN CORPUSCULAR HGB CONC 31.8 g/dl (31.0-37.0); MEAN PLATELET VOLUME 12.1 fl (7.0-11.0); RBC 3.36 10^6/uL (3.5-6.1); RED CELL DISTRIBUTION WIDTH 13.7 % (11.5-14.5); WHITE BLOOD COUNT 6.6 10^3/uL (4.5-11.0)
[2018-05-05] MEDS: Levothyroxine 50 MCG TAB PO SCH (06:59)
[2018-05-05 07:16] LABS: ALBUMIN 3.4 g/dL (3.0-4.8); CALCIUM 8.8 mg/dL (8.4-10.5)
[2018-05-05] MEDS: Insulin Lispro (humaLOG) MEDIUM Coverage SC SCH ×4 (08:01→21:16)
[2018-05-05] MEDS: GlipiZIDE 5 mg SR Tab PO SCH ×2 (08:01→17:17)
[2018-05-05] MEDS ORDERED: Vancomycin 1gm in NS 250ml 1 GM/250 ML BAG IVPB STA (09:35)
[2018-05-05] MEDS ORDERED: Iron Complex Polysacch 150mg Cap PO SCH (10:00)
[2018-05-05] MEDS: Insulin Detemir 100 units/ml Vial (Levemir) SC SCH ×2 (10:04→21:17)
[2018-05-05] MEDS: Multivitamin With Minerals Tab PO SCH (10:08)
[2018-05-05] MEDS: Potassium Chloride 10 mEq ER Tab PO SCH (10:09)
[2018-05-05] MEDS: Calcium-Vit D 250 mg-125 Units Tab UD PO SCH (10:10)
[2018-05-05] MEDS: Nystatin 100,000 Units/gm Topical Pow(15 gm) TOP SCH ×2 (10:13→17:19)
[2018-05-05] MEDS: Mupirocin 2% Ointment 15 GM TUBE TOP SCH ×2 (10:13→17:18)
--- NOTE | 2018-05-05 11:42 | CP.PCM.PN ---
<Shanna Jane - Last Filed: 05/05/18 11:39> Subjective - Date & Time of Evaluation Date of Evaluation: 05/05/18 Time of Evaluation: 11:40 - Subjective Subjective: Podiatry Consult note for Dr. Owusu 82 year old F with PMHx CAD, Diabetes, PAD, peripheral neuropathy, and previous amputations seen at bedside with Dr. Bartlett for infected right heel ulcer. She is AAO x 3 and NAD at time of visit. Patient is very well known to the podiatry service. Patient denies any further pedal complaints at this time. Denies any acute overnight events. Denies any recent N/V/F/C/CP/SOB/D/posterior calf pain when squeezed. Patient's family member present at bedside. Patient likely to be transferred to TCU Objective - Vital Signs/Intake and Output Vital Signs (last 24 hours): Temp Pulse Resp BP Pulse Ox 98 F 66 19 109/49 L 95 05/05/18 08:15 05/05/18 10:11 05/05/18 08:15 05/05/18 10:11 05/05/18 08:15 Intake and Output: 05/05/18 05/05/18 06:59 18:59 Intake Total 200 Balance 200 - Medications Medications: Current Medications Aspirin (Ecotrin) 81 mg PO DAILY [facility] Last Admin: 05/05/18 10:09 Dose: 81 mg Atorvastatin Calcium (Lipitor) 20 mg PO HS [facility] Last Admin: 05/04/18 22:17 Dose: 20 mg Calcium/Vitamin D (Oscal-D 250 Mg-125 Units Tab) 2 tab PO DAILY [facility] Last Admin: 05/05/18 10:10 Dose: 2 tab Famotidine (Pepcid) 20 mg PO DAILY [facility] Last Admin: 05/05/18 10:10 Dose: 20 mg Ferrous Gluconate (Fergon) 324 mg PO TID [facility] Last Admin: 05/05/18 10:14 Dose: 324 mg Furosemide (Lasix) 40 mg IVP DAILY [facility] Last Admin: 05/05/18 10:06 Dose: 40 mg Glipizide (Glucotrol Xl) 5 mg PO ACBD [facility] Last Admin: 05/05/18 08:01 Dose: 5 mg Aztreonam (Azactam 1 Gm) 100 mls @ 100 mls/hr IVPB Q8 [facility]; Protocol Stop: 05/11/18 14:01 Last Admin: 05/05/18 05:49 Dose: 100 mls/hr Insulin Detemir (Levemir) 23 unit SC Q12 [facility] Last Admin: 05/05/18 10:04 Dose: 23 units Insulin Human Lispro (Humalog Med) 0 units SC ACHS [facility]; Protocol Last Admin: 05/05/18 08:01 Dose: Not Given Levothyroxine Sodium (Synthroid) 50 mcg PO 0600 [facility] Last Admin: 05/05/18 06:59 Dose: 50 mcg Losartan Potassium (Cozaar) 25 mg PO DAILY [facility] Last Admin: 05/05/18 10:11 Dose: 25 mg Metoprolol Tartrate (Lopressor) 50 mg PO BID [facility] Last Admin: 05/05/18 10:09 Dose: 50 mg Multivitamins/Minerals (Therapeutic-M Tab) 1 tab PO DAILY [facility] Last Admin: 05/05/18 10:08 Dose: 1 tab Mupirocin (Bactroban Ointment) 0 gm TOP BID [facility] Last Admin: 05/05/18 10:13 Dose: 1 applic Nystatin (Nystop Topical Powder) 0 gm TOP BID [facility] Last Admin: 05/05/18 10:13 Dose: 1 applic Potassium Chloride (Klor-Con 10) 10 meq PO DAILY [facility] Last Admin: 05/05/18 10:09 Dose: 10 meq Quetiapine Fumarate (Seroquel) 25 mg PO HS [facility]; Protocol Last Admin: 05/04/18 22:18 Dose: 25 mg - Labs Labs: 05/05/18 06:15 05/05/18 06:15 PT 13.0 SECONDS (9.4-12.5) H 05/03/18 18:36 INR 1.17 05/03/18 18:36 APTT 36.6 Seconds (26.9-38.3) 05/03/18 18:36 - Constitutional Appears: Well, Non-toxic, No Acute Distress - Head Exam Head Exam: ATRAUMATIC, NORMOCEPHALIC - Extremities Exam Additional comments: LE focused exam Vasc: DP/PT pulses faintly palpable 1/4 b/l. Skin temperature warm to warm from proximal to distal. CFT < 3 seconds to all digits b/l. Moderate edema diffusely Neuro: Epicritic and protective sensation grossly absent b/l Derm: Right heel - 2.5 cm x 2.5 cm x 0.3 cm posterior right heel ulceration with Mild periwound erythema, wound bed 80% angry granular tissue with 20% necrotic central patch, minimal serous drainage, no malodor, no purulence, negative probe to bone, no tracking/tunneling/undermining noted. Left heel- no wound to plantar heel at this time MSK: No POP to any ulceration site. ROM WNL at all major joints for age. MMT 4/5 in all major muscle groups. No other gross deformities noted - Neurological Exam Neurological Exam: Alert, Awake, Oriented x3 - Psychiatric Exam Psychiatric exam: Normal Affect, Normal Mood Assessment and Plan - Assessment and Plan (Free Text) Assessment: 81 y/o female seen and evaluated at bedside for right heel ulcerations, admitted for IV Abx Plan: Patient seen and evaluated with attending Dr. Owusu Labs, vitals and charts reviewed- afebrile, absent leukocytosis at this time R heel X-ray: no signs of osteomyelitis noted R heel MRI: no acute osteomyelitis noted LE arterial duplex (10/25): Normal MCKENNA/PVR at rest Wound Cultures: Gram Positive Cocci, Corneybacterium species R heel dressed with bactroban, adaptic, maxorb, DSD, light OLGA LIDIA L heel dressed with optifoam Multipodus boots to be worn at all times Continue PO abx per ID Infectious disease consult- recommendations appreciated Podiatry will continue to follow while patient in house <Robby Owusu - Last Filed: 05/05/18 11:53> Objective - Vital Signs/Intake and Output Vital Signs (last 24 hours): Temp Pulse Resp BP Pulse Ox 98 F 66 19 109/49 L 95 05/05/18 08:15 05/05/18 10:11 05/05/18 08:15 05/05/18 10:11 05/05/18 08:15 Intake and Output: 05/05/18 05/05/18 06:59 18:59 Intake Total 200 Balance 200 - Medications Medications: Current Medications Aspirin (Ecotrin) 81 mg PO DAILY [facility] Last Admin: 05/05/18 10:09 Dose: 81 mg Atorvastatin Calcium (Lipitor) 20 mg PO HS [facility] Last Admin: 05/04/18 22:17 Dose: 20 mg Calcium/Vitamin D (Oscal-D 250 Mg-125 Units Tab) 2 tab PO DAILY [facility] Last Admin: 05/05/18 10:10 Dose: 2 tab Famotidine (Pepcid) 20 mg PO DAILY [facility] Last Admin: 05/05/18 10:10 Dose: 20 mg Ferrous Gluconate (Fergon) 324 mg PO TID [facility] Last Admin: 05/05/18 10:14 Dose: 324 mg Furosemide (Lasix) 40 mg IVP DAILY [facility] Last Admin: 05/05/18 10:06 Dose: 40 mg Glipizide (Glucotrol Xl) 5 mg PO ACBD [facility] Last Admin: 05/05/18 08:01 Dose: 5 mg Aztreonam (Azactam 1 Gm) 100 mls @ 100 mls/hr IVPB Q8 [facility]; Protocol Stop: 05/11/18 14:01 Last Admin: 05/05/18 05:49 Dose: 100 mls/hr Insulin Detemir (Levemir) 23 unit SC Q12 [facility] Last Admin: 05/05/18 10:04 Dose: 23 units Insulin Human Lispro (Humalog Med) 0 units SC ACHS [facility]; Protocol Last Admin: 05/05/18 11:41 Dose: Not Given Levothyroxine Sodium (Synthroid) 50 mcg PO 0600 [facility] Last Admin: 05/05/18 06:59 Dose: 50 mcg Losartan Potassium (Cozaar) 25 mg PO DAILY [facility] Last Admin: 05/05/18 10:11 Dose: 25 mg Metoprolol Tartrate (Lopressor) 50 mg PO BID [facility] Last Admin: 05/05/18 10:09 Dose: 50 mg Multivitamins/Minerals (Therapeutic-M Tab) 1 tab PO DAILY [facility] Last Admin: 05/05/18 10:08 Dose: 1 tab Mupirocin (Bactroban Ointment) 0 gm TOP BID [facility] Last Admin: 05/05/18 10:13 Dose: 1 applic Nystatin (Nystop Topical Powder) 0 gm TOP BID [facility] Last Admin: 05/05/18 10:13 Dose: 1 applic Potassium Chloride (Klor-Con 10) 10 meq PO DAILY [facility] Last Admin: 05/05/18 10:09 Dose: 10 meq Quetiapine Fumarate (Seroquel) 25 mg PO HS [facility]; Protocol Last Admin: 05/04/18 22:18 Dose: 25 mg - Labs Labs: 05/05/18 06:15 05/05/18 06:15 PT 13.0 SECONDS (9.4-12.5) H 05/03/18 18:36 INR 1.17 05/03/18 18:36 APTT 36.6 Seconds (26.9-38.3) 05/03/18 18:36 Attending/Attestation - Attestation I have personally seen and examined this patient.: Yes I have fully participated in the care of the patient.: Yes I have reviewed all pertinent clinical information, including history, physical exam and plan: Yes
--- NOTE | 2018-05-05 14:52 | CP.PCM.APN ---
Subjective - Date & Time of Evaluation Date of Evaluation: 05/05/18 Time of Evaluation: 10:00 - Subjective Subjective: Pt. seen and examined in bed, denied complaints. RR easy and unlabored. Objective - Vital Signs/Intake and Output Vital Signs (last 24 hours): Temp Pulse Resp BP Pulse Ox 98 F 66 19 109/49 L 95 05/05/18 08:15 05/05/18 10:11 05/05/18 08:15 05/05/18 10:11 05/05/18 08:15 Intake and Output: 05/05/18 05/05/18 06:59 18:59 Intake Total 200 Balance 200 - Medications Medications: Current Medications Aspirin (Ecotrin) 81 mg PO DAILY [facility] Last Admin: 05/05/18 10:09 Dose: 81 mg Atorvastatin Calcium (Lipitor) 20 mg PO HS [facility] Last Admin: 05/04/18 22:17 Dose: 20 mg Calcium/Vitamin D (Oscal-D 250 Mg-125 Units Tab) 2 tab PO DAILY [facility] Last Admin: 05/05/18 10:10 Dose: 2 tab Famotidine (Pepcid) 20 mg PO DAILY [facility] Last Admin: 05/05/18 10:10 Dose: 20 mg Ferrous Gluconate (Fergon) 324 mg PO TID [facility] Last Admin: 05/05/18 14:34 Dose: 324 mg Furosemide (Lasix) 40 mg IVP DAILY [facility] Last Admin: 05/05/18 10:06 Dose: 40 mg Glipizide (Glucotrol Xl) 5 mg PO ACBD [facility] Last Admin: 05/05/18 08:01 Dose: 5 mg Aztreonam (Azactam 1 Gm) 100 mls @ 100 mls/hr IVPB Q8 [facility]; Protocol Stop: 05/11/18 14:01 Last Admin: 05/05/18 14:33 Dose: 100 mls/hr Insulin Detemir (Levemir) 23 unit SC Q12 [facility] Last Admin: 05/05/18 10:04 Dose: 23 units Insulin Human Lispro (Humalog Med) 0 units SC ACHS [facility]; Protocol Last Admin: 05/05/18 11:41 Dose: Not Given Levothyroxine Sodium (Synthroid) 50 mcg PO 0600 [facility] Last Admin: 05/05/18 06:59 Dose: 50 mcg Losartan Potassium (Cozaar) 25 mg PO DAILY [facility] Last Admin: 05/05/18 10:11 Dose: 25 mg Metoprolol Tartrate (Lopressor) 50 mg PO BID [facility] Last Admin: 05/05/18 10:09 Dose: 50 mg Multivitamins/Minerals (Therapeutic-M Tab) 1 tab PO DAILY [facility] Last Admin: 05/05/18 10:08 Dose: 1 tab Mupirocin (Bactroban Ointment) 0 gm TOP BID [facility] Last Admin: 05/05/18 10:13 Dose: 1 applic Nystatin (Nystop Topical Powder) 0 gm TOP BID [facility] Last Admin: 05/05/18 10:13 Dose: 1 applic Potassium Chloride (Klor-Con 10) 10 meq PO DAILY [facility] Last Admin: 05/05/18 10:09 Dose: 10 meq Quetiapine Fumarate (Seroquel) 25 mg PO HS [facility]; Protocol Last Admin: 05/04/18 22:18 Dose: 25 mg - Labs Labs: 05/05/18 06:15 05/05/18 06:15 PT 13.0 SECONDS (9.4-12.5) H 05/03/18 18:36 INR 1.17 05/03/18 18:36 APTT 36.6 Seconds (26.9-38.3) 05/03/18 18:36 - Constitutional Appears: Well, Non-toxic - Head Exam Head Exam: NORMOCEPHALIC - Eye Exam Eye Exam: Normal appearance - ENT Exam ENT Exam: absent: Mucous Membranes Dry, Mucous Membranes Moist, Normal Exam, Normal External Ear Exam, Normal Oropharynx, TM's Normal Bilaterally - Neck Exam Neck Exam: Full ROM - Respiratory Exam Respiratory Exam: Clear to Ausculation Bilateral - Cardiovascular Exam Cardiovascular Exam: REGULAR RHYTHM, +S1, +S2 - GI/Abdominal Exam GI & Abdominal Exam: Soft - Rectal Exam Rectal Exam: Deferred - Exam Exam: absent: Circumcision, NORMAL INSPECTION, Scrotal Swelling, Testicular Tenderness, Uretheral Discharge, Testicular Vertical Lie, Bladder Distension External exam: absent: Ecchymosis, Erythema, Lacerations, Lesions, NORMAL EXTERNAL EXAM, Swelling Speculum exam: absent: Cervical Discharge, Erythema, Foreign Body, Laceration, NORMAL SPECULUM EXAM, Tissue, Vaginal Bleeding, Vaginal Discharge Bimanual exam: absent: Adenexal Mass, Adnexal, Cervical Motion Tendernes, NORMAL BIMANUAL EXAM, Uterine Enlargement, Uterine Tenderness - Extremities Exam Extremities Exam: Full ROM Additional comments: Right heel with ulcer noted, no drainage noted. - Neurological Exam Neurological Exam: Alert, Awake, Oriented x3 - Skin Skin Exam: Dry, Normal Color, Warm Assessment and Plan - Assessment and Plan (Free Text) Assessment: ITS Impressions Heel X-Ray 05/03/18 18:33 IMPRESSION: No acute fracture or dislocation of the right calcaneus/hindfoot as imaged. Advanced degenerative changes are appreciated and there is a large plantar calcaneal spur. Midfoot dorsal soft tissue edema identified. Chest X-Ray 05/03/18 18:35 IMPRESSION: No interval acute cardiopulmonary disease appreciated. Lower Extremity MRI 05/04/18 12:23 IMPRESSION: No evidence of osteomyelitis Assessment: 82 year old female with PMH of obesity with BMI 38, osteoarthritis, HTN, DM, hypothyroidism, S/P left toe amputation, S/P right hip surgery came in to [facility] [place] after her visiting nurse noted that the right heel ulcer was worsening over the past 5 days. She was prescribed Ciprofloxacin as an outpatient by Podiatry but the ulcer still worsened, admitted with infected right heel ulcer, with infectious disease consulted, podiatry consulted. Plan: 1. Cellulitis/ infected ulcer right heel - wound cx results pending, MRI resulted neg for osteo. Antibiotics as per I.D. 2. Right heel ulcer Treatment , recs per podiatry, Mri pending for eval of osteo 3.. IDDM continue insulin and oral hypoglycemic, monitor blood glucose. Will continue to monitor clinical status and follow closely pt. rec TCU, Anticipate DC to TCU tommorow, 05/06, for PT and completion of antibiotics.
--- NOTE | 2018-05-05 14:57 | CP.PCM.PN ---
Subjective - Date & Time of Evaluation Date of Evaluation: 05/05/18 Time of Evaluation: 10:25 - Subjective Subjective: No increase in pain in the feet, no fevers. Objective - Vital Signs/Intake and Output Vital Signs (last 24 hours): Temp Pulse Resp BP Pulse Ox 98 F 81 20 121/60 97 05/04/18 07:55 05/04/18 10:03 05/04/18 07:55 05/04/18 10:03 05/04/18 07:55 Intake and Output: 05/04/18 05/04/18 06:59 18:59 Intake Total 240 Output Total 1000 Balance -760 - Medications Medications: Current Medications Aspirin (Ecotrin) 81 mg PO DAILY [facility] Last Admin: 05/04/18 09:51 Dose: 81 mg Atorvastatin Calcium (Lipitor) 20 mg PO HS [facility] Last Admin: 05/03/18 23:01 Dose: 20 mg Calcium/Vitamin D (Oscal-D 250 Mg-125 Units Tab) 2 tab PO DAILY [facility] Last Admin: 05/04/18 09:52 Dose: 2 tab Famotidine (Pepcid) 20 mg PO DAILY [facility] Last Admin: 05/04/18 09:53 Dose: 20 mg Ferrous Gluconate (Fergon) 324 mg PO TID [facility] Last Admin: 05/04/18 13:17 Dose: 324 mg Furosemide (Lasix) 40 mg IVP DAILY [facility] Last Admin: 05/04/18 10:03 Dose: 40 mg Glipizide (Glucotrol Xl) 5 mg PO ACBD [facility] Last Admin: 05/04/18 08:16 Dose: 5 mg Aztreonam (Azactam 1 Gm) 100 mls @ 100 mls/hr IVPB Q8 [facility]; Protocol Stop: 05/11/18 14:01 Last Admin: 05/04/18 13:18 Dose: 100 mls/hr Insulin Detemir (Levemir) 23 unit SC Q12 [facility] Last Admin: 05/04/18 10:03 Dose: 23 units Insulin Human Lispro (Humalog Med) 0 units SC ACHS [facility]; Protocol Last Admin: 05/04/18 11:37 Dose: 1 unit Levothyroxine Sodium (Synthroid) 50 mcg PO 0600 [facility] Last Admin: 05/04/18 06:18 Dose: 50 mcg Losartan Potassium (Cozaar) 25 mg PO DAILY [facility] Last Admin: 05/04/18 09:52 Dose: 25 mg Metoprolol Tartrate (Lopressor) 50 mg PO BID [facility] Last Admin: 05/04/18 10:03 Dose: 50 mg Multivitamins/Minerals (Therapeutic-M Tab) 1 tab PO DAILY [facility] Last Admin: 05/04/18 10:04 Dose: 1 tab Mupirocin (Bactroban Ointment) 0 gm TOP BID [facility] Nystatin (Nystop Topical Powder) 0 gm TOP BID [facility] Potassium Chloride (Klor-Con 10) 10 meq PO DAILY [facility] Last Admin: 05/04/18 09:52 Dose: 10 meq Quetiapine Fumarate (Seroquel) 25 mg PO HS [facility]; Protocol Last Admin: 05/03/18 23:01 Dose: 25 mg - Labs Labs: 05/03/18 18:28 05/03/18 18:36 PT 13.0 SECONDS (9.4-12.5) H 05/03/18 18:36 INR 1.17 05/03/18 18:36 APTT 36.6 Seconds (26.9-38.3) 05/03/18 18:36 - Constitutional Appears: Chronically Ill - Head Exam Head Exam: NORMAL INSPECTION - Respiratory Exam Respiratory Exam: Decreased Breath Sounds - Cardiovascular Exam Cardiovascular Exam: +S1, +S2 - GI/Abdominal Exam GI & Abdominal Exam: Soft. 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 Linezolid) history of hypoglycemia, R/O drug-induced (i.e. Levaquin) history of right heel ulcer, infected with MRSA with no evidence of osteomyelit is on MRI - S/P treatment with antibiotics peripheral arterial disease history of left heel infected ulcer with cellulitis without evidence of osteomyelitis on MRI history of 2nd right toe and metatarsal head osteomyelitis S/P surgery chronic renal failure obesity with BMI 38 osteoarthritis HTN DM hypothyroidism S/P left toe amputation S/P right hip surgery Plan continue intermittent Vancomycin IV and Azactam and repeat blood cx, follow final wound cx results Podiatry following and discussed the case with them will continue to monitor clinically
--- NOTE | 2018-05-06 00:29 | PN ---
DATE: 05/05/2018 SUBJECTIVE: The patient is 82 years old, she has been doing well. Podiatry team by the bedside, had right foot dressing done. Wound seem to be granulating. PHYSICAL EXAMINATION: VITAL SIGNS: The patient is afebrile, pulse 75, respirations 20, blood pressure 106/45. LUNGS: Bilateral fair airflow. No rhonchi or crackle. HEART: S1 and S2 audible. ABDOMEN: Soft, obese, and nontender. No rebound. No guarding. NEUROLOGIC: The patient is awake, alert, and oriented. Able to communicate. LABORATORY DATA: WBC is 6.6, hemoglobin 10.2, hematocrit 32.1, and platelet of 178. Chemistry; sodium 139, potassium 3.9, chloride 104, CO2 of 29, BUN 42, creatinine 1.6, blood sugar 230. Wound culture from the right foot positive for Gram-positive cocci and chronic bacterium. Blood culture positive . ASSESSMENT: 1. Right heel stage II ulcer growing Gram-positive cocci and chronic bacterium. MRI of the left foot negative for osteomyelitis. 2. Non-insulin dependent diabetes. 3. Hypertension. 4. Hyperlipidemia. 5. Hypothyroidism. 6. Status post left middle toe amputation. PLAN: Currently, the patient is on Azactam and intermittent vancomycin. Blood cultures being repeated since blood culture one bottle is positive. Local wound care is being done by Podiatry team. The patient is on Azactam and daptomycin. Blood sugar is being monitored. Request for TCU evaluation. If accepted, will be transferred today to complete a course of antibiotic and wound care. Liam Fernandez MD
[2018-05-06] MEDS: Levothyroxine 50 MCG TAB PO SCH (06:18)
[2018-05-06] MEDS: Aztreonam 1 Gm in NS 100mL 100 ML IVPB SCH ×3 (06:18→21:38)
[2018-05-06] MEDS: Insulin Lispro (humaLOG) MEDIUM Coverage SC SCH ×4 (08:11→21:40)
[2018-05-06] MEDS: GlipiZIDE 5 mg SR Tab PO SCH ×2 (08:13→17:03)
--- NOTE | 2018-05-06 08:42 | CP.PCM.PN ---
<IainConnie - Last Filed: 05/06/18 08:45> Subjective - Date & Time of Evaluation Date of Evaluation: 05/06/18 Time of Evaluation: 08:41 - Subjective Subjective: Podiatry Consult note: Dr. Owusu 82F patient seen and evaluated this AM. Patient resting comfortably and in NAD. Denies any acute events overnight. Denies nausea/vomiting/fever/shortness of breath/chest pain. Objective - Vital Signs/Intake and Output Vital Signs (last 24 hours): Temp Pulse Resp BP Pulse Ox 98.3 F 75 20 106/45 L 94 L 05/05/18 19:28 05/05/18 19:28 05/05/18 19:28 05/05/18 19:28 05/05/18 19:28 Intake and Output: 05/06/18 05/06/18 06:59 18:59 Intake Total 1380 200 Output Total 900 Balance 480 200 - Medications Medications: Current Medications Acetaminophen (Tylenol 325mg Tab) 650 mg PO Q6H PRN PRN Reason: Pain, moderate (4-7) Aspirin (Ecotrin) 81 mg PO DAILY [facility] Last Admin: 05/05/18 10:09 Dose: 81 mg Atorvastatin Calcium (Lipitor) 20 mg PO HS [facility] Last Admin: 05/05/18 21:18 Dose: 20 mg Calcium/Vitamin D (Oscal-D 250 Mg-125 Units Tab) 2 tab PO DAILY [facility] Last Admin: 05/05/18 10:10 Dose: 2 tab Famotidine (Pepcid) 20 mg PO DAILY [facility] Last Admin: 05/05/18 10:10 Dose: 20 mg Ferrous Gluconate (Fergon) 324 mg PO TID [facility] Last Admin: 05/05/18 17:18 Dose: 324 mg Furosemide (Lasix) 40 mg IVP DAILY [facility] Last Admin: 05/05/18 10:06 Dose: 40 mg Glipizide (Glucotrol Xl) 5 mg PO ACBD [facility] Last Admin: 05/06/18 08:13 Dose: 5 mg Aztreonam (Azactam 1 Gm) 100 mls @ 100 mls/hr IVPB Q8 [facility]; Protocol Stop: 05/11/18 14:01 Last Admin: 05/06/18 06:18 Dose: 100 mls/hr Daptomycin 640 mg/ Sodium (Chloride) 100 mls @ 200 mls/hr IV DAILY [facility] Stop: 05/13/18 10:01 Insulin Detemir (Levemir) 23 unit SC Q12 [facility] Last Admin: 05/05/18 21:17 Dose: 23 units Insulin Human Lispro (Humalog Med) 0 units SC ACHS [facility]; Protocol Last Admin: 05/06/18 08:11 Dose: Not Given Levothyroxine Sodium (Synthroid) 50 mcg PO 0600 [facility] Last Admin: 05/06/18 06:18 Dose: 50 mcg Losartan Potassium (Cozaar) 25 mg PO DAILY [facility] Last Admin: 05/05/18 10:11 Dose: 25 mg Metoprolol Tartrate (Lopressor) 50 mg PO BID [facility] Last Admin: 05/05/18 17:17 Dose: 50 mg Multivitamins/Minerals (Therapeutic-M Tab) 1 tab PO DAILY [facility] Last Admin: 05/05/18 10:08 Dose: 1 tab Mupirocin (Bactroban Ointment) 0 gm TOP BID [facility] Last Admin: 05/05/18 17:18 Dose: 1 applic Nystatin (Nystop Topical Powder) 0 gm TOP BID [facility] Last Admin: 05/05/18 17:19 Dose: 1 applic Potassium Chloride (Klor-Con 10) 10 meq PO DAILY [facility] Last Admin: 05/05/18 10:09 Dose: 10 meq Psyllium Hydrophilic Mucilloid (Hydrocil Instant) 1 pkt PO BID [facility] Quetiapine Fumarate (Seroquel) 25 mg PO HS [facility]; Protocol Last Admin: 05/05/18 21:19 Dose: 25 mg - Labs Labs: 05/05/18 06:15 05/05/18 06:15 PT 13.0 SECONDS (9.4-12.5) H 05/03/18 18:36 INR 1.17 05/03/18 18:36 APTT 36.6 Seconds (26.9-38.3) 05/03/18 18:36 - Constitutional Appears: Non-toxic, No Acute Distress - Head Exam Head Exam: ATRAUMATIC, NORMOCEPHALIC - Extremities Exam Additional comments: LE focused exam Vasc: DP/PT pulses faintly palpable 1/4 b/l, Skin temperature warm to warm from proximal to distal, CFT < 3 seconds to all digits b/l, Moderate edema diffusely Neuro: Gross and protective sensation diminished b/l Derm: Right heel - 2.5 cm x 2.5 cm x 0.3 cm posterior right heel ulceration with mild periwound erythema, wound bed 80% angry granular tissue with 20% necrotic central patch, minimal serous drainage, no malodor, no purulence, negative probe to bone, no tracking/tunneling/undermining noted. Ortho: Mild tenderness to palpation of ulceration site. MMT 4/5 in all major muscle groups - Neurological Exam Neurological Exam: Alert, Awake, Oriented x3 - Psychiatric Exam Psychiatric exam: Normal Affect, Normal Mood - Skin Skin Exam: Warm Assessment and Plan - Assessment and Plan (Free Text) Assessment: 81F with right heel ulceration, admitted for IV abx Plan: Patient seen and evaluated with attending Dr. Umer ARAYA, WBC 6.6 R heel X-ray: no signs of osteomyelitis noted R heel MRI: no acute osteomyelitis noted LE arterial duplex (10/25): Normal MCKENNA/PVR at rest Blood culture; gram + cocci in clusters Wound Cultures: Gram Positive Cocci, Corneybacterium species Local wound care: R heel dressed with bactroban, adaptic, maxorb, DSD, light OLGA LIDIA; L heel dressed with optifoam Multipodus boots to be worn at all times ID consult; per ID continue intermittent Vancomycin IV and Azactam and repeat blood cx, follow final wound cx results Will continue to follow while in house <Robby Owusu - Last Filed: 05/08/18 09:05> Objective - Vital Signs/Intake and Output Vital Signs (last 24 hours): Temp Pulse Resp BP Pulse Ox 98 F 65 19 109/61 98 05/08/18 08:19 05/08/18 08:19 05/08/18 08:19 05/08/18 08:19 05/08/18 08:19 Intake and Output: 05/08/18 05/08/18 06:59 18:59 Intake Total 180 Balance 180 - Medications Medications: Current Medications Acetaminophen (Tylenol 325mg Tab) 650 mg PO Q6H PRN PRN Reason: Pain, moderate (4-7) Last Admin: 05/06/18 21:42 Dose: 650 mg Aspirin (Ecotrin) 81 mg PO DAILY [facility] Last Admin: 05/07/18 09:59 Dose: 81 mg Atorvastatin Calcium (Lipitor) 20 mg PO HS [facility] Last Admin: 05/07/18 22:05 Dose: 20 mg Calcium/Vitamin D (Oscal-D 250 Mg-125 Units Tab) 2 tab PO DAILY [facility] Last Admin: 05/07/18 09:59 Dose: 2 tab Diphenhydramine HCl (Benadryl) 25 mg PO Q6 PRN PRN Reason: Itching / Pruritus Last Admin: 05/07/18 20:17 Dose: 25 mg Enoxaparin Sodium (Lovenox) 30 mg SC DAILY [facility]; Protocol Last Admin: 05/07/18 16:41 Dose: 30 mg Famotidine (Pepcid) 20 mg PO DAILY [facility] Last Admin: 05/07/18 09:59 Dose: 20 mg Ferrous Gluconate (Fergon) 324 mg PO TID [facility] Last Admin: 05/07/18 18:32 Dose: 324 mg Furosemide (Lasix) 40 mg IVP DAILY [facility] Last Admin: 05/07/18 10:00 Dose: 40 mg Glipizide (Glucotrol Xl) 5 mg PO ACBD [facility] Last Admin: 05/08/18 08:31 Dose: 5 mg Daptomycin 640 mg/ Sodium (Chloride) 100 mls @ 200 mls/hr IV DAILY [facility] Stop: 05/13/18 10:01 Last Admin: 05/07/18 10:00 Dose: 200 mls/hr Insulin Detemir (Levemir) 23 unit SC Q12 [facility] Last Admin: 05/07/18 22:05 Dose: 23 units Insulin Human Lispro (Humalog Med) 0 units SC ACHS [facility]; Protocol Last Admin: 05/08/18 08:31 Dose: 1 unit Levothyroxine Sodium (Synthroid) 50 mcg PO 0600 [facility] Last Admin: 05/08/18 06:27 Dose: 50 mcg Losartan Potassium (Cozaar) 25 mg PO DAILY [facility] Last Admin: 05/07/18 10:03 Dose: Not Given Metoprolol Tartrate (Lopressor) 50 mg PO BID [facility] Last Admin: 05/07/18 18:33 Dose: 50 mg Multivitamins/Minerals (Therapeutic-M Tab) 1 tab PO DAILY [facility] Last Admin: 05/07/18 09:59 Dose: 1 tab Mupirocin (Bactroban Ointment) 0 gm TOP BID [facility] Last Admin: 05/07/18 10:03 Dose: 1 applic Nystatin (Nystop Topical Powder) 0 gm TOP BID [facility] Last Admin: 05/07/18 18:33 Dose: 1 applic Potassium Chloride (Klor-Con 10) 10 meq PO DAILY [facility] Last Admin: 05/07/18 10:00 Dose: 10 meq Psyllium Hydrophilic Mucilloid (Hydrocil Instant) 1 pkt PO BID [facility] Last Admin: 05/07/18 18:37 Dose: Not Given Quetiapine Fumarate (Seroquel) 25 mg PO HS [facility]; Protocol Last Admin: 05/07/18 22:06 Dose: 25 mg - Labs Labs: 05/05/18 06:15 05/05/18 06:15 PT 13.0 SECONDS (9.4-12.5) H 05/03/18 18:36 INR 1.17 05/03/18 18:36 APTT 36.6 Seconds (26.9-38.3) 05/03/18 18:36 Attending/Attestation - Attestation I have personally seen and examined this patient.: Yes I have fully participated in the care of the patient.: Yes I have reviewed all pertinent clinical information, including history, physical exam and plan: Yes
[2018-05-06] MEDS: Calcium-Vit D 250 mg-125 Units Tab UD PO SCH (09:45)
[2018-05-06] MEDS: Multivitamin With Minerals Tab PO SCH (09:45)
[2018-05-06] MEDS: Potassium Chloride 10 mEq ER Tab PO SCH (09:46)
[2018-05-06] MEDS: Psyllium Packet PO SCH ×2 (09:46→18:01)
[2018-05-06] MEDS: Insulin Detemir 100 units/ml Vial (Levemir) SC SCH ×2 (09:46→21:39)
[2018-05-06] MEDS: Mupirocin 2% Ointment 15 GM TUBE TOP SCH ×2 (09:48→18:01)
[2018-05-06] MEDS: Nystatin 100,000 Units/gm Topical Pow(15 gm) TOP SCH ×2 (09:49→18:00)
[2018-05-06] MEDS ORDERED: DAPTOmycin 500 mg Inj (Cubicin) IV SCH (10:00)
--- NOTE | 2018-05-06 14:10 | CP.PCM.PN ---
Subjective - Date & Time of Evaluation Date of Evaluation: 05/06/18 Time of Evaluation: 10:45 - Subjective Subjective: Comfortable, no pain in the foot, no fevers, no diarrhea, no nausea. Objective - Vital Signs/Intake and Output Vital Signs (last 24 hours): Temp Pulse Resp BP Pulse Ox 98 F 66 19 109/49 L 95 05/05/18 08:15 05/05/18 10:11 05/05/18 08:15 05/05/18 10:11 05/05/18 08:15 Intake and Output: 05/05/18 05/05/18 06:59 18:59 Intake Total 200 Balance 200 - Medications Medications: Current Medications Aspirin (Ecotrin) 81 mg PO DAILY [facility] Last Admin: 05/05/18 10:09 Dose: 81 mg Atorvastatin Calcium (Lipitor) 20 mg PO HS [facility] Last Admin: 05/04/18 22:17 Dose: 20 mg Calcium/Vitamin D (Oscal-D 250 Mg-125 Units Tab) 2 tab PO DAILY [facility] Last Admin: 05/05/18 10:10 Dose: 2 tab Daptomycin (Cubicin) 640 mg 6 mg/kg (640 mg) IV Q24H [facility]; Protocol Stop: 05/13/18 10:01 Famotidine (Pepcid) 20 mg PO DAILY [facility] Last Admin: 05/05/18 10:10 Dose: 20 mg Ferrous Gluconate (Fergon) 324 mg PO TID [facility] Last Admin: 05/05/18 14:34 Dose: 324 mg Furosemide (Lasix) 40 mg IVP DAILY [facility] Last Admin: 05/05/18 10:06 Dose: 40 mg Glipizide (Glucotrol Xl) 5 mg PO ACBD [facility] Last Admin: 05/05/18 08:01 Dose: 5 mg Aztreonam (Azactam 1 Gm) 100 mls @ 100 mls/hr IVPB Q8 [facility]; Protocol Stop: 05/11/18 14:01 Last Admin: 05/05/18 14:33 Dose: 100 mls/hr Insulin Detemir (Levemir) 23 unit SC Q12 [facility] Last Admin: 05/05/18 10:04 Dose: 23 units Insulin Human Lispro (Humalog Med) 0 units SC ACHS [facility]; Protocol Last Admin: 05/05/18 11:41 Dose: Not Given Levothyroxine Sodium (Synthroid) 50 mcg PO 0600 [facility] Last Admin: 05/05/18 06:59 Dose: 50 mcg Losartan Potassium (Cozaar) 25 mg PO DAILY [facility] Last Admin: 05/05/18 10:11 Dose: 25 mg Metoprolol Tartrate (Lopressor) 50 mg PO BID [facility] Last Admin: 05/05/18 10:09 Dose: 50 mg Multivitamins/Minerals (Therapeutic-M Tab) 1 tab PO DAILY [facility] Last Admin: 05/05/18 10:08 Dose: 1 tab Mupirocin (Bactroban Ointment) 0 gm TOP BID [facility] Last Admin: 05/05/18 10:13 Dose: 1 applic Nystatin (Nystop Topical Powder) 0 gm TOP BID [facility] Last Admin: 05/05/18 10:13 Dose: 1 applic Potassium Chloride (Klor-Con 10) 10 meq PO DAILY [facility] Last Admin: 05/05/18 10:09 Dose: 10 meq Quetiapine Fumarate (Seroquel) 25 mg PO [facility]; Protocol Last Admin: 05/04/18 22:18 Dose: 25 mg - Labs Labs: 05/05/18 06:15 05/05/18 06:15 PT 13.0 SECONDS (9.4-12.5) H 05/03/18 18:36 INR 1.17 05/03/18 18:36 APTT 36.6 Seconds (26.9-38.3) 05/03/18 18:36 - Constitutional Appears: Chronically Ill - Head Exam Head Exam: NORMAL INSPECTION - Neck Exam Neck Exam: absent: Meningismus - Respiratory Exam Respiratory Exam: Decreased Breath Sounds - Cardiovascular Exam Cardiovascular Exam: +S1, +S2 - GI/Abdominal Exam GI & Abdominal Exam: Soft. 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 Linezolid) history of hypoglycemia, R/O drug-induced (i.e. Levaquin) history of right heel ulcer, infected with MRSA with no evidence of osteomyelitis on MRI - S/P treatment with antibiotics peripheral arterial disease history of left heel infected ulcer with cellulitis without evidence of osteomyelitis on MRI history of 2nd right toe and metatarsal head osteomyelitis S/P surgery chronic renal failure obesity with BMI 38 osteoarthritis HTN DM hypothyroidism S/P left toe amputation S/P right hip surgery Plan we have switched to Daptomycin and will continue Azactam and follow up repeat blood cx,; will get 2D echo as well Podiatry following and discussed the case with them will continue to monitor clinically
--- NOTE | 2018-05-06 14:55 | PN ---
DATE: 05/06/2018 SUBJECTIVE: The patient is an 82-year-old female, seen and examined, lying in bed, seems to be comfortable. No nausea, vomiting, or diarrhea. Eating and tolerating well. PHYSICAL EXAMINATION: VITAL SIGNS: She is afebrile, pulse 75, respirations 20, blood pressure 100/56. LUNGS: Bilateral fair airflow. No rhonchi or crackles. HEART: S1 and S2 audible. ABDOMEN: Soft. Obese, nontender. No rebound. No guarding. NEUROLOGICAL: The patient is awake, alert, and oriented. Able to communicate. LABORATORY DATA: Blood sugar this morning is 107. ASSESSMENT: 1. Right heel ulcer. 2. Non-insulin dependent diabetes. 3. Hypertension. 4. Hyperlipidemia. 5. Peripheral vascular disease. 6. Hypothyroidism. PLAN: The patient is currently on Azactam. She is on daptomycin. Blood sugar is being monitored. Continue current regimen of insulin. Monitor her blood sugar. Surgery team is watching the wound. We will reevaluate the patient in the a.m. The patient is re-presented to TCU. Once accepted, she can be transferred to TCU. Liam Fernandez MD
[2018-05-07] MEDS: Aztreonam 1 Gm in NS 100mL 100 ML IVPB SCH (06:26)
[2018-05-07] MEDS: Levothyroxine 50 MCG TAB PO SCH (06:27)
[2018-05-07] MEDS: GlipiZIDE 5 mg SR Tab PO SCH ×2 (07:53→16:41)
[2018-05-07] MEDS: Insulin Lispro (humaLOG) MEDIUM Coverage SC SCH ×4 (07:53→22:00)
--- NOTE | 2018-05-07 09:33 | CP.PCM.PN ---
Subjective - Date & Time of Evaluation Date of Evaluation: 05/07/18 Time of Evaluation: 09:15 - Subjective Subjective: No increased pain in the foot, had some itching in the right arm after insulin injection, no diarrhea, no nausea, not in distress. Objective - Vital Signs/Intake and Output Vital Signs (last 24 hours): Temp Pulse Resp BP Pulse Ox 97.7 F 75 20 100/56 L 96 05/06/18 06:00 05/06/18 09:49 05/06/18 06:00 05/06/18 09:49 05/06/18 06:00 Intake and Output: 05/06/18 05/06/18 06:59 18:59 Intake Total 1380 200 Output Total 900 Balance 480 200 - Medications Medications: Current Medications Acetaminophen (Tylenol 325mg Tab) 650 mg PO Q6H PRN PRN Reason: Pain, moderate (4-7) Aspirin (Ecotrin) 81 mg PO DAILY [facility] Last Admin: 05/06/18 09:45 Dose: 81 mg Atorvastatin Calcium (Lipitor) 20 mg PO HS [facility] Last Admin: 05/05/18 21:18 Dose: 20 mg Calcium/Vitamin D (Oscal-D 250 Mg-125 Units Tab) 2 tab PO DAILY [facility] Last Admin: 05/06/18 09:45 Dose: 2 tab Famotidine (Pepcid) 20 mg PO DAILY [facility] Last Admin: 05/06/18 09:45 Dose: 20 mg Ferrous Gluconate (Fergon) 324 mg PO TID [facility] Last Admin: 05/06/18 13:14 Dose: 324 mg Furosemide (Lasix) 40 mg IVP DAILY [facility] Last Admin: 05/06/18 09:48 Dose: 40 mg Glipizide (Glucotrol Xl) 5 mg PO ACBD [facility] Last Admin: 05/06/18 08:13 Dose: 5 mg Aztreonam (Azactam 1 Gm) 100 mls @ 100 mls/hr IVPB Q8 [facility]; Protocol Stop: 05/11/18 14:01 Last Admin: 05/06/18 13:14 Dose: 100 mls/hr Daptomycin 640 mg/ Sodium (Chloride) 100 mls @ 200 mls/hr IV DAILY [facility] Stop: 05/13/18 10:01 Last Admin: 05/06/18 09:47 Dose: 200 mls/hr Insulin Detemir (Levemir) 23 unit SC Q12 [facility] Last Admin: 05/06/18 09:46 Dose: 23 units Insulin Human Lispro (Humalog Med) 0 units SC [facility]; Protocol Last Admin: 05/06/18 13:10 Dose: 1 unit Levothyroxine Sodium (Synthroid) 50 mcg PO 0600 [facility] Last Admin: 05/06/18 06:18 Dose: 50 mcg Losartan Potassium (Cozaar) 25 mg PO DAILY [facility] Last Admin: 05/06/18 09:47 Dose: Not Given Metoprolol Tartrate (Lopressor) 50 mg PO BID [facility] Last Admin: 05/06/18 09:49 Dose: Not Given Multivitamins/Minerals (Therapeutic-M Tab) 1 tab PO DAILY [facility] Last Admin: 05/06/18 09:45 Dose: 1 tab Mupirocin (Bactroban Ointment) 0 gm TOP BID [facility] Last Admin: 05/06/18 09:48 Dose: 1 applic Nystatin (Nystop Topical Powder) 0 gm TOP BID [facility] Last Admin: 05/06/18 09:49 Dose: 1 applic Potassium Chloride (Klor-Con 10) 10 meq PO DAILY [facility] Last Admin: 05/06/18 09:46 Dose: 10 meq Psyllium Hydrophilic Mucilloid (Hydrocil Instant) 1 pkt PO BID [facility] Last Admin: 05/06/18 09:46 Dose: 1 pkt Quetiapine Fumarate (Seroquel) 25 mg PO HS [facility]; Protocol Last Admin: 05/05/18 21:19 Dose: 25 mg - Labs Labs: 05/05/18 06:15 05/05/18 06:15 PT 13.0 SECONDS (9.4-12.5) H 05/03/18 18:36 INR 1.17 05/03/18 18:36 APTT 36.6 Seconds (26.9-38.3) 05/03/18 18:36 - Constitutional Appears: No Acute Distress, Chronically Ill - Head Exam Head Exam: NORMAL INSPECTION - Neck Exam Neck Exam: absent: Meningismus - Respiratory Exam Respiratory Exam: Decreased Breath Sounds - Cardiovascular Exam Cardiovascular Exam: +S1, +S2 - GI/Abdominal Exam GI & Abdominal Exam: Soft. 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 Linezolid) history of hypoglycemia, R/O drug-induced (i.e. Levaquin) history of right heel ulcer, infected with MRSA with no evidence of osteomyelitis on MRI - S/P treatment with antibiotics peripheral arterial disease history of left heel infected ulcer with cellulitis without evidence of o steomyelitis on MRI history of 2nd right toe and metatarsal head osteomyelitis S/P surgery chronic renal failure obesity with BMI 38 osteoarthritis HTN DM hypothyroidism S/P left toe amputation S/P right hip surgery Plan continue Daptomycin and will discontinue Azactam; repeat blood cx are negative so far; follow up 2D echo as well; follow up final identification of the bacteria in the blood Podiatry following and we discussed the case with them previously will continue to monitor clinically
[2018-05-07] MEDS: Calcium-Vit D 250 mg-125 Units Tab UD PO SCH (09:59)
[2018-05-07] MEDS: Multivitamin With Minerals Tab PO SCH (09:59)
[2018-05-07] MEDS: Potassium Chloride 10 mEq ER Tab PO SCH (10:00)
[2018-05-07] MEDS: Psyllium Packet PO SCH ×3 (10:00→18:37)
[2018-05-07] MEDS: Insulin Detemir 100 units/ml Vial (Levemir) SC SCH ×2 (10:01→22:05)
[2018-05-07] MEDS: Nystatin 100,000 Units/gm Topical Pow(15 gm) TOP SCH ×2 (10:02→18:33)
[2018-05-07] MEDS: Mupirocin 2% Ointment 15 GM TUBE TOP SCH (10:03)
--- NOTE | 2018-05-07 11:55 | CP.PCM.PN ---
<Connie Timmons - Last Filed: 05/07/18 11:57> Subjective - Date & Time of Evaluation Date of Evaluation: 05/07/18 Time of Evaluation: 11:55 - Subjective Subjective: Podiatry Consult note: Dr. Owuus 82F patient seen and evaluated for R heel ulceration. Patient resting comfortably in bedside chair and in NAD. Denies nausea/vomiting/fever/shortness of breath/chest pain. Objective - Vital Signs/Intake and Output Vital Signs (last 24 hours): Temp Pulse Resp BP Pulse Ox 97.7 F 68 20 108/62 98 05/07/18 06:00 05/07/18 06:00 05/07/18 06:00 05/07/18 10:00 05/07/18 06:00 Intake and Output: 05/07/18 05/07/18 06:59 18:59 Intake Total 200 Balance 200 - Medications Medications: Current Medications Acetaminophen (Tylenol 325mg Tab) 650 mg PO Q6H PRN PRN Reason: Pain, moderate (4-7) Last Admin: 05/06/18 21:42 Dose: 650 mg Aspirin (Ecotrin) 81 mg PO DAILY [facility] Last Admin: 05/07/18 09:59 Dose: 81 mg Atorvastatin Calcium (Lipitor) 20 mg PO HS [facility] Last Admin: 05/06/18 21:39 Dose: 20 mg Calcium/Vitamin D (Oscal-D 250 Mg-125 Units Tab) 2 tab PO DAILY [facility] Last Admin: 05/07/18 09:59 Dose: 2 tab Diphenhydramine HCl (Benadryl) 25 mg PO Q6 PRN PRN Reason: Itching / Pruritus Famotidine (Pepcid) 20 mg PO DAILY [facility] Last Admin: 05/07/18 09:59 Dose: 20 mg Ferrous Gluconate (Fergon) 324 mg PO TID [facility] Last Admin: 05/07/18 09:59 Dose: 324 mg Furosemide (Lasix) 40 mg IVP DAILY [facility] Last Admin: 05/07/18 10:00 Dose: 40 mg Glipizide (Glucotrol Xl) 5 mg PO ACBD [facility] Last Admin: 05/07/18 07:53 Dose: Not Given Daptomycin 640 mg/ Sodium (Chloride) 100 mls @ 200 mls/hr IV DAILY [facility] Stop: 05/13/18 10:01 Last Admin: 05/07/18 10:00 Dose: 200 mls/hr Insulin Detemir (Levemir) 23 unit SC Q12 [facility] Last Admin: 05/07/18 10:01 Dose: 23 units Insulin Human Lispro (Humalog Med) 0 units SC ACHS [facility]; Protocol Last Admin: 05/07/18 07:53 Dose: Not Given Levothyroxine Sodium (Synthroid) 50 mcg PO 0600 [facility] Last Admin: 05/07/18 06:27 Dose: 50 mcg Losartan Potassium (Cozaar) 25 mg PO DAILY [facility] Last Admin: 05/07/18 10:03 Dose: Not Given Metoprolol Tartrate (Lopressor) 50 mg PO BID [facility] Last Admin: 05/07/18 10:02 Dose: Not Given Multivitamins/Minerals (Therapeutic-M Tab) 1 tab PO DAILY [facility] Last Admin: 05/07/18 09:59 Dose: 1 tab Mupirocin (Bactroban Ointment) 0 gm TOP BID [facility] Last Admin: 05/07/18 10:03 Dose: 1 applic Nystatin (Nystop Topical Powder) 0 gm TOP BID [facility] Last Admin: 05/07/18 10:02 Dose: 1 applic Potassium Chloride (Klor-Con 10) 10 meq PO DAILY [facility] Last Admin: 05/07/18 10:00 Dose: 10 meq Psyllium Hydrophilic Mucilloid (Hydrocil Instant) 1 pkt PO BID [facility] Last Admin: 05/07/18 10:00 Dose: 1 pkt Quetiapine Fumarate (Seroquel) 25 mg PO HS [facility]; Protocol Last Admin: 05/06/18 21:39 Dose: 25 mg - Labs Labs: 05/05/18 06:15 05/05/18 06:15 PT 13.0 SECONDS (9.4-12.5) H 05/03/18 18:36 INR 1.17 05/03/18 18:36 APTT 36.6 Seconds (26.9-38.3) 05/03/18 18:36 - Constitutional Appears: Non-toxic, No Acute Distress - Head Exam Head Exam: ATRAUMATIC, NORMOCEPHALIC - Back Exam Additional comments: LE focused exam Vasc: DP/PT pulses faintly palpable 1/4 b/l, Skin temperature warm to warm from proximal to distal, CFT < 3 seconds to all digits b/l, Moderate edema diffusely Neuro: Gross and protective sensation diminished b/l Derm: Right heel - 2.0 cm x 2.0 cm x 0.3 cm posterior right heel ulceration with mild periwound erythema, wound bed 80% angry granular tissue with 20% necrotic central patch, minimal serous drainage, no malodor, no purulence, negative probe to bone, no tracking/tunneling/undermining noted. Ortho: Mild tenderness to palpation of ulceration site. MMT 4/5 in all major muscle groups - Neurological Exam Neurological Exam: Alert, Awake, Oriented x3 - Psychiatric Exam Psychiatric exam: Normal Affect, Normal Mood Assessment and Plan - Assessment and Plan (Free Text) Assessment: 81F with right heel ulceration, admitted for IV abx Plan: Patient seen and evaluated with attending Dr. Umer ARAYA R heel X-ray: no signs of osteomyelitis noted R heel MRI: no acute osteomyelitis noted LE arterial duplex (10/25): Normal MCKENNA/PVR at rest Blood culture; gram + cocci in clusters Wound Cultures: MRSA, Corneybacterium species Local wound care: R heel dressed with bactroban, adaptic, maxorb, DSD, light OLGA LIDIA; L heel dressed with optifoam Multipodus boots to be worn at all times ID consult; per ID continue Daptomycin and will discontinue Azactam; repeat blood cx are negative so far; follow up 2D echo as well; follow up final identification of the bacteria in the blood Will continue to follow while in house <Robby Owusu - Last Filed: 05/08/18 09:03> Objective - Vital Signs/Intake and Output Vital Signs (last 24 hours): Temp Pulse Resp BP Pulse Ox 98 F 65 19 109/61 98 05/08/18 08:19 05/08/18 08:19 05/08/18 08:19 05/08/18 08:19 05/08/18 08:19 Intake and Output: 05/08/18 05/08/18 06:59 18:59 Intake Total 180 Balance 180 - Medications Medications: Current Medications Acetaminophen (Tylenol 325mg Tab) 650 mg PO Q6H PRN PRN Reason: Pain, moderate (4-7) Last Admin: 05/06/18 21:42 Dose: 650 mg Aspirin (Ecotrin) 81 mg PO DAILY [facility] Last Admin: 05/07/18 09:59 Dose: 81 mg Atorvastatin Calcium (Lipitor) 20 mg PO HS [facility] Last Admin: 05/07/18 22:05 Dose: 20 mg Calcium/Vitamin D (Oscal-D 250 Mg-125 Units Tab) 2 tab PO DAILY [facility] Last Admin: 05/07/18 09:59 Dose: 2 tab Diphenhydramine HCl (Benadryl) 25 mg PO Q6 PRN PRN Reason: Itching / Pruritus Last Admin: 05/07/18 20:17 Dose: 25 mg Enoxaparin Sodium (Lovenox) 30 mg SC DAILY [facility]; Protocol Last Admin: 05/07/18 16:41 Dose: 30 mg Famotidine (Pepcid) 20 mg PO DAILY [facility] Last Admin: 05/07/18 09:59 Dose: 20 mg Ferrous Gluconate (Fergon) 324 mg PO TID [facility] Last Admin: 05/07/18 18:32 Dose: 324 mg Furosemide (Lasix) 40 mg IVP DAILY [facility] Last Admin: 05/07/18 10:00 Dose: 40 mg Glipizide (Glucotrol Xl) 5 mg PO ACBD [facility] Last Admin: 05/08/18 08:31 Dose: 5 mg Daptomycin 640 mg/ Sodium (Chloride) 100 mls @ 200 mls/hr IV DAILY [facility] Stop: 05/13/18 10:01 Last Admin: 05/07/18 10:00 Dose: 200 mls/hr Insulin Detemir (Levemir) 23 unit SC Q12 [facility] Last Admin: 05/07/18 22:05 Dose: 23 units Insulin Human Lispro (Humalog Med) 0 units SC ACHS [facility]; Protocol Last Admin: 05/08/18 08:31 Dose: 1 unit Levothyroxine Sodium (Synthroid) 50 mcg PO 0600 [facility] Last Admin: 05/08/18 06:27 Dose: 50 mcg Losartan Potassium (Cozaar) 25 mg PO DAILY [facility] Last Admin: 05/07/18 10:03 Dose: Not Given Metoprolol Tartrate (Lopressor) 50 mg PO BID [facility] Last Admin: 05/07/18 18:33 Dose: 50 mg Multivitamins/Minerals (Therapeutic-M Tab) 1 tab PO DAILY [facility] Last Admin: 05/07/18 09:59 Dose: 1 tab Mupirocin (Bactroban Ointment) 0 gm TOP BID [facility] Last Admin: 05/07/18 10:03 Dose: 1 applic Nystatin (Nystop Topical Powder) 0 gm TOP BID [facility] Last Admin: 05/07/18 18:33 Dose: 1 applic Potassium Chloride (Klor-Con 10) 10 meq PO DAILY [facility] Last Admin: 05/07/18 10:00 Dose: 10 meq Psyllium Hydrophilic Mucilloid (Hydrocil Instant) 1 pkt PO BID [facility] Last Admin: 05/07/18 18:37 Dose: Not Given Quetiapine Fumarate (Seroquel) 25 mg PO HS [facility]; Protocol Last Admin: 05/07/18 22:06 Dose: 25 mg - Labs Labs: 05/05/18 06:15 05/05/18 06:15 PT 13.0 SECONDS (9.4-12.5) H 05/03/18 18:36 INR 1.17 05/03/18 18:36 APTT 36.6 Seconds (26.9-38.3) 05/03/18 18:36 Attending/Attestation - Attestation I have personally seen and examined this patient.: Yes I have fully participated in the care of the patient.: Yes I have reviewed all pertinent clinical information, including history, physical exam and plan: Yes
[2018-05-07] MEDS: Enoxaparin 30 mg Syringe SC SCH (16:41)
--- NOTE | 2018-05-07 19:53 | PN ---
DATE: 05/07/2018 SUBJECTIVE: The patient is an 82-year-old, seen and examined, lying in bed. Seems to be comfortable. Complains of getting itchiness here and there. Denies any fever. No chills. No nausea, vomiting, or diarrhea. Eating and tolerating. Otherwise offered no complaint. PHYSICAL EXAMINATION: VITAL SIGNS: She is afebrile. Pulse 60. Respirations 20. Blood pressure 108/62. LUNGS: Bilateral fair air flow. No rhonchi or crackles. HEART: S1 and S2 audible. ABDOMEN: Soft, obese, nontender. No rebound. No guarding. NEUROLOGIC: She is awake, alert, oriented. Communicative. EXTREMITIES: The right heel is in the dressing. Bilateral leg edema has improved. LABORATORY DATA: Blood sugar is 289. Foot wound culture positive for MRSA. Blood cultures are negative. MRI of the right heel is negative for osteomyelitis. ASSESSMENT: 1. Right heel ulcer. 2. Insulin-dependent diabetes. 3. Right heel methicillin-resistant Staphylococcus aureus wound infection. 4. Hyperlipidemia. 5. Hypertension. 6. Peripheral vascular disease. 7. Hypothyroidism. PLAN: Currently, the patient is on daptomycin. Will continue that. The patient is on MRSA isolation. Echocardiogram has been ordered to rule out endocarditis. We will start the patient on DVT prophylaxis. The patient is being evaluated for TCU, possible transfer to TCU in the a.. Liam Fernandez MD
[2018-05-08] MEDS: Levothyroxine 50 MCG TAB PO SCH (06:27)
[2018-05-08] MEDS: GlipiZIDE 5 mg SR Tab PO SCH ×2 (08:31→17:59)
[2018-05-08] MEDS: Insulin Lispro (humaLOG) MEDIUM Coverage SC SCH ×4 (08:31→22:51)
--- NOTE | 2018-05-08 09:52 | CP.PCM.PN ---
<Dipak Tenorio - Last Filed: 05/08/18 17:34> Subjective - Date & Time of Evaluation Date of Evaluation: 05/08/18 Time of Evaluation: 09:49 - Subjective Subjective: Podiatry Consult note: Dr. Owusu 82 y/o F patient seen and evaluated for R heel ulceration. Patient resting comfortably in bedside chair and in NAD. Denies nausea/vomiting/fever/shortness of breath/chest pain. She denies any overnight acute events. Objective - Vital Signs/Intake and Output Vital Signs (last 24 hours): Temp Pulse Resp BP Pulse Ox 98 F 65 19 109/61 98 05/08/18 08:19 05/08/18 08:19 05/08/18 08:19 05/08/18 08:19 05/08/18 08:19 Intake and Output: 05/08/18 05/08/18 06:59 18:59 Intake Total 180 Balance 180 - Medications Medications: Current Medications Acetaminophen (Tylenol 325mg Tab) 650 mg PO Q6H PRN PRN Reason: Pain, moderate (4-7) Last Admin: 05/06/18 21:42 Dose: 650 mg Aspirin (Ecotrin) 81 mg PO DAILY [facility] Last Admin: 05/07/18 09:59 Dose: 81 mg Atorvastatin Calcium (Lipitor) 20 mg PO HS [facility] Last Admin: 05/07/18 22:05 Dose: 20 mg Calcium/Vitamin D (Oscal-D 250 Mg-125 Units Tab) 2 tab PO DAILY [facility] Last Admin: 05/07/18 09:59 Dose: 2 tab Diphenhydramine HCl (Benadryl) 25 mg PO Q6 PRN PRN Reason: Itching / Pruritus Last Admin: 05/07/18 20:17 Dose: 25 mg Enoxaparin Sodium (Lovenox) 30 mg SC DAILY [facility]; Protocol Last Admin: 05/07/18 16:41 Dose: 30 mg Famotidine (Pepcid) 20 mg PO DAILY [facility] Last Admin: 05/07/18 09:59 Dose: 20 mg Ferrous Gluconate (Fergon) 324 mg PO TID [facility] Last Admin: 05/07/18 18:32 Dose: 324 mg Furosemide (Lasix) 40 mg IVP DAILY [facility] Last Admin: 05/07/18 10:00 Dose: 40 mg Glipizide (Glucotrol Xl) 5 mg PO ACBD [facility] Last Admin: 05/08/18 08:31 Dose: 5 mg Daptomycin 640 mg/ Sodium (Chloride) 100 mls @ 200 mls/hr IV DAILY [facility] Stop: 05/13/18 10:01 Last Admin: 05/07/18 10:00 Dose: 200 mls/hr Insulin Detemir (Levemir) 23 unit SC Q12 [facility] Last Admin: 05/07/18 22:05 Dose: 23 units Insulin Human Lispro (Humalog Med) 0 units SC ACHS [facility]; Protocol Last Admin: 05/08/18 08:31 Dose: 1 unit Levothyroxine Sodium (Synthroid) 50 mcg PO 0600 [facility] Last Admin: 05/08/18 06:27 Dose: 50 mcg Losartan Potassium (Cozaar) 25 mg PO DAILY [facility] Last Admin: 05/07/18 10:03 Dose: Not Given Metoprolol Tartrate (Lopressor) 50 mg PO BID [facility] Last Admin: 05/07/18 18:33 Dose: 50 mg Multivitamins/Minerals (Therapeutic-M Tab) 1 tab PO DAILY [facility] Last Admin: 05/07/18 09:59 Dose: 1 tab Mupirocin (Bactroban Ointment) 0 gm TOP BID [facility] Last Admin: 05/07/18 10:03 Dose: 1 applic Nystatin (Nystop Topical Powder) 0 gm TOP BID [facility] Last Admin: 05/07/18 18:33 Dose: 1 applic Potassium Chloride (Klor-Con 10) 10 meq PO DAILY [facility] Last Admin: 05/07/18 10:00 Dose: 10 meq Psyllium Hydrophilic Mucilloid (Hydrocil Instant) 1 pkt PO BID [facility] Last Admin: 05/07/18 18:37 Dose: Not Given Quetiapine Fumarate (Seroquel) 25 mg PO HS [facility]; Protocol Last Admin: 05/07/18 22:06 Dose: 25 mg - Labs Labs: 05/05/18 06:15 05/05/18 06:15 PT 13.0 SECONDS (9.4-12.5) H 05/03/18 18:36 INR 1.17 05/03/18 18:36 APTT 36.6 Seconds (26.9-38.3) 05/03/18 18:36 - Constitutional Appears: Well, Non-toxic, No Acute Distress - Head Exam Head Exam: ATRAUMATIC, NORMOCEPHALIC - Extremities Exam Additional comments: LE focused exam Vasc: DP/PT pulses faintly palpable 1/4 b/l, Skin temperature warm to warm from proximal to distal, Cap refill < 3 seconds to all digits b/l, Moderate edema diffusely. Neuro: Gross and protective sensation diminished b/l. Derm: Right heel - 2.0 cm x 2.0 cm x 0.3 cm posterior right heel ulceration with mild periwound erythema, wound bed 80% angry granular tissue with 20% necrotic central patch, minimal serous drainage, no malodor, no purulence, negative probe to bone, no tracking/tunneling/undermining noted. MSK: Mild tenderness to palpation of ulceration site. MMT 4/5 in all major muscle groups - Neurological Exam Neurological Exam: Alert, Awake, Oriented x3 - Psychiatric Exam Psychiatric exam: Normal Affect, Normal Mood Assessment and Plan - Assessment and Plan (Free Text) Assessment: 82 y/o F with right heel ulceration, admitted for IV abx. Plan: Patient seen and evaluated with attending Dr. Owusu Plan discussed with Dr. Owusu. Charts, labs and vitals reviewed; Afebrile, No leukocytosis R heel X-ray: no signs of osteomyelitis noted R heel MRI: no acute osteomyelitis noted LE arterial duplex (10/25): Normal MCKENNA/PVR at rest Blood culture; MRSA, Corynebacterium species. Wound Cultures: MRSA, Corneybacterium species Local wound care: R heel dressed with bactroban, adaptic, maxorb, DSD, light OLGA LIDIA; L heel dressed with optifoam Multipodus boots to be worn at all times ID consult; per ID continue Daptomycin and will discontinue Azactam; repeat blood cx are negative so far; follow up 2D echo as well; follow up final Blood Blood culture; No growth after 48 hours. Podiatry will continue to follow up the patient while in house <Robby Owusu - Last Filed: 05/09/18 09:28> Objective - Vital Signs/Intake and Output Vital Signs (last 24 hours): Temp Pulse Resp BP Pulse Ox 97.9 F 73 20 117/57 L 97 05/09/18 07:52 05/09/18 07:52 05/09/18 07:52 05/09/18 07:52 05/09/18 07:52 - Medications Medications: Current Medications Acetaminophen (Tylenol 325mg Tab) 650 mg PO Q6H PRN PRN Reason: Pain, moderate (4-7) Last Admin: 05/06/18 21:42 Dose: 650 mg Aspirin (Ecotrin) 81 mg PO DAILY [facility] Last Admin: 05/08/18 10:50 Dose: 81 mg Atorvastatin Calcium (Lipitor) 20 mg PO HS [facility] Last Admin: 05/08/18 22:51 Dose: 20 mg Calcium/Vitamin D (Oscal-D 250 Mg-125 Units Tab) 2 tab PO DAILY [facility] Last Admin: 05/08/18 10:50 Dose: 2 tab Diphenhydramine HCl (Benadryl) 25 mg PO Q6 PRN PRN Reason: Itching / Pruritus Last Admin: 05/07/18 20:17 Dose: 25 mg Enoxaparin Sodium (Lovenox) 30 mg SC DAILY [facility]; Protocol Last Admin: 05/08/18 10:51 Dose: 30 mg Famotidine (Pepcid) 20 mg PO DAILY [facility] Last Admin: 05/08/18 10:52 Dose: 20 mg Ferrous Gluconate (Fergon) 324 mg PO TID [facility] Last Admin: 05/08/18 17:59 Dose: 324 mg Furosemide (Lasix) 40 mg IVP DAILY [facility] Last Admin: 05/08/18 11:13 Dose: 40 mg Glipizide (Glucotrol Xl) 5 mg PO ACBD [facility] Last Admin: 05/09/18 08:34 Dose: 5 mg Linezolid (Zyvox 600mg/300ml D5w) 600 mg in 300 mls @ 200 mls/hr IVPB Q12 [facility]; Protocol Stop: 05/16/18 10:01 Insulin Detemir (Levemir) 23 unit SC Q12 [facility] Last Admin: 05/08/18 23:03 Dose: 23 units Insulin Human Lispro (Humalog Med) 0 units SC ACHS [facility]; Protocol Last Admin: 05/09/18 08:34 Dose: Not Given Levothyroxine Sodium (Synthroid) 50 mcg PO 0600 [facility] Last Admin: 05/09/18 07:21 Dose: 50 mcg Losartan Potassium (Cozaar) 25 mg PO DAILY [facility] Last Admin: 05/08/18 11:14 Dose: Not Given Metoprolol Tartrate (Lopressor) 50 mg PO BID [facility] Last Admin: 05/08/18 18:01 Dose: Not Given Multivitamins/Minerals (Therapeutic-M Tab) 1 tab PO DAILY [facility] Last Admin: 05/08/18 10:52 Dose: 1 tab Mupirocin (Bactroban Ointment) 0 gm TOP BID [facility] Last Admin: 05/08/18 17:59 Dose: Not Given Nystatin (Nystop Topical Powder) 0 gm TOP BID [facility] Last Admin: 05/08/18 18:01 Dose: 1 applic Potassium Chloride (Klor-Con 10) 10 meq PO DAILY [facility] Last Admin: 05/08/18 10:51 Dose: 10 meq Psyllium Hydrophilic Mucilloid (Hydrocil Instant) 1 pkt PO BID [facility] Last Admin: 05/08/18 18:00 Dose: 1 pkt Quetiapine Fumarate (Seroquel) 25 mg PO HS [facility]; Protocol Last Admin: 05/08/18 22:50 Dose: 25 mg - Labs Labs: 05/08/18 11:20 05/08/18 11:20 PT 13.0 SECONDS (9.4-12.5) H 05/03/18 18:36 INR 1.17 05/03/18 18:36 APTT 36.6 Seconds (26.9-38.3) 05/03/18 18:36 Attending/Attestation - Attestation I have personally seen and examined this patient.: Yes I have fully participated in the care of the patient.: Yes I have reviewed all pertinent clinical information, including history, physical exam and plan: Yes
[2018-05-08] MEDS: Mupirocin 2% Ointment 15 GM TUBE TOP SCH ×3 (10:49→17:59)
[2018-05-08] MEDS: Calcium-Vit D 250 mg-125 Units Tab UD PO SCH (10:50)
[2018-05-08] MEDS: Psyllium Packet PO SCH ×2 (10:50→18:00)
[2018-05-08] MEDS: Nystatin 100,000 Units/gm Topical Pow(15 gm) TOP SCH ×2 (10:51→18:01)
[2018-05-08] MEDS: Potassium Chloride 10 mEq ER Tab PO SCH (10:51)
[2018-05-08] MEDS: Insulin Detemir 100 units/ml Vial (Levemir) SC SCH ×2 (10:51→23:03)
[2018-05-08] MEDS: Enoxaparin 30 mg Syringe SC SCH (10:51)
[2018-05-08] MEDS: Multivitamin With Minerals Tab PO SCH (10:52)
[2018-05-08 11:34] LABS: BASO # 0.02 K/mm3 (0.0-2.0); BASO % 0.3 % (0.0-3.0); EOS # 0.3 (0.0-0.7); EOS % 3.9 % (1.5-5.0); HEMOGLOBIN 10.9 g/dL (12.0-16.0); LYMPH # 1.9 (1.2-3.4); LYMPH % 28.1 % (22.0-35.0); MEAN CELL VOLUME 95.5 fl (80.0-105.0); MEAN CORPUSCULAR HEMOGLOBIN 30.6 pg (25.0-35.0); MEAN CORPUSCULAR HGB CONC 32.1 g/dl (31.0-37.0); MEAN PLATELET VOLUME 11.7 fl (7.0-11.0); MONO # 0.5 (0.1-0.6); MONO % 7.5 % (1.0-6.0); RBC 3.56 10^6/uL (3.5-6.1); RED CELL DISTRIBUTION WIDTH 13.4 % (11.5-14.5); WHITE BLOOD COUNT 6.9 10^3/uL (4.5-11.0)
[2018-05-08 11:39] LABS: ALBUMIN 3.7 g/dL (3.0-4.8); CALCIUM 8.8 mg/dL (8.4-10.5)
--- NOTE | 2018-05-08 15:04 | PN ---
DATE: 05/08/2018 SUBJECTIVE: Patient is 82 years old, seen and examined lying in bed, seemed to be comfortable. Denies any nausea, vomiting. No fever or chills. Eating and tolerating as per priority team. Wound seems to be healing and granulating. PHYSICAL EXAMINATION: VITAL SIGNS: Afebrile. Pulse 68, respirations 19, blood pressure 113/49. HEART: S1, S2 audible. LUNGS: Bilateral fair airflow. No rhonchi or crackle. ABDOMEN: Soft, obese, nontender. No rebound, no guarding. EXTREMITIES: Both feet are in the heel pad. Bilateral legs +1 edema. NEUROLOGIC: Patient is awake, alert, oriented. Able to communicate. LABORATORY DATA: WBC 6.9, hemoglobin 10.9, hematocrit 34, platelet 182. Chemistry: Sodium 139, potassium 4.6, chloride 106, CO2 32, BUN 46, creatinine 1.1, blood sugar 126. MRI of the right foot is negative for osteomyelitis. Right foot growing methicillin resistant Staphylococcus aureus. Blood culture, one blood culture bottle positive for coag-negative Staph. ASSESSMENT: 1. Coag-negative Staphylococcus. 2. Right heel ulcer. 3. Insulin dependent diabetes. 4. Hypertension. 5. Hyperlipidemia. PLAN: Currently, patient is on Daptomycin and she is on DVT prophylaxis. Blood sugar is being monitored. Continue her on her usual medications. I spoke to Dr. Garcia. The plan is to follow up the sensitivity. If she is growing Staphylococcus aureus, then we have to continue daptomycin; if this is Staph-coag negative, then she can switch to p.o. Zyvox, so we are holding her transfer to TCU until identification is available. Continue wound care followup. Liam Fernandez MD
--- NOTE | 2018-05-08 15:22 | CP.PCM.PN ---
Subjective - Date & Time of Evaluation Date of Evaluation: 05/08/18 Time of Evaluation: 11:20 - Subjective Subjective: Comfortable, no fevers, not in distress. Objective - Vital Signs/Intake and Output Vital Signs (last 24 hours): Temp Pulse Resp BP Pulse Ox 98.2 F 89 15 125/64 98 05/06/18 14:00 05/06/18 18:00 05/06/18 14:00 05/06/18 18:00 05/06/18 14:00 Intake and Output: 05/07/18 05/07/18 06:59 18:59 Intake Total 200 Balance 200 - Medications Medications: Current Medications Acetaminophen (Tylenol 325mg Tab) 650 mg PO Q6H PRN PRN Reason: Pain, moderate (4-7) Last Admin: 05/06/18 21:42 Dose: 650 mg Aspirin (Ecotrin) 81 mg PO DAILY [facility] Last Admin: 05/06/18 09:45 Dose: 81 mg Atorvastatin Calcium (Lipitor) 20 mg PO HS [facility] Last Admin: 05/06/18 21:39 Dose: 20 mg Calcium/Vitamin D (Oscal-D 250 Mg-125 Units Tab) 2 tab PO DAILY [facility] Last Admin: 05/06/18 09:45 Dose: 2 tab Famotidine (Pepcid) 20 mg PO DAILY [facility] Last Admin: 05/06/18 09:45 Dose: 20 mg Ferrous Gluconate (Fergon) 324 mg PO TID [facility] Last Admin: 05/06/18 18:00 Dose: 324 mg Furosemide (Lasix) 40 mg IVP DAILY [facility] Last Admin: 05/06/18 09:48 Dose: 40 mg Glipizide (Glucotrol Xl) 5 mg PO ACBD [facility] Last Admin: 05/07/18 07:53 Dose: Not Given Aztreonam (Azactam 1 Gm) 100 mls @ 100 mls/hr IVPB Q8 [facility]; Protocol Stop: 05/11/18 14:01 Last Admin: 05/07/18 06:26 Dose: 100 mls/hr Daptomycin 640 mg/ Sodium (Chloride) 100 mls @ 200 mls/hr IV DAILY [facility] Stop: 05/13/18 10:01 Last Admin: 05/06/18 09:47 Dose: 200 mls/hr Insulin Detemir (Levemir) 23 unit SC Q12 [facility] Last Admin: 05/06/18 21:39 Dose: 23 units Insulin Human Lispro (Humalog Med) 0 units SC ACHS [facility]; Protocol Last Admin: 05/07/18 07:53 Dose: Not Given Levothyroxine Sodium (Synthroid) 50 mcg PO 0600 [facility] Last Admin: 05/07/18 06:27 Dose: 50 mcg Losartan Potassium (Cozaar) 25 mg PO DAILY [facility] Last Admin: 05/06/18 09:47 Dose: Not Given Metoprolol Tartrate (Lopressor) 50 mg PO BID [facility] Last Admin: 05/06/18 18:00 Dose: 50 mg Multivitamins/Minerals (Therapeutic-M Tab) 1 tab PO DAILY [facility] Last Admin: 05/06/18 09:45 Dose: 1 tab Mupirocin (Bactroban Ointment) 0 gm TOP BID [facility] Last Admin: 05/06/18 18:01 Dose: 1 applic Nystatin (Nystop Topical Powder) 0 gm TOP BID [facility] Last Admin: 05/06/18 18:00 Dose: 1 applic Potassium Chloride (Klor-Con 10) 10 meq PO DAILY [facility] Last Admin: 05/06/18 09:46 Dose: 10 meq Psyllium Hydrophilic Mucilloid (Hydrocil Instant) 1 pkt PO BID [facility] Last Admin: 05/06/18 18:01 Dose: Not Given Quetiapine Fumarate (Seroquel) 25 mg PO HS [facility]; Protocol Last Admin: 05/06/18 21:39 Dose: 25 mg - Labs Labs: 05/05/18 06:15 05/05/18 06:15 PT 13.0 SECONDS (9.4-12.5) H 05/03/18 18:36 INR 1.17 05/03/18 18:36 APTT 36.6 Seconds (26.9-38.3) 05/03/18 18:36 - Constitutional Appears: No Acute Distress, Chronically Ill - Head Exam Head Exam: NORMAL INSPECTION - Respiratory Exam Respiratory Exam: Decreased Breath Sounds - Cardiovascular Exam Cardiovascular Exam: +S1, +S2 - GI/Abdominal Exam GI & Abdominal Exam: Soft. 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 Linezolid) history of hypoglycemia, R/O drug-induced (i.e. Levaquin) history of right heel ulcer, infected with MRSA with no evidence of osteomyel itis on MRI - S/P treatment with antibiotics peripheral arterial disease history of left heel infected ulcer with cellulitis without evidence of osteomyelitis on MRI history of 2nd right toe and metatarsal head osteomyelitis S/P surgery chronic renal failure obesity with BMI 38 osteoarthritis HTN DM hypothyroidism S/P left toe amputation S/P right hip surgery Plan continue Daptomycin can switch to Zyvox to complete therapy; repeat blood cx are negative; follow up 2D echo as well Podiatry following and we discussed the case with them previously will continue to monitor clinically
--- NOTE | 2018-05-08 15:43 | CARD ---
APPROVED REPORT Date of service: 05/08/2018 EXAM: Two-dimensional and M-mode echocardiogram with Doppler and color Doppler. INDICATION Infection:Rule out subacute bacterial endocarditis 2D DIMENSIONS Left Atrium (2D)4.3 (1.6-4.0cm)IVSd1.5 (0.7-1.1cm) LVDd3.6 (3.9-5.9cm)PWd1.4 (0.7-1.1cm) LVDs2.4 (2.5-4.0cm)FS (%) 31.3 % LVEF (%)60.1 (>50%) M-Mode DIMENSIONS Aortic Root2.40 (2.2-3.7cm)Aortic Cusp Exc.1.20 (1.5-2.0cm) Aortic Valve AoV Peak Mrymdtol944.0cm/Parul Peak GR.6mmHg Mitral Valve MV E Hlrekajt274.0cm/sMV A Hmnxlzbo293.0cm/sE/A ratio0.9 TDI E/Lateral E'0.0E/Medial E'0.0 Tricuspid Valve TR Peak Qajywyib442ut/sRAP [id number] Peak Gr.22mmHg [id number] LEFT VENTRICLE The left ventricle is normal size. There is mild to moderate concentric left ventricular hypertrophy. The left ventricular function is normal. The left ventricular ejection fraction is within the normal range. There is normal LV segmental wall motion. Transmitral Doppler flow pattern is Grade I-abnormal relaxation pattern. RIGHT VENTRICLE The right ventricle is normal size. There is normal right ventricular wall thickness. The right ventricular systolic function is normal. ATRIA The left atrium is borderline dilated. The right atrium size is normal. AORTIC VALVE The aortic and Mitral valves are severely thickened. No aortic regurgitation is present. There is no aortic valvular stenosis. MITRAL VALVE Mitral regurgitation is mild. There is no mitral valve stenosis. TRICUSPID VALVE There is mild tricuspid regurgitation. PULMONIC VALVE There is mild pulmonic valvular regurgitation. GREAT VESSELS The aortic root is normal in size. PERICARDIAL EFFUSION There is a small pericardial effusion. <Conclusion> There is mild to moderate concentric left ventricular hypertrophy. The left ventricular function is normal. The left ventricular ejection fraction is within the normal range. There is normal LV segmental wall motion. Transmitral Doppler flow pattern is Grade I-abnormal relaxation pattern. The aortic and Mitral valves are severely thickened. Mitral regurgitation is mild. Consider BAY if clinically indicated
[2018-05-09] MEDS: Levothyroxine 50 MCG TAB PO SCH (07:21)
[2018-05-09] MEDS: Insulin Lispro (humaLOG) MEDIUM Coverage SC SCH ×3 (08:34→18:25)
[2018-05-09] MEDS: GlipiZIDE 5 mg SR Tab PO SCH ×2 (08:34→18:25)
[2018-05-09] MEDS ORDERED: Linezolid 600 mg in D5W 300 ml 600 MG/300 ML BAG IVPB SCH (10:00)
[2018-05-09] MEDS: Mupirocin 2% Ointment 15 GM TUBE TOP SCH ×2 (10:10→18:27)
[2018-05-09] MEDS: Insulin Detemir 100 units/ml Vial (Levemir) SC SCH (10:12)
[2018-05-09] MEDS: Psyllium Packet PO SCH ×2 (10:12→18:25)
[2018-05-09] MEDS: Potassium Chloride 10 mEq ER Tab PO SCH (10:12)
[2018-05-09] MEDS: Enoxaparin 30 mg Syringe SC SCH (10:13)
[2018-05-09] MEDS: Nystatin 100,000 Units/gm Topical Pow(15 gm) TOP SCH ×2 (10:14→18:26)
[2018-05-09] MEDS: Calcium-Vit D 250 mg-125 Units Tab UD PO SCH (10:14)
[2018-05-09] MEDS: Multivitamin With Minerals Tab PO SCH (10:15)
--- NOTE | 2018-05-09 11:25 | CP.PCM.PCO ---
Physician Communication Note - Physician Communication Note Physician Communication Note: IV Dapto dcd, on PO Zyvox tommosabi, for Tcu today
--- NOTE | 2018-05-09 13:43 | CP.PCM.PN ---
Subjective - Date & Time of Evaluation Date of Evaluation: 05/09/18 Time of Evaluation: 10:50 - Subjective Subjective: Comfortable on a chair, no fevers, no increased pain in the right foot, no nausea, no diarrhea. Objective - Vital Signs/Intake and Output Vital Signs (last 24 hours): Temp Pulse Resp BP Pulse Ox 97.9 F 73 20 117/57 L 97 05/09/18 07:52 05/09/18 10:13 05/09/18 07:52 05/09/18 10:13 05/09/18 07:52 - Medications Medications: Current Medications Acetaminophen (Tylenol 325mg Tab) 650 mg PO Q6H PRN PRN Reason: Pain, moderate (4-7) Last Admin: 05/06/18 21:42 Dose: 650 mg Aspirin (Ecotrin) 81 mg PO DAILY [facility] Last Admin: 05/09/18 10:11 Dose: 81 mg Atorvastatin Calcium (Lipitor) 20 mg PO HS [facility] Last Admin: 05/08/18 22:51 Dose: 20 mg Calcium/Vitamin D (Oscal-D 250 Mg-125 Units Tab) 2 tab PO DAILY [facility] Last Admin: 05/09/18 10:14 Dose: 2 tab Diphenhydramine HCl (Benadryl) 25 mg PO Q6 PRN PRN Reason: Itching / Pruritus Last Admin: 05/07/18 20:17 Dose: 25 mg Enoxaparin Sodium (Lovenox) 30 mg SC DAILY [facility]; Protocol Last Admin: 05/09/18 10:13 Dose: 30 mg Famotidine (Pepcid) 20 mg PO DAILY [facility] Last Admin: 05/09/18 10:14 Dose: 20 mg Ferrous Gluconate (Fergon) 324 mg PO TID [facility] Last Admin: 05/09/18 10:12 Dose: 324 mg Furosemide (Lasix) 40 mg IVP DAILY [facility] Last Admin: 05/09/18 10:12 Dose: 40 mg Glipizide (Glucotrol Xl) 5 mg PO ACBD [facility] Last Admin: 05/09/18 08:34 Dose: 5 mg Insulin Detemir (Levemir) 23 unit SC Q12 [facility] Last Admin: 05/09/18 10:12 Dose: 23 units Insulin Human Lispro (Humalog Med) 0 units SC ACHS [facility]; Protocol Last Admin: 05/09/18 12:32 Dose: 1 unit Levothyroxine Sodium (Synthroid) 50 mcg PO 0600 [facility] Last Admin: 05/09/18 07:21 Dose: 50 mcg Linezolid (Zyvox) 600 mg PO BID [facility]; Protocol Stop: 05/16/18 10:00 Losartan Potassium (Cozaar) 25 mg PO DAILY [facility] Last Admin: 05/09/18 10:10 Dose: Not Given Metoprolol Tartrate (Lopressor) 50 mg PO BID [facility] Last Admin: 05/09/18 10:13 Dose: Not Given Multivitamins/Minerals (Therapeutic-M Tab) 1 tab PO DAILY [facility] Last Admin: 05/09/18 10:15 Dose: 1 tab Mupirocin (Bactroban Ointment) 0 gm TOP BID [facility] Last Admin: 05/09/18 10:10 Dose: Not Given Nystatin (Nystop Topical Powder) 0 gm TOP BID [facility] Last Admin: 05/09/18 10:14 Dose: 1 applic Potassium Chloride (Klor-Con 10) 10 meq PO DAILY [facility] Last Admin: 05/09/18 10:12 Dose: 10 meq Psyllium Hydrophilic Mucilloid (Hydrocil Instant) 1 pkt PO BID [facility] Last Admin: 05/09/18 10:12 Dose: 1 pkt Quetiapine Fumarate (Seroquel) 25 mg PO HS [facility]; Protocol Last Admin: 05/08/18 22:50 Dose: 25 mg - Labs Labs: 05/08/18 11:20 05/08/18 11:20 PT 13.0 SECONDS (9.4-12.5) H 05/03/18 18:36 INR 1.17 05/03/18 18:36 APTT 36.6 Seconds (26.9-38.3) 05/03/18 18:36 - Constitutional Appears: Chronically Ill - Respiratory Exam Respiratory Exam: Decreased Breath Sounds - Cardiovascular Exam Cardiovascular Exam: +S1, +S2 - GI/Abdominal Exam GI & Abdominal Exam: Soft. 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 Linezolid) history of hypoglycemia, R/O drug-induced (i.e. Levaquin) history of right heel ulcer, infected with MRSA with no evidence of osteomyelitis on MRI - S/P treatment with antibiotics peripheral arterial disease history of left heel infected ulcer with cellulitis without evidence of osteomyelitis on MRI history of 2nd right toe and metatarsal head osteomyelitis S/P surgery chronic renal failure obesity with BMI 38 osteoarthritis HTN DM hypothyroidism S/P left toe amputation S/P right hip surgery Plan on Zyvox to complete therapy (day 5 of antibiotics for another 5-7 days); repeat blood cx are negative; follow up 2D echo as well Podiatry following and we discussed the case with them previously will continue to monitor clinically
--- NOTE | 2018-05-09 14:19 | CP.PCM.PN ---
<Dipak Tenorio - Last Filed: 05/09/18 14:16> Subjective - Date & Time of Evaluation Date of Evaluation: 05/09/18 Time of Evaluation: 14:16 - Subjective Subjective: Podiatry Consult note: Dr. Owusu 82 y/o F patient seen and evaluated for R heel ulceration. Patient resting comfortably in bedside chair and in NAD. Patient denies any pain to her ulcer site. Denies nausea/vomiting/fever/shortness of breath/chest pain. She denies any overnight acute events. Objective - Vital Signs/Intake and Output Vital Signs (last 24 hours): Temp Pulse Resp BP Pulse Ox 97.9 F 73 20 117/57 L 97 05/09/18 07:52 05/09/18 10:13 05/09/18 07:52 05/09/18 10:13 05/09/18 07:52 - Medications Medications: Current Medications Acetaminophen (Tylenol 325mg Tab) 650 mg PO Q6H PRN PRN Reason: Pain, moderate (4-7) Last Admin: 05/06/18 21:42 Dose: 650 mg Aspirin (Ecotrin) 81 mg PO DAILY [facility] Last Admin: 05/09/18 10:11 Dose: 81 mg Atorvastatin Calcium (Lipitor) 20 mg PO HS [facility] Last Admin: 05/08/18 22:51 Dose: 20 mg Calcium/Vitamin D (Oscal-D 250 Mg-125 Units Tab) 2 tab PO DAILY [facility] Last Admin: 05/09/18 10:14 Dose: 2 tab Diphenhydramine HCl (Benadryl) 25 mg PO Q6 PRN PRN Reason: Itching / Pruritus Last Admin: 05/07/18 20:17 Dose: 25 mg Enoxaparin Sodium (Lovenox) 30 mg SC DAILY [facility]; Protocol Last Admin: 05/09/18 10:13 Dose: 30 mg Famotidine (Pepcid) 20 mg PO DAILY [facility] Last Admin: 05/09/18 10:14 Dose: 20 mg Ferrous Gluconate (Fergon) 324 mg PO TID [facility] Last Admin: 05/09/18 10:12 Dose: 324 mg Furosemide (Lasix) 40 mg IVP DAILY [facility] Last Admin: 05/09/18 10:12 Dose: 40 mg Glipizide (Glucotrol Xl) 5 mg PO ACBD [facility] Last Admin: 05/09/18 08:34 Dose: 5 mg Insulin Detemir (Levemir) 23 unit SC Q12 [facility] Last Admin: 05/09/18 10:12 Dose: 23 units Insulin Human Lispro (Humalog Med) 0 units SC ACHS [facility]; Protocol Last Admin: 05/09/18 12:32 Dose: 1 unit Levothyroxine Sodium (Synthroid) 50 mcg PO 0600 [facility] Last Admin: 05/09/18 07:21 Dose: 50 mcg Linezolid (Zyvox) 600 mg PO BID [facility]; Protocol Stop: 05/16/18 10:00 Losartan Potassium (Cozaar) 25 mg PO DAILY [facility] Last Admin: 05/09/18 10:10 Dose: Not Given Metoprolol Tartrate (Lopressor) 50 mg PO BID [facility] Last Admin: 05/09/18 10:13 Dose: Not Given Multivitamins/Minerals (Therapeutic-M Tab) 1 tab PO DAILY [facility] Last Admin: 05/09/18 10:15 Dose: 1 tab Mupirocin (Bactroban Ointment) 0 gm TOP BID [facility] Last Admin: 05/09/18 10:10 Dose: Not Given Nystatin (Nystop Topical Powder) 0 gm TOP BID [facility] Last Admin: 05/09/18 10:14 Dose: 1 applic Potassium Chloride (Klor-Con 10) 10 meq PO DAILY [facility] Last Admin: 05/09/18 10:12 Dose: 10 meq Psyllium Hydrophilic Mucilloid (Hydrocil Instant) 1 pkt PO BID [facility] Last Admin: 05/09/18 10:12 Dose: 1 pkt Quetiapine Fumarate (Seroquel) 25 mg PO HS [facility]; Protocol Last Admin: 05/08/18 22:50 Dose: 25 mg - Labs Labs: 05/08/18 11:20 05/08/18 11:20 PT 13.0 SECONDS (9.4-12.5) H 05/03/18 18:36 INR 1.17 05/03/18 18:36 APTT 36.6 Seconds (26.9-38.3) 05/03/18 18:36 - Constitutional Appears: Well, No Acute Distress - Head Exam Head Exam: ATRAUMATIC, NORMOCEPHALIC - Extremities Exam Additional comments: LE focused exam Vasc: DP/PT pulses faintly palpable 1/4 b/l, Skin temperature warm to warm from proximal to distal, Cap refill < 3 seconds to all digits b/l, Moderate edema diffusely. Neuro: Gross and protective sensation diminished b/l. Derm: Right heel - 2.0 cm x 2.0 cm x 0.3 cm posterior right heel ulceration with mild periwound erythema, wound bed 80% granular tissue with 20% necrotic central patch, minimal serous drainage, no malodor, no purulence, negative probe to bone, no tracking/tunneling/undermining noted. MSK: Mild tenderness to palpation of ulceration site. MMT 4/5 in all major muscle groups - Neurological Exam Neurological Exam: Alert, Awake, Oriented x3 - Psychiatric Exam Psychiatric exam: Normal Affect, Normal Mood Assessment and Plan - Assessment and Plan (Free Text) Assessment: 82 y/o F with right heel ulceration, admitted for IV abx. Plan: Patient seen and evaluated with attending Dr. Owusu Plan discussed with Dr. Owusu. Charts, labs and vitals reviewed; Afebrile, No leukocytosis R heel X-ray: no signs of osteomyelitis noted R heel MRI: no acute osteomyelitis noted LE arterial duplex (10/25): Normal MCKENNA/PVR at rest Wound Cultures: MRSA, Corneybacterium species Local wound care: R heel dressed with bactroban, adaptic, maxorb, DSD, light OLGA LIDIA; L heel dressed with optifoam Multipodus boots to be worn at all times Ordered PT consult to dispense and train the patient to use reverse heel wedge shoe. ID consult; per ID continue Daptomycin and will discontinue Azactam; repeat blood cx are negative so far; follow up 2D echo as well; follow up final Blood Blood culture; No growth after 3 days. Podiatry will continue to follow up the patient while in house <Robby Owusu - Last Filed: 05/10/18 07:10> Objective - Vital Signs/Intake and Output Vital Signs (last 24 hours): Temp Pulse Resp BP Pulse Ox 98.4 F 98 H 19 146/66 98 05/09/18 17:38 05/09/18 18:25 05/09/18 17:38 05/09/18 18:25 05/09/18 17:38 - Labs Labs: 05/08/18 11:20 05/08/18 11:20 PT 13.0 SECONDS (9.4-12.5) H 05/03/18 18:36 INR 1.17 05/03/18 18:36 APTT 36.6 Seconds (26.9-38.3) 05/03/18 18:36 Attending/Attestation - Attestation I have personally seen and examined this patient.: Yes I have fully participated in the care of the patient.: Yes I have reviewed all pertinent clinical information, including history, physical exam and plan: Yes
[2018-05-09 17:39] VITALS: BP 146/66; PULSE 98; RESP 19; TEMP 98.4; O2SAT 98
--- NOTE | 2018-05-09 21:10 | DS ---
HISTORY OF PRESENT ILLNESS: The patient is an 82-year-old, was seen and examined. The patient was brought in because of worsening anxiety . She was being followed by Dr. Patterson and also she has wound culture done and she also streptococcus quite negative. Initially, she was given daptomycin and changed to IV Zyvox as per ID. So, she is being transferred to TCU for physical therapy and to complete her course of antibiotic. PAST MEDICAL HISTORY: She has significant past medical history of, 1. Hypertension. 2. Hyperlipidemia. 3. Insulin-dependant diabetes. 4. History of left middle toe amputation. PHYSICAL EXAMINATION: GENERAL: She is awake, alert, oriented and communicative. Does not offer any complaints. VITAL SIGNS: She is afebrile. Pulse 73, respiration 20 and blood pressure 117/57. LUNGS: Bilateral fair airflow. No rhonchi or crackle. HEART: S1 and S2, audible. ABDOMEN: Soft, obese and nontender. No rebound. No guarding. NEUROLOGIC: She is awake, alert, oriented and able to communicate. EXTREMITIES: Her left leg is in dressing. Bilateral leg no edema. LABORATORY DATA: WBC 6.9, hemoglobin 10.9, hematocrit 34 and platelets 182. Chemistry; blood sugar is 159. ASSESSMENT: 1. Right heel ulcer. 2. Coag-negative Staphylococcus wound infection. 3. Insulin-dependant diabetes. 4. Hypertension. 5. Hyperlipidemia. 6. Deconditioning and difficulty walking. PLAN: We will continue the patient on current medication. We will monitor her blood sugar and she is being followed up by Podiatry team. She has been started on p.o. Zyvox and she will be transferred to TCU today. We will followup. Liam Fernandez MD
== END 2018-05-09 19:50 | DRG 638 ==
LOC: ED 18:01 → ERH 20:08 → 3RNO 20:26
PROVIDERS: ADMIT Internal Medicine; ATTEND Internal Medicine
DX: E11.621 Type 2 diabetes mellitus with foot ulcer (principal); L03.115 Cellulitis of right lower limb; L97.419 Non-pressure chronic ulcer of right heel and midfoot with unspecified severity; E11.51 Type 2 diabetes mellitus with diabetic peripheral angiopathy without gangrene; E11.42 Type 2 diabetes mellitus with diabetic polyneuropathy; I25.10 Atherosclerotic heart disease of native coronary artery without angina pectoris; I10 Essential (primary) hypertension; E03.9 Hypothyroidism, unspecified; M15.9 Polyosteoarthritis, unspecified; E78.5 Hyperlipidemia, unspecified; B95.62 Methicillin resistant Staphylococcus aureus infection as the cause of diseases classified elsewhere; E66.9 Obesity, unspecified; Z68.37 Body mass index [BMI] 37.0-37.9, adult; Z89.422 Acquired absence of other left toe(s); Z88.0 Allergy status to penicillin

== ENCOUNTER 2018-05-09 19:50 | Inpatient (IN) | payer OTHER | END 2018-05-16 18:28 | disposition home or self-care (01) | LOC: TRCU 19:50 ==

== ENCOUNTER 2018-06-19 18:20 | Inpatient (IN) | payer MEDICARE, OTHER ==
[2018-06-19 18:48] VITALS: BMI 35.9
[2018-06-19] MEDS ORDERED: Vancomycin 1gm in NS 250ml 1 GM/250 ML BAG IVPB STA (19:13)
[2018-06-19] MEDS ORDERED: TDAP Vaccine 0.5 mL Syr IM ONE (19:13)
--- NOTE | 2018-06-19 19:55 | ED PDOC ---
Arrival/HPI - General Chief Complaint: Lower Extremity Problem/Injury Time Seen by Provider: 06/19/18 18:31 Historian: Patient - History of Present Illness Narrative History of Present Illness (Text): 06/19/18 20:00 82-year-old female with past medical history of diabetes, hypothyroidism, CHF presents to the emergency room for possible infection to the right heel. 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 Patterson today who advised her and her daughter to go to the emergency room to be admitted to get IV antibiotics. Patient's daughter states that she has had this ulcer to her right heel which she has been following with Dr. Patterson however today her manager of school realized that there was active drainage from the wound concerning possible infection. Of note, patient has had amputation to her right second and third toe, as well as her left great toe. Otherwise the patient denies any fever, chills, pain, numbness. Patient has no additional complaints. Patient presents with a Rx for admission, vancomycin 1 g q12h, with consult to Dr. Oneill for ID. PMD [employer] Dee Dee Oneill Past Medical History - Infectious Disease Hx of Infectious Diseases: None - Tetanus Immunization Tetanus Immunization: Unknown - Cardiac Hx Cardiac Disorders: Yes (CAD,) Hx Hypertension: Yes - Pulmonary Hx Respiratory Disorders: No - Neurological Hx Neurological Disorder: Yes (PHERIPHERAL NEUROPATHY) - HEENT Hx HEENT Disorder: Yes Hx Cataracts: Yes - Renal Hx Renal Disorder: No - Endocrine/Metabolic Hx Endocrine Disorders: Yes Hx Diabetes Mellitus Type 2: Yes Hx Hypothyroidism: Yes - Hematological/Oncological Hx Blood Disorders: No - Integumentary Hx Dermatological Disorder: Yes Other/Comment: L GREAT TOE AND RIGHT 2ND TOE AMPUATED. - Musculoskeletal/Rheumatological Hx Musculoskeletal Disorders: Yes Hx Falls: Yes Other/Comment: multiple toe amputations - Gastrointestinal Hx Gastrointestinal Disorders: Yes Hx Gastroesophageal Reflux: Yes - Genitourinary/Gynecological Hx Genitourinary Disorders: Yes - Psychiatric Hx Psychophysiologic Disorder: No Hx Substance Use: No - Surgical History Hx Orthopedic Surgery: Yes (toe amputations) Other/Comment: carpal tunnel. R hip marisol - Anesthesia Hx Anesthesia: Yes Hx Anesthesia Reactions: No Hx Malignant Hyperthermia: No - Suicidal Assessment Feels Threatened In Home Enviroment: No Family/Social History Family/Social History: No Known Family HX Smoking Status: Never Smoked Hx Alcohol Use: No Hx Substance Use: No Hx Substance Use Treatment: No Allergies/Home Meds Allergies/Adverse Reactions: Allergies Penicillins Allergy (Intermediate, Verified 06/19/18 18:46) ITCHING Home Medications: Home Meds Medication Instructions Recorded Confirmed Cholecalciferol (Vitamin D3) 1 tab PO DAILY 05/03/18 06/19/18 [Vitamin D3] Furosemide [Lasix] 1 tab PO DAILY 05/03/18 06/19/18 Ranitidine HCl [Acid Dietetic Intern] 1 tab PO DAILY 05/03/18 06/19/18 Review of Systems - Review of Systems Constitutional: absent: Fatigue, Fevers Respiratory: absent: SOB, Cough Cardiovascular: absent: Chest Pain, Palpitations Gastrointestinal: absent: Abdominal Pain, Nausea, Vomiting Musculoskeletal: Arthralgias. absent: Back Pain, Neck Pain Skin: Ulcer (R heel). absent: Rash, Pruritis, Skin Lesions Neurological: absent: Headache, Dizziness Physical Exam Vital Signs Temp Pulse Resp BP Pulse Ox 06/19/18 18:50 98.9 F 102 H 18 137/66 100 Temperature: Afebrile Blood Pressure: Normal Pulse: Tachycardic Respiratory Rate: Normal Appearance: Positive for: Well-Appearing, Non-Toxic, Comfortable Pain Distress: None Mental Status: Positive for: Alert and Oriented X 3 - Systems Exam Head: Present: Atraumatic, Normocephalic Pupils: Present: PERRL Extroacular Muscles: Present: EOMI Conjunctiva: Present: Normal Mouth: Present: Moist Mucous Membranes Neck: Present: Normal Range of Motion Respiratory/Chest: Present: Clear to Auscultation, Good Air Exchange. No: Respiratory Distress, Accessory Muscle Use Cardiovascular: Present: Regular Rate and Rhythm, Normal S1, S2. No: Murmurs Abdomen: No: Tenderness, Distention, Peritoneal Signs Back: Present: Normal Inspection Upper Extremity: Present: Normal Inspection. No: Cyanosis, Edema Lower Extremity: Present: Edema (1+ pitting edema), NORMAL PULSES, Normal ROM, Erythema (to the R heel with +3x3 cm superficial ulcer without drainage), Neurovascularly Intact, Capillary Refill < 2 s. No: Tenderness, Temperature Abnormalties Neurological: Present: GCS=15, CN II-XII Intact, Speech Normal Skin: Present: Warm, Dry, Normal Color. No: Rashes Psychiatric: Present: Alert, Oriented x 3, Normal Insight, Normal Concentration Medical Decision Making ED Course and Treatment: 06/19/18 19:52 Plan : - IV - Labs - Wound cx / Blood cx - EKG - CXR - Vancomycin IV - Tdap IM - Reassess / disposition - Consult for ID - Dr. Obrien - Consult for podiatry - Dr. Patterson 06/19/18 21:21 EKG : CXR : NAD, elevated L hemidiapraghm. XR R foot : +djd, +amputation of the 3rd phalanx, +amputation of the distal aspect of the 2nd metatarsal and phalanx, old healed fracture of 5th metatarsal. Labs reviewed : wbc 12.8 with L shift, bun 39/creat 1.3, glucose 256, bnp 503 On reevaluation, patient reports no other complaints. On exam, patient remains awake alert and oriented 3 in no acute distress. Results d/w the patient and her daughter. Case d/w Dr. Fernandez, agrees with plan for admission. - RAD Interpretation Radiology Orders: 06/19/18 19:12 CHEST ONE VIEW [RAD] Stat 06/19/18 19:13 FOOT RIGHT 3 VIEWS ROUTINE [RAD] Stat - Medication Orders Current Medication Orders: Vancomycin HCl (Vancomycin 1gm) 1 gm in 250 mls @ 167 mls/hr IVPB STAT STA; Protocol Stop: 06/19/18 20:42 Discontinued Medications Tetanus/Reduced Diphtheria/Acell Pertussis (Boostrix Vaccine Inj) 0.5 ml IM .ONCE ONE Stop: 06/19/18 19:14 - PA / CHEMICAL APPLICATOR / Resident Statement MD/DO has reviewed & agrees with the documentation as recorded. Disposition/Present on Arrival - Present on Arrival Any Indicators Present on Arrival: Yes History of DVT/PE: No History of Uncontrolled Diabetes: Yes Urinary Catheter: No History of Decub. Ulcer: No History Surgical Site Infection Following: None - Disposition Have Diagnosis and Disposition been Completed?: Yes Diagnosis: Cellulitis, Infected wound Disposition: HOSPITALIZED Disposition Time: 19:15 Patient Plan: Admission Patient Problems: Current Active Problems Problem Status Onset Cellulitis Acute Infected wound Acute Condition: STABLE
[2018-06-19 20:10] LABS: BASO # 0.03 K/mm3 (0.0-2.0); BASO % 0.2 % (0.0-3.0); EOS # 0.2 (0.0-0.7); EOS % 1.4 % (1.5-5.0); HEMOGLOBIN 12.2 g/dL (12.0-16.0); LYMPH # 1.7 (1.2-3.4); LYMPH % 13.5 % (22.0-35.0); MEAN CELL VOLUME 96.4 fl (80.0-105.0); MEAN CORPUSCULAR HEMOGLOBIN 31.4 pg (25.0-35.0); MEAN CORPUSCULAR HGB CONC 32.6 g/dl (31.0-37.0); MEAN PLATELET VOLUME 12.5 fl (7.0-11.0); MONO # 1.1 (0.1-0.6); MONO % 8.7 % (1.0-6.0); RBC 3.88 10^6/uL (3.5-6.1); RED CELL DISTRIBUTION WIDTH 13.8 % (11.5-14.5); WHITE BLOOD COUNT 12.8 10^3/uL (4.5-11.0)
[2018-06-19 20:17] LABS: ALB/GLOB RATIO 0.9 (1.1-1.8); CALCIUM 9.4 mg/dL (8.4-10.5); INR 1.16; PARTIAL THROMBOPLASTIN TIME 40.6 Seconds (26.9-38.3); PROTHROMBIN TIME 12.9 SECONDS (9.4-12.5)
[2018-06-19] MEDS ORDERED: Vancomycin 1gm in NS 250ml 1 GM/250 ML BAG IVPB SCH (22:45)
--- NOTE | 2018-06-20 03:42 | HP ---
DATE OF EXAM: 06/19/2018 HISTORY OF PRESENT ILLNESS: The patient is an 82-year-old white female, who is following with Dr. Patterson for her right heel ulcer. [facility] she was seen by Dr. Patterson who found her heel wound has gotten worse since last admission, so she referred her to emergency room from the wound care and IV antibiotics. The patient denies any fever or chills. No history of nausea or vomiting. No cough or congestion. PAST MEDICAL HISTORY: Significant for: 1. Insulin-dependent diabetes. 2. Hypothyroidism. 3. History of hyperlipidemia. 4. Peripheral vascular disease. PAST SURGICAL HISTORY: Significant for right second and third toe amputation and status post left big toe amputation. ALLERGIES: SHE IS ALLERGIC TO PENICILLIN. MEDICATIONS AT HOME: The patient is on: 1. Levothyroxine 50 mcg daily. 2. Levemir units at bedtime. 3. Glipizide 5 mg daily. 4. Lasix 20 mg daily. 5. Ferrous sulfate 325 mg daily. 6. Pepcid 20 mg daily. 7. Lipitor 20 mg daily. 8. Aspirin 81 mg daily. 9. Potassium chloride 10 mEq daily. 10. Metoprolol 50 mg twice a day. 11. Losartan 25 daily. 12. Seroquel 25 mg at bedtime. SOCIAL HISTORY: She lives with her daughter. Denies smoking or drinking alcohol use. PHYSICAL EXAMINATION: GENERAL: She is awake, alert, and oriented, and able to communicate. VITAL SIGNS: She is afebrile, pulse 104, respirations 18, and blood pressure 145/77. LUNGS: Bilateral fair airflow. No rhonchi or crackle. HEART: S1 and S2 audible. ABDOMEN: Soft, obese, and nontender. No rebound. No guarding. NEUROLOGIC: She is awake, alert, oriented, and communicative. LABORATORY DATA: WBC of 12.8, hemoglobin 12, hematocrit 37, and platelets 200. PT of 12.9 and INR of 1.16. Chemistries; sodium 139, potassium 4.6, chloride 99, CO2 of 31, BUN 39, creatinine 1.3, and blood sugar of 286. AST of 43, ALT of 25, and alkaline phosphatase is . BNP is 503. Foot x-ray is pending. X-ray of chest is negative. ASSESSMENT: 1. Right heel ulcer, rule out osteomyelitis. 2. Cellulitis. 3. Hypertension. 4. Hyperlipidemia. 5. Insulin-dependent diabetes. PLAN: The patient will be admitted on Med/Surg. Start her on IV vancomycin. Dr. Oneill has been consulted. We will monitor her blood sugar. Dr. Patterson will be seeing the patient. Local wound care by podiatry team. Wound culture and blood cultures have been sent. We will follow up the patient in a.m. Liam Fernandez MD
[2018-06-20] MEDS: Levothyroxine 50 MCG TAB PO SCH (06:35)
[2018-06-20] MEDS ORDERED: Vancomycin 1gm in NS 250ml 1 GM/250 ML BAG IVPB ONE (07:00)
[2018-06-20] MEDS: Insulin Lispro (humaLOG) MEDIUM Coverage SC SCH ×4 (07:33→22:26)
[2018-06-20] MEDS ORDERED: Vancomycin 1.5 GM in Sodium Chloride 0.9% 500 ML IVPB ONE (07:51)
[2018-06-20] MEDS: GlipiZIDE 5 mg SR Tab PO SCH ×2 (08:49→17:43)
[2018-06-20] MEDS ORDERED: Cefepime IV 2 gm in NS 2 GM/100 ML BAG IVPB SCH (10:00)
[2018-06-20] MEDS ORDERED: RANITIDINE HCL PO SCH (10:00)
[2018-06-20] MEDS: Enoxaparin 30 mg Syringe SC SCH (10:01)
[2018-06-20] MEDS: Insulin Detemir 100 units/ml Vial (Levemir) SC SCH ×2 (10:02→23:42)
[2018-06-20] MEDS: Potassium Chloride 10 mEq ER Tab PO SCH (10:02)
--- NOTE | 2018-06-20 11:40 | CP.PCM.CON ---
<Paulo Duron - Last Filed: 06/20/18 11:36> History of Present Illness - History of Present Illness History of Present Illness: Paulo Duron D.O. PGY-3, Internal Medicine Resident, Infectious Disease Consultation Note 82-year-old female with a past medical history of diabetes mellitus, heart failure, hypothyroidism, who presents for a nonhealing right heel ulcer. I nfectious disease consultation was requested. Patient was seen and examined at bedside. Patient relates how she is issues with her feet for years. 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 Patient states that she had no acute issues with it herself but when she went to see her mechanical artist Dr. Patterson she was told that she had active drainage from the wound which was concerning for possible infection. Patient at this time is eating breakfast comfortably and sites no acute complaints including no fevers, nausea, vomiting, diarrhea, constipation, lightheadedness, shortness of breath, headache, chest pain or other worrisome signs. Patient is concerned that she may need another amputation. Of note, the patient's was last seen by our service on 05/09/18 for issues with his right heel ulcer which at that time did not have any evidence of osteomyelitis but was growing MRSA. From reveals that the documentation patient also appears to have peripheral artery disease and infection of the left heel ulcer as well. Patient was noted to have some renal dysfunction as well and obesity. Review of Systems - Review of Systems All systems: reviewed and no additional remarkable complaints except (as per HPI) Past Patient History - Infectious Disease Hx of Infectious Diseases: None - Tetanus Immunizations Tetanus Immunization: Unknown - Past Medical History & Family History Past Medical History?: Yes - Past Social History Smoking Status: Never Smoked - CARDIAC Hx Cardiac Disorders: Yes (CAD,) Hx Congestive Heart Failure: Yes Hx Hypertension: Yes Hx Peripheral Vascular Disease: Yes - PULMONARY Hx Respiratory Disorders: No - NEUROLOGICAL Hx Neurological Disorder: Yes (PHERIPHERAL NEUROPATHY) - HEENT Hx HEENT Problems: Yes Hx Cataracts: Yes - RENAL Hx Chronic Kidney Disease: No - ENDOCRINE/METABOLIC Hx Endocrine Disorders: Yes Hx Diabetes Mellitus Type 2: Yes Hx Hypothyroidism: Yes - HEMATOLOGICAL/ONCOLOGICAL Hx Blood Disorders: No - INTEGUMENTARY Hx Dermatological Problems: Yes Other/Comment: L GREAT TOE AND RIGHT 2ND TOE AMPUATED. - MUSCULOSKELETAL/RHEUMATOLOGICAL Hx Musculoskeletal Disorders: Yes Hx Arthritis: Yes Hx Falls: Yes Other/Comment: multiple toe amputations - GASTROINTESTINAL Hx Gastrointestinal Disorders: Yes Hx Gastroesophageal Reflux: Yes - GENITOURINARY/GYNECOLOGICAL Hx Genitourinary Disorders: Yes Hx Incontinence: Yes - PSYCHIATRIC Hx Psychophysiologic Disorder: No Hx Substance Use: No - SURGICAL HISTORY Hx Surgeries: Yes Hx Amputation: Yes Hx Orthopedic Surgery: Yes (toe amputations) Other/Comment: carpal tunnel. R hip marisol - ANESTHESIA Hx Anesthesia: Yes Hx Anesthesia Reactions: No Hx Malignant Hyperthermia: No Meds Allergies/Adverse Reactions: Allergies Allergy/AdvReac Type Severity Reaction Status Date / Time Penicillins Allergy Intermediate ITCHING Verified 06/19/18 18:46 - Medications Medications: Current Medications Acetaminophen (Tylenol 325mg Tab) 650 mg PO Q6H PRN PRN Reason: Pain, moderate (4-7) Aspirin (Ecotrin) 81 mg PO DAILY [facility] Last Admin: 06/20/18 10:02 Dose: 81 mg Atorvastatin Calcium (Lipitor) 20 mg PO HS [facility] Last Admin: 06/19/18 22:53 Dose: Not Given Diphenhydramine HCl (Benadryl) 25 mg PO Q6 PRN PRN Reason: Itching / Pruritus Last Admin: 06/19/18 23:01 Dose: 25 mg Enoxaparin Sodium (Lovenox) 30 mg SC DAILY [facility]; Protocol Last Admin: 06/20/18 10:01 Dose: 30 mg Famotidine (Pepcid) 20 mg PO HS [facility] Last Admin: 06/19/18 23:00 Dose: 20 mg Ferrous Gluconate (Fergon) 324 mg PO TID [facility] Furosemide (Lasix) 20 mg PO DAILY [facility] Last Admin: 06/20/18 10:02 Dose: 20 mg Glipizide (Glucotrol Xl) 5 mg PO ACBD [facility] Last Admin: 06/20/18 08:49 Dose: 5 mg Cefepime HCl (Maxipime 2gm) 2 gm in 100 mls @ 100 mls/hr IVPB DAILY [facility]; Protocol Stop: 06/25/18 10:01 Last Admin: 06/20/18 10:03 Dose: 100 mls/hr Insulin Detemir (Levemir) 23 unit SC Q12 [facility] Last Admin: 06/20/18 10:02 Dose: 23 units Insulin Human Lispro (Humalog Med) 0 units SC ACHS [facility]; Protocol Last Admin: 06/20/18 07:33 Dose: Not Given Levothyroxine Sodium (Synthroid) 50 mcg PO 0600 [facility] Last Admin: 06/20/18 06:35 Dose: 50 mcg Losartan Potassium (Cozaar) 25 mg PO DAILY [facility] Last Admin: 06/20/18 09:55 Dose: Not Given Metoprolol Tartrate (Lopressor) 50 mg PO BID [facility] Last Admin: 06/20/18 09:55 Dose: Not Given Potassium Chloride (Klor-Con 10) 10 meq PO DAILY [facility] Last Admin: 06/20/18 10:02 Dose: 10 meq Quetiapine Fumarate (Seroquel) 25 mg PO HS [facility]; Protocol Last Admin: 06/19/18 22:55 Dose: Not Given Physical Exam - Constitutional Appears: Non-toxic, No Acute Distress - Head Exam Head Exam: ATRAUMATIC, NORMOCEPHALIC - Eye Exam Eye Exam: absent: Scleral icterus - ENT Exam ENT Exam: Mucous Membranes Moist, Normal Oropharynx - Neck Exam Neck exam: Positive for: Normal Inspection - Respiratory Exam Respiratory Exam: Clear to Auscultation Bilateral. absent: Rhonchi, Wheezes - Cardiovascular Exam Cardiovascular Exam: RRR, +S1, +S2. absent: Rubs - GI/Abdominal Exam GI & Abdominal Exam: Normal Bowel Sounds, Soft. absent: Tenderness - Extremities Exam Extremities exam: Positive for: pedal edema (mild). Negative for: calf tenderne ss Additional comments: right heel with wrapping, mild drainage, somewhat malodorous - Neurological Exam Neurological exam: Alert - Psychiatric Exam Psychiatric exam: Normal Affect, Normal Mood - Skin Skin Exam: Dry, Warm Results - Vital Signs Recent Vital Signs: Last Vital Signs Temp 98 F 06/20/18 08:41 Pulse 72 06/20/18 09:55 Resp 20 06/20/18 08:41 BP 92/42 L 06/20/18 10:02 Pulse Ox 95 06/20/18 08:41 - Labs Result Diagrams: 06/19/18 20:00 06/19/18 20:00 Labs: Laboratory Results - last 24 hr 06/19/18 06/19/18 06/19/18 20:00 20:00 20:00 WBC 12.8 H D RBC 3.88 Hgb 12.2 Hct 37.4 MCV 96.4 MCH 31.4 MCHC 32.6 RDW 13.8 Plt Count 200 MPV 12.5 H Neut % (Auto) 76.2 H Lymph % (Auto) 13.5 L Blaine % (Auto) 8.7 H Eos % (Auto) 1.4 L Baso % (Auto) 0.2 Lymph # (Auto) 1.7 Blaine # (Auto) 1.1 H Eos # (Auto) 0.2 Baso # (Auto) 0.03 Absolute Neuts (auto) 9.78 H PT 12.9 H INR 1.16 APTT 40.6 H Sodium 139 Potassium 4.6 Chloride 99 Carbon Dioxide 31 Anion Gap 14 BUN 39 H Creatinine 1.3 H Est GFR ( Amer) 48 Est GFR (Non-Af Amer) 39 POC Glucose (mg/dL) Random Glucose 256 H Calcium 9.4 Total Bilirubin 0.4 AST 43 H D ALT 25 Alkaline Phosphatase 213 H NT-Pro-B Natriuret Pep Total Protein 8.4 H Albumin 4.0 Globulin 4.4 Albumin/Globulin Ratio 0.9 L 06/19/18 06/19/18 06/20/18 20:00 21:24 06:37 WBC RBC Hgb Hct MCV MCH MCHC RDW Plt Count MPV Neut % (Auto) Lymph % (Auto) Blaine % (Auto) Eos % (Auto) Baso % (Auto) Lymph # (Auto) Blaine # (Auto) Eos # (Auto) Baso # (Auto) Absolute Neuts (auto) PT INR APTT Sodium Potassium Chloride Carbon Dioxide Anion Gap BUN Creatinine Est GFR ( Amer) Est GFR (Non-Af Amer) POC Glucose (mg/dL) 279 H 134 H Random Glucose Calcium Total Bilirubin AST ALT Alkaline Phosphatase NT-Pro-B Natriuret Pep 503 H Total Protein Albumin Globulin Albumin/Globulin Ratio Assessment & Plan - Assessment and Plan (Free Text) Assessment: 82-year-old female with a past medical history of diabetes mellitus, heart failure, hypothyroidism, who presents for a nonhealing right heel ulcer. Infectious disease consultation was requested. 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 Has been afebrile Discussed with podiatry at bedside, high suspicion for acute osteomyelitis CRP ordered ESR ordered Blood culture and wound culture drawn Feet x-ray ordered and to be reviewed by radiology Foot MRI ordered Discussed extensively with patient at bedside and all questions welcomed and answered to patient's verbal satisfaction We will give a one-time dose of vancomycin 1.5 g We will start on cefepime 2 g daily We will follow with you Patient was seen and examined and case to be discussed at length with attending physician Thank you for the pleasure participating in the care of this interesting patient - Date & Time Date: 06/20/18 Time: 09:15 <Clay Oneill - Last Filed: 06/20/18 12:18> Meds - Medications Medications: Current Medications Acetaminophen (Tylenol 325mg Tab) 650 mg PO Q6H PRN PRN Reason: Pain, moderate (4-7) Aspirin (Ecotrin) 81 mg PO DAILY [facility] Last Admin: 06/20/18 10:02 Dose: 81 mg Atorvastatin Calcium (Lipitor) 20 mg PO HS [facility] Last Admin: 06/19/18 22:53 Dose: Not Given Diphenhydramine HCl (Benadryl) 25 mg PO Q6 PRN PRN Reason: Itching / Pruritus Last Admin: 06/19/18 23:01 Dose: 25 mg Enoxaparin Sodium (Lovenox) 30 mg SC DAILY [facility]; Protocol Last Admin: 06/20/18 10:01 Dose: 30 mg Famotidine (Pepcid) 20 mg PO HS [facility] Last Admin: 06/19/18 23:00 Dose: 20 mg Ferrous Gluconate (Fergon) 324 mg PO TID [facility] Furosemide (Lasix) 20 mg PO DAILY [facility] Last Admin: 06/20/18 10:02 Dose: 20 mg Glipizide (Glucotrol Xl) 5 mg PO ACBD [facility] Last Admin: 06/20/18 08:49 Dose: 5 mg Cefepime HCl (Maxipime 2gm) 2 gm in 100 mls @ 100 mls/hr IVPB DAILY [facility]; Protocol Stop: 06/25/18 10:01 Last Admin: 06/20/18 10:03 Dose: 100 mls/hr Insulin Detemir (Levemir) 23 unit SC Q12 [facility] Last Admin: 06/20/18 10:02 Dose: 23 units Insulin Human Lispro (Humalog Med) 0 units SC ACHS [facility]; Protocol Last Admin: 06/20/18 07:33 Dose: Not Given Levothyroxine Sodium (Synthroid) 50 mcg PO 0600 [facility] Last Admin: 06/20/18 06:35 Dose: 50 mcg Losartan Potassium (Cozaar) 25 mg PO DAILY [facility] Last Admin: 06/20/18 09:55 Dose: Not Given Metoprolol Tartrate (Lopressor) 50 mg PO BID [facility] Last Admin: 06/20/18 09:55 Dose: Not Given Potassium Chloride (Klor-Con 10) 10 meq PO DAILY [facility] Last Admin: 06/20/18 10:02 Dose: 10 meq Quetiapine Fumarate (Seroquel) 25 mg PO HS [facility]; Protocol Last Admin: 06/19/18 22:55 Dose: Not Given Results - Vital Signs Recent Vital Signs: Last Vital Signs Temp 98 F 06/20/18 08:41 Pulse 72 06/20/18 09:55 Resp 20 06/20/18 08:41 BP 92/42 L 06/20/18 10:02 Pulse Ox 95 06/20/18 08:41 - Labs Result Diagrams: 06/19/18 20:00 06/19/18 20:00 Labs: Laboratory Results - last 24 hr 06/19/18 06/19/18 06/19/18 20:00 20:00 20:00 WBC 12.8 H D RBC 3.88 Hgb 12.2 Hct 37.4 MCV 96.4 MCH 31.4 MCHC 32.6 RDW 13.8 Plt Count 200 MPV 12.5 H Neut % (Auto) 76.2 H Lymph % (Auto) 13.5 L Blaine % (Auto) 8.7 H Eos % (Auto) 1.4 L Baso % (Auto) 0.2 Lymph # (Auto) 1.7 Blaine # (Auto) 1.1 H Eos # (Auto) 0.2 Baso # (Auto) 0.03 Absolute Neuts (auto) 9.78 H ESR PT 12.9 H INR 1.16 APTT 40.6 H Sodium 139 Potassium 4.6 Chloride 99 Carbon Dioxide 31 Anion Gap 14 BUN 39 H Creatinine 1.3 H Est GFR ( Amer) 48 Est GFR (Non-Af Amer) 39 POC Glucose (mg/dL) Random Glucose 256 H Calcium 9.4 Total Bilirubin 0.4 AST 43 H D ALT 25 Alkaline Phosphatase 213 H NT-Pro-B Natriuret Pep Total Protein 8.4 H Albumin 4.0 Globulin 4.4 Albumin/Globulin Ratio 0.9 L 06/19/18 06/19/18 06/20/18 20:00 21:24 06:37 WBC RBC Hgb Hct MCV MCH MCHC RDW Plt Count MPV Neut % (Auto) Lymph % (Auto) Blaine % (Auto) Eos % (Auto) Baso % (Auto) Lymph # (Auto) Blaine # (Auto) Eos # (Auto) Baso # (Auto) Absolute Neuts (auto) ESR PT INR APTT Sodium Potassium Chloride Carbon Dioxide Anion Gap BUN Creatinine Est GFR ( Amer) Est GFR (Non-Af Amer) POC Glucose (mg/dL) 279 H 134 H Random Glucose Calcium Total Bilirubin AST ALT Alkaline Phosphatase NT-Pro-B Natriuret Pep 503 H Total Protein Albumin Globulin Albumin/Globulin Ratio 06/20/18 10:30 WBC RBC Hgb Hct MCV MCH MCHC RDW Plt Count MPV Neut % (Auto) Lymph % (Auto) Blaine % (Auto) Eos % (Auto) Baso % (Auto) Lymph # (Auto) Blaine # (Auto) Eos # (Auto) Baso # (Auto) Absolute Neuts (auto) ESR 120 H PT INR APTT Sodium Potassium Chloride Carbon Dioxide Anion Gap BUN Creatinine Est GFR ( Amer) Est GFR (Non-Af Amer) POC Glucose (mg/dL) Random Glucose Calcium Total Bilirubin AST ALT Alkaline Phosphatase NT-Pro-B Natriuret Pep Total Protein Albumin Globulin Albumin/Globulin Ratio Attending/Attestation - Attestation I have personally seen and examined this patient.: Yes I have fully participated in the care of the patient.: Yes I have reviewed all pertinent clinical information: Yes
--- NOTE | 2018-06-20 11:49 | CARD ---
APPROVED REPORT Date of service: 06/19/2018 EKG Measurement Heart [id number] <Conclusion> Normal sinus rhythm Left axis deviation Moderate voltage criteria for LVH, may be normal variant Cannot rule out Septal infarct, age undetermined Abnormal ECG
--- NOTE | 2018-06-20 12:46 | RAD ---
Date of service: 06/19/2018 PROCEDURE: CHEST RADIOGRAPH, 1 VIEW HISTORY: for admission COMPARISON: 05/03/2018 FINDINGS: LUNGS: Clear. PLEURA: No pneumothorax or pleural fluid seen. CARDIOVASCULAR: No aortic atherosclerotic calcification present. Normal. OSSEOUS STRUCTURES: No significant abnormalities. VISUALIZED UPPER ABDOMEN: Normal. OTHER FINDINGS: None. IMPRESSION: No active disease.
--- NOTE | 2018-06-20 12:48 | RAD ---
Date of service: 06/19/2018 PROCEDURE: Right Foot Radiographs. HISTORY: heel ulcer COMPARISON: 11/16/2017 TECHNIQUE: 3 views obtained. FINDINGS: BONES: Status post osteotomy distal aspect 2nd metatarsal with amputation mid 2nd proximal phalanx. Amputation 3rd digit at MTP articulation. Old healed fracture 5th metatarsal diaphysis. No osseous erosion or periosteal reaction. Plantar calcaneal spur noted. JOINTS: Normal. SOFT TISSUES: Normal. OTHER FINDINGS: None. IMPRESSION: No plain radiographic evidence of osteomyelitis.
--- NOTE | 2018-06-20 13:10 | CP.PCM.CON ---
History of Present Illness - History of Present Illness History of Present Illness: Podiatry Consult note: Dr. Owusu 82 year old F with PMH of CAD, HTN, DM2, Hypothyroidism, Hx falls, Insomnia, PAD, and previous amputations seen at bedside with Dr. Patterson for infected right heel ulcer. She is AAO x 3 and NAD at time of visit. Patient is very well known to the podiatry service. Patient states that she was in the hospital 2 months ago and got discharged after her right heel ulcer got healed. She states that 2 days ago she started to note drainage from her right heel and her daughter started to note the ulcer in her right heel started to reopen again. She states that she is compliant with using the wedge shoe except recently when she switched from the wedge shoe to the regular surgical shoe. Patient states that she is using the multipodus boot when she is on bed all the times. Patient states that she doesn't feel pain in her foot as she is neuropathic. Denies any further pedal complaints at this time. Denies any acute overnight events. Denies any recent N/V/F/C/CP/SOB/D/posterior calf pain when squeezed. PMH: CAD, HTN, DM2, Hypothyroidism, Hx falls, Insomnia, PAD. PSH: Amputation of L great toe and R second toe, Gamma marisol (ORIF) R hip, Thyroid removal for nodule, Carpal tunnel surgery R wrist FH: DM, HTN Social Hx: Ambulating with walker. Live with Daughter Kika , who sought her med Denies tobacco, social alcohol and denies illicit drug use Allergies : Penicillins Review of Systems - Review of Systems Review of Systems: As per HPI - Constitutional Constitutional: As Per HPI Past Patient History - Infectious Disease Hx of Infectious Diseases: None - Tetanus Immunizations Tetanus Immunization: Unknown - Past Medical History & Family History Past Medical History?: Yes - Past Social History Smoking Status: Never Smoked - CARDIAC Hx Cardiac Disorders: Yes (CAD,) Hx Congestive Heart Failure: Yes Hx Hypertension: Yes Hx Peripheral Vascular Disease: Yes - PULMONARY Hx Respiratory Disorders: No - NEUROLOGICAL Hx Neurological Disorder: Yes (PHERIPHERAL NEUROPATHY) - HEENT Hx HEENT Problems: Yes Hx Cataracts: Yes - RENAL Hx Chronic Kidney Disease: No - ENDOCRINE/METABOLIC Hx Endocrine Disorders: Yes Hx Diabetes Mellitus Type 2: Yes Hx Hypothyroidism: Yes - HEMATOLOGICAL/ONCOLOGICAL Hx Blood Disorders: No - INTEGUMENTARY Hx Dermatological Problems: Yes Other/Comment: L GREAT TOE AND RIGHT 2ND TOE AMPUATED. - MUSCULOSKELETAL/RHEUMATOLOGICAL Hx Musculoskeletal Disorders: Yes Hx Arthritis: Yes Hx Falls: Yes Other/Comment: multiple toe amputations - GASTROINTESTINAL Hx Gastrointestinal Disorders: Yes Hx Gastroesophageal Reflux: Yes - GENITOURINARY/GYNECOLOGICAL Hx Genitourinary Disorders: Yes Hx Incontinence: Yes - PSYCHIATRIC Hx Psychophysiologic Disorder: No Hx Substance Use: No - SURGICAL HISTORY Hx Surgeries: Yes Hx Amputation: Yes Hx Orthopedic Surgery: Yes (toe amputations) Other/Comment: carpal tunnel. R hip marisol - ANESTHESIA Hx Anesthesia: Yes Hx Anesthesia Reactions: No Hx Malignant Hyperthermia: No Meds Allergies/Adverse Reactions: Allergies Allergy/AdvReac Type Severity Reaction Status Date / Time Penicillins Allergy Intermediate ITCHING Verified 06/19/18 18:46 - Medications Medications: Current Medications Acetaminophen (Tylenol 325mg Tab) 650 mg PO Q6H PRN PRN Reason: Pain, moderate (4-7) Aspirin (Ecotrin) 81 mg PO DAILY [facility] Last Admin: 06/20/18 10:02 Dose: 81 mg Atorvastatin Calcium (Lipitor) 20 mg PO HS [facility] Last Admin: 06/19/18 22:53 Dose: Not Given Diphenhydramine HCl (Benadryl) 25 mg PO Q6 PRN PRN Reason: Itching / Pruritus Last Admin: 06/19/18 23:01 Dose: 25 mg Enoxaparin Sodium (Lovenox) 30 mg SC DAILY [facility]; Protocol Last Admin: 06/20/18 10:01 Dose: 30 mg Famotidine (Pepcid) 20 mg PO HS [facility] Last Admin: 06/19/18 23:00 Dose: 20 mg Ferrous Gluconate (Fergon) 324 mg PO TID [facility] Last Admin: 06/20/18 12:28 Dose: 324 mg Furosemide (Lasix) 20 mg PO DAILY [facility] Last Admin: 06/20/18 10:02 Dose: 20 mg Glipizide (Glucotrol Xl) 5 mg PO ACBD [facility] Last Admin: 06/20/18 08:49 Dose: 5 mg Ceftaroline Fosamil 400 mg/ (Sodium Chloride) 100 mls @ 100 mls/hr IVPB Q12 [facility]; Protocol Stop: 06/27/18 22:01 Insulin Detemir (Levemir) 23 unit SC Q12 [facility] Last Admin: 06/20/18 10:02 Dose: 23 units Insulin Human Lispro (Humalog Med) 0 units SC ACHS [facility]; Protocol Last Admin: 06/20/18 12:54 Dose: 2 units Levothyroxine Sodium (Synthroid) 50 mcg PO 0600 [facility] Last Admin: 06/20/18 06:35 Dose: 50 mcg Losartan Potassium (Cozaar) 25 mg PO DAILY [facility] Last Admin: 06/20/18 09:55 Dose: Not Given Metoprolol Tartrate (Lopressor) 50 mg PO BID [facility] Last Admin: 06/20/18 09:55 Dose: Not Given Potassium Chloride (Klor-Con 10) 10 meq PO DAILY [facility] Last Admin: 06/20/18 10:02 Dose: 10 meq Quetiapine Fumarate (Seroquel) 25 mg PO HS [facility]; Protocol Last Admin: 06/19/18 22:55 Dose: Not Given Silver Sulfadiazine (Silvadene 1% 25 Gm) 0 gm TP DAILY [facility] Physical Exam - Constitutional Appears: Well, No Acute Distress - Head Exam Head Exam: ATRAUMATIC, NORMOCEPHALIC - Extremities Exam Additional comments: LE focused exam Vasc: DP/PT pulses faintly palpable 1/4 b/l. Skin temperature warm to warm from proximal to distal. Cap refill < 3 seconds to all digits b/l. Moderate edema diffusely. Erythema extending to the up to the mid-leg on the right side. Neuro: Epicritic and protective sensation grossly absent b/l Derm: Right heel - 5 cm x 5 cm x 0.2 cm posterior right heel non-stageable ulceration with Mild periwound erythema, wound bed is necroti black and covered with a membrane, minimal serous drainage, no malodor, no purulence, negative probe to bone, no tracking/tunneling/undermining noted. Erythema and hotness noted extending up to the right mid-leg Left heel- no wound to plantar heel at this time MSK: No POP to any ulceration site. ROM WNL at all major joints for age. MMT 4/5 in all major muscle groups. No other gross deformities noted - Neurological Exam Neurological exam: Alert, Oriented x3 - Psychiatric Exam Psychiatric exam: Normal Affect, Normal Mood Results - Vital Signs Recent Vital Signs: Last Vital Signs Temp 98 F 06/20/18 08:41 Pulse 72 06/20/18 09:55 Resp 20 06/20/18 08:41 BP 92/42 L 06/20/18 10:02 Pulse Ox 95 06/20/18 08:41 - Labs Result Diagrams: 06/19/18 20:00 06/19/18 20:00 Labs: Laboratory Results - last 24 hr 06/19/18 06/19/18 06/19/18 20:00 20:00 20:00 WBC 12.8 H D RBC 3.88 Hgb 12.2 Hct 37.4 MCV 96.4 MCH 31.4 MCHC 32.6 RDW 13.8 Plt Count 200 MPV 12.5 H Neut % (Auto) 76.2 H Lymph % (Auto) 13.5 L York % (Auto) 8.7 H Eos % (Auto) 1.4 L Baso % (Auto) 0.2 Lymph # (Auto) 1.7 York # (Auto) 1.1 H Eos # (Auto) 0.2 Baso # (Auto) 0.03 Absolute Neuts (auto) 9.78 H ESR PT 12.9 H INR 1.16 APTT 40.6 H Sodium 139 Potassium 4.6 Chloride 99 Carbon Dioxide 31 Anion Gap 14 BUN 39 H Creatinine 1.3 H Est GFR ( Amer) 48 Est GFR (Non-Af Amer) 39 POC Glucose (mg/dL) Random Glucose 256 H Calcium 9.4 Total Bilirubin 0.4 AST 43 H D ALT 25 Alkaline Phosphatase 213 H NT-Pro-B Natriuret Pep Total Protein 8.4 H Albumin 4.0 Globulin 4.4 Albumin/Globulin Ratio 0.9 L 06/19/18 06/19/18 06/20/18 20:00 21:24 06:37 WBC RBC Hgb Hct MCV MCH MCHC RDW Plt Count MPV Neut % (Auto) Lymph % (Auto) York % (Auto) Eos % (Auto) Baso % (Auto) Lymph # (Auto) York # (Auto) Eos # (Auto) Baso # (Auto) Absolute Neuts (auto) ESR PT INR APTT Sodium Potassium Chloride Carbon Dioxide Anion Gap BUN Creatinine Est GFR ( Amer) Est GFR (Non-Af Amer) POC Glucose (mg/dL) 279 H 134 H Random Glucose Calcium Total Bilirubin AST ALT Alkaline Phosphatase NT-Pro-B Natriuret Pep 503 H Total Protein Albumin Globulin Albumin/Globulin Ratio 06/20/18 10:30 WBC RBC Hgb Hct MCV MCH MCHC RDW Plt Count MPV Neut % (Auto) Lymph % (Auto) York % (Auto) Eos % (Auto) Baso % (Auto) Lymph # (Auto) York # (Auto) Eos # (Auto) Baso # (Auto) Absolute Neuts (auto) ESR 120 H PT INR APTT Sodium Potassium Chloride Carbon Dioxide Anion Gap BUN Creatinine Est GFR ( Amer) Est GFR (Non-Af Amer) POC Glucose (mg/dL) Random Glucose Calcium Total Bilirubin AST ALT Alkaline Phosphatase NT-Pro-B Natriuret Pep Total Protein Albumin Globulin Albumin/Globulin Ratio Assessment & Plan - Assessment and Plan (Free Text) Assessment: 82 year old F with PMH of CAD, HTN, DM2, Hypothyroidism, Hx falls, Insomnia, PAD, and previous amputations seen at bedside with Dr. Patterson for infected right heel ulcer. Plan: Patient seen and evaluated with attending Dr. Patterson Labs, vitals and charts reviewed; Afebrile, WBCs 12.8 R heel X-ray: no signs of osteomyelitis noted LE arterial duplex (10/25): Normal MCKENNA/PVR at rest R heel dressed with xeroform, DSD ESR: 120 SSD ointment ordered Wound Culture ordered Right foot MRI ordered, without contrast Multipodus boots to be worn at all times Continue abx per ID Infectious disease consult- recommendations appreciated PT consult to evaluate for bed to chair movement Ordered Hb A1c Podiatry will continue to follow while patient in house Thank you for the podiatry consult and allowing to take part in patient care - Date & Time Date: 06/20/18 Time: 13:16
--- NOTE | 2018-06-20 16:18 | CP.PCM.PCO ---
Physician Communication Note - Physician Communication Note Physician Communication Note: right heel cellulitis-TEflaro per I.D. MRI pending,wound care per podiatry
[2018-06-20] MEDS ORDERED: Vancomycin 1gm in NS 250ml 1 GM/250 ML BAG IVPB SCH (19:00)
--- NOTE | 2018-06-21 02:39 | PN ---
DATE: 06/20/2018 SUBJECTIVE: The patient is an 82-year-old, seen and examined, lying in bed, and seems to be comfortable. PHYSICAL EXAMINATION: VITAL SIGNS: She is afebrile, pulse 82, respirations , and blood pressure 140/65. LUNGS: Bilateral fair airflow. No rhonchi or crackles. HEART: S1 and S2 audible. ABDOMEN: Soft, obese, and nontender. No rebound. No guarding. NEUROLOGIC: She is awake and alert and able to communicate. EXTREMITIES: Right foot is in the dressing. LABORATORY DATA: ESR is 120. Chemistry; blood sugar is 172. CRP is more than 15. ASSESSMENT: 1. Right heel cellulitis, rule out osteomyelitis. 2. Noninsulin-dependent diabetes. 3. Hypertension. 4. Hyperlipidemia. 5. Being overweight. PLAN: MRI has been ordered to rule out osteomyelitis. The patient has been started on Teflaro. Blood cultures and urine cultures are negative. Wound cultures are pending. We will continue current medications. She is on DVT prophylaxis. She has been started on Teflaro as per ID. We will follow up the patient in a.m. We will follow up MRI in a.m. Liam Fernandez MD
[2018-06-21] MEDS: Levothyroxine 50 MCG TAB PO SCH (06:33)
[2018-06-21] MEDS: Insulin Lispro (humaLOG) MEDIUM Coverage SC SCH ×3 (08:08→17:18)
[2018-06-21] MEDS: Silver Sulfadiazine 1% Cream (25 gm) TP SCH (09:59)
[2018-06-21] MEDS: GlipiZIDE 5 mg SR Tab PO SCH ×2 (10:01→17:18)
[2018-06-21] MEDS: Insulin Detemir 100 units/ml Vial (Levemir) SC SCH ×2 (10:01→21:42)
[2018-06-21] MEDS: Potassium Chloride 10 mEq ER Tab PO SCH (10:02)
[2018-06-21] MEDS: Enoxaparin 30 mg Syringe SC SCH (10:02)
--- NOTE | 2018-06-21 10:09 | CP.PCM.PN ---
<Dipak Tenorio - Last Filed: 06/21/18 10:03> Subjective - Date & Time of Evaluation Date of Evaluation: 06/21/18 Time of Evaluation: 10:03 - Subjective Subjective: Podiatry Consult note: Dr. Owusu 82 year old F patient seen at bedside for infected right heel infected ulcer. She is AAO x 3 and NAD at time of visit. Patient state that the redness and swelling in her right LE went down. She denies any pain in her LLE. Denies any further pedal complaints at this time. Denies any acute overnight events. Denies any recent N/V/F/C/CP/SOB/D/posterior calf pain when squeezed. Objective - Vital Signs/Intake and Output Vital Signs (last 24 hours): Temp Pulse Resp BP Pulse Ox 97.7 F 66 18 94/56 L 96 06/21/18 07:55 06/21/18 07:55 06/21/18 07:55 06/21/18 07:55 06/21/18 07:55 Intake and Output: 06/21/18 06/21/18 06:59 18:59 Intake Total 120 Output Total 200 Balance -80 - Medications Medications: Current Medications Acetaminophen (Tylenol 325mg Tab) 650 mg PO Q6H PRN PRN Reason: Pain, moderate (4-7) Last Admin: 06/20/18 23:10 Dose: 650 mg Aspirin (Ecotrin) 81 mg PO DAILY [facility] Last Admin: 06/20/18 10:02 Dose: 81 mg Atorvastatin Calcium (Lipitor) 20 mg PO [facility] Last Admin: 06/20/18 23:11 Dose: 20 mg Diphenhydramine HCl (Benadryl) 25 mg PO Q6 PRN PRN Reason: Itching / Pruritus Last Admin: 06/19/18 23:01 Dose: 25 mg Enoxaparin Sodium (Lovenox) 30 mg SC DAILY [facility]; Protocol Last Admin: 06/20/18 10:01 Dose: 30 mg Famotidine (Pepcid) 20 mg PO HS [facility] Last Admin: 06/20/18 23:12 Dose: 20 mg Ferrous Gluconate (Fergon) 324 mg PO TID [facility] Last Admin: 06/20/18 17:44 Dose: 324 mg Furosemide (Lasix) 20 mg PO DAILY [facility] Last Admin: 06/20/18 10:02 Dose: 20 mg Glipizide (Glucotrol Xl) 5 mg PO ACBD [facility] Last Admin: 06/20/18 17:43 Dose: 5 mg Ceftaroline Fosamil 400 mg/ (Sodium Chloride) 100 mls @ 100 mls/hr IVPB Q12 [facility] ; Protocol Stop: 06/27/18 22:01 Last Admin: 06/20/18 23:12 Dose: 100 mls/hr Insulin Detemir (Levemir) 23 unit SC Q12 [facility] Last Admin: 06/20/18 23:42 Dose: 23 units Insulin Human Lispro (Humalog Med) 0 units SC ACHS [facility]; Protocol Last Admin: 06/21/18 08:08 Dose: Not Given Levothyroxine Sodium (Synthroid) 50 mcg PO 0600 [facility] Last Admin: 06/21/18 06:33 Dose: 50 mcg Losartan Potassium (Cozaar) 25 mg PO DAILY [facility] Last Admin: 06/21/18 09:58 Dose: Not Given Metoprolol Tartrate (Lopressor) 50 mg PO BID [facility] Last Admin: 06/21/18 09:58 Dose: Not Given Potassium Chloride (Klor-Con 10) 10 meq PO DAILY [facility] Last Admin: 06/20/18 10:02 Dose: 10 meq Quetiapine Fumarate (Seroquel) 25 mg PO HS [facility]; Protocol Last Admin: 06/20/18 23:11 Dose: 25 mg Silver Sulfadiazine (Silvadene 1% 25 Gm) 0 gm TP DAILY [facility] Last Admin: 06/21/18 09:59 Dose: Not Given - Labs Labs: 06/19/18 20:00 06/19/18 20:00 PT 12.9 SECONDS (9.4-12.5) H 06/19/18 20:00 INR 1.16 06/19/18 20:00 APTT 40.6 Seconds (26.9-38.3) H 06/19/18 20:00 - Constitutional Appears: Well, No Acute Distress - Head Exam Head Exam: ATRAUMATIC, NORMOCEPHALIC - Extremities Exam Additional comments: LE focused exam Vasc: DP/PT pulses faintly palpable 1/4 b/l. Skin temperature warm to warm from proximal to distal. Cap refill < 3 seconds to all digits b/l. Moderate edema diffusely. Erythema extending to the up to the mid-leg on the right side. Neuro: Epicritic and protective sensation grossly absent b/l Derm: Right heel - 5 cm x 5 cm x 0.2 cm posterior right heel non-stageable ulceration with fluctuation with Mild periwound erythema, wound bed is necroti black and covered with a membrane, minimal serous drainage, no malodor, no purulence, negative probe to bone, no tracking/tunneling/undermining noted. Erythema and hotness noted extending up to the right mid-leg Left heel- no wound to plantar heel at this time MSK: No POP to any ulceration site. ROM WNL at all major joints for age. MMT 4/5 in all major muscle groups. No other gross deformities noted - Neurological Exam Neurological Exam: Alert, Awake, Oriented x3 - Psychiatric Exam Psychiatric exam: Normal Affect, Normal Mood Assessment and Plan - Assessment and Plan (Free Text) Assessment: 82 year old F patient seen at bedside for infected right heel infected ulcer. Plan: Patient seen and evaluated Plan discussed with Dr. Owusu Labs, vitals and charts reviewed; Afebrile, WBCs 12.8 (06/20) R heel X-ray: no signs of osteomyelitis noted R foot MRI done: Pending official report R heel dressed with xeroform, DSD ESR: 120 SSD ointment to be added to the dressing starting tomorrow Wound Culture: Pending Multipodus boots to be worn at all times Continue abx per ID Infectious disease consult- recommendations appreciated PT consult to evaluate for bed to chair movement Hb A1c: 8.0 Podiatry will continue to follow while patient in house Thank you for the podiatry consult and allowing to take part in patient care <Robby Owusu - Last Filed: 06/21/18 10:52> Objective - Vital Signs/Intake and Output Vital Signs (last 24 hours): Temp Pulse Resp BP Pulse Ox 97.7 F 66 18 95/72 L 96 06/21/18 07:55 06/21/18 07:55 06/21/18 07:55 06/21/18 10:01 06/21/18 07:55 Intake and Output: 06/21/18 06/21/18 06:59 18:59 Intake Total 120 Output Total 200 Balance -80 - Medications Medications: Current Medications Acetaminophen (Tylenol 325mg Tab) 650 mg PO Q6H PRN PRN Reason: Pain, moderate (4-7) Last Admin: 06/20/18 23:10 Dose: 650 mg Aspirin (Ecotrin) 81 mg PO DAILY [facility] Last Admin: 06/21/18 10:01 Dose: 81 mg Atorvastatin Calcium (Lipitor) 20 mg PO HS [facility] Last Admin: 06/20/18 23:11 Dose: 20 mg Diphenhydramine HCl (Benadryl) 25 mg PO Q6 PRN PRN Reason: Itching / Pruritus Last Admin: 06/19/18 23:01 Dose: 25 mg Enoxaparin Sodium (Lovenox) 30 mg SC DAILY [facility]; Protocol Last Admin: 06/21/18 10:02 Dose: 30 mg Famotidine (Pepcid) 20 mg PO HS [facility] Last Admin: 06/20/18 23:12 Dose: 20 mg Ferrous Gluconate (Fergon) 324 mg PO TID [facility] Last Admin: 06/21/18 10:01 Dose: 324 mg Furosemide (Lasix) 20 mg PO DAILY [facility] Last Admin: 06/21/18 10:01 Dose: 20 mg Glipizide (Glucotrol Xl) 5 mg PO ACBD [facility] Last Admin: 06/21/18 10:01 Dose: 5 mg Ceftaroline Fosamil 400 mg/ (Sodium Chloride) 100 mls @ 100 mls/hr IVPB Q12 [facility]; Protocol Stop: 06/27/18 22:01 Last Admin: 06/21/18 10:02 Dose: 100 mls/hr Insulin Detemir (Levemir) 23 unit SC Q12 [facility] Last Admin: 06/21/18 10:01 Dose: 23 units Insulin Human Lispro (Humalog Med) 0 units SC ACHS [facility]; Protocol Last Admin: 06/21/18 08:08 Dose: Not Given Levothyroxine Sodium (Synthroid) 50 mcg PO 0600 [facility] Last Admin: 06/21/18 06:33 Dose: 50 mcg Losartan Potassium (Cozaar) 25 mg PO DAILY [facility] Last Admin: 06/21/18 09:58 Dose: Not Given Metoprolol Tartrate (Lopressor) 50 mg PO BID [facility] Last Admin: 06/21/18 09:58 Dose: Not Given Potassium Chloride (Klor-Con 10) 10 meq PO DAILY [facility] Last Admin: 06/21/18 10:02 Dose: 10 meq Quetiapine Fumarate (Seroquel) 25 mg PO HS [facility]; Protocol Last Admin: 06/20/18 23:11 Dose: 25 mg Silver Sulfadiazine (Silvadene 1% 25 Gm) 0 gm TP DAILY [facility] Last Admin: 06/21/18 09:59 Dose: Not Given - Labs Labs: 06/19/18 20:00 06/19/18 20:00 PT 12.9 SECONDS (9.4-12.5) H 06/19/18 20:00 INR 1.16 06/19/18 20:00 APTT 40.6 Seconds (26.9-38.3) H 06/19/18 20:00 Attending/Attestation - Attestation I have personally seen and examined this patient.: Yes I have fully participated in the care of the patient.: Yes I have reviewed all pertinent clinical information, including history, physical exam and plan: Yes
--- NOTE | 2018-06-21 12:02 | MRI ---
Date of service: 06/21/2018 PROCEDURE: MRI of the right foot without contrast HISTORY: infected ulcer posterior right heel COMPARISON: TECHNIQUE: MRI of the right foot was performed in multiple planes using multiple pulse sequences. FINDINGS: There is no evidence of marrow edema to suggest osteomyelitis. Chronic degenerative changes are seen with flattening of the plantar arch. There obliteration of the normal fat planes in the sinus tarsi. The Achilles tendon is intact. There is fluid in the tendon sheath around the flexor tendon of the big toe. This measures 8 x 19 mm. IMPRESSION: No evidence of osteomyelitis
[2018-06-21 12:10] LABS: HEMOGLOBIN 11.1 g/dL (12.0-16.0); MEAN CELL VOLUME 96.6 fl (80.0-105.0); MEAN CORPUSCULAR HEMOGLOBIN 31.1 pg (25.0-35.0); MEAN CORPUSCULAR HGB CONC 32.2 g/dl (31.0-37.0); MEAN PLATELET VOLUME 11.9 fl (7.0-11.0); RBC 3.57 10^6/uL (3.5-6.1); RED CELL DISTRIBUTION WIDTH 13.6 % (11.5-14.5); WHITE BLOOD COUNT 9.5 10^3/uL (4.5-11.0)
[2018-06-21 12:28] LABS: ALBUMIN 3.6 g/dL (3.0-4.8); CALCIUM 8.9 mg/dL (8.4-10.5)
--- NOTE | 2018-06-21 13:27 | CP.PCM.PN ---
<Paulo Duron - Last Filed: 06/21/18 13:23> Subjective - Date & Time of Evaluation Date of Evaluation: 06/21/18 Time of Evaluation: 08:25 - Subjective Subjective: Paulo Duron D.O. PGY-3, Internal Medicine Resident, Infectious Disease Progress Note 82-year-old female with a past medical history of diabetes mellitus, heart failure, hypothyroidism, who presents for a nonhealing right heel ulcer. Infect ious disease consultation was requested. Patient was seen and examined at bedside. States had issues getting PICC line yesterday. Hopeful that her MRI will be negative for osteomyelitis. Objective - Vital Signs/Intake and Output Vital Signs (last 24 hours): Temp Pulse Resp BP Pulse Ox 97.7 F 66 18 95/72 L 96 06/21/18 07:55 06/21/18 07:55 06/21/18 07:55 06/21/18 10:01 06/21/18 07:55 Intake and Output: 06/21/18 06/21/18 06:59 18:59 Intake Total 120 Output Total 200 Balance -80 - Medications Medications: Current Medications Acetaminophen (Tylenol 325mg Tab) 650 mg PO Q6H PRN PRN Reason: Pain, moderate (4-7) Last Admin: 06/20/18 23:10 Dose: 650 mg Aspirin (Ecotrin) 81 mg PO DAILY [facility] Last Admin: 06/21/18 10:01 Dose: 81 mg Atorvastatin Calcium (Lipitor) 20 mg PO HS [facility] Last Admin: 06/20/18 23:11 Dose: 20 mg Diphenhydramine HCl (Benadryl) 25 mg PO Q6 PRN PRN Reason: Itching / Pruritus Last Admin: 06/19/18 23:01 Dose: 25 mg Enoxaparin Sodium (Lovenox) 30 mg SC DAILY [facility]; Protocol Last Admin: 06/21/18 10:02 Dose: 30 mg Famotidine (Pepcid) 20 mg PO HS [facility] Last Admin: 06/20/18 23:12 Dose: 20 mg Ferrous Gluconate (Fergon) 324 mg PO TID [facility] Last Admin: 06/21/18 10:01 Dose: 324 mg Furosemide (Lasix) 20 mg PO DAILY [facility] Last Admin: 06/21/18 10:01 Dose: 20 mg Glipizide (Glucotrol Xl) 5 mg PO ACBD [facility] Last Admin: 06/21/18 10:01 Dose: 5 mg Ceftaroline Fosamil 400 mg/ (Sodium Chloride) 100 mls @ 100 mls/hr IVPB Q12 [facility]; Protocol Stop: 06/27/18 22:01 Last Admin: 06/21/18 10:02 Dose: 100 mls/hr Insulin Detemir (Levemir) 23 unit SC Q12 [facility] Last Admin: 06/21/18 10:01 Dose: 23 units Insulin Human Lispro (Humalog Med) 0 units SC ACHS [facility]; Protocol Last Admin: 06/21/18 11:29 Dose: Not Given Levothyroxine Sodium (Synthroid) 50 mcg PO 0600 [facility] Last Admin: 06/21/18 06:33 Dose: 50 mcg Losartan Potassium (Cozaar) 25 mg PO DAILY [facility] Last Admin: 06/21/18 09:58 Dose: Not Given Metoprolol Tartrate (Lopressor) 50 mg PO BID [facility] Last Admin: 06/21/18 09:58 Dose: Not Given Potassium Chloride (Klor-Con 10) 10 meq PO DAILY [facility] Last Admin: 06/21/18 10:02 Dose: 10 meq Quetiapine Fumarate (Seroquel) 25 mg PO HS [facility]; Protocol Last Admin: 06/20/18 23:11 Dose: 25 mg Silver Sulfadiazine (Silvadene 1% 25 Gm) 0 gm TP DAILY [facility] Last Admin: 06/21/18 09:59 Dose: Not Given - Labs Labs: 06/21/18 12:00 06/21/18 12:00 PT 12.9 SECONDS (9.4-12.5) H 06/19/18 20:00 INR 1.16 06/19/18 20:00 APTT 40.6 Seconds (26.9-38.3) H 06/19/18 20:00 - Constitutional Appears: Non-toxic, No Acute Distress, Obese - Head Exam Head Exam: ATRAUMATIC, NORMOCEPHALIC - Eye Exam Eye Exam: absent: Scleral icterus - ENT Exam ENT Exam: Mucous Membranes Moist, Normal Oropharynx - Neck Exam Neck exam: Positive for: Normal Inspection - Respiratory Exam Respiratory Exam: Clear to Auscultation Bilateral. absent: Rhonchi, Wheezes - Cardiovascular Exam Cardiovascular Exam: RRR, +S1, +S2. absent: Rubs - GI/Abdominal Exam GI & Abdominal Exam: Normal Bowel Sounds, Soft. absent: Tenderness - Extremities Exam Extremities exam: right heel with wrapping, mild drainage, somewhat malodorous - Neurological Exam Neurological exam: Alert, Awake - Psychiatric Exam Psychiatric exam: Normal Affect, Normal Mood - Skin Skin Exam: Dry, Warm Assessment and Plan - Assessment and Plan (Free Text) Assessment: 82-year-old female with a past medical history of diabetes mellitus, heart failure, hypothyroidism, who presents for a nonhealing right heel ulcer. Infectious disease consultation was requested. 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 Afebrile Leukocytosis resolved ESR and CRP elevated, however MRI does not show osteomyelitis Blood culture negative / day 1 WCx showing staph Continue teflaro day 2 Discussed with nursing We will follow with you Patient was seen and examined and case to be discussed at length with attending physician Thank you for the pleasure participating in the care of this interesting patient <Clay Oneill - Last Filed: 06/21/18 18:12> Objective - Vital Signs/Intake and Output Vital Signs (last 24 hours): Temp Pulse Resp BP Pulse Ox 98.4 F 84 18 127/70 94 L 06/21/18 17:41 06/21/18 17:41 06/21/18 17:41 06/21/18 17:41 06/21/18 17:41 Intake and Output: 06/21/18 06/21/18 06:59 18:59 Intake Total 120 Output Total 200 Balance -80 - Medications Medications: Current Medications Acetaminophen (Tylenol 325mg Tab) 650 mg PO Q6H PRN PRN Reason: Pain, moderate (4-7) Last Admin: 06/20/18 23:10 Dose: 650 mg Amoxicillin/Clavulanate Potassium (Augmentin 875 Mg-125 Mg Tab) 1 tab PO Q12 [facility]; Protocol Stop: 06/26/18 22:01 Aspirin (Ecotrin) 81 mg PO DAILY [facility] Last Admin: 06/21/18 10:01 Dose: 81 mg Atorvastatin Calcium (Lipitor) 20 mg PO HS [facility] Last Admin: 06/20/18 23:11 Dose: 20 mg Diphenhydramine HCl (Benadryl) 25 mg PO Q6 PRN PRN Reason: Itching / Pruritus Last Admin: 06/19/18 23:01 Dose: 25 mg Doxycycline Hyclate (Doryx) 100 mg PO Q12 [facility]; Protocol Stop: 06/26/18 22:01 Enoxaparin Sodium (Lovenox) 30 mg SC DAILY [facility]; Protocol Last Admin: 06/21/18 10:02 Dose: 30 mg Famotidine (Pepcid) 20 mg PO HS [facility] Last Admin: 06/20/18 23:12 Dose: 20 mg Ferrous Gluconate (Fergon) 324 mg PO TID [facility] Last Admin: 06/21/18 17:18 Dose: 324 mg Furosemide (Lasix) 20 mg PO DAILY [facility] Last Admin: 06/21/18 10:01 Dose: 20 mg Glipizide (Glucotrol Xl) 5 mg PO ACBD [facility] Last Admin: 06/21/18 17:18 Dose: 5 mg Insulin Detemir (Levemir) 23 unit SC Q12 [facility] Last Admin: 06/21/18 10:01 Dose: 23 units Insulin Human Lispro (Humalog Med) 0 units SC ACHS [facility]; Protocol Last Admin: 06/21/18 17:18 Dose: 3 units Levothyroxine Sodium (Synthroid) 50 mcg PO 0600 [facility] Last Admin: 06/21/18 06:33 Dose: 50 mcg Losartan Potassium (Cozaar) 25 mg PO DAILY [facility] Last Admin: 06/21/18 09:58 Dose: Not Given Metoprolol Tartrate (Lopressor) 50 mg PO BID [facility] Last Admin: 06/21/18 17:18 Dose: 50 mg Potassium Chloride (Klor-Con 10) 10 meq PO DAILY [facility] Last Admin: 06/21/18 10:02 Dose: 10 meq Quetiapine Fumarate (Seroquel) 25 mg PO HS [facility]; Protocol Last Admin: 06/20/18 23:11 Dose: 25 mg Silver Sulfadiazine (Silvadene 1% 25 Gm) 0 gm TP DAILY [facility] Last Admin: 06/21/18 09:59 Dose: Not Given - Labs Labs: 06/21/18 12:00 06/21/18 12:00 PT 12.9 SECONDS (9.4-12.5) H 06/19/18 20:00 INR 1.16 06/19/18 20:00 APTT 40.6 Seconds (26.9-38.3) H 06/19/18 20:00 Attending/Attestation - Attestation I have personally seen and examined this patient.: Yes I have fully participated in the care of the patient.: Yes I have reviewed all pertinent clinical information, including history, physical exam and plan: Yes
[2018-06-21] MEDS ORDERED: Amoxicillin-Clav 875-125 mg Tab PO SCH (22:00)
--- NOTE | 2018-06-21 23:38 | PN ---
DATE: 06/21/2018 SUBJECTIVE: The patient is an 82 years old, seen and examined, doing very well, complaining of having multiple bruising on the right upper arm after she was attempted to have midline, just went for MRI, awaiting for result. PHYSICAL EXAMINATION: GENERAL: Otherwise, he is awake and alert. Able to communicate. VITAL SIGNS: She is afebrile, pulse 84, respirations 18, and blood pressure 127/70. LUNGS: Bilateral fair airflow. No rhonchi or crackles. HEART: S1 and S2 audible. ABDOMEN: Soft, nontender, and obese. No hepatosplenomegaly. NEUROLOGIC: She is awake and alert, able to communicate. LABORATORY DATA: WBC is 9.5, hemoglobin 11.1, hematocrit 34.5, and platelets 193. Chemistry; sodium 140, potassium 4.5, chloride 104, CO2 of 28, BUN of 32, creatinine 1.2, and blood sugar of 251. Heel ulcer growing Staphylococcus aureus, sensitivity to follow. Blood cultures are negative. ASSESSMENT: 1. Right heel ulcer. 2. Peripheral vascular disease. 3. Hypertension. 4. Hyperlipidemia. 5. Status post multiple toe amputations in the past. PLAN: MRI of the foot is negative for osteomyelitis, so plan is the patient will need IV antibiotics, probably to be treated as cellulitis. Request for TCU evaluation. To complete her course of antibiotics. Probably, she is going to need 10 to 14 days of antibiotics. We will discuss with Dr. Oneill if we need to put a PICC line or she will respond to the above. Liam Fernandez MD
[2018-06-22] MEDS: Insulin Lispro (humaLOG) MEDIUM Coverage SC SCH ×5 (00:15→21:32)
[2018-06-22] MEDS: Levothyroxine 50 MCG TAB PO SCH (05:31)
[2018-06-22] MEDS: GlipiZIDE 5 mg SR Tab PO SCH ×2 (07:29→17:48)
[2018-06-22] MEDS: Insulin Detemir 100 units/ml Vial (Levemir) SC SCH ×2 (09:59→21:48)
[2018-06-22] MEDS: Potassium Chloride 10 mEq ER Tab PO SCH (10:00)
[2018-06-22] MEDS: Enoxaparin 30 mg Syringe SC SCH (10:00)
[2018-06-22] MEDS: Silver Sulfadiazine 1% Cream (25 gm) TP SCH (10:01)
--- NOTE | 2018-06-22 10:56 | CP.PCM.PN ---
Subjective - Date & Time of Evaluation Date of Evaluation: 06/22/18 Time of Evaluation: 10:50 - Subjective Subjective: Podiatry Consult note for Drs. Patterson/Umer, 82 year old female patient seen at bedside this AM with Dr. Patterson for infected right heel infected ulcer. She is AAO x 3 and NAD at time of visit. Patient seen to be resting in bed with Multipodus boots in place. She denies any pain in her LLE. Denies any further pedal complaints at this time. Denies any acute overnight events. Denies any recent N/V/F/C/CP/SOB/D/posterior calf pain when squeezed. Objective - Vital Signs/Intake and Output Vital Signs (last 24 hours): Temp Pulse Resp BP Pulse Ox 97.4 F L 67 20 115/56 L 99 06/22/18 08:51 06/22/18 08:51 06/22/18 08:51 06/22/18 10:00 06/22/18 08:51 Intake and Output: 06/22/18 06/22/18 06:59 18:59 Intake Total 180 Output Total 100 Balance 80 - Medications Medications: Current Medications Acetaminophen (Tylenol 325mg Tab) 650 mg PO Q6H PRN PRN Reason: Pain, moderate (4-7) Last Admin: 06/21/18 21:55 Dose: 650 mg Aspirin (Ecotrin) 81 mg PO DAILY [facility] Last Admin: 06/22/18 10:00 Dose: 81 mg Atorvastatin Calcium (Lipitor) 20 mg PO [facility] Last Admin: 06/21/18 21:43 Dose: 20 mg Diphenhydramine HCl (Benadryl) 25 mg PO Q6 PRN PRN Reason: Itching / Pruritus Last Admin: 06/19/18 23:01 Dose: 25 mg Enoxaparin Sodium (Lovenox) 30 mg SC DAILY [facility]; Protocol Last Admin: 06/22/18 10:00 Dose: 30 mg Famotidine (Pepcid) 20 mg PO HS [facility] Last Admin: 06/21/18 21:43 Dose: 20 mg Ferrous Gluconate (Fergon) 324 mg PO TID [facility] Last Admin: 06/22/18 10:00 Dose: 324 mg Furosemide (Lasix) 20 mg PO DAILY [facility] Last Admin: 06/22/18 10:00 Dose: 20 mg Glipizide (Glucotrol Xl) 5 mg PO ACBD [facility] Last Admin: 06/22/18 07:29 Dose: Not Given Ceftaroline Fosamil 400 mg/ (Sodium Chloride) 100 mls @ 100 mls/hr IVPB Q12 [facility]; Protocol Stop: 06/26/18 22:01 Last Admin: 06/22/18 10:01 Dose: 100 mls/hr Insulin Detemir (Levemir) 23 unit SC Q12 [facility] Last Admin: 06/22/18 09:59 Dose: 23 units Insulin Human Lispro (Humalog Med) 0 units SC ACHS [facility]; Protocol Last Admin: 06/22/18 07:28 Dose: Not Given Levothyroxine Sodium (Synthroid) 50 mcg PO 0600 [facility] Last Admin: 06/22/18 05:31 Dose: 50 mcg Losartan Potassium (Cozaar) 25 mg PO DAILY [facility] Last Admin: 06/22/18 10:02 Dose: Not Given Metoprolol Tartrate (Lopressor) 50 mg PO BID [facility] Last Admin: 06/22/18 10:01 Dose: Not Given Potassium Chloride (Klor-Con 10) 10 meq PO DAILY [facility] Last Admin: 06/22/18 10:00 Dose: 10 meq Quetiapine Fumarate (Seroquel) 25 mg PO HS [facility]; Protocol Last Admin: 06/21/18 21:44 Dose: 25 mg Silver Sulfadiazine (Silvadene 1% 25 Gm) 0 gm TP DAILY [facility] Last Admin: 06/22/18 10:01 Dose: Not Given - Labs Labs: 06/21/18 12:00 06/21/18 12:00 PT 12.9 SECONDS (9.4-12.5) H 06/19/18 20:00 INR 1.16 06/19/18 20:00 APTT 40.6 Seconds (26.9-38.3) H 06/19/18 20:00 - Constitutional Appears: Well, Non-toxic, No Acute Distress - Head Exam Head Exam: ATRAUMATIC, NORMOCEPHALIC - Extremities Exam Additional comments: LE focused exam Vasc: DP/PT pulses faintly palpable 1/4 b/l. Skin temperature warm to warm from proximal to distal. Cap refill < 3 seconds to all digits b/l. Moderate edema diffusely. Erythema extending to the up to the mid-leg on the right side. Neuro: Epicritic and protective sensation grossly absent b/l Derm: Right heel - 5 cm x 5 cm x 0.2 cm posterior right heel non-stageable ulceration with fluctuation, mild periwound erythema, wound bed is necrotic and covered with a membrane, minimal serous drainage, no malodor, negative probe to bone, no tracking/tunneling/undermining noted. Erythema noted extending to the right mid- leg Left heel- no wound to plantar heel at this time MSK: No POP to any ulceration site. ROM WNL at all major joints for age. MMT 4/5 in all major muscle groups. No other gross deformities noted - Neurological Exam Neurological Exam: Alert, Awake, Oriented x3 - Psychiatric Exam Psychiatric exam: Normal Affect, Normal Mood Assessment and Plan - Assessment and Plan (Free Text) Assessment: 82 year old female patient seen at bedside for infected right heel infected ulcer Plan: Patient seen and evaluated with Dr. Patterson Plan discussed with Dr. Patterson Labs, vitals and charts reviewed; Afebrile, WBCs 9.5 (06/21/18) R heel X-ray: no signs of osteomyelitis noted R foot MRI done: no evidence of osteomyelitis Wound Culture: Staph Aureus HbA1c: 8.0 Patient wound punctured with sterile instruments to drain fluctuant area- 1-2 cc of pus expressed, no tunneling or tracking noted Wound was flushed and dressed with xeroform, DSD Multipodus boots to be worn at all times Continue abx per Infectious Disease, recommendations were appreciated Continue Physical therapy Recommend transferred to TCU for further rehabilitation and IV Abx Podiatry will continue to follow while patient in house
--- NOTE | 2018-06-22 13:43 | PN ---
DATE: 06/22/2018 SUBJECTIVE: The patient is 82 years old, seen and examined, doing well. No nausea or vomiting. No diarrhea. PHYSICAL EXAMINATION VITAL SIGNS: She is afebrile, pulse 67, respirations 20 and blood pressure 115/56. LUNGS: Bilateral fair airflow. No rhonchi or crackles. HEART: S1 and S2, audible. ABDOMEN: Soft and nontender. No rebound. No guarding. NEUROLOGIC: The patient is awake and alert, able to communicate. EXTREMITIES: Bilateral legs, no edema. LABORATORY DATA: WBC 9.5, hemoglobin 11, hematocrit 34.5 and platelets of 193. Chemistry; sodium 140, potassium 4.4, chloride 104, CO2 of 28, BUN 32, creatinine 1.2 and blood sugar of 123. MRI of the foot is negative for osteomyelitis. Wound is growing Staphylococcus aureus that is showing methicillin-resistant Staphylococcus aureus. The patient was given p.o. Zyvox previously that caused thrombocytopenia. She is resistant to tetracycline. ASSESSMENT 1. Right heel ulcer. 2. Hypertension. 3. Hyperlipidemia. 4. Insulin-dependent diabetes. PLAN: Since sensitivity is available, we will ask to decide which antibiotic has to be given according to that. She might be a candidate for TCU. TCU evaluation has been requested and physical therapy evaluation has been requested and once accepted, the patient can be transferred to TCU. Liam Fernandez MD
--- NOTE | 2018-06-22 13:45 | CP.PCM.APN ---
Subjective - Date & Time of Evaluation Date of Evaluation: 06/22/18 Time of Evaluation: 10:00 - Subjective Subjective: Pt. seen and examined, sitting up in chair, denied pain to foot, right leg, denied dyspnea. Objective - Vital Signs/Intake and Output Vital Signs (last 24 hours): Temp Pulse Resp BP Pulse Ox 97.4 F L 67 20 115/56 L 99 06/22/18 08:51 06/22/18 08:51 06/22/18 08:51 06/22/18 10:00 06/22/18 08:51 Intake and Output: 06/22/18 06/22/18 06:59 18:59 Intake Total 180 Output Total 100 Balance 80 - Medications Medications: Current Medications Acetaminophen (Tylenol 325mg Tab) 650 mg PO Q6H PRN PRN Reason: Pain, moderate (4-7) Last Admin: 06/21/18 21:55 Dose: 650 mg Aspirin (Ecotrin) 81 mg PO DAILY [facility] Last Admin: 06/22/18 10:00 Dose: 81 mg Atorvastatin Calcium (Lipitor) 20 mg PO [facility] Last Admin: 06/21/18 21:43 Dose: 20 mg Diphenhydramine HCl (Benadryl) 25 mg PO Q6 PRN PRN Reason: Itching / Pruritus Last Admin: 06/19/18 23:01 Dose: 25 mg Enoxaparin Sodium (Lovenox) 30 mg SC DAILY [facility]; Protocol Last Admin: 06/22/18 10:00 Dose: 30 mg Famotidine (Pepcid) 20 mg PO [facility] Last Admin: 06/21/18 21:43 Dose: 20 mg Ferrous Gluconate (Fergon) 324 mg PO DAILY [facility] Furosemide (Lasix) 20 mg PO DAILY [facility] Last Admin: 06/22/18 10:00 Dose: 20 mg Glipizide (Glucotrol Xl) 5 mg PO ACBD [facility] Last Admin: 06/22/18 07:29 Dose: Not Given Ceftaroline Fosamil 400 mg/ (Sodium Chloride) 100 mls @ 100 mls/hr IVPB Q12 [facility]; Protocol Stop: 06/26/18 22:01 Last Admin: 06/22/18 10:01 Dose: 100 mls/hr Insulin Detemir (Levemir) 23 unit SC Q12 [facility] Last Admin: 06/22/18 09:59 Dose: 23 units Insulin Human Lispro (Humalog Med) 0 units SC [facility]; Protocol Last Admin: 06/22/18 11:29 Dose: Not Given Levothyroxine Sodium (Synthroid) 50 mcg PO 0600 [facility] Last Admin: 06/22/18 05:31 Dose: 50 mcg Losartan Potassium (Cozaar) 25 mg PO DAILY [facility] Last Admin: 06/22/18 10:02 Dose: Not Given Metoprolol Tartrate (Lopressor) 50 mg PO BID [facility] Last Admin: 06/22/18 10:01 Dose: Not Given Potassium Chloride (Klor-Con 10) 10 meq PO DAILY [facility] Last Admin: 06/22/18 10:00 Dose: 10 meq Quetiapine Fumarate (Seroquel) 25 mg PO HS [facility]; Protocol Last Admin: 06/21/18 21:44 Dose: 25 mg Silver Sulfadiazine (Silvadene 1% 25 Gm) 0 gm TP DAILY [facility] Last Admin: 06/22/18 10:01 Dose: Not Given - Labs Labs: 06/21/18 12:00 06/21/18 12:00 PT 12.9 SECONDS (9.4-12.5) H 06/19/18 20:00 INR 1.16 06/19/18 20:00 APTT 40.6 Seconds (26.9-38.3) H 06/19/18 20:00 - Constitutional Appears: Well, Non-toxic - Head Exam Head Exam: NORMOCEPHALIC - Eye Exam Eye Exam: Normal appearance - ENT Exam ENT Exam: Mucous Membranes Moist, Normal Exam - Neck Exam Neck Exam: Full ROM - Respiratory Exam Respiratory Exam: Clear to Ausculation Bilateral - Cardiovascular Exam Cardiovascular Exam: REGULAR RHYTHM - GI/Abdominal Exam GI & Abdominal Exam: Soft - Rectal Exam Rectal Exam: Deferred - Exam Exam: absent: Circumcision, NORMAL INSPECTION, Scrotal Swelling, Testicular Tenderness, Uretheral Discharge, Testicular Vertical Lie, Bladder Distension External exam: absent: Ecchymosis, Erythema, Lacerations, Lesions, NORMAL EXTERNAL EXAM, Swelling Speculum exam: absent: Cervical Discharge, Erythema, Foreign Body, Laceration, NORMAL SPECULUM EXAM, Tissue, Vaginal Bleeding, Vaginal Discharge Bimanual exam: absent: Adenexal Mass, Adnexal, Cervical Motion Tendernes, NORMAL BIMANUAL EXAM, Uterine Enlargement, Uterine Tenderness - Extremities Exam Extremities Exam: Pedal Edema - Back Exam Back Exam: NORMAL INSPECTION - Neurological Exam Neurological Exam: Alert, Awake, Oriented x3 - Skin Additional comments: ulcer to right heel Assessment and Plan - Assessment and Plan (Free Text) Assessment: Microbiology 06/19/18 20:00 Skin - Foot Gram Stain - Final 06/19/18 20:00 Skin - Foot Wound Culture - Final Methicillin Resistant S Aureus 06/19/18 20:30 Blood Blood Culture - Preliminary NO GROWTH AFTER 48 HOURS 06/19/18 19:50 Blood Blood Culture - Preliminary NO GROWTH AFTER 48 HOURS ITS Impressions Chest X-Ray 06/19/18 19:12 IMPRESSION: No active disease. Foot X-Ray 06/19/18 19:13 IMPRESSION: No plain radiographic evidence of osteomyelitis. Foot MRI 06/21/18 08:15 IMPRESSION: No evidence of osteomyelitis Assessment: 82-year-old female with past medical history of diabetes, hypothyroidism, CHF presents to the emergency room for possible infection to the right heel. Patient's states that she saw her [employer] Dr. Patterson today who advised her admssion for IV antibiotics, with I.D. consulted. Plan: 1. Cellulitis of right foot/ heel Antibiotics per I.D. wound cx- resulted MRSA wound care per podiatry. PT recommends Tcu Discussed with PMD, consultants, Likely plan TCU for tommorow, will continue to monitor clinical status and follow closely
--- NOTE | 2018-06-22 14:45 | CP.PCM.PN ---
<Paulo Duron - Last Filed: 06/22/18 14:41> Subjective - Date & Time of Evaluation Date of Evaluation: 06/22/18 Time of Evaluation: 07:55 - Subjective Subjective: Paulo Duron D.O. PGY-3, Internal Medicine Resident, Infectious Disease Progress Note 82-year-old female with a past medical history of diabetes mellitus, heart failure, hypothyroidism, who presents for a nonhealing right heel ulcer. Infect ious disease consultation was requested. Patient was seen and examined at bedside. Using commode. States having loose stools every time she uses commode, [place] 5-6. Objective - Vital Signs/Intake and Output Vital Signs (last 24 hours): Temp Pulse Resp BP Pulse Ox 97.4 F L 67 20 115/56 L 99 06/22/18 08:51 06/22/18 08:51 06/22/18 08:51 06/22/18 10:00 06/22/18 08:51 Intake and Output: 06/22/18 06/22/18 06:59 18:59 Intake Total 180 Output Total 100 Balance 80 - Medications Medications: Current Medications Acetaminophen (Tylenol 325mg Tab) 650 mg PO Q6H PRN PRN Reason: Pain, moderate (4-7) Last Admin: 06/21/18 21:55 Dose: 650 mg Aspirin (Ecotrin) 81 mg PO DAILY ON [facility] OF [facility] Last Admin: 06/22/18 10:00 Dose: 81 mg Atorvastatin Calcium (Lipitor) 20 mg PO HS [facility] Last Admin: 06/21/18 21:43 Dose: 20 mg Diphenhydramine HCl (Benadryl) 25 mg PO Q6 PRN PRN Reason: Itching / Pruritus Last Admin: 06/19/18 23:01 Dose: 25 mg Enoxaparin Sodium (Lovenox) 30 mg SC DAILY ON [facility] OF [facility]; Protocol Last Admin: 06/22/18 10:00 Dose: 30 mg Famotidine (Pepcid) 20 mg PO HS [facility] Last Admin: 06/21/18 21:43 Dose: 20 mg Ferrous Gluconate (Fergon) 324 mg PO DAILY [facility] Furosemide (Lasix) 20 mg PO DAILY [facility] Last Admin: 06/22/18 10:00 Dose: 20 mg Glipizide (Glucotrol Xl) 5 mg PO ACBD ON [facility] OF [facility] Last Admin: 06/22/18 07:29 Dose: Not Given Ceftaroline Fosamil 400 mg/ (Sodium Chloride) 100 mls @ 100 mls/hr IVPB Q12 ON [facility] OF [facility]; Protocol Stop: 06/26/18 22:01 Last Admin: 06/22/18 10:01 Dose: 100 mls/hr Insulin Detemir (Levemir) 23 unit SC Q12 ON [facility] OF [facility] Last Admin: 06/22/18 09:59 Dose: 23 units Insulin Human Lispro (Humalog Med) 0 units SC ACHS ON [facility] OF [facility]; Protocol Last Admin: 06/22/18 11:29 Dose: Not Given Levothyroxine Sodium (Synthroid) 50 mcg PO 0600 ON [facility] OF [facility] Last Admin: 06/22/18 05:31 Dose: 50 mcg Losartan Potassium (Cozaar) 25 mg PO DAILY ON [facility] Last Admin: 06/22/18 10:02 Dose: Not Given Metoprolol Tartrate (Lopressor) 50 mg PO BID ON [facility] OF [facility] Last Admin: 06/22/18 10:01 Dose: Not Given Potassium Chloride (Klor-Con 10) 10 meq PO DAILY ON [facility] OF [facility] Last Admin: 06/22/18 10:00 Dose: 10 meq Quetiapine Fumarate (Seroquel) 25 mg PO HS ON [facility] OF [facility]; Protocol Last Admin: 06/21/18 21:44 Dose: 25 mg Silver Sulfadiazine (Silvadene 1% 25 Gm) 0 gm TP DAILY ON [facility] OF [facility] Last Admin: 06/22/18 10:01 Dose: Not Given - Labs Labs: 06/21/18 12:00 06/21/18 12:00 PT 12.9 SECONDS (9.4-12.5) H 06/19/18 20:00 INR 1.16 06/19/18 20:00 APTT 40.6 Seconds (26.9-38.3) H 06/19/18 20:00 - Constitutional Appears: Non-toxic, No Acute Distress, Obese - Head Exam Head Exam: ATRAUMATIC, NORMOCEPHALIC - Eye Exam Eye Exam: absent: Scleral icterus - ENT Exam ENT Exam: Mucous Membranes Moist, Normal Oropharynx - Neck Exam Neck exam: Positive for: Normal Inspection - Respiratory Exam Respiratory Exam: Clear to Auscultation Bilateral. absent: Rhonchi, Wheezes - Cardiovascular Exam Cardiovascular Exam: RRR, +S1, +S2. absent: Rubs - GI/Abdominal Exam GI & Abdominal Exam: Normal Bowel Sounds, Soft. absent: Tenderness - Extremities Exam Extremities exam: right heel with wrapped - Neurological Exam Neurological exam: Alert, Awake - Psychiatric Exam Psychiatric exam: Normal Affect, Normal Mood - Skin Skin Exam: Dry, Warm Assessment and Plan - Assessment and Plan (Free Text) Assessment: 82-year-old female with a past medical history of diabetes mellitus, heart failure, hypothyroidism, who presents for a nonhealing right heel ulcer. Infectious disease consultation was requested. 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 Continues to be afebrile with no leukocytosis Blood culture negative 2/2 day 2 WCx grew MRSA Ok to continue teflaro day 3 Can change to doxy for 5-7 days if discharged Discussed with nursing We will follow with you Patient was seen and examined and case to be discussed at length with attending physician Thank you for the pleasure participating in the care of this interesting patient <Clay Oneill - Last Filed: 06/22/18 16:53> Objective - Vital Signs/Intake and Output Vital Signs (last 24 hours): Temp Pulse Resp BP Pulse Ox 97.2 F L 72 20 109/49 L 97 06/22/18 16:45 06/22/18 16:45 06/22/18 16:45 06/22/18 16:45 06/22/18 16:45 Intake and Output: 06/22/18 06/22/18 06:59 18:59 Intake Total 180 Output Total 100 Balance 80 - Medications Medications: Current Medications Acetaminophen (Tylenol 325mg Tab) 650 mg PO Q6H PRN PRN Reason: Pain, moderate (4-7) Last Admin: 06/21/18 21:55 Dose: 650 mg Aspirin (Ecotrin) 81 mg PO DAILY ON [facility] Last Admin: 06/22/18 10:00 Dose: 81 mg Atorvastatin Calcium (Lipitor) 20 mg PO HS [facility] Last Admin: 06/21/18 21:43 Dose: 20 mg Diphenhydramine HCl (Benadryl) 25 mg PO Q6 PRN PRN Reason: Itching / Pruritus Last Admin: 06/19/18 23:01 Dose: 25 mg Enoxaparin Sodium (Lovenox) 30 mg SC DAILY ON [facility]; Protocol Last Admin: 06/22/18 10:00 Dose: 30 mg Famotidine (Pepcid) 20 mg PO HS [facility] Last Admin: 06/21/18 21:43 Dose: 20 mg Ferrous Gluconate (Fergon) 324 mg PO DAILY [facility] Furosemide (Lasix) 20 mg PO DAILY [facility] Last Admin: 06/22/18 10:00 Dose: 20 mg Glipizide (Glucotrol Xl) 5 mg PO ACBD [facility] Last Admin: 06/22/18 07:29 Dose: Not Given Ceftaroline Fosamil 400 mg/ (Sodium Chloride) 100 mls @ 100 mls/hr IVPB Q12 [facility]; Protocol Stop: 06/26/18 22:01 Last Admin: 06/22/18 10:01 Dose: 100 mls/hr Insulin Detemir (Levemir) 23 unit SC Q12 [facility] Last Admin: 06/22/18 09:59 Dose: 23 units Insulin Human Lispro (Humalog Med) 0 units SC ACHS [facility]; Protocol Last Admin: 06/22/18 16:41 Dose: Not Given Levothyroxine Sodium (Synthroid) 50 mcg PO 0600 ON [facility] Last Admin: 06/22/18 05:31 Dose: 50 mcg Losartan Potassium (Cozaar) 25 mg PO DAILY [facility] Last Admin: 06/22/18 10:02 Dose: Not Given Metoprolol Tartrate (Lopressor) 50 mg PO BID ON [facility] Last Admin: 06/22/18 10:01 Dose: Not Given Potassium Chloride (Klor-Con 10) 10 meq PO DAILY ON [facility] Last Admin: 06/22/18 10:00 Dose: 10 meq Quetiapine Fumarate (Seroquel) 25 mg PO HS ON [facility]; Protocol Last Admin: 06/21/18 21:44 Dose: 25 mg Silver Sulfadiazine (Silvadene 1% 25 Gm) 0 gm TP DAILY ON [facility] Last Admin: 06/22/18 10:01 Dose: Not Given - Labs Labs: 06/21/18 12:00 06/21/18 12:00 PT 12.9 SECONDS (9.4-12.5) H 06/19/18 20:00 INR 1.16 06/19/18 20:00 APTT 40.6 Seconds (26.9-38.3) H 06/19/18 20:00 Attending/Attestation - Attestation I have personally seen and examined this patient.: Yes I have fully participated in the care of the patient.: Yes I have reviewed all pertinent clinical information, including history, physical exam and plan: Yes
[2018-06-23] MEDS: Levothyroxine 50 MCG TAB PO SCH (05:12)
[2018-06-23] MEDS: GlipiZIDE 5 mg SR Tab PO SCH ×2 (08:43→17:50)
[2018-06-23] MEDS: Insulin Lispro (humaLOG) MEDIUM Coverage SC SCH ×3 (08:43→17:50)
[2018-06-23] MEDS: Potassium Chloride 10 mEq ER Tab PO SCH (10:02)
[2018-06-23] MEDS: Enoxaparin 30 mg Syringe SC SCH (10:04)
[2018-06-23] MEDS: Insulin Detemir 100 units/ml Vial (Levemir) SC SCH (10:05)
--- NOTE | 2018-06-23 10:19 | CP.PCM.PN ---
<Shanna Jane - Last Filed: 06/23/18 10:18> Subjective - Date & Time of Evaluation Date of Evaluation: 06/23/18 Time of Evaluation: 10:18 - Subjective Subjective: Podiatry Consult note for Drs. Patterson/Umer, 82 year old female patient seen at bedside this AM with Dr. Owusu for infected right heel infected ulcer. She is AAO x 3 and NAD at time of visit. Patient seen to be resting in bed with Multipodus boots in place. She denies any pain in her LLE. Denies any further pedal complaints at this time. Denies any acute overni ght events. Denies any recent N/V/F/C/CP/SOB/D/posterior calf pain when squeezed. Objective - Vital Signs/Intake and Output Vital Signs (last 24 hours): Temp Pulse Resp BP Pulse Ox 97.8 F 81 18 133/68 95 06/23/18 06:00 06/23/18 10:04 06/23/18 06:00 06/23/18 10:04 06/23/18 06:00 Intake and Output: 06/23/18 06/23/18 06:59 18:59 Intake Total 1400 Output Total 1600 Balance -200 - Medications Medications: Current Medications Acetaminophen (Tylenol 325mg Tab) 650 mg PO Q6H PRN PRN Reason: Pain, moderate (4-7) Last Admin: 06/21/18 21:55 Dose: 650 mg Aspirin (Ecotrin) 81 mg PO DAILY [facility] Last Admin: 06/23/18 10:04 Dose: 81 mg Atorvastatin Calcium (Lipitor) 20 mg PO [facility] Last Admin: 06/22/18 21:49 Dose: 20 mg Diphenhydramine HCl (Benadryl) 25 mg PO Q6 PRN PRN Reason: Itching / Pruritus Last Admin: 06/22/18 21:49 Dose: 25 mg Enoxaparin Sodium (Lovenox) 30 mg SC DAILY [facility]; Protocol Last Admin: 06/23/18 10:04 Dose: 30 mg Famotidine (Pepcid) 20 mg PO [facility] Last Admin: 06/22/18 21:48 Dose: 20 mg Ferrous Gluconate (Fergon) 324 mg PO DAILY [facility] Last Admin: 06/23/18 10:03 Dose: 324 mg Furosemide (Lasix) 20 mg PO DAILY [facility] Last Admin: 06/23/18 10:04 Dose: 20 mg Glipizide (Glucotrol Xl) 5 mg PO ACBD [facility] Last Admin: 06/23/18 08:43 Dose: 5 mg Ceftaroline Fosamil 400 mg/ (Sodium Chloride) 100 mls @ 100 mls/hr IVPB Q12 [facility]; Protocol Stop: 06/26/18 22:01 Last Admin: 06/23/18 10:05 Dose: 100 mls/hr Insulin Detemir (Levemir) 23 unit SC Q12 [facility] Last Admin: 06/23/18 10:05 Dose: 23 units Insulin Human Lispro (Humalog Med) 0 units SC ACHS [facility]; Protocol Last Admin: 06/23/18 08:43 Dose: 3 units Levothyroxine Sodium (Synthroid) 50 mcg PO 0600 [facility] Last Admin: 06/23/18 05:12 Dose: 50 mcg Losartan Potassium (Cozaar) 25 mg PO DAILY [facility] Last Admin: 06/23/18 10:03 Dose: 25 mg Metoprolol Tartrate (Lopressor) 50 mg PO BID [facility] Last Admin: 06/23/18 10:04 Dose: 50 mg Potassium Chloride (Klor-Con 10) 10 meq PO DAILY [facility] Last Admin: 06/23/18 10:02 Dose: 10 meq Quetiapine Fumarate (Seroquel) 25 mg PO HS [facility]; Protocol Last Admin: 06/22/18 21:49 Dose: 25 mg Silver Sulfadiazine (Silvadene 1% 25 Gm) 0 gm TP DAILY [facility] Last Admin: 06/22/18 10:01 Dose: Not Given - Labs Labs: 06/21/18 12:00 06/21/18 12:00 PT 12.9 SECONDS (9.4-12.5) H 06/19/18 20:00 INR 1.16 06/19/18 20:00 APTT 40.6 Seconds (26.9-38.3) H 06/19/18 20:00 - Constitutional Appears: Well, Non-toxic, No Acute Distress - Head Exam Head Exam: ATRAUMATIC, NORMOCEPHALIC - Extremities Exam Additional comments: LE focused exam Vasc: DP/PT pulses faintly palpable 1/4 b/l. Skin temperature warm to warm from proximal to distal. Cap refill < 3 seconds to all digits b/l. Moderate edema diffusely. Erythema extending to the up to the mid-leg on the right side. Neuro: Epicritic and protective sensation grossly absent b/l Derm: Right heel - 5 cm x 5 cm x 0.2 cm posterior right heel non-stageable ulceration with fluctuation, mild periwound erythema, wound bed is necrotic and covered with a membrane, minimal serous drainage, no malodor, negative probe to bone, no tracking/tunneling/undermining noted. Erythema noted extending to the right mid- leg Left heel- no wound to plantar heel at this time MSK: No POP to any ulceration site. ROM WNL at all major joints for age. MMT 4/5 in all major muscle groups. No other gross deformities noted - Neurological Exam Neurological Exam: Alert, Awake, Oriented x3 - Psychiatric Exam Psychiatric exam: Normal Affect, Normal Mood Assessment and Plan - Assessment and Plan (Free Text) Assessment: 82 year old female patient seen at bedside for infected right heel infected ulcer Plan: Patient seen and evaluated with Dr. Owusu Plan discussed with Dr. Owusu Labs, vitals and charts reviewed; Afebrile, WBCs 9.5 (06/21/18) R heel X-ray: no signs of osteomyelitis noted R foot MRI done: no evidence of osteomyelitis Wound Culture: MRSA HbA1c: 8.0 Wound was flushed and dressed with xeroform, DSD Multipodus boots to be worn at all times Continue abx per Infectious Disease, recommendations were appreciated Continue Physical therapy Recommend transferred to TCU for further rehabilitation and IV Abx Podiatry will continue to follow while patient in house <Robby Owusu - Last Filed: 06/24/18 07:29> Objective - Vital Signs/Intake and Output Vital Signs (last 24 hours): Temp Pulse Resp BP Pulse Ox 98.2 F 69 20 92/43 L 96 06/23/18 18:00 06/23/18 18:00 06/23/18 18:00 06/23/18 18:00 06/23/18 18:00 Intake and Output: 06/24/18 06/24/18 06:59 18:59 Intake Total 1340 Output Total 200 Balance 1140 - Labs Labs: 06/23/18 11:10 06/23/18 11:10 PT 12.9 SECONDS (9.4-12.5) H 06/19/18 20:00 INR 1.16 06/19/18 20:00 APTT 40.6 Seconds (26.9-38.3) H 06/19/18 20:00 Attending/Attestation - Attestation I have personally seen and examined this patient.: Yes I have fully participated in the care of the patient.: Yes I have reviewed all pertinent clinical information, including history, physical exam and plan: Yes
[2018-06-23 11:20] LABS: HEMOGLOBIN 10.6 g/dL (12.0-16.0); MEAN CELL VOLUME 96.5 fl (80.0-105.0); MEAN CORPUSCULAR HEMOGLOBIN 30.7 pg (25.0-35.0); MEAN CORPUSCULAR HGB CONC 31.8 g/dl (31.0-37.0); MEAN PLATELET VOLUME 11.8 fl (7.0-11.0); RBC 3.45 10^6/uL (3.5-6.1); RED CELL DISTRIBUTION WIDTH 13.4 % (11.5-14.5); WHITE BLOOD COUNT 7.8 10^3/uL (4.5-11.0)
[2018-06-23 11:44] LABS: ALBUMIN 3.4 g/dL (3.0-4.8); CALCIUM 8.7 mg/dL (8.4-10.5)
--- NOTE | 2018-06-23 15:24 | CP.PCM.PN ---
<Paulo Duron - Last Filed: 06/23/18 15:21> Subjective - Date & Time of Evaluation Date of Evaluation: 06/23/18 Time of Evaluation: 09:40 - Subjective Subjective: Paulo Duron D.O. PGY-3, Internal Medicine Resident, Infectious Disease Progress Note 82-year-old female with a past medical history of diabetes mellitus, heart failure, hypothyroidism, who presents for a nonhealing right heel ulcer. Infect ious disease consultation was requested. Patient was seen and examined at bedside. Pleasant as always. Concerned about her ulcer. States eager to start therapy. Objective - Vital Signs/Intake and Output Vital Signs (last 24 hours): Temp Pulse Resp BP Pulse Ox 97.8 F 81 18 133/68 95 06/23/18 06:00 06/23/18 10:04 06/23/18 06:00 06/23/18 10:04 06/23/18 06:00 Intake and Output: 06/23/18 06/23/18 06:59 18:59 Intake Total 1400 Output Total 1600 Balance -200 - Medications Medications: Current Medications Acetaminophen (Tylenol 325mg Tab) 650 mg PO Q6H PRN PRN Reason: Pain, moderate (4-7) Last Admin: 06/21/18 21:55 Dose: 650 mg Aspirin (Ecotrin) 81 mg PO DAILY [facility] Last Admin: 06/23/18 10:04 Dose: 81 mg Atorvastatin Calcium (Lipitor) 20 mg PO HS [facility] Last Admin: 06/22/18 21:49 Dose: 20 mg Diphenhydramine HCl (Benadryl) 25 mg PO Q6 PRN PRN Reason: Itching / Pruritus Last Admin: 06/22/18 21:49 Dose: 25 mg Enoxaparin Sodium (Lovenox) 30 mg SC DAILY [facility]; Protocol Last Admin: 06/23/18 10:04 Dose: 30 mg Famotidine (Pepcid) 20 mg PO HS [facility] Last Admin: 06/22/18 21:48 Dose: 20 mg Ferrous Gluconate (Fergon) 324 mg PO DAILY [facility] Last Admin: 06/23/18 10:03 Dose: 324 mg Furosemide (Lasix) 20 mg PO DAILY [facility] Last Admin: 06/23/18 10:04 Dose: 20 mg Glipizide (Glucotrol Xl) 5 mg PO ACBD [facility] Last Admin: 06/23/18 08:43 Dose: 5 mg Doxycycline Hyclate 100 mg/ (Sodium Chloride) 100 mls @ 100 mls/hr IVPB Q12 [facility]; Protocol Insulin Detemir (Levemir) 23 unit SC Q12 [facility] Last Admin: 06/23/18 10:05 Dose: 23 units Insulin Human Lispro (Humalog Med) 0 units SC ACHS [facility]; Protocol Last Admin: 06/23/18 11:30 Dose: 5 units Levothyroxine Sodium (Synthroid) 50 mcg PO 0600 [facility] Last Admin: 06/23/18 05:12 Dose: 50 mcg Losartan Potassium (Cozaar) 25 mg PO DAILY [facility] Last Admin: 06/23/18 10:03 Dose: 25 mg Metoprolol Tartrate (Lopressor) 50 mg PO BID [facility] Last Admin: 06/23/18 10:04 Dose: 50 mg Potassium Chloride (Klor-Con 10) 10 meq PO DAILY [facility] Last Admin: 06/23/18 10:02 Dose: 10 meq Quetiapine Fumarate (Seroquel) 25 mg PO HS [facility]; Protocol Last Admin: 06/22/18 21:49 Dose: 25 mg Silver Sulfadiazine (Silvadene 1% 25 Gm) 0 gm TP DAILY [facility] Last Admin: 06/22/18 10:01 Dose: Not Given - Labs Labs: 06/23/18 11:10 06/23/18 11:10 PT 12.9 SECONDS (9.4-12.5) H 06/19/18 20:00 INR 1.16 06/19/18 20:00 APTT 40.6 Seconds (26.9-38.3) H 06/19/18 20:00 - Constitutional Appears: Non-toxic, No Acute Distress, Obese - Head Exam Head Exam: ATRAUMATIC, NORMOCEPHALIC - Eye Exam Eye Exam: absent: Scleral icterus - ENT Exam ENT Exam: Mucous Membranes Moist, Normal Oropharynx - Neck Exam Neck exam: Positive for: Normal Inspection - Respiratory Exam Respiratory Exam: Clear to Auscultation Bilateral. absent: Rhonchi, Wheezes - Cardiovascular Exam Cardiovascular Exam: RRR, +S1, +S2. absent: Rubs - GI/Abdominal Exam GI & Abdominal Exam: Normal Bowel Sounds, Soft. absent: Tenderness - Extremities Exam Extremities exam: right heel with wrapped - Neurological Exam Neurological exam: Alert, Awake, Oriented x4 - Psychiatric Exam Psychiatric exam: Normal Affect, Normal Mood - Skin Skin Exam: Dry, Warm Assessment and Plan - Assessment and Plan (Free Text) Assessment: 82-year-old female with a past medical history of diabetes mellitus, heart failure, hypothyroidism, who presents for a nonhealing right heel ulcer. I nfectious disease consultation was requested. 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 Jane's note reviewed and appreciated Discussed with nursing staff We will follow alongside you Patient was seen and examined and case to be discussed at length with attending physician Thank you for the pleasure participating in the care of this interesting patient <Clay Oneill - Last Filed: 06/23/18 16:48> Objective - Vital Signs/Intake and Output Vital Signs (last 24 hours): Temp Pulse Resp BP Pulse Ox 97.8 F 81 18 133/68 95 06/23/18 06:00 06/23/18 10:04 06/23/18 06:00 06/23/18 10:04 06/23/18 06:00 Intake and Output: 06/23/18 06/23/18 06:59 18:59 Intake Total 1400 Output Total 1600 Balance -200 - Medications Medications: Current Medications Acetaminophen (Tylenol 325mg Tab) 650 mg PO Q6H PRN PRN Reason: Pain, moderate (4-7) Last Admin: 06/21/18 21:55 Dose: 650 mg Aspirin (Ecotrin) 81 mg PO DAILY [facility] Last Admin: 06/23/18 10:04 Dose: 81 mg Atorvastatin Calcium (Lipitor) 20 mg PO HS [facility] Last Admin: 06/22/18 21:49 Dose: 20 mg Diphenhydramine HCl (Benadryl) 25 mg PO Q6 PRN PRN Reason: Itching / Pruritus Last Admin: 06/22/18 21:49 Dose: 25 mg Enoxaparin Sodium (Lovenox) 30 mg SC DAILY [facility]; Protocol Last Admin: 06/23/18 10:04 Dose: 30 mg Famotidine (Pepcid) 20 mg PO HS [facility] Last Admin: 06/22/18 21:48 Dose: 20 mg Ferrous Gluconate (Fergon) 324 mg PO DAILY [facility] Last Admin: 06/23/18 10:03 Dose: 324 mg Furosemide (Lasix) 20 mg PO DAILY [facility] Last Admin: 06/23/18 10:04 Dose: 20 mg Glipizide (Glucotrol Xl) 5 mg PO ACBD [facility] Last Admin: 06/23/18 08:43 Dose: 5 mg Doxycycline Hyclate 100 mg/ (Sodium Chloride) 100 mls @ 100 mls/hr IVPB Q12 [facility]; Protocol Insulin Detemir (Levemir) 23 unit SC Q12 [facility] Last Admin: 06/23/18 10:05 Dose: 23 units Insulin Human Lispro (Humalog Med) 0 units SC ACHS [facility]; Protocol Last Admin: 06/23/18 11:30 Dose: 5 units Levothyroxine Sodium (Synthroid) 50 mcg PO 0600 [facility] Last Admin: 06/23/18 05:12 Dose: 50 mcg Losartan Potassium (Cozaar) 25 mg PO DAILY [facility] Last Admin: 06/23/18 10:03 Dose: 25 mg Metoprolol Tartrate (Lopressor) 50 mg PO BID [facility] Last Admin: 06/23/18 10:04 Dose: 50 mg Potassium Chloride (Klor-Con 10) 10 meq PO DAILY [facility] Last Admin: 06/23/18 10:02 Dose: 10 meq Quetiapine Fumarate (Seroquel) 25 mg PO HS [facility]; Protocol Last Admin: 06/22/18 21:49 Dose: 25 mg Silver Sulfadiazine (Silvadene 1% 25 Gm) 0 gm TP DAILY [facility] Last Admin: 06/22/18 10:01 Dose: Not Given - Labs Labs: 06/23/18 11:10 06/23/18 11:10 PT 12.9 SECONDS (9.4-12.5) H 06/19/18 20:00 INR 1.16 06/19/18 20:00 APTT 40.6 Seconds (26.9-38.3) H 06/19/18 20:00 Attending/Attestation - Attestation I have personally seen and examined this patient.: Yes I have fully participated in the care of the patient.: Yes I have reviewed all pertinent clinical information, including history, physical exam and plan: Yes
[2018-06-23 17:51] VITALS: BP 92/43; PULSE 69
[2018-06-23 19:09] VITALS: RESP 20; TEMP 98.2; O2SAT 96
--- NOTE | 2018-06-23 21:54 | DS ---
HISTORY OF PRESENT ILLNESS: The patient is an 82-year-old who was sent by Dr. Patterson to emergency room because of her right heel ulcer that she has been watching and got worse. The patient was started on IV antibiotic, local wound care was started. The patient had MRI of the foot done, negative for osteomyelitis has been on Teflaro initially. Blood culture came out positive for MRSA. Currently on IV doxycycline. Wound is being done by Podiatry team. PHYSICAL EXAMINATION: GENERAL: The patient is awake and alert, able to communicate. VITAL SIGNS: She is afebrile, pulse 69, respirations 20, blood pressure 92/43. LUNGS: Bilateral fair airflow. No rhonchi or crackle. HEART: S1, S2 audible. ABDOMEN: Soft, nontender. No rebound. No guarding. NEUROLOGIC: The patient is awake and alert, able to communicate. EXTREMITIES: Bilateral leg no edema. Right heel is in dressing. LABORATORY DATA: WBC 7.8, hemoglobin 10.6, hematocrit 33.3, platelet 207. Chemistry: Sodium 138, potassium 4.5, chloride 104, CO2 of 27, BUN 30, creatinine 1.3, blood sugar 235. Wound culture positive for MRSA. ASSESSMENT: 1. Right heel ulcer wound positive for methicillin-resistant Staphylococcus aureus. MRI negative for osteomyelitis. 2. Noninsulin-dependent diabetes. 3. Hypertension. 4. Hyperlipidemia. 5. Peripheral vascular disease. 6. Status post left second toe amputation. PLAN: The patient is being transferred to TCU. She will remain on IV doxycycline. Wound care will be done by Dr. Patterson and Dr. Owusu. Will monitor blood sugar and will followup the patient in TCU. Liam Fernandez MD
== END 2018-06-23 19:16 | DRG 638 ==
LOC: ED 18:20 → ERH 21:32 → 3RSO 21:58
PROVIDERS: ADMIT Internal Medicine; ATTEND Internal Medicine
DX: E11.621 Type 2 diabetes mellitus with foot ulcer (principal); L03.115 Cellulitis of right lower limb; L97.413 Non-pressure chronic ulcer of right heel and midfoot with necrosis of muscle; B95.62 Methicillin resistant Staphylococcus aureus infection as the cause of diseases classified elsewhere; E11.51 Type 2 diabetes mellitus with diabetic peripheral angiopathy without gangrene; E11.42 Type 2 diabetes mellitus with diabetic polyneuropathy; I11.0 Hypertensive heart disease with heart failure; I50.9 Heart failure, unspecified; I25.10 Atherosclerotic heart disease of native coronary artery without angina pectoris; E03.9 Hypothyroidism, unspecified; M19.90 Unspecified osteoarthritis, unspecified site; E78.5 Hyperlipidemia, unspecified; E66.9 Obesity, unspecified; Z68.36 Body mass index [BMI] 36.0-36.9, adult; Z89.412 Acquired absence of left great toe; Z79.4 Long term (current) use of insulin; Z89.421 Acquired absence of other right toe(s); Z79.82 Long term (current) use of aspirin; Z88.0 Allergy status to penicillin

== ENCOUNTER 2018-06-23 19:16 | Inpatient (IN) | payer OTHER ==
[2018-06-23] MEDS ORDERED: Non Formulary Medication (Doxycycline Hyclate [Vibramycin] 100 MG) IVPB SCH (22:00)
[2018-06-23] MEDS: Insulin Detemir 100 units/ml Vial (Levemir) SC SCH (22:59)
[2018-06-23] MEDS: Insulin Lispro (humaLOG) MEDIUM Coverage SC SCH (23:40)
[2018-06-24] MEDS: Enoxaparin 30 mg Syringe SC SCH (05:41)
[2018-06-24] MEDS: Levothyroxine 50 MCG TAB PO SCH (05:41)
[2018-06-24] MEDS: Insulin Lispro (humaLOG) MEDIUM Coverage SC SCH ×4 (06:43→21:43)
--- NOTE | 2018-06-24 09:23 | CP.PCM.PN ---
<Connie Timmons - Last Filed: 06/24/18 09:24> Subjective - Date & Time of Evaluation Date of Evaluation: 06/24/18 Time of Evaluation: 09:23 - Subjective Subjective: Podiatry progress note: Dr. Owusu 82 year old female patient seen and examined in TCU with Dr. Owusu for R heel ulceration. Patient resting comfortably and in NAD. Denies any acute events overnight. She denies any pain to her right ulceration at this time. Denies nausea/vomiting/fever/shortness of breath. Objective - Vital Signs/Intake and Output Vital Signs (last 24 hours): Temp Pulse Resp BP Pulse Ox 98.3 F 68 18 117/59 L 06/23/18 22:42 06/23/18 22:42 06/23/18 22:42 06/23/18 22:42 - Medications Medications: Current Medications Acetaminophen (Tylenol 325mg Tab) 650 mg PO Q6H PRN; Protocol PRN Reason: Pain, moderate (4-7) Last Admin: 06/23/18 23:02 Dose: 650 mg Aspirin (Ecotrin) 81 mg PO DAILY MAAME; Protocol Atorvastatin Calcium (Lipitor) 20 mg PO HS MAAME; Protocol Last Admin: 06/23/18 22:57 Dose: 20 mg Diphenhydramine HCl (Benadryl) 25 mg PO Q6 PRN; Protocol PRN Reason: Itching / Pruritus Enoxaparin Sodium (Lovenox) 30 mg SC 0600 MAAME; Protocol Last Admin: 06/24/18 05:41 Dose: 30 mg Famotidine (Pepcid) 20 mg PO HS MAAME; Protocol Last Admin: 06/23/18 22:57 Dose: 20 mg Ferrous Gluconate (Fergon) 324 mg PO DAILY MAAME; Protocol Furosemide (Lasix) 20 mg PO DAILY MAAME; Protocol Glipizide (Glucotrol Xl) 5 mg PO ACBD MAAME; Protocol Doxycycline Hyclate 100 mg/ (Sodium Chloride) 100 mls @ 100 mls/hr IVPB Q12 MAAME Last Admin: 06/23/18 22:58 Dose: 100 mls/hr Insulin Detemir (Levemir) 23 unit SC Q12 MAAME; Protocol Last Admin: 06/23/18 22:59 Dose: 23 units Insulin Human Lispro (Humalog Med) 0 units SC ACHS MAAME; Protocol Last Admin: 04/06/19 06:43 Dose: Not Given Levothyroxine Sodium (Synthroid) 50 mcg PO 0600 MAAME; Protocol Last Admin: 06/24/18 05:41 Dose: 50 mcg Losartan Potassium (Cozaar) 25 mg PO DAILY MAAME; Protocol Metoprolol Tartrate (Lopressor) 50 mg PO BID MAAME; Protocol Potassium Chloride (Klor-Con 10) 10 meq PO DAILY MAAME; Protocol Quetiapine Fumarate (Seroquel) 25 mg PO HS MAAME; Protocol Last Admin: 06/23/18 22:59 Dose: 25 mg Silver Sulfadiazine (Silvadene 1% 25 Gm) 0 gm TP DAILY MAAME; Protocol - Constitutional Appears: Non-toxic, No Acute Distress - Head Exam Head Exam: ATRAUMATIC, NORMOCEPHALIC - Extremities Exam Additional comments: LE focused exam Vasc: DP/PT pulses faintly palpable 1/4 b/l. Skin temperature warm to warm from proximal to distal. Cap refill < 3 seconds to all digits b/l. Moderate edema diffusely. Erythema extending to the up to the mid-leg on the right side. Neuro: Epicritic and protective sensation grossly absent b/l Derm: Right heel - 5 cm x 5 cm x 0.2 cm posterior right heel non-stageable ulceration with fluctuation, mild periwound erythema, wound bed is necrotic and covered with a membrane, minimal serous drainage, no malodor, negative probe to bone, no tracking/tunneling/undermining noted. Erythema noted extending to the right mid- leg Left heel- no wound to plantar heel at this time MSK: No POP to any ulceration site. ROM WNL at all major joints for age. MMT 4/5 in all major muscle groups. No other gross deformities noted - Neurological Exam Neurological Exam: Alert, Awake, Oriented x3 - Psychiatric Exam Psychiatric exam: Normal Affect, Normal Mood Assessment and Plan - Assessment and Plan (Free Text) Assessment: 82 year old female patient with right heel ulceration Plan: Patient seen and evaluated with Dr. Owusu Afebrile, WBCs 9.5, HbA1C 8.0 (06/21/18) R heel X-ray: no signs of osteomyelitis noted R foot MRI done: no evidence of osteomyelitis Wound Culture: MRSA Local wound care; Wound was flushed and dressed with xeroform, DSD Multipodus boots to be worn at all times C/W IV abx C/w Physical therapy Will continue to follow while patient in house <Robby Owusu - Last Filed: 06/27/18 07:55> Objective - Vital Signs/Intake and Output Vital Signs (last 24 hours): Temp Pulse Resp BP Pulse Ox 98.1 F 50 L 18 90/50 L 96 06/27/18 06:00 06/27/18 06:00 06/27/18 06:00 06/27/18 06:00 06/27/18 06:00 - Medications Medications: Current Medications Acetaminophen (Tylenol 325mg Tab) 650 mg PO Q6H PRN; Protocol PRN Reason: Pain, moderate (4-7) Last Admin: 06/26/18 22:47 Dose: 650 mg Ascorbic Acid (Vitamin C 500 Mg Tab) 500 mg PO DAILY MAAME Last Admin: 06/26/18 10:50 Dose: 500 mg Aspirin (Ecotrin) 81 mg PO 0800 MAAME; Protocol Atorvastatin Calcium (Lipitor) 20 mg PO HS MAAME; Protocol Last Admin: 06/26/18 21:13 Dose: 20 mg Diphenhydramine HCl (Benadryl) 25 mg PO Q6 PRN; Protocol PRN Reason: Itching / Pruritus Last Admin: 06/26/18 21:13 Dose: 25 mg Enoxaparin Sodium (Lovenox) 30 mg SC 0600 MAAME; Protocol Last Admin: 06/27/18 06:19 Dose: 30 mg Famotidine (Pepcid) 20 mg PO HS MAAME; Protocol Last Admin: 06/26/18 21:13 Dose: 20 mg Ferrous Gluconate (Fergon) 324 mg PO DAILY MAAME; Protocol Last Admin: 06/26/18 10:48 Dose: 324 mg Furosemide (Lasix) 20 mg PO DAILY MAAME; Protocol Last Admin: 06/26/18 11:00 Dose: 20 mg Glipizide (Glucotrol Xl) 5 mg PO ACBD MAAME; Protocol Last Admin: 06/26/18 17:10 Dose: 5 mg Doxycycline Hyclate 100 mg/ (Sodium Chloride) 100 mls @ 100 mls/hr IVPB Q12 MAAME Last Admin: 06/26/18 21:14 Dose: 100 mls/hr Insulin Detemir (Levemir) 23 unit SC Q12 MAAME; Protocol Last Admin: 06/26/18 22:46 Dose: 23 units Insulin Human Lispro (Humalog Med) 0 units SC ACHS MAAME; Protocol Last Admin: 06/27/18 06:53 Dose: 1 units Levothyroxine Sodium (Synthroid) 50 mcg PO 0600 MAAME; Protocol Last Admin: 06/27/18 06:20 Dose: 50 mcg Losartan Potassium (Cozaar) 25 mg PO DAILY MAAME; Protocol Last Admin: 06/26/18 12:05 Dose: Not Given Metoprolol Tartrate (Lopressor) 50 mg PO 0800,1700 MAAME; Protocol Multivitamins (Thera Tab) 1 tab PO 0800 MAAME Last Admin: 06/26/18 10:45 Dose: 1 tab Potassium Chloride (Klor-Con 10) 10 meq PO 0800 MAAME; Protocol Quetiapine Fumarate (Seroquel) 25 mg PO HS MAAME; Protocol Last Admin: 06/26/18 21:14 Dose: 25 mg Silver Sulfadiazine (Silvadene 1% 25 Gm) 0 gm TP DAILY MAAME; Protocol Last Admin: 06/26/18 10:50 Dose: Not Given Attending/Attestation - Attestation I have personally seen and examined this patient.: Yes I have fully participated in the care of the patient.: Yes I have reviewed all pertinent clinical information, including history, physical exam and plan: Yes
[2018-06-24] MEDS: Potassium Chloride 10 mEq ER Tab PO SCH (09:33)
[2018-06-24] MEDS: GlipiZIDE 5 mg SR Tab PO SCH ×2 (09:33→17:29)
[2018-06-24] MEDS: Insulin Detemir 100 units/ml Vial (Levemir) SC SCH ×2 (09:34→21:35)
[2018-06-24] MEDS: Silver Sulfadiazine 1% Cream (25 gm) TP SCH (09:35)
--- NOTE | 2018-06-24 12:01 | CP.PCM.CON ---
History of Present Illness - History of Present Illness History of Present Illness: 82 year old female with PMH of obesity with BMI 37, osteoarthritis, HTN, DM, hypothyroidism, S/P left toe amputation, S/P right hip surgery, history of right foot osteomyelitis initially came in to [facility] because of non-healing right heel ulcer. It grew MRSA like before. Wound care is being rendered by Podiatry. MRI of the foot did not reveal osteomyelitis. She has been doing well with antibiotics and wound care and is now transferrred to [facility] for continued medical therapy and physical rehab. Infectious Diseases consult is requested to continue her antibiotic care. She has no fever or chills, no nausea or vomiting, no abdominal pain, no SOB at rest, no increased pain in the right foot, no diarrhea. Review of Systems - Review of Systems All systems: reviewed and no additional remarkable complaints except (as per HPI) Past Patient History - Infectious Disease Hx of Infectious Diseases: None - Tetanus Immunizations Tetanus Immunization: Unknown - Past Medical History & Family History Past Medical History?: Yes - Past Social History Smoking Status: Never Smoked - CARDIAC Hx Cardiac Disorders: Yes Hx Congestive Heart Failure: Yes Hx Hypertension: Yes - PULMONARY Hx Respiratory Disorders: No - NEUROLOGICAL Hx Neurological Disorder: Yes (PHERIPHERAL NEUROPATHY) - HEENT Hx HEENT Problems: Yes Hx Cataracts: Yes - RENAL Hx Chronic Kidney Disease: No - ENDOCRINE/METABOLIC Hx Diabetes Mellitus Type 2: Yes Hx Hypothyroidism: Yes - HEMATOLOGICAL/ONCOLOGICAL Hx Blood Disorders: No - INTEGUMENTARY Hx Dermatological Problems: Yes Other/Comment: L GREAT TOE AND RIGHT 2ND TOE AMPUATED. - MUSCULOSKELETAL/RHEUMATOLOGICAL Hx Falls: Yes - GASTROINTESTINAL Hx Gastrointestinal Disorders: No - GENITOURINARY/GYNECOLOGICAL Hx Reproductive Disorders: No - PSYCHIATRIC Hx Psychophysiologic Disorder: No Hx Substance Use: No - SURGICAL HISTORY Hx Surgeries: Yes Hx Amputation: Yes Hx Orthopedic Surgery: Yes (toe amputations) Other/Comment: carpal tunnel. R hip marisol - ANESTHESIA Hx Anesthesia: Yes Hx Anesthesia Reactions: No Hx Malignant Hyperthermia: No Meds Allergies/Adverse Reactions: Allergies Allergy/AdvReac Type Severity Reaction Status Date / Time Penicillins Allergy Intermediate ITCHING Verified 06/19/18 18:46 - Medications Medications: Current Medications Acetaminophen (Tylenol 325mg Tab) 650 mg PO Q6H PRN; Protocol PRN Reason: Pain, moderate (4-7) Last Admin: 06/23/18 23:02 Dose: 650 mg Aspirin (Ecotrin) 81 mg PO DAILY MAAME; Protocol Atorvastatin Calcium (Lipitor) 20 mg PO HS MAAME; Protocol Last Admin: 06/23/18 22:57 Dose: 20 mg Diphenhydramine HCl (Benadryl) 25 mg PO Q6 PRN; Protocol PRN Reason: Itching / Pruritus Enoxaparin Sodium (Lovenox) 30 mg SC 0600 MAAME; Protocol Last Admin: 06/24/18 05:41 Dose: 30 mg Famotidine (Pepcid) 20 mg PO HS MAAME; Protocol Last Admin: 06/23/18 22:57 Dose: 20 mg Ferrous Gluconate (Fergon) 324 mg PO DAILY MAAME; Protocol Furosemide (Lasix) 20 mg PO DAILY MAAME; Protocol Glipizide (Glucotrol Xl) 5 mg PO ACBD MAAME; Protocol Doxycycline Hyclate 100 mg/ (Sodium Chloride) 100 mls @ 100 mls/hr IVPB Q12 MAAME Last Admin: 06/23/18 22:58 Dose: 100 mls/hr Insulin Detemir (Levemir) 23 unit SC Q12 MAAME; Protocol Last Admin: 06/23/18 22:59 Dose: 23 units Insulin Human Lispro (Humalog Med) 0 units SC ACHS MAAME; Protocol Last Admin: 06/24/18 06:43 Dose: Not Given Levothyroxine Sodium (Synthroid) 50 mcg PO 0600 MAAME; Protocol Last Admin: 06/24/18 05:41 Dose: 50 mcg Losartan Potassium (Cozaar) 25 mg PO DAILY MAAME; Protocol Metoprolol Tartrate (Lopressor) 50 mg PO BID MAAME; Protocol Potassium Chloride (Klor-Con 10) 10 meq PO DAILY MAAME; Protocol Quetiapine Fumarate (Seroquel) 25 mg PO HS MAAME; Protocol Last Admin: 06/23/18 22:59 Dose: 25 mg Silver Sulfadiazine (Silvadene 1% 25 Gm) 0 gm TP DAILY MAAME; Protocol Physical Exam - Constitutional Appears: No Acute Distress, Chronically Ill - Head Exam Head Exam: NORMAL INSPECTION - Respiratory Exam Respiratory Exam: Decreased Breath Sounds - Cardiovascular Exam Cardiovascular Exam: +S1, +S2 - GI/Abdominal Exam GI & Abdominal Exam: Soft. absent: Tenderness - Extremities Exam Additional comments: right foot with dressings in place Results - Vital Signs Recent Vital Signs: Last Vital Signs Temp 98.3 F 06/23/18 22:42 Pulse 68 06/23/18 22:42 Resp 18 06/23/18 22:42 BP 117/59 L 06/23/18 22:42 Pulse Ox - Labs Labs: Laboratory Results - last 24 hr 06/24/18 05:29 POC Glucose (mg/dL) 136 H Assessment & Plan - Assessment and Plan (Free Text) Plan: Assessment right heel ulcer, infected, with no evidence of osteomyelitis on MRI, growing MRSA history of coagulase negative staph in the blood cx, probably contamination 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 Linezolid) history of hypoglycemia, R/O drug-induced (i.e. Levaquin) history of right heel ulcer, infected with MRSA with no evidence of osteomyelitis on MRI - S/P treatment with antibiotics peripheral arterial disease history of left heel infected ulcer with cellulitis without evidence of osteomyelitis on MRI history of 2nd right toe and metatarsal head osteomyelitis S/P surgery chronic renal failure obesity with BMI 38 osteoarthritis HTN DM hypothyroidism S/P left toe amputation S/P right hip surgery Plan continue Doxycycline for another 5-7 days will continue to monitor clinically Podiatry to continue local wound care reviewed MRI which did not suggest osteomyelitis
--- NOTE | 2018-06-24 19:44 | HP ---
DATE OF EXAM: 06/24/2018 HISTORY OF PRESENT ILLNESS: The patient is an 82-year-old who came in because of worsening with right heel wound. She has been followed by Dr. Patterson when he examined her last time in the wound care, he referred her to emergency room to rule out osteomyelitis. The patient had MRI done negative for osteomyelitis. She has been on IV Teflaro, but her wound cultures grew methicillin-resistant staphylococcus aureus so she was transferred to TCU to complete her course of antibiotic. She has been on IV doxycycline. She needs wound care. She is in TCU for further management. PAST MEDICAL HISTORY: She has significant past medical history of; 1. Hypertension. 2. Peripheral vascular disease. 3. Noninsulin-dependent diabetes. 4. Hypertension. 5. History of previous second and third toe amputation of the right foot. 6. Morbid obesity. 7. Chronic anemia. ALLERGIES: SHE IS ALLERGIC TO PENICILLIN. MEDICATION: At home, she is on Seroquel 25 mg at bedtime, potassium chloride 10 mEq daily, metoprolol 50 mg twice a day, Losartan 25 mg daily, levothyroxine 50 mcg daily, Levemir 25 unit twice a day, glipizide 5 mg before breakfast and dinner, Lasix 20 mg daily, ferrous sulfate 324 mg daily, Pepcid 20 mg daily, Lovenox 30 mg subcutaneous daily, aspirin 81 mg daily, vitamin D and multivitamin. SOCIAL HISTORY: She lives with her daughter. Denies smoking, drinking or alcohol use. PHYSICAL EXAMINATION: GENERAL: She is awake, alert and able to communicate. VITAL SIGNS: She is afebrile. Pulse 66, respiration 18 and blood pressure 117/59. LUNGS: Bilateral fair airflow. No rhonchi or crackle. HEART: S1,S2 audible. ABDOMEN: Soft and nontender. No rebound. No guarding. NEUROLOGICAL: The patient is awake, alert and able to communicate. Right foot is in the dressing. LABORATORY DATA: Blood sugar is 136. ASSESSMENT: 1. Right heel ulcer, MRI negative for osteomyelitis. 2. Noninsulin-dependent diabetes. 3. Hypertension. 4. Morbid obesity. PLAN: We will continue the patient on IV doxycycline. Blood sugar will be monitored. Physical therapy will be encouraged and Dr. Owusu and Dr. Patterson is following the wound. We will followup the patient. Liam Fernandez MD [facility] # [id number]
[2018-06-25] MEDS: Levothyroxine 50 MCG TAB PO SCH (06:44)
[2018-06-25] MEDS: GlipiZIDE 5 mg SR Tab PO SCH ×2 (06:45→17:26)
[2018-06-25] MEDS: Insulin Lispro (humaLOG) MEDIUM Coverage SC SCH ×4 (06:45→21:33)
[2018-06-25] MEDS: Enoxaparin 30 mg Syringe SC SCH (06:45)
[2018-06-25] MEDS: Potassium Chloride 10 mEq ER Tab PO SCH (10:15)
[2018-06-25] MEDS: Multivitamin Therapeutic Tab PO SCH (10:16)
--- NOTE | 2018-06-25 10:36 | CP.PCM.PN ---
<Connie Timmons - Last Filed: 06/25/18 10:37> Subjective - Date & Time of Evaluation Date of Evaluation: 06/25/18 Time of Evaluation: 10:35 - Subjective Subjective: Podiatry progress note: Dr. Owusu/Leonardo 82 year old female patient seen and examined in TCU with R heel ulceration. Patient resting comfortably and in NAD. She denies any pain to her right ulceration at this time. Denies nausea/vomiting/fever/shortness of breath. Objective - Vital Signs/Intake and Output Vital Signs (last 24 hours): Temp Pulse Resp BP Pulse Ox 98.1 F 64 16 97/48 L 98 06/24/18 16:00 06/24/18 16:00 06/24/18 16:00 06/25/18 10:16 06/24/18 16:00 - Medications Medications: Current Medications Acetaminophen (Tylenol 325mg Tab) 650 mg PO Q6H PRN; Protocol PRN Reason: Pain, moderate (4-7) Last Admin: 06/24/18 23:43 Dose: 650 mg Ascorbic Acid (Vitamin C 500 Mg Tab) 500 mg PO DAILY MAAME Last Admin: 06/25/18 10:16 Dose: 500 mg Aspirin (Ecotrin) 81 mg PO DAILY MAAME; Protocol Last Admin: 06/25/18 10:15 Dose: 81 mg Atorvastatin Calcium (Lipitor) 20 mg PO HS MAAME; Protocol Last Admin: 06/24/18 21:34 Dose: 20 mg Diphenhydramine HCl (Benadryl) 25 mg PO Q6 PRN; Protocol PRN Reason: Itching / Pruritus Enoxaparin Sodium (Lovenox) 30 mg SC 0600 MAAME; Protocol Last Admin: 06/25/18 06:45 Dose: 30 mg Famotidine (Pepcid) 20 mg PO HS MAAME; Protocol Last Admin: 06/24/18 21:34 Dose: 20 mg Ferrous Gluconate (Fergon) 324 mg PO DAILY MAAME; Protocol Last Admin: 06/25/18 10:15 Dose: 324 mg Furosemide (Lasix) 20 mg PO DAILY MAAME; Protocol Last Admin: 06/25/18 10:15 Dose: Not Given Glipizide (Glucotrol Xl) 5 mg PO ACBD MAAME; Protocol Last Admin: 06/25/18 06:45 Dose: 5 mg Doxycycline Hyclate 100 mg/ (Sodium Chloride) 100 mls @ 100 mls/hr IVPB Q12 [facility] Last Admin: 06/24/18 21:31 Dose: 100 mls/hr Insulin Detemir (Levemir) 23 unit SC Q12 MAAME; Protocol Last Admin: 06/24/18 21:35 Dose: 23 units Insulin Human Lispro (Humalog Med) 0 units SC ACHS MAAME; Protocol Last Admin: 06/25/18 06:45 Dose: 1 units Levothyroxine Sodium (Synthroid) 50 mcg PO 0600 MAAME; Protocol Last Admin: 06/25/18 06:44 Dose: 50 mcg Losartan Potassium (Cozaar) 25 mg PO DAILY MAAME; Protocol Last Admin: 06/25/18 10:14 Dose: Not Given Metoprolol Tartrate (Lopressor) 50 mg PO BID MAAME; Protocol Last Admin: 06/25/18 10:16 Dose: Not Given Multivitamins (Thera Tab) 1 tab PO 0800 MAAME Last Admin: 06/25/18 10:16 Dose: 1 tab Potassium Chloride (Klor-Con 10) 10 meq PO DAILY MAAME; Protocol Last Admin: 06/25/18 10:15 Dose: 10 meq Quetiapine Fumarate (Seroquel) 25 mg PO HS MAAME; Protocol Last Admin: 06/24/18 23:42 Dose: 25 mg Silver Sulfadiazine (Silvadene 1% 25 Gm) 0 gm TP DAILY MAAME; Protocol Last Admin: 06/24/18 09:35 Dose: Not Given - Constitutional Appears: Non-toxic, No Acute Distress - Head Exam Head Exam: ATRAUMATIC, NORMOCEPHALIC - Extremities Exam Additional comments: LE focused exam Vasc: DP/PT pulses faintly palpable 1/4 b/l. Skin temperature warm to warm from proximal to distal. Cap refill < 3 seconds to all digits b/l. Moderate edema diffusely. Erythema extending to the up to the mid-leg on the right side. Neuro: Fatoumata and protective sensation absent b/l Derm: Right heel - 5 cm x 5 cm x 0.2 cm posterior right heel non-stageable ulceration with fluctuation, mild periwound erythema, wound bed is necrotic and covered with a membrane, minimal serous drainage, no malodor, negative probe to bone, no tracking/tunneling/undermining noted. Erythema noted extending to the right mid- leg Left heel- no open lesions at this time MSK: No POP to any ulceration site. MMT 4/5 in all major muscle groups. - Neurological Exam Neurological Exam: Alert, Awake, Oriented x3 - Psychiatric Exam Psychiatric exam: Normal Affect, Normal Mood - Skin Skin Exam: Warm Assessment and Plan - Assessment and Plan (Free Text) Assessment: 82 year old female patient with right heel ulceration; stable Plan: Patient seen and evaluated with Dr. Owusu Afebrile, WBCs 9.5, HbA1C 8.0 (06/21/18) R heel X-ray: no signs of osteomyelitis noted R foot MRI done: no evidence of osteomyelitis Wound Culture: MRSA Local wound care; Wound was flushed and dressed with xeroform, DSD Multipodus boots to be worn at all times C/W IV abx per ID recs; continue Doxycycline for another 5-7 days C/w Physical therapy <Robby Owusu - Last Filed: 06/27/18 07:53> Objective - Vital Signs/Intake and Output Vital Signs (last 24 hours): Temp Pulse Resp BP Pulse Ox 98.1 F 50 L 18 90/50 L 96 06/27/18 06:00 06/27/18 06:00 06/27/18 06:00 06/27/18 06:00 06/27/18 06:00 - Medications Medications: Current Medications Acetaminophen (Tylenol 325mg Tab) 650 mg PO Q6H PRN; Protocol PRN Reason: Pain, moderate (4-7) Last Admin: 06/26/18 22:47 Dose: 650 mg Ascorbic Acid (Vitamin C 500 Mg Tab) 500 mg PO DAILY MAAME Last Admin: 06/26/18 10:50 Dose: 500 mg Aspirin (Ecotrin) 81 mg PO 0800 MAAME; Protocol Atorvastatin Calcium (Lipitor) 20 mg PO HS MAAME; Protocol Last Admin: 06/26/18 21:13 Dose: 20 mg Diphenhydramine HCl (Benadryl) 25 mg PO Q6 PRN; Protocol PRN Reason: Itching / Pruritus Last Admin: 06/26/18 21:13 Dose: 25 mg Enoxaparin Sodium (Lovenox) 30 mg SC 0600 MAAME; Protocol Last Admin: 06/27/18 06:19 Dose: 30 mg Famotidine (Pepcid) 20 mg PO HS MAAME; Protocol Last Admin: 06/26/18 21:13 Dose: 20 mg Ferrous Gluconate (Fergon) 324 mg PO DAILY MAAME; Protocol Last Admin: 06/26/18 10:48 Dose: 324 mg Furosemide (Lasix) 20 mg PO DAILY MAAME; Protocol Last Admin: 06/26/18 11:00 Dose: 20 mg Glipizide (Glucotrol Xl) 5 mg PO ACBD MAAME; Protocol Last Admin: 06/26/18 17:10 Dose: 5 mg Doxycycline Hyclate 100 mg/ (Sodium Chloride) 100 mls @ 100 mls/hr IVPB Q12 MAAME Last Admin: 06/26/18 21:14 Dose: 100 mls/hr Insulin Detemir (Levemir) 23 unit SC Q12 MAAME; Protocol Last Admin: 06/26/18 22:46 Dose: 23 units Insulin Human Lispro (Humalog Med) 0 units SC ACHS MAAME; Protocol Last Admin: 06/27/18 06:53 Dose: 1 units Levothyroxine Sodium (Synthroid) 50 mcg PO 0600 MAAME; Protocol Last Admin: 06/27/18 06:20 Dose: 50 mcg Losartan Potassium (Cozaar) 25 mg PO DAILY MAAME; Protocol Last Admin: 06/26/18 12:05 Dose: Not Given Metoprolol Tartrate (Lopressor) 50 mg PO 0800,1700 MAAME; Protocol Multivitamins (Thera Tab) 1 tab PO 0800 MAAME Last Admin: 06/26/18 10:45 Dose: 1 tab Potassium Chloride (Klor-Con 10) 10 meq PO 0800 MAAME; Protocol Quetiapine Fumarate (Seroquel) 25 mg PO HS MAAME; Protocol Last Admin: 06/26/18 21:14 Dose: 25 mg Silver Sulfadiazine (Silvadene 1% 25 Gm) 0 gm TP DAILY MAAME; Protocol Last Admin: 06/26/18 10:50 Dose: Not Given Attending/Attestation - Attestation I have personally seen and examined this patient.: Yes I have fully participated in the care of the patient.: Yes I have reviewed all pertinent clinical information, including history, physical exam and plan: Yes
--- NOTE | 2018-06-25 10:48 | CP.PCM.PN ---
Subjective - Date & Time of Evaluation Date of Evaluation: 06/25/18 Time of Evaluation: 08:15 - Subjective Subjective: No increased pain in the right foot, no fevers, no nausea, feeling better. Objective - Vital Signs/Intake and Output Vital Signs (last 24 hours): Temp Pulse Resp BP Pulse Ox 98.3 F 68 18 115/55 L 06/23/18 22:42 06/23/18 22:42 06/23/18 22:42 06/24/18 09:34 - Medications Medications: Current Medications Acetaminophen (Tylenol 325mg Tab) 650 mg PO Q6H PRN; Protocol PRN Reason: Pain, moderate (4-7) Last Admin: 06/23/18 23:02 Dose: 650 mg Ascorbic Acid (Vitamin C 500 Mg Tab) 500 mg PO DAILY [facility] Aspirin (Ecotrin) 81 mg PO DAILY [facility]; Protocol Last Admin: 06/24/18 09:32 Dose: 81 mg Atorvastatin Calcium (Lipitor) 20 mg PO HS [facility]; Protocol Last Admin: 06/23/18 22:57 Dose: 20 mg Diphenhydramine HCl (Benadryl) 25 mg PO Q6 PRN; Protocol PRN Reason: Itching / Pruritus Enoxaparin Sodium (Lovenox) 30 mg SC 0600 [facility]; Protocol Last Admin: 06/24/18 05:41 Dose: 30 mg Famotidine (Pepcid) 20 mg PO HS [facility]; Protocol Last Admin: 06/23/18 22:57 Dose: 20 mg Ferrous Gluconate (Fergon) 324 mg PO DAILY [facility]; Protocol Last Admin: 06/24/18 09:33 Dose: 324 mg Furosemide (Lasix) 20 mg PO DAILY [facility]; Protocol Last Admin: 06/24/18 09:33 Dose: 20 mg Glipizide (Glucotrol Xl) 5 mg PO ACBD [facility]; Protocol Last Admin: 06/24/18 09:33 Dose: 5 mg Doxycycline Hyclate 100 mg/ (Sodium Chloride) 100 mls @ 100 mls/hr IVPB Q12 [facility] Last Admin: 06/24/18 10:22 Dose: 100 mls/hr Insulin Detemir (Levemir) 23 unit SC Q12 [facility]; Protocol Last Admin: 06/24/18 09:34 Dose: 23 units Insulin Human Lispro (Humalog Med) 0 units SC ACHS [facility]; Protocol Last Admin: 06/24/18 06:43 Dose: Not Given Levothyroxine Sodium (Synthroid) 50 mcg PO 0600 [facility]; Protocol Last Admin: 06/24/18 05:41 Dose: 50 mcg Losartan Potassium (Cozaar) 25 mg PO DAILY [facility]; Protocol Last Admin: 06/24/18 09:32 Dose: 25 mg Metoprolol Tartrate (Lopressor) 50 mg PO BID [facility]; Protocol Last Admin: 06/24/18 09:34 Dose: 50 mg Multivitamins (Thera Tab) 1 tab PO 0800 [facility] Potassium Chloride (Klor-Con 10) 10 meq PO DAILY [facility]; Protocol Last Admin: 06/24/18 09:33 Dose: 10 meq Quetiapine Fumarate (Seroquel) 25 mg PO HS [facility]; Protocol Last Admin: 06/23/18 22:59 Dose: 25 mg Silver Sulfadiazine (Silvadene 1% 25 Gm) 0 gm TP DAILY [facility]; Protocol Last Admin: 06/24/18 09:35 Dose: Not Given - Constitutional Appears: Chronically Ill - Head Exam Head Exam: NORMAL INSPECTION - Respiratory Exam Respiratory Exam: Decreased Breath Sounds - Cardiovascular Exam Cardiovascular Exam: +S1, +S2 - GI/Abdominal Exam GI & Abdominal Exam: Soft. 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 Linezolid) history of hypoglycemia, R/O drug-induced (i.e. Levaquin) history of right heel ulcer, infected with MRSA with no evidence of osteomyelitis on MRI - S/P treatment with antibiotics peripheral arterial disease history of left heel infected ulcer with cellulitis without evidence of osteomyelitis on MRI history of 2nd right toe and metatarsal head osteomyelitis S/P surgery chronic renal failure obesity with BMI 38 osteoarthritis HTN DM hypothyroidism S/P left toe amputation S/P right hip surgery Plan continue Doxycycline for another 4-6 days will continue to monitor clinically discussed with Podiatry - wound is looking better but needs continued wound care reviewed MRI which did not suggest osteomyelitis
[2018-06-25] MEDS: Insulin Detemir 100 units/ml Vial (Levemir) SC SCH ×2 (11:34→21:31)
[2018-06-25] MEDS: Silver Sulfadiazine 1% Cream (25 gm) TP SCH (16:43)
--- NOTE | 2018-06-25 19:50 | PN ---
DATE: 06/25/2018 SUBJECTIVE: The patient is 82-year-old seen and examined sitting in chair, seems to be comfortable. Right heel ulcer seems to be healing well. PHYSICAL EXAMINATION: VITAL SIGNS: She is afebrile. Pulse 64, respirations 16, blood pressure 118/67. LUNGS: Bilateral fair airflow. No rhonchi or crackle. HEART: S1,S2 audible. ABDOMEN: Soft, obese, nontender. No rebound. No guarding. NEUROLOGICAL: She is awake and alert, able to communicate. EXTREMITIES: Bilateral legs, no edema. LABORATORY DATA: Blood sugar is 177. ASSESSMENT: 1. Right heel ulcer seems to be healing. MRI negative for osteomyelitis. 2. Non insulin-dependent diabetes. 3. Hypertension. 4. Hyperlipidemia. 5. Peripheral vascular disease. 6. Status post multiple toe amputations in the past. PLAN: Currently the patient is on intravenous doxycycline, wound care is being done by Podiatry team. We will monitor blood sugar and continue on current medications. Liam Fernandez MD
[2018-06-26] MEDS: Enoxaparin 30 mg Syringe SC SCH (06:15)
[2018-06-26] MEDS: Levothyroxine 50 MCG TAB PO SCH (06:15)
[2018-06-26] MEDS: Insulin Lispro (humaLOG) MEDIUM Coverage SC SCH ×4 (06:51→22:45)
[2018-06-26] MEDS: GlipiZIDE 5 mg SR Tab PO SCH ×2 (06:51→17:10)
[2018-06-26] MEDS: Multivitamin Therapeutic Tab PO SCH (10:45)
[2018-06-26] MEDS: Insulin Detemir 100 units/ml Vial (Levemir) SC SCH ×2 (10:48→22:46)
[2018-06-26] MEDS: Potassium Chloride 10 mEq ER Tab PO SCH (10:48)
[2018-06-26] MEDS: Silver Sulfadiazine 1% Cream (25 gm) TP SCH (10:50)
--- NOTE | 2018-06-26 14:23 | CP.PCM.PN ---
Subjective - Date & Time of Evaluation Date of Evaluation: 06/26/18 Time of Evaluation: 14:18 - Subjective Subjective: Podiatry progress note: Dr. Owusu/Leonardo 82 year old female patient seen and evaluated in TCU for right heel ulceration. Patient resting comfortably in the bedside chair and in NAD. She denies any pain to her right heel at this time. She denies any overnight nausea/vomiting/fever/shortness of breath. Objective - Vital Signs/Intake and Output Vital Signs (last 24 hours): Temp Pulse Resp BP Pulse Ox 97.8 F 70 20 110/55 L 99 06/25/18 16:00 06/26/18 11:00 06/25/18 16:00 06/26/18 12:05 06/25/18 16:00 - Medications Medications: Current Medications Acetaminophen (Tylenol 325mg Tab) 650 mg PO Q6H PRN; Protocol PRN Reason: Pain, moderate (4-7) Last Admin: 06/25/18 23:08 Dose: 650 mg Ascorbic Acid (Vitamin C 500 Mg Tab) 500 mg PO DAILY [facility] Last Admin: 06/26/18 10:50 Dose: 500 mg Aspirin (Ecotrin) 81 mg PO DAILY [facility]; Protocol Last Admin: 06/26/18 10:47 Dose: 81 mg Atorvastatin Calcium (Lipitor) 20 mg PO HS [facility]; Protocol Last Admin: 06/25/18 21:28 Dose: 20 mg Diphenhydramine HCl (Benadryl) 25 mg PO Q6 PRN; Protocol PRN Reason: Itching / Pruritus Enoxaparin Sodium (Lovenox) 30 mg SC 0600 [facility]; Protocol Last Admin: 06/26/18 06:15 Dose: 30 mg Famotidine (Pepcid) 20 mg PO HS [facility]; Protocol Last Admin: 06/25/18 21:28 Dose: 20 mg Ferrous Gluconate (Fergon) 324 mg PO DAILY [facility]; Protocol Last Admin: 06/26/18 10:48 Dose: 324 mg Furosemide (Lasix) 20 mg PO DAILY [facility]; Protocol Last Admin: 06/26/18 11:00 Dose: 20 mg Glipizide (Glucotrol Xl) 5 mg PO ACBD [facility]; Protocol Last Admin: 06/26/18 06:51 Dose: 5 mg Doxycycline Hyclate 100 mg/ (Sodium Chloride) 100 mls @ 100 mls/hr IVPB Q12 [facility] Last Admin: 06/26/18 11:00 Dose: 100 mls/hr Insulin Detemir (Levemir) 23 unit SC Q12 [facility]; Protocol Last Admin: 06/26/18 10:48 Dose: 23 units Insulin Human Lispro (Humalog Med) 0 units SC ACHS [facility]; Protocol Last Admin: 06/26/18 11:32 Dose: Not Given Levothyroxine Sodium (Synthroid) 50 mcg PO 0600 [facility]; Protocol Last Admin: 06/26/18 06:15 Dose: 50 mcg Losartan Potassium (Cozaar) 25 mg PO DAILY [facility]; Protocol Last Admin: 06/26/18 12:05 Dose: Not Given Metoprolol Tartrate (Lopressor) 50 mg PO BID [facility]; Protocol Last Admin: 06/26/18 11:00 Dose: Not Given Multivitamins (Thera Tab) 1 tab PO 0800 [facility] Last Admin: 06/26/18 10:45 Dose: 1 tab Potassium Chloride (Klor-Con 10) 10 meq PO DAILY [facility]; Protocol Last Admin: 06/26/18 10:48 Dose: 10 meq Quetiapine Fumarate (Seroquel) 25 mg PO HS [facility]; Protocol Last Admin: 06/25/18 23:09 Dose: 25 mg Silver Sulfadiazine (Silvadene 1% 25 Gm) 0 gm TP DAILY [facility]; Protocol Last Admin: 06/26/18 10:50 Dose: Not Given - Constitutional Appears: Well, Non-toxic, No Acute Distress - Head Exam Head Exam: ATRAUMATIC, NORMOCEPHALIC - Extremities Exam Additional comments: RLE focused exam Vasc: DP/PT pulses faintly palpable 1/4. Skin temperature warm to cool from proximal to distal. Cap refill < 3 seconds to all digits. Mild edema noted extending up to the right mid-leg. Neuro: Gross and protective sensation diminished. Derm: Right heel - 5 cm x 5 cm x 0.2 cm posterior right heel non-stageable ulceration with fluctuation, mild periwound erythema, wound bed is necrotic and covered with a membrane, minimal sero-sanguineous drainage, no malodor, negative probe to bone, no tracking/tunneling/undermining noted. MSK: No Pain on palpating the deon-ulcerative site. MMT 4/5 in all major muscle groups. - Neurological Exam Neurological Exam: Alert, Awake, Oriented x3 - Psychiatric Exam Psychiatric exam: Normal Affect, Normal Mood Assessment and Plan - Assessment and Plan (Free Text) Assessment: 82 year old female patient with right heel ulceration; non stageable Plan: Patient seen and evaluated Plan discussed with Dr. Patterson Charts, labs and vitals reviewed: Afebrile, WBCs 9.5, HbA1C 8.0 (06/21/18) R heel X-ray: no signs of osteomyelitis noted R foot MRI done: no evidence of osteomyelitis Wound Culture: MRSA Local wound care; Wound was flushed with saline and dressed with xeroform, DSD Multipodus boots to be worn at all times Continue with IV abx per ID recs; continue Doxycycline for another 5-7 days. Continue with Physical therapy. Patient to follow up with Dr. Patterson upon discharge. Podiatry will continue to follow up the patient while in house.
--- NOTE | 2018-06-27 03:01 | PN ---
DATE: 06/26/2018 SUBJECTIVE: The patient is seen earlier today in room 315. Doing well. She is awake and alert. PHYSICAL EXAMINATION: VITAL SIGNS: Temperature is 97, blood pressure is 140/70, and respiratory rate of 16. HEENT: Unremarkable. NECK: Supple. LUNGS: Have decreased breath sounds. HEART: Normal S1 and S2. ABDOMEN: Soft. LABORATORY DATA: Laboratory examination is reviewed. Currently, the patient is on IV doxycycline. ASSESSMENT AND PLAN: This is an 82-year-old female who is allergic to penicillin and has right heel methicillin-resistant Staphylococcus aureus, negative for osteomyelitis by MRI. The patient since getting her antibiotics feels much better. I have explained to her that bioavailability of antibiotics. We will continue to follow with you. Clay Oneill MD
--- NOTE | 2018-06-27 04:42 | PN ---
DATE: 06/26/2018 SUBJECTIVE: The patient is an 82-year-old, seen and examined lying in the bed, seems to be comfortable. Just had her right heel dressing changed and was told that her wound is healing well. PHYSICAL EXAMINATION: GENERAL: She is awake and alert, able to communicate. VITAL SIGNS: She is afebrile, pulse 76, respirations 18, blood pressure 144/72. LUNGS: Bilateral fair airflow. No rhonchi or crackle. HEART: S1, S2 audible. ABDOMEN: Soft, nontender. No rebound. No guarding. NEUROLOGICAL: She is awake and alert, able to communicate. EXTREMITIES: Right foot is in a dressing. LABORATORY DATA: Blood sugar is 276. ASSESSMENT: 1. Right heel ulcer, Magnetic resonance imaging negative for osteomyelitis. 2. History of hypertension. 3. Hyperlipidemia. 4. Peripheral vascular disease. PLAN: Currently, the patient is on IV doxycycline. Podiatry team is taking care of her wound. Monitor blood sugar. She is on DVT prophylaxis. She is on GI prophylaxis. I will re-evaluate in the a.m. She is scheduled to be discharged on Tuesday or . Liam Fernandez MD
[2018-06-27] MEDS: Enoxaparin 30 mg Syringe SC SCH (06:19)
[2018-06-27] MEDS: Levothyroxine 50 MCG TAB PO SCH (06:20)
[2018-06-27] MEDS: Insulin Lispro (humaLOG) MEDIUM Coverage SC SCH ×4 (06:53→21:59)
[2018-06-27] MEDS: Multivitamin Therapeutic Tab PO SCH (09:00)
[2018-06-27] MEDS: Potassium Chloride 10 mEq ER Tab PO SCH (09:00)
[2018-06-27] MEDS: GlipiZIDE 5 mg SR Tab PO SCH ×2 (09:00→17:08)
[2018-06-27] MEDS: Silver Sulfadiazine 1% Cream (25 gm) TP SCH (10:23)
[2018-06-27] MEDS: Insulin Detemir 100 units/ml Vial (Levemir) SC SCH ×2 (10:30→23:06)
--- NOTE | 2018-06-27 12:31 | CP.PCM.PN ---
Subjective - Date & Time of Evaluation Date of Evaluation: 06/27/18 Time of Evaluation: 12:28 - Subjective Subjective: Podiatry progress note: Dr. Owusu/Leonardo 82 year old female patient seen and evaluated in TCU for right heel ulceration. Patient resting comfortably in the bed and in NAD. She denies any pain to her right heel at this time. She denies any overnight nausea/vomiting/fever/shortness of breath. Objective - Vital Signs/Intake and Output Vital Signs (last 24 hours): Temp Pulse Resp BP Pulse Ox 98.1 F 67 18 114/56 L 96 06/27/18 06:00 06/27/18 10:19 06/27/18 06:00 06/27/18 10:06/27/18 06:00 - Medications Medications: Current Medications Acetaminophen (Tylenol 325mg Tab) 650 mg PO Q6H PRN; Protocol PRN Reason: Pain, moderate (4-7) Last Admin: 06/26/18 22:47 Dose: 650 mg Ascorbic Acid (Vitamin C 500 Mg Tab) 500 mg PO DAILY [facility] Last Admin: 06/27/18 10:19 Dose: 500 mg Aspirin (Ecotrin) 81 mg PO 0800 [facility]; Protocol Last Admin: 06/27/18 09:00 Dose: 81 mg Atorvastatin Calcium (Lipitor) 20 mg PO HS [facility]; Protocol Last Admin: 06/26/18 21:13 Dose: 20 mg Collagenase (Santyl) 1 gm TOP DAILY [facility] Diphenhydramine HCl (Benadryl) 25 mg PO Q6 PRN; Protocol PRN Reason: Itching / Pruritus Last Admin: 06/26/18 21:13 Dose: 25 mg Enoxaparin Sodium (Lovenox) 30 mg SC 0600 [facility]; Protocol Last Admin: 06/27/18 06:19 Dose: 30 mg Famotidine (Pepcid) 20 mg PO HS [facility]; Protocol Last Admin: 06/26/18 21:13 Dose: 20 mg Ferrous Gluconate (Fergon) 324 mg PO DAILY [facility]; Protocol Last Admin: 06/27/18 10:22 Dose: 324 mg Furosemide (Lasix) 20 mg PO DAILY [facility]; Protocol Last Admin: 06/27/18 10:19 Dose: 20 mg Glipizide (Glucotrol Xl) 5 mg PO ACBD [facility]; Protocol Last Admin: 06/27/18 09:00 Dose: 5 mg Doxycycline Hyclate 100 mg/ (Sodium Chloride) 100 mls @ 100 mls/hr IVPB Q12 [facility] Last Admin: 06/27/18 10:20 Dose: 100 mls/hr Insulin Detemir (Levemir) 23 unit SC Q12 [facility]; Protocol Last Admin: 06/27/18 10:30 Dose: 1 units Insulin Human Lispro (Humalog Med) 0 units SC ACHS [facility]; Protocol Last Admin: 06/27/18 11:51 Dose: 1 units Levothyroxine Sodium (Synthroid) 50 mcg PO 0600 [facility]; Protocol Last Admin: 06/27/18 06:20 Dose: 50 mcg Losartan Potassium (Cozaar) 25 mg PO DAILY [facility]; Protocol Last Admin: 06/27/18 10:19 Dose: Not Given Metoprolol Tartrate (Lopressor) 50 mg PO 0800,1700 [facility]; Protocol Last Admin: 06/27/18 09:00 Dose: Not Given Multivitamins (Thera Tab) 1 tab PO 0800 [facility] Last Admin: 06/27/18 09:00 Dose: 1 tab Potassium Chloride (Klor-Con 10) 10 meq PO 0800 [facility]; Protocol Last Admin: 06/27/18 09:00 Dose: 10 meq Quetiapine Fumarate (Seroquel) 25 mg PO HS [facility]; Protocol Last Admin: 06/26/18 21:14 Dose: 25 mg Silver Sulfadiazine (Silvadene 1% 25 Gm) 0 gm TP DAILY [facility]; Protocol Last Admin: 06/27/18 10:23 Dose: Not Given - Constitutional Appears: Well, Non-toxic, No Acute Distress - Head Exam Head Exam: ATRAUMATIC, NORMOCEPHALIC - Extremities Exam Additional comments: RLE focused exam Vasc: DP/PT pulses faintly palpable 1/4. Skin temperature warm to cool from proximal to distal. Cap refill < 3 seconds to all digits. Mild edema noted extending up to the right mid-leg. Neuro: Gross and protective sensation diminished. Derm: Right heel - 5 cm x 5 cm x 0.2 cm posterior right heel non-stageable ulceration with fluctuation, mild periwound erythema, wound bed is necrotic, minimal sero-sanguineous drainage, no malodor, negative probe to bone, no tracking/tunneling/undermining noted. MSK: No Pain on palpating the deon-ulcerative site. MMT 4/5 in all major muscle groups. - Neurological Exam Neurological Exam: Alert, Awake, Oriented x3 - Psychiatric Exam Psychiatric exam: Normal Affect, Normal Mood Assessment and Plan - Assessment and Plan (Free Text) Assessment: 82 year old female patient with right heel ulceration; non stageable Plan: Patient seen and evaluated Plan discussed with Dr. Patterson Charts, labs and vitals reviewed: Afebrile, No leukocytosis, HbA1C 8.0 (06/21/18) R heel X-ray: No evidence of osteomyelitis noted R foot MRI done: No evidence of osteomyelitis Wound Culture: MRSA Local wound care; Wound was flushed with saline and dressed with xeroform, DSD Multipodus boots to be worn at all times Continue with IV abx per ID recs; continue Doxycycline for another 5-7 days. Continue with Physical therapy. Patient to follow up with Dr. Patterson upon discharge. Podiatry will continue to follow up the patient while in house.
--- NOTE | 2018-06-27 20:34 | PN ---
DATE: 06/27/2018 SUBJECTIVE: The patient is 82-year-old, seen and examined, lying in the bed, seems to be comfortable, eating and tolerating. PHYSICAL EXAMINATION: VITAL SIGNS: She is afebrile, pulse 67, respirations 18, blood pressure 114/56. LUNGS: Bilateral good airflow. No rhonchi or crackle. HEART: S1, S2 audible. ABDOMEN: Soft, obese, nontender. No rebound. No guarding. NEUROLOGICAL: The patient is awake and alert, able to communicate. LABORATORY DATA: Blood sugar is 165. ASSESSMENT: 1. Right heel ulcer. 2. Non insulin-dependent diabetes. 3. Peripheral vascular disease. 4. Hypertension. 5. Hyperlipidemia. 6. History of methicillin-resistant Staphylococcus aureus wound infection on previous admission. MRI is negative for osteomyelitis. PLAN: We will continue the patient on IV doxycycline as recommended by ID. Local wound care being done by the podiatry team. We will continue to monitor blood sugar. Possible discharge on Tuesday. Liam Fernandez MD
--- NOTE | 2018-06-27 22:06 | PN ---
DATE: 06/27/2018 SUBJECTIVE: The patient is in bed, in no acute distress, nontoxic. No fevers or chills. PHYSICAL EXAMINATION: VITAL SIGNS: Temperature is 98, blood pressure is 160/70, respiratory rate of 18. HEENT: Unremarkable. NECK: Supple. LUNGS: Decreased breath sounds. HEART: Normal S1 and S2. ABDOMEN: Soft, nontender. LABORATORY EXAMINATION: Reveals the patient's labs are reviewed. ASSESSMENT AND PLAN: An 82-year-old female was seen earlier today in her room, in room 315. I have explained to the patient regarding getting oral antibiotics. SHE IS ALLERGIC TO PENICILLIN. This is a right heel methicillin-resistant Staphylococcus aureus with a negative MRI for osteomyelitis. She appears to be improving, tolerating antibiotics well. Clay Oneill MD
[2018-06-28] MEDS: Levothyroxine 50 MCG TAB PO SCH (06:36)
[2018-06-28] MEDS: Enoxaparin 30 mg Syringe SC SCH (06:36)
[2018-06-28] MEDS: Insulin Lispro (humaLOG) MEDIUM Coverage SC SCH ×4 (06:41→22:55)
[2018-06-28] MEDS: GlipiZIDE 5 mg SR Tab PO SCH ×2 (08:30→17:30)
[2018-06-28] MEDS: Multivitamin Therapeutic Tab PO SCH (09:00)
[2018-06-28] MEDS: Potassium Chloride 10 mEq ER Tab PO SCH (09:00)
[2018-06-28] MEDS: Collagenase 250 Units/gm Ointment(30 gm) TOP SCH (09:16)
[2018-06-28] MEDS ORDERED: Collagenase 250 Units/gm Ointment(30 gm) TOP SCH (10:00)
[2018-06-28] MEDS: Silver Sulfadiazine 1% Cream (25 gm) TP SCH (10:53)
[2018-06-28] MEDS: Insulin Detemir 100 units/ml Vial (Levemir) SC SCH ×2 (10:53→22:51)
--- NOTE | 2018-06-28 13:57 | CP.PCM.PN ---
<Dipak Tenorio - Last Filed: 06/28/18 13:55> Subjective - Date & Time of Evaluation Date of Evaluation: 06/28/18 Time of Evaluation: 13:55 - Subjective Subjective: Podiatry progress note: Dr. Owusu/Leonardo 82 year old female patient seen and evaluated in TCU for right heel ulceration. Patient resting comfortably in the bed and in NAD. She denies any pain to her right heel at this time and since yesterday. She denies any overnight nausea/vomiting/fever/shortness of breath. Objective - Vital Signs/Intake and Output Vital Signs (last 24 hours): Temp Pulse Resp BP Pulse Ox 98 F 60 18 113/68 98 06/27/18 16:00 06/28/18 10:50 06/27/18 16:00 06/28/18 10:51 06/27/18 16:00 - Medications Medications: Current Medications Acetaminophen (Tylenol 325mg Tab) 650 mg PO Q6H PRN; Protocol PRN Reason: Pain, moderate (4-7) Last Admin: 06/26/18 22:47 Dose: 650 mg Ascorbic Acid (Vitamin C 500 Mg Tab) 500 mg PO DAILY [facility]AME Last Admin: 06/28/18 10:53 Dose: 500 mg Aspirin (Ecotrin) 81 mg PO 0800 [facility]AME; Protocol Last Admin: 06/28/18 09:00 Dose: 81 mg Atorvastatin Calcium (Lipitor) 20 mg PO HS MAAME; Protocol Last Admin: 06/27/18 21:04 Dose: 20 mg Collagenase (Santyl) 0 gm TOP DAILY [facility]AME Last Admin: 06/28/18 09:16 Dose: 1 applic Diphenhydramine HCl (Benadryl) 25 mg PO Q6 PRN; Protocol PRN Reason: Itching / Pruritus Last Admin: 06/27/18 21:12 Dose: 25 mg Doxycycline Hyclate (Doryx) 100 mg PO Q12 [facility]AME; Protocol Last Admin: 06/28/18 10:50 Dose: 100 mg Enoxaparin Sodium (Lovenox) 30 mg SC 0600 [facility]; Protocol Last Admin: 06/28/18 06:36 Dose: 30 mg Famotidine (Pepcid) 20 mg PO HS [facility]AME; Protocol Last Admin: 06/27/18 21:04 Dose: 20 mg Ferrous Gluconate (Fergon) 324 mg PO DAILY [facility]AME; Protocol Last Admin: 06/28/18 10:51 Dose: 324 mg Furosemide (Lasix) 20 mg PO DAILY [facility]AME; Protocol Last Admin: 06/28/18 10:51 Dose: 20 mg Glipizide (Glucotrol Xl) 5 mg PO ACBD [facility]AME; Protocol Last Admin: 06/28/18 08:30 Dose: 5 mg Insulin Detemir (Levemir) 23 unit SC Q12 [facility]; Protocol Last Admin: 06/28/18 10:53 Dose: 23 units Insulin Human Lispro (Humalog Med) 0 units SC ACHS [facility]; Protocol Last Admin: 06/28/18 12:28 Dose: Not Given Levothyroxine Sodium (Synthroid) 50 mcg PO 0600 [facility]; Protocol Last Admin: 06/28/18 06:36 Dose: 50 mcg Losartan Potassium (Cozaar) 25 mg PO DAILY [facility]; Protocol Last Admin: 06/28/18 10:50 Dose: 25 mg Metoprolol Tartrate (Lopressor) 50 mg PO 0800,1700 [facility]; Protocol Last Admin: 06/28/18 09:00 Dose: 50 mg Multivitamins (Thera Tab) 1 tab PO 0800 [facility] Last Admin: 06/28/18 09:00 Dose: 1 tab Potassium Chloride (Klor-Con 10) 10 meq PO 0800 [facility]; Protocol Last Admin: 06/28/18 09:00 Dose: 10 meq Quetiapine Fumarate (Seroquel) 25 mg PO HS [facility]AME; Protocol Last Admin: 06/27/18 23:06 Dose: 25 mg Silver Sulfadiazine (Silvadene 1% 25 Gm) 0 gm TP DAILY [facility]; Protocol Last Admin: 06/28/18 10:53 Dose: Not Given - Constitutional Appears: Well, Non-toxic, No Acute Distress - Head Exam Head Exam: ATRAUMATIC, NORMOCEPHALIC - Extremities Exam Additional comments: RLE focused exam Vasc: DP/PT pulses faintly palpable 1/4. Skin temperature warm to cool from proximal to distal. Cap refill < 3 seconds to all digits. Mild edema noted extending up to the right mid-leg. Neuro: Gross and protective sensation diminished. Derm: Right heel - 5 cm x 5 cm x 0.2 cm posterior right heel non-stageable ulceration with fluctuation, mild periwound erythema, wound bed is necrotic, minimal sero-sanguineous drainage, no malodor, negative probe to bone, no tracking/tunneling/undermining noted. MSK: No Pain on palpating the deon-ulcerative site. MMT 4/5 in all major muscle groups. - Neurological Exam Neurological Exam: Alert, Awake, Oriented x3 - Psychiatric Exam Psychiatric exam: Normal Affect, Normal Mood Assessment and Plan - Assessment and Plan (Free Text) Assessment: 82 year old female patient with right heel ulceration; non stageable. Plan: Patient seen and evaluated Plan discussed with Dr. Owusu Charts, labs and vitals reviewed: Afebrile, No leukocytosis, HbA1C 8.0 (06/21/18) R heel X-ray: No evidence of osteomyelitis noted R foot MRI done: No evidence of osteomyelitis Wound Culture: MRSA Local wound care; Wound was flushed with saline and dressed with Santyl, DSD Multipodus boots to be worn at all times Continue with IV abx per ID recs. Continue with Physical therapy. Patient to follow up with Dr. Patterson upon discharge. Podiatry will continue to follow up the patient while in house. <Robby Owusu - Last Filed: 06/29/18 15:20> Objective - Vital Signs/Intake and Output Vital Signs (last 24 hours): Temp Pulse Resp BP Pulse Ox 98 F 73 18 99/53 L 98 06/27/18 16:00 06/29/18 10:25 06/27/18 16:00 06/29/18 10:26 06/27/18 16:00 - Medications Medications: Current Medications Acetaminophen (Tylenol 325mg Tab) 650 mg PO Q6H PRN; Protocol PRN Reason: Pain, moderate (4-7) Last Admin: 06/28/18 22:52 Dose: 650 mg Ascorbic Acid (Vitamin C 500 Mg Tab) 500 mg PO DAILY [facility]AME Last Admin: 06/29/18 10:20 Dose: 500 mg Aspirin (Ecotrin) 81 mg PO 0800 [facility]AME; Protocol Last Admin: 06/29/18 10:18 Dose: 81 mg Atorvastatin Calcium (Lipitor) 20 mg PO HS MAAME; Protocol Last Admin: 06/28/18 22:19 Dose: 20 mg Collagenase (Santyl) 0 gm TOP DAILY [facility]AME Last Admin: 06/29/18 10:19 Dose: 1 applic Diphenhydramine HCl (Benadryl) 25 mg PO Q6 PRN; Protocol PRN Reason: Itching / Pruritus Last Admin: 06/27/18 21:12 Dose: 25 mg Doxycycline Hyclate (Doryx) 100 mg PO Q12 [facility]AME; Protocol Last Admin: 06/29/18 10:17 Dose: 100 mg Enoxaparin Sodium (Lovenox) 30 mg SC 0600 [facility]; Protocol Last Admin: 06/29/18 06:17 Dose: 30 mg Famotidine (Pepcid) 20 mg PO HS MAAME; Protocol Last Admin: 06/28/18 22:19 Dose: 20 mg Ferrous Gluconate (Fergon) 324 mg PO DAILY [facility]AME; Protocol Last Admin: 06/29/18 10:18 Dose: 324 mg Furosemide (Lasix) 20 mg PO DAILY [facility]AME; Protocol Last Admin: 06/29/18 10:26 Dose: Not Given Glipizide (Glucotrol Xl) 5 mg PO ACBD [facility]AME; Protocol Last Admin: 06/29/18 10:19 Dose: 5 mg Insulin Detemir (Levemir) 23 unit SC Q12 [facility]; Protocol Last Admin: 06/29/18 12:07 Dose: 23 units Insulin Human Lispro (Humalog Med) 0 units SC ACHS [facility]; Protocol Last Admin: 06/29/18 12:11 Dose: Not Given Levothyroxine Sodium (Synthroid) 50 mcg PO 0600 [facility]; Protocol Last Admin: 06/29/18 06:17 Dose: 50 mcg Losartan Potassium (Cozaar) 25 mg PO DAILY [facility]AME; Protocol Last Admin: 06/29/18 10:25 Dose: Not Given Metoprolol Tartrate (Lopressor) 50 mg PO 0800,1700 [facility]; Protocol Last Admin: 06/29/18 10:26 Dose: Not Given Multivitamins (Thera Tab) 1 tab PO 0800 [facility]AME Last Admin: 06/29/18 10:20 Dose: 1 tab Potassium Chloride (Klor-Con 10) 10 meq PO 0800 [facility]; Protocol Last Admin: 06/29/18 10:19 Dose: 10 meq Quetiapine Fumarate (Seroquel) 25 mg PO HS [facility]AME; Protocol Last Admin: 06/28/18 22:53 Dose: 25 mg Silver Sulfadiazine (Silvadene 1% 25 Gm) 0 gm TP DAILY [facility]AME; Protocol Last Admin: 06/29/18 10:27 Dose: Not Given Attending/Attestation - Attestation I have personally seen and examined this patient.: Yes I have fully participated in the care of the patient.: Yes I have reviewed all pertinent clinical information, including history, physical exam and plan: Yes
--- NOTE | 2018-06-28 15:02 | PN ---
DATE: 06/28/2018 SUBJECTIVE: The patient is in bed in no acute distress. She was seen earlier today around 3:15. PHYSICAL EXAMINATION: VITAL SIGNS: Temperature 98, blood pressure 113/60, respirations 18. HEENT: Examination is unremarkable. NECK: Supple. LUNGS: Decreased breath sound. HEART: Normal S1 and S2. ABDOMEN: Soft, nontender. LABORATORY DATA: Reviewed. We have notified by the nursing staff that her IV access is an issue, to change to p.o. antibiotics. ASSESSMENT AND PLAN: This is an 82-year-old female with past medical history significant for foot infection and is admitted now with methicillin-resistant Staphylococcus aureus cellulitis of the foot with a negative MRI. We will complete with p.o. doxycycline and short-course of antibiotics. Clay Oneill MD
--- NOTE | 2018-06-28 16:51 | PN ---
DATE: 06/28/2018 SUBJECTIVE: The patient is 82-year-old, seen and examined while in gym. Participating in therapy. The patient lost her IV. Currently she is on p.o. doxycycline, not very happy about it. PHYSICAL EXAMINATION: VITAL SIGNS: She is afebrile, pulse 60, respiration 18, and blood pressure 138/68. LUNGS: Bilateral fair airflow. No rhonchi or crackle. HEART: S1 and S2 audible. ABDOMEN: Soft and nontender. No rebound. No guarding. NEUROLOGIC: The patient is awake and alert; able to communicate. EXTREMITIES: Her right foot is in the dressing. LABORATORY DATA: Blood sugar this morning was 129 and afternoon is 134. ASSESSMENT: 1. Diabetic right foot ulcer. 2. Peripheral vascular disease. 3. Morbid obesity. 4. Hypertension. 5. [id number] diabetes. PLAN: Currently, the patient is on p.o. doxycycline. Wound care is being done by Podiatry Team. Her blood sugar is being monitored. She is getting physical therapy. Discharge plan for Tuesday. Liam Fernandez MD
[2018-06-29] MEDS: Levothyroxine 50 MCG TAB PO SCH (06:17)
[2018-06-29] MEDS: Enoxaparin 30 mg Syringe SC SCH (06:17)
[2018-06-29] MEDS: Insulin Lispro (humaLOG) MEDIUM Coverage SC SCH ×4 (07:03→21:49)
[2018-06-29] MEDS: GlipiZIDE 5 mg SR Tab PO SCH ×2 (10:19→17:21)
[2018-06-29] MEDS: Collagenase 250 Units/gm Ointment(30 gm) TOP SCH (10:19)
[2018-06-29] MEDS: Potassium Chloride 10 mEq ER Tab PO SCH (10:19)
[2018-06-29] MEDS: Multivitamin Therapeutic Tab PO SCH (10:20)
[2018-06-29] MEDS: Silver Sulfadiazine 1% Cream (25 gm) TP SCH (10:27)
[2018-06-29] MEDS: Insulin Detemir 100 units/ml Vial (Levemir) SC SCH ×2 (12:07→21:43)
--- NOTE | 2018-06-29 13:36 | PN ---
DATE: 06/29/2018 SUBJECTIVE: This is an 82-year-old female diabetic, seen at bedside for a right heel ulceration. The patient is wearing the wedge shoe while in the chair, and I believe her discharge on the drainage has improved since she is off loading the wound while sitting. She also states that her IV line came out and they are unable to get another vein, so she is at this time presently just on the oral antibiotics. OBJECTIVE: VITAL SIGNS: The patient's vital signs were reviewed. Her pulse rate was 76 and blood pressure was 173/75, and she is afebrile. LABORATORY DATA: Her laboratories were reviewed. Glucose today was 126. Microbiology has not been done since the acute side, and she had MRSA on 06/19/2018 and on 06/22/2018 it was not detected, although she is on doxycycline for same. The patient's foot was examined. There is left drainage as noted above. There is no cellulitis. There is no fluctuance. The wound tissue is a mix of fibrous and necrotic tissue. There is no purulent fluctuance or any increase in temperature noting infection at this time. ASSESSMENT: Alcant[place] 3 ulceration to her left heel. PLAN OF TREATMENT: Continue with wound care. I place a silver alginate and a foam dressing on her today to contain any drainage. In the meantime, she will continue walking with the wedge shoe, and she will be seen and followed daily. Brinda Patterson DPM
--- NOTE | 2018-06-29 17:11 | PN ---
DATE: 06/29/2018 SUBJECTIVE: The patient is 82 years old, seen and examined, doing well, sitting in a chair. Her wound is being cared by Dr. Patterson who state that there is less discharge and seems to be healing. PHYSICAL EXAMINATION: VITAL SIGNS: Afebrile. Pulse 73, respirations 18, blood pressure 99/63. LUNGS: Bilateral fair airflow. No rhonchi or crackle. HEART: S1, S2 audible. ABDOMEN: Soft, obese, nontender. No rebound. No guarding. NEUROLOGIC: She is awake and alert. Able to communicate, ambulating with a walker. EXTREMITIES: Right foot is in a dressing. LABORATORY DATA: Blood sugar is 126. ASSESSMENT: 1. Right foot ulcer. 2. History of peripheral vascular disease. 3. Non-insulin dependent diabetes. 4. Hypertension. 5. Hyperlipidemia. 6. Methicillin-resistant Staphylococcus aureus wound infection. PLAN: The patient is currently on oral doxycycline till Tuesday, and discharge plan is over the weekend. We will continue current medication. We will encourage ambulation. We will follow up . Liam Fernandez MD
--- NOTE | 2018-06-29 20:35 | PN ---
DATE: 06/29/2018 SUBJECTIVE: The patient is seen in bed, in no acute distress, and nontoxic. PHYSICAL EXAMINATION: VITAL SIGNS: Temperature is 98, blood pressure is 140/60, and respiratory rate of 18. HEENT: Unremarkable. NECK: Supple. LUNGS: Decreased breath sounds. HEART: Normal S1 and S2. ABDOMEN: Soft and nontender. LABORATORY DATA: Reviewed. ASSESSMENT AND PLAN: This is an 82-year-old female who I have seen earlier today in room 315, and with past medical history as noted. The patient is admitted with a right foot cellulitis, negative MRI and cultures MRSA, completed short course of doxycycline. Clay Oneill MD
[2018-06-30] MEDS: Enoxaparin 30 mg Syringe SC SCH (06:21)
[2018-06-30] MEDS: Levothyroxine 50 MCG TAB PO SCH (06:22)
[2018-06-30] MEDS: GlipiZIDE 5 mg SR Tab PO SCH ×2 (06:30→17:20)
[2018-06-30] MEDS: Potassium Chloride 10 mEq ER Tab PO SCH (10:10)
[2018-06-30] MEDS: Collagenase 250 Units/gm Ointment(30 gm) TOP SCH (10:11)
[2018-06-30] MEDS: Multivitamin Therapeutic Tab PO SCH (10:11)
[2018-06-30] MEDS: Insulin Detemir 100 units/ml Vial (Levemir) SC SCH ×2 (10:11→22:07)
[2018-06-30] MEDS: Insulin Lispro (humaLOG) MEDIUM Coverage SC SCH ×4 (10:17→22:06)
[2018-06-30] MEDS: Silver Sulfadiazine 1% Cream (25 gm) TP SCH (10:59)
--- NOTE | 2018-06-30 12:32 | CP.PCM.PN ---
<Dipak Tenorio - Last Filed: 06/30/18 12:30> Subjective - Date & Time of Evaluation Date of Evaluation: 06/30/18 Time of Evaluation: 12:30 - Subjective Subjective: Podiatry progress note: Dr. Owusu/Leonardo 82 year old female patient seen and evaluated in TCU with Dr. Owusu for right heel ulceration. Patient resting comfortably in the bed and in NAD. She denies any pain to her right heel at this time and overnight. She denies any overnight nausea/vomiting/fever/shortness of breath. Objective - Vital Signs/Intake and Output Vital Signs (last 24 hours): Temp Pulse Resp BP Pulse Ox 98 F 73 18 102/58 L 98 06/27/18 16:00 06/29/18 10:25 06/27/18 16:00 06/30/18 10:18 06/27/18 16:00 - Medications Medications: Current Medications Acetaminophen (Tylenol 325mg Tab) 650 mg PO Q6H PRN; Protocol PRN Reason: Pain, moderate (4-7) Last Admin: 06/29/18 23:42 Dose: 650 mg Ascorbic Acid (Vitamin C 500 Mg Tab) 500 mg PO DAILY MAAME Last Admin: 06/30/18 10:12 Dose: 500 mg Aspirin (Ecotrin) 81 mg PO 0800 MAAME; Protocol Last Admin: 06/30/18 10:10 Dose: 81 mg Atorvastatin Calcium (Lipitor) 20 mg PO HS MAAME; Protocol Last Admin: 06/29/18 21:44 Dose: 20 mg Collagenase (Santyl) 0 gm TOP DAILY MAAME Last Admin: 06/30/18 10:11 Dose: 1 applic Diphenhydramine HCl (Benadryl) 25 mg PO Q6 PRN; Protocol PRN Reason: Itching / Pruritus Last Admin: 06/27/18 21:12 Dose: 25 mg Doxycycline Hyclate (Doryx) 100 mg PO Q12 MAAME; Protocol Last Admin: 06/30/18 10:10 Dose: 100 mg Enoxaparin Sodium (Lovenox) 30 mg SC 0600 MAAME; Protocol Last Admin: 06/30/18 06:21 Dose: 30 mg Famotidine (Pepcid) 20 mg PO HS MAAME; Protocol Last Admin: 06/29/18 21:45 Dose: 20 mg Ferrous Gluconate (Fergon) 324 mg PO DAILY MAAME; Protocol Last Admin: 06/30/18 10:10 Dose: 324 mg Furosemide (Lasix) 20 mg PO DAILY MAAME; Protocol Last Admin: 06/30/18 10:18 Dose: Not Given Glipizide (Glucotrol Xl) 5 mg PO ACBD MAAME; Protocol Last Admin: 06/30/18 06:30 Dose: 5 mg Insulin Detemir (Levemir) 23 unit SC Q12 MAAME; Protocol Last Admin: 06/30/18 10:11 Dose: 23 units Insulin Human Lispro (Humalog Med) 0 units SC ACHS MAAME; Protocol Last Admin: 06/30/18 11:57 Dose: Not Given Levothyroxine Sodium (Synthroid) 50 mcg PO 0600 MAAME; Protocol Last Admin: 06/30/18 06:22 Dose: 50 mcg Losartan Potassium (Cozaar) 25 mg PO DAILY MAAME; Protocol Last Admin: 06/30/18 10:14 Dose: Not Given Metoprolol Tartrate (Lopressor) 50 mg PO 0800,1700 MAAME; Protocol Last Admin: 06/30/18 10:18 Dose: Not Given Multivitamins (Thera Tab) 1 tab PO 0800 MAAME Last Admin: 06/30/18 10:11 Dose: 1 tab Potassium Chloride (Klor-Con 10) 10 meq PO 0800 [facility]AME; Protocol Last Admin: 06/30/18 10:10 Dose: 10 meq Quetiapine Fumarate (Seroquel) 25 mg PO HS MAAME; Protocol Last Admin: 06/29/18 23:43 Dose: 25 mg Silver Sulfadiazine (Silvadene 1% 25 Gm) 0 gm TP DAILY [facility]AME; Protocol Last Admin: 06/30/18 10:59 Dose: Not Given - Constitutional Appears: Well, Non-toxic, No Acute Distress - Head Exam Head Exam: ATRAUMATIC, NORMOCEPHALIC - Extremities Exam Additional comments: RLE focused exam Vasc: DP/PT pulses faintly palpable 1/4. Skin temperature warm to cool from proximal to distal. Cap refill < 3 seconds to all digits. Mild edema noted extending up to the right mid-leg. Neuro: Gross and protective sensation diminished. Derm: Right heel - 5 cm x 5 cm x 0.2 cm posterior right heel non-stageable ulceration with fluctuation, mild periwound erythema, wound bed is necrotic, minimal sero-sanguineous drainage, no malodor, negative probe to bone, no tracking/tunneling/undermining noted. MSK: No Pain on palpating the deon-ulcerative site. MMT 4/5 in all major muscle groups. - Neurological Exam Neurological Exam: Alert, Awake, Oriented x3 - Psychiatric Exam Psychiatric exam: Normal Affect, Normal Mood Assessment and Plan - Assessment and Plan (Free Text) Assessment: 82 year old female patient with right heel ulceration; non stageable. Plan: Patient seen and evaluated with Dr. Owusu Plan discussed with Dr. Owsuu Charts, labs and vitals reviewed: Afebrile, No leukocytosis, HbA1C 8.0 (06/21/18) R heel X-ray: No evidence of osteomyelitis noted R foot MRI done: No evidence of osteomyelitis Wound Culture: MRSA Local wound care; Wound was flushed with saline and dressed with Santyl, DSD Multipodus boots to be worn at all times Continue with IV abx per ID recs. Continue with Physical therapy. Patient to follow up with Dr. Patterson upon discharge. Podiatry will continue to follow up the patient while in house. <Robby Owusu - Last Filed: 06/30/18 16:43> Objective - Vital Signs/Intake and Output Vital Signs (last 24 hours): Temp Pulse Resp BP Pulse Ox 98.1 F 103 H 18 153/87 H 100 06/30/18 16:00 06/30/18 16:00 06/30/18 16:00 06/30/18 16:00 06/30/18 16:00 - Medications Medications: Current Medications Acetaminophen (Tylenol 325mg Tab) 650 mg PO Q6H PRN; Protocol PRN Reason: Pain, moderate (4-7) Last Admin: 06/29/18 23:42 Dose: 650 mg Ascorbic Acid (Vitamin C 500 Mg Tab) 500 mg PO DAILY [facility] Last Admin: 06/30/18 10:12 Dose: 500 mg Aspirin (Ecotrin) 81 mg PO 0800 [facility]; Protocol Last Admin: 06/30/18 10:10 Dose: 81 mg Atorvastatin Calcium (Lipitor) 20 mg PO HS [facility]; Protocol Last Admin: 06/29/18 21:44 Dose: 20 mg Collagenase (Santyl) 0 gm TOP DAILY MAAME Last Admin: 06/30/18 10:11 Dose: 1 applic Diphenhydramine HCl (Benadryl) 25 mg PO Q6 PRN; Protocol PRN Reason: Itching / Pruritus Last Admin: 06/27/18 21:12 Dose: 25 mg Doxycycline Hyclate (Doryx) 100 mg PO Q12 MAAME; Protocol Last Admin: 06/30/18 10:10 Dose: 100 mg Enoxaparin Sodium (Lovenox) 30 mg SC 0600 MAAME; Protocol Last Admin: 06/30/18 06:21 Dose: 30 mg Famotidine (Pepcid) 20 mg PO HS MAAME; Protocol Last Admin: 06/29/18 21:45 Dose: 20 mg Ferrous Gluconate (Fergon) 324 mg PO DAILY MAAME; Protocol Last Admin: 06/30/18 10:10 Dose: 324 mg Furosemide (Lasix) 20 mg PO DAILY MAAME; Protocol Last Admin: 06/30/18 10:18 Dose: Not Given Glipizide (Glucotrol Xl) 5 mg PO ACBD MAAME; Protocol Last Admin: 06/30/18 06:30 Dose: 5 mg Insulin Detemir (Levemir) 23 unit SC Q12 MAAME; Protocol Last Admin: 06/30/18 10:11 Dose: 23 units Insulin Human Lispro (Humalog Med) 0 units SC ACHS MAAME; Protocol Last Admin: 06/30/18 11:57 Dose: Not Given Levothyroxine Sodium (Synthroid) 50 mcg PO 0600 MAAME; Protocol Last Admin: 06/30/18 06:22 Dose: 50 mcg Losartan Potassium (Cozaar) 25 mg PO DAILY MAAME; Protocol Last Admin: 06/30/18 10:14 Dose: Not Given Metoprolol Tartrate (Lopressor) 50 mg PO 0800,1700 MAAME; Protocol Last Admin: 06/30/18 10:18 Dose: Not Given Multivitamins (Thera Tab) 1 tab PO 0800 MAAME Last Admin: 06/30/18 10:11 Dose: 1 tab Potassium Chloride (Klor-Con 10) 10 meq PO 0800 MAAME; Protocol Last Admin: 06/30/18 10:10 Dose: 10 meq Quetiapine Fumarate (Seroquel) 25 mg PO HS MAAME; Protocol Last Admin: 06/29/18 23:43 Dose: 25 mg Silver Sulfadiazine (Silvadene 1% 25 Gm) 0 gm TP DAILY MAAME; Protocol Last Admin: 06/30/18 10:59 Dose: Not Given Attending/Attestation - Attestation I have personally seen and examined this patient.: Yes I have fully participated in the care of the patient.: Yes I have reviewed all pertinent clinical information, including history, physical exam and plan: Yes
--- NOTE | 2018-06-30 15:27 | PN ---
DATE: 06/30/2018 SUBJECTIVE: The patient is in bed in no acute distress, nontoxic. PHYSICAL EXAMINATION VITAL SIGNS: On exam temperature is 98, blood pressure is 102/50 and respiratory of 18. HEENT: Unremarkable. NECK: Supple. LUNGS: Have decreased breath sounds. HEART: Normal S1 and S2. ABDOMEN: Soft. MEDICATIONS: Review of the orders reveals the patient is on p.o. doxycycline. LABORATORY EXAMINATION: Reviewed. ASSESSMENT AND PLAN: This is an 82-year-old female who was seen earlier today with past medical history admitted with a right foot cellulitis, negative MRI, cultures and will complete a short course of doxycycline. Clay Oneill MD
--- NOTE | 2018-06-30 16:22 | PN ---
DATE: 06/30/2018 SUBJECTIVE: The patient is 82 years old, seen and examined, lying in bed, seems to be comfortable. Offers no complaint. Decided to go home on Tuesday when her family will be available. PHYSICAL EXAMINATION VITAL SIGNS: She is afebrile, pulse 70, respirations 16, and blood pressure 102/58. LUNGS: Bilateral fair airflow. No rhonchi or crackles. HEART: S1 and S2 audible. ABDOMEN: Soft, obese, and nontender. No rebound. No guarding. NEUROLOGIC: The patient is awake and alert, able to communicate. LABORATORY DATA: Blood sugar is 114. ASSESSMENT 1. Right heel ulcer. 2. Non-insulin dependent diabetes. 3. Hypertension. 4. Hyperlipidemia. 5. Peripheral vascular disease. 6. Morbid obesity. 7. Right foot wound infection. MRI negative for osteomyelitis. PLAN: Currently, she is on doxycycline. We will continue her usual medications. plan to be discharged on Tuesday, day after tomorrow. Liam Fernandez MD
[2018-07-01] MEDS: GlipiZIDE 5 mg SR Tab PO SCH ×2 (06:31→17:47)
[2018-07-01] MEDS: Levothyroxine 50 MCG TAB PO SCH (06:31)
[2018-07-01] MEDS: Enoxaparin 30 mg Syringe SC SCH (06:31)
[2018-07-01] MEDS: Insulin Lispro (humaLOG) MEDIUM Coverage SC SCH ×4 (08:08→22:17)
[2018-07-01] MEDS: Multivitamin Therapeutic Tab PO SCH (10:40)
[2018-07-01] MEDS: Potassium Chloride 10 mEq ER Tab PO SCH (10:41)
[2018-07-01] MEDS: Silver Sulfadiazine 1% Cream (25 gm) TP SCH (10:44)
[2018-07-01] MEDS: Collagenase 250 Units/gm Ointment(30 gm) TOP SCH (10:44)
[2018-07-01] MEDS: Insulin Detemir 100 units/ml Vial (Levemir) SC SCH ×2 (11:09→22:51)
--- NOTE | 2018-07-01 12:00 | CP.PCM.PN ---
<Dipak Tenorio - Last Filed: 07/01/18 11:57> Subjective - Date & Time of Evaluation Date of Evaluation: 07/01/18 Time of Evaluation: 11:57 - Subjective Subjective: Podiatry progress note: Dr. Owusu/Leonardo 82 year old female patient seen and evaluated in TCU for right heel ulceration. Patient resting comfortably in the bed and in NAD. She denies any pain to her right heel at this time and overnight. She denies any overnight nausea/vomiting/fever/shortness of breath. Objective - Vital Signs/Intake and Output Vital Signs (last 24 hours): Temp Pulse Resp BP Pulse Ox 98.1 F 70 18 119/68 100 06/30/18 16:00 07/01/18 10:40 06/30/18 16:00 07/01/18 10:42 06/30/18 16:00 - Medications Medications: Current Medications Acetaminophen (Tylenol 325mg Tab) 650 mg PO Q6H PRN; Protocol PRN Reason: Pain, moderate (4-7) Last Admin: 06/30/18 23:15 Dose: 650 mg Ascorbic Acid (Vitamin C 500 Mg Tab) 500 mg PO DAILY MAAME Last Admin: 07/01/18 10:44 Dose: 500 mg Aspirin (Ecotrin) 81 mg PO 0800 MAAME; Protocol Last Admin: 07/01/18 10:40 Dose: 81 mg Atorvastatin Calcium (Lipitor) 20 mg PO HS MAAME; Protocol Last Admin: 06/30/18 22:06 Dose: 20 mg Collagenase (Santyl) 0 gm TOP DAILY MAAME Last Admin: 07/01/18 10:44 Dose: 1 applic Diphenhydramine HCl (Benadryl) 25 mg PO Q6 PRN; Protocol PRN Reason: Itching / Pruritus Last Admin: 06/30/18 22:06 Dose: 25 mg Enoxaparin Sodium (Lovenox) 30 mg SC 0600 MAAME; Protocol Last Admin: 07/01/18 06:31 Dose: 30 mg Famotidine (Pepcid) 20 mg PO HS MAAME; Protocol Last Admin: 06/30/18 22:06 Dose: 20 mg Ferrous Gluconate (Fergon) 324 mg PO DAILY MAAME; Protocol Last Admin: 07/01/18 10:42 Dose: 324 mg Furosemide (Lasix) 20 mg PO DAILY MAAME; Protocol Last Admin: 07/01/18 10:42 Dose: 20 mg Glipizide (Glucotrol Xl) 5 mg PO ACBD MAAME; Protocol Last Admin: 07/01/18 06:31 Dose: 5 mg Insulin Detemir (Levemir) 23 unit SC Q12 MAAME; Protocol Last Admin: 07/01/18 11:09 Dose: 23 units Insulin Human Lispro (Humalog Med) 0 units SC ACHS MAAME; Protocol Last Admin: 07/01/18 08:08 Dose: Not Given Levothyroxine Sodium (Synthroid) 50 mcg PO 0600 MAAME; Protocol Last Admin: 07/01/18 06:31 Dose: 50 mcg Losartan Potassium (Cozaar) 25 mg PO DAILY MAAME; Protocol Last Admin: 07/01/18 10:42 Dose: Not Given Metoprolol Tartrate (Lopressor) 50 mg PO 0800,1700 MAAME; Protocol Last Admin: 07/01/18 10:40 Dose: 50 mg Multivitamins (Thera Tab) 1 tab PO 0800 MAAME Last Admin: 07/01/18 10:40 Dose: 1 tab Potassium Chloride (Klor-Con 10) 10 meq PO 0800 MAAME; Protocol Last Admin: 07/01/18 10:41 Dose: 10 meq Quetiapine Fumarate (Seroquel) 25 mg PO HS MAAME; Protocol Last Admin: 06/30/18 23:15 Dose: 25 mg Silver Sulfadiazine (Silvadene 1% 25 Gm) 0 gm TP DAILY MAAME; Protocol Last Admin: 07/01/18 10:44 Dose: 1 gm - Constitutional Appears: Well, Non-toxic, No Acute Distress - Head Exam Head Exam: ATRAUMATIC, NORMOCEPHALIC - Extremities Exam Additional comments: RLE focused exam Vasc: DP/PT pulses faintly palpable 1/4. Skin temperature warm to cool from proximal to distal. Cap refill < 3 seconds to all digits. Mild edema noted extending up to the right mid-leg. Neuro: Gross and protective sensation diminished. Derm: Right heel - 5 cm x 5 cm x 0.2 cm posterior right heel non-stageable ulceration with mild periwound erythema, wound bed is necrotic, granular 30:70, minimal sero-sanguineous drainage, no malodor, negative probe to bone, no tracking/tunneling/undermining noted. MSK: No Pain on palpating the deon-ulcerative site. MMT 4/5 in all major muscle groups. - Neurological Exam Neurological Exam: Alert, Awake, Oriented x3 - Psychiatric Exam Psychiatric exam: Normal Affect, Normal Mood Assessment and Plan - Assessment and Plan (Free Text) Assessment: 82 year old female patient with right heel ulceration; non stageable. Plan: Patient seen and evaluated. Plan discussed with Dr. Owusu Charts, labs and vitals reviewed: Afebrile, No leukocytosis, HbA1C 8.0 (06/21/18) R heel X-ray: No evidence of osteomyelitis noted R foot MRI done: No evidence of osteomyelitis Wound Culture: MRSA Local wound care; Wound was flushed with saline and dressed with Santyl, DSD Multipodus boots to be worn at all times. Continue with Physical therapy. Patient to follow up with Dr. Patterson upon discharge. Podiatry will continue to follow up the patient while in house. <Robby Owusu - Last Filed: 07/01/18 12:00> Objective - Vital Signs/Intake and Output Vital Signs (last 24 hours): Temp Pulse Resp BP Pulse Ox 98.1 F 70 18 119/68 100 06/30/18 16:00 07/01/18 10:40 06/30/18 16:00 07/01/18 10:42 06/30/18 16:00 - Medications Medications: Current Medications Acetaminophen (Tylenol 325mg Tab) 650 mg PO Q6H PRN; Protocol PRN Reason: Pain, moderate (4-7) Last Admin: 06/30/18 23:15 Dose: 650 mg Ascorbic Acid (Vitamin C 500 Mg Tab) 500 mg PO DAILY MAAME Last Admin: 07/01/18 10:44 Dose: 500 mg Aspirin (Ecotrin) 81 mg PO 0800 MAAME; Protocol Last Admin: 07/01/18 10:40 Dose: 81 mg Atorvastatin Calcium (Lipitor) 20 mg PO HS MAAME; Protocol Last Admin: 06/30/18 22:06 Dose: 20 mg Collagenase (Santyl) 0 gm TOP DAILY MAAME Last Admin: 07/01/18 10:44 Dose: 1 applic Diphenhydramine HCl (Benadryl) 25 mg PO Q6 PRN; Protocol PRN Reason: Itching / Pruritus Last Admin: 06/30/18 22:06 Dose: 25 mg Enoxaparin Sodium (Lovenox) 30 mg SC 0600 MAAME; Protocol Last Admin: 07/01/18 06:31 Dose: 30 mg Famotidine (Pepcid) 20 mg PO HS MAAME; Protocol Last Admin: 06/30/18 22:06 Dose: 20 mg Ferrous Gluconate (Fergon) 324 mg PO DAILY MAAME; Protocol Last Admin: 07/01/18 10:42 Dose: 324 mg Furosemide (Lasix) 20 mg PO DAILY MAAME; Protocol Last Admin: 07/01/18 10:42 Dose: 20 mg Glipizide (Glucotrol Xl) 5 mg PO ACBD MAAME; Protocol Last Admin: 07/01/18 06:31 Dose: 5 mg Insulin Detemir (Levemir) 23 unit SC Q12 MAAME; Protocol Last Admin: 07/01/18 11:09 Dose: 23 units Insulin Human Lispro (Humalog Med) 0 units SC ACHS MAAME; Protocol Last Admin: 07/01/18 11:59 Dose: 3 units Levothyroxine Sodium (Synthroid) 50 mcg PO 0600 MAAME; Protocol Last Admin: 07/01/18 06:31 Dose: 50 mcg Losartan Potassium (Cozaar) 25 mg PO DAILY MAAME; Protocol Last Admin: 07/01/18 10:42 Dose: Not Given Metoprolol Tartrate (Lopressor) 50 mg PO 0800,1700 MAAME; Protocol Last Admin: 07/01/18 10:40 Dose: 50 mg Multivitamins (Thera Tab) 1 tab PO 0800 MAAME Last Admin: 07/01/18 10:40 Dose: 1 tab Potassium Chloride (Klor-Con 10) 10 meq PO 0800 MAAME; Protocol Last Admin: 07/01/18 10:41 Dose: 10 meq Quetiapine Fumarate (Seroquel) 25 mg PO HS MAAME; Protocol Last Admin: 06/30/18 23:15 Dose: 25 mg Silver Sulfadiazine (Silvadene 1% 25 Gm) 0 gm TP DAILY MAAME; Protocol Last Admin: 07/01/18 10:44 Dose: 1 gm Attending/Attestation - Attestation I have personally seen and examined this patient.: Yes I have fully participated in the care of the patient.: Yes I have reviewed all pertinent clinical information, including history, physical exam and plan: Yes
[2018-07-01 13:07] VITALS: RESP 20; TEMP 98.3; O2SAT 86
--- NOTE | 2018-07-01 14:07 | PN ---
DATE: 07/01/2018 SUBJECTIVE: The patient is seen earlier this morning. She is comfortable. No fevers. No chills. Tolerating the antibiotics well. PHYSICAL EXAMINATION: VITAL SIGNS: Temperature is 98, blood pressure is 150/80, respiratory rate of 18, heart rate of 103. HEENT: Unremarkable. NECK: Supple. LUNGS: . HEART: Normal S1 and S2. ABDOMEN: Soft, nontender. LABORATORY DATA: Examination is noted. Microbiology is reviewed. MEDICATIONS: Review of orders reveals the patient to be on p.o. doxycycline. ASSESSMENT AND PLAN: This is an 82-year-old female seen earlier this morning with methicillin-resistant Staphylococcus aureus right foot infection, has completed a short course of doxycycline. Actually, the patient is now off antibiotics, afebrile. Clay Oneill MD
[2018-07-01 17:47] VITALS: PULSE 72
--- NOTE | 2018-07-01 20:24 | PN ---
DATE: 07/01/2018 SUBJECTIVE: The patient is 82 years old, seen and examined, seems to be comfortable. Her right heel ulcer is being followed up this a.m. No fever or chills. She finishes her course of antibiotics. Scheduled to be discharged tomorrow. PHYSICAL EXAMINATION: GENERAL: Today, she is awake and alert, able to communicate. VITAL SIGNS: She is afebrile, pulse 70, respirations 20, blood pressure 119/68. LUNGS: Bilateral fair airflow. No rhonchi or crackles. HEART: S1 and S2 audible. ABDOMEN: Soft, obese, and nontender. No rebound. No guarding. EXTREMITIES: Right foot is in the dressing. NEUROLOGIC: She is awake and alert, able to communicate. . LABORATORY DATA: Blood sugar is 87. ASSESSMENT: 1. Right heel ulcer. MRI negative for osteomyelitis. 2. Peripheral vascular disease. 3. Hypertension. 4. Hyperlipidemia. 5. Noninsulin-dependent diabetes. 6. Hypothyroidism. PLAN: The patient is due to be discharged tomorrow. She does not need any new medications. She is medication prior to admission. As per ID recommendations, she finishes her course of antibiotics. Liam Fernandez MD
[2018-07-02] MEDS: Enoxaparin 30 mg Syringe SC SCH (06:42)
[2018-07-02] MEDS: Levothyroxine 50 MCG TAB PO SCH (06:43)
[2018-07-02] MEDS: GlipiZIDE 5 mg SR Tab PO SCH (06:43)
[2018-07-02] MEDS: Insulin Lispro (humaLOG) MEDIUM Coverage SC SCH ×2 (06:44→12:19)
[2018-07-02] MEDS: Multivitamin Therapeutic Tab PO SCH (11:49)
[2018-07-02] MEDS: Potassium Chloride 10 mEq ER Tab PO SCH (11:49)
[2018-07-02] MEDS: Insulin Detemir 100 units/ml Vial (Levemir) SC SCH (11:50)
[2018-07-02] MEDS: Silver Sulfadiazine 1% Cream (25 gm) TP SCH (11:50)
[2018-07-02] MEDS: Collagenase 250 Units/gm Ointment(30 gm) TOP SCH (11:50)
[2018-07-02 11:51] VITALS: BP 134/73
--- NOTE | 2018-07-02 12:29 | CP.PCM.PN ---
<Dipak Tenorio - Last Filed: 07/02/18 12:23> Subjective - Date & Time of Evaluation Date of Evaluation: 07/02/18 Time of Evaluation: 12:23 - Subjective Subjective: Podiatry progress note: Dr. Owusu/Leonardo 82 year old female patient seen and evaluated in TCU for right heel ulceration. Patient resting comfortably in the bed and in NAD. She denies any pain to her right heel at this time and overnight. She denies any overnight nausea/vomiting/fever/shortness of breath. Objective - Vital Signs/Intake and Output Vital Signs (last 24 hours): Temp Pulse Resp BP Pulse Ox 98.3 F 72 20 134/73 86 L 07/01/18 10:00 07/01/18 17:46 07/01/18 10:00 07/02/18 11:50 07/01/18 10:00 - Medications Medications: Current Medications Acetaminophen (Tylenol 325mg Tab) 650 mg PO Q6H PRN; Protocol PRN Reason: Pain, moderate (4-7) Last Admin: 06/30/18 23:15 Dose: 650 mg Ascorbic Acid (Vitamin C 500 Mg Tab) 500 mg PO DAILY MAAME Last Admin: 07/02/18 11:50 Dose: 500 mg Aspirin (Ecotrin) 81 mg PO 0800 MAAME; Protocol Last Admin: 07/02/18 11:49 Dose: 81 mg Atorvastatin Calcium (Lipitor) 20 mg PO HS MAAME; Protocol Last Admin: 07/01/18 21:12 Dose: 20 mg Collagenase (Santyl) 0 gm TOP DAILY MAAME Last Admin: 07/02/18 11:50 Dose: 1 applic Diphenhydramine HCl (Benadryl) 25 mg PO Q6 PRN; Protocol PRN Reason: Itching / Pruritus Last Admin: 07/01/18 21:16 Dose: 25 mg Famotidine (Pepcid) 20 mg PO HS MAAME; Protocol Last Admin: 07/01/18 21:12 Dose: 20 mg Ferrous Gluconate (Fergon) 324 mg PO DAILY MAAME; Protocol Last Admin: 07/02/18 11:50 Dose: 324 mg Furosemide (Lasix) 20 mg PO DAILY MAAME; Protocol Last Admin: 07/02/18 11:50 Dose: 20 mg Glipizide (Glucotrol Xl) 5 mg PO ACBD MAAME; Protocol Last Admin: 07/02/18 06:43 Dose: 5 mg Insulin Detemir (Levemir) 23 unit SC Q12 MAAME; Protocol Last Admin: 07/02/18 11:50 Dose: 23 units Insulin Human Lispro (Humalog Med) 0 units SC ACHS MAAME; Protocol Last Admin: 07/02/18 12:19 Dose: Not Given Levothyroxine Sodium (Synthroid) 50 mcg PO 0600 MAAME; Protocol Last Admin: 07/02/18 06:43 Dose: 50 mcg Losartan Potassium (Cozaar) 25 mg PO DAILY MAAME; Protocol Last Admin: 07/02/18 11:49 Dose: 25 mg Metoprolol Tartrate (Lopressor) 50 mg PO 0800,1700 MAAME; Protocol Last Admin: 07/02/18 11:49 Dose: 50 mg Multivitamins (Thera Tab) 1 tab PO 0800 MAAME Last Admin: 07/02/18 11:49 Dose: 1 tab Potassium Chloride (Klor-Con 10) 10 meq PO 0800 MAAME; Protocol Last Admin: 07/02/18 11:49 Dose: 10 meq Quetiapine Fumarate (Seroquel) 25 mg PO HS MAAME; Protocol Last Admin: 07/01/18 22:51 Dose: 25 mg Silver Sulfadiazine (Silvadene 1% 25 Gm) 0 gm TP DAILY MAAME; Protocol Last Admin: 07/02/18 11:50 Dose: 1 gm - Constitutional Appears: Well, Non-toxic, No Acute Distress - Head Exam Head Exam: ATRAUMATIC, NORMOCEPHALIC - Extremities Exam Additional comments: RLE focused exam: There was a serous drainage stricking throught the right heel dressing. Vasc: DP/PT pulses faintly palpable 1/4. Skin temperature warm to cool from proximal to distal. Cap refill < 3 seconds to all digits. Mild edema noted extending up to the right mid-leg. Neuro: Gross and protective sensation diminished. Derm: Right heel - 4 cm x 4 cm x 0.2 cm posterior right heel non-stageable ulceration with mild periwound erythema, wound bed is necrotic, granular 30:70, moderate sero-sanguineous drainage, no malodor, negative probe to bone, no tracking/tunneling/undermining noted. MSK: No Pain on palpating the deon-ulcerative site. MMT 4/5 in all major muscle groups. - Neurological Exam Neurological Exam: Alert, Awake, Oriented x3 - Psychiatric Exam Psychiatric exam: Normal Affect, Normal Mood Assessment and Plan - Assessment and Plan (Free Text) Assessment: 82 year old female patient with right heel ulceration; non stageable. Plan: Patient seen and evaluated. Plan discussed with Dr. Owusu Charts, labs and vitals reviewed: Afebrile, No leukocytosis, HbA1C 8.0 (06/21/18) R heel X-ray: No evidence of osteomyelitis noted R foot MRI done: No evidence of osteomyelitis Wound Culture: MRSA Local wound care; Wound was flushed with saline and dressed with Santyl, DSD Multipodus boots to be worn at all times. Continue with Physical therapy. Up on discharge, Patient needs the following: - Dressing change to her right heel ulceration every other day by the home nurse using Santyl, Maxorb, 4X4 gauze, ABD pad and kerlix. - Multipodus boots to be worn at all times while in bed. - Heel wedge shoe to be worn all the times with ambulation. - Patient to follow up with Dr. Patterson upon discharge. - Patient instructed to go to the ED if she has any sign or symptom of infection (systemic: Fever, nausea, vomiting....etc, Local: redness, hotness, swelling, Purulence, malodor, any new ulceration in her feet) Podiatry will continue to follow up the patient while in house. <Robby Owusu - Last Filed: 07/04/18 07:45> Objective - Vital Signs/Intake and Output Vital Signs (last 24 hours): Temp Pulse Resp BP Pulse Ox 98.3 F 72 20 134/73 86 L 07/01/18 10:00 07/01/18 17:46 07/01/18 10:00 07/02/18 11:50 07/01/18 10:00 Attending/Attestation - Attestation I have personally seen and examined this patient.: Yes I have fully participated in the care of the patient.: Yes I have reviewed all pertinent clinical information, including history, physical exam and plan: Yes
--- NOTE | 2018-07-02 14:52 | PN ---
DATE: 07/02/2018 SUBJECTIVE: The patient is in bed, in no acute distress, nontoxic. PHYSICAL EXAMINATION: VITAL SIGNS: Temperature is 98, blood pressure is 160/70, respiratory rate of 18. HEENT: Unremarkable. NECK: Supple. LUNGS: Have decreased breath sounds. HEART: Normal S1 and S2. ABDOMEN: Soft, nontender. LABORATORY DATA: Laboratory examination is reviewed. ASSESSMENT AND PLAN: This is an 82-year-old female who is seen earlier this morning with methicillin-resistant Staphylococcus aureus cellulitis with a negative MRI for osteo. She has completed a course of doxycycline. Currently, now of off antibiotics, afebrile, and the patient is at risk for developing nosocomial infection. Clay Oneill MD
== END 2018-07-02 15:04 | disposition home or self-care (01) | DRG 638 ==
LOC: TRCU 19:16
PROVIDERS: ADMIT Internal Medicine; ATTEND Internal Medicine
PROC: F07Z9FZ Gait Training/Functional Ambulation Treatment using Assistive, Adaptive, Supportive or Protective Equipment (ICD-10-PCS; principal; 2018-06-25)
PROC: F07L6YZ Therapeutic Exercise Treatment of Musculoskeletal System - Lower Back / Lower Extremity using Other Equipment (ICD-10-PCS; 2018-06-26)
PROC: F08Z1FZ Dressing Techniques Treatment using Assistive, Adaptive, Supportive or Protective Equipment (ICD-10-PCS; 2018-06-26)
PROC: F08Z2FZ Grooming/Personal Hygiene Treatment using Assistive, Adaptive, Supportive or Protective Equipment (ICD-10-PCS; 2018-06-26)
DX: E11.621 Type 2 diabetes mellitus with foot ulcer (principal); L97.419 Non-pressure chronic ulcer of right heel and midfoot with unspecified severity; L03.115 Cellulitis of right lower limb; B95.62 Methicillin resistant Staphylococcus aureus infection as the cause of diseases classified elsewhere; E03.9 Hypothyroidism, unspecified; E11.51 Type 2 diabetes mellitus with diabetic peripheral angiopathy without gangrene; I11.0 Hypertensive heart disease with heart failure; I50.9 Heart failure, unspecified; M19.90 Unspecified osteoarthritis, unspecified site; E78.5 Hyperlipidemia, unspecified; E66.01 Morbid (severe) obesity due to excess calories; Z68.38 Body mass index [BMI] 38.0-38.9, adult; Z79.4 Long term (current) use of insulin; Z89.422 Acquired absence of other left toe(s); Z88.0 Allergy status to penicillin